=== PATIENT | male | born 1940 | race Caucasian/White ===

== ENCOUNTER → 2017-11-07 15:20 | Outpatient (CLI) | payer MEDICARE, SELFPAY | PROVIDERS: Visit Provider Emergency Medicine | DX: Z79.899 Other long term (current) drug therapy (principal) ==

== ENCOUNTER → 2017-11-10 13:28 | Outpatient (CLI) | payer MEDICARE, SELFPAY ==
[2017-11-10 15:27] LABS: Prostate Specific Ag, Diagnost < 0.05 ng/mL (0.0-4.0)
== END ==
PROVIDERS: Visit Provider Urology
DX: Z85.46 Personal history of malignant neoplasm of prostate (principal)
CPT/HCPCS: 36415; 84153

== ENCOUNTER → 2017-11-29 07:04 | Outpatient (CLI) | payer MEDICARE, SELFPAY ==
--- NOTE | 2017-11-29 07:07 | CA_ITS ---
PROCEDURE: 2-D M-mode and color Doppler study INDICATIONS FOR THE TEST: Chest pain+ COPD Heart Murmur Tobacco Smoking Palpitations Fatigue Syncope Edema Hypertension+Diabetes Mellitus+ Rheumatic Fever SOB+KRAMER Obesity+Hyperlipidemia+ Family History HD Additional History PROSTATE CA, STENT,CABG PATIENT INFORMATION HEIGHT: 67 WEIGHT:227 GENDER: Male B/P:125/56 2-D/M-MODE INTERPRETATION: 2-D MEASUREMENTS OBSERVED VALUES IN CMS Right Ventricular Dimension (RVDd) 2.7 Interventricular Septum (Thickness)(IVsd) 2.0 Left Ventricular Internal Dimensions(LVIDd) 5.1 Left Ventricular Posterior Wall (Thickness)(LVPWd) 1.0 Aortic Root 3.3 Aortic Cusp Separation 1.7 Left Atrial Dimensions (LAD) 5.2 2D 1. Technically difficult study because of the patient's factor and poor acoustic windows 2. The left atrium is moderately enlarged, left ventricle is normal size, there is mild concentric left ventricular hypertrophy, there is abnormal septal motion, visually estimated ejection fraction approximately 55% with no obvious regional wall motion abnormality. 3. The right atrium and right ventricle are mildly enlarged with normal contractility. 4. The aortic valve is minimally thickened and fibrosed. 5. The mitral and tricuspid valve leaflets are minimally thickened. 6. No significant pericardial effusion noted. DOPPLER INTERROGATION: Doppler interrogation of the aortic, mitral and tricuspid valvular presence of mild mitral and tricuspid regurgitation, tricuspid and jet velocity insufficient for calculation of the right ventricular systolic pressure, diastolic parameters are inconclusive. CONCLUSION: 1. Technically difficult study because of the patient's factor and poor acoustic windows. 2. Moderately enlarged left atrium, normal left ventricular size, mild concentric left ventricular hypertrophy, visually estimated ejection fraction approximately 55% with no obvious regional wall motion abnormality, there is abnormal septal motion. Diastolic parameters are inconclusive. 3. Mild mitral and tricuspid regurgitation 4. No significant pericardial effusion noted.
--- NOTE | 2017-11-29 07:07 | NM_ITS ---
History and Indications: Coronary artery disease, previous MO, angioplasty ascending, but possibility, hypertension, diabetes, hyperlipidemia, family history, chest pain and shortness of breath. Procedure: Patient received a 0.4, with Lexiscan, resting heart rate was 65 beats per resting blood pressure 142/58, with Lexiscan maximum heart rate achieved was 81 bpm which is less than 85% of the maximum predicted heart rate and a blood pressure was 139/66. With Lexiscan complaint no shortness of breath. Electrocardiogram: Resting electrocardiogram showed sinus rhythm left bundle-branch block with Lexiscan there is less than 1.[address] segment depression noted from the baseline EKG. The EKG portion of the Lexiscan Myoview is nondiagnostic. Cardiac stress and resting SPECT images: Cardiac stress and resting SPECT images were obtained using technetium 99 Myoview 30.0 mCi at stress and 9.7 millicuries at rest, gated SPECT further analysis of segmental wall motion and calculation of the ejection fraction also done. Cardiac stress and rest SPECT images show a mild fixed defect in the inferior wall with normal contractility in the gated SPECT is likely secondary to soft tissue attenuation, no reversible ischemia seen. Computer derived ejection fraction is 60% with no obvious regional wall motion abnormality, right ventricle is normal size and contractility. Conclusion: 1. The EKG portion of the Lexiscan Myoview is nondiagnostic. 2. No obvious scintigraphic evidence of reversible ischemia seen, computer derived ejection fraction is 60% with no obvious regional wall motion abnormality, right ventricle is normal size and contractility.
--- NOTE | 2017-11-29 09:23 | HMH.ITSHM ---
GABAPENTIN RANITIDINE SPIRONOLACTONE OMEPRAZOLE GEMFIBROZIL FUROSEMIDE ROSUVASTATIN FERROUS GLUC ASA METOPROLOL ISOSORBIDE TAMSULOSIN LISINOPRIL LANTUS NOVOLOG
== END ==
PROVIDERS: PCP Emergency Medicine; Visit Provider Internal Medicine
DX: I25.10 Atherosclerotic heart disease of native coronary artery without angina pectoris (principal); R07.9 Chest pain, unspecified; I27.20 Pulmonary hypertension, unspecified; I50.9 Heart failure, unspecified; E11.8 Type 2 diabetes mellitus with unspecified complications; R06.00 Dyspnea, unspecified; N18.2 Chronic kidney disease, stage 2 (mild)
CPT/HCPCS: 78452; 93017; 93306; A9502; J2785

== ENCOUNTER → 2018-01-13 11:31 | Outpatient (CLI) | payer MEDICARE, SELFPAY ==
[2018-01-13 11:52] LABS: Basophils % 0.4 % (0.1-2.0); Eosinophils # 0.3 K/mm3 (0.0-0.4); Eosinophils % 3.4 % (0.1-12.0); Lymphocytes # 1.3 K/mm3 (0.7-4.5); Mean Corpuscular HGB Conc 28.6 g/dL (31.8-35.4); Mean Corpuscular Hemoglobin 27.8 pg (27.0-31.2); Mean Corpuscular Volume 97.1 fl (80-94); Mean Platelet Volume 8.9 fl (7.4-10.4); Monocytes # 0.4 K/mm3 (0.1-1.0); Monocytes % 5.8 % (1.7-9.3); Neutrophils # 5.3 K/mm3 (1.8-7.8); Neutrophils % 72.4 % (37.0-80.0); Platelet Count 255 K/mm3 (142-424); Red Blood Count 2.83 M/mm3 (4.60-6.20); Red Cell Distribution Width 18.3 % (11.5-17.5); White Blood Count 7.3 K/mm3 (4.8-10.8)
[2018-01-13 12:12] LABS: Hematocrit 27.5 % (42.0-52.0)
[2018-01-13 12:16] LABS: Anion Gap 15.7 mEq/L (5-15); Blood Urea Nitrogen 44 mg/dL (7-18); Calcium 8.8 mg/dL (8.5-10.1); Carbon Dioxide 25 mmol/L (21.0-32.0); Chloride 102 mmol/L (98-107); Creatinine,Serum 1.86 mg/dL (0.70-1.30); Estimated Glomerular Filt Rate 36 ml/min (>60); GFR (African American) 43 ML/MIN (>60); Glucose 307 mg/dL (74-106); Hemoglobin 7.8 g/dL (14.1-18.0); Potassium 4.7 mmoL/L (3.5-5.1); Sodium 138 mmol/L (136-145)
== END ==
PROVIDERS: Visit Provider Internal Medicine Cardiovascular Disease
DX: E78.4 Other hyperlipidemia (principal)
CPT/HCPCS: 36415; 80048; 85025; 93225

== ENCOUNTER 2018-01-13 14:08 | Observation (INO) ==
[2018-01-13 14:28] LABS: Basophils % 0.5 % (0.1-2.0); Eosinophils # 0.3 K/mm3 (0.0-0.4); Hematocrit 24.7 % (42.0-52.0); Lymphocytes # 1.4 K/mm3 (0.7-4.5); Lymphocytes % 18.1 K/mm3 (10-50); Mean Corpuscular HGB Conc 30.1 g/dL (31.8-35.4); Mean Corpuscular Hemoglobin 29.1 pg (27.0-31.2); Mean Corpuscular Volume 96.5 fl (80-94); Mean Platelet Volume 7.7 fl (7.4-10.4); Monocytes # 0.4 K/mm3 (0.1-1.0); Monocytes % 5.8 % (1.7-9.3); Neutrophils # 5.5 K/mm3 (1.8-7.8); Neutrophils % 71.6 % (37.0-80.0); Platelet Count 258 K/mm3 (142-424); Red Blood Count 2.56 M/mm3 (4.60-6.20); Red Cell Distribution Width 18.4 % (11.5-17.5); White Blood Count 7.7 K/mm3 (4.8-10.8)
[2018-01-13 14:30] LABS: Hemoglobin 7.4 g/dL (14.1-18.0)
--- NOTE | 2018-01-13 14:31 | Emergency Department Note ---
ED Disposition Clinical Impression: Guaiac positive stools Anemia Qualifiers: Anemia type: unspecified type Qualified Code(s): D64.9 - Anemia, unspecified Disposition: Still a Patient Condition on Discharge: Fair Referrals: Duncan Heard MD [Primary Care Provider] - - Critical Care Critical Care Time: No Attestation: On 01/13/18, the high probability of a clinically significant, sudden or life threatening deterioration of the following system(s) required my full and direct attention, intervention and personal management. The time I documented below is in addition to time spent performing reported procedures but includes the following listed in this critical care notation. Medical Decision Making - Bill Inquiry Pt receiving controlled substance: No Vital Signs: 01/13/18 14:09 Temperature 97.8 F Temperature Source Oral Pulse Rate [Right Radial] 85 Respiratory Rate 22 Blood Pressure [Right Arm] 125/55 Blood Pressure Mean [Right Arm] 78 Blood Pressure Source [Right Arm] Automatic Cuff Blood Pressure Position [Right Arm] Sitting 02 Sat by Pulse Oximetry 95 Oxygen Delivery Method Room Air - Lab Data Lab Results 01/13/18 14:18: WBC 7.7, RBC 2.56 L, Hgb 7.4 L*, Hct 24.7 L, MCV 96.5 H, MCH 29.1, MCHC 30.1 L, RDW 18.4 H, Plt Count 258, MPV 7.7, Neut % (Auto) 71.6, Lymph % (Auto) 18.1, Sampson % (Auto) 5.8, Eos % (Auto) 4.0, Baso % (Auto) 0.5, Neut # (Auto) 5.5, Lymph # (Auto) 1.4, Sampson # (Auto) 0.4, Eos # (Auto) 0.3, Baso # (Auto) 0.0 01/13/18 14:18: Sodium 136, Potassium 4.6, Chloride 103, Carbon Dioxide 22, Anion Gap 15.6 H, BUN 45 H, Creatinine 1.94 H, Estimated Creat Clear 48, Estimated GFR 34 L, Est GFR ( Amer) 41 L, Glucose 304 H, Calcium 8.5 01/13/18 14:18: Troponin I < 0.02 01/13/18 14:40: Stool Occult Blood Positive A Result diagrams: 01/13/18 14:18 01/13/18 14:18 - ECG Data Tracing #1 EKG interpreted by Deondre Parker MD: Rhythm: sinus Rate: 81 Martha: normal Ectopy: Premature atrial contractions Conduction: Nonspecific intraventricular conduction delay ST Segment Changes: none T Wave Changes: none Q Waves: none Poor R-wave progression No evidence of acute ischemia or injury Prior electrocardiagrams reviewed. No change from prior tracings. - Physician Consults Physician Consulted: [place] Time: 15:22 Reason -: Admission Comment/Response: Agrees to admit the patient to the hospital. We discussed the patient's clinical information, including history, exam, laboratory and radiology results and ED course. Per hospital procedure, I will write temporary bridge inpatient orders on the patient. Specific orders requested by the admitting physician: Transfuse 2 units packed red blood cells, surgery consult, intravenous Protonix twice daily Additional Consult: Satya Time: 15:29 Reason -: Surgical Eval/Care General Adult HPI - General Chief complaint: Shortness of Breath/Dyspnea Stated complaint: SOA Time Seen by Provider: 01/13/18 14:30 Mode of Arrival: Wheelchair Limitations: No Limitations Description of Symptoms (Recalled from ER Triage Doc. by RN): Pt was seen by [facility] steam train driver today and his blood resulted with a hemoglobin of 7.8 and was asked to f/u in the ER. Pt states he is feeling short of breath. - History of Present Illness HPI narrative: States does not feel well for about 2-3 weeks. Dizzy, lightheaded. Feels weak. States that his home health nurse saw him yesterday and told him his blood pressure was low, he was not getting enough oxygen to his heart, he should go to [facility] to be checked out. He was seen in the steam train driver's office today. He had blood work that showed a hemoglobin of 7.4. He was sent to the emergency room for further evaluation. He is on 2 iron tablets a day. He says his stool has been black for couple of months. He has not vomited any blood. He has never received a transfusion. I reviewed his previous laboratory data and his hemoglobin was 9.2 on 02/24/17. He says he has never been told that he was anemic. - Related Data Home Medications Medication Instructions Recorded Confirmed aspirin 81 mg tablet,delayed 81 mg PO QDAY 08/05/17 01/13/18 release blood sugar diagnostic strips See Dose Instructions .ROUTE 08/05/17 01/13/18 .MEDSUPPLY #20 each insulin glargine (U-100) 100 65 unit SUB-Q BID ml 08/05/17 01/13/18 unit/mL subcutaneous solution insulin human U-100 NPH-regulr 10 unit SUB-Q BID 08/05/17 01/13/18 70-30 mix 100 unit/mL subcutaneous susp metoprolol tartrate 25 mg tablet 25 mg PO BID 08/05/17 01/13/18 gabapentin 300 mg capsule 300 mg PO Q8H 11/07/17 01/13/18 ranitidine 150 mg capsule 150 mg PO QHS 11/07/17 01/13/18 rosuvastatin 5 mg tablet 5 mg PO QHS tab 11/08/17 01/13/18 Clopidogrel Bisulfate [Plavix 75mg 75 mg PO DAILY 01/13/18 01/13/18 Tab] Furosemide [Furosemide 40MG tAB] 40 mg PO DAILY 01/13/18 01/13/18 Gabapentin [Neurontin 600mg 600 mg PO TID 01/13/18 01/13/18 tablet] Gemfibrozil 600 mg PO BID 01/13/18 01/13/18 Isosorbide Mononitrate [Imdur 60mg 60 mg PO QAM 01/13/18 01/13/18 ER tablet] Omeprazole [Omeprazole 20mg 20 mg PO DAILY 01/13/18 01/13/18 Capsule] Spironolactone [Aldactone 50mg Tab] 50 mg PO QAM 01/13/18 01/13/18 Tamsulosin HCl [Flomax] 0.4 mg PO DAILY 01/13/18 01/13/18 ferrous gluconate 324 mg (36 mg 324 mg PO BID 01/13/18 01/13/18 iron) tablet lisinopril 10 mg tablet 5 mg PO QDAY tab 01/13/18 01/13/18 Allergies Allergy/AdvReac Type Severity Reaction Status Date / Time oxycodone Allergy Intermediate I-RASH Verified 11/07/17 14:59 Sulfa (Sulfonamide Allergy Unknown Verified 11/07/17 14:59 Antibiotics) [facility] History I have reviewed the patient's past medical history: Yes Medical History: Reports:: Cancer, Congestive Heart Failure, Diabetes Mellitus Type 2, Gastroesophageal Reflux Disease(GERD), Hyperlipidemia, Hypertension, Kidney Stones, Myocardial Infarction Denies:: Diabetes Mellitus Type 1 Other Medical History: Reports: Arthritis Other Surgeries: Yes: Angioplasty, Cancer Surgery, Colonoscopy, Hernia Repair Amputation: No Fractures: No - Social History Smoking Status: Former smoker Alcohol Intake: never Alcohol Intake Frequency:: other Substance Use Type: denies use - Psychiatric History Expresses thoughts of harming self/others: None Suicide Plan Description: No Plan Family Hx:: Diabetes, Heart Attack, Cancer, Hyperlipidemia ROS Obtained: Yes All systems reviewed & no additional complaints - Constitutional Constitutional: Reports fatigue, Reports weakness - Cardiovascular Cardiovascular: Denies chest pain - Respiratory Respiratory: Yes dyspnea - Gastrointestinal Gastrointestingal: Reports: black, tarry stools. Denies: abdominal pain, vomiting blood Physical Exam - General General appearance: alert, in no apparent distress - Head Head exam: atraumatic, normocephalic, normal inspection - Eye Eye exam: Present: normal appearance, PERRL, EOMI - ENT ENT exam: Present: normal exam, normal oropharynx, mucous membranes moist, TM's normal bilaterally, normal external ear exam - Neck Neck exam: Present: normal inspection, full ROM, trachea midline. Absent: meningismus, lymphadenopathy - Chest Chest inspection: Present: normal inspection, symmetric chest wall rise. Absent : tenderness - Respiratory Respiratory exam: Present: normal lung sounds bilaterally. Absent: respiratory distress - Cardiovascular Cardiovascular exam: Present: regular rate, normal rhythm. Absent: JVD - Abdominal Exam Abdominal exam: Present: soft, normal bowel sounds. Absent: distention, tenderness, guarding - exam: Present: other (Dark stool) - Extremities Exam Extremities exam: Present: normal inspection, full ROM, normal capillary refill. Absent: calf tenderness - Neurological Exam Neurological exam: Present: alert, oriented X3 - Psychiatric Psychiatric exam: Present: normal affect, normal mood - Skin Skin exam: Present: warm, dry, intact, normal color
[2018-01-13 14:35] LABS: Anion Gap 15.6 mEq/L (5-15); Calcium 8.5 mg/dL (8.5-10.1); Potassium 4.6 mmoL/L (3.5-5.1)
--- NOTE | 2018-01-13 16:02 | Consult Report ---
*Admission Date: 01/13/18 *Chief complaint: Dizziness and weakness *History of present illness: This is a 77-year-old gentleman with a complex past medical history including coronary artery disease (s/p CABG), myocardial infarction, and claudication who presented to an outpatient cardiology appointment earlier today for further evaluation and management of recent "dizzy spells and weakness". He was found to be quite anemic with a hemoglobin of 7.4. He was transferred to the emergency department for further evaluation and management. He is on aspirin and Plavix. No definitive bright red blood per rectum. "Dark stool" for a couple months. No hematemesis. His symptoms are worsened over the past few weeks. Review of Systems - Constitutional Denies anorexia - ENT Denies bleeding gums - *Cardiovascular Denies chest pain - *Respiratory Denies cough - *Gastrointestinal Reports black, tarry stools, Denies vomiting blood - *Neurologic Reports weakness [facility] History Medical History: Reports:: Cancer, Congestive Heart Failure, Diabetes Mellitus Type 2, Gastroesophageal Reflux Disease(GERD), Hyperlipidemia, Hypertension, Kidney Stones, Myocardial Infarction Denies:: Diabetes Mellitus Type 1 Other Medical History: Reports: Arthritis Other Surgeries: Yes: Angioplasty, CABG, Cancer Surgery, Colonoscopy, Hernia Repair Amputation: No Fractures: No - *Social History Smoking Status: Former smoker Alcohol Intake: never Alcohol Intake Frequency:: other Substance Use Type: denies use - Psychiatric History Expresses thoughts of harming self/others: None Suicide Plan Description: No Plan *Family Hx:: Diabetes, Heart Attack, Cancer, Hyperlipidemia Meds Home Medications Medication Instructions Recorded Confirmed Type aspirin 81 mg tablet,delayed 81 mg PO QDAY 08/05/17 01/13/18 History release blood sugar diagnostic strips See Dose Instructions .ROUTE 08/05/17 01/13/18 History .MEDSUPPLY #20 each insulin glargine (U-100) 100 65 unit SUB-Q BID ml 08/05/17 01/13/18 History unit/mL subcutaneous solution insulin human U-100 NPH-regulr 10 unit SUB-Q BID 08/05/17 01/13/18 History 70-30 mix 100 unit/mL subcutaneous susp metoprolol tartrate 25 mg tablet 25 mg PO BID 08/05/17 01/13/18 History gabapentin 300 mg capsule 300 mg PO Q8H 11/07/17 01/13/18 History ranitidine 150 mg capsule 150 mg PO QHS 11/07/17 01/13/18 History rosuvastatin 5 mg tablet 5 mg PO QHS tab 11/08/17 01/13/18 History Clopidogrel Bisulfate [Plavix 75mg 75 mg PO DAILY 01/13/18 01/13/18 History Tab] Furosemide [Furosemide 40MG tAB] 40 mg PO DAILY 01/13/18 01/13/18 History Gabapentin [Neurontin 600mg 600 mg PO TID 01/13/18 01/13/18 History tablet] Gemfibrozil 600 mg PO BID 01/13/18 01/13/18 History Isosorbide Mononitrate [Imdur 60mg 60 mg PO QAM 01/13/18 01/13/18 History ER tablet] Omeprazole [Omeprazole 20mg 20 mg PO DAILY 01/13/18 01/13/18 History Capsule] Spironolactone [Aldactone 50mg Tab] 50 mg PO QAM 01/13/18 01/13/18 History Tamsulosin HCl [Flomax] 0.4 mg PO DAILY 01/13/18 01/13/18 History ferrous gluconate 324 mg (36 mg 324 mg PO BID 01/13/18 01/13/18 History iron) tablet lisinopril 10 mg tablet 5 mg PO QDAY tab 01/13/18 01/13/18 History Allergies Allergy/AdvReac Type Severity Reaction Status Date / Time oxycodone Allergy Intermediate I-RASH Verified 11/07/17 14:59 Sulfa (Sulfonamide Allergy Unknown Verified 11/07/17 14:59 Antibiotics) Exam Vital signs and Labs for Last 24 Hours: Temp Pulse Resp BP Pulse Ox 97.8 F 73 20 124/62 96 01/13/18 14:09 01/13/18 15:32 01/13/18 15:32 01/13/18 15:32 01/13/18 15:32 Laboratory Results - last 24 hr 01/13/18 14:18: WBC 7.7, RBC 2.56 L, Hgb 7.4 L*, Hct 24.7 L, MCV 96.5 H, MCH 29.1, MCHC 30.1 L, RDW 18.4 H, Plt Count 258, MPV 7.7, Neut % (Auto) 71.6, Lymph % (Auto) 18.1, Noble % (Auto) 5.8, Eos % (Auto) 4.0, Baso % (Auto) 0.5, Neut # (Auto) 5.5, Lymph # (Auto) 1.4, Noble # (Auto) 0.4, Eos # (Auto) 0.3, Baso # (Auto) 0.0 01/13/18 14:18: Sodium 136, Potassium 4.6, Chloride 103, Carbon Dioxide 22, Anion Gap 15.6 H, BUN 45 H, Creatinine 1.94 H, Estimated Creat Clear 48, Estimated GFR 34 L, Est GFR ( Amer) 41 L, Glucose 304 H, Calcium 8.5 01/13/18 14:18: Troponin I < 0.02 01/13/18 14:40: Stool Occult Blood Positive A I & O for Last 24 hours: Intake & Output 01/11/18 01/12/18 01/13/18 01/14/18 11:59 11:59 11:59 11:59 Weight 227 lb - Constitutional no acute distress - *Routine Respiratory Exam Absent: respiratory distress - *Routine Cardiovascular Exam Present: RRR - *Routine Abdominal Exam Present: soft Results - Labs 01/13/18 14:18 01/13/18 14:18 Laboratory Results - last 24 hr 01/13/18 14:18: WBC 7.7, RBC 2.56 L, Hgb 7.4 L*, Hct 24.7 L, MCV 96.5 H, MCH 29.1, MCHC 30.1 L, RDW 18.4 H, Plt Count 258, MPV 7.7, Neut % (Auto) 71.6, Lymph % (Auto) 18.1, Noble % (Auto) 5.8, Eos % (Auto) 4.0, Baso % (Auto) 0.5, Neut # (Auto) 5.5, Lymph # (Auto) 1.4, Noble # (Auto) 0.4, Eos # (Auto) 0.3, Baso # (Auto) 0.0 01/13/18 14:18: Sodium 136, Potassium 4.6, Chloride 103, Carbon Dioxide 22, Anion Gap 15.6 H, BUN 45 H, Creatinine 1.94 H, Estimated Creat Clear 48, Estimated GFR 34 L, Est GFR ( Amer) 41 L, Glucose 304 H, Calcium 8.5 01/13/18 14:18: Troponin I < 0.02 01/13/18 14:40: Stool Occult Blood Positive A Assessment and Plan (1) Melena Current visit: Yes Status: Acute Category: Medical Code(s): K92.1 - Melena Esophagogastroduodenoscopy-I have discussed the risks and benefits and he agrees to proceed (2) Anemia Current visit: Yes Status: Acute Qualifiers: Anemia type: unspecified type Qualified Code(s): D64.9 - Anemia, unspecified Category: Medical Code(s): D64.9 - Anemia, unspecified (3) Guaiac positive stools Current visit: Yes Status: Acute Category: Medical Code(s): R19.5 - Other fecal abnormalities Hold ASA and Plavix for now Transfuse as needed Serial H&H EGD today PPI Consider repeat c-scope in near future
--- NOTE | 2018-01-13 16:08 | Pharmacy Consult Notes ---
[facility] Pharmacy VTE Monitoring - Patient Demographics Admission date: 01/13/18 Report Date: 01/13/18 Time: 16:08 Allergies/Adverse Reactions: Patient Allergies oxycodone Allergy (Intermediate, Verified 11/07/17 14:59) I-RASH Sulfa (Sulfonamide Antibiotics) Allergy (Unknown, Verified 11/07/17 14:59) Height: 1.7 m Weight: 102.965 kg Patient Problems: Current Active Problems Anemia (Acute) Guaiac positive stools (Acute) Melena (Acute) - VTE Risk Labs: VTE Related Lab Results Hgb 7.4 g/dL (14.1-18.0) L* 01/13/18 14:18 Hct 24.7 % (42.0-52.0) L 01/13/18 14:18 Plt Count 258 K/mm3 (142-424) 01/13/18 14:18 BUN 45 mg/dL (7-18) H 01/13/18 14:18 Creatinine 1.94 mg/dL (0.70-1.30) H 01/13/18 14:18 Estimated Creat Clear 48 mL/min (0-300) 01/13/18 14:18 Clinical Trial Participant: No - Prophylaxis VTE Prophylaxis Ordered?: Yes Types of VTE Prophylaxis: TEDS Knee High
--- NOTE | 2018-01-13 22:14 | History & Physical Report ---
*Admission Date: 01/13/18 *Chief complaint: weakness *History of present illness: This is a 77-year-old gentleman with a complex past medical history including coronary artery disease (s/p CABG), myocardial infarction, and claudication who presented to an outpatient cardiology appointment earlier today for further evaluation and management of recent "dizzy spells and weakness". He was found to be quite anemic with a hemoglobin of 7.4. He was transferred to the emergency department for further evaluation and management. He is on aspirin and Plavix. No definitive bright red blood per rectum. "Dark stool" for a couple months. No hematemesis. His symptoms are worsened over the past few weeks. sue does not feel well for about 2-3 weeks. Dizzy, lightheaded. Feels weak. States that his home health nurse saw him yesterday and told him his blood pressure was low, he was not getting enough oxygen to his heart, he should go to [facility] to be checked out. He was seen in the insulating machine operator's office today. He had blood work that showed a hemoglobin of 7.4. He was sent to the emergency room for further evaluation. He is on 2 iron tablets a day. He says his stool has been black for couple of months. He has not vomited any blood. He has never received a transfusion. I reviewed his previous laboratory data and his hemoglobin was 9.2 on 02/24/17. [facility] History I have reviewed the patient's past medical history: Yes Medical History: Reports:: Cancer, Congestive Heart Failure, Diabetes Mellitus Type 2, Gastroesophageal Reflux Disease(GERD), Hyperlipidemia, Hypertension, Kidney Stones, Myocardial Infarction Denies:: Diabetes Mellitus Type 1, MRSA Other Medical History: Reports: Anemia, Arthritis Laterality Cases: Bilateral: Cataract Other Surgeries: Yes: Angioplasty, CABG, Cancer Surgery, Colonoscopy, Hernia Repair Amputation: No Fractures: No - *Social History Educational Level: Attended High School Smoking Status: Former smoker Tobacco Type: cigarettes Alcohol Intake: never Alcohol Intake Frequency:: other Substance Use Type: denies use Occupational Status: retired Housing: house Household Members: spouse, children - Psychiatric History Expresses thoughts of harming self/others: None Suicide Plan Description: No Plan *Family Hx:: Diabetes, Heart Attack, Cancer, Hyperlipidemia Review of Systems - Review of Systems Review of systems:: pertinent systems reviewed and negative unless documented below - Constitutional Denies fever(s), Denies headache(s) - Eyes Denies change in vision - ENT Denies sore throat - *Cardiovascular Denies chest pain at rest - *Respiratory Denies cough - *Gastrointestinal Reports black, tarry stools, Denies abdominal pain - *Genitourinary Denies blood in urine - *Musculoskeletal Denies joint pain, Denies joint swelling - Integumentary/Breasts Denies rash - *Neurologic Reports dizziness, Reports weakness, Denies confusion, Denies frequent falls, Denies loss of vision - Psychiatric Denies anxiety Meds Home Medications Medication Instructions Recorded Confirmed Type aspirin 81 mg tablet,delayed 81 mg PO QDAY 08/05/17 01/13/18 History release blood sugar diagnostic strips See Dose Instructions .ROUTE 08/05/17 01/13/18 History .MEDSUPPLY #20 each insulin glargine (U-100) 100 65 unit SUB-Q BID ml 08/05/17 01/13/18 History unit/mL subcutaneous solution insulin human U-100 NPH-regulr 10 unit SUB-Q BID 08/05/17 01/13/18 History 70-30 mix 100 unit/mL subcutaneous susp metoprolol tartrate 25 mg tablet 25 mg PO BID 08/05/17 01/13/18 History gabapentin 300 mg capsule 300 mg PO Q8H 11/07/17 01/13/18 History ranitidine 150 mg capsule 150 mg PO QHS 11/07/17 01/13/18 History rosuvastatin 5 mg tablet 5 mg PO QHS tab 11/08/17 01/13/18 History Clopidogrel Bisulfate [Plavix 75mg 75 mg PO DAILY 01/13/18 01/13/18 History Tab] Furosemide [Furosemide 40MG tAB] 40 mg PO DAILY 01/13/18 01/13/18 History Gabapentin [Neurontin 600mg 600 mg PO TID 01/13/18 01/13/18 History tablet] Gemfibrozil 600 mg PO BID 01/13/18 01/13/18 History Isosorbide Mononitrate [Imdur 60mg 60 mg PO QAM 01/13/18 01/13/18 History ER tablet] Omeprazole [Omeprazole 20mg 20 mg PO DAILY 06/15/18 06/15/18 History Capsule] Spironolactone [Aldactone 50mg Tab] 50 mg PO QAM 01/13/18 01/13/18 History Tamsulosin HCl [Flomax] 0.4 mg PO DAILY 01/13/18 01/13/18 History ferrous gluconate 324 mg (36 mg 324 mg PO BID 01/13/18 01/13/18 History iron) tablet lisinopril 10 mg tablet 5 mg PO QDAY tab 01/13/18 01/13/18 History Allergies Allergy/AdvReac Type Severity Reaction Status Date / Time oxycodone Allergy Intermediate I-RASH Verified 11/07/17 14:59 Sulfa (Sulfonamide Allergy Unknown Verified 11/07/17 14:59 Antibiotics) Exam Vital signs and Labs for Last 24 Hours: Temp Pulse Resp BP Pulse Ox 97.5 F L 65 18 131/72 98 01/13/18 20:30 01/13/18 20:30 01/13/18 20:30 01/13/18 20:30 01/13/18 20:30 Laboratory Results - last 24 hr 01/13/18 14:18: WBC 7.7, RBC 2.56 L, Hgb 7.4 L*, Hct 24.7 L, MCV 96.5 H, MCH 29.1, MCHC 30.1 L, RDW 18.4 H, Plt Count 258, MPV 7.7, Neut % (Auto) 71.6, Lymph % (Auto) 18.1, [place] % (Auto) 5.8, Eos % (Auto) 4.0, Baso % (Auto) 0.5, Neut # (Auto) 5.5, Lymph # (Auto) 1.4, [place] # (Auto) 0.4, Eos # (Auto) 0.3, Baso # (Auto) 0.0 01/13/18 14:18: Sodium 136, Potassium 4.6, Chloride 103, Carbon Dioxide 22, Anion Gap 15.6 H, BUN 45 H, Creatinine 1.94 H, Estimated Creat Clear 48, Estimated GFR 34 L, Est GFR ( Amer) 41 L, Glucose 304 H, Calcium 8.5 01/13/18 14:18: Troponin I < 0.02 01/13/18 14:40: Stool Occult Blood Positive A 01/13/18 16:00: Blood Type A Positive, Antibody Screen Negative, Crossmatch (AHG ) See Detail 01/13/18 16:45: Blood Type Confirm A Positive I & O for Last 24 hours: Intake & Output 01/11/18 01/12/18 01/13/18 01/14/18 11:59 11:59 11:59 11:59 Intake Total 120 / 120 Output Total 400 / 400 Balance -280 / -280 Weight 227 lb - Constitutional no acute distress, obese - *Routine HEENT Exam Head: Present: normocephalic Eye: Present: EOMI, PERRL. Absent: conjunctival icterus, scleral injection ENT: Present: mucous membranes dry - *Routine Neck Exam Absent: JVD - *Routine Respiratory Exam Present: CTA bilaterally - *Routine Cardiovascular Exam Present: RRR, murmur, S4 - *Routine Abdominal Exam Present: soft. Absent: tenderness - *Routine Extremities Exam Absent: calf tenderness - *Routine Skin Exam Present: intact - *Routine Neurological Exam Present: alert, oriented X3, CN II-XII intact - Routine Psychiatric Exam Present: normal affect H&P: Result - Labs Labs: Short CBC 01/13/18 Range/Units 14:18 WBC 7.7 (4.8-10.8) K/mm3 Hgb 7.4 L* (14.1-18.0) g/dL Hct 24.7 L (42.0-52.0) % Plt Count 258 (142-424) K/mm3 BMP 01/13/18 14:18 Sodium 136 Potassium 4.6 Chloride 103 Carbon Dioxide 22 BUN 45 H Creatinine 1.94 H Glucose 304 H Calcium 8.5 Cardiac Enzymes 01/13/18 Range/Units 14:18 Troponin I < 0.02 (0.00-0.06) ng/ml Assessment and Plan (1) Melena Current visit: Yes Status: Acute Category: Medical Code(s): K92.1 - Melena (2) Anemia Current visit: Yes Status: Acute Qualifiers: Anemia type: unspecified type Qualified Code(s): D64.9 - Anemia, unspecified Category: Medical Code(s): D64.9 - Anemia, unspecified (3) Guaiac positive stools Current visit: Yes Status: Acute Category: Medical Code(s): R19.5 - Other fecal abnormalities (4) Renal insufficiency Current visit: Yes Status: Acute Category: Medical Code(s): N28.9 - Disorder of kidney and ureter, unspecified (5) IDDM (insulin dependent diabetes mellitus) Current visit: Yes Status: Acute Category: Medical Code(s): E11.9 - Type 2 diabetes mellitus without complications; Z79.4 - intermodal dispatcher (current) 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
[2018-01-14 05:01] LABS: Calcium 8.4 mg/dL (8.5-10.1)
[2018-01-14 05:06] LABS: Basophils % 0.5 % (0.1-2.0); Eosinophils # 0.2 K/mm3 (0.0-0.4); Lymphocytes # 1.1 K/mm3 (0.7-4.5); Lymphocytes % 20.8 K/mm3 (10-50); Mean Corpuscular HGB Conc 33.2 g/dL (31.8-35.4); Mean Corpuscular Hemoglobin 31.5 pg (27.0-31.2); Mean Platelet Volume 7.5 fl (7.4-10.4); Monocytes # 0.3 K/mm3 (0.1-1.0); Monocytes % 5.6 % (1.7-9.3); Neutrophils # 3.5 K/mm3 (1.8-7.8); Neutrophils % 69.1 % (37.0-80.0); Platelet Count 203 K/mm3 (142-424); Red Blood Count 2.75 M/mm3 (4.60-6.20); Red Cell Distribution Width 17.4 % (11.5-17.5); White Blood Count 5.1 K/mm3 (4.8-10.8)
[2018-01-14 05:07] LABS: Hematocrit 26.1 % (42.0-52.0); Hemoglobin 8.7 g/dL (14.1-18.0)
--- NOTE | 2018-01-14 06:59 | Progress Note ---
Internal Medicine - PN: Subj *Date: 01/14/18 *Time: 06:56 Interval history: looking better - no c/o - glu elevated - possible egd pending Exam Vital signs and Labs for Last 24 Hours: Temp Pulse Resp BP Pulse Ox 98.6 F 69 20 144/57 94 L 01/14/18 04:15 01/14/18 04:15 01/14/18 04:15 01/14/18 04:15 01/14/18 04:15 Laboratory Results - last 24 hr 01/13/18 14:18: WBC 7.7, RBC 2.56 L, Hgb 7.4 L*, Hct 24.7 L, MCV 96.5 H, MCH 29.1, MCHC 30.1 L, RDW 18.4 H, Plt Count 258, MPV 7.7, Neut % (Auto) 71.6, Lymph % (Auto) 18.1, [place] % (Auto) 5.8, Eos % (Auto) 4.0, Baso % (Auto) 0.5, Neut # (Auto) 5.5, Lymph # (Auto) 1.4, [place] # (Auto) 0.4, Eos # (Auto) 0.3, Baso # (Auto) 0.0 01/13/18 14:18: Sodium 136, Potassium 4.6, Chloride 103, Carbon Dioxide 22, Anion Gap 15.6 H, BUN 45 H, Creatinine 1.94 H, Estimated Creat Clear 48, Estimated GFR 34 L, Est GFR ( Amer) 41 L, Glucose 304 H, Calcium 8.5 01/13/18 14:18: Troponin I < 0.02 01/13/18 14:40: Stool Occult Blood Positive A 01/13/18 16:00: Blood Type A Positive, Antibody Screen Negative, Crossmatch (AHG ) See Detail 01/13/18 16:45: Blood Type Confirm A Positive 01/13/18 21:04: POC Glucose 453 H* 01/14/18 04:35: WBC 5.1 D, RBC 2.75 L, Hgb 8.7 L D, Hct 26.1 L, MCV 95.0 H, MCH 31.5 H, MCHC 33.2, RDW 17.4, Plt Count 203, MPV 7.5, Neut % (Auto) 69.1, Lymph % (Auto) 20.8, [place] % (Auto) 5.6, Eos % (Auto) 4.0, Baso % (Auto) 0.5, Neut # (Auto) 3.5, Lymph # (Auto) 1.1, [place] # (Auto) 0.3, Eos # (Auto) 0.2, Baso # (Auto) 0.0 01/14/18 04:35: Sodium 136, Potassium 5.0, Chloride 104, Carbon Dioxide 23, Anion Gap 14.0, BUN 44 H, Creatinine 1.91 H, Estimated Creat Clear 31, Estimated GFR 35 L, Est GFR ( Amer) 42 L, Glucose 401 H* D, Calcium 8.4 L 01/14/18 06:10: POC Glucose 425 H* I & O for Last 24 hours: Intake & Output 01/11/18 01/12/18 01/13/18 01/14/18 11:59 11:59 11:59 11:59 Intake Total 720 / 720 Output Total 400 / 400 Balance 320 / 320 Weight 325 lb 4 oz - Constitutional no acute distress - *Routine HEENT Exam Head: Present: normocephalic Eye: Present: EOMI, PERRL ENT: Present: mucous membranes dry - *Routine Neck Exam Present: supple - *Routine Respiratory Exam Absent: respiratory distress - *Routine Cardiovascular Exam Present: RRR - *Routine Abdominal Exam Present: soft - *Routine Extremities Exam Absent: calf tenderness - *Routine Skin Exam Present: intact - *Routine Neurological Exam Present: alert, oriented X3, CN II-XII intact - Routine Psychiatric Exam Present: normal affect Assessment and Plan (1) Melena Current visit: Yes Status: Acute Category: Medical Code(s): K92.1 - Melena (2) Anemia Current visit: Yes Status: Acute Qualifiers: Anemia type: unspecified type Qualified Code(s): D64.9 - Anemia, unspecified Category: Medical Code(s): D64.9 - Anemia, unspecified (3) Guaiac positive stools Current visit: Yes Status: Acute Category: Medical Code(s): R19.5 - Other fecal abnormalities (4) Renal insufficiency Current visit: Yes Status: Acute Category: Medical Code(s): N28.9 - Disorder of kidney and ureter, unspecified (5) IDDM (insulin dependent diabetes mellitus) Current visit: Yes Status: Acute Category: Medical Code(s): E11.9 - Type 2 diabetes mellitus without complications; Z79.4 - 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
--- NOTE | 2018-01-14 13:01 | Progress Note ---
Subjective Patient reports: no new complaints (No complaints, no pain. Received 2u PRBC yesterday with increase of hgb from 7.4 to 8.7. Had dark, tarry BM this morning.) Exam Vital signs and Labs for Last 24 Hours: Temp Pulse Resp BP Pulse Ox 97.9 F 69 16 155/57 96 01/14/18 12:20 01/14/18 12:20 01/14/18 12:20 01/14/18 12:20 01/14/18 12:20 Laboratory Results - last 24 hr 01/13/18 14:18: WBC 7.7, RBC 2.56 L, Hgb 7.4 L*, Hct 24.7 L, MCV 96.5 H, MCH 29.1, MCHC 30.1 L, RDW 18.4 H, Plt Count 258, MPV 7.7, Neut % (Auto) 71.6, Lymph % (Auto) 18.1, [place] % (Auto) 5.8, Eos % (Auto) 4.0, Baso % (Auto) 0.5, Neut # (Auto) 5.5, Lymph # (Auto) 1.4, [place] # (Auto) 0.4, Eos # (Auto) 0.3, Baso # (Auto) 0.0 01/13/18 14:18: Sodium 136, Potassium 4.6, Chloride 103, Carbon Dioxide 22, Anion Gap 15.6 H, BUN 45 H, Creatinine 1.94 H, Estimated Creat Clear 48, Estimated GFR 34 L, Est GFR ( Amer) 41 L, Glucose 304 H, Calcium 8.5 01/13/18 14:18: Troponin I < 0.02 01/13/18 14:40: Stool Occult Blood Positive A 01/13/18 16:00: Blood Type A Positive, Antibody Screen Negative, Crossmatch (AHG ) See Detail 01/13/18 16:45: Blood Type Confirm A Positive 01/13/18 21:04: POC Glucose 453 H* 01/14/18 04:35: WBC 5.1 D, RBC 2.75 L, Hgb 8.7 L D, Hct 26.1 L, MCV 95.0 H, MCH 31.5 H, MCHC 33.2, RDW 17.4, Plt Count 203, MPV 7.5, Neut % (Auto) 69.1, Lymph % (Auto) 20.8, [place] % (Auto) 5.6, Eos % (Auto) 4.0, Baso % (Auto) 0.5, Neut # (Auto) 3.5, Lymph # (Auto) 1.1, [place] # (Auto) 0.3, Eos # (Auto) 0.2, Baso # (Auto) 0.0 01/14/18 04:35: Sodium 136, Potassium 5.0, Chloride 104, Carbon Dioxide 23, Anion Gap 14.0, BUN 44 H, Creatinine 1.91 H, Estimated Creat Clear 31, Estimated GFR 35 L, Est GFR ( Amer) 42 L, Glucose 401 H* D, Calcium 8.4 L 01/14/18 06:10: POC Glucose 425 H* 01/14/18 11:22: POC Glucose 287 H I & O for Last 24 hours: Intake & Output 01/11/18 01/12/18 01/13/18 01/14/18 23:59 23:59 23:59 23:59 Intake Total 120 / 120 600 / 600 Output Total 400 / 400 Balance -280 / -280 600 / 600 Weight 227 lb 325 lb 4 oz - Constitutional no acute distress - *Routine Respiratory Exam Present: CTA bilaterally. Absent: accessory muscle use - *Routine Cardiovascular Exam Present: RRR. Absent: bradycardia, tachycardia, irregular rhythm - *Routine Abdominal Exam Present: soft. Absent: tenderness, distended, rebound, guarding, rigid Progress Note: A&P (1) Melena Status: Acute Assessment and plan: Marginal response to 2u PRBCs overnight last night. Had dark, tarry BM this morning with minimal amount of red blood. Currently receiving 2 more units. Rechecking H/H following 2nd unit. If he doesn't respond appropriately to it, will proceed with EGD tomorrow. Current Visit: Yes (2) Anemia Status: Acute Current Visit: Yes (3) Guaiac positive stools Status: Acute Current Visit: Yes (4) Renal insufficiency Status: Acute Current Visit: Yes (5) IDDM (insulin dependent diabetes mellitus) Status: Acute Current Visit: Yes
[2018-01-14 17:16] LABS: Hemoglobin 11.1 g/dL (14.1-18.0)
[2018-01-15 06:51] LABS: Basophils % 0.5 % (0.1-2.0); Eosinophils # 0.2 K/mm3 (0.0-0.4); Eosinophils % 3.7 % (0.1-12.0); Hematocrit 36.9 % (42.0-52.0); Hemoglobin 11.2 g/dL (14.1-18.0); Lymphocytes # 1.1 K/mm3 (0.7-4.5); Lymphocytes % 19.2 K/mm3 (10-50); Mean Corpuscular HGB Conc 30.4 g/dL (31.8-35.4); Mean Corpuscular Hemoglobin 28.3 pg (27.0-31.2); Mean Platelet Volume 7.8 fl (7.4-10.4); Monocytes # 0.3 K/mm3 (0.1-1.0); Monocytes % 5.9 % (1.7-9.3); Neutrophils # 4.2 K/mm3 (1.8-7.8); Neutrophils % 70.8 % (37.0-80.0); Platelet Count 198 K/mm3 (142-424); Red Blood Count 3.97 M/mm3 (4.60-6.20); White Blood Count 5.9 K/mm3 (4.8-10.8)
[2018-01-15 06:52] LABS: Anion Gap 12.8 mEq/L (5-15); Calcium 8.6 mg/dL (8.5-10.1)
[2018-01-15 07:01] LABS: Potassium 5.8 mmoL/L (3.5-5.1)
--- NOTE | 2018-01-15 08:02 | Progress Note ---
Internal Medicine - PN: Subj *Date: 01/15/18 *Time: 08:00 Interval history: Patient slept well overnight and feels good, did have a black, tarry stool yesterday but no gross blood. No vomiting. Feels like he is hungry. Exam Vital signs and Labs for Last 24 Hours: Temp Pulse Resp BP Pulse Ox 99.2 F 65 20 149/90 95 01/15/18 04:00 01/15/18 04:00 01/15/18 04:00 01/15/18 04:00 01/15/18 04:00 Laboratory Results - last 24 hr 01/13/18 16:00: Blood Type A Positive, Antibody Screen Negative, Crossmatch (AHG ) See Detail 01/14/18 11:22: POC Glucose 287 H 01/14/18 16:35: POC Glucose 435 H* 01/14/18 16:56: Hgb 11.1 L D, Hct 37.0 L 01/14/18 19:57: POC Glucose 469 H* 01/15/18 05:57: POC Glucose 348 H* 01/15/18 06:11: WBC 5.9, RBC 3.97 L D, Hgb 11.2 L, Hct 36.9 L, MCV 93.0, MCH 28.3, MCHC 30.4 L, RDW 17.0, Plt Count 198, MPV 7.8, Neut % (Auto) 70.8, Lymph % (Auto) 19.2, [place] % (Auto) 5.9, Eos % (Auto) 3.7, Baso % (Auto) 0.5, Neut # ( Auto) 4.2, Lymph # (Auto) 1.1, [place] # (Auto) 0.3, Eos # (Auto) 0.2, Baso # (Auto ) 0.0 01/15/18 06:11: Sodium 136, Potassium 5.8 H, Chloride 103, Carbon Dioxide 26, Anion Gap 12.8, BUN 41 H, Creatinine 1.77 H, Estimated Creat Clear 34, Estimated GFR 38 L, Est GFR ( Amer) 46 L, Glucose 351 H, Calcium 8.6 I & O for Last 24 hours: Intake & Output 01/12/18 01/13/18 01/14/18 01/15/18 11:59 11:59 11:59 11:59 Intake Total 720 / 720 1400 / 1400 Output Total 400 / 400 Balance 320 / 320 1400 / 1400 Weight 325 lb 4 oz Narrative: Abdomen soft, nontender. Heart rate regular. Lungs are clear. Other than being grumpy about having blood work done early this morning patient is in good spirits. Assessment and Plan (1) Melena Current visit: Yes Status: Acute Category: Medical Code(s): K92.1 - Melena Melena continues although his blood count this morning is excellent excellent response to transfusion. Follow with surgical input today. I think it would be reasonable to give patient clear liquids today, plan for endoscopy tomorrow and then discharge if able. Repeat hemoglobin in the morning. No evidence of active bleeding at this point. (2) Anemia Current visit: Yes Status: Acute Qualifiers: Anemia type: unspecified type Qualified Code(s): D64.9 - Anemia, unspecified Category: Medical Code(s): D64.9 - Anemia, unspecified (3) Guaiac positive stools Current visit: Yes Status: Acute Category: Medical Code(s): R19.5 - Other fecal abnormalities (4) Renal insufficiency Current visit: Yes Status: Acute Category: Medical Code(s): N28.9 - Disorder of kidney and ureter, unspecified Creatinine has improved. Follow this tomorrow. (5) IDDM (insulin dependent diabetes mellitus) Current visit: Yes Status: Acute Category: Medical Code(s): E11.9 - Type 2 diabetes mellitus without complications; Z79.4 - group home (current) 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 Patient switched to high intensity sliding scale yesterday.
--- NOTE | 2018-01-15 13:16 | Progress Note ---
Subjective Patient reports: no new complaints (Transfused 2u PRBCs yesterday with appropriate response, and stable on daily check this morning. Denies any abdominal pain. Still unsteady on his feet, with lightheadedness. Still having dark stool, though less.) Exam Vital signs and Labs for Last 24 Hours: Temp Pulse Resp BP Pulse Ox 98.5 F 66 18 139/52 96 01/15/18 08:00 01/15/18 08:00 01/15/18 08:00 01/15/18 08:00 01/15/18 08:00 Laboratory Results - last 24 hr 01/13/18 16:00: Blood Type A Positive, Antibody Screen Negative, Crossmatch (AHG ) See Detail 01/14/18 16:35: POC Glucose 435 H* 01/14/18 16:56: Hgb 11.1 L D, Hct 37.0 L 01/14/18 19:57: POC Glucose 469 H* 01/15/18 05:57: POC Glucose 348 H* 01/15/18 06:11: WBC 5.9, RBC 3.97 L D, Hgb 11.2 L, Hct 36.9 L, MCV 93.0, MCH 28.3, MCHC 30.4 L, RDW 17.0, Plt Count 198, MPV 7.8, Neut % (Auto) 70.8, Lymph % (Auto) 19.2, [place] % (Auto) 5.9, Eos % (Auto) 3.7, Baso % (Auto) 0.5, Neut # ( Auto) 4.2, Lymph # (Auto) 1.1, [place] # (Auto) 0.3, Eos # (Auto) 0.2, Baso # (Auto ) 0.0 01/15/18 06:11: Sodium 136, Potassium 5.8 H, Chloride 103, Carbon Dioxide 26, Anion Gap 12.8, BUN 41 H, Creatinine 1.77 H, Estimated Creat Clear 34, Estimated GFR 38 L, Est GFR ( Amer) 46 L, Glucose 351 H, Calcium 8.6 01/15/18 12:13: POC Glucose 429 H* I & O for Last 24 hours: Intake & Output 01/12/18 01/13/18 01/14/18 01/15/18 23:59 23:59 23:59 23:59 Intake Total 120 / 120 1999 Output Total 400 / 400 Balance -280 / -280 1999 Weight 227 lb 325 lb 4 oz - Constitutional no acute distress, obese, cooperative - *Routine Respiratory Exam Present: CTA bilaterally. Absent: accessory muscle use - *Routine Cardiovascular Exam Present: RRR. Absent: tachycardia, irregular rhythm - *Routine Abdominal Exam Present: soft. Absent: tenderness, distended, rebound, guarding Progress Note: A&P (1) Melena Status: Acute Assessment and plan: Stable. H/H responded appropriately to transfusion yesterday and was stable on check this morning. Stools continue to be dark but becoming more normal in appearance. No evidence of ongoing active bleeding, will defer endoscopy today. Of note, patient denies any history of GERD symptoms. He is at risk of PUD given ASA/Plavix use, and active bleeding has apparently stopped with holding these medications and starting PPI. He also states he had several polyps removed on colonoscopy at some point in the past, but that his last colonoscopy with Dr. Chad Cooper about 3-5 years ago in [place] was otherwise normal. It would be reasonable to obtain these records from Dr. Cooper's office this week and consider repeating a colonoscopy to rule out colorectal cancer as source of lower GI bleed. I will defer timing of endoscopy to Dr. Hernadez, and will make patient NPO after midnight. Current Visit: Yes (2) Anemia Status: Acute Assessment and plan: H/H responded appropriately to transfusion yesterday. Recommend holding further transfusion and following with daily labs, and check sooner if patient becomes tachycardic or hypotensive. Current Visit: Yes (3) Guaiac positive stools Status: Acute Current Visit: Yes (4) Renal insufficiency Status: Acute Current Visit: Yes (5) IDDM (insulin dependent diabetes mellitus) Status: Acute Current Visit: Yes
[2018-01-16 05:33] LABS: Basophils % 0.5 % (0.1-2.0); Eosinophils # 0.3 K/mm3 (0.0-0.4); Eosinophils % 4.2 % (0.1-12.0); Hematocrit 38.4 % (42.0-52.0); Hemoglobin 11.6 g/dL (14.1-18.0); Lymphocytes # 1.1 K/mm3 (0.7-4.5); Lymphocytes % 16.6 K/mm3 (10-50); Mean Corpuscular HGB Conc 30.2 g/dL (31.8-35.4); Mean Corpuscular Hemoglobin 28.1 pg (27.0-31.2); Mean Platelet Volume 7.7 fl (7.4-10.4); Monocytes # 0.4 K/mm3 (0.1-1.0); Monocytes % 5.3 % (1.7-9.3); Neutrophils % 73.5 % (37.0-80.0); Platelet Count 191 K/mm3 (142-424); Red Blood Count 4.13 M/mm3 (4.60-6.20); Red Cell Distribution Width 16.5 % (11.5-17.5); White Blood Count 6.8 K/mm3 (4.8-10.8)
[2018-01-16 05:44] LABS: Anion Gap 13.1 mEq/L (5-15); Calcium 9.2 mg/dL (8.5-10.1)
[2018-01-16 05:50] LABS: Potassium 6.1 mmoL/L (3.5-5.1)
--- NOTE | 2018-01-16 08:02 | Progress Note ---
Internal Medicine - PN: Subj *Date: 01/16/18 *Time: 08:00 Interval history: Patient is sullen and irritated about still being in the hospital this morning. Otherwise has no physical complaints. Hemoglobin this morning is excellent. Potassium has been noted to be elevated. He is already had 1 dose of Kayexalate. Exam Vital signs and Labs for Last 24 Hours: Temp Pulse Resp BP Pulse Ox 98.0 F 62 16 189/45 97 01/16/18 07:32 01/16/18 07:32 01/16/18 07:32 01/16/18 07:32 01/16/18 07:32 Laboratory Results - last 24 hr 01/15/18 12:13: POC Glucose 429 H* 01/15/18 16:17: POC Glucose 481 H* 01/15/18 20:28: POC Glucose 424 H* 01/16/18 05:10: WBC 6.8, RBC 4.13 L, Hgb 11.6 L, Hct 38.4 L, MCV 93.0, MCH 28.1 , MCHC 30.2 L, RDW 16.5, Plt Count 191, MPV 7.7, Neut % (Auto) 73.5, Lymph % ( Auto) 16.6, [place] % (Auto) 5.3, Eos % (Auto) 4.2, Baso % (Auto) 0.5, Neut # (Auto ) 5.0, Lymph # (Auto) 1.1, [place] # (Auto) 0.4, Eos # (Auto) 0.3, Baso # (Auto) 0.0 01/16/18 05:10: Sodium 133 L, Potassium 6.1 H*, Chloride 100, Carbon Dioxide 26 , Anion Gap 13.1, BUN 41 H, Creatinine 1.84 H, Estimated Creat Clear 32, Estimated GFR 36 L, Est GFR ( Amer) 44 L, Glucose 414 H*, Calcium 9.2 01/16/18 05:57: POC Glucose 412 H* I & O for Last 24 hours: Intake & Output 01/13/18 01/14/18 01/15/18 01/16/18 11:59 11:59 11:59 11:59 Intake Total 720 / 720 1400 / 1400 1200 / 1200 Output Total 400 / 400 900 / 900 Balance 320 / 320 1400 / 1400 300 / 300 Weight 325 lb 4 oz Narrative: Heart rate regular. Lungs clear. Abdomen soft. No edema. Patient is alert and oriented 3. Assessment and Plan (1) Melena Current visit: Yes Status: Acute Category: Medical Code(s): K92.1 - Melena (2) Anemia Current visit: Yes Status: Acute Qualifiers: Anemia type: unspecified type Qualified Code(s): D64.9 - Anemia, unspecified Category: Medical Code(s): D64.9 - Anemia, unspecified (3) Guaiac positive stools Current visit: Yes Status: Acute Category: Medical Code(s): R19.5 - Other fecal abnormalities (4) Renal insufficiency Current visit: Yes Status: Acute Category: Medical Code(s): N28.9 - Disorder of kidney and ureter, unspecified (5) IDDM (insulin dependent diabetes mellitus) Current visit: Yes Status: Acute Category: Medical Code(s): E11.9 - Type 2 diabetes mellitus without complications; Z79.4 - alf (current) 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 - Assessment and plan all Dx Assessment and Plan for all problems:: 1. Anemia with evidence of upper GI bleed. Hemoglobin has responded nicely to transfusion. Patient will be subjected to endoscopy tomorrow morning and hopefully discharge after that procedure depending on results. 2. Hyperkalemia-Kayexalate has been given. Recheck potassium this afternoon. I have stopped spironolactone lisinopril. 3. Diabetes-patient is of the opinion that we are "spinning our wheels" with sliding scale insulin because at home "I take a lot more insulin." I discussed with him that given his dietary variability and intermittent n.p.o. status we will continue to use sliding scale to avoid significant hypoglycemia risk.
--- NOTE | 2018-01-16 08:07 | Progress Note ---
Subjective Patient reports: no new complaints Exam Vital signs and Labs for Last 24 Hours: Temp Pulse Resp BP Pulse Ox 98.0 F 62 16 189/45 97 01/16/18 07:32 01/16/18 07:32 01/16/18 07:32 01/16/18 07:32 01/16/18 07:32 Laboratory Results - last 24 hr 01/15/18 12:13: POC Glucose 429 H* 01/15/18 16:17: POC Glucose 481 H* 01/15/18 20:28: POC Glucose 424 H* 01/16/18 05:10: WBC 6.8, RBC 4.13 L, Hgb 11.6 L, Hct 38.4 L, MCV 93.0, MCH 28.1 , MCHC 30.2 L, RDW 16.5, Plt Count 191, MPV 7.7, Neut % (Auto) 73.5, Lymph % ( Auto) 16.6, Delta % (Auto) 5.3, Eos % (Auto) 4.2, Baso % (Auto) 0.5, Neut # (Auto ) 5.0, Lymph # (Auto) 1.1, Delta # (Auto) 0.4, Eos # (Auto) 0.3, Baso # (Auto) 0.0 01/16/18 05:10: Sodium 133 L, Potassium 6.1 H*, Chloride 100, Carbon Dioxide 26 , Anion Gap 13.1, BUN 41 H, Creatinine 1.84 H, Estimated Creat Clear 32, Estimated GFR 36 L, Est GFR ( Amer) 44 L, Glucose 414 H*, Calcium 9.2 01/16/18 05:57: POC Glucose 412 H* I & O for Last 24 hours: Intake & Output 01/13/18 01/14/18 01/15/18 01/16/18 11:59 11:59 11:59 11:59 Intake Total 720 / 720 1400 / 1400 1200 / 1200 Output Total 400 / 400 900 / 900 Balance 320 / 320 1400 / 1400 300 / 300 Weight 325 lb 4 oz - *Routine Abdominal Exam Present: soft Progress Note: A&P (1) Melena Status: Acute Assessment and plan: EGD tomorrow. Current Visit: Yes (2) Anemia Status: Acute Current Visit: Yes (3) Guaiac positive stools Status: Acute Current Visit: Yes (4) Renal insufficiency Status: Acute Current Visit: Yes (5) IDDM (insulin dependent diabetes mellitus) Status: Acute Current Visit: Yes
[2018-01-16 15:28] LABS: Anion Gap 11.2 mEq/L (5-15); Calcium 9.2 mg/dL (8.5-10.1); Potassium 5.2 mmoL/L (3.5-5.1)
--- NOTE | 2018-01-17 07:00 | Progress Note ---
Subjective Patient reports: no new complaints Exam Vital signs and Labs for Last 24 Hours: Temp Pulse Resp BP Pulse Ox 97.8 F 65 18 132/57 99 01/17/18 04:00 01/17/18 04:00 01/17/18 04:00 01/17/18 04:00 01/17/18 04:00 Laboratory Results - last 24 hr 01/16/18 11:32: POC Glucose 437 H* 01/16/18 15:00: Sodium 136, Potassium 5.2 H, Chloride 100, Carbon Dioxide 30, Anion Gap 11.2, BUN 39 H, Creatinine 1.75 H, Estimated Creat Clear 33, Estimated GFR 38 L, Est GFR ( Amer) 46 L, Glucose 407 H*, Calcium 9.2 01/16/18 16:54: POC Glucose 484 H* 01/16/18 20:22: POC Glucose 421 H* 01/17/18 06:36: POC Glucose 289 H I & O for Last 24 hours: Intake & Output 01/14/18 01/15/18 01/16/18 01/17/18 11:59 11:59 11:59 11:59 Intake Total 720 / 720 1400 / 1400 1200 / 1200 20 20 Output Total 400 / 400 900 / 900 Balance 320 / 320 1400 / 1400 300 / 300 20 / 20 Weight 325 lb 4 oz 325 lb 4.003 oz - *Routine Abdominal Exam Present: soft Progress Note: A&P (1) Melena Status: Acute Assessment and plan: EGD today. Current Visit: Yes (2) Anemia Status: Acute Current Visit: Yes (3) Guaiac positive stools Status: Acute Current Visit: Yes (4) Renal insufficiency Status: Acute Current Visit: Yes (5) IDDM (insulin dependent diabetes mellitus) Status: Acute Current Visit: Yes
--- NOTE | 2018-01-17 08:24 | Progress Note ---
Internal Medicine - PN: Subj *Date: 01/17/18 *Time: 08:23 Exam Vital signs and Labs for Last 24 Hours: Temp Pulse Resp BP Pulse Ox 98.9 F 61 18 177/66 92 L 01/17/18 07:35 01/17/18 07:35 01/17/18 07:35 01/17/18 07:35 01/17/18 07:35 Laboratory Results - last 24 hr 01/16/18 11:32: POC Glucose 437 H* 01/16/18 15:00: Sodium 136, Potassium 5.2 H, Chloride 100, Carbon Dioxide 30, Anion Gap 11.2, BUN 39 H, Creatinine 1.75 H, Estimated Creat Clear 33, Estimated GFR 38 L, Est GFR ( Amer) 46 L, Glucose 407 H*, Calcium 9.2 01/16/18 16:54: POC Glucose 484 H* 01/16/18 20:22: POC Glucose 421 H* 01/17/18 06:36: POC Glucose 289 H I & O for Last 24 hours: Intake & Output 01/14/18 01/15/18 01/16/18 01/17/18 11:59 11:59 11:59 11:59 Intake Total 720 / 720 1400 / 1400 1200 / 1200 20 / 20 Output Total 400 / 400 900 / 900 Balance 320 / 320 1400 / 1400 300 / 300 20 / 20 Weight 325 lb 4 oz 325 lb 4.003 oz - Constitutional no acute distress - *Routine HEENT Exam Head: Present: normocephalic Eye: Present: PERRL ENT: Present: mucous membranes moist - *Routine Neck Exam Present: full ROM - *Routine Respiratory Exam Present: CTA bilaterally - *Routine Cardiovascular Exam Present: RRR - *Routine Abdominal Exam Present: soft, normoactive bowel sounds - *Routine Extremities Exam Present: full ROM - *Routine Skin Exam Present: intact - *Routine Neurological Exam Present: alert, oriented X3, CN II-XII intact - Routine Psychiatric Exam Present: normal affect, normal thought process Assessment and Plan (1) Melena Current visit: Yes Status: Acute Category: Medical Code(s): K92.1 - Melena (2) Anemia Current visit: Yes Status: Acute Qualifiers: Anemia type: unspecified type Qualified Code(s): D64.9 - Anemia, unspecified Category: Medical Code(s): D64.9 - Anemia, unspecified (3) Guaiac positive stools Current visit: Yes Status: Acute Category: Medical Code(s): R19.5 - Other fecal abnormalities (4) Renal insufficiency Current visit: Yes Status: Acute Category: Medical Code(s): N28.9 - Disorder of kidney and ureter, unspecified (5) IDDM (insulin dependent diabetes mellitus) Current visit: Yes Status: Acute Category: Medical Code(s): E11.9 - Type 2 diabetes mellitus without complications; Z79.4 - shelter (current) 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 - Assessment and plan all Dx Assessment and Plan for all problems:: rounded with davidson, all orders per elizabet
--- NOTE | 2018-01-17 12:16 | Procedure Note ---
- Procedure: Date: 01/17/18 Procedure Performed:: Esophagogastroduodenoscopy with biopsies Indications:: Patient is a 7-year-old white male. He has numerous medical comorbidities. He is insulin dependent diabetic. Is a history of chronic renal insufficiency. He is on aspirin and Plavix. He was admitted on 01/13/18 with anemia and melena. Patient was infused with excellent response. Hemoglobin and hematocrit have been stable for several days. Plan was made to proceed with upper endoscopy. Performing Provider:: Marco Antonio Farias MD Referring Provider:: Rom Brady MD Sedation:: Propofol Procedure:: Consent was obtained patient was taken to endoscopy procedure room. Positioned in a lateral decubitus position. Adequate intravenous sedation was achieved with anesthesia titration of propofol. Olympus endoscope was inserted via the oropharynx and advanced to the esophagus. Majority of the esophagus appeared normal however the distal esophagus at the gastroesophageal junction there was significant erosive esophagitis and findings possibly consistent with Munson's esophagus. There was a deep linear erosion with some adherent heme material and exudate. This appeared to be source of potential recent bleeding. Stomach was cannulated and insufflated and retroflexion revealed a small hiatal hernia. There is diffuse moderate gastritis. Gastric mucosal biopsy was obtained for CLOtest for H. pylori. There were a couple of potential fundic gland polyps which were biopsied in the gastric body. Pylorus was traversed. Duodenal bulb and duodenal sweep were normal. Endoscope was withdrawn. 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 No active bleeding at this time. Recommend continuation of therapeutic dose proton pump inhibitors. If hemoglobin remains stable over the next 24 hours we will be discharged home for follow-up outpatient upper endoscopy in several weeks. Complications:: None Estimated blood obtained (mL): 1
--- NOTE | 2018-01-17 12:46 | Progress Note ---
[place] Anesthesia Checklist - Patient Identification Patient Identification: Arm Band - Structural Data Admitted From: Inpatient Planned Operative Procedure/s: egd Consent for Planned Operative Procedure(s) Verified: Yes Verified Documents: Surgical Consent, History and Physical - NPO Status Verified Time NPO: 00:00 - Additional verifications Anesthesia Reactions: No - Airway Assessment C-Spine Mobility Assessed: Yes (mp2) TMJ Mobility Assessed: Yes Dentition: Edentulous - Neurological Assessment Level of Consciousness: Awake, Alert - Anesthesia Plan Anesthesia Risk discussed: Yes Anesthesia Plan: Verified ASA Class: III Anesthesia Type: MAC [place] Anesthesia HX I have reviewed the patient's past medical history: Yes Medical History: Reports:: Cancer, Congestive Heart Failure, Coronary Artery Disease, Diabetes Mellitus Type 2, Gastroesophageal Reflux Disease(GERD), Hyperlipidemia, Hypertension, Kidney Stones, Myocardial Infarction Denies:: Diabetes Mellitus Type 1, MRSA Other Medical History: Reports: Anemia, Arthritis Laterality Cases: Bilateral: Cataract Other Surgeries: Yes: Angioplasty, CABG, Cancer Surgery, Colonoscopy, Hernia Repair Amputation: No Fractures: No *Family Hx:: Diabetes, Heart Attack, Cancer, Hyperlipidemia
[2018-01-18 07:20] LABS: Basophils % 0.4 % (0.1-2.0); Eosinophils # 0.3 K/mm3 (0.0-0.4); Eosinophils % 3.6 % (0.1-12.0); Hemoglobin 12.2 g/dL (14.1-18.0); Lymphocytes # 1.3 K/mm3 (0.7-4.5); Lymphocytes % 16.9 K/mm3 (10-50); Mean Corpuscular HGB Conc 30.6 g/dL (31.8-35.4); Mean Corpuscular Hemoglobin 28.3 pg (27.0-31.2); Mean Corpuscular Volume 92.3 fl (80-94); Mean Platelet Volume 7.4 fl (7.4-10.4); Monocytes # 0.4 K/mm3 (0.1-1.0); Monocytes % 5.1 % (1.7-9.3); Neutrophils # 5.5 K/mm3 (1.8-7.8); Neutrophils % 74.1 % (37.0-80.0); Platelet Count 198 K/mm3 (142-424); Red Blood Count 4.33 M/mm3 (4.60-6.20); Red Cell Distribution Width 15.8 % (11.5-17.5); White Blood Count 7.4 K/mm3 (4.8-10.8)
[2018-01-18 07:27] LABS: Albumin Level 3.4 gm/dL (3.4-5.0); Albumin/Globulin Ratio 0.9 (1.1-1.8); Anion Gap 14.3 mEq/L (5-15); Bilirubin,Total 0.6 mg/dL (0.2-1.0); Calcium 8.8 mg/dL (8.5-10.1); Globulin 3.7 gm/dl (1.3-3.2); Potassium 4.3 mmoL/L (3.5-5.1); Total Protein,Serum 7.1 gm/dL (6.4-8.2)
[2018-01-18 07:45] VITALS: BP 136/60
--- NOTE | 2018-01-18 07:50 | Progress Note ---
Subjective Patient reports: no new complaints Narrative: Tolerating diabetic diet. No clinical bleeding. FSBS apparently have been an issue. Exam Vital signs and Labs for Last 24 Hours: Temp Pulse Resp BP Pulse Ox 97.8 F 65 18 136/60 97 01/18/18 07:43 01/18/18 07:43 01/18/18 07:43 01/18/18 07:43 01/18/18 07:43 Laboratory Results - last 24 hr 01/17/18 16:30: POC Glucose 558 H* 01/17/18 16:43: Random Glucose 588 H* 01/17/18 20:36: Random Glucose 551 H* 01/18/18 06:20: WBC 7.4, RBC 4.33 L, Hgb 12.2 L, Hct 40.0 L, MCV 92.3, MCH 28.3 , MCHC 30.6 L, RDW 15.8, Plt Count 198, MPV 7.4, Neut % (Auto) 74.1, Lymph % ( Auto) 16.9, [place] % (Auto) 5.1, Eos % (Auto) 3.6, Baso % (Auto) 0.4, Neut # (Auto ) 5.5, Lymph # (Auto) 1.3, [place]iss # (Auto) 0.4, Eos # (Auto) 0.3, Baso # (Auto) 0.0 01/18/18 06:20: Sodium 136, Potassium 4.3, Chloride 99, Carbon Dioxide 27, Anion Gap 14.3, BUN 44 H, Creatinine 1.81 H, Estimated Creat Clear 49, Estimated GFR 37 L, Est GFR ( Amer) 44 L, Glucose 258 H, Calcium 8.8, Total Bilirubin 0.6, AST 11 L, ALT 19, Alkaline Phosphatase 95, Total Protein 7.1, Albumin 3.4, Globulin 3.7 H, Albumin/Globulin Ratio 0.9 L 01/18/18 06:34: POC Glucose 268 H I & O for Last 24 hours: Intake & Output 01/15/18 01/16/18 01/17/18 01/18/18 11:59 11:59 11:59 11:59 Intake Total 1400 / 1400 1200 / 1200 840 / 840 Output Total 900 / 900 950 / 950 Balance 1400 / 1400 300 / 300 -110 / -110 Weight 325 lb 4.003 oz 216 lb 3 oz - Constitutional no acute distress - *Routine Abdominal Exam Present: soft Progress Note: A&P (1) Melena Status: Acute Assessment and plan: Okay from surgical standpoint for discharge on PPIs. Would plan for outpatient EGD in 6-8 weeks to assess for healing and for biopsies. Current Visit: Yes (2) Anemia Status: Acute Current Visit: Yes (3) Guaiac positive stools Status: Acute Current Visit: Yes (4) Renal insufficiency Status: Acute Current Visit: Yes (5) IDDM (insulin dependent diabetes mellitus) Status: Acute Current Visit: Yes
--- NOTE | 2018-01-18 08:16 | Discharge Summary ---
General - General Admission date:: 01/13/18 Discharge date: 01/18/18 HPI HPI: This is a 77-year-old gentleman with a complex past medical history including coronary artery disease (s/p CABG), myocardial infarction, and claudication who presented to an outpatient cardiology appointment earlier today for further evaluation and management of recent "dizzy spells and weakness". He was found to be quite anemic with a hemoglobin of 7.4. He was transferred to the emergency department for further evaluation and management. He is on aspirin and Plavix. No definitive bright red blood per rectum. "Dark stool" for a couple months. No hematemesis. His symptoms are worsened over the past few weeks. sue does not feel well for about 2-3 weeks. Dizzy, lightheaded. Feels weak. States that his home health nurse saw him yesterday and told him his blood pressure was low, he was not getting enough oxygen to his heart, he should go to [facility] to be checked out. He was seen in the geochemist's office today. He had blood work that showed a hemoglobin of 7.4. He was sent to the emergency room for further evaluation. He is on 2 iron tablets a day. He says his stool has been black for couple of months. He has not vomited any blood. He has never received a transfusion. I reviewed his previous laboratory data and his hemoglobin was 9.2 on 02/24/17. Hospital Course Hospital Course: Patient was admitted, transfused with a total of 4 units of packed cells and did well with hemoglobin going up to 11 g He was then subjected to EGD yesterday which revealed a linear tear at the base of the esophagus but no evidence of active bleeding. The patient's hemoglobin has once again improved this morning. He feels well, and he will be discharged home with follow-up as scheduled below., Along with twice daily proton pump inhibitor. Objective Vital signs: Temp Pulse Resp BP Pulse Ox 97.8 F 65 18 136/60 97 01/18/18 07:43 01/18/18 07:43 01/18/18 07:43 01/18/18 07:43 01/18/18 07:43 Narrative: Patient talkative, alert. Lungs are clear, heart rate regular, abdomen soft and nontender. Results Labs on day of discharge: Labs from last 24 hours 01/18/18 01/18/18 01/18/18 06:34 06:20 06:20 WBC 7.4 RBC 4.33 L Hgb 12.2 L Hct 40.0 L MCV 92.3 MCH 28.3 MCHC 30.6 L RDW 15.8 Plt Count 198 MPV 7.4 Neut % (Auto) 74.1 Lymph % (Auto) 16.9 [place] % (Auto) 5.1 Eos % (Auto) 3.6 Baso % (Auto) 0.4 Neut # (Auto) 5.5 Lymph # (Auto) 1.3 [place] # (Auto) 0.4 Eos # (Auto) 0.3 Baso # (Auto) 0.0 Sodium 136 Potassium 4.3 Chloride 99 Carbon Dioxide 27 Anion Gap 14.3 BUN 44 H Creatinine 1.81 H Estimated Creat Clear 49 Estimated GFR 37 L Est GFR ( Amer) 44 L Glucose 258 H POC Glucose 268 H Random Glucose Calcium 8.8 Total Bilirubin 0.6 AST 11 L ALT 19 Alkaline Phosphatase 95 Total Protein 7.1 Albumin 3.4 Globulin 3.7 H Albumin/Globulin Ratio 0.9 L 01/17/18 01/17/18 01/17/18 20:36 16:43 16:30 WBC RBC Hgb Hct MCV MCH MCHC RDW Plt Count MPV Neut % (Auto) Lymph % (Auto) [place] % (Auto) Eos % (Auto) Baso % (Auto) Neut # (Auto) Lymph # (Auto) [place] # (Auto) Eos # (Auto) Baso # (Auto) Sodium Potassium Chloride Carbon Dioxide Anion Gap BUN Creatinine Estimated Creat Clear Estimated GFR Est GFR ( Amer) Glucose POC Glucose 558 H* Random Glucose 551 H* 588 H* Calcium Total Bilirubin AST ALT Alkaline Phosphatase Total Protein Albumin Globulin Albumin/Globulin Ratio DS: Diagnosis - Discharge Diagnosis (1) Melena Status: Acute (2) Anemia Status: Acute (3) Guaiac positive stools Status: Acute (4) Renal insufficiency Status: Acute (5) IDDM (insulin dependent diabetes mellitus) Status: Acute (6) Upper GI bleed Status: Acute Discharge Plan - Patient Discharge Instructions ACTIVITY: Continue current activity DIET: continue same diet Patient Instructions: Kidney Failure, Type 1 Diabetes, Anemia, Gastrointestinal Bleeding, Hyperkalemia - Follow up Plan Follow up with: Duncan Heard MD [Primary Care Provider] - Disposition: Home, Self-Fci Medications: Home Medications Medication Instructions Recorded Confirmed Type aspirin 81 mg tablet,delayed 81 mg PO DAILY 08/05/17 01/14/18 History release insulin glargine (U-100) 100 65 unit SUB-Q BID ml 08/05/17 01/13/18 History unit/mL subcutaneous solution insulin human U-100 NPH-regulr 10 unit SUB-Q BID 08/05/17 01/13/18 History 70-30 mix 100 unit/mL subcutaneous susp metoprolol tartrate 25 mg tablet 25 mg PO BID 08/05/17 01/13/18 History ranitidine 150 mg capsule 150 mg PO HS 11/07/17 01/14/18 History Clopidogrel Bisulfate [Plavix 75mg 75 mg PO DAILY 01/13/18 01/13/18 History Tab] Furosemide [Furosemide 40MG tAB] 40 mg PO DAILY 01/13/18 01/13/18 History Gabapentin [Neurontin 600mg 600 mg PO TID 01/13/18 01/13/18 History tablet] Gemfibrozil 600 mg PO BID 01/13/18 01/13/18 History Isosorbide Mononitrate [Imdur 60mg 60 mg PO DAILY 01/13/18 01/14/18 History ER tablet] Spironolactone [Aldactone 50mg Tab] 50 mg PO DAILY 01/13/18 01/14/18 History ferrous gluconate 324 mg (36 mg 324 mg PO BID 01/13/18 01/13/18 History iron) tablet lisinopril 10 mg tablet 5 mg PO DAILY tab 01/13/18 01/14/18 History Rosuvastatin Calcium [Crestor] 10 mg PO HS 01/14/18 01/14/18 History Tamsulosin HCl [Flomax 0.4mg 0.4 mg PO DAILY 01/14/18 01/14/18 History capsule] Prescriptions/Medication Reconciliation: Continue metoprolol tartrate 25 mg tablet 25 mg PO BID insulin glargine (U-100) 100 unit/mL subcutaneous solution 65 unit SUB-Q BID ml ranitidine 150 mg capsule 150 mg PO HS lisinopril 10 mg tablet 5 mg PO DAILY tab aspirin 81 mg tablet,delayed release 81 mg PO DAILY insulin human U-100 NPH-regulr 70-30 mix 100 unit/mL subcutaneous susp 10 unit SUB-Q BID Spironolactone [Aldactone 50mg Tab] 50 mg PO DAILY Isosorbide Mononitrate [Imdur 60mg ER tablet] 60 mg PO DAILY Gemfibrozil 600 mg PO BID Gabapentin [Neurontin 600mg tablet] 600 mg PO TID Furosemide [Furosemide 40MG tAB] 40 mg PO DAILY ferrous gluconate 324 mg (36 mg iron) tablet 324 mg PO BID Rosuvastatin Calcium [Crestor] 10 mg PO HS Tamsulosin HCl [Flomax 0.4mg capsule] 0.4 mg PO DAILY Changed Omeprazole [Omeprazole 20mg Capsule] 20 mg PO BID #60 capsule. Discontinued Clopidogrel Bisulfate [Plavix 75mg Tab] 75 mg PO DAILY Other Amb Orders: Basic Metabolic Panel Time Frame: 01/21/18, Location: None Selected Complete Blood Count Auto Diff Time Frame: 01/15/18, Location: None Selected
== END 2018-01-18 10:37 | disposition home or self-care (01) ==
LOC: ER 14:08 → 2ND 14:08 → INTOOBSV 16:20 → OBSVTOIN 16:20 → 2ND 16:25
PROVIDERS: ADMIT Emergency Medicine; ATTEND Emergency Medicine

== ENCOUNTER → 2018-01-21 16:15 | Outpatient (CLI) | payer MEDICARE, OTHER, SELFPAY ==
[2018-01-21 18:50] LABS: Basophils % 0.6 % (0.1-2.0); Eosinophils # 0.2 K/mm3 (0.0-0.4); Eosinophils % 3.4 % (0.1-12.0); Hematocrit 41.5 % (42.0-52.0); Hemoglobin 12.3 g/dL (14.1-18.0); Lymphocytes # 1.2 K/mm3 (0.7-4.5); Mean Corpuscular HGB Conc 29.5 g/dL (31.8-35.4); Mean Corpuscular Volume 94.7 fl (80-94); Monocytes # 0.3 K/mm3 (0.1-1.0); Monocytes % 4.8 % (1.7-9.3); Neutrophils # 4.5 K/mm3 (1.8-7.8); Neutrophils % 72.3 % (37.0-80.0); Platelet Count 209 K/mm3 (142-424); Red Blood Count 4.38 M/mm3 (4.60-6.20); Red Cell Distribution Width 15.3 % (11.5-17.5); White Blood Count 6.2 K/mm3 (4.8-10.8)
[2018-01-21 19:32] LABS: Anion Gap 13.8 mEq/L (5-15); Blood Urea Nitrogen 27 mg/dL (7-18); Calcium 8.5 mg/dL (8.5-10.1); Carbon Dioxide 22 mmol/L (21.0-32.0); Chloride 108 mmol/L (98-107); Creatinine,Serum 1.37 mg/dL (0.70-1.30); Estimated Glomerular Filt Rate 51 ml/min (>60); GFR (African American) 61 ML/MIN (>60); Glucose 173 mg/dL (74-106); Potassium 4.8 mmoL/L (3.5-5.1); Sodium 139 mmol/L (136-145)
== END ==
PROVIDERS: PCP Emergency Medicine; Visit Provider Internal Medicine Adolescent Medicine
DX: K92.2 Gastrointestinal hemorrhage, unspecified (principal)
CPT/HCPCS: 80048; 85025

== ENCOUNTER → 2018-02-08 12:50 | Outpatient (CLI) | payer MEDICARE, OTHER, SELFPAY ==
--- NOTE | 2018-02-08 12:55 | US_ITS ---
US Arterial Ankle Brachial Ind History: ITS.REASON: claudication ORDERING PHYSICIAN: Jaquan Aly MD PATIENT AGE: 77 years TECHNIQUE: Segmental pressures obtained of both right and left leg. These are compared to brachial blood pressure to yield index at each level sampled including summary RICH. The data sheets from the procedure are available in PACS FINDINGS Rest study only performed today No prior studies available for comparison. Blood pressures reported are in millimeters mercury. RIGHT LEG RICH = .6. RIGHT LEG TBI=.5 Brachial BP: 134 Thigh BP: 114 Calf BP: 93 Ankle PT: 83 Ankle DP : 90 Digit =61 LEFT LEG RICH = .9 LEFT LEG TBI= .8 Brachial BPD: 133 Thigh BP: 161 Calf BP: 104 Ankle PT:116 Ankle DP: 92 Digit = 100 Pulses and waveforms: Diminished pulses and waveforms bilaterally IMPRESSION: 1. The right RICH is low at 0.6 suggesting moderate peripheral vascular disease on the right. The TBI also low on the right suggesting small vessel disease 2. The left RICH and TBI are within normal limits
--- NOTE | 2018-02-08 12:55 | CI_ITS ---
Cerebrovascular Exam Indications: 780.4 Dizziness and giddiness. 433.10 Occlusion/stenosis of carotid artery without cerebral infarction. IMPRESSIONS 1. The bilateral vertebral arteries are patent with normal antegrade flow. 2. Study suggests less than 20% stenosis involving the right internal carotid artery. 3. Study suggests 20-49%(LOWER END OF SCALE)stenosis involving the left internal carotid artery. History: Coronary artery disease. Risk factors: Hypertension. Diabetes mellitus. Hyperlipidemia. Carotid duplex study. Complete study and Doppler flow study including spectral analysis, color and rivas scale imaging. Height: Height: 170.2cm. Height: 67in. Weight: Weight: 101.6kg. Weight: 223.5lb. Body mass index: BMI: 35.1kg/m^2. Body surface area: BSA: 2.23m^2. Location: Vascular laboratory. Patient status: Outpatient. Tables: Arterial flow: + +--------+--------+ Location V sys V ed + +--------+--------+ Right CCA - proximal 91.1cm/s 22cm/s + +--------+--------+ Right CCA - distal 99.8cm/s 18.9cm/s + +--------+--------+ Right ECA 132cm/s -------- + +--------+--------+ Right ICA - proximal 158cm/s 33.7cm/s + +--------+--------+ Right ICA - mid 89.8cm/s 20.2cm/s + +--------+--------+ Right ICA - distal 114cm/s 23.6cm/s + +--------+--------+ Right vertebral 74.1cm/s -------- + +--------+--------+ Left CCA - proximal 109cm/s 21.3cm/s + +--------+--------+ Left CCA - distal 123cm/s 18cm/s + +--------+--------+ Left ECA 139cm/s -------- + +--------+--------+ Left ICA - proximal 98.8cm/s 18cm/s + +--------+--------+ Left ICA - mid 120cm/s 26.9cm/s + +--------+--------+ Left ICA - distal 107cm/s 26.9cm/s + +--------+--------+ Left vertebral 44.9cm/s -------- + +--------+--------+ Velocity ratios: + + + + + + Right, V sys Right, V ed Left, V sys Left, V ed + + + + + + Max ICA/dist CCA 1.58 1.78 0.98 1.49 + + + + + + (Report amended ) Electronically signed by: Massimo Gaston [id number]
== END ==
PROVIDERS: PCP Emergency Medicine; Visit Provider Internal Medicine
DX: I73.9 Peripheral vascular disease, unspecified (principal); R42 Dizziness and giddiness
CPT/HCPCS: 93880; 93922

== ENCOUNTER → 2018-02-22 15:03 | Outpatient (CLI) | payer MEDICARE, OTHER, SELFPAY ==
[2018-02-22 16:01] LABS: Blood Urea Nitrogen 21 mg/dL (7-18); Calcium 9.1 mg/dL (8.5-10.1); Carbon Dioxide 25 mmol/L (21.0-32.0); Chloride 107 mmol/L (98-107); Creatinine,Serum 1.43 mg/dL (0.70-1.30); Estimated Glomerular Filt Rate 48 ml/min (>60); GFR (African American) 58 ML/MIN (>60); Glucose 153 mg/dL (74-106); Sodium 142 mmol/L (136-145)
== END ==
PROVIDERS: Visit Provider Internal Medicine
DX: R94.31 Abnormal electrocardiogram [ECG] [EKG] (principal); R42 Dizziness and giddiness
CPT/HCPCS: 36415; 80048

== ENCOUNTER → 2018-04-04 16:41 | Outpatient (REF) | payer MEDICARE, OTHER, SELFPAY ==
[2018-04-04 18:04] LABS: Basophils % 0.5 % (0.1-2.0); Eosinophils # 0.2 K/mm3 (0.0-0.4); Eosinophils % 2.3 % (0.1-12.0); Hematocrit 37.7 % (42.0-52.0); Hemoglobin 11.9 g/dL (14.1-18.0); Lymphocytes # 1.4 K/mm3 (0.7-4.5); Lymphocytes % 15.9 K/mm3 (10-50); Mean Corpuscular HGB Conc 31.5 g/dL (31.8-35.4); Mean Corpuscular Hemoglobin 27.8 pg (27.0-31.2); Mean Corpuscular Volume 88.1 fl (80-94); Mean Platelet Volume 7.7 fl (7.4-10.4); Monocytes # 0.4 K/mm3 (0.1-1.0); Neutrophils # 6.6 K/mm3 (1.8-7.8); Neutrophils % 76.3 % (37.0-80.0); Platelet Count 254 K/mm3 (142-424); Red Blood Count 4.28 M/mm3 (4.60-6.20); Red Cell Distribution Width 15.3 % (11.5-17.5); White Blood Count 8.6 K/mm3 (4.8-10.8)
[2018-04-04 18:24] LABS: Chol/HDL Ratio 4.9 (1-3.5); Cholesterol 138 mg/dL (140-200); HDL Cholesterol 28 mg/dL (27-67); LDL Cholesterol 55 mg/dL (0-130); Triglycerides 273 mg/dL (30-200); VLDL Cholesterol 55 mg/dL (0-40)
== END ==
LOC: LAB 16:41
PROVIDERS: Visit Provider Emergency Medicine
DX: E11.9 Type 2 diabetes mellitus without complications (principal); Z79.4 Long term (current) 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; R42 Dizziness and giddiness; E78.5 Hyperlipidemia, unspecified
CPT/HCPCS: 80061; 83036; 85025

== ENCOUNTER → 2018-05-01 15:40 | Outpatient (REF) | payer MEDICARE, OTHER, SELFPAY ==
[2018-05-01 18:29] LABS: Basophils % 0.6 % (0.1-2.0); Eosinophils # 0.2 K/mm3 (0.0-0.4); Eosinophils % 3.8 % (0.1-12.0); Hematocrit 32.8 % (42.0-52.0); Hemoglobin 10.2 g/dL (14.1-18.0); Lymphocytes # 1.1 K/mm3 (0.7-4.5); Lymphocytes % 18.3 K/mm3 (10-50); Mean Corpuscular HGB Conc 31.2 g/dL (31.8-35.4); Mean Corpuscular Hemoglobin 28.1 pg (27.0-31.2); Mean Corpuscular Volume 89.9 fl (80-94); Mean Platelet Volume 7.7 fl (7.4-10.4); Monocytes # 0.3 K/mm3 (0.1-1.0); Monocytes % 5.1 % (1.7-9.3); Neutrophils # 4.4 K/mm3 (1.8-7.8); Neutrophils % 72.2 % (37.0-80.0); Platelet Count 231 K/mm3 (142-424); Red Blood Count 3.65 M/mm3 (4.60-6.20); Red Cell Distribution Width 16.9 % (11.5-17.5); White Blood Count 6.1 K/mm3 (4.8-10.8)
[2018-05-01 18:52] LABS: Ferritin 26 ng/mL (8-388)
[2018-05-03 10:15] LABS: Iron 75 ug/dL (38-169); UIBC 294 ug/dL (111-343)
[2018-05-03 11:34] LABS: Iron Saturation 20 % (15-55)
== END ==
LOC: LAB 15:40
PROVIDERS: Visit Provider Emergency Medicine
DX: D64.9 Anemia, unspecified (principal)
CPT/HCPCS: 82728; 83540; 83550; 85025

== ENCOUNTER → 2018-05-08 14:08 | Outpatient (REF) | payer MEDICARE, OTHER, SELFPAY ==
[2018-05-08 18:46] LABS: Blood Urea Nitrogen 28 mg/dL (7-18); Calcium 9.1 mg/dL (8.5-10.1); Carbon Dioxide 25 mmol/L (21.0-32.0); Chloride 106 mmol/L (98-107); Estimated Glomerular Filt Rate 42 ml/min (>60); GFR (African American) 51 ML/MIN (>60); Glucose 141 mg/dL (74-106); Sodium 143 mmol/L (136-145)
== END ==
LOC: LAB 14:08
PROVIDERS: PCP Emergency Medicine; Visit Provider Emergency Medicine
DX: R42 Dizziness and giddiness (principal)
CPT/HCPCS: 80048

== ENCOUNTER 2018-08-23 12:02 | Inpatient (IN) ==
--- NOTE | 2018-08-23 12:11 | Emergency Department Note ---
ED Disposition Clinical Impression: Exertional angina Anemia Qualifiers: Anemia type: unspecified type Qualified Code(s): D64.9 - Anemia, unspecified Disposition: Admitted As Inpatient Condition on Discharge: Fair - Critical Care Critical Care Time: No Attestation: On , the high probability of a clinically significant, sudden or life threatening deterioration of the following system(s) required my full and direct attention, intervention and personal management. The time I documented below is in addition to time spent performing reported procedures but includes the following listed in this critical care notation. Medical Decision Making - Bill Inquiry Pt receiving controlled substance: No Vital Signs: 08/23/18 12:02 08/23/18 15:24 08/23/18 15:38 Pulse Rate [Left Radial] 77 109 H 91 H Respiratory Rate 22 Blood Pressure [Right Arm] 157/61 H 137/62 Blood Pressure Mean [Right Arm] 93 87 Blood Pressure Source [Right Arm] Automatic Cuff Automatic Cuff Blood Pressure Position [Right Arm] Sitting 02 Sat by Pulse Oximetry 99 99 100 Oxygen Delivery Method Room Air Nasal Cannula Nasal Cannula Oxygen Flow Rate (LPM) 2 2 - Lab Data Lab Results 08/23/18 11:55: WBC 5.4, RBC 3.13 L, Hgb 8.3 L, Hct 29.5 L, MCV 94.3 H, MCH 26.5 L, MCHC 28.1 L, RDW 15.9, Plt Count 282, MPV 7.4, Neut % (Auto) 66.8, Lymph % (Auto) 21.6, [place] % (Auto) 7.3, Eos % (Auto) 3.7, Baso % (Auto) 0.5, Neut # (Auto) 3.6, Lymph # (Auto) 1.2, [place] # (Auto) 0.4, Eos # (Auto) 0.2, Baso # (Auto) 0.0 08/23/18 11:55: Sodium 142, Potassium 4.5, Chloride 107, Carbon Dioxide 24, Anion Gap 15.5 H, BUN 26 H, Creatinine 1.77 H, Estimated Creat Clear 52, Estimated GFR 38 L, Est GFR ( Amer) 45 L, Glucose 220 H, Calcium 8.6, Troponin I 0.02 Result diagrams: 08/23/18 11:55 08/23/18 11:55 Orders (Tests/Meds): ED MEDICATIONS Generic Name Dose Route Start Last Admin Trade Name Elizabet PRN Reason Stop Dose Admin Aspirin 81 mg 08/24/18 09:00 Aspirin 81mg Enteric Coated Tablet PO 09/23/18 08:59 DAILY [facility] Clopidogrel Bisulfate 75 mg 08/24/18 09:00 Plavix 75mg Tablet PO 09/23/18 08:59 DAILY [facility] Ferrous Sulfate 325 mg 08/23/18 21:00 Ferrous Sulfate 325mg Tablet PO 09/22/18 20:59 BID [facility] Furosemide 40 mg 08/24/18 09:00 Lasix 40mg Tablet PO 09/23/18 08:59 DAILY [facility] Gabapentin 600 mg 08/23/18 21:00 Neurontin 600mg Tablet PO 09/22/18 20:59 TID [facility] Gemfibrozil 600 mg 08/23/18 21:00 Lopid 600mg Tablet PO 09/22/18 20:59 BID [facility] Sodium Chloride 250 mls @ 25 mls/hr 08/23/18 15:43 Sod Chlor 0.9% 250ml Bag IV 08/24/18 15:42 .Q10H [facility] Insulin Human Lispro 0 unit 08/23/18 16:30 Humalog 100 Units/Ml 3ml Vial (Ssi) SQ 09/22/18 16:29 ACHS [facility] Protocol Isosorbide Mononitrate 60 mg 08/24/18 09:00 Imdur 60mg Er Tablet PO 09/23/18 08:59 DAILY [facility] Lisinopril 5 mg 08/24/18 09:00 Zestril 5mg Tablet PO 09/23/18 08:59 DAILY [facility] Metoprolol Tartrate 25 mg 08/23/18 21:00 Lopressor 25mg Tablet PO 09/22/18 20:59 HS [facility] Pantoprazole Sodium 40 mg 08/23/18 21:00 Protonix 40mg Tablet PO 09/22/18 20:59 BID [facility] Pravastatin Sodium 40 mg 08/23/18 21:00 Pravachol 40mg Tablet PO 09/22/18 20:59 HS [facility] Spironolactone 50 mg 08/24/18 09:00 Aldactone 25mg Tablet PO 09/23/18 08:59 DAILY [facility] Tamsulosin HCl 0.4 mg 08/24/18 09:00 Flomax 0.4mg Capsule PO 09/23/18 08:59 DAILY [facility] - ECG Data Tracing #1 EKG interpreted by Deondre Parker MD: Rhythm: sinus arrhythmia Rate: 73 [place]: normal Ectopy: none Conduction: Left bundle branch block No evidence of acute ischemia or injury Prior electrocardiagrams reviewed. No change from prior tracings. - Physician Consults Physician Consulted: [place] Time: 13:43 Reason -: Admission Comment/Response: Agrees to admit the patient to the hospital. We discussed the patient's clinical information, including history, exam, laboratory and radiology results and ED course. Per hospital procedure, I will write temporary bridge inpatient orders on the patient. Specific orders requested by the admitting physician: Transfuse 1 unit packed red blood cells, consult Dr. Aly Additional Consult: [place]ermain - present Time: 13:48 Reason -: Cardiology Eval/Care General Adult HPI - General Chief complaint: Chest Pain Stated complaint: Chest pain Time Seen by Provider: 08/23/18 12:15 Mode of Arrival: Ambulatory Limitations: No Limitations Description of Symptoms (Recalled from ER Triage Doc. by RN): Started having chest pain across his upper chest and SOA a few weeks ago - History of Present Illness HPI narrative: For a couple of weeks he gets chest pain, dizziness, and shortness of breath with very little exertion. It goes away with rest. Currently pain-free. Got short of breath walking in here, that is going away as he lays here. Prior history of coronary artery disease, coronary bypass surgery, stent placement. 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 Last intervention was within the last year. The patient does not know whether he has a diagnosis of congestive heart failure. No leg swelling. Admitted in December 2017, anemia with transfusion. EGD showed a tear of the GE junction without active bleeding. - Related Data Home Medications Medication Instructions Recorded Confirmed aspirin 81 mg tablet,delayed 81 mg PO DAILY 08/05/17 08/23/18 release clopidogrel 75 mg tablet 75 mg PO DAILY tab 02/15/18 08/23/18 rosuvastatin 20 mg tablet 20 mg PO DAILY 03/20/18 08/23/18 Ferrous Gluconate [Ferrous 324 mg PO BID 08/23/18 08/23/18 Gluconate 324mg Tab] Linagliptin [Tradjenta 5mg tablet] 5 mg PO DAILY 08/23/18 08/23/18 Lisinopril [Prinivil 5mg Tablet] 5 mg PO DAILY 08/23/18 08/23/18 glipiZIDE [Glucotrol] 5 mg PO BID 08/23/18 08/23/18 insulin glargine (U- 100) 100 50 unit SUB-Q BID ml 08/23/18 08/23/18 unit/mL subcutaneous solution insulin lispro (U- 100) 100 100 unit SQ BID ml 08/23/18 08/23/18 unit/mL subcutaneous cartridge Previous Rx's Medication Instructions Recorded Omeprazole [Omeprazole 20mg 20 mg PO BID #60 capsule. 01/18/18 Capsule] gemfibrozil 600 mg tablet 600 mg PO BID #180 tab 03/06/18 tamsulosin 0.4 mg capsule 0.4 mg PO DAILY #90 cap 04/26/18 spironolactone 50 mg tablet 50 mg PO DAILY #90 tab 05/26/18 furosemide 40 mg tablet 40 mg PO DAILY #90 tab 06/14/18 metoprolol tartrate 25 mg tablet 25 mg PO QHS #90 tab 06/26/18 gabapentin 600 mg tablet 600 mg PO TID #270 tab 06/30/18 isosorbide mononitrate ER 60 mg 60 mg PO DAILY #90 tab 06/30/18 tablet,extended release 24 hr Allergies Allergy/AdvReac Type Severity Reaction Status Date / Time oxycodone Allergy Intermediate I-RASH Verified 08/23/18 11:25 Sulfa (Sulfonamide Allergy Unknown Verified 08/23/18 11:25 Antibiotics) [facility] History - Hepatitis A Screen Drug use history?: No High risk sexual behaviors?: No History of sexually transmitted infection?: No Currently employed?: No Childcare worker?: No Do you have indoor plumbing?: Yes Do you have electricity?: Yes Attestation statement:: This patient has been screened for Hepatitis A risk factors. I have reviewed the patient's past medical history: Yes Medical History: Reports:: Cancer, Congestive Heart Failure, Coronary Artery Disease, Diabetes Mellitus Type 2, Gastroesophageal Reflux Disease(GERD), Hyperlipidemia, Hypertension, Kidney Stones, Myocardial Infarction Denies:: Diabetes Mellitus Type 1, Internal Pacemaker, MRSA, Seizures Other Medical History: Reports: Anemia, Arthritis Other Surgeries: Yes: Angioplasty, CABG, Cancer Surgery, Cardiac Catheterizatio n, Cardiac Surgery, Colonoscopy, Hernia Repair. No: Pacemaker Amputation: No Fractures: No Comment: Bilateral Runoff - Social History Smoking Status: Former smoker Tobacco Type: cigarettes Alcohol Intake: never Alcohol Intake Frequency:: other Substance Use Type: denies use Occupational Status: retired Housing: house Household Members: spouse - Psychiatric History Expresses thoughts of harming self/others: None Suicide Plan Description: No Plan Family Hx:: Heart Attack, Diabetes ROS Obtained: Yes All systems reviewed & no additional complaints - Constitutional Constitutional: Denies fever(s) - Cardiovascular Cardiovascular: Reports chest pain, Denies diaphoresis, Denies leg edema - Respiratory Respiratory: Yes dyspnea - Gastrointestinal Gastrointestingal: Denies: nausea, vomiting Physical Exam - General General appearance: alert, in no apparent distress - Head Head exam: atraumatic, normocephalic - Eye Eye exam: Present: normal appearance, PERRL, EOMI - ENT ENT exam: Present: mucous membranes moist - Neck Neck exam: Present: normal inspection, trachea midline - Chest Chest inspection: Present: normal inspection, symmetric chest wall rise - Respiratory Respiratory exam: Present: normal lung sounds bilaterally. Absent: respiratory distress - Cardiovascular Cardiovascular exam: Present: regular rate, normal rhythm, normal heart sounds - Abdominal Exam Abdominal exam: Present: soft. Absent: distention, tenderness - Extremities Exam Extremities exam: Present: normal inspection. Absent: tenderness, pedal edema, calf tenderness - Neurological Exam Neurological exam: Present: alert, oriented X3 - Psychiatric Psychiatric exam: Present: normal affect, normal mood - Skin Skin exam: Present: warm, dry
[2018-08-23 12:49] LABS: Basophils % 0.5 % (0.1-2.0); Eosinophils # 0.2 K/mm3 (0.0-0.4); Eosinophils % 3.7 % (0.1-12.0); Hematocrit 29.5 % (42.0-52.0); Hemoglobin 8.3 g/dL (14.1-18.0); Lymphocytes # 1.2 K/mm3 (0.7-4.5); Lymphocytes % 21.6 % (10-50); Mean Corpuscular HGB Conc 28.1 g/dL (31.8-35.4); Mean Corpuscular Hemoglobin 26.5 pg (27.0-31.2); Mean Corpuscular Volume 94.3 fl (80-94); Mean Platelet Volume 7.4 fl (7.4-10.4); Monocytes # 0.4 K/mm3 (0.1-1.0); Monocytes % 7.3 % (1.7-9.3); Neutrophils # 3.6 K/mm3 (1.8-7.8); Neutrophils % 66.8 % (37.0-80.0); Platelet Count 282 K/mm3 (142-424); Red Blood Count 3.13 M/mm3 (4.60-6.20); Red Cell Distribution Width 15.9 % (11.5-17.5); White Blood Count 5.4 K/mm3 (4.8-10.8)
[2018-08-23 12:51] LABS: Anion Gap 15.5 mEq/L (5-15); Calcium 8.6 mg/dL (8.5-10.1); Potassium 4.5 mmoL/L (3.5-5.1)
[2018-08-24 00:35] LABS: Hematocrit 30.6 % (42.0-52.0); Hemoglobin 8.6 g/dL (14.1-18.0)
[2018-08-24 06:54] LABS: Basophils % 0.4 % (0.1-2.0); Eosinophils # 0.2 K/mm3 (0.0-0.4); Eosinophils % 3.3 % (0.1-12.0); Hemoglobin 8.3 g/dL (14.1-18.0); Lymphocytes # 1.1 K/mm3 (0.7-4.5); Lymphocytes % 20.4 % (10-50); Mean Corpuscular HGB Conc 28.5 g/dL (31.8-35.4); Mean Corpuscular Hemoglobin 26.4 pg (27.0-31.2); Mean Corpuscular Volume 92.6 fl (80-94); Monocytes # 0.3 K/mm3 (0.1-1.0); Monocytes % 6.1 % (1.7-9.3); Neutrophils # 3.7 K/mm3 (1.8-7.8); Neutrophils % 69.7 % (37.0-80.0); Platelet Count 247 K/mm3 (142-424); Red Blood Count 3.13 M/mm3 (4.60-6.20); Red Cell Distribution Width 16.1 % (11.5-17.5); White Blood Count 5.2 K/mm3 (4.8-10.8)
--- NOTE | 2018-08-24 07:20 | Pharmacy Consult Notes ---
[facility] Pharmacy VTE Monitoring - Patient Demographics Admission date: 08/24/18 Report Date: 08/24/18 Time: 07:19 Allergies/Adverse Reactions: Patient Allergies oxycodone Allergy (Intermediate, Verified 08/23/18 11:25) I-RASH Sulfa (Sulfonamide Antibiotics) Allergy (Unknown, Verified 08/23/18 11:25) Height: 1.7 m Weight: 99.025 kg Patient Problems: Current Active Problems Anemia (Acute) Exertional angina (Acute) - VTE Risk Labs: VTE Related Lab Results Hgb 8.3 g/dL (14.1-18.0) L 08/24/18 06:30 Hct 29.0 % (42.0-52.0) L 08/24/18 06:30 Plt Count 247 K/mm3 (142-424) 08/24/18 06:30 BUN 26 mg/dL (7-18) H 08/23/18 11:55 Creatinine 1.77 mg/dL (0.70-1.30) H 08/23/18 11:55 Estimated Creat Clear 52 mL/min (50-200) 08/23/18 11:55 VTE Score: 5 VTE Risk Level: Low Risk Clinical Trial Participant: No - Prophylaxis VTE Prophylaxis Ordered?: Yes Types of VTE Prophylaxis: TEDS Knee High Location of Applied Device: Refused
--- NOTE | 2018-08-24 09:29 | History & Physical Report ---
*Admission Date: 08/23/18 *Chief complaint: chest pain *History of present illness: this wm has over the last few days had ant chest pain assoc with sob with the least bit of exertion- he has known heart disease and diabetes- pt was seen in the pcp office and sent to the ed for eval-or a couple of weeks he gets chest pain, dizziness, and shortness of breath with very little exertion. It goes away with rest. Currently pain-free. Got short of breath walking in here, that is going away as he lays here. Prior history of coronary artery disease, coronary bypass surgery, stent placement. 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 Last intervention was within the last year. The patient does not know whether he has a diagnosis of congestive heart failure. No leg swelling. pt was admitted for eval and felt to be unstable angina [facility] History I have reviewed the patient's past medical history: Yes Medical History: Reports:: Cancer, Congestive Heart Failure, Coronary Artery Disease, Diabetes Mellitus Type 2, Gastroesophageal Reflux Disease(GERD), Hyperlipidemia, Hypertension, Kidney Stones, Myocardial Infarction Denies:: Diabetes Mellitus Type 1, Internal Pacemaker, MRSA, Seizures Have you ever received a pneumonia vaccine?: Yes Have you received a flu vaccine this season?: Yes Other Medical History: Reports: Anemia, Arthritis Other Surgeries: Yes: Angioplasty, CABG, Cancer Surgery, Cardiac Catheterization, Cardiac Surgery, Colonoscopy, Hernia Repair. No: Pacemaker Amputation: No Fractures: No - *Social History Educational Level: Completed High School Smoking Status: Former smoker Tobacco Type: cigarettes Alcohol Intake: never Alcohol Intake Frequency:: other Substance Use Type: denies use Occupational Status: retired Housing: house Household Members: spouse Travel in the last 8 weeks: None - Psychiatric History Expresses thoughts of harming self/others: None Suicide Plan Description: No Plan *Family Hx:: Heart Attack, Diabetes Review of Systems - Review of Systems Review of systems:: pertinent systems reviewed and negative unless documented below - Constitutional Reports lack of energy, Reports weakness, Denies fever(s) - Eyes Denies change in vision - ENT Denies sore throat - *Cardiovascular Reports chest pain, Reports chest pain at rest, Reports chest pain with activity, Reports shortness of breath with activity - *Respiratory Denies cough, Denies coughing up blood - *Gastrointestinal Denies abdominal pain - *Genitourinary Denies blood in urine - *Musculoskeletal Denies joint pain - Integumentary/Breasts Denies rash - *Neurologic Denies seizure-like activity - Psychiatric Denies anxiety Meds Home Medications Medication Instructions Recorded Confirmed Type aspirin 81 mg tablet,delayed 81 mg PO DAILY 08/05/17 08/23/18 History release Omeprazole [Omeprazole 20mg 20 mg PO BID #60 capsule. 01/18/18 08/23/18 Rx Capsule] clopidogrel 75 mg tablet 75 mg PO DAILY tab 02/15/18 08/23/18 History gemfibrozil 600 mg tablet 600 mg PO BID #180 tab 03/06/18 08/23/18 Rx rosuvastatin 20 mg tablet 20 mg PO DAILY 03/20/18 08/23/18 History tamsulosin 0.4 mg capsule 0.4 mg PO DAILY #90 cap 04/26/18 08/23/18 Rx spironolactone 50 mg tablet 50 mg PO DAILY #90 tab 05/26/18 08/23/18 Rx furosemide 40 mg tablet 40 mg PO DAILY #90 tab 06/14/18 08/23/18 Rx metoprolol tartrate 25 mg tablet 25 mg PO QHS #90 tab 06/26/18 08/23/18 Rx gabapentin 600 mg tablet 600 mg PO TID #270 tab 06/30/18 08/23/18 Rx isosorbide mononitrate ER 60 mg 60 mg PO DAILY #90 tab 06/30/18 08/23/18 Rx tablet,extended release 24 hr Ferrous Gluconate [Ferrous 324 mg PO BID 08/23/18 08/23/18 History Gluconate 324mg Tab] Linagliptin [Tradjenta 5mg tablet] 5 mg PO DAILY 08/23/18 08/23/18 History Lisinopril [Prinivil 5mg Tablet] 5 mg PO DAILY 08/23/18 08/23/18 History glipiZIDE [Glucotrol] 5 mg PO BID 08/23/18 08/23/18 History insulin glargine (U- 100) 100 50 unit SUB-Q BID ml 08/23/18 08/23/18 History unit/mL subcutaneous solution insulin lispro (U- 100) 100 100 unit SQ BID ml 08/23/18 08/23/18 History unit/mL subcutaneous cartridge Allergies Allergy/AdvReac Type Severity Reaction Status Date / Time oxycodone Allergy Intermediate I-RASH Verified 08/23/18 11:25 Sulfa (Sulfonamide Allergy Unknown Verified 08/23/18 11:25 Antibiotics) Exam Vital signs and Labs for Last 24 Hours: Temp Pulse Resp BP Pulse Ox 97.2 F L 70 18 133/67 91 L 08/24/18 08:00 08/24/18 08:00 08/24/18 08:00 08/24/18 08:00 08/24/18 08:00 Laboratory Results - last 24 hr 08/23/18 11:55: WBC 5.4, RBC 3.13 L, Hgb 8.3 L, Hct 29.5 L, MCV 94.3 H, MCH 26.5 L, MCHC 28.1 L, RDW 15.9, Plt Count 282, MPV 7.4, Neut % (Auto) 66.8, Lymph % (Auto) 21.6, [place] % (Auto) 7.3, Eos % (Auto) 3.7, Baso % (Auto) 0.5, Neut # (Auto) 3.6, Lymph # (Auto) 1.2, [place] # (Auto) 0.4, Eos # (Auto) 0.2, Baso # (Auto) 0.0 08/23/18 11:55: Sodium 142, Potassium 4.5, Chloride 107, Carbon Dioxide 24, Anion Gap 15.5 H, BUN 26 H, Creatinine 1.77 H, Estimated Creat Clear 52, Estimated GFR 38 L, Est GFR ( Amer) 45 L, Glucose 220 H, Calcium 8.6, Troponin I 0.02 08/23/18 16:40: Blood Type A Positive, Antibody Screen Negative, Crossmatch (AHG) See Detail 08/23/18 17:13: POC Glucose 209 H 08/23/18 18:43: Troponin I < 0.02 08/23/18 20:28: POC Glucose 313 H* 08/23/18 21:39: Troponin I < 0.02 08/23/18 23:59: Hgb 8.6 L, Hct 30.6 L 08/24/18 06:30: WBC 5.2, RBC 3.13 L, Hgb 8.3 L, Hct 29.0 L, MCV 92.6, MCH 26.4 L , MCHC 28.5 L, RDW 16.1, Plt Count 247, MPV 8.0, Neut % (Auto) 69.7, Lymph % (Auto) 20.4, [place] % (Auto) 6.1, Eos % (Auto) 3.3, Baso % (Auto) 0.4, Neut # (Auto) 3.7, Lymph # (Auto) 1.1, [place] # (Auto) 0.3, Eos # (Auto) 0.2, Baso # (Auto) 0.0 08/24/18 06:34: POC Glucose 244 H I & O for Last 24 hours: Intake & Output 08/21/18 08/22/18 08/23/18 08/24/18 11:59 11:59 11:59 11:59 Intake Total 970 / 970 Balance 970 / 970 Weight 218 lb 5 oz - Constitutional no acute distress, obese - *Routine HEENT Exam Head: Present: normocephalic Eye: Present: EOMI, PERRL ENT: Present: mucous membranes dry - *Routine Neck Exam Present: supple. Absent: JVD - *Routine Respiratory Exam Present: decreased breath sounds - *Routine Cardiovascular Exam Present: RRR, murmur, S4 - *Routine Abdominal Exam Present: soft - *Routine Extremities Exam Present: edema. Absent: calf tenderness - *Routine Skin Exam Present: intact - *Routine Neurological Exam Present: alert, oriented X3, CN II-XII intact - Routine Psychiatric Exam Present: normal affect Assessment and Plan (1) Unstable angina Current visit: Yes Status: Acute Category: Medical Code(s): I20.0 - Unstable angina (2) Obesity (BMI 30.0-34.9) Current visit: Yes Status: Acute Category: Medical Code(s): E66.9 - Obesity, unspecified (3) Anemia Current visit: Yes Status: Acute Qualifiers: Anemia type: unspecified type Qualified Code(s): D64.9 - Anemia, unspecified Category: Medical Code(s): D64.9 - Anemia, unspecified (4) IDDM (insulin dependent diabetes mellitus) Current visit: No Status: Chronic Category: Medical Code(s): E11.9 - Type 2 diabetes mellitus without complications; Z79.4 - medical social consultant (current) 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 (5) Hx of CABG Current visit: Yes Status: Acute Category: Surgical Code(s): Z95.1 - Presence of aortocoronary bypass graft
--- NOTE | 2018-08-24 10:04 | Consult Report ---
History of Present Illness Consult date: 08/24/18 Requesting physician: Duncan Heard Consult reason: chest pain Chief complaint: SOA, chest pain Additional Medical History:: 1. DM, treated for many years 2. CAD A. S/P CABG and stents B. History of CHF C. Cardiac cath, 09/2014, ANGIOGRAPHIC RESULTS: 1. The left main artery is normal 2. The left anterior descending artery has mild to moderate mid vessel atheromatous plaque. There is competitive flow from the left internal mammary artery 3. The circumflex artery is occluded at mid vessel 4. The right coronary artery is a dominant vessel and has a stent in the pr oximal segment which is widely patent. Throughout the mid portion the vessel has moderate nonflow limiting atheromatous plaque. There is competitive flow from a large vein graft tied into the posterior descending artery 5. The GRIFFIN ventriculogram reveals normal ejection fraction estimated at 65% 6. The left ventricular end-diastolic pressure is elevated at 20 mmHg 7. The saphenous vein graft to the circumflex artery is widely patent 8. The saphenous vein graft to the posterior descending artery is widely patent 9. The left internal mammary artery to the LAD is widely patent 10. The left renal artery is singular and normal 11. The right renal artery is singular and normal IMPRESSION: 1. Coronary artery disease as described above. 2. Adequate revascularization with widely patent saphenous vein graft to the PDA circumflex artery and a patent CRESPO graft to the LAD 3. Normal renal arteries PLAN: 1. Risk factor modification. 2. LDL less than 70 3. Better control of hypertension 3. Hypertension 4. Obesity 5. Recurrent anemia A. history of recurrent blood transfusions B. UGI bleed, 12/2017, with EGD showing linear tear at base of esophagus without active bleeding 6. PAD A. Right external iliac artery stent with BMS, 01/2018 B. Moderate disease of right SFA, Nito's canal and popliteal arteries. Medical therapy History of present illness: this wm has over the last few days had ant chest pain assoc with sob with the least bit of exertion- he has known heart disease and diabetes- pt was seen in the pcp office and sent to the ed for eval-or a couple of weeks he gets chest pain, dizziness, and shortness of breath with very little exertion. It goes away with rest. Currently pain-free. Got short of breath walking in here, that is going away as he lays here. Prior history of coronary artery disease, coronary bypass surgery, stent placement. 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 Last intervention was within the last year (peripheral stenting). The patient does not know whether he has a diagnosis of congestive heart failure. No leg swelling. pt was admitted for eval and felt to be unstable angina The above per Dr. Heard Last cardiac cath was in early 2014 with patent bypass grafts noted. Stress test 11/2017 showed no ischemia with normal LVEF. Pt with exertional SOA and chest pain that resolves with rest over the last month or two. EKG is sinus with LBBB. [facility] History Medical History: Reports:: Cancer, Congestive Heart Failure, Coronary Artery Disease, Diabetes Mellitus Type 2, Gastroesophageal Reflux Disease(GERD), Hyperlipidemia, Hypertension, Kidney Stones, Myocardial Infarction Denies:: Diabetes Mellitus Type 1, Internal Pacemaker, MRSA, Seizures Have you ever received a pneumonia vaccine?: Yes Have you received a flu vaccine this season?: Yes Other Medical History: Reports: Anemia, Arthritis Other Surgeries: Yes: Angioplasty, CABG, Cancer Surgery, Cardiac Catheterization, Cardiac Surgery, Colonoscopy, Hernia Repair. No: Pacemaker Amputation: No Fractures: No - *Social History Educational Level: Completed High School Smoking Status: Former smoker Tobacco Type: cigarettes Alcohol Intake: never Alcohol Intake Frequency:: other Substance Use Type: denies use Occupational Status: retired Housing: house Household Members: spouse Travel in the last 8 weeks: None - Psychiatric History Expresses thoughts of harming self/others: None Suicide Plan Description: No Plan *Family Hx:: Heart Attack, Diabetes Meds Home Medications Medication Instructions Recorded Confirmed Type aspirin 81 mg tablet,delayed 81 mg PO DAILY 08/05/17 08/23/18 History release Omeprazole [Omeprazole 20mg 20 mg PO BID #60 capsule. 01/18/18 08/23/18 Rx Capsule] clopidogrel 75 mg tablet 75 mg PO DAILY tab 02/15/18 08/23/18 History gemfibrozil 600 mg tablet 600 mg PO BID #180 tab 03/06/18 08/23/18 Rx rosuvastatin 20 mg tablet 20 mg PO DAILY 03/20/18 08/23/18 History tamsulosin 0.4 mg capsule 0.4 mg PO DAILY #90 cap 04/26/18 08/23/18 Rx spironolactone 50 mg tablet 50 mg PO DAILY #90 tab 05/26/18 08/23/18 Rx furosemide 40 mg tablet 40 mg PO DAILY #90 tab 06/14/18 08/23/18 Rx gabapentin 600 mg tablet 600 mg PO TID #270 tab 06/30/18 08/23/18 Rx isosorbide mononitrate ER 60 mg 60 mg PO DAILY #90 tab 06/30/18 08/23/18 Rx tablet,extended release 24 hr Ferrous Gluconate [Ferrous 324 mg PO BID 08/23/18 08/23/18 History Gluconate 324mg Tab] Linagliptin [Tradjenta 5mg tablet] 5 mg PO DAILY 08/23/18 08/23/18 History Lisinopril [Prinivil 5mg Tablet] 5 mg PO DAILY 08/23/18 08/23/18 History glipiZIDE [Glucotrol] 5 mg PO BID 08/23/18 08/23/18 History insulin glargine (U- 100) 100 50 unit SUB-Q BID ml 08/23/18 08/23/18 History unit/mL subcutaneous solution insulin lispro (U- 100) 100 100 unit SQ BID ml 08/23/18 08/23/18 History unit/mL subcutaneous cartridge Metoprolol Tartrate [Lopressor 25 mg PO BID 08/24/18 08/24/18 History 25mg tablet] Allergies Allergy/AdvReac Type Severity Reaction Status Date / Time oxycodone Allergy Intermediate I-RASH Verified 08/23/18 11:25 Sulfa (Sulfonamide Allergy Unknown Verified 08/23/18 11:25 Antibiotics) Review of Systems - *Cardiovascular Reports chest pain, Reports shortness of breath, Reports shortness of breath with activity - *Respiratory Reports shortness of breath, Reports shortness of breath with activity - *Gastrointestinal Denies abdominal pain, Denies loose stools - *Genitourinary Denies blood in urine - *Musculoskeletal Reports back pain - *Neurologic Reports weakness, Denies seizure-like activity Exam Vital signs and Labs for Last 24 Hours: Temp Pulse Resp BP Pulse Ox 97.2 F L 70 18 133/67 91 L 08/24/18 08:00 08/24/18 08:00 08/24/18 08:00 08/24/18 08:00 08/24/18 08:00 Laboratory Results - last 24 hr 08/23/18 11:55: WBC 5.4, RBC 3.13 L, Hgb 8.3 L, Hct 29.5 L, MCV 94.3 H, MCH 26.5 L, MCHC 28.1 L, RDW 15.9, Plt Count 282, MPV 7.4, Neut % (Auto) 66.8, Lymph % (Auto) 21.6, [place] % (Auto) 7.3, Eos % (Auto) 3.7, Baso % (Auto) 0.5, Neut # (Auto) 3.6, Lymph # (Auto) 1.2, [place] # (Auto) 0.4, Eos # (Auto) 0.2, Baso # (Auto) 0.0 08/23/18 11:55: Sodium 142, Potassium 4.5, Chloride 107, Carbon Dioxide 24, Anion Gap 15.5 H, BUN 26 H, Creatinine 1.77 H, Estimated Creat Clear 52, Estimated GFR 38 L, Est GFR ( Amer) 45 L, Glucose 220 H, Calcium 8.6, Troponin I 0.02 08/23/18 16:40: Blood Type A Positive, Antibody Screen Negative, Crossmatch (AHG) See Detail 08/23/18 17:13: POC Glucose 209 H 08/23/18 18:43: Troponin I < 0.02 08/23/18 20:28: POC Glucose 313 H* 08/23/18 21:39: Troponin I < 0.02 08/23/18 23:59: Hgb 8.6 L, Hct 30.6 L 08/24/18 06:30: WBC 5.2, RBC 3.13 L, Hgb 8.3 L, Hct 29.0 L, MCV 92.6, MCH 26.4 L , MCHC 28.5 L, RDW 16.1, Plt Count 247, MPV 8.0, Neut % (Auto) 69.7, Lymph % (Auto) 20.4, [place] % (Auto) 6.1, Eos % (Auto) 3.3, Baso % (Auto) 0.4, Neut # (Auto) 3.7, Lymph # (Auto) 1.1, [place] # (Auto) 0.3, Eos # (Auto) 0.2, Baso # (Auto) 0.0 08/24/18 06:34: POC Glucose 244 H I & O for Last 24 hours: Intake & Output 08/21/18 08/22/18 08/23/18 08/24/18 11:59 11:59 11:59 11:59 Intake Total 970 / 970 Balance 970 / 970 Weight 218 lb 5 oz - *Routine Neck Exam Present: supple. Absent: JVD, carotid bruit - *Routine Respiratory Exam Present: CTA bilaterally. Absent: accessory muscle use, rales, rhonchi, wheezes - *Routine Cardiovascular Exam Present: RRR. Absent: murmur, gallop, rubs - *Routine Abdominal Exam Present: soft. Absent: tenderness, distended, guarding - *Routine Extremities Exam Absent: edema, calf tenderness - *Routine Neurological Exam Present: alert, oriented X3, moving all extremities Assessment and Plan (1) Unstable angina Current visit: Yes Status: Acute Category: Medical Code(s): I20.0 - Unstable angina (2) Obesity (BMI 30.0-34.9) Current visit: Yes Status: Acute Category: Medical Code(s): E66.9 - Obesity, unspecified (3) Anemia Current visit: Yes Status: Acute Qualifiers: Anemia type: unspecified type Qualified Code(s): D64.9 - Anemia, unspecified Category: Medical Code(s): D64.9 - Anemia, unspecified (4) IDDM (insulin dependent diabetes mellitus) Current visit: No Status: Chronic Category: Medical Code(s): E11.9 - Type 2 diabetes mellitus without complications; 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 Recommend transfusing additional 2 units PRBC's to keep Hgb >10 with known CAD/CABG 2. Plan to proceed with coronary angiogram tomorrow. 3. Continue ASA, plavix, metoprolol and isosorbide
[2018-08-24 10:47] LABS: Bilirubin,Direct 0.1 mg/dL (0.0-0.2); Bilirubin,Indirect 0.3 mg/dL (0.0-0.9); Bilirubin,Total 0.4 mg/dL (0.2-1.0)
[2018-08-24 11:22] LABS: T4 (Thyroxine) 5.6 ug/dl (4.7-13.3); Thyroid Stimulating Hormone 1.97 uIU/ml (0.358-3.740)
--- NOTE | 2018-08-24 16:55 | Cardiology Report ---
PROCEDURE: 2-D M-mode and color Doppler study INDICATIONS FOR THE TEST: Chest pain COPD Heart Murmur Tobacco SmokingEX Palpitations Fatigue Syncope Edema HypertensionXDiabetes MellitusX Rheumatic Fever SOBXDOEXObesityXHyperlipidemiaX Family History HD Additional History CAD,CABG,ANEMIA GIVEN DEFINITY PATIENT INFORMATION HEIGHT: 67 WEIGHT:218 GENDER: Male B/P:133/67 2-D/M-MODE INTERPRETATION: 2-D MEASUREMENTS OBSERVED VALUES IN CMS Right Ventricular Dimension (RVDd) 3.1 Interventricular Septum (Thickness)(IVsd) 1.4 Left Ventricular Internal Dimensions(LVIDd) 5.4 Left Ventricular Posterior Wall (Thickness)(LVPWd) 1.4 Aortic Root 3.7 Aortic Cusp Separation 1.9 Left Atrial Dimensions (LAD) 3.4 2D 1. Left atrium is mildly enlarged, left ventricle is normal size, mild concentric left ventricular hypertrophy, visually estimated ejection fraction approximately 45%, Definity contrast was utilized to delineate endocardial surfaces, there is marked hypokinesis involving mid to distal septum, apex and anteroapical wall. 2. The right atrium and right ventricle are mildly enlarged with normal contractility. 3. The aortic valve is minimally thickened and fibrosed leaflet continue to display mobility. 4. The mitral and tricuspid valve leaflets are minimally thickened. 5. The pulmonic valve is poorly present. 6. No significant pericardial effusion noted. DOPPLER INTERROGATION: Doppler interrogation of the aortic, mitral and tricuspid valvular presence of mild mitral and tricuspid regurgitation, tricuspid regurgitation jet velocity is inadequate for calculation of the right ventricular systolic pressure, Doppler evidence of impaired relaxation seen. CONCLUSION: 1. Mildly enlarged left atrium, normal left ventricular size, mild concentric left ventricular hypertrophy, visually estimated ejection fraction approximately 45%, Definity contrast was utilized to delineate endocardial surfaces, there is marked hypokinesis involving the mid to distal septum, apex and anteroapical wall. 2. Mildly enlarged right ventricle with normal contractility. 3. Mild mitral and tricuspid regurgitation 4. No significant pericardial effusion noted.
[2018-08-24 19:05] LABS: Hematocrit 34.5 % (42.0-52.0)
--- NOTE | 2018-08-25 16:09 | Progress Note ---
Subjective Date: 08/25/18 Time: 16:07 Principal diagnosis: anemia, angina Interval history: Cardiac cath today showed adequate revascularization of coronary arteries. Symptoms of chest pain and SOA related to symptomatic anemia. Exam Vital signs and Labs for Last 24 Hours: Temp Pulse Resp BP Pulse Ox 98.7 F 54 L 20 133/54 L 99 08/25/18 14:20 08/25/18 14:50 08/25/18 14:50 08/25/18 14:50 08/25/18 14:50 Laboratory Results - last 24 hr 08/23/18 16:40: Crossmatch (AHG) See Detail 08/24/18 16:25: POC Glucose 425 H* 08/24/18 18:20: Hgb 10.0 L D, Hct 34.5 L 08/24/18 20:52: POC Glucose 484 H* 08/25/18 05:43: POC Glucose 353 H* 08/25/18 11:58: POC Glucose 264 H I & O for Last 24 hours: Intake & Output 08/23/18 08/24/18 08/25/18 08/26/18 11:59 11:59 11:59 11:59 Intake Total 970 / 970 960 / 960 0 / 0 Balance 970 / 970 960 / 960 0 / 0 Weight 218 lb 5 oz 214 lb 1 oz 214 lb 0.996 oz - *Routine HEENT Exam Head: Present: normocephalic Eye: Present: EOMI, PERRL ENT: Present: mucous membranes moist - *Routine Neck Exam Present: supple. Absent: JVD, carotid bruit - *Routine Respiratory Exam Present: CTA bilaterally. Absent: accessory muscle use, rales, rhonchi, wheezes - *Routine Cardiovascular Exam Present: RRR. Absent: murmur, gallop, rubs - *Routine Abdominal Exam Present: soft. Absent: tenderness, distended, guarding - *Routine Extremities Exam Absent: edema, calf tenderness Progress Note: A&P (1) Unstable angina Status: Acute Current Visit: Yes (2) Obesity (BMI 30.0-34.9) Status: Acute Current Visit: Yes (3) Anemia Status: Acute Current Visit: Yes (4) IDDM (insulin dependent diabetes mellitus) Status: Chronic Current Visit: No (5) Hx of CABG Status: Acute Current Visit: Yes Assessment and Plan for All Diagnoses:: Pt could be discharged home on home meds with follow up in 1-2 wks in our office. Home meds: ASA 81 mg daily plavix 75 mg daily gemfibrozil 600 mg BID crestor 20 mg daily spironolactone 50 mg daily furosemide 40 mg daily imdur 60 mg daily lisinopril 5 mg daily lopressor 25 mg BID
--- NOTE | 2018-08-25 19:31 | Progress Note ---
Internal Medicine - PN: Subj *Date: 08/25/18 *Time: 08:00 Interval history: no chest pain at this time- cath today Exam Vital signs and Labs for Last 24 Hours: Temp Pulse Resp BP Pulse Ox 98.7 F 54 L 18 140/50 L 100 08/25/18 14:20 08/25/18 16:50 08/25/18 16:50 08/25/18 16:50 08/25/18 16:50 Laboratory Results - last 24 hr 08/24/18 20:52: POC Glucose 484 H* 08/25/18 05:43: POC Glucose 353 H* 08/25/18 11:58: POC Glucose 264 H 08/25/18 16:46: POC Glucose 230 H I & O for Last 24 hours: Intake & Output 08/23/18 08/24/18 08/25/18 08/26/18 11:59 11:59 11:59 11:59 Intake Total 970 / 970 960 / 960 240 / 240 Balance 970 / 970 960 / 960 240 / 240 Weight 218 lb 5 oz 214 lb 1 oz 214 lb 0.996 oz - Constitutional no acute distress, obese - *Routine HEENT Exam Head: Present: normocephalic Eye: Present: EOMI, PERRL ENT: Present: mucous membranes dry - *Routine Neck Exam Present: supple. Absent: JVD - *Routine Respiratory Exam Present: CTA bilaterally - *Routine Cardiovascular Exam Present: RRR, murmur - *Routine Abdominal Exam Present: soft - *Routine Extremities Exam Present: edema. Absent: calf tenderness - *Routine Skin Exam Present: intact - *Routine Neurological Exam Present: alert, oriented X3, CN II-XII intact - Routine Psychiatric Exam Present: normal affect Assessment and Plan (1) Unstable angina Current visit: Yes Status: Acute Category: Medical Code(s): I20.0 - Unstable angina (2) Obesity (BMI 30.0-34.9) Current visit: Yes Status: Acute Category: Medical Code(s): E66.9 - Obesity, unspecified (3) Anemia Current visit: Yes Status: Acute Qualifiers: Anemia type: unspecified type Qualified Code(s): D64.9 - Anemia, unspecified Category: Medical Code(s): D64.9 - Anemia, unspecified (4) IDDM (insulin dependent diabetes mellitus) Current visit: No Status: Chronic Category: Medical Code(s): E11.9 - Type 2 diabetes mellitus without complications; 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
[2018-08-26 06:56] LABS: Basophils % 0.8 % (0.1-2.0); Eosinophils # 0.2 K/mm3 (0.0-0.4); Eosinophils % 3.7 % (0.1-12.0); Hematocrit 37.9 % (42.0-52.0); Hemoglobin 10.7 g/dL (14.1-18.0); Lymphocytes % 18.8 % (10-50); Mean Corpuscular HGB Conc 28.2 g/dL (31.8-35.4); Mean Corpuscular Hemoglobin 26.7 pg (27.0-31.2); Mean Corpuscular Volume 94.8 fl (80-94); Mean Platelet Volume 8.4 fl (7.4-10.4); Monocytes # 0.3 K/mm3 (0.1-1.0); Monocytes % 5.3 % (1.7-9.3); Neutrophils # 3.9 K/mm3 (1.8-7.8); Neutrophils % 71.4 % (37.0-80.0); Platelet Count 208 K/mm3 (142-424); Red Cell Distribution Width 15.8 % (11.5-17.5); White Blood Count 5.5 K/mm3 (4.8-10.8)
[2018-08-26 07:09] LABS: Anion Gap 14.5 mEq/L (5-15); Calcium 8.8 mg/dL (8.5-10.1); Potassium 5.5 mmoL/L (3.5-5.1)
--- NOTE | 2018-08-26 11:00 | Discharge Summary ---
General - General Admission date:: 08/23/18 Discharge date: 08/26/18 HPI HPI: this wm has over the last few days had ant chest pain assoc with sob with the least bit of exertion- he has known heart disease and diabetes- pt was seen in the pcp office and sent to the ed for eval-or a couple of weeks he gets chest pain, dizziness, and shortness of breath with very little exertion. It goes away with rest. Currently pain-free. Got short of breath walking in here, that is going away as he lays here. Prior history of coronary artery disease, coronary bypass surgery, stent placement. Digital Advisor is Dr. Aly. Last intervention was within the last year. The patient does not know whether he has a diagnosis of congestive heart failure. No leg swelling. pt was admitted for eval and felt to be unstable angina Hospital Course Hospital Course: pt was admitted and was seen by ash Morse, treated for many years 2. CAD A. S/P CABG and stents B. History of CHF C. Cardiac cath, 09/2014, ANGIOGRAPHIC RESULTS: 1. The left main artery is normal 2. The left anterior descending artery has mild to moderate mid vessel atheromatous plaque. There is competitive flow from the left internal mammary artery 3. The circumflex artery is occluded at mid vessel 4. The right coronary artery is a dominant vessel and has a stent in the proximal segment which is widely patent. Throughout the mid portion the vessel has moderate nonflow limiting atheromatous plaque. There is competitive flow from a large vein graft tied into the posterior descending artery 5. The GRIFFIN ventriculogram reveals normal ejection fraction estimated at 65% 6. The left ventricular end-diastolic pressure is elevated at 20 mmHg 7. The saphenous vein graft to the circumflex artery is widely patent 8. The saphenous vein graft to the posterior descending artery is widely patent 9. The left internal mammary artery to the LAD is widely patent 10. The left renal artery is singular and normal 11. The right renal artery is singular and normal IMPRESSION: 1. Coronary artery disease as described above. 2. Adequate revascularization with widely patent saphenous vein graft to the PDA circumflex artery and a patent CRESPO graft to the LAD 3. Normal renal arteries PLAN: Risk factor modification. 2. LDL less than 70 3. Better control of hypertension 3. Hypertension 4. Obesity 5. Recurrent anemia A. history of recurrent blood transfusions B. UGI bleed, 12/2017, with EGD showing linear tear at base of esophagus without active bleeding 6. PAD A. Right external iliac artery stent with BMS, 01/2018 B. Moderate disease of right SFA, Nito's canal and popliteal arteries. Medical therapy History of present illness: this wm has over the last few days had ant chest pain assoc with sob with the least bit of exertion- he has known heart disease and diabetes- pt was seen in the pcp office and sent to the ed for eval-or a couple of weeks he gets chest pain, dizziness, and shortness of breath with very little exertion. It goes away with rest. Currently pain-free. Got short of breath walking in here, that is going away as he lays here. Prior history of coronary artery disease, coronary bypass surgery, stent placement. Digital Advisor is Dr. Aly. Last intervention was within the last year (peripheral stenting). The patient does not know whether he has a diagnosis of congestive heart failure. No leg swelling. pt was admitted for eval and felt to be unstable angina The above per Dr. Heard Last cardiac cath was in early 2014 with patent bypass grafts noted. Stress test 11/2017 showed no ischemia with normal LVEF. Pt with exertional SOA and chest pain that resolves with rest over the last month or two. EKG is sinus with LBBB. pt did better after transfusion and had card cathhe left main artery normal 2. The left anterior descending artery has proximal 30% stenoses and then occluded at mid segment. There is evidence of competitive flow from the left internal mammary artery 3. The circumflex artery gives rise to a small first obtuse marginal artery and then occluded after a very small second obtuse marginal artery. 4. The right coronary artery is a dominant vessel and has proximal 30% stenoses. After the RV marginal there is a 90% stenosis and the right coronary arteries and subtotally occluded 5. The GRIFFIN ventriculogram reveals preserved 50% 6. The left ventricular end-diastolic pressure 15 mmHg The left internal mammary artery is a widely patent graft onto a moderate-sized LAD. Distal to the anastomosis the LAD has 40-50% stenoses The saphenous vein graft to the posterior descending artery off the right coronary artery is a widely patent graft free of significant stenosis. The large posterior descending artery then backfills a large posterior lateral branch The saphenous vein graft to the obtuse marginal artery is widely patent. The obtuse marginal artery is moderate to large vessel and has 40-50% diffuse stenoses IMPRESSION: Adequate coronary artery revascularization with 3 widely patent grafts as described above Preserved ejection fraction Normal to mildly elevated LVEDP PLAN: 1. Continue medical management 2. Patient's anemia most likely stems from symptomatic anemia pt doing better this am and will be d/c with close follow up Objective Vital signs: Temp Pulse Resp BP Pulse Ox 97.9 F 77 18 155/54 H 95 08/26/18 08:00 08/26/18 08:11 08/26/18 08:00 08/26/18 08:00 08/26/18 08:00 no acute distress, obese - *Routine HEENT Exam Head: Present: normocephalic Eye: Present: EOMI, PERRL ENT: Present: mucous membranes dry - *Routine Neck Exam Absent: JVD - *Routine Respiratory Exam Present: CTA bilaterally - *Routine Cardiovascular Exam Present: RRR, murmur, S4 - *Routine Abdominal Exam Present: soft. Absent: tenderness - *Routine Extremities Exam Present: edema. Absent: calf tenderness - *Routine Skin Exam Present: intact - *Routine Neurological Exam Present: alert, oriented X3, CN II-XII intact - Routine Psychiatric Exam Present: normal affect Results Labs on day of discharge: Labs from last 24 hours 08/26/18 08/26/18 08/26/18 06:42 06:42 06:23 WBC 5.5 RBC 4.00 L D Hgb 10.7 L Hct 37.9 L MCV 94.8 H MCH 26.7 L MCHC 28.2 L RDW 15.8 Plt Count 208 MPV 8.4 Neut % (Auto) 71.4 Lymph % (Auto) 18.8 [place] % (Auto) 5.3 Eos % (Auto) 3.7 Baso % (Auto) 0.8 Neut # (Auto) 3.9 Lymph # (Auto) 1.0 [place] # (Auto) 0.3 Eos # (Auto) 0.2 Baso # (Auto) 0.0 Sodium 138 Potassium 5.5 H D Chloride 103 Carbon Dioxide 26 Anion Gap 14.5 BUN 25 H Creatinine 1.57 H Estimated Creat Clear 55 Estimated GFR 43 L Est GFR ( Amer) 52 L Glucose 373 H POC Glucose 357 H* Calcium 8.8 08/25/18 08/25/18 08/25/18 20:46 16:46 11:58 WBC RBC Hgb Hct MCV MCH MCHC RDW Plt Count MPV Neut % (Auto) Lymph % (Auto) [place] % (Auto) Eos % (Auto) Baso % (Auto) Neut # (Auto) Lymph # (Auto) [place] # (Auto) Eos # (Auto) Baso # (Auto) Sodium Potassium Chloride Carbon Dioxide Anion Gap BUN Creatinine Estimated Creat Clear Estimated GFR Est GFR ( Amer) Glucose POC Glucose 434 H* 230 H 264 H Calcium DS: Diagnosis - Discharge Diagnosis (1) Unstable angina Status: Acute (2) Obesity (BMI 30.0-34.9) Status: Acute (3) Anemia Status: Acute (4) IDDM (insulin dependent diabetes mellitus) Status: Chronic (5) Hx of CABG Status: Acute (6) Left bundle branch block (LBBB) Status: Chronic (7) Hyperkalemia Status: Acute Discharge Plan - Patient Discharge Instructions ACTIVITY: Continue current activity DIET: continue same diet Patient Instructions: Anemia, DI for Angina, DI for Blood Transfusion, DI for Surgical Site Infection - Follow up Plan Disposition: Home, Self-Fdc Medications: Home Medications Medication Instructions Recorded Confirmed Type aspirin 81 mg tablet,delayed 81 mg PO DAILY 08/05/17 08/23/18 History release Omeprazole [Omeprazole 20mg 20 mg PO BID #60 capsule. 01/18/18 08/23/18 Rx Capsule] clopidogrel 75 mg tablet 75 mg PO DAILY tab 02/15/18 08/23/18 History rosuvastatin 20 mg tablet 20 mg PO DAILY 03/20/18 08/23/18 History tamsulosin 0.4 mg capsule 0.4 mg PO DAILY #90 cap 04/26/18 08/23/18 Rx spironolactone 50 mg tablet 50 mg PO DAILY #90 tab 05/26/18 08/23/18 Rx furosemide 40 mg tablet 40 mg PO DAILY #90 tab 06/14/18 08/23/18 Rx gabapentin 600 mg tablet 600 mg PO TID #270 tab 06/30/18 08/23/18 Rx isosorbide mononitrate ER 60 mg 60 mg PO DAILY #90 tab 06/30/18 08/23/18 Rx tablet,extended release 24 hr Ferrous Gluconate [Ferrous 324 mg PO BID 08/23/18 08/23/18 History Gluconate 324mg Tab] Linagliptin [Tradjenta 5mg tablet] 5 mg PO DAILY 08/23/18 08/23/18 History Lisinopril [Prinivil 5mg Tablet] 5 mg PO DAILY 08/23/18 08/23/18 History glipiZIDE [Glucotrol] 5 mg PO BID 08/23/18 08/23/18 History insulin glargine (U- 100) 100 50 unit SUB-Q BID ml 08/23/18 08/23/18 History unit/mL subcutaneous solution insulin lispro (U- 100) 100 100 unit SQ BID ml 08/23/18 08/23/18 History unit/mL subcutaneous cartridge Metoprolol Tartrate [Lopressor 25 mg PO BID 08/24/18 08/24/18 History 25mg tablet] Gemfibrozil 600 mg PO BID 08/25/18 08/25/18 History Prescriptions/Medication Reconciliation: New Gemfibrozil [Lopid 600mg Tablet] 600 mg PO BID tablet Metoprolol Tartrate [Lopressor 25mg tablet] 25 mg PO HS tablet Continue tamsulosin 0.4 mg capsule 0.4 mg PO DAILY #90 cap furosemide 40 mg tablet 40 mg PO DAILY #90 tab insulin lispro (U- 100) 100 unit/mL subcutaneous cartridge 100 unit SQ BID ml aspirin 81 mg tablet,delayed release 81 mg PO DAILY clopidogrel 75 mg tablet 75 mg PO DAILY tab rosuvastatin 20 mg tablet 20 mg PO DAILY spironolactone 50 mg tablet 50 mg PO DAILY #90 tab gabapentin 600 mg tablet 600 mg PO TID #270 tab isosorbide mononitrate ER 60 mg tablet,extended release 24 hr 60 mg PO DAILY #90 tab insulin glargine (U- 100) 100 unit/mL subcutaneous solution 50 unit SUB-Q BID ml Omeprazole [Omeprazole 20mg Capsule] 20 mg PO BID #60 capsule. Linagliptin [Tradjenta 5mg tablet] 5 mg PO DAILY glipiZIDE [Glucotrol] 5 mg PO BID Ferrous Gluconate [Ferrous Gluconate 324mg Tab] 324 mg PO BID Lisinopril [Prinivil 5mg Tablet] 5 mg PO DAILY Metoprolol Tartrate [Lopressor 25mg tablet] 25 mg PO BID Gemfibrozil 600 mg PO BID
== END 2018-08-26 12:20 | disposition home or self-care (01) | DRG 287 ==
LOC: ER 12:02 → 2ND 13:52
PROVIDERS: ADMIT Emergency Medicine; ATTEND Emergency Medicine
CPT/HCPCS: 36415; 71020; 71046; 80048; 80076; 82272; 82962; 83880; 84436; 84443; 84484; 85014; 85018; 85025; 86850; 93005; 93306; 93459; 94761; 99285; G0328; J1644; P9016; Q9967

== ENCOUNTER 2018-10-04 23:12 | Inpatient (IN) ==
[2018-10-04 23:44] LABS: Basophils % 0.5 % (0.1-2.0); Eosinophils # 0.2 K/mm3 (0.0-0.4); Eosinophils % 2.5 % (0.1-12.0); Hematocrit 29.8 % (42.0-52.0); Lymphocytes # 1.2 K/mm3 (0.7-4.5); Lymphocytes % 12.5 % (10-50); Mean Corpuscular HGB Conc 30.1 g/dL (31.8-35.4); Mean Corpuscular Hemoglobin 28.3 pg (27.0-31.2); Mean Corpuscular Volume 94.1 fl (80-94); Mean Platelet Volume 7.4 fl (7.4-10.4); Monocytes # 0.4 K/mm3 (0.1-1.0); Monocytes % 4.7 % (1.7-9.3); Neutrophils # 7.5 K/mm3 (1.8-7.8); Neutrophils % 79.8 % (37.0-80.0); Platelet Count 351 K/mm3 (142-424); Red Blood Count 3.17 M/mm3 (4.60-6.20); Red Cell Distribution Width 16.5 % (11.5-17.5); White Blood Count 9.4 K/mm3 (4.8-10.8)
[2018-10-04 23:57] LABS: Albumin/Globulin Ratio 0.9 (1.1-1.8); Anion Gap 15.6 mEq/L (5-15); Bilirubin,Total 0.3 mg/dL (0.2-1.0); Calcium 8.3 mg/dL (8.5-10.1); Globulin 3.4 gm/dl (1.3-3.2); Total Protein,Serum 6.4 gm/dL (6.4-8.2)
[2018-10-05 00:07] LABS: Potassium 6.6 mmoL/L (3.5-5.1)
--- NOTE | 2018-10-05 00:09 | Emergency Department Note ---
ED Disposition Clinical Impression: Lower gastrointestinal hemorrhage, Renal insufficiency, Obesity (BMI 30-39.9), IDDM (insulin dependent diabetes mellitus), Hx of CABG, Hyperkalemia, Gastritis and duodenitis, Guaiac positive stools Anemia Qualifiers: Anemia type: unspecified type Qualified Code(s): D64.9 - Anemia, unspecified CAD (coronary artery disease) Qualifiers: Coronary Disease-Associated Artery/Lesion type: unspecified vessel or lesion type [place] vs. transplanted heart: [place] heart Associated angina: without angina Qualified Code(s): I25.10 - Atherosclerotic heart disease of [place] coronary artery without angina pectoris Diverticulosis Qualifiers: Diverticulosis site: diverticulosis of large intestine Diverticulosis bleeding: diverticulosis with bleeding Qualified Code(s): K57.31 - Diverticulosis of large intestine without perforation or abscess with bleeding Disposition: Admitted as Observation Condition on Discharge: Good - Critical Care Critical Care Time: No Attestation: On 10/04/18, the high probability of a clinically significant, sudden or life threatening deterioration of the following system(s) required my full and direct attention, intervention and personal management. The time I documented below is in addition to time spent performing reported procedures but includes the following listed in this critical care notation. Medical Decision Making - Medical Records Medical records reviewed: Yes: I reviewed the patient's medical records. - Bill Inquiry Pt receiving controlled substance: No Vital Signs: 10/04/18 23:13 10/04/18 23:16 10/04/18 23:46 Temperature 98.1 F 98.1 F Temperature Source Oral Oral Pulse Rate Pulse Rate [Left Radial] Respiratory Rate 18 18 Blood Pressure [Right Arm] 119/58 L 119/58 L 118/51 L Blood Pressure Mean [Right Arm] 78 78 73 Blood Pressure Source [Right Arm] Automatic Cuff Automatic Cuff Automatic Cuff Blood Pressure Position [Right Arm] Sitting Sitting Supine 02 Sat by Pulse Oximetry 97 97 Oxygen Delivery Method Room Air Room Air 10/05/18 00:43 10/05/18 00:58 10/05/18 01:30 Temperature Temperature Source Pulse Rate 84 Pulse Rate [Left Radial] 80 Respiratory Rate 18 18 Blood Pressure [Right Arm] 131/52 L 144/54 H Blood Pressure Mean [Right Arm] 78 84 Blood Pressure Source [Right Arm] Automatic Cuff Automatic Cuff Blood Pressure Position [Right Arm] Supine Supine 02 Sat by Pulse Oximetry 97 97 Oxygen Delivery Method Room Air Room Air - Lab Data Lab results reviewed: Yes: I reviewed the patient's lab results. Lab Results 10/04/18 23:34: WBC 9.4, RBC 3.17 L, Hgb 9.0 L, Hct 29.8 L, MCV 94.1 H, MCH 28.3, MCHC 30.1 L, RDW 16.5, Plt Count 351, MPV 7.4, Neut % (Auto) 79.8, Lymph % (Auto) 12.5, [place] % (Auto) 4.7, Eos % (Auto) 2.5, Baso % (Auto) 0.5, Neut # (Auto) 7.5, Lymph # (Auto) 1.2, [place] # (Auto) 0.4, Eos # (Auto) 0.2, Baso # (Auto) 0.0 10/04/18 23:34: Sodium 132 L, Potassium 6.6 H*, Chloride 100, Carbon Dioxide 23, Anion Gap 15.6 H, BUN 35 H, Creatinine 2.02 H, Estimated Creat Clear 45, Estimated GFR 32 L, Est GFR ( Amer) 39 L, Glucose 538 H*, Calcium 8.3 L, Total Bilirubin 0.3, AST 6 L, ALT 21, Alkaline Phosphatase 95, Total Protein 6.4, Albumin 3.0 L, Globulin 3.4 H, Albumin/Globulin Ratio 0.9 L 10/05/18 00:15: Potassium 6.8 H* Result diagrams: 10/04/18 23:34 10/05/18 00:15 Orders (Tests/Meds): ED MEDICATIONS Generic Name Dose Route Start Last Admin Trade Name Freq PRN Reason Stop Dose Admin Sodium Chloride 1,000 mls @ 999 mls/hr 10/04/18 23:45 10/04/18 23:45 Sod Chlor 0.9% 1000ml Bag IV 10/05/18 00:45 999 mls/hr .Q1H1M MARYAN Administration Sodium Chloride 10 ml 10/04/18 23:33 Saline Flush 10ml Syringe IV 11/03/18 23:32 NEEDED PRN Maintain IV Site Discontinued Medications Generic Name Dose Route Start Last Admin Trade Name Freq PRN Reason Stop Dose Admin Albuterol Sulfate 2.5 mg 10/05/18 00:50 10/05/18 00:57 Albuterol 0.083% 2.5mg/3ml Neb IH 10/05/18 00:51 2.5 mg ONCE ONE Administration Dextrose 50 ml 10/05/18 00:50 10/05/18 01:26 Dextrose 50% 50ml Syringe IVP 10/05/18 00:51 50 ml ONCE ONE Administration Insulin Human Lispro 5 unit 10/05/18 00:50 10/05/18 01:26 Humalog 100 Units/Ml 3ml Vial (Ssi) IV 10/05/18 00:51 5 unit ONCE ONE Administration Sodium Polystyrene Sulfonate 15 gm 10/05/18 00:50 10/05/18 01:26 Kayexalate 15gm/60ml Bottle PO 10/05/18 00:51 15 gm ONCE ONE Administration ORDERS Category Date Time Status CT abdomen pelvis wo con Stat Cat Scan 10/04/18 23:34 Ordered - ECG Data Tracing #1 Normal Sinus Rhythm: Yes Ischemic changes: non-specific ST-T wave changes ECG compared to prior tracings: there are no significant changes GI Bleed HPI - General Chief complaint: GI Bleed Stated complaint: Procedure done last week, passing blood,weakness Time Seen by Provider: 10/04/18 23:20 Mode of Arrival: Ambulatory Source of Information: Patient, Relative, Medical Record Limitations: No Limitations Description of Symptoms (Recalled from ER Triage Doc. by RN): PT states he has bloody stools 3 times today.He states it was bright red and dark red bleeding. He states he is also weak and denies other symptoms a this time. He states he had an Upper GI and Lower GI scope a week ago. - History of Present Illness HPI Narrative: recent gi procedure with gi bleeding tonight with feeling weakness - has hx of anemia and diabetes MD complaint: gross hematemesis Onset (ago): hour(s) Consistency: intermittent Severity: moderate Associated symptoms: weakness Treatments Prior to Arrival: none - Related Data Home Medications Medication Instructions Recorded Confirmed aspirin 81 mg tablet,delayed 81 mg PO DAILY 08/05/17 10/04/18 release clopidogrel 75 mg tablet 75 mg PO DAILY tab 02/15/18 10/04/18 rosuvastatin 20 mg tablet 20 mg PO DAILY 03/20/18 10/04/18 Ferrous Gluconate [Ferrous 324 mg PO BID 08/23/18 10/04/18 Gluconate 324mg Tab] Linagliptin [Tradjenta 5mg tablet] 5 mg PO DAILY 08/23/18 10/04/18 Lisinopril [Prinivil 5mg Tablet] 5 mg PO DAILY 08/23/18 10/04/18 glipiZIDE [Glucotrol] 5 mg PO BID 08/23/18 10/04/18 insulin glargine (U- 100) 100 50 unit SUB-Q BID ml 08/23/18 10/04/18 unit/mL subcutaneous solution insulin lispro (U- 100) 100 100 unit SQ BID ml 08/23/18 10/04/18 unit/mL subcutaneous cartridge Gemfibrozil [Lopid 600mg Tablet] 600 mg PO BID 09/28/18 10/04/18 Metoprolol Tartrate [Lopressor 25 mg PO BID 09/28/18 10/04/18 25mg tablet] Previous Rx's Medication Instructions Recorded tamsulosin 0.4 mg capsule 0.4 mg PO DAILY #90 cap 04/26/18 furosemide 40 mg tablet 40 mg PO DAILY #90 tab 06/14/18 gabapentin 600 mg tablet 600 mg PO TID #270 tab 06/30/18 isosorbide mononitrate ER 60 mg 60 mg PO DAILY #90 tab 09/08/18 tablet,extended release 24 hr omeprazole 20 mg capsule,delayed 20 mg PO BID #180 cap 09/22/18 release spironolactone 50 mg tablet 50 mg PO DAILY #90 tab 09/22/18 Allergies Allergy/AdvReac Type Severity Reaction Status Date / Time oxycodone Allergy Intermediate I-RASH Verified 10/04/18 23:32 Sulfa (Sulfonamide Allergy Unknown Verified 10/04/18 23:32 Antibiotics) [facility] History - Hepatitis A Screen Drug use history?: No High risk sexual behaviors?: No History of sexually transmitted infection?: No Currently employed?: No Childcare worker?: No Do you have indoor plumbing?: Yes Do you have electricity?: Yes Attestation statement:: This patient has been screened for Hepatitis A risk factors. I have reviewed the patient's past medical history: Yes Medical History: Reports:: Cancer, Congestive Heart Failure, Chronic Obstructive Pulmonary Disease (COPD), Coronary Artery Disease, Diabetes Mellitus Type 2, Gastroesophageal Reflux Disease(GERD), Hyperlipidemia, Hypertension, Lung Disease, Kidney Stones, Myocardial Infarction Denies:: Diabetes Mellitus Type 1, Internal Pacemaker, MRSA, Seizures Other Medical History: Reports: Anemia, Arthritis Comment: Obesity, peripheral neuropathy Other Surgeries: Yes: Angioplasty, CABG, Cancer Surgery, Cardiac Cath eterization, Cardiac Surgery, Colonoscopy, EGD, Hernia Repair. No: Pacemaker Amputation: No Fractures: No Comment: Bilateral Runoff - Social History Smoking Status: Former smoker Tobacco Type: cigarettes Alcohol Intake: never Alcohol Intake Frequency:: other Substance Use Type: denies use Occupational Status: retired Housing: house Household Members: spouse - Psychiatric History Expresses thoughts of harming self/others: None Suicide Plan Description: No Plan Family Hx:: Heart Attack, Diabetes ROS Obtained: Yes All systems reviewed & no additional complaints - Constitutional Constitutional: Denies fever(s) - Eyes Eyes: Denies change in vision - ENT Ears, Nose, Mouth, and Throat: Denies sore throat - Cardiovascular Cardiovascular: Denies chest pain - Respiratory Respiratory: No cough - Gastrointestinal Gastrointestingal: Reports: as per HPI, bright red blood in stools - Genitourinary Male Genitourinary: Denies hematuria - Musculoskeletal Musculoskeletal: Denies joint pain, Denies neck pain - Integumentary/Breasts Skin/Breast: Denies rash - Neurologic Neurologic: Denies seizure-like activity Physical Exam - General General appearance: alert, obese - Head Head exam: normocephalic - Eye Eye exam: Present: PERRL, EOMI. Absent: scleral icterus - ENT ENT exam: Present: mucous membranes dry - Neck Neck exam: Present: trachea midline - Respiratory Respiratory exam: Absent: respiratory distress - Cardiovascular Cardiovascular exam: Present: regular rate, systolic murmur - Abdominal Exam Abdominal exam: Present: soft. Absent: tenderness - Extremities Exam Extremities exam: Absent: calf tenderness - Neurological Exam Neurological exam: Present: alert, oriented X3, CN II-XII intact - Psychiatric Psychiatric exam: Present: normal affect - Skin Skin exam: Absent: rash
[2018-10-05 05:56] LABS: Basophils % 0.5 % (0.1-2.0); Eosinophils # 0.2 K/mm3 (0.0-0.4); Eosinophils % 2.1 % (0.1-12.0); Lymphocytes # 1.4 K/mm3 (0.7-4.5); Mean Corpuscular HGB Conc 29.9 g/dL (31.8-35.4); Mean Corpuscular Hemoglobin 27.8 pg (27.0-31.2); Mean Corpuscular Volume 93.1 fl (80-94); Monocytes # 0.4 K/mm3 (0.1-1.0); Monocytes % 5.3 % (1.7-9.3); Neutrophils # 5.4 K/mm3 (1.8-7.8); Platelet Count 274 K/mm3 (142-424); Red Blood Count 2.69 M/mm3 (4.60-6.20); Red Cell Distribution Width 16.7 % (11.5-17.5); White Blood Count 7.4 K/mm3 (4.8-10.8)
[2018-10-05 06:06] LABS: Anion Gap 14.8 mEq/L (5-15); Calcium 8.2 mg/dL (8.5-10.1); Potassium 4.8 mmoL/L (3.5-5.1)
[2018-10-05 06:08] LABS: Hemoglobin 7.5 g/dL (14.1-18.0)
--- NOTE | 2018-10-05 06:35 | Consult Report ---
*Admission Date: 10/04/18 *Chief complaint: Gastrointestinal hemorrhage *History of present illness: This is a 78-year-old gentleman who was seen in follow-up in the office yesterday after undergoing EGD/colonoscopy for evaluation of gastrointestinal hemorrhage. At the time of evaluation in the office he had no signs of ongoing blood loss. Recommendations for additional evaluation to include UGI/SBFT, pos sible capsule endoscopy, and short-term repeat colonoscopy were discussed with the patient. He preferred to forego UGI/SBFT and capsule endoscopy. He was to be seen in close follow-up for repeat colonoscopy in 3-9 months. Later in the day he developed significant episodes of "a lot of old blood p ouring out from below" and was seen in the emergency department. The surgical service was consulted. He states that "everything has slowed down a lot now". Please see forwarded copy of note from yesterday's office visit below: Details: The patient returns status post EGD/colonoscopy. Indications, findings, specimens, and recommendations are forwarded below. Currently, he is without complaint. He states that his bowel movements have normalized and he has no sign of ongoing blood loss. No melena. No bright red blood per rectum. No hematemesis. 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 Patchy gastritis with focal areas of severe inflammation in antrum Patchy duodenitis Bowel preparation moderate to poor Significant spasticity Mild hemorrhoidal cushions Scattered diverticulosis Clip applied for hemostasis of complex cecal polyp Multiple complex polyps (see specimens) Specimens:: Duodenal bulb biopsy [PATH: benign] Biopsy focal inflammation of antrum [PATH: benign] Distal esophageal biopsy [PATH: benign] 9 mm complex cecal polyp (snared) [PATH: tubular adenoma] Lobulated sessile right colon polyp (snared) [PATH: tubular adenoma] 8 mm complex sessile distal right colon polyp and adjacent polyps (snared) [PATH: tubular adenoma] 9 mm ulcerated sessile polyp of the transverse colon and adjacent polyps (snared) [PATH: tubular adenoma] 1.5 cm lobulated polyp at 60 cm and adjacent polyp (snared) [PATH: tubular adenoma] 2 cm sessile polyp at 40 cm (snared) [PATH: benign] Lobulated ulcerated 1 cm polyp at 35 cm and adjacent polyps (snared) [PATH: tubular adenoma] Recommendations:: Ongoing evaluation with regard to anemia as no definitive sign of active/recent hemorrhage noted Timing of repeat colonoscopy pending pathology but will likely be between 3-9 months secondary to size/nature/number of polyps, limited bowel preparation, and spasticity Review of Systems - Constitutional Denies chills - Eyes Denies change in vision - *Cardiovascular Denies chest pain - *Respiratory Denies cough - *Gastrointestinal Denies abdominal pain, Denies vomiting blood, Denies nausea, Denies vomiting Comments: + large clot in stool yesterday - *Neurologic Denies seizure-like activity [facility] History Medical History: Reports:: Cancer (Prostate), Congestive Heart Failure, Chronic Obstructive Pulmonary Disease (COPD), Coronary Artery Disease, Diabetes Mellitus Type 2, Gastroesophageal Reflux Disease(GERD), Hyperlipidemia, Hypertension, Lung Disease, Kidney Stones, Myocardial Infarction Denies:: Diabetes Mellitus Type 1, Internal Pacemaker, MRSA, Seizures *Have you ever received a pneumonia vaccine?: Yes *Have you received a flu vaccine this season?: Yes Other Medical History: Reports: Anemia, Arthritis Other Surgeries: Yes: Angioplasty, CABG, Cancer Surgery, Cardiac Catheterization, Cardiac Surgery, Colonoscopy, EGD, Hernia Repair. No: Pacemaker Amputation: No Fractures: No - *Social History Educational Level: Completed High School Smoking Status: Former smoker Tobacco Type: cigarettes # Packs/Day (cigarettes): 1 Alcohol Intake: former Alcohol Intake Frequency:: other Substance Use Type: denies use *Occupational Status:: retired Housing: house Household Members: spouse *Travel in the last 8 weeks: None - Psychiatric History Expresses thoughts of harming self/others: None Suicide Plan Description: No Plan Family Hx:: Heart Attack, Diabetes Meds Home Medications Medication Instructions Recorded Confirmed Type aspirin 81 mg tablet,delayed 81 mg PO DAILY 08/05/17 10/05/18 History release clopidogrel 75 mg tablet 75 mg PO DAILY tab 02/15/18 10/05/18 History rosuvastatin 20 mg tablet 20 mg PO DAILY 03/20/18 10/05/18 History tamsulosin 0.4 mg capsule 0.4 mg PO DAILY #90 cap 04/26/18 10/05/18 Rx furosemide 40 mg tablet 40 mg PO DAILY #90 tab 06/14/18 10/05/18 Rx gabapentin 600 mg tablet 600 mg PO TID #270 tab 06/30/18 10/05/18 Rx Ferrous Gluconate [Ferrous 324 mg PO BID 08/23/18 10/05/18 History Gluconate 324mg Tab] Linagliptin [Tradjenta 5mg tablet] 5 mg PO DAILY 08/23/18 10/04/18 History Lisinopril [Prinivil 5mg Tablet] 5 mg PO DAILY 08/23/18 10/05/18 History glipiZIDE [Glucotrol] 5 mg PO BID 08/23/18 10/05/18 History insulin glargine (U- 100) 100 50 unit SUB-Q BID ml 08/23/18 10/05/18 History unit/mL subcutaneous solution insulin lispro (U- 100) 100 100 unit SQ BID ml 08/23/18 10/04/18 History unit/mL subcutaneous cartridge isosorbide mononitrate ER 60 mg 60 mg PO DAILY #90 tab 09/08/18 10/05/18 Rx tablet,extended release 24 hr omeprazole 20 mg capsule,delayed 20 mg PO BID #180 cap 09/22/18 10/05/18 Rx release spironolactone 50 mg tablet 50 mg PO DAILY #90 tab 09/22/18 10/05/18 Rx Gemfibrozil [Lopid 600mg Tablet] 600 mg PO BID 09/28/18 10/05/18 History Metoprolol Tartrate [Lopressor 25 mg PO BID 09/28/18 10/05/18 History 25mg tablet] Allergies Allergy/AdvReac Type Severity Reaction Status Date / Time oxycodone Allergy Intermediate I-RASH Verified 10/04/18 23:32 Sulfa (Sulfonamide Allergy Unknown Verified 10/04/18 23:32 Antibiotics) Exam Vital signs and Labs for Last 24 Hours: Temp Pulse Resp BP Pulse Ox 97.8 F 51 L 17 139/46 L 94 L 10/05/18 02:20 10/05/18 02:20 10/05/18 02:20 10/05/18 02:20 10/05/18 02:30 Laboratory Results - last 24 hr 10/04/18 23:34: WBC 9.4, RBC 3.17 L, Hgb 9.0 L, Hct 29.8 L, MCV 94.1 H, MCH 28.3, MCHC 30.1 L, RDW 16.5, Plt Count 351, MPV 7.4, Neut % (Auto) 79.8, Lymph % (Auto) 12.5, [place] % (Auto) 4.7, Eos % (Auto) 2.5, Baso % (Auto) 0.5, Neut # (Auto) 7.5, Lymph # (Auto) 1.2, [place] # (Auto) 0.4, Eos # (Auto) 0.2, Baso # (Auto) 0.0 10/04/18 23:34: Sodium 132 L, Potassium 6.6 H*, Chloride 100, Carbon Dioxide 23, Anion Gap 15.6 H, BUN 35 H, Creatinine 2.02 H, Estimated Creat Clear 45, Estimated GFR 32 L, Est GFR ( Amer) 39 L, Glucose 538 H*, Calcium 8.3 L, Total Bilirubin 0.3, AST 6 L, ALT 21, Alkaline Phosphatase 95, Total Protein 6.4, Albumin 3.0 L, Globulin 3.4 H, Albumin/Globulin Ratio 0.9 L 10/05/18 00:15: Potassium 6.8 H* 10/05/18 05:40: WBC 7.4, RBC 2.69 L, Hgb 7.5 L*, Hct 25.0 L, MCV 93.1, MCH 27.8, MCHC 29.9 L, RDW 16.7, Plt Count 274, MPV 9.0, Neut % (Auto) 73.0, Lymph % (Auto) 19.0, [place] % (Auto) 5.3, Eos % (Auto) 2.1, Baso % (Auto) 0.5, Neut # (Auto) 5.4, Lymph # (Auto) 1.4, [place] # (Auto) 0.4, Eos # (Auto) 0.2, Baso # (Auto) 0.0 10/05/18 05:40: Sodium 135 L, Potassium 4.8 D, Chloride 101, Carbon Dioxide 24, Anion Gap 14.8, BUN 36 H, Creatinine 1.77 H, Estimated Creat Clear 51, Estimated GFR 38 L, Est GFR ( Amer) 45 L, Glucose 497 H*, Calcium 8.2 L, Magnesium 1.6 I & O for Last 24 hours: Intake & Output 10/02/18 10/03/18 10/04/18 10/05/18 11:59 11:59 11:59 11:59 Weight 225 lb - Constitutional no acute distress - *Routine Cardiovascular Exam Comments: regular rhythm - *Routine Abdominal Exam Present: soft Results - Labs 10/05/18 05:40 10/05/18 05:40 Laboratory Results - last 24 hr 10/04/18 23:34: WBC 9.4, RBC 3.17 L, Hgb 9.0 L, Hct 29.8 L, MCV 94.1 H, MCH 28.3, MCHC 30.1 L, RDW 16.5, Plt Count 351, MPV 7.4, Neut % (Auto) 79.8, Lymph % (Auto) 12.5, [place] % (Auto) 4.7, Eos % (Auto) 2.5, Baso % (Auto) 0.5, Neut # (Auto) 7.5, Lymph # (Auto) 1.2, [place] # (Auto) 0.4, Eos # (Auto) 0.2, Baso # (A uto) 0.0 10/04/18 23:34: Sodium 132 L, Potassium 6.6 H*, Chloride 100, Carbon Dioxide 23, Anion Gap 15.6 H, BUN 35 H, Creatinine 2.02 H, Estimated Creat Clear 45, Estimated GFR 32 L, Est GFR ( Amer) 39 L, Glucose 538 H*, Calcium 8.3 L, Total Bilirubin 0.3, AST 6 L, ALT 21, Alkaline Phosphatase 95, Total Protein 6.4, Albumin 3.0 L, Globulin 3.4 H, Albumin/Globulin Ratio 0.9 L 10/05/18 00:15: Potassium 6.8 H* 10/05/18 05:40: WBC 7.4, RBC 2.69 L, Hgb 7.5 L*, Hct 25.0 L, MCV 93.1, MCH 27.8, MCHC 29.9 L, RDW 16.7, Plt Count 274, MPV 9.0, Neut % (Auto) 73.0, Lymph % ( Auto) 19.0, [place] % (Auto) 5.3, Eos % (Auto) 2.1, Baso % (Auto) 0.5, Neut # (Auto) 5.4, Lymph # (Auto) 1.4, [place] # (Auto) 0.4, Eos # (Auto) 0.2, Baso # (Auto) 0.0 10/05/18 05:40: Sodium 135 L, Potassium 4.8 D, Chloride 101, Carbon Dioxide 24, Anion Gap 14.8, BUN 36 H, Creatinine 1.77 H, Estimated Creat Clear 51, Estimated GFR 38 L, Est GFR ( Amer) 45 L, Glucose 497 H*, Calcium 8.2 L, Magnesium 1.6 Assessment and Plan (1) Gastrointestinal hemorrhage Current visit: Yes Status: Acute Category: Medical Code(s): K92.2 - Gastrointestinal hemorrhage, unspecified The patient has undergone multiple endoscopic procedures by multiple physicians over the past year with multiple gastric and colonic potential sources noted as he does have a history of linear gastric erosions, diverticulosis, and recent large colonic polypectomy sites (1 week ago) with clip placement for hemostasis. The likelihood of postprocedural bleeding is somewhat lower as he showed absolutely no signs of post-colonoscopy bleeding for 1 week. He did have multiple large polyps removed and one in the cecum requiring clip placement for hemostasis; however, so delayed bleeding is certainly a possibility. A more likely source remains either recurrent gastric erosions or potential source that has yet to be identified (such as in the small bowel). 2 unit blood transfusion (now) with close ongoing evaluation for signs of continued blood loss. PPI (changed to IV Protonix BID) Serial H/H. He may require urgent repeat endoscopy for control; however, I would otherwise "hold off" on any intervention for now. UGI/SBFT (as discussed in the outpatient clinic) will be completed when he is deemed to be medically stable. Possible capsule endoscopy (as an outpatient at an outside facility) may still be required. He still will require short-term repeat colonoscopy within the next 3-9 months. (2) Anemia Current visit: Yes Status: Acute Qualifiers: Anemia type: unspecified type Qualified Code(s): D64.9 - Anemia, unspecified Category: Medical Code(s): D64.9 - Anemia, unspecified
--- NOTE | 2018-10-05 07:29 | Pharmacy Consult Notes ---
[facility] Pharmacy VTE Monitoring - Patient Demographics Admission date: 10/05/18 Report Date: 10/05/18 Time: 07:29 Allergies/Adverse Reactions: Patient Allergies oxycodone Allergy (Intermediate, Verified 10/04/18 23:32) I-RASH Sulfa (Sulfonamide Antibiotics) Allergy (Unknown, Verified 10/04/18 23:32) Height: 1.7 m Weight: 102.058 kg Patient Problems: Current Active Problems Anemia (Acute) Guaiac positive stools (Acute) Renal insufficiency (Acute) Hx of CABG (Acute) Hyperkalemia (Acute) Lower gastrointestinal hemorrhage (Acute) Obesity (BMI 30-39.9) (Acute) Gastritis and duodenitis (Acute) Diverticulosis (Acute) Gastrointestinal hemorrhage (Acute) IDDM (insulin dependent diabetes mellitus) (Chronic) CAD (coronary artery disease) (Chronic) - VTE Risk Labs: VTE Related Lab Results Hgb 7.5 g/dL (14.1-18.0) L* 10/05/18 05:40 Hct 25.0 % (42.0-52.0) L 10/05/18 05:40 Plt Count 274 K/mm3 (142-424) 10/05/18 05:40 BUN 36 mg/dL (7-18) H 10/05/18 05:40 Creatinine 1.77 mg/dL (0.70-1.30) H 10/05/18 05:40 Estimated Creat Clear 51 mL/min (50-200) 10/05/18 05:40 VTE Risk Level: Low Risk - Prophylaxis VTE Prophylaxis Ordered?: Yes Types of VTE Prophylaxis: TEDS Knee High Location of Applied Device: Bilateral Lower Extremeties - VTE Diagnosis Confirmed Treatment or plan recommended: Continue Current Treatment
--- NOTE | 2018-10-05 09:15 | History & Physical Report ---
*Admission Date: 10/05/18 *Chief complaint: gi bleed *History of present illness: 78-year-old male who was seen in Satya's office yesterday after undergoing EGD/colonoscopy for evaluation of gastrointestinal hemorrhage. Pt states later in the day he developed significant episodes of "a lot of old blood pourin g out from below" and was seen in the emergency department. The surgical service was consulted. He states that "everything has slowed down a lot now", only blood on toilet paper when wiping. [facility] History I have reviewed the patient's past medical history: Yes Medical History: Reports:: Cancer (Prostate), Congestive Heart Failure, Chronic Obstructive Pulmonary Disease (COPD), Coronary Artery Disease, Diabetes Mellitus Type 2, Gastroesophageal Reflux Disease(GERD), Hyperlipidemia, Hypertension, Lung Disease, Kidney Stones, Myocardial Infarction Denies:: Diabetes Mellitus Type 1, Internal Pacemaker, MRSA, Seizures *Have you ever received a pneumonia vaccine?: Yes *Have you received a flu vaccine this season?: Yes Other Medical History: Reports: Anemia, Arthritis Other Surgeries: Yes: Angioplasty, CABG, Cancer Surgery, Cardiac Catheterization, Cardiac Surgery, Colonoscopy, EGD, Hernia Repair. No: Pacemaker Amputation: No Fractures: No - *Social History Educational Level: Completed High School Smoking Status: Former smoker Tobacco Type: cigarettes # Packs/Day (cigarettes): 1 Alcohol Intake: former Alcohol Intake Frequency:: other Substance Use Type: denies use *Occupational Status:: retired Housing: house Household Members: spouse *Travel in the last 8 weeks: None - Psychiatric History Expresses thoughts of harming self/others: None Suicide Plan Description: No Plan Family Hx:: Heart Attack, Diabetes Review of Systems - Review of Systems Review of systems:: pertinent systems reviewed and negative unless documented below - Constitutional Denies chills, Denies fever(s), Denies weakness - Eyes Denies blurry vision - ENT Denies bleeding gums, Denies sore throat, Denies dizziness - *Cardiovascular Denies chest pain with activity, Denies fast heart rate - *Respiratory Denies chest congestion, Denies excessive phlegm production - *Gastrointestinal Reports change in bowel habits, Reports bright, red blood in stools - *Genitourinary Denies urinary frequency - *Musculoskeletal Denies decreased muscle mass - Integumentary/Breasts Denies change in hair, Denies rash - *Neurologic Denies abnormal movements, Denies seizure-like activity - Psychiatric Denies lack of enjoyment, Denies anxiety - Endocrine Denies flushing - Hematologic/Lymphatic Denies enlarged lymph nodes - Allergic/Immunologic Denies lip swelling Meds Home Medications Medication Instructions Recorded Confirmed Type aspirin 81 mg tablet,delayed 81 mg PO DAILY 08/05/17 10/05/18 History release clopidogrel 75 mg tablet 75 mg PO DAILY tab 02/15/18 10/05/18 History rosuvastatin 20 mg tablet 20 mg PO DAILY 03/20/18 10/05/18 History tamsulosin 0.4 mg capsule 0.4 mg PO DAILY #90 cap 04/26/18 10/05/18 Rx furosemide 40 mg tablet 40 mg PO DAILY #90 tab 06/14/18 10/05/18 Rx gabapentin 600 mg tablet 600 mg PO TID #270 tab 06/30/18 10/05/18 Rx Ferrous Gluconate [Ferrous 324 mg PO BID 08/23/18 10/05/18 History Gluconate 324mg Tab] Linagliptin [Tradjenta 5mg tablet] 5 mg PO DAILY 08/23/18 10/04/18 History Lisinopril [Prinivil 5mg Tablet] 5 mg PO DAILY 08/23/18 10/05/18 History glipiZIDE [Glucotrol] 5 mg PO BID 08/23/18 10/05/18 History insulin glargine (U- 100) 100 50 unit SUB-Q BID ml 08/23/18 10/05/18 History unit/mL subcutaneous solution insulin lispro (U- 100) 100 100 unit SQ BID ml 08/23/18 10/04/18 History unit/mL subcutaneous cartridge isosorbide mononitrate ER 60 mg 60 mg PO DAILY #90 tab 09/08/18 10/05/18 Rx tablet,extended release 24 hr omeprazole 20 mg capsule,delayed 20 mg PO BID #180 cap 09/22/18 10/05/18 Rx release spironolactone 50 mg tablet 50 mg PO DAILY #90 tab 09/22/18 10/05/18 Rx Gemfibrozil [Lopid 600mg Tablet] 600 mg PO BID 09/28/18 10/05/18 History Metoprolol Tartrate [Lopressor 25 mg PO BID 09/28/18 10/05/18 History 25mg tablet] Allergies Allergy/AdvReac Type Severity Reaction Status Date / Time oxycodone Allergy Intermediate I-RASH Verified 10/04/18 23:32 Sulfa (Sulfonamide Allergy Unknown Verified 10/04/18 23:32 Antibiotics) Exam Vital signs and Labs for Last 24 Hours: Temp Pulse Resp BP Pulse Ox 98.0 F 61 16 154/64 H 96 10/05/18 08:00 10/05/18 08:00 10/05/18 08:00 10/05/18 08:00 10/05/18 08:00 Laboratory Results - last 24 hr 10/04/18 23:34: WBC 9.4, RBC 3.17 L, Hgb 9.0 L, Hct 29.8 L, MCV 94.1 H, MCH 28.3, MCHC 30.1 L, RDW 16.5, Plt Count 351, MPV 7.4, Neut % (Auto) 79.8, Lymph % (Auto) 12.5, [place] % (Auto) 4.7, Eos % (Auto) 2.5, Baso % (Auto) 0.5, Neut # (Auto) 7.5, Lymph # (Auto) 1.2, [place] # (Auto) 0.4, Eos # (Auto) 0.2, Baso # (Auto) 0.0 10/04/18 23:34: Sodium 132 L, Potassium 6.6 H*, Chloride 100, Carbon Dioxide 23, Anion Gap 15.6 H, BUN 35 H, Creatinine 2.02 H, Estimated Creat Clear 45, Estimated GFR 32 L, Est GFR ( Amer) 39 L, Glucose 538 H*, Calcium 8.3 L, Total Bilirubin 0.3, AST 6 L, ALT 21, Alkaline Phosphatase 95, Total Protein 6.4, Albumin 3.0 L, Globulin 3.4 H, Albumin/Globulin Ratio 0.9 L 10/05/18 00:15: Potassium 6.8 H* 10/05/18 05:40: Troponin I < 0.02 10/05/18 05:40: WBC 7.4, RBC 2.69 L, Hgb 7.5 L*, Hct 25.0 L, MCV 93.1, MCH 27.8, MCHC 29.9 L, RDW 16.7, Plt Count 274, MPV 9.0, Neut % (Auto) 73.0, Lymph % (Auto) 19.0, [place] % (Auto) 5.3, Eos % (Auto) 2.1, Baso % (Auto) 0.5, Neut # (Auto) 5.4, Lymph # (Auto) 1.4, [place] # (Auto) 0.4, Eos # (Auto) 0.2, Baso # (Auto) 0.0 10/05/18 05:40: Sodium 135 L, Potassium 4.8 D, Chloride 101, Carbon Dioxide 24, Anion Gap 14.8, BUN 36 H, Creatinine 1.77 H, Estimated Creat Clear 51, Estimated GFR 38 L, Est GFR ( Amer) 45 L, Glucose 497 H*, Calcium 8.2 L, Magnesium 1.6 10/05/18 07:55: Troponin I 0.02 10/05/18 07:55: Crossmatch (AHG) See Detail I & O for Last 24 hours: Intake & Output 10/02/18 10/03/18 10/04/18 10/05/18 11:59 11:59 11:59 11:59 Intake Total 720 / 720 Balance 720 / 720 Weight 225 lb - Constitutional no acute distress - *Routine HEENT Exam Head: Present: normocephalic Eye: Present: EOMI, PERRL ENT: Present: mucous membranes moist - *Routine Neck Exam Present: supple. Absent: lymphadenopathy - *Routine Respiratory Exam Present: CTA bilaterally - *Routine Cardiovascular Exam Present: RRR - *Routine Abdominal Exam Present: soft, normoactive bowel sounds. Absent: tenderness - *Routine Extremities Exam Absent: cyanosis, clubbing, edema - *Routine Skin Exam Present: warm. Absent: rash - *Routine Neurological Exam Present: alert, oriented X3 - Routine Psychiatric Exam Present: normal affect Assessment and Plan (1) Gastrointestinal hemorrhage Current visit: Yes Status: Acute Category: Medical Code(s): K92.2 - Gastrointestinal hemorrhage, unspecified (2) Anemia Current visit: Yes Status: Acute Qualifiers: Anemia type: unspecified type Qualified Code(s): D64.9 - Anemia, unspecified Category: Medical Code(s): D64.9 - Anemia, unspecified - Assessment and plan all Dx Assessment and Plan for all problems:: Rounded with Dr. Heard all orders per [place]
[2018-10-05 17:58] LABS: Hematocrit 30.7 % (42.0-52.0)
[2018-10-05 18:14] LABS: Hemoglobin 9.9 g/dL (14.1-18.0)
--- NOTE | 2018-10-06 06:33 | Progress Note ---
Subjective Patient reports: no new complaints Exam Vital signs and Labs for Last 24 Hours: Temp Pulse Resp BP Pulse Ox 98.5 F 67 18 123/41 L 94 L 10/06/18 04:00 10/06/18 04:00 10/06/18 04:00 10/06/18 04:00 10/06/18 04:00 Laboratory Results - last 24 hr 10/05/18 05:40: Troponin I < 0.02 10/05/18 06:15: POC Glucose 501 H* 10/05/18 06:17: POC Glucose 488 H* 10/05/18 07:55: Troponin I 0.02 10/05/18 07:55: Blood Type A Positive, Antibody Screen Negative, Crossmatch (AHG) See Detail 10/05/18 10:52: POC Glucose 415 H* 10/05/18 16:15: POC Glucose 363 H* 10/05/18 17:50: Hgb 9.9 L D, Hct 30.7 L 10/05/18 21:27: POC Glucose 287 H I & O for Last 24 hours: Intake & Output 10/03/18 10/04/18 10/05/18 10/06/18 11:59 11:59 11:59 11:59 Intake Total 720 / 720 836 / 836 Balance 720 / 720 836 / 836 Weight 225 lb - Constitutional no acute distress - *Routine Cardiovascular Exam Present: RRR - *Routine Abdominal Exam Present: soft Progress Note: A&P (1) Gastrointestinal hemorrhage Status: Acute Assessment and plan: No sign of ongoing hemorrhage. Good response blood transfusion yesterday. Follow-up a.m. labs UGI/SBFT ordered Likely capsule endoscopy Short-term repeat colonoscopy as planned May need repeat EGD The patient may potentially be discharged after UGI/SBFT if he remains stable. He will have ongoing close follow-up. Current Visit: Yes (2) Anemia Status: Acute Current Visit: Yes
[2018-10-06 07:35] LABS: Basophils % 0.4 % (0.1-2.0); Eosinophils # 0.2 K/mm3 (0.0-0.4); Eosinophils % 4.2 % (0.1-12.0); Hematocrit 30.3 % (42.0-52.0); Hemoglobin 9.9 g/dL (14.1-18.0); Lymphocytes # 1.1 K/mm3 (0.7-4.5); Lymphocytes % 18.6 % (10-50); Mean Corpuscular HGB Conc 32.5 g/dL (31.8-35.4); Mean Corpuscular Hemoglobin 29.2 pg (27.0-31.2); Mean Corpuscular Volume 89.8 fl (80-94); Mean Platelet Volume 7.5 fl (7.4-10.4); Monocytes # 0.3 K/mm3 (0.1-1.0); Monocytes % 5.2 % (1.7-9.3); Neutrophils # 4.2 K/mm3 (1.8-7.8); Neutrophils % 71.7 % (37.0-80.0); Platelet Count 236 K/mm3 (142-424); Red Blood Count 3.37 M/mm3 (4.60-6.20); Red Cell Distribution Width 16.6 % (11.5-17.5); White Blood Count 5.8 K/mm3 (4.8-10.8)
[2018-10-06 07:39] LABS: Anion Gap 11.7 mEq/L (5-15); Calcium 8.2 mg/dL (8.5-10.1); Potassium 4.7 mmoL/L (3.5-5.1)
--- NOTE | 2018-10-06 15:59 | Discharge Summary ---
General - General Admission date:: 10/05/18 Discharge date: 10/06/18 HPI HPI: 78-year-old male who was seen in Keshav's office yesterday after undergoing EGD/colonoscopy for evaluation of gastrointestinal hemorrhage. Pt states later in the day he developed significant episodes of "a lot of old blood pouring out from below" and was seen in the emergency department. The surgical service was consulted. He states that "everything has slowed down a lot now", only blood on toilet paper when wiping. Hospital Course Hospital Course: surgery consult- see note ugi/[id number]-IMPRESSION: Negative upper GI and small bowel follow-through will dc home, [facility]hav office to arrange capsule endoscopy, repeat colonoscopy on 3- 9 months follow up next week with james Objective Vital signs: Temp Pulse Resp BP Pulse Ox 98.3 F 67 16 153/48 H 91 L 10/06/18 08:00 10/06/18 08:00 10/06/18 08:00 10/06/18 08:00 10/06/18 08:00 no acute distress - *Routine HEENT Exam Head: Present: normocephalic Eye: Present: PERRL ENT: Present: mucous membranes moist - *Routine Respiratory Exam Present: CTA bilaterally - *Routine Cardiovascular Exam Present: RRR - *Routine Abdominal Exam Present: soft, normoactive bowel sounds. Absent: tenderness - *Routine Extremities Exam Present: full ROM - *Routine Skin Exam Present: intact - *Routine Neurological Exam Present: alert, oriented X3 - Routine Psychiatric Exam Present: normal affect Results Labs on day of discharge: Labs from last 24 hours 10/06/18 10/06/18 10/06/18 11:18 06:44 06:44 WBC 5.8 RBC 3.37 L D Hgb 9.9 L Hct 30.3 L MCV 89.8 MCH 29.2 MCHC 32.5 RDW 16.6 Plt Count 236 MPV 7.5 Neut % (Auto) 71.7 Lymph % (Auto) 18.6 Sumner % (Auto) 5.2 Eos % (Auto) 4.2 Baso % (Auto) 0.4 Neut # (Auto) 4.2 Lymph # (Auto) 1.1 [place] # (Auto) 0.3 Eos # (Auto) 0.2 Baso # (Auto) 0.0 Sodium 138 Potassium 4.7 Chloride 106 Carbon Dioxide 25 Anion Gap 11.7 BUN 19 H D Creatinine 1.16 D Estimated Creat Clear 78 Estimated GFR 61 Est GFR ( Amer) 74 D Glucose 283 H POC Glucose 351 H* Calcium 8.2 L Crossmatch ([facility]) 10/06/18 10/05/18 10/05/18 06:22 21:27 17:50 WBC RBC Hgb 9.9 L D Hct 30.7 L MCV MCH MCHC RDW Plt Count MPV Neut % (Auto) Lymph % (Auto) [place] % (Auto) Eos % (Auto) Baso % (Auto) Neut # (Auto) Lymph # (Auto) [place] # (Auto) Eos # (Auto) Baso # (Auto) Sodium Potassium Chloride Carbon Dioxide Anion Gap BUN Creatinine Estimated Creat Clear Estimated GFR Est GFR ( Amer) Glucose POC Glucose 279 H 287 H Calcium Crossmatch (G) 10/05/18 10/05/18 16:15 07:55 WBC RBC Hgb Hct MCV MCH MCHC RDW Plt Count MPV Neut % (Auto) Lymph % (Auto) [place] % (Auto) Eos % (Auto) Baso % (Auto) Neut # (Auto) Lymph # (Auto) [place] # (Auto) Eos # (Auto) Baso # (Auto) Sodium Potassium Chloride Carbon Dioxide Anion Gap BUN Creatinine Estimated Creat Clear Estimated GFR Est GFR ( Amer) Glucose POC Glucose 363 H* Calcium Crossmatch ([facility]) See Detail - Additional Comments rounded with artis all orders per artis DS: Diagnosis - Discharge Diagnosis (1) Gastrointestinal hemorrhage Status: Acute (2) Anemia Status: Acute Discharge Plan - Patient Discharge Instructions ACTIVITY: Continue current activity DIET: continue same diet Patient Instructions: Blood Transfusion, Anemia, DI for Hyperkalemia, DI for Gastrointestinal Bleeding - Follow up Plan Follow up with: Juan Hernadez MD [Staff Physician] - 1 week Duncan Heard MD [Primary Care Provider] - 1 week Disposition: Home, Self-Longterm Medications: Home Medications Medication Instructions Recorded Confirmed Type aspirin 81 mg tablet,delayed 81 mg PO DAILY 08/05/17 10/05/18 History release clopidogrel 75 mg tablet 75 mg PO DAILY tab 02/15/18 10/05/18 History rosuvastatin 20 mg tablet 20 mg PO DAILY 03/20/18 10/05/18 History tamsulosin 0.4 mg capsule 0.4 mg PO DAILY #90 cap 04/26/18 10/05/18 Rx furosemide 40 mg tablet 40 mg PO DAILY #90 tab 06/14/18 10/05/18 Rx gabapentin 600 mg tablet 600 mg PO TID #270 tab 06/30/18 10/05/18 Rx Ferrous Gluconate [Ferrous 324 mg PO BID 08/23/18 10/05/18 History Gluconate 324mg Tab] Lisinopril [Prinivil 5mg Tablet] 5 mg PO DAILY 08/23/18 10/05/18 History glipiZIDE [Glucotrol] 5 mg PO BID 08/23/18 10/05/18 History insulin glargine (U- 100) 100 50 unit SUB-Q BID ml 08/23/18 10/05/18 History unit/mL subcutaneous solution isosorbide mononitrate ER 60 mg 60 mg PO DAILY #90 tab 09/08/18 10/05/18 Rx tablet,extended release 24 hr omeprazole 20 mg capsule,delayed 20 mg PO BID #180 cap 09/22/18 10/05/18 Rx release spironolactone 50 mg tablet 50 mg PO DAILY #90 tab 09/22/18 10/05/18 Rx Gemfibrozil [Lopid 600mg Tablet] 600 mg PO BID 09/28/18 10/05/18 History Metoprolol Tartrate [Lopressor 25 mg PO BID 09/28/18 10/05/18 History 25mg tablet] Pantoprazole Sodium [Protonix 40mg 40 mg PO DAILY 30 Days #30 10/06/18 Rx tablet] tablet.dr Prescriptions/Medication Reconciliation: New Pantoprazole Sodium [Protonix 40mg tablet] 40 mg PO DAILY 30 Days #30 tablet.dr Continue tamsulosin 0.4 mg capsule 0.4 mg PO DAILY #90 cap furosemide 40 mg tablet 40 mg PO DAILY #90 tab isosorbide mononitrate ER 60 mg tablet,extended release 24 hr 60 mg PO DAILY #90 tab spironolactone 50 mg tablet 50 mg PO DAILY #90 tab aspirin 81 mg tablet,delayed release 81 mg PO DAILY clopidogrel 75 mg tablet 75 mg PO DAILY tab rosuvastatin 20 mg tablet 20 mg PO DAILY gabapentin 600 mg tablet 600 mg PO TID #270 tab insulin glargine (U- 100) 100 unit/mL subcutaneous solution 50 unit SUB-Q BID ml glipiZIDE [Glucotrol] 5 mg PO BID Ferrous Gluconate [Ferrous Gluconate 324mg Tab] 324 mg PO BID Gemfibrozil [Lopid 600mg Tablet] 600 mg PO BID Lisinopril [Prinivil 5mg Tablet] 5 mg PO DAILY Metoprolol Tartrate [Lopressor 25mg tablet] 25 mg PO BID Discontinued omeprazole 20 mg capsule,delayed release 20 mg PO BID #180 cap
== END 2018-10-06 17:41 | disposition home or self-care (01) | DRG 379 ==
LOC: ER 23:12 → 2ND 23:12 → OBSVTOIN 10-05 02:20 → 2ND 10-05 02:21
PROVIDERS: ADMIT Emergency Medicine; ATTEND Emergency Medicine
CPT/HCPCS: 36415; 74245; 80048; 80053; 82962; 83735; 84132; 84484; 85014; 85018; 85025; 86850; 93005; 94761; 96365; 96375; 99284; P9016

== ENCOUNTER → 2018-10-11 14:26 | Outpatient (CLI) | payer MEDICARE, OTHER, SELFPAY ==
[2018-10-11 15:14] LABS: Hematocrit 33.5 % (42.0-52.0); Hemoglobin 10.6 g/dL (14.1-18.0)
[2018-10-11 16:06] LABS: Anion Gap 16.5 mEq/L (5-15); Blood Urea Nitrogen 27 mg/dL (7-18); Calcium 8.6 mg/dL (8.5-10.1); Carbon Dioxide 23 mmol/L (21.0-32.0); Chloride 103 mmol/L (98-107); Creatinine,Serum 1.55 mg/dL (0.70-1.30); Estimated Glomerular Filt Rate 44 ml/min (>60); GFR (African American) 53 ML/MIN (>60); Glucose 227 mg/dL (74-106); Potassium 4.5 mmoL/L (3.5-5.1); Sodium 138 mmol/L (136-145)
== END ==
PROVIDERS: Surgery; Visit Provider Emergency Medicine
DX: Z09 Encounter for follow-up examination after completed treatment for conditions other than malignant neoplasm (principal); K92.2 Gastrointestinal hemorrhage, unspecified
CPT/HCPCS: 36415; 80048; 85014; 85018

== ENCOUNTER 2019-01-20 19:19 | Emergency (ER) | payer MEDICARE, OTHER, SELFPAY ==
[2019-01-20 19:42] VITALS: BP 139/79; PULSE 65; RESP 22; TEMP 36.8; O2SAT 98; BMI 35.2
--- NOTE | 2019-01-20 19:53 | HMH.EDUTC ---
[facility] [place] Impression: Sinusitis Qualifiers: Sinusitis location: maxillary Chronicity: acute Recurrence: non-recurrent Qualified Code(s): J01.00 - Acute maxillary sinusitis, unspecified Disposition: Home, Self-Care Condition on Discharge: Good Instructions: Sinusitis, DI for Sinusitis Additional Instructions: Start antibiotic patient to take as ordered for a full length of time even if you feel better. Sinus infections do not get better overnight. It may take 2-3 days to notice much improvement so be sure to use conservative measures as discussed for symptoms. Flonase 1 spray each nostril daily to help with nasal congestion, sinus and ear pressure/information Increase fluids Humidifier/vaporizer as needed Tylenol and ibuprofen as needed for fever or pain. If symptoms do not improve or get worse return or be seen in the ER Follow-up with primary care this week Prescriptions: Fluticasone Propionate [Flonase 50mcg nasal spray 16gm] 1 spr NS DAILY 7 Days #1 bottle cephALEXin [Keflex 500mg Cap] 500 mg PO BID 10 Days #20 cap Benzonatate [Tessalon Perle 100mg Cap] 100 mg PO BID PRN 7 Days #14 cap PRN Reason: Cough Referrals: Duncan Heard MD [Primary Care Provider] - Time of Disposition: 19:57 Medical Decision Making - Bill Inquiry Pt receiving controlled substance: No Vital Signs: 01/20/19 19:42 Temperature 98.3 F Temperature Source Oral Pulse Rate [Brachial] 65 Respiratory Rate 22 Blood Pressure [Right Arm] 139/79 Blood Pressure Mean [Right Arm] 99 Blood Pressure Source [Right Arm] Automatic Cuff Blood Pressure Position [Right Arm] Supine 02 Sat by Pulse Oximetry 98 Oxygen Delivery Method Room Air Orders (Tests/Meds): ED MEDICATIONS Discontinued Medications Generic Name Dose Route Start Last Admin Trade Name Freq PRN Reason Stop Dose Admin Ceftriaxone Sodium 1 gm 01/20/19 19:47 Rocephin 1gm Vial IM 01/20/19 19:48 ONCE ONE Protocol Lidocaine HCl 0 ml 01/20/19 19:47 Lidocaine 1% 10ml Mdv IM 01/20/19 19:48 ONCE [place] [facility] [place] - General Chief complaint: Urgent [facility] Stated complaint: bad cough Time Seen by Provider: 01/20/19 19:53 Mode of Arrival: Ambulatory Source of Information: Patient Limitations: No Limitations Description of Symptoms (Recalled from Triage Doc. by RN): PT C/O COUGH HEENT Symptoms (Recalled from RN notes): No Resp Symptoms (Recalled from RN notes): Yes (COUGH) Skin Symptoms (Recalled from RN notes): No MS Symptoms (Recalled from RN notes): No Functional Status (Recalled from RN notes): N/A - History of Present Illness Provider Complaint: 78 yr old male presents for coughing up thick yellow sputum, nasal congestion, and sinus pressure. - Related Data Home Medications Medication Instructions Recorded Confirmed rosuvastatin 20 mg tablet 20 mg PO DAILY 03/20/18 11/23/18 Ferrous Gluconate [Ferrous 324 mg PO BID 08/23/18 11/23/18 Gluconate 324mg Tab] Lisinopril [Prinivil 5mg Tablet] 5 mg PO DAILY 08/23/18 11/23/18 glipiZIDE [Glucotrol] 5 mg PO BID 08/23/18 11/23/18 insulin glargine (U-100) 100 50 unit SUB-Q BID ml 08/23/18 11/23/18 unit/mL subcutaneous solution Gemfibrozil [Lopid 600mg Tablet] 600 mg PO BID 09/28/18 11/23/18 Previous Rx's Medication Instructions Recorded isosorbide mononitrate ER 60 mg 60 mg PO DAILY #90 tab 09/08/18 tablet,extended release 24 hr pantoprazole 40 mg tablet,delayed 40 mg PO DAILY #30 tab 11/11/18 release gabapentin 600 mg tablet 600 mg PO TID #270 tab 11/22/18 furosemide 40 mg tablet See Rx Instructions .ROUTE 11/24/18 .COMPLEX #90 tablet tamsulosin 0.4 mg capsule 0.4 mg PO DAILY #90 cap 11/29/18 clopidogrel 75 mg tablet 75 mg PO DAILY #90 tab 11/30/18 metoprolol tartrate 25 mg tablet 25 mg PO BID #180 tab 12/08/18 spironolactone 50 mg tablet 50 mg PO DAILY #90 tab 01/03/19 Benzonatate [Tessalon Perle 100mg 100 mg PO BID PRN 7 Days #14 cap 01/20/19 Ca
--- NOTE | 2019-01-20 19:56 | ED_ITS ---
[facility] [place] Clinical Impression: Sinusitis Qualifiers: Sinusitis location: maxillary Chronicity: acute Recurrence: non-recurrent Qualified Code(s): J01.00 - Acute maxillary sinusitis, unspecified Disposition: Home, Self-Care Condition on Discharge: Good Instructions: Sinusitis, DI for Sinusitis Additional Instructions: Start antibiotic patient to take as ordered for a full length of time even if you feel better. Sinus infections do not get better overnight. It may take 2-3 days to notice much improvement so be sure to use conservative measures as discussed for symptoms. Flonase 1 spray each nostril daily to help with nasal congestion, sinus and ear pressure/information Increase fluids Humidifier/vaporizer as needed Tylenol and ibuprofen as needed for fever or pain. If symptoms do not improve or get worse return or be seen in the ER Follow-up with primary care this week Prescriptions: Fluticasone Propionate [Flonase 50mcg nasal spray 16gm] 1 spr NS DAILY 7 Days #1 bottle cephALEXin [Keflex 500mg Cap] 500 mg PO BID 10 Days #20 cap Benzonatate [Tessalon Perle 100mg Cap] 100 mg PO BID PRN 7 Days #14 cap PRN Reason: Cough Referrals: Duncan Heard MD [Primary Care Provider] - Time of Disposition: 19:57 Medical Decision Making - Bill Inquiry Pt receiving controlled substance: No Vital Signs: 01/20/19 19:42 Temperature 98.3 F Temperature Source Oral Pulse Rate [Brachial] 65 Respiratory Rate 22 Blood Pressure [Right Arm] 139/79 Blood Pressure Mean [Right Arm] 99 Blood Pressure Source [Right Arm] Automatic Cuff Blood Pressure Position [Right Arm] Supine 02 Sat by Pulse Oximetry 98 Oxygen Delivery Method Room Air Orders (Tests/Meds): ED MEDICATIONS Discontinued Medications Generic Name Dose Route Start Last Admin Trade Name Freq PRN Reason Stop Dose Admin Ceftriaxone Sodium 1 gm 01/20/19 19:47 Rocephin 1gm Vial IM 01/20/19 19:48 ONCE ONE Protocol Lidocaine HCl 0 ml 01/20/19 19:47 Lidocaine 1% 10ml Mdv IM 01/20/19 19:48 ONCE ONE [facility] [place] - General Chief complaint: Urgent Treatment Center Stated complaint: bad cough Time Seen by Provider: 01/20/19 19:53 Mode of Arrival: Ambulatory Source of Information: Patient Limitations: No Limitations Description of Symptoms (Recalled from Triage Doc. by RN): PT C/O COUGH HEENT Symptoms (Recalled from RN notes): No Resp Symptoms (Recalled from RN notes): Yes (COUGH) Skin Symptoms (Recalled from RN notes): No MS Symptoms (Recalled from RN notes): No Functional Status (Recalled from RN notes): N/A - History of Present Illness Provider Complaint: 78 yr old male presents for coughing up thick yellow sputum, nasal congestion, and sinus pressure. - Related Data Home Medications Medication Instructions Recorded Confirmed rosuvastatin 20 mg tablet 20 mg PO DAILY 03/20/18 11/23/18 Ferrous Gluconate [Ferrous 324 mg PO BID 08/23/18 11/23/18 Gluconate 324mg Tab] Lisinopril [Prinivil 5mg Tablet] 5 mg PO DAILY 08/23/18 11/23/18 glipiZIDE [Glucotrol] 5 mg PO BID 08/23/18 11/23/18 insulin glargine (U-100) 100 50 unit SUB-Q BID ml 08/23/18 11/23/18 unit/mL subcutaneous solution [place]
[2019-01-20 20:04] VITALS: BP 139/79; PULSE 65; RESP 22; TEMP 36.8; O2SAT 98
== END 2019-01-20 20:05 | disposition home or self-care (01) ==
PROVIDERS: Emergency Provider Nurse Practitioner Family; PCP Emergency Medicine
DX: J01.00 Acute maxillary sinusitis, unspecified (principal); I10 Essential (primary) hypertension; E78.5 Hyperlipidemia, unspecified; E11.9 Type 2 diabetes mellitus without complications; K21.9 Gastro-esophageal reflux disease without esophagitis; J44.9 Chronic obstructive pulmonary disease, unspecified; I48.91 Unspecified atrial fibrillation; Z88.2 Allergy status to sulfonamides; Z88.5 Allergy status to narcotic agent; Z79.899 Other long term (current) drug therapy
CPT/HCPCS: G0463; 96372; 99201

== ENCOUNTER → 2019-02-07 12:47 | Outpatient (POV) | payer MEDICARE, OTHER, SELFPAY | PROVIDERS: Visit Provider Internal Medicine Nephrology | DX: Z00.00 Encounter for general adult medical examination without abnormal findings (principal) ==

== ENCOUNTER → 2019-02-21 18:03 | Outpatient (CLI) | payer MEDICARE, OTHER, SELFPAY ==
[2019-02-21 19:56] LABS: Anion Gap 17.5 mEq/L (5-15); Blood Urea Nitrogen 32 mg/dL (7-18); Carbon Dioxide 23 mmol/L (21.0-32.0); Chloride 99 mmol/L (98-107); Estimated Glomerular Filt Rate 39 ml/min (>60); GFR (African American) 48 ML/MIN (>60); Glucose 197 mg/dL (74-106); Potassium 4.5 mmoL/L (3.5-5.1); Sodium 135 mmol/L (136-145)
== END ==
PROVIDERS: Visit Provider Emergency Medicine
DX: E11.9 Type 2 diabetes mellitus without complications (principal); Z79.4 Long term (current) 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
CPT/HCPCS: 80048

== ENCOUNTER → 2019-02-22 14:06 | Outpatient (CLI) | payer MEDICARE, OTHER, SELFPAY ==
[2019-02-22 15:02] LABS: Anion Gap 14.9 mEq/L (5-15); Blood Urea Nitrogen 32 mg/dL (7-18); Calcium 9.2 mg/dL (8.5-10.1); Carbon Dioxide 26 mmol/L (21.0-32.0); Chloride 104 mmol/L (98-107); Creatinine,Serum 1.66 mg/dL (0.70-1.30); Estimated Glomerular Filt Rate 40 ml/min (>60); GFR (African American) 49 ML/MIN (>60); Glucose 83 mg/dL (74-106); Potassium 3.9 mmoL/L (3.5-5.1); Sodium 141 mmol/L (136-145)
== END ==
PROVIDERS: Visit Provider Emergency Medicine
DX: E11.9 Type 2 diabetes mellitus without complications (principal); Z79.4 Long term (current) 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
CPT/HCPCS: 80048

== ENCOUNTER → 2019-03-01 13:40 | Outpatient (CLI) | payer MEDICARE, OTHER, SELFPAY ==
--- NOTE | 2019-03-01 13:43 | US_ITS ---
US Kidney CLINICAL INDICATION: Renal failure, decreased renal function ITS.REASON: CKD 3 ORDERING PHYSICIAN: Rogelio Albarado PATIENT AGE: 78 years Comparison: None FINDINGS: The right kidney is 11 x 4 x 4.6 cm. No hydronephrosis or renal mass. Renal cortex measures 1.2 cm. . The left kidney measures 11 x 5 x 4.4 cm. No hydronephrosis mass or perinephric fluid collection. There is unremarkable echogenicity with only minimal cortical thinning. IMPRESSION: Unremarkable bilateral renal ultrasound
== END ==
PROVIDERS: PCP Emergency Medicine; Visit Provider Internal Medicine Nephrology
DX: N18.3 Chronic kidney disease, stage 3 (moderate) (principal)
CPT/HCPCS: 76770

== ENCOUNTER → 2019-08-14 17:04 | Outpatient (CLI) | payer MEDICARE, SELFPAY ==
[2019-08-16 12:40] LABS: Creatinine, Urine 59.1 mg/dL (Not Estab.); Microalbumin, Urine 35.3 ug/mL (Not Estab.)
== END ==
PROVIDERS: Visit Provider Emergency Medicine
DX: E11.9 Type 2 diabetes mellitus without complications (principal); Z79.4 Long term (current) 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
CPT/HCPCS: 82043; 82570

== ENCOUNTER → 2019-08-16 12:45 | Outpatient (CLI) | payer MEDICARE, SELFPAY ==
--- NOTE | 2019-08-16 12:46 | CA_ITS ---
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 Study suggests 20-49% stenosis (lower end of scale) of the left internal cartoid artery unchanged from the 02/08/18 study. Antegrade flow seen bilateral vertebral arteries. Electronically signed by : Massimo Gaston MD 08/16/2019 18:48:10
== END ==
PROVIDERS: PCP Emergency Medicine; Visit Provider Physician Assistant
DX: R42 Dizziness and giddiness (principal)
CPT/HCPCS: 93880

== ENCOUNTER → 2019-10-02 13:52 | Outpatient (CLI) | payer MEDICARE, SELFPAY ==
[2019-10-02 14:17] LABS: Basophils % 0.7 % (0.1-2.0); Eosinophils # 0.2 K/mm3 (0.0-0.4); Eosinophils % 3.5 % (0.1-12.0); Hematocrit 40.1 % (42.0-52.0); Hemoglobin 12.7 g/dL (14.1-18.0); Lymphocytes % 16.5 % (10-50); Mean Corpuscular HGB Conc 31.6 g/dL (31.8-35.4); Mean Corpuscular Hemoglobin 27.1 pg (27.0-31.2); Mean Corpuscular Volume 85.8 fl (80-94); Mean Platelet Volume 7.8 fl (7.4-10.4); Monocytes # 0.3 K/mm3 (0.1-1.0); Neutrophils # 4.7 K/mm3 (1.8-7.8); Neutrophils % 74.4 % (37.0-80.0); Platelet Count 209 K/mm3 (142-424); Red Blood Count 4.67 M/mm3 (4.60-6.20); Red Cell Distribution Width 16.3 % (11.5-17.5); White Blood Count 6.3 K/mm3 (4.8-10.8)
[2019-10-02 14:28] LABS: Occult Blood,Stool Positive (Negative)
[2019-10-02 14:28] LABS: Occult Blood,Stool Negative (Negative)
[2019-10-02 14:28] LABS: Occult Blood,Stool Negative (Negative)
[2019-10-02 16:14] LABS: Ferritin 18.6 ng/ml (17.9-464)
[2019-10-04 12:18] LABS: Iron 75 ug/dL (38-169); UIBC 232 ug/dL (111-343)
[2019-10-05 08:57] LABS: Iron Saturation 24 % (15-55)
== END ==
PROVIDERS: Visit Provider Physician Assistant
DX: R19.5 Other fecal abnormalities (principal); Z86.2 Personal history of diseases of the blood and blood-forming organs and certain disorders involving the immune mechanism; Z86.39 Personal history of other endocrine, nutritional and metabolic disease
CPT/HCPCS: 36415; 82272; 82728; 83540; 83550; 85025; G0328

== ENCOUNTER → 2019-12-31 14:36 | Outpatient (CLI) | payer MEDICARE, OTHER, SELFPAY ==
--- NOTE | 2019-12-31 14:41 | XR_ITS ---
PROCEDURE: XR CHEST 2V CLINICAL HISTORY: dyspnea Heart disease, hypertension COMPARISON: CXR1 CHEST-PORTABLE from 01/13/2014 CXR2 CHEST-AP VIEW ONLY from 02/23/2017 CXR2V XR chest 2V from 08/23/2018 FINDINGS: Prior CABG. Normal heart size. There is mild prominence of the right probably vascular in nature. The lungs are free of acute infiltrate. There are degenerative changes in the thoracic spine. IMPRESSION: No acute findings. Dictated by: Massimo Gaston MD 12/31/2019 15:37 Electronically signed by Massimo Gaston MD in [place] 12/31/2019 15:37
== END ==
PROVIDERS: PCP Emergency Medicine; Visit Provider Urology
DX: R42 Dizziness and giddiness; R06.09 Other forms of dyspnea; I48.0 Paroxysmal atrial fibrillation; E66.9 Obesity, unspecified; R94.31 Abnormal electrocardiogram [ECG] [EKG]; R60.9 Edema, unspecified; E78.2 Mixed hyperlipidemia; I11.9 Hypertensive heart disease without heart failure; I25.10 Atherosclerotic heart disease of native coronary artery without angina pectoris
CPT/HCPCS: 71046

== ENCOUNTER 2020-01-11 08:56 | Day surgery (SDC) | payer MEDICARE, SELFPAY ==
[2020-01-11] VITALS (38 sets, daily range): BP systolic 125–166; BP diastolic 53–69; PULSE 50–76; RESP 16–22; TEMP 36.2–37.5; O2SAT 91–100; BMI 37.7
--- NOTE | 2020-01-11 | CA_ITS ---
APPROVED REPORT EXAM: Comprehensive 2D, Doppler, and color-flow Echocardiogram Baker Pie: Kimberly Watts RT(R) Ht: 5 ft 7 in Wt: 241lbs BSA: 2.19 BP: 145/82 mmHg Indications: post cath today 2D Dimensions LVOT 2.02 cm (M/F) 1.5-2.5 M-Mode Dimensions RVDd 3.04 cm (0.9-2.6) LVDd 4.60 cm (3.5-5.7) LVDs 3.30 cm (3.5-5.7) IVSd 0.98 cm (0.6-1.1) PWd 1.03 cm (0.6-1.1) EF (Teich) 54.70% FS 28.30% EDV (Teich) 97.30 mL ESV (Teich) 44.10 mL Left Ventricle Left atrium is mildly enlarged, left ventricle is normal size, mild concentric left ventricular hypertrophy, visually estimated ejection fraction 55% with no regional wall motion abnormality. Diastolic parameters are inconclusive. Right Ventricle Right atrium and right ventricle are mildly enlarged with normal contractility. Aortic Valve Aortic valve is minimally thickened and fibrosed. There is no aortic stenosis aortic insufficiency. Mitral Valve Mitral valve leaflets are minimally thickened, there is no mitral stenosis, there is mild mitral regurgitation. Tricuspid Valve Tricuspid valve leaflets are minimally thickened, there is mild tricuspid regurgitation. Tricuspid regurgitation jet velocity is inadequate for calculation of the right ventricular systolic pressure. Pulmonic Valve Pulmonic valve is poorly visualized. Great Vessels Aortic root is normal size. Pericardium There is anterior echo-free space seen, there is no significant pericardial effusion noted. Conclusion 1. Mild biatrial alignment, normal left ventricular size, mild concentric left ventricular hypertrophy, visually estimated ejection fraction 55% with no regional wall motion abnormality, diastolic parameters are inconclusive. 2. Mildly enlarged right ventricle with normal contractility. 3. Mild mitral and tricuspid regurgitation. 4. There is anterior echo-free space, there is no significant pericardial effusion noted. Electronically signed by : Shane Degroot, 01/13/2020 20:04:36
--- NOTE | 2020-01-11 09:01 | CA_ITS ---
APPROVED REPORT EXAM: Comprehensive 2D, Doppler, and color-flow Echocardiogram [address] Reporter: Rajni Hernandez RDCS Ht: 5 ft 7 in Wt: 218lbs BSA: 2.10 BP: 130/65 mmHg Indications: SOA CAD 2D Dimensions LVOT 1.68 cm (M/F) 1.5-2.5 M-Mode Dimensions RVDd 3.56 cm (0.9-2.6) LVDd 5.43 cm (3.5-5.7) LVDs 3.73 cm (3.5-5.7) IVSd 0.76 cm (0.6-1.1) PWd 0.89 cm (0.6-1.1) EF (Teich) 58.60% FS 31.30% EDV (Teich) 143.10 mL ESV (Teich) 59.30 mL LV Diastology E/A Ratio 0.81 Mitral Valve MV A Velocity 96.00 (40-130 cm/s) Left Ventricle Left atrium is mildly enlarged, left ventricle is normal size, mild concentric left ventricular hypertrophy, visually estimated ejection fraction 50% with no regional wall motion abnormality, grade 1 diastolic dysfunction seen without tissue Doppler evidence of raise left atrial pressure. Right Ventricle Right atrium and right ventricle mildly enlarged with normal contractility. Aortic Valve Aortic valve is minimally thickened and fibrosed, there is no aortic stenosis or aortic insufficiency. Mitral Valve Mitral valve is grossly normal, there is mild mitral regurgitation. Tricuspid Valve Tricuspid valve is grossly normal, there is mild tricuspid regurgitation, tricuspid regurgitation jet velocity is inadequate for calculation of the right ventricular systolic pressure. Pulmonic Valve Pulmonic valve is poorly visualized. Great Vessels Aortic root is normal size. Pericardium No significant pericardial effusion noted. Conclusion 1. Mild biatrial enlargement, normal left ventricular size, mild concentric left ventricular hypertrophy, visually estimated ejection fraction 50% with no regional wall motion abnormality, grade 1 diastolic dysfunction seen without tissue Doppler evidence of raise left atrial pressure. 2. Mildly enlarged right ventricle with normal contractility. 3. Mild mitral and tricuspid regurgitation. 4. No significant pericardial effusion noted. Electronically signed by : Shane Degroot, 01/11/2020 09:59:28
[2020-01-11 09:56] LABS: Basophils % 0.6 % (0.1-2.0); Chloride 110 mmol/L (98-107); Eosinophils # 0.3 K/mm3 (0.0-0.4); Eosinophils % 4.9 % (0.1-12.0); Hemoglobin 12.8 g/dL (14.1-18.0); Lymphocytes # 1.5 K/mm3 (0.7-4.5); Lymphocytes % 23.3 % (10-50); Mean Corpuscular HGB Conc 32.9 g/dL (31.8-35.4); Mean Corpuscular Hemoglobin 28.6 pg (27.0-31.2); Mean Platelet Volume 7.4 fl (7.4-10.4); Monocytes # 0.4 K/mm3 (0.1-1.0); Monocytes % 5.6 % (1.7-9.3); Neutrophils # 4.3 K/mm3 (1.8-7.8); Neutrophils % 65.6 % (37.0-80.0); Platelet Count 201 K/mm3 (142-424); Red Blood Count 4.49 M/mm3 (4.60-6.20); Red Cell Distribution Width 16.5 % (11.5-17.5); Sodium 141 mmol/L (136-145); White Blood Count 6.5 K/mm3 (4.8-10.8)
[2020-01-11 09:57] LABS: Potassium 3.6 mmoL/L (3.5-5.1)
[2020-01-11 09:59] LABS: Blood Urea Nitrogen 20 mg/dl (9-20); Creatinine Clearance Estimated 87 mL/min (50-200); Estimated Glomerular Filt Rate 65 ml/min (>60); GFR (African American) 79 ML/MIN (>60)
[2020-01-11 10:00] LABS: Anion Gap 9.6 mEq/L (5-15); Calcium 8.7 mg/dl (8.4-10.2); Carbon Dioxide 25 mmol/L (22.0-30.0); Glucose 54 mg/dl (74-100)
--- NOTE | 2020-01-11 11:00 | IR_ITS ---
APPROVED REPORT Patient Location: Outpatient PROCEDURES Left heart catheterization Left ventriculogram Selective coronary angiogram Left internal mammary angiography Selective engagement of the saphenous vein graft to the circumflex artery Selective engagement of the saphenous vein graft to the right coronary Stent deployment to the distal dominant right coronary INDICATION Coronary artery disease, History of coronary bypass surgery, Angina pectoris Informed consent was obtained prior to the procedure. COMPLICATIONS NONE Estimated Blood Loss: LESS THAN 10 ML TECHNIQUE One percent lidocaine used to anesthetize the right groin. The right femoral artery was accessed via the Seldinger technique and a 5 Somali sheath was placed in the right femoral artery. A JL 4, JR4 catheter were used to perform left heart catheterization, left ventriculogram selective coronary angiography as well as selective engagement of the 2 vein grafts and nonselective angiography of the left internal mammary artery. There was abnormal flow down the saphenous vein graft to the right coronary artery. Because of this abnormal, effectively CELE II flow, it was felt this was likely the etiology for patient's angina pectoris. Patient had a focal relatively severe stenosis in the [place] right coronary artery which was easily amenable to solitary stent placement and revascularization and based on the age of patient's vein graft, his age with antecedent comorbidities, slow flow down the vein graft, and symptoms, it was felt this particular patient would benefit from [place] coronary artery revascularization. Because of this therapeutic heparin was administered giving a therapeutic ACT and a JR4 guide catheter was used to intubate the right coronary artery. A BMW wire was placed distally however primary stenting cannot be performed therefore a 2.5 x 15 mm noncompliant balloon was deployed at 15 daren reducing the stenosis. This allowed placement of a 2.75 x 22 mm resolute marvin stent at 14 daren. This reduced the stenosis and significantly improved flow down the [place] circulation with excellent antegrade flow down both the posterior descending artery and large posterior lateral ventricular branch. After achieving excellent angiographic results with CELE-3 flow the apparatus was removed the groin was reprepped gloves were changed sheath was removed 2 different Perclose devices were used the first 1 did not appropriately capture the artery while the second Perclose device felt like an abnormal high resistant deployment therefore a 6 Somali sheath was placed back over the wire and into the [place] vessel and the Perclose suture was removed entirely from the artery. Repeat angiography demonstrated there was relatively slow flow down the superficial femoral artery which was not present during initial angiography which was unfortunately not saved and only performed under fluoroscopy. The slow flow down the SFA was believed secondary to 6 Somali sheath obturation. The patient was transferred to the postop holding area with specific attention being given to the right leg to make sure patient is adequately revascularized ANGIOGRAPHIC RESULTS The left main artery Is small caliber yet without atherosclerotic plaque The left anterior descending artery Is a small caliber vessel and has proximal 30 to 40% stenosis mid vessel 30% stenosis with competitive flow from the left internal mammary artery. Distally the vessel has diffuse 40% stenoses The circumflex artery Is nondominant and occluded after a small to medium first obtuse marginal artery and small second obtuse marginal artery The right coronary artery Is a dominant vessel and has proximal and mid
[2020-01-11 14:10] LABS: CATHL Activated Clotting Time 359 SEC (74-125)
--- NOTE | 2020-01-11 14:56 | CA_ITS ---
APPROVED REPORT Chimney Repairer: Rajni Hernandez RDCS Indications R/O PSEUDO RIGHT GROIN POST ANGIOGRAM HEMATOMA Findings NO EVIDENCE OF PSEUDOANEURYSM OF RIGHT GROIN Conclusion NO EVIDENCE OF PSEUDOANEURYSM OR AV FISTULA OF RIGHT GROIN Electronically signed by : Massimo Gaston MD 01/11/2020 17:34:33
[2020-01-11 17:03] LABS: POC Glucose,Bedside 75 (70-110)
--- NOTE | 2020-01-11 17:59 | PC.NURSE ---
PATIENT ARRIVED ON FLOOR AT 1530. SUPINE WITH SANDBAG OVER RIGHT FEMORAL. LEFT PEDAL PULSE WEAK. BACTERIOLOGIST PHARMACEUTICAL RN RAFAL AWARE. FSBS 50. THIS RN HAD PATIENT DRINK 2 ORANGE JUICES. NEXT FSBS WAS 75. PATIENT HAS REMAINED SUPINE AND COOPERATIVE. AT BEDSIDE. PATIENT IS ASLEEP, PATIENT WILL WAKE WHEN ADDRESSED BY NAME. LUNGS ARE DIMINISHED, BUE PULSES EQUAL, BILATERAL FEMORAL PULSES EQUAL, LEFT PEDAL PULSE WEAK, RIGHT PEDAL PULSE STRONG. NO OTHER CONCERNS AT THIS TIME.
--- NOTE | 2020-01-11 19:10 | PC.NURSE ---
report given to harry
[2020-01-11 20:39] LABS: POC Glucose,Bedside 50 (70-110)
--- NOTE | 2020-01-11 21:43 | PC.NURSE ---
Pt's room air sat at rest = 90%.
[2020-01-11 22:43] LABS: POC Glucose,Bedside 115 (70-110)
[2020-01-12] VITALS: BP 185/89; PULSE 60; PULSE 69; RESP 16; TEMP 37.3; O2SAT 95
[2020-01-12 04:00] VITALS: BP 184/78; PULSE 70; RESP 16; TEMP 37.2; O2SAT 96
--- NOTE | 2020-01-12 04:24 | PC.NURSE ---
0400 right femoral vascular access site dressing cdi. bruising noted medial and lateral to dressing. medial to site is edematous and tender to palpation. pulses palpable and strong.
[2020-01-12 05:00] VITALS: BMI 35.6
[2020-01-12 06:11] LABS: POC Glucose,Bedside 157 (70-110)
[2020-01-12 06:56] LABS: Basophils % 0.5 % (0.1-2.0); Eosinophils # 0.2 K/mm3 (0.0-0.4); Eosinophils % 2.5 % (0.1-12.0); Hematocrit 37.3 % (42.0-52.0); Hemoglobin 12.3 g/dL (14.1-18.0); Lymphocytes # 1.2 K/mm3 (0.7-4.5); Lymphocytes % 14.7 % (10-50); Mean Corpuscular HGB Conc 32.9 g/dL (31.8-35.4); Mean Corpuscular Hemoglobin 28.2 pg (27.0-31.2); Mean Corpuscular Volume 85.8 fl (80-94); Mean Platelet Volume 7.8 fl (7.4-10.4); Monocytes # 0.5 K/mm3 (0.1-1.0); Monocytes % 5.9 % (1.7-9.3); Neutrophils # 6.3 K/mm3 (1.8-7.8); Neutrophils % 76.3 % (37.0-80.0); Platelet Count 190 K/mm3 (142-424); Red Blood Count 4.35 M/mm3 (4.60-6.20); Red Cell Distribution Width 16.3 % (11.5-17.5); White Blood Count 8.3 K/mm3 (4.8-10.8)
[2020-01-12 07:05] LABS: Chloride 109 mmol/L (98-107); Potassium 5.1 mmoL/L (3.5-5.1); Sodium 140 mmol/L (136-145)
[2020-01-12 07:08] LABS: Anion Gap 9.1 mEq/L (5-15); Blood Urea Nitrogen 14 mg/dl (9-20); Calcium 8.6 mg/dl (8.4-10.2); Carbon Dioxide 27 mmol/L (22.0-30.0); Creatinine Clearance Estimated 85 mL/min (50-200); Estimated Glomerular Filt Rate 65 ml/min (>60); GFR (African American) 79 ML/MIN (>60); Glucose 162 mg/dl (74-100)
[2020-01-12 08:00] VITALS: BP 164/77; PULSE 75; RESP 18; TEMP 37.2; O2SAT 93
--- NOTE | 2020-01-12 10:59 | HMH.PHACLD ---
Jarrett Pemberton has received discharge medication counseling on the following medications: PATIENT CURRENTLY TAKING LISINOPRIL 5 MG DAILY, METOPROLOL TARTRATE 25 MG BID, CLOPIDOGREL 75 MG DAILY, AND ROSUVASTATIN 40 MG HS. MD STARTING ASPIRIN 81 MG DAILY. PATIENT INDICATED ONE OF HIS MD'S TOOK HIM OFF ASPIRIN RECENTLY DUE TO LIKELY GI BLEED. WILL FOLLOW UP WITH CARDIOLOGY OFFICE ON TUESDAY.
[2020-01-14 08:45] LABS: POC Glucose,Bedside 44 (70-110)
[2020-05-13 09:27] LABS: CATHL Activated Clotting Time 170 SEC (74-125)
== END 2020-01-12 09:15 | disposition home or self-care (01) ==
LOC: CATHLAB 08:57 → 2ND 14:25
PROVIDERS: PCP Emergency Medicine; Visit Provider Internal Medicine
DX: E66.9 Obesity, unspecified (principal); E78.2 Mixed hyperlipidemia; I11.9 Hypertensive heart disease without heart failure; I48.0 Paroxysmal atrial fibrillation; I67.2 Cerebral atherosclerosis; I25.118 Atherosclerotic heart disease of native coronary artery with other forms of angina pectoris; Z87.891 Personal history of nicotine dependence; Z95.1 Presence of aortocoronary bypass graft; E78.5 Hyperlipidemia, unspecified; Z79.899 Other long term (current) drug therapy; Z79.4 Long term (current) 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; Z88.2 Allergy status to sulfonamides; Z88.5 Allergy status to narcotic agent; E11.42 Type 2 diabetes mellitus with diabetic polyneuropathy; R06.09 Other forms of dyspnea; M79.662 Pain in left lower leg; M79.661 Pain in right lower leg; E11.59 Type 2 diabetes mellitus with other circulatory complications
CPT/HCPCS: 36415; 80048; 82962; 85025; 85347; 92928; 93306; 93459; 93926; 94761; 99152; C1725; C1760; C1769; C1876; C1894; C9600; J1644; J2720; Q9967

== ENCOUNTER 2020-01-29 14:59 | Outpatient (RCR) | payer MEDICARE, SELFPAY | END 2020-05-08 13:43 | disposition home or self-care (01) | LOC: PT 14:59 | PROVIDERS: Visit Provider Internal Medicine | DX: Z95.5 Presence of coronary angioplasty implant and graft (principal) | CPT/HCPCS: 93798 ==

== ENCOUNTER → 2020-02-08 11:23 | Outpatient (CLI) | payer MEDICARE, SELFPAY ==
--- NOTE | 2020-02-08 11:25 | CA_ITS ---
APPROVED REPORT Condominium Property Manager: Kimberly Watts RT(R) Indications Leg Pain Patient had a heart cath 01/11/20. He states he's had extensive right leg pain since the cath with it worsening in the last few days. He says the pain starts in the calf and radiates up to hip. Most hip pain and numbness is on the lateral aspect of thigh. No bruising or knot present today in groin. Findings Groin: Right Negative Findings No evidence of pseudoaneurysm, hematoma, or AV fistula of the right groin. Conclusion No evidence of pseudoaneurysm, hematoma, or AV fistula of the right groin. Electronically signed by : Massimo Gaston MD 02/08/2020 17:41:17
== END ==
PROVIDERS: PCP Emergency Medicine; Visit Provider Physician Assistant
DX: I73.9 Peripheral vascular disease, unspecified (principal); R10.31 Right lower quadrant pain
CPT/HCPCS: 93926

== ENCOUNTER 2020-02-27 08:18 | Day surgery (SDC) | payer MEDICARE, SELFPAY ==
[2020-02-27] VITALS (17 sets, daily range): BP systolic 100–159; BP diastolic 45–68; PULSE 55–73; RESP 15–18; TEMP 36.5; O2SAT 88–99; BMI 37.4
[2020-02-27 09:04] LABS: Basophils % 0.4 % (0.1-2.0); Eosinophils # 0.3 K/mm3 (0.0-0.4); Eosinophils % 3.7 % (0.1-12.0); Hematocrit 36.9 % (42.0-52.0); Lymphocytes # 1.9 K/mm3 (0.7-4.5); Lymphocytes % 24.4 % (10-50); Mean Corpuscular HGB Conc 32.6 g/dL (31.8-35.4); Mean Corpuscular Hemoglobin 28.5 pg (27.0-31.2); Mean Corpuscular Volume 87.4 fl (80-94); Mean Platelet Volume 7.6 fl (7.4-10.4); Monocytes # 0.4 K/mm3 (0.1-1.0); Monocytes % 4.8 % (1.7-9.3); Neutrophils # 5.2 K/mm3 (1.8-7.8); Neutrophils % 66.8 % (37.0-80.0); Platelet Count 207 K/mm3 (142-424); Red Blood Count 4.22 M/mm3 (4.60-6.20); White Blood Count 7.8 K/mm3 (4.8-10.8)
[2020-02-27 09:35] LABS: Chloride 104 mmol/L (98-107); Potassium 3.8 mmoL/L (3.5-5.1); Sodium 141 mmol/L (136-145)
[2020-02-27 09:38] LABS: Anion Gap 13.8 mEq/L (5-15); Blood Urea Nitrogen 23 mg/dl (9-20); Carbon Dioxide 27 mmol/L (22.0-30.0); Creatinine Clearance Estimated 63 mL/min (50-200); Estimated Glomerular Filt Rate 45 ml/min (>60); GFR (African American) 55 ML/MIN (>60)
[2020-02-27 09:40] LABS: Glucose 47 mg/dl (74-100)
[2020-02-27 09:52] LABS: POC Glucose,Bedside 55 (70-110)
--- NOTE | 2020-02-27 10:52 | SUR.PREOP ---
notified phycisian of critical lab values
--- NOTE | 2020-02-27 12:45 | IR_ITS ---
APPROVED REPORT Patient Location: Outpatient Deposit Clerk: SHERI Puentes RT (R) PROCEDURES Catheter placed in the abdominal aorta Bilateral iliofemoral runoff INDICATION Abnormal RICH, Claudication Informed consent was obtained prior to the procedure. COMPLICATIONS NONE Estimated Blood Loss: LESS THAN 10 ML TECHNIQUE 1% lidocaine used to anesthetize the left femoral groin. The left femoral artery was accessed via the Seldinger technique and a 5 Georgian sheath was placed in the left common femoral artery. Pigtail catheter was advanced and bilateral iliofemoral runoff was performed. At the end of the procedure the apparatus was removed the patient was transferred to the postop holding area stable condition for sheath removal ANGIOGRAPHIC RESULTS The infrarenal abdominal aorta is mildly atheromatous with no focal stenosis greater than 20%. The bilateral common internal and external iliac arteries are mildly atheromatous with tzc-nhzx-tjxzdlyk plaque. The bilateral common femoral arteries are normal. The bilateral profunda femoris arteries are normal. The bilateral superficial femoral arteries have mild atheromatous plaque with no stenosis greater than 30 to 40%. These extend down into the popliteal arteries which also have 40% stenoses. The right leg has atheromatous plaque in the proximal portion of the distal 3 vessels. There is two-vessel runoff below the knee bilaterally IMPRESSION Infrageniculate disease which is not the etiology for patient's symptomatology [id number] peripheral artery disease as described above PLAN 1. Medical management 2. Nonvascular evaluation of symptomatology Electronically signed by : Jaquan Aly, 02/27/2020 14:49:03
[2020-02-29 08:46] LABS: POC Glucose,Bedside 51 (70-110)
== END 2020-02-27 15:02 | disposition home or self-care (01) ==
LOC: CATHLAB 08:20
PROVIDERS: PCP Emergency Medicine; Visit Provider Internal Medicine
DX: I70.223 Atherosclerosis of native arteries of extremities with rest pain, bilateral legs (principal); E78.5 Hyperlipidemia, unspecified; I10 Essential (primary) hypertension; I11.9 Hypertensive heart disease without heart failure; I25.10 Atherosclerotic heart disease of native coronary artery without angina pectoris; I48.0 Paroxysmal atrial fibrillation; I67.2 Cerebral atherosclerosis; R06.00 Dyspnea, unspecified; R60.9 Edema, unspecified; Z95.1 Presence of aortocoronary bypass graft; Z79.01 Long term (current) use of anticoagulants; Z88.8 Allergy status to other drugs, medicaments and biological substances; Z88.2 Allergy status to sulfonamides; Z79.4 Long term (current) 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; I25.118 Atherosclerotic heart disease of native coronary artery with other forms of angina pectoris; Z79.899 Other long term (current) drug therapy; I77.1 Stricture of artery
CPT/HCPCS: 36247; 75716; 80048; 82962; 85025; 99152; C1725; C1769; C1894; J1644; J2405; Q9966

== ENCOUNTER 2020-10-11 19:54 | Emergency (ER) | payer MEDICARE, OTHER, SELFPAY ==
[2020-10-11] VITALS (7 sets, daily range): BP systolic 107–136; BP diastolic 43–75; PULSE 56–68; RESP 14–20; TEMP 36.5–36.6; O2SAT 94–98; BMI 37.2
--- NOTE | 2020-10-11 20:03 | ECG_ITS ---
APPROVED REPORT Exam: Resting ECG HR:61 bpm ECG Measurements Heart Rate 61 AXES IA 142 P QRSd 138 QRS 71 QT 442 T 212 QTc 444 Conclusion Normal sinus rhythm Left bundle branch block Abnormal ECG Electronically signed by : Rom Brady, 10/12/2020 07:42:01
--- NOTE | 2020-10-11 20:10 | XR_ITS ---
PROCEDURE: XR CHEST 2V CLINICAL HISTORY: weakness Pain COMPARISON: CR CXR2 CHEST-AP VIEW ONLY from 02/23/2017 CR CXR2V XR chest 2V from 08/23/2018 CR XR CHEST 2V from 12/31/2019 FINDINGS: Prior CABG. No evidence of CHF. Normal heart size. The lungs are clear without infiltrates, suspicious nodules, or pleural effusions. Degenerative changes thoracic spine. IMPRESSION: No acute findings. Dictated by: Massimo Gaston MD 10/12/2020 08:01 Massimo Gaston MD in [facility] 10/12/2020 08:01
--- NOTE | 2020-10-11 20:10 | CT_ITS ---
PROCEDURE: CT HEAD/BRAIN WO CON CLINICAL INDICATION: weakness Right leg numbness, history of prostate cancer COMPARISON: No exams were available for comparison TECHNIQUE: Axial images obtained. All CT scans at the facility use one or more dose reduction, viz: automated exposure control, ma/kV adjustment per patient size (including targeted exams where dose is matched to indication, i.e. head), or iterative reconstruction technique. FINDINGS: No midline shift, mass effect, intracranial hemorrhage, hydrocephalus, or extra-axial fluid collection is evident. There is generalized atrophy with hypoattenuation of the periventricular white matter consistent with microangiopathic changes.. There is an old lacunar infarction in the right putamen. Model decreased density is present in the vertex of the skull on the right and may be due to a hemangioma. No mastoid effusion. No sinus air-fluid level. IMPRESSION: No acute intracranial finding Dictated by: Massimo Gaston MD 10/12/2020 08:41 Massimo Gaston MD in [facility] 10/12/2020 08:41
--- NOTE | 2020-10-11 20:20 | PC.NURSE ---
Finger stick of 236.
--- NOTE | 2020-10-11 20:28 | CT_ITS ---
PROCEDURE: CT LUMBAR SPINE WO CON CLINICAL HISTORY: Back pain Right leg numbness COMPARISON: No exams were available for comparison TECHNIQUE: Axial images obtained with sagittal and coronal reformats. All CT scans at the facility use one or more dose reduction, viz: automated exposure control, ma/kV adjustment per patient size (including targeted exams where dose is matched to indication, i.e. head), or iterative reconstruction technique. FINDINGS: There is normal alignment. No acute fracture or dislocation. Bulging disc is present at L4-5 with some central disc protrusion along with facet ligamentum hypertrophy with canal stenosis and bilateral lateral recess and foraminal narrowing. There is mild bulging disc also at L5-S1. Bridging osteophytes are present anteriorly involving the left SI joint. Vascular stent is present within the right external iliac artery. Surgical clips are present in the right inguinal region. Colonic diverticulosis noted of the sigmoid colon. There is a Blackmon catheter present. IMPRESSION: No acute fracture. Lumbar spondylosis as detailed above with canal stenosis and bilateral lateral recess and foraminal narrowing at L4-5. Please see above for details. Dictated by: Massimo Gaston MD 10/12/2020 08:45 Massimo Gaston MD in [facility] 10/12/2020 08:45
[2020-10-11 20:33] LABS: Basophils % 0.6 % (0.1-2.0); Eosinophils # 0.3 K/mm3 (0.0-0.4); Eosinophils % 4.6 % (0.1-12.0); Hematocrit 34.4 % (42.0-52.0); Hemoglobin 11.1 g/dL (14.1-18.0); Lymphocytes # 1.3 K/mm3 (0.7-4.5); Lymphocytes % 17.5 % (10-50); Mean Corpuscular HGB Conc 32.3 g/dL (31.8-35.4); Mean Corpuscular Hemoglobin 29.6 pg (27.0-31.2); Mean Corpuscular Volume 91.7 fl (80-94); Monocytes # 0.4 K/mm3 (0.1-1.0); Monocytes % 5.2 % (1.7-9.3); Neutrophils # 5.4 K/mm3 (1.8-7.8); Neutrophils % 72.2 % (37.0-80.0); Platelet Count 206 K/mm3 (142-424); Red Blood Count 3.75 M/mm3 (4.60-6.20); Red Cell Distribution Width 16.9 % (11.5-17.5); White Blood Count 7.4 K/mm3 (4.8-10.8)
[2020-10-11 20:43] LABS: Alanine Aminotransferase 18 U/L (12-78); Albumin Level 4.5 g/dl (3.5-5.0); Alkaline Phosphatase 77 U/L (38-126); Anion Gap 18.3 mEq/L (5-15); Aspartate Amino Transferase 30 U/L (17-59); Bilirubin,Direct 0.1 mg/dl (0.0-0.4); Bilirubin,Indirect 0.3 mg/dL (0.0-0.9); Bilirubin,Total 0.4 mg/dl (0.2-1.3); Bilirubin,Unconjugated 0.3 mg/dL (0.0-1.1); Blood Urea Nitrogen 62 mg/dl (9-20); Carbon Dioxide 22 mmol/L (22.0-30.0); Chloride 102 mmol/L (98-107); Creatinine Clearance Estimated 33 mL/min (50-200); Estimated Glomerular Filt Rate 21 ml/min (>60); GFR (African American) 26 ML/MIN (>60); Glucose 233 mg/dl (74-100); Potassium 5.3 mmoL/L (3.5-5.1); Sodium 137 mmol/L (136-145); Total Protein,Serum 7.4 g/dl (6.3-8.2)
[2020-10-11 20:49] LABS: C-Reactive Protein 8.1 mg/L (0-4)
[2020-10-11 20:58] LABS: NT Pro Brain Natriuretic Pep. 693 pg/mL (0-450)
[2020-10-11 21:01] LABS: Troponin I < 0.01 ng/ml (0.00-0.034)
[2020-10-11 21:03] LABS: Procalcitonin 0.276 ng/mL (0.0-2.0)
[2020-10-11 21:05] LABS: Adenovirus,PCR Not Detected (NotDetected); Bordetella Pertussis Not Detected (NotDetected); Chlamydophila Pneumoniae, PCR Not Detected (NotDetected); Coronavirus 19, PCR Not Detected (NotDetected); Coronavirus 229E Not Detected (NotDetected); Coronavirus NL63 Not Detected (NotDetected); Coronavirus OC43 Not Detected (NotDetected); Coronovirus HKU1,PCR Not Detected (NotDetected); Human Metapneumovirus Not Detected (NotDetected); Influenza A, PCR Not Detected (NotDetected); Influenza AH1, 2009 Not Detected (NotDetected); Influenza AH1, PCR Not Detected (NotDetected); Influenza AH3,PCR Not Detected (NotDetected); Influenza B, PCR Not Detected (NotDetected); Mycoplasma Pneumoniae, PCR Not Detected (NotDetected); Parainfluenza 1, PCR Not Detected (NotDetected); Parainfluenza 2, PCR Not Detected (NotDetected); Parainfluenza 3, PCR Not Detected (NotDetected); Parainfluenza 4, PCR Not Detected (NotDetected); Respiratory Syncytial Virus Not Detected (NotDetected); Rhinovirus/Enterovirus Not Detected (NotDetected)
[2020-10-11 21:08] LABS: Hemoglobin A1C 8.5 % (4.0-6.0)
[2020-10-11 21:19] LABS: Erythrocyte Sedimentation Rate 73 mm/hr (0-20)
--- NOTE | 2020-10-11 21:20 | HMH.EDWEAK ---
ED Disposition Clinical Impression: Hx of CABG, Left bundle branch block (LBBB), Obesity (BMI 30-39.9), ERMA (acute kidney injury) Diastolic CHF Qualifiers: Heart failure chronicity: acute on chronic Qualified Code(s): I50.33 - Acute on chronic diastolic (congestive) heart failure CAD (coronary artery disease) Qualifiers: Coronary Disease-Associated Artery/Lesion type: ambler artery [place] vs. transplanted heart: ambler heart Associated angina: with unspecified angina Qualified Code(s): I25.119 - Atherosclerotic heart disease of ambler coronary artery with unspecified angina pectoris Diabetes mellitus Qualifiers: Diabetes mellitus type: type 1 Diabetes mellitus complication status: with other specified complication Qualified Code(s): E10.69 - Type 1 diabetes mellitus with other specified complication Disposition: Xfer Short-Term Hosp Condition on Discharge: Good Referrals: Duncan Heard MD [Primary Care Provider] - Forms: Transfer Record - ED - Critical Care Critical Care Time: No Attestation: On 10/11/20, the high probability of a clinically significant, sudden or life threatening deterioration of the following system(s) required my full and direct attention, intervention and personal management. The time I documented below is in addition to time spent performing reported procedures but includes the following listed in this critical care notation. Medical Decision Making - Medical Records Medical records reviewed: Yes: I reviewed the patient's medical records. - Bill Inquiry Pt receiving controlled substance: No Vital Signs: 10/11/20 20:03 10/11/20 20:26 10/11/20 21:54 Temperature 97.7 F Temperature Source Oral Pulse Rate [Right Brachial] 68 64 58 L Respiratory Rate 16 16 Blood Pressure [Right Arm] 128/73 128/47 L 107/56 L Blood Pressure Mean [Right Arm] 91 74 73 Blood Pressure Source [Right Arm] Automatic Cuff Automatic Cuff Automatic Cuff Blood Pressure Position [Right Arm] Sitting Supine 02 Sat by Pulse Oximetry 94 L 95 96 Oxygen Delivery Method Room Air Room Air Room Air - Lab Data Lab results reviewed: Yes: I reviewed the patient's lab results. Lab Results 10/11/20 20:22: WBC 7.4, RBC 3.75 L, Hgb 11.1 L, Hct 34.4 L, MCV 91.7, MCH 29.6, MCHC 32.3, RDW 16.9, Plt Count 206, MPV 8.0, Neut % (Auto) 72.2, Lymph % (Auto) 17.5, Todd % (Auto) 5.2, Eos % (Auto) 4.6, Baso % (Auto) 0.6, Neut # (Auto) 5.4, Lymph # (Auto) 1.3, Todd # (Auto) 0.4, Eos # (Auto) 0.3, Baso # (Auto) 0.0, ESR 73 H 10/11/20 20:22: Sodium 137, Potassium 5.3 H, Chloride 102, Carbon Dioxide 22, Anion Gap 18.3 H, BUN 62 H, Creatinine 2.90 H, Estimated Creat Clear 33, Estimated GFR 21 L, Est GFR ( Amer) 26 L, Glucose 233 H, Calcium 9.0, Total Bilirubin 0.4, Direct Bilirubin 0.1, Conjugated Bilirubin 0.0, Indirect Bilirubin 0.3, Unconjugated Bilirubin 0.3, AST 30, ALT 18, Alkaline Phosphatase 77, C-Reactive Protein 8.1 H, Total Protein 7.4, Albumin 4.5, Procalcitonin 0.276 10/11/20 20:22: Hemoglobin A1c 8.5 H 10/11/20 20:22: Troponin I < 0.01, NT-Pro-B Natriuret Pep 693 H 10/11/20 20:22: Acetone Level None detected 10/11/20 21:10: O2 % 2, ABG pH 7.47 H, ABG pCO2 28.2 L, ABG pO2 71.3 L, ABG HCO3 20.0 L, ABG Total CO2 20.8 L, ABG O2 Saturation 94, ABG Base Excess -3.7 L Result diagrams: 10/11/20 20:22 10/11/20 20:22 Orders (Tests/Meds): ED MEDICATIONS Generic Name Dose Route Start Last Admin Trade Name Freq PRN Reason Stop Dose Admin Sodium Chloride 1,000 mls @ 999 mls/hr 10/11/20 20:15 10/11/20 20:29 Sod Chlor 0.9% 1000ml Bag IV 10/11/20 21:15 999 mls/hr .Q1H1M MARYAN Administration ORDERS Category Date Time Status CT head/brain wo con Stat Cat Scan 10/11/20 20:[address] lumbar spine wo con Stat Cat Scan 10/11/20 20:28 Taken XR chest 2V Stat Exams 10/11/20 20:10 Taken Full Resp Panel w/COVID ([facility]) Routine Lab 10/11/20 20:30 Received Troponin I Q3H Lab 10/11/20 23:30 Ordered Troponin I Q
[2020-10-11 21:32] LABS: Acetone, Serum (Rapid) None Detected (None Detect)
--- NOTE | 2020-10-11 21:49 | PC.NURSE ---
Orquidea speaking with BARRY at this time.
--- NOTE | 2020-10-11 22:00 | PC.NURSE ---
[facility] will call back when MD available
--- NOTE | 2020-10-11 22:09 | PC.NURSE ---
received call back from mayer with [facility]: dr wisdom speaking with dr perry vee.
--- NOTE | 2020-10-11 22:19 | PC.NURSE ---
[facility] by
[2020-10-11 22:27] LABS: Microscopic, Urine URINE MICROSCOPIC (MICROSCOPIC)
[2020-10-11 22:35] LABS: Appearance,Urine CLEAR (Clear); Bilirubin,Urine Negative (Negative); Blood, Urine Negative (Negative); Color,Urine YELLOW (Yellow); Glucose,Urine (UA) Negative (Negative); Ketones,Urine Negative (Negative); Leukocyte Esterase,Urine Negative (Negative); Nitrate,Urine Negative (Negative); Protein,Urine Negative (Negative); Specific Gravity, Urine 1.015 (1.005-1.030); Urobilinogen,Urine 0.2 EU/dl (0.2)
[2020-10-11 22:38] LABS: Squamous Epithelial Cell,Urine Occasional #/hpf (0-5); WBC,Urine Occasional #/hpf (0-3)
--- NOTE | 2020-10-11 23:20 | PC.NURSE ---
attempted to call report at this time. unable to take report at this time.
[2020-10-13 08:35] LABS: POC Glucose,Bedside 236 (70-110)
== END 2020-10-12 00:02 | disposition short-term general hospital (02) ==
PROVIDERS: Emergency Provider Emergency Medicine; PCP Emergency Medicine
DX: I50.33 Acute on chronic diastolic (congestive) heart failure (principal); N17.9 Acute kidney failure, unspecified; I25.119 Atherosclerotic heart disease of native coronary artery with unspecified angina pectoris; E10.69 Type 1 diabetes mellitus with other specified complication; Z20.822 Contact with and (suspected) exposure to COVID-19; I48.91 Unspecified atrial fibrillation; Z88.2 Allergy status to sulfonamides; Z88.5 Allergy status to narcotic agent; Z79.899 Other long term (current) drug therapy
CPT/HCPCS: 70450; 71046; 72131; 80048; 80076; 81001; 82009; 82803; 82962; 83036; 83880; 84145; 84484; 85025; 85651; 86140; 87581; 87633; 87798; 93005; 96365; 96366; 99285

== ENCOUNTER → 2020-10-20 17:41 | Outpatient (CLI) | payer MEDICARE, OTHER, SELFPAY ==
[2020-10-20 18:54] LABS: Alanine Aminotransferase 18 U/L (12-78); Albumin Level 3.7 g/dl (3.5-5.0); Albumin/Globulin Ratio 1.6 (1.1-1.8); Alkaline Phosphatase 76 U/L (38-126); Anion Gap 13.3 mEq/L (5-15); Aspartate Amino Transferase 23 U/L (17-59); Bilirubin,Total 0.4 mg/dl (0.2-1.3); Blood Urea Nitrogen 30 mg/dl (9-20); Calcium 8.6 mg/dl (8.4-10.2); Carbon Dioxide 20 mmol/L (22.0-30.0); Chloride 108 mmol/L (98-107); Estimated Glomerular Filt Rate 42 ml/min (>60); GFR (African American) 51 ML/MIN (>60); Globulin 2.3 g/dL (1.3-3.2); Glucose 220 mg/dl (74-100); Potassium 4.3 mmoL/L (3.5-5.1); Sodium 137 mmol/L (136-145)
== END ==
PROVIDERS: Visit Provider Family Medicine
DX: N17.9 Acute kidney failure, unspecified (principal)
CPT/HCPCS: 80053

== ENCOUNTER 2020-10-28 09:12 | Observation (INO) | payer MEDICARE, OTHER, SELFPAY ==
[2020-10-28] VITALS (19 sets, daily range): BP systolic 119–179; BP diastolic 44–81; PULSE 59–90; RESP 20–24; TEMP 36.8–37.3; O2SAT 84–96; BMI 41.3; BMI 36.8
--- NOTE | 2020-10-28 09:19 | HMH.EDSOB ---
ED Disposition Clinical Impression: Congestive heart failure Qualifiers: Heart failure type: diastolic Heart failure chronicity: acute on chronic Qualified Code(s): I50.33 - Acute on chronic diastolic (congestive) heart failure Disposition: Admitted As Inpatient Condition on Discharge: [facility] - Critical Care Critical Care Time: No Attestation: On , the high probability of a clinically significant, sudden or life threatening deterioration of the following system(s) required my full and direct attention, intervention and personal management. The time I documented below is in addition to time spent performing reported procedures but includes the following listed in this critical care notation. Medical Decision Making - Bill Inquiry Pt receiving controlled substance: No Vital Signs: 10/28/20 09:12 10/28/20 09:33 10/28/20 10:09 Temperature 99.1 F Temperature Source Oral Pulse Rate 83 68 Pulse Rate [Left Radial] 75 Respiratory Rate 22 Blood Pressure 179/74 H 151/51 H Blood Pressure [Right Arm] 179/74 H Blood Pressure Mean 119 89 Blood Pressure Mean [Right Arm] 109 Blood Pressure Source [Right Arm] Automatic Cuff Blood Pressure Position [Right Arm] Sitting 02 Sat by Pulse Oximetry 84 L 93 L 95 Oxygen Delivery Method Room Air Nasal Cannula Oxygen Flow Rate (LPM) 4 10/28/20 10:31 10/28/20 11:01 10/28/20 11:28 Temperature Temperature Source Pulse Rate 73 62 64 Pulse Rate [Left Radial] Respiratory Rate Blood Pressure 141/57 H 156/44 H 148/58 H Blood Pressure [Right Arm] Blood Pressure Mean 85 81 88 Blood Pressure Mean [Right Arm] Blood Pressure Source [Right Arm] Blood Pressure Position [Right Arm] 02 Sat by Pulse Oximetry 95 93 L 94 L Oxygen Delivery Method Nasal Cannula Nasal Cannula Nasal Cannula Oxygen Flow Rate (LPM) 4 4 4 10/28/20 11:31 10/28/20 12:01 10/28/20 12:31 Temperature Temperature Source Pulse Rate 61 62 62 Pulse Rate [Left Radial] Respiratory Rate Blood Pressure 135/54 L 151/58 H 145/52 H Blood Pressure [Right Arm] Blood Pressure Mean 81 89 83 Blood Pressure Mean [Right Arm] Blood Pressure Source [Right Arm] Blood Pressure Position [Right Arm] 02 Sat by Pulse Oximetry 94 L 92 L 93 L Oxygen Delivery Method Nasal Cannula Nasal Cannula Nasal Cannula Oxygen Flow Rate (LPM) 4 4 4 10/28/20 13:01 10/28/20 13:31 10/28/20 14:03 Temperature Temperature Source Pulse Rate 66 63 60 Pulse Rate [Left Radial] Respiratory Rate Blood Pressure 157/67 H 119/55 L 145/75 H Blood Pressure [Right Arm] Blood Pressure Mean 75 76 85 Blood Pressure Mean [Right Arm] Blood Pressure Source [Right Arm] Blood Pressure Position [Right Arm] 02 Sat by Pulse Oximetry 92 L 93 L 96 Oxygen Delivery Method Nasal Cannula Nasal Cannula Nasal Cannula Oxygen Flow Rate (LPM) 4 4 4 10/28/20 14:23 Temperature 98.4 F Temperature Source Oral Pulse Rate Pulse Rate [Left Radial] 65 Respiratory Rate 21 Blood Pressure Blood Pressure [Right Arm] 139/81 Blood Pressure Mean Blood Pressure Mean [Right Arm] 100 Blood Pressure Source [Right Arm] Automatic Cuff Blood Pressure Position [Right Arm] Sitting 02 Sat by Pulse Oximetry 96 Oxygen Delivery Method Nasal Cannula Oxygen Flow Rate (LPM) 4 - Lab Data Lab Results 10/28/20 09:24: WBC 11.4 H, RBC 3.54 L, Hgb 10.4 L, Hct 33.0 L, MCV 93.0, MCH 29.2, MCHC 31.4 L, RDW 17.0, Plt Count 249, MPV 8.1, Neut % (Auto) 78.1, Lymph % (Auto) 11.5, Hickman % (Auto) 6.8, Eos % (Auto) 2.8, Baso % (Auto) 0.8, Neut # (Auto) 8.9 H, Lymph # (Auto) 1.3, Hickman # (Auto) 0.8, Eos # (Auto) 0.3, Baso # (Auto) 0.1 10/28/20 09:24: Sodium 139, Potassium 4.4, Chloride 105, Carbon Dioxide 24, Anion Gap 14.4, BUN 34 H, Creatinine 2.00 H, Estimated Creat Clear 30, Estimated GFR 32 L, Est GFR ( Amer) 39 L, Glucose 185 H, Calcium 9.0, Total Bilirubin 0.8, AST 31, ALT 20, Alkaline Phosphatase 95, Troponin I 0.02,
--- NOTE | 2020-10-28 09:26 | ECG_ITS ---
APPROVED REPORT Exam: Resting ECG HR:78 bpm ECG Measurements Heart Rate 78 AXES FL 166 P 66 QRSd 136 QRS 84 QT 412 T 266 QTc 469 Conclusion Normal sinus rhythm Nonspecific intraventricular block T wave abnormality, consider inferior ischemia Abnormal ECG Electronically signed by : Rom Brady, 10/29/2020 13:22:37
[2020-10-28 09:30] LABS: ABG Base Excess -1.9 mmol/L (-2.4-2.3); ABG HCO3 23.7 mmhg (22.0-26.0); ABG Oxygen Saturation 89 % (90-100); ABG PCO2 44.2 mmhg (35.0-45.0); ABG PH 7.35 mmol/L (7.35-7.45); ABG TCO2 25.1 mmhg (23-27)
[2020-10-28 09:31] LABS: Allen's Test ACCEPTABLE; Oxygen 4LPM %; Source R RADIAL
--- NOTE | 2020-10-28 09:38 | XR_ITS ---
PROCEDURE: XR CHEST 2V CLINICAL HISTORY: soa COMPARISON: CR CXR2V XR chest 2V from 08/23/2018 CR XR CHEST 2V from 12/31/2019 CR XR CHEST 2V from 10/11/2020 FINDINGS: Background of chronic interstitial changes are noted. Bibasilar atelectasis. There is minor pleural thickening noted in bilateral lower zones. Cardiac size and central pulmonary vasculature within normal limits. Degenerative changes of the visualized thoracic spine are noted. IMPRESSION: Background of chronic interstitial changes. Bibasal atelectasis. Dictated by: Antonia Glez 10/28/2020 10:15 Antonia Glez in [place] 10/28/2020 10:15
[2020-10-28 09:48] LABS: Basophils # 0.1 K/mm3 (0-0.2); Basophils % 0.8 % (0.1-2.0); Eosinophils # 0.3 K/mm3 (0.0-0.4); Eosinophils % 2.8 % (0.1-12.0); Hemoglobin 10.4 g/dL (14.1-18.0); Lymphocytes # 1.3 K/mm3 (0.7-4.5); Lymphocytes % 11.5 % (10-50); Mean Corpuscular HGB Conc 31.4 g/dL (31.8-35.4); Mean Corpuscular Hemoglobin 29.2 pg (27.0-31.2); Mean Platelet Volume 8.1 fl (7.4-10.4); Monocytes # 0.8 K/mm3 (0.1-1.0); Monocytes % 6.8 % (1.7-9.3); Neutrophils # 8.9 K/mm3 (1.8-7.8); Neutrophils % 78.1 % (37.0-80.0); Platelet Count 249 K/mm3 (142-424); Red Blood Count 3.54 M/mm3 (4.60-6.20); White Blood Count 11.4 K/mm3 (4.8-10.8)
[2020-10-28 09:48] LABS: Adenovirus,PCR Not Detected (NotDetected); Bordetella Pertussis Not Detected (NotDetected); Chlamydophila Pneumoniae, PCR Not Detected (NotDetected); Coronavirus 19, PCR Not Detected (NotDetected); Coronavirus 229E Not Detected (NotDetected); Coronavirus NL63 Not Detected (NotDetected); Coronavirus OC43 Not Detected (NotDetected); Coronovirus HKU1,PCR Not Detected (NotDetected); Human Metapneumovirus Not Detected (NotDetected); Influenza A, PCR Not Detected (NotDetected); Influenza AH1, 2009 Not Detected (NotDetected); Influenza AH1, PCR Not Detected (NotDetected); Influenza AH3,PCR Not Detected (NotDetected); Influenza B, PCR Not Detected (NotDetected); Mycoplasma Pneumoniae, PCR Not Detected (NotDetected); Parainfluenza 1, PCR Not Detected (NotDetected); Parainfluenza 2, PCR Not Detected (NotDetected); Parainfluenza 3, PCR Not Detected (NotDetected); Parainfluenza 4, PCR Not Detected (NotDetected); Respiratory Syncytial Virus Not Detected (NotDetected); Rhinovirus/Enterovirus Not Detected (NotDetected)
[2020-10-28 09:52] LABS: Alanine Aminotransferase 20 U/L (12-78); Albumin Level 4.2 g/dl (3.5-5.0); Albumin/Globulin Ratio 1.4 (1.1-1.8); Alkaline Phosphatase 95 U/L (38-126); Anion Gap 14.4 mEq/L (5-15); Aspartate Amino Transferase 31 U/L (17-59); Bilirubin,Total 0.8 mg/dl (0.2-1.3); Blood Urea Nitrogen 34 mg/dl (9-20); Carbon Dioxide 24 mmol/L (22.0-30.0); Chloride 105 mmol/L (98-107); Creatinine Clearance Estimated 30 mL/min (50-200); Estimated Glomerular Filt Rate 32 ml/min (>60); GFR (African American) 39 ML/MIN (>60); Globulin 2.9 g/dL (1.3-3.2); Glucose 185 mg/dl (74-100); Potassium 4.4 mmoL/L (3.5-5.1); Sodium 139 mmol/L (136-145); Total Protein,Serum 7.1 g/dl (6.3-8.2)
[2020-10-28 10:04] LABS: NT Pro Brain Natriuretic Pep. 2180 pg/mL (0-450); Troponin I 0.02 ng/ml (0.00-0.034)
--- NOTE | 2020-10-28 12:52 | PC.NURSE ---
speaking with Dr Valencia.
[2020-10-28 13:25] LABS: Troponin I 0.02 ng/ml (0.00-0.034)
--- NOTE | 2020-10-28 13:30 | PC.NURSE ---
[facility] kept getting a voicemail. [facility]
--- NOTE | 2020-10-28 13:40 | PC.NURSE ---
spoke with MELISSA at [facility], advised him that pt wishes to be admitted here [facility].
--- NOTE | 2020-10-28 15:42 | HMH.PHAINT ---
HOME MEDICATIONS RECONCILED FROM PHARMACY LIST (HOMETOWN AND MAIL ORDER), MD LIST, AND PATIENT INTERVIEW.
--- NOTE | 2020-10-28 15:43 | PC.NURSE ---
called and spoke with Edilma in [facility] office. minimal orders received from Er. No home meds ordered by Er MD.
[2020-10-28 17:03] LABS: Troponin I 0.01 ng/ml (0.00-0.034)
--- NOTE | 2020-10-28 17:22 | PC.NURSE ---
paged Dr Heard at [phone] who is personal finance instructor for Dr Valencia to notify of critical fsbs of [phone]. Pt has no medication orders. call returned at [phone] med intensity sliding scale insulin
--- NOTE | 2020-10-28 18:44 | PC.NURSE ---
notified dr Valencia face to face of pt elevated fsbs as well as pt c/o increased dyspnea since md assessment. pt has rested well in room since presenting to the unit. lungs remain diminished throughout, no pitting edema noted (non pitting only) bowel sounds are active in all quads.
--- NOTE | 2020-10-28 18:54 | HMH.HP ---
*Admission Date: 10/28/20 *Chief complaint: dyspnea *History of present illness: To the emergency department complaining of shortness of breath that began last night. The patient has a history of COPD as well as congestive heart failure. He complains of orthopnea and paroxysmal nocturnal dyspnea. He also complains of pedal edema. Initially the patient was quite dyspneic. He was also hypoxic. He was started on 4 L of nasal cannula oxygen in the emergency department. His oxygen saturations cesar to the lower 90s. Patient had pedal edema on exam. He also has some periorbital edema. Therefore, he was given Lasix intravenously. During his stay in the emergency department the patient has diuresed approximately 1 L. Patient's chest x-ray does not show any acute infiltrates. The patient was also given some inhaled bronchodilators as well as intravenous Solu-Medrol for a possible COPD exacerbation. The patient is in symptoms improved some. However, the patient continues to be slightly hypoxic at 91% oxygen saturations on 3-1/2 L of nasal cannula oxygen. The patient is ABG does not show any serious CO2 retention. I suspect that the patient's symptoms are mostly due to congestive heart failure exacerbation. He has an elevated BNP. His creatinine is also elevated but this is not a new finding. Given the patient's hypoxia I will recommend admission and have consulted the patient's primary care physician. Patient agrees with the plan. The patient is known to me from following in the office. He also follows Dr. Aly. He has a history of coronary bypass and multiple stent deployments. He has had no ischemic chest pain, his troponins were negative in the emergency room. His regimen includes lisinopril, Coreg, and Aldactone. He has had some issues with renal insufficiency, longstanding and previous hyper kalemia. Patient carries a diagnosis of COPD, has been using oxygen for about 3 years, mostly at night. He became short of breath early this morning while getting up to urinate. Presented to the emergency room, his work-up and initial treatment were as above. I reviewed his chest film, he does not appear to be overtly volume overloaded and there is no acute infiltration. His BN P is elevated. He received IV Lasix in the emergency room with a decent response. The patient's calves are soft and symmetric. He does not appear to be retaining CO2. There is no active wheezing, but there is a diminished air movement. Patient received IV Solu-Medrol in the emergency room. Subsequent blood sugars were elevated, he is placed on a sliding scale. We will have the patient set up for an echo, will be consulting pulmonary and cardiology to follow along with. [facility] History Medical History: Reports:: Atrial Fibrillation, Cancer, Congestive Heart Failure, Chronic Obstructive Pulmonary Disease (COPD), Congenital Heart Disease, Coronary Artery Disease, Diabetes Mellitus Type 2, Gastroesophageal Reflux Disease(GERD), Gastrointestinal Bleed, Home Oxygen, Hyperlipidemia, Hypertension, Lung Disease, Kidney Stones, Myocardial Infarction, Renal Insufficiency Denies:: Diabetes Mellitus Type 1, Internal Pacemaker, MRSA, Seizures *Have you ever received a pneumonia vaccine?: Yes *Have you received a flu vaccine this season?: Yes Other Medical History: Reports: Anemia, Arthritis Laterality Cases: Bilateral: Cataract Other Surgeries: Yes: No Previous Surgery, Angiogram, Angioplasty, CABG, Cancer Surgery, Cardiac Catheterization, Cardiac Surgery, Colonoscopy, Coronary Stent, EGD, Hernia Repair, Other. No: Pacemaker Amputation: No Fractures: No - *Social History Last grade of school completed: High school graduate Smoking Status: Former smoker Tobacco Type: cigarettes # Packs/Day (cigarettes): 1 Alcohol Intake: never Alcohol Intake Frequency:: other Substance Use Type: denies use *Occupational Status:: retired Housing: house Household Members: spouse *Travel in the last 8 we
[2020-10-28 21:44] LABS: Glucose,Random 558 mg/dL (74-100)
[2020-10-29] VITALS (9 sets, daily range): BP systolic 114–130; BP diastolic 52–55; PULSE 60–74; RESP 18–21; TEMP 36.4–36.9; O2SAT 87–94; BMI 36.1
[2020-10-29 00:40] LABS: POC Glucose,Bedside 544 (70-110)
[2020-10-29 00:40] LABS: POC Glucose,Bedside 463 (70-110)
--- NOTE | 2020-10-29 05:23 | PC.NURSE ---
shift summary pts lung sounds are diminished with coarse crackles sats maintained 90% or above on 4L via NC. pts blood sugar has been critically high both times it was checked, pt states he takes way more insulin at home and that he isnt receiving enough here at the hospital. pt is alert and oriented X4. pt is able to walk to the bathroom unassisted. pt denies any pain, nausea, vomiting, or diarrhea.
--- NOTE | 2020-10-29 06:00 | XR_ITS ---
PROCEDURE: XR CHEST PORTABLE CLINICAL HISTORY: dyspnea COMPARISON: CR XR CHEST 2V from 12/31/2019 CR XR CHEST 2V from 10/11/2020 CR XR CHEST 2V from 10/28/2020 FINDINGS: Median sternotomy and mediastinal clips are noted. Background of chronic interstitial changes. Blunting of the bilateral costophrenic angles are noted. Mild cardiomegaly is noted. Central pulmonary vasculature is within normal limits. Degenerative changes of the visualized thoracic spine are noted. IMPRESSION: Status post CABG. Background of chronic interstitial changes. No lobar consolidation. Mild cardiomegaly. Dictated by: Antonia Glez 10/29/2020 10:30 Antonia Glez in [place] 10/29/2020 10:30
[2020-10-29 06:03] LABS: Basophils % 0.1 % (0.1-2.0); Eosinophils % 0.5 % (0.1-12.0); Hematocrit 31.1 % (42.0-52.0); Hemoglobin 9.5 g/dL (14.1-18.0); Lymphocytes # 0.6 K/mm3 (0.7-4.5); Lymphocytes % 8.2 % (10-50); Mean Corpuscular HGB Conc 30.4 g/dL (31.8-35.4); Mean Corpuscular Hemoglobin 28.7 pg (27.0-31.2); Mean Corpuscular Volume 94.4 fl (80-94); Mean Platelet Volume 7.9 fl (7.4-10.4); Monocytes # 0.2 K/mm3 (0.1-1.0); Monocytes % 2.2 % (1.7-9.3); Neutrophils # 6.3 K/mm3 (1.8-7.8); Platelet Count 239 K/mm3 (142-424); Red Cell Distribution Width 16.8 % (11.5-17.5)
[2020-10-29 06:07] LABS: Alanine Aminotransferase 23 U/L (12-78); Albumin Level 3.7 g/dl (3.5-5.0); Albumin/Globulin Ratio 1.4 (1.1-1.8); Alkaline Phosphatase 91 U/L (38-126); Anion Gap 13.9 mEq/L (5-15); Aspartate Amino Transferase 25 U/L (17-59); Bilirubin,Total 0.7 mg/dl (0.2-1.3); Blood Urea Nitrogen 48 mg/dl (9-20); Calcium 8.5 mg/dl (8.4-10.2); Carbon Dioxide 24 mmol/L (22.0-30.0); Chloride 100 mmol/L (98-107); Creatinine Clearance Estimated 44 mL/min (50-200); Estimated Glomerular Filt Rate 31 ml/min (>60); GFR (African American) 37 ML/MIN (>60); Globulin 2.6 g/dL (1.3-3.2); Potassium 4.9 mmoL/L (3.5-5.1); Sodium 133 mmol/L (136-145); Total Protein,Serum 6.3 g/dl (6.3-8.2)
[2020-10-29 06:10] LABS: Glucose 569 mg/dl (74-100)
[2020-10-29 06:15] LABS: MANUAL DIFFERENTIAL MANUAL DIFFERENTIAL (MANUAL DIFF)
--- NOTE | 2020-10-29 08:00 | CA_ITS ---
APPROVED REPORT EXAM: Comprehensive 2D, Doppler, and color-flow Echocardiogram Marketing Director Assisted Living: Chelsea Guadarrama RVT Ht: 5 ft 8 in Wt: 242lbs BSA: 2.22 BP: 120/70 mmHg Indications: COPD,CHF,CABG,KRAMER,SOA,A-FIB,DM,HTN,HLD,OBESITY,GERD TDS 2D Dimensions LVOT 1.81 cm (M/F) 1.5-2.5 LA Volume 39.80 mL LA Volume Index 18.00 mL/m2 (M/F) 16-34 M-Mode Dimensions RVDd 3.43 cm (0.9-2.6) LA Diam 4.57 cm (1.9-4.0) LVDd 5.66 cm (3.5-5.7) Ao Diam 2.87 cm (2.0-3.7) LVDs 4.02 cm (3.5-5.7) IVSd 0.64 cm (0.6-1.1) PWd 1.23 cm (0.6-1.1) EF (Teich) 55.00% FS 29.00% EDV (Teich) 157.50 mL ESV (Teich) 70.80 mL LV Diastology E Decel Time 330.00 (160-240 msec) E/A Ratio 1.0 MED E' 9.50 (< 7 cm/sec) E'/MED E' Ratio 13.36 (>14) LAT E' 9.90 (<10 cm/sec) E/LAT E' Ratio 12.82 (>14) Mitral Valve MV E Max Kristofer. 127.00 (40-130 cm/s) MV A Velocity 125.00 (40-130 cm/s) E/A Ratio 1.02 MV Decel. Time 330.00 (160-240 ms) MV PHT 97.00 ms Pulmonary Valve PV Peak Velocity 135.00 (50-150 cm/s) Tricuspid Valve TR P. Velocity 323.00 cm/s RAP Estimate 10.00 mmHg RVSP 51.60 mmHg Left Ventricle Left atrium is mildly enlarged, left ventricle is normal size, mild concentric left ventricular hypertrophy, visually estimated ejection fraction 55% with no regional wall motion abnormality, grade 1 diastolic dysfunction seen without tissue Doppler evidence of raise left atrial pressure. Right Ventricle Right atrium and right ventricle are mildly enlarged with normal contractility. Aortic Valve Aortic valve is minimally thickened and fibrosed, there is no aortic stenosis or aortic insufficiency. Mitral Valve Mitral valve is minimally thickened, there is mild mitral regurgitation. Tricuspid Valve Tricuspid grossly normal, there is trace tricuspid regurgitation, tricuspid regurgitation jet velocity is inadequate for calculation of the right ventricular systolic pressure. Pulmonic Valve Pulmonic valve is poorly visualized. Great Vessels Aortic root is normal size. Pericardium No significant pericardial effusion noted. Conclusion 1. Biatrial enlargement, normal left ventricular size, mild concentric left ventricular hypertrophy, visually estimated ejection fraction 55% with no regional wall motion abnormality, grade 1 diastolic dysfunction seen without tissue Doppler evidence of raise left atrial pressure. 2. Mildly enlarged right ventricle with normal contractility. 3. Mild mitral and trace tricuspid regurgitation. 4. No significant pericardial effusion noted. Electronically signed by : Shane Degroot, 10/30/2020 15:09:13
[2020-10-29 08:24] LABS: Anisocytosis 1+; Lymphocytes % 11 % (10-50); Macrocytosis 1+; Monocytes % 4 % (2-9); Neutrophils % 85 % (42-76); Platelet Estimate Normal; Total Cells Counted 100
--- NOTE | 2020-10-29 08:25 | P.CONPHA_ITS ---
[facility] Pharmacy VTE Monitoring - Patient Demographics Admission date: 10/28/20 Report Date: 10/29/20 Time: 08:25 Allergies/Adverse Reactions: Patient Allergies oxycodone Allergy (Intermediate, Verified 10/20/20 13:09) I-RASH Sulfa (Sulfonamide Antibiotics) Allergy (Unknown, Verified 10/20/20 13:09) Height: 1.73 m Weight: 108.04 kg Patient Problems: Current Active Problems Congestive heart failure (Acute) Diastolic CHF (Chronic) Renal insufficiency (Chronic) Hx of CABG (Chronic) Diabetes mellitus (Chronic) Dyspnea (Acute) HLD (hyperlipidemia) (Chronic) HTN (hypertension) (Chronic) History of coronary artery bypass graft (Chronic) CAD (coronary artery disease) (Chronic) - VTE Risk Labs: VTE Related Lab Results Hgb 9.5 g/dL (14.1-18.0) L 10/29/20 05:49 Hct 31.1 % (42.0-52.0) L 10/29/20 05:49 Plt Count 239 K/mm3 (142-424) 10/29/20 05:49 BUN 48 mg/dl (9-20) H D 10/29/20 05:49 Creatinine 2.10 mg/dl (0.66-1.25) H 10/29/20 05:49 Estimated Creat Clear 44 mL/min (50-200) 10/29/20 05:49 VTE Score: 5 VTE Risk Level: Low Risk - Prophylaxis VTE Prophylaxis Ordered?: Yes Types of VTE Prophylaxis: TEDS Knee High Location of Applied Device: Bilateral Lower Extremeties Pharmacologic Type: Enoxaparin
--- NOTE | 2020-10-29 09:19 | HMH.DCSUM ---
General - General Admission date:: 10/28/20 Discharge date: 10/29/20 HPI HPI: To the emergency department complaining of shortness of breath that began last night. The patient has a history of COPD as well as congestive heart failure. He complains of orthopnea and paroxysmal nocturnal dyspnea. He also complains of pedal edema. Initially the patient was quite dyspneic. He was also hypoxic. He was started on 4 L of nasal cannula oxygen in the emergency department. His oxygen saturations cesar to the lower 90s. Patient had pedal edema on exam. He also has some periorbital edema. Therefore, he was given Lasix intravenously. During his stay in the emergency department the patient has diuresed approximately 1 L. Patient's chest x-ray does not show any acute infiltrates. The patient was also given some inhaled bronchodilators as well as intravenous Solu-Medrol for a possible COPD exacerbation. The patient is in symptoms improved some. However, the patient continues to be slightly hypoxic at 91% oxygen saturations on 3-1/2 L of nasal cannula oxygen. The patient is ABG does not show any serious CO2 retention. I suspect that the patient's symptoms are mostly due to congestive heart failure exacerbation. He has an elevated BNP. His creatinine is also elevated but this is not a new finding. Given the patient's hypoxia I will recommend admission and have consulted the patient's primary care physician. Patient agrees with the plan. The patient is known to me from following in the office. He also follows Dr. Aly. He has a history of coronary bypass and multiple stent deployments. He has had no ischemic chest pain, his troponins were negative in the emergency room. His regimen includes lisinopril, Coreg, and Aldactone. He has had some issues with renal insufficiency, longstanding and previous hyper kalemia. Patient carries a diagnosis of COPD, has been using oxygen for about 3 years, mostly at night. He became short of breath early this morning while getting up to urinate. Presented to the emergency room, his work-up and initial treatment were as above. I reviewed his chest film, he does not appear to be overtly volume overloaded and there is no acute infiltration. His BN P is elevated. He received IV Lasix in the emergency room with a decent response. The patient's calves are soft and symmetric. He does not appear to be retaining CO2. There is no active wheezing, but there is a diminished air movement. Patient received IV Solu-Medrol in the emergency room. Subsequent blood sugars were elevated, he is placed on a sliding scale. We will have the patient set up for an echo, will be consulting pulmonary and cardiology to follow along with. Hospital Course Hospital Course: To the emergency department complaining of shortness of breath that began last night. The patient has a history of COPD as well as congestive heart failure. He complains of orthopnea and paroxysmal nocturnal dyspnea. He also complains of pedal edema. Initially the patient was quite dyspneic. He was also hypoxic. He was started on 4 L of nasal cannula oxygen in the emergency department. His oxygen saturations cesar to the lower 90s. Patient had pedal edema on exam. He also has some periorbital edema. Therefore, he was given Lasix intravenously. During his stay in the emergency department the patient has diuresed approximately 1 L. Patient's chest x-ray does not show any acute infiltrates. The patient was also given some inhaled bronchodilators as well as intravenous Solu-Medrol for a possible COPD exacerbation. The patient is in symptoms improved some. However, the patient continues to be slightly hypoxic at 91% oxygen saturations on 3-1/2 L of nasal cannula oxygen. The patient is ABG does not show any serious CO2 retention. I suspect that the patient's symptoms are mostly due to congestive heart failure exacerbation. He has an elevated BNP. His creatinine
--- NOTE | 2020-10-29 09:52 | HMH.PULMCON ---
*Admission Date: 10/28/20 *Reason for consult:: Hypoxic respiratory failure *History of present illness: Mr. Pemberton is a 80-year-old male with significant smoking history smoked around 1 pack a day since he was 22 years old, last smoked around 2009 presented to hospital with worsening respiratory failure and found to be volume overloaded improved with diuresis and pulmonary was called as concern for COPD exacerbation on further management. [facility] History Medical History: Reports:: Atrial Fibrillation, Cancer, Congestive Heart Failure, Chronic Obstructive Pulmonary Disease (COPD), Congenital Heart Disease, Coronary Artery Disease, Diabetes Mellitus Type 2, Gastroesophageal Reflux Disease(GERD), Gastrointestinal Bleed, Home Oxygen, Hyperlipidemia, Hypertension, Lung Disease, Kidney Stones, Myocardial Infarction, Renal Insufficiency Denies:: Diabetes Mellitus Type 1, Internal Pacemaker, MRSA, Seizures *Have you ever received a pneumonia vaccine?: Yes *Have you received a flu vaccine this season?: Yes Other Medical History: Reports: Anemia, Arthritis Laterality Cases: Bilateral: Cataract Other Surgeries: Yes: No Previous Surgery, Angiogram, Angioplasty, CABG, Cancer Surgery, Cardiac Catheterization, Cardiac Surgery, Colonoscopy, Coronary Stent, EGD, Hernia Repair, Other. No: Pacemaker Amputation: No Fractures: No - *Social History Last grade of school completed: High school graduate Smoking Status: Former smoker Tobacco Type: cigarettes # Packs/Day (cigarettes): 1 Alcohol Intake: never Alcohol Intake Frequency:: other Substance Use Type: denies use *Occupational Status:: retired Housing: house Household Members: spouse *Travel in the last 8 weeks: None Family Hx:: Diabetes, Heart Attack, Hyperlipidemia, Hypertension ROS - Cons Denies chills, Denies night sweats - Card Reports shortness of breath with activity, Reports generalized swelling, Reports leg swelling - Resp Respiratory: Reports shortness of breath, Denies excessive phlegm production, Denies cough with sputum production - GI Gastrointestingal: Denies: abdominal pain, change in bowel habits - [place] Musculoskeletal: Reports joint pain - Psych Reports abnormal sleep pattern Meds Home Medications Medication Instructions Recorded Confirmed Type oxybutynin chloride 5 mg tablet 5 mg PO BID tab 08/13/19 10/28/20 History insulin regular hum U-500 conc 500 250 unit SQ DAILY ml 08/14/19 10/28/20 History unit/mL subcutaneous soln clopidogrel 75 mg tablet 75 mg PO DAILY tab 08/14/20 10/28/20 History isosorbide mononitrate 60 mg 60 mg PO DAILY tab 08/14/20 10/28/20 History tablet,extended release 24 hr Ferrous Gluconate [Ferrous 324 mg PO BID 10/11/20 10/28/20 History Gluconate 324mg Tab] Furosemide [Furosemide 40MG tAB*] 40 mg PO BID 10/11/20 10/28/20 History Gabapentin 300 mg PO BID 10/11/20 10/28/20 History Metoprolol Tartrate [Lopressor 25 mg PO BID 10/11/20 10/28/20 History 25mg tablet] Spironolactone 50 mg PO BID 10/11/20 10/28/20 History rosuvastatin 40 mg tablet 40 mg PO DAILY #90 tab 10/16/20 10/28/20 Rx carvedilol 12.5 mg tablet 12.5 mg PO BID 10/20/20 10/28/20 History nifedipine 30 mg tablet,extended 30 mg PO DAILY 10/20/20 10/28/20 History release Cefdinir [Omnicef 300mg Capsule] 300 mg PO BID 10/28/20 10/28/20 History Insulin Regular, Human [Humulin R 150 unit SQ PM 10/28/20 10/28/20 History U-500] Pantoprazole Sodium 40 mg PO DAILY 10/28/20 10/28/20 History Tamsulosin HCl 0.4 mg PO DAILY 10/28/20 10/28/20 History gemfibroziL [Gemfibrozil] 600 mg PO BID 10/28/20 10/28/20 History lisinopriL [Lisinopril] 10 mg PO DAILY 10/28/20 10/28/20 History Umeclidinium Brm/Vilanterol Tr 1 inh IH DAILY #60 device 10/29/20 Rx [Anoro Ellipta 62.5-25 Mcg INH] Allergies Allergy/AdvReac Type Severity Reaction Status Date / Time oxycodone Allergy Intermediate I-RASH Verified 10/20/20 13:09 Sulfa (Sulfonamide Allergy Unknown Verified 10/20/20 13:0
--- NOTE | 2020-10-29 10:29 | SW/DCPLANNER ---
Addendum entered by Haydee Agarwal 10/29/20 10:47: Per Helen with [facility] this patient already has continuous home O2. No further orders are needed at this time. I have informed patients nurse (Noel) that family will need to bring portable once they pick patient up. Original Note: Due to patients room air sat (87%) per nurse (Noel) I will fax patient information and order for home O2 to [facility]. [facility] will deliver a portable tank to [facility] prior to discharge. Patient will discharge home later today.
--- NOTE | 2020-10-29 10:51 | PC.NURSE ---
[facility] OFFICE TO CALL FOR APPT
[2020-10-30 23:45] LABS: POC Glucose,Bedside 597 (70-110)
== END 2020-10-29 12:00 | disposition home or self-care (01) ==
LOC: ER 12:59 → 2ND 14:25
PROVIDERS: Admitting Provider Family Medicine; Emergency Provider Emergency Medicine; PCP Family Medicine; Visit Provider Family Medicine
DX: R06.00 Dyspnea, unspecified (principal); I11.0 Hypertensive heart disease with heart failure; I50.33 Acute on chronic diastolic (congestive) heart failure; I48.91 Unspecified atrial fibrillation; I25.118 Atherosclerotic heart disease of native coronary artery with other forms of angina pectoris; E11.9 Type 2 diabetes mellitus without complications; Z79.4 Long term (current) 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; Z88.2 Allergy status to sulfonamides; Z95.1 Presence of aortocoronary bypass graft; Z95.5 Presence of coronary angioplasty implant and graft; Z87.891 Personal history of nicotine dependence; Z79.899 Other long term (current) drug therapy; Z99.81 Dependence on supplemental oxygen; J44.9 Chronic obstructive pulmonary disease, unspecified
CPT/HCPCS: 36415; 71045; 71046; 80053; 82803; 82947; 82962; 83605; 83880; 84484; 85007; 85025; 85378; 87040; 87581; 87633; 87798; 93005; 93306; 94640; 94760; 94761; 96374; 96375; 99283; G0378

== ENCOUNTER 2020-11-06 06:59 | Emergency (ER) | payer MEDICARE, OTHER, SELFPAY ==
[2020-11-06 06:54] VITALS: BP 130/44; PULSE 60; RESP 20; TEMP 36.4; O2SAT 94; BMI 37.9
[2020-11-06 07:01] VITALS: BP 122/40; PULSE 56; O2SAT 94
[2020-11-06 07:18] LABS: Basophils % 0.2 % (0.1-2.0); Eosinophils # 0.2 K/mm3 (0.0-0.4); Eosinophils % 2.7 % (0.1-12.0); Hematocrit 29.1 % (42.0-52.0); Hemoglobin 9.3 g/dL (14.1-18.0); Lymphocytes # 0.8 K/mm3 (0.7-4.5); Lymphocytes % 11.3 % (10-50); Mean Corpuscular HGB Conc 31.9 g/dL (31.8-35.4); Mean Corpuscular Hemoglobin 28.2 pg (27.0-31.2); Mean Corpuscular Volume 88.4 fl (80-94); Mean Platelet Volume 8.4 fl (7.4-10.4); Monocytes # 0.4 K/mm3 (0.1-1.0); Monocytes % 6.4 % (1.7-9.3); Neutrophils # 5.4 K/mm3 (1.8-7.8); Neutrophils % 79.4 % (37.0-80.0); Platelet Count 233 K/mm3 (142-424); Red Cell Distribution Width 16.3 % (11.5-17.5); White Blood Count 6.8 K/mm3 (4.8-10.8)
[2020-11-06 07:22] LABS: Alanine Aminotransferase 29 U/L (12-78); Albumin Level 3.4 g/dl (3.5-5.0); Albumin/Globulin Ratio 1.4 (1.1-1.8); Alkaline Phosphatase 70 U/L (38-126); Anion Gap 14.4 mEq/L (5-15); Aspartate Amino Transferase 27 U/L (17-59); Bilirubin,Total 0.4 mg/dl (0.2-1.3); Blood Urea Nitrogen 36 mg/dl (9-20); Calcium 8.3 mg/dl (8.4-10.2); Carbon Dioxide 21 mmol/L (22.0-30.0); Chloride 109 mmol/L (98-107); Creatinine Clearance Estimated 56 mL/min (50-200); Estimated Glomerular Filt Rate 39 ml/min (>60); GFR (African American) 47 ML/MIN (>60); Globulin 2.4 g/dL (1.3-3.2); Glucose 98 mg/dl (74-100); Potassium 4.4 mmoL/L (3.5-5.1); Sodium 140 mmol/L (136-145); Total Protein,Serum 5.8 g/dl (6.3-8.2)
[2020-11-06 07:24] LABS: Hemoglobin A1C 8.7 % (4.0-6.0)
[2020-11-06 07:31] VITALS: BP 118/45; PULSE 50; RESP 17; O2SAT 95
[2020-11-06 07:33] LABS: C-Reactive Protein 23.8 mg/L (0-4)
[2020-11-06 07:39] LABS: Procalcitonin 0.122 ng/mL (0.0-2.0)
[2020-11-06 07:48] LABS: Erythrocyte Sedimentation Rate 60 mm/hr (0-20)
[2020-11-06 08:01] VITALS: BP 125/46; PULSE 53; RESP 18; O2SAT 96
--- NOTE | 2020-11-06 08:28 | HMH.EDGENADL ---
ED Disposition Clinical Impression: Hypoglycemia, IDDM (insulin dependent diabetes mellitus), Renal insufficiency, Obesity (BMI 30-39.9) Anemia Qualifiers: Anemia type: unspecified type Qualified Code(s): D64.9 - Anemia, unspecified Disposition: Home, Self-Care Condition on Discharge: Good Instructions: DI for Hypoglycemia Additional Instructions: pt to call pcp and endo for follow up today Referrals: Andres Valencia MD [Primary Care Provider] - - Critical Care Critical Care Time: No Attestation: On 11/06/20, the high probability of a clinically significant, sudden or life threatening deterioration of the following system(s) required my full and direct attention, intervention and personal management. The time I documented below is in addition to time spent performing reported procedures but includes the following listed in this critical care notation. Medical Decision Making - Medical Records Medical records reviewed: Yes: I reviewed the patient's medical records. - Bill Inquiry Pt receiving controlled substance: No Vital Signs: 11/06/20 06:54 11/06/20 07:01 11/06/20 07:31 Temperature 97.5 F L Temperature Source Oral Pulse Rate 56 L 50 L Pulse Rate [Right] 60 Respiratory Rate 20 17 Blood Pressure 122/40 L 118/45 L Blood Pressure [Right Arm] 130/44 L Blood Pressure Mean Blood Pressure Mean [Right Arm] 72 Blood Pressure Source [Right Arm] Automatic Cuff Blood Pressure Position [Right Arm] Supine 02 Sat by Pulse Oximetry 94 L 94 L 95 Oxygen Delivery Method Room Air Nasal Cannula Nasal Cannula Oxygen Flow Rate (LPM) 2 2 11/06/20 08:01 Temperature Temperature Source Pulse Rate 53 L Pulse Rate [Right] Respiratory Rate 18 Blood Pressure 125/46 L Blood Pressure [Right Arm] Blood Pressure Mean 72 Blood Pressure Mean [Right Arm] Blood Pressure Source [Right Arm] Blood Pressure Position [Right Arm] 02 Sat by Pulse Oximetry 96 Oxygen Delivery Method Oxygen Flow Rate (LPM) - Lab Data Lab results reviewed: Yes: I reviewed the patient's lab results. Lab Results 11/06/20 06:56: WBC 6.8, RBC 3.30 L, Hgb 9.3 L, Hct 29.1 L, MCV 88.4, MCH 28.2, MCHC 31.9, RDW 16.3, Plt Count 233, MPV 8.4, Neut % (Auto) 79.4, Lymph % (Auto) 11.3, [place] % (Auto) 6.4, Eos % (Auto) 2.7, Baso % (Auto) 0.2, Neut # (Auto) 5.4, Lymph # (Auto) 0.8, [place] # (Auto) 0.4, Eos # (Auto) 0.2, Baso # (Auto) 0.0, ESR 60 H 11/06/20 06:56: Sodium 140, Potassium 4.4, Chloride 109 H, Carbon Dioxide 21 L, Anion Gap 14.4, BUN 36 H, Creatinine 1.70 H, Estimated Creat Clear 56, Estimated GFR 39 L, Est GFR ( Amer) 47 L, Glucose 98, Calcium 8.3 L, Total Bilirubin 0.4, AST 27, ALT 29, Alkaline Phosphatase 70, C-Reactive Protein 23.8 H, Total Protein 5.8 L, Albumin 3.4 L, Globulin 2.4, Albumin/Globulin Ratio 1.4, Procalcitonin 0.122 11/06/20 06:56: Hemoglobin A1c 8.7 H Result diagrams: 11/06/20 06:56 11/06/20 06:56 Orders (Tests/Meds): ED MEDICATIONS Discontinued Medications Generic Name Dose Route Start Last Admin Trade Name Freq PRN Reason Stop Dose Admin Sodium Chloride 1,000 mls @ 999 mls/hr 11/06/20 07:15 11/06/20 07:10 Sod Chlor 0.9% 1000ml Bag IV 11/06/20 08:15 999 mls/hr .Q1H1M MARYAN Administration ORDERS Category Date Time Status Urinalysis and Microscopic Stat Lab 11/06/20 07:23 Ordered - Reevaluation(s) Time: 08:36 Reevaluation #1: doing better Medical Decision Narrative: pt with hypoglycemia after evening dose - asked pt to call his endo and monitor glu today and call pcp for follow up General Adult HPI - General Chief complaint: Hyper/Hypoglycemia Stated complaint: Hypoglycemia Time Seen by Provider: 11/06/20 07:30 Mode of Arrival: EMS Source of Information: Patient, Spouse, EMS, Medical Record Limitations: No Limitations Description of Symptoms (Recalled from ER Triage Doc. by RN): Pt here via EMS for Hypoglycemia, pt was FSBS of 32, EMS gave 25
[2020-11-06 08:48] VITALS: BP 132/65; PULSE 52; RESP 20; TEMP 36.6; O2SAT 94
[2021-01-07 09:52] LABS: POC Glucose,Bedside 99 (70-110)
== END 2020-11-06 08:50 | disposition home or self-care (01) ==
PROVIDERS: Emergency Provider Emergency Medicine; PCP Family Medicine
DX: E10.649 Type 1 diabetes mellitus with hypoglycemia without coma (principal); Z79.4 Long term (current) 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; N28.9 Disorder of kidney and ureter, unspecified; I25.2 Old myocardial infarction; E78.5 Hyperlipidemia, unspecified; I10 Essential (primary) hypertension; I48.91 Unspecified atrial fibrillation; J44.9 Chronic obstructive pulmonary disease, unspecified; I50.9 Heart failure, unspecified; K21.9 Gastro-esophageal reflux disease without esophagitis; Z79.899 Other long term (current) drug therapy; Z88.2 Allergy status to sulfonamides; Z88.5 Allergy status to narcotic agent; D64.9 Anemia, unspecified
CPT/HCPCS: 80053; 82962; 83036; 84145; 85025; 85651; 86140; 96365; 99282

== ENCOUNTER 2020-11-10 14:06 | Observation (INO) | payer MEDICARE, OTHER, SELFPAY ==
[2020-11-10] VITALS (11 sets, daily range): BP systolic 139–201; BP diastolic 48–90; PULSE 64–79; RESP 18–24; TEMP 36.6–36.8; O2SAT 92–97; BMI 37.9; BMI 38.8
--- NOTE | 2020-11-10 14:19 | ECG_ITS ---
APPROVED REPORT Exam: Resting ECG HR:72 bpm ECG Measurements Heart Rate 72 AXES QRSd 134 QRS 1 QT 412 T 132 QTc 451 Conclusion Atrial fibrillation with a competing junctional pacemaker Nonspecific intraventricular block Cannot rule out Anterior infarct, age undetermined T wave abnormality, consider lateral ischemia or digitalis effect Abnormal ECG Electronically signed by : Rom Brady, 11/13/2020 14:00:21
--- NOTE | 2020-11-10 14:36 | HMH.EDGENADL ---
ED Disposition Clinical Impression: Shortness of breath Disposition: Admitted as Observation Condition on Discharge: Fair Referrals: Andres Valencia MD [Primary Care Provider] - Time of Disposition: 18:42 - Critical Care Critical Care Time: No Attestation: On 11/10/20, the high probability of a clinically significant, sudden or life threatening deterioration of the following system(s) required my full and direct attention, intervention and personal management. The time I documented below is in addition to time spent performing reported procedures but includes the following listed in this critical care notation. Medical Decision Making - Medical Records Medical records reviewed: Yes: I reviewed the patient's medical records. - Bill Inquiry Pt receiving controlled substance: No Vital Signs: 11/10/20 14:06 Temperature 98.3 F Temperature Source Oral Pulse Rate [Right] 77 Respiratory Rate 18 Blood Pressure [Right Arm] 142/58 H Blood Pressure Mean [Right Arm] 86 02 Sat by Pulse Oximetry 94 L Oxygen Delivery Method Nasal Cannula Oxygen Flow Rate (LPM) 3 - Lab Data Lab results reviewed: Yes: I reviewed the patient's lab results. Lab Results 11/10/20 14:50: D-Dimer 0.61 H 11/10/20 14:50: Sodium 139, Potassium 4.2, Chloride 106, Carbon Dioxide 24, Anion Gap 13.2, BUN 19, Creatinine 1.50 H, Estimated Creat Clear 63, Estimated GFR 45 L, Est GFR ( Amer) 55 L, Glucose 223 H, Calcium 9.0 11/10/20 14:50: NT-Pro-B Natriuret Pep 2600 H Result diagrams: 11/10/20 14:50 Orders (Tests/Meds): ED MEDICATIONS Generic Name Dose Route Start Last Admin Trade Name Freq PRN Reason Stop Dose Admin Sodium Chloride 10 ml 11/10/20 17:11 11/10/20 16:30 Sodium Chloride 0.9% 10ml Syr (Rad Only) IV 12/10/20 17:10 10 ml NEEDED PRN Administration Maintain IV Site Discontinued Medications Generic Name Dose Route Start Last Admin Trade Name Freq PRN Reason Stop Dose Admin Iopamidol 70 ml 11/10/20 17:11 11/10/20 16:30 Iopamidol-370 (76%);100ml Bottle IV 11/10/20 17:12 70 ml ONCE ONE Administration Sodium Chloride 40 ml 11/10/20 17:11 04/12/21 16:30 0.9 % Sodium Chloride 50 Ml Vial IV 11/10/20 17:12 40 ml ONCE ONE Administration ORDERS Category Date Time Status CT angio chest Stat Cat Scan 11/10/20 15:37 Taken Full Resp Panel w/COVID ([facility]) Routine Lab 11/10/20 18:36 Received - CT Data CT Scan: Chest Time Received: 17:[address] Reviewed: Yes: I have viewed the radiologist's interpretation Preliminary Findings: Abnormal Findings Narrative: No pulmonary embolism. Small bilateral pleural effusions Enlarged mediastinal and hilar lymph nodes Bilateral perifissural nodules measuring up to 7 mm - ECG Data Tracing #1 72 bpm, A. fib, paced rhythm ECG initial impression date: 11/10/20 ECG initial impression time: 14:25 Medical Decision Narrative: 80yo M sent from his PCP office for shortness of breath. Ultrasounds are negative for DVT. D-dimer is mildly elevated (though could be considered normal when adjusted for age) and CT angio of the chest is negative for pulmonary embolism. Case discussed with Dr. Valencia via phone, and he request the patient be admitted for pulmonology evaluation tomorrow. Dr. Chilel states he will see the patient either in the emergency department or up on the floor later this evening. Request the patient be empirically diuresed and received some albuterol nebulizers. General Adult HPI - General Stated complaint: SOB Time Seen by Provider: 11/10/20 14:36 - History of Present Illness HPI narrative: 80yo M with past medical history significant for CHF, COPD, diabetes is sent by Dr. Valencia to the emergency department secondary to shortness of breath and to rule out DVT. - Related Data Home Medications Medication Instructions Recorded Confirmed oxybutynin chloride 5 mg tablet 5 mg PO BID tab 08/13/19 11/10/20 insulin regular hum
[2020-11-10 15:16] LABS: D-Dimer 0.61 ug/mL (0.0-0.5)
--- NOTE | 2020-11-10 15:37 | CT_ITS ---
PROCEDURE: CT ANGIO CHEST CLINCIAL INDICATION: sob Severe shortness of breath COMPARISON: CR XR CHEST PORTABLE from 10/29/2020 TECHNIQUE: IV Contrast: 70ML Isovue 370 Axial images obtained with sagittal and coronal reformats. All CT scans at the facility use one or more dose reduction, viz: automated exposure control, ma/kV adjustment per patient size (including targeted exams where dose is matched to indication, i.e. head), or iterative reconstruction technique. FINDINGS: HEART AND MEDIASTINAL STRUCTURES: No evidence of pulmonary embolus. No evidence of aortic aneurysm. There has been a prior CABG. Scattered mildly prominent nodes are present in the mediastinum.. LUNGS AND PLEURAL SPACES: COPD changes. There are small bilateral pleural effusions with bibasilar atelectatic change. There are 2 nodules within the right minor fissure measuring 8 x 4 mm and 8 by 2 mm. These are consistent with small lymph nodes in the minor fissure. Fluid is present in the left major fissure superiorly. Small left perifissural nodule inferiorly at 4 mm. BONY STRUCTURES: Degenerative changes thoracic spine. Old right-sided rib fractures. UPPER ABDOMEN: Unremarkable. ADDITIONAL FINDINGS: No other significant abnormalities. IMPRESSION: 1. No evidence of pulmonary embolus. 2. Small bilateral pleural effusions with fissural fluid on the left with bibasilar atelectasis 3. At least 2 perifissural nodules on the right in the minor fissure and 1 along the left major fissure at 4 mm. Probably benign. Suggest 6 month follow-up to confirm stability Dictated by: Massimo Gaston MD 11/11/2020 08:10 Massimo Gaston MD in [place] 11/11/2020 08:10
--- NOTE | 2020-11-10 15:37 | CA_ITS ---
APPROVED REPORT Bilateral Lower Extremity Venous Study for DVT. Exposure Machine Operator: MARCELL Indications CAD r/o PE, cad Vein Imaging CFV (R): compressive, spontaneous, phasic, augmentation FEM (R): compressive, spontaneous, phasic, augmentation POP (R): compressive, spontaneous, phasic, augmentation DFV (R): compressive, spontaneous, phasic, augmentation PTV (R): compressive, spontaneous, phasic, augmentation GSV (R): compressive, spontaneous, phasic, augmentation SSV (R): compressive, spontaneous, phasic, augmentation Peroneals (R):compressive, spontaneous, phasic, augmentation GAS (R): compressive, spontaneous, phasic, augmentation CFV (L): compressive, spontaneous, phasic, augmentation FEM (L): compressive, spontaneous, phasic, augmentation POP (L): compressive, spontaneous, phasic, augmentation DFV (L): compressive, spontaneous, phasic, augmentation PTV (L): compressive, spontaneous, phasic, augmentation GSV (L): compressive, spontaneous, phasic, augmentation SSV (L): compressive, spontaneous, phasic, augmentation Peroneals (L):compressive, spontaneous, phasic, augmentation GAS (L): compressive, spontaneous, phasic, augmentation, Findings No evidence of DVT or superficial thrombophlebitis in the veins scanned of the right lower extremity. No evidence of DVT or superficial thrombophlebitis in the veins scanned of the left lower extremity. Conclusion No evidence of DVT or superficial thrombophlebitis in the veins scanned of the right lower extremity. No evidence of DVT or superficial thrombophlebitis in the veins scanned of the left lower extremity. Electronically signed by : Massimo Gaston MD 11/11/2020 17:04:14
[2020-11-10 15:50] LABS: Chloride 106 mmol/L (98-107)
[2020-11-10 15:51] LABS: Potassium 4.2 mmoL/L (3.5-5.1); Sodium 139 mmol/L (136-145)
[2020-11-10 15:54] LABS: Anion Gap 13.2 mEq/L (5-15); Blood Urea Nitrogen 19 mg/dl (9-20); Carbon Dioxide 24 mmol/L (22.0-30.0); Creatinine Clearance Estimated 63 mL/min (50-200); Estimated Glomerular Filt Rate 45 ml/min (>60); GFR (African American) 55 ML/MIN (>60); Glucose 223 mg/dl (74-100)
--- NOTE | 2020-11-10 16:11 | PC.NURSE ---
vascular lab at bedside
--- NOTE | 2020-11-10 16:15 | PC.NURSE ---
Addendum entered by Beti Mosley RN 11/10/20 16:15: 1600 Original Note: PT HAVING VENOUS DOPPLER AT BEDSIDE.
--- NOTE | 2020-11-10 16:15 | PC.NURSE ---
PATIENT BEING TRANSPORTED TO CT.
--- NOTE | 2020-11-10 16:27 | PC.NURSE ---
pt in ct
--- NOTE | 2020-11-10 18:24 | PC.NURSE ---
DR LIEN GUTIERREZ , [place]
[2020-11-10 18:25] LABS: NT Pro Brain Natriuretic Pep. 2600 pg/mL (0-450)
--- NOTE | 2020-11-10 18:27 | PC.NURSE ---
DR EMMANUEL WANTS HIM TO BE ADMITTTED
[2020-11-10 18:36] LABS: Bordetella Pertussis Not Detected (NotDetected); Chlamydophila Pneumoniae, PCR Not Detected (NotDetected); Coronavirus 19, PCR Not Detected (NotDetected); Coronavirus 229E Not Detected (NotDetected); Coronavirus NL63 Not Detected (NotDetected); Coronavirus OC43 Not Detected (NotDetected); Coronovirus HKU1,PCR Not Detected (NotDetected); Human Metapneumovirus Not Detected (NotDetected); Influenza A, PCR Not Detected (NotDetected); Influenza AH1, 2009 Not Detected (NotDetected); Influenza AH1, PCR Not Detected (NotDetected); Influenza AH3,PCR Not Detected (NotDetected); Influenza B, PCR Not Detected (NotDetected); Mycoplasma Pneumoniae, PCR Not Detected (NotDetected); Parainfluenza 1, PCR Not Detected (NotDetected); Parainfluenza 2, PCR Not Detected (NotDetected); Parainfluenza 3, PCR Not Detected (NotDetected); Parainfluenza 4, PCR Not Detected (NotDetected); Respiratory Syncytial Virus Not Detected (NotDetected); Rhinovirus/Enterovirus Not Detected (NotDetected)
[2020-11-10 18:37] LABS: Adenovirus,PCR Not Detected (NotDetected)
[2020-11-10 18:56] LABS: Basophils % 0.3 % (0.1-2.0); Eosinophils # 0.1 K/mm3 (0.0-0.4); Eosinophils % 1.3 % (0.1-12.0); Hematocrit 32.6 % (42.0-52.0); Hemoglobin 9.9 g/dL (14.1-18.0); Lymphocytes # 0.6 K/mm3 (0.7-4.5); Lymphocytes % 6.4 % (10-50); Mean Corpuscular HGB Conc 30.3 g/dL (31.8-35.4); Mean Corpuscular Hemoglobin 27.1 pg (27.0-31.2); Mean Corpuscular Volume 89.4 fl (80-94); Mean Platelet Volume 7.9 fl (7.4-10.4); Monocytes # 0.5 K/mm3 (0.1-1.0); Monocytes % 5.2 % (1.7-9.3); Neutrophils # 8.1 K/mm3 (1.8-7.8); Neutrophils % 86.8 % (37.0-80.0); Platelet Count 240 K/mm3 (142-424); Red Blood Count 3.64 M/mm3 (4.60-6.20); Red Cell Distribution Width 16.3 % (11.5-17.5); White Blood Count 9.4 K/mm3 (4.8-10.8)
--- NOTE | 2020-11-10 18:59 | PC.NURSE ---
OBTAINED MEDICATION LIST. PT STATED, I WAS HERE LAST WEEK AND NOTHING HAS CHANGED.
[2020-11-10 19:01] LABS: MANUAL DIFFERENTIAL MANUAL DIFFERENTIAL (MANUAL DIFF)
--- NOTE | 2020-11-10 19:43 | PC.NURSE ---
Dr Valencia at bedside
[2020-11-10 20:27] LABS: Eosinophils % 2 % (0-3); Lymphocytes % 4 % (10-50); Monocytes % 4 % (2-9); Neutrophils % 90 % (42-76); Platelet Estimate Normal; RBC Morphology Normal; Total Cells Counted 100
--- NOTE | 2020-11-10 20:35 | PC.NURSE ---
patient arrived to floor via wheelchair.
--- NOTE | 2020-11-10 23:44 | PC.NURSE ---
Per family request, BG taken and result was 171. Will take again at 0600 and administer insulin if required
[2020-11-10 23:50] LABS: POC Glucose,Bedside 171 (70-110)
[2020-11-11] VITALS (10 sets, daily range): BP systolic 107–153; BP diastolic 44–75; PULSE 63–88; RESP 16–18; TEMP 36.7–37.1; O2SAT 83–96; BMI 38.9
--- NOTE | 2020-11-11 03:46 | PC.NURSE ---
Pt admitted to floor 11/10/20 at 2034 for SOA, COPD Exacerbation. Patient on 3 L n/c and received 2 breathing Txs. Patient in resting comfortably with eyes close. Pt urine output gross as on Lasix, monitoring I/O with care as pt has Hx of CHF. Will continue to monitor for any acute changes.
[2020-11-11 07:01] LABS: Basophils % 0.5 % (0.1-2.0); Eosinophils # 0.1 K/mm3 (0.0-0.4); Eosinophils % 1.4 % (0.1-12.0); Hemoglobin 9.6 g/dL (14.1-18.0); Lymphocytes % 11.7 % (10-50); Mean Corpuscular HGB Conc 30.9 g/dL (31.8-35.4); Mean Corpuscular Hemoglobin 27.5 pg (27.0-31.2); Mean Corpuscular Volume 88.9 fl (80-94); Monocytes # 0.5 K/mm3 (0.1-1.0); Neutrophils % 80.5 % (37.0-80.0); Platelet Count 253 K/mm3 (142-424); Red Blood Count 3.48 M/mm3 (4.60-6.20); Red Cell Distribution Width 16.6 % (11.5-17.5); White Blood Count 8.6 K/mm3 (4.8-10.8)
[2020-11-11 07:13] LABS: Chloride 102 mmol/L (98-107); Potassium 3.8 mmoL/L (3.5-5.1); Sodium 136 mmol/L (136-145)
[2020-11-11 07:16] LABS: Anion Gap 11.8 mEq/L (5-15); Blood Urea Nitrogen 19 mg/dl (9-20); Calcium 8.8 mg/dl (8.4-10.2); Carbon Dioxide 26 mmol/L (22.0-30.0); Creatinine Clearance Estimated 54 mL/min (50-200); Estimated Glomerular Filt Rate 37 ml/min (>60); GFR (African American) 44 ML/MIN (>60); Glucose 249 mg/dl (74-100)
--- NOTE | 2020-11-11 07:24 | HMH.PHAVTE ---
[facility] Pharmacy VTE Monitoring - Patient Demographics Admission date: 11/10/20 Report Date: 11/11/20 Time: 07:25 Allergies/Adverse Reactions: Patient Allergies oxycodone Allergy (Intermediate, Verified 11/10/20 13:21) I-RASH Sulfa (Sulfonamide Antibiotics) Allergy (Unknown, Verified 11/10/20 13:21) Height: 1.7 m Weight: 112.548 kg Patient Problems: Current Active Problems Shortness of breath (Acute) - VTE Risk Labs: VTE Related Lab Results Hgb 9.6 g/dL (14.1-18.0) L 11/11/20 06:15 Hct 31.0 % (42.0-52.0) L 11/11/20 06:15 Plt Count 253 K/mm3 (142-424) 11/11/20 06:15 BUN 19 mg/dl (9-20) 11/11/20 06:15 Creatinine 1.80 mg/dl (0.66-1.25) H 11/11/20 06:15 Estimated Creat Clear 54 mL/min (50-200) 11/11/20 06:15 Was VTE Risk Assessment Performed: Yes VTE Score: 4 VTE Risk Level: Low Risk - Prophylaxis VTE Prophylaxis Ordered?: Yes Types of VTE Prophylaxis: TEDS Knee High, Pharmacological Location of Applied Device: Bilateral Lower Extremeties Pharmacologic Type: Enoxaparin
--- NOTE | 2020-11-11 08:21 | HMH.PHAINT ---
MEDICATION RECONCILIATION COMPLETED USING EXTERNAL FILL HISTORY AND PREVIOUS DISCHARGE SUMMARY
--- NOTE | 2020-11-11 09:06 | HMH.HP ---
*Admission Date: 11/10/20 *Chief complaint: Short of Breath *History of present illness: 80-year-old male patient presents to emergency department from PCP office for increased shortness of breath. Patient reports increasing shortness of breath over the last several days, was recently discharged from hospital with pneumonia and doxycycline. Patient also has significant history for CHF, COPD, and diabetes. Primary care physician was also concerned with possible DVT. Patient also reports using as needed oxygen at home 11/10/20 CX R: IMPRESSION: 1. No evidence of pulmonary embolus. 2. Small bilateral pleural effusions with fissural fluid on the left with bibasilar atelectasis 3. At least 2 perifissural nodules on the right in the minor fissure and 1 along the left major fissure at 4 mm. Probably benign. Suggest 6 month follow-up to confirm stability Dictated by: Alek, 80-year-old male patient sitting up in bed resting quietly respirations easy/even, he reports feeling better today than last night, denies chest pain. Patient is receiving IV Lasix with a good diuresis during the night. [facility] History I have reviewed the patient's past medical history: Yes Medical History: Reports:: Atrial Fibrillation, Congestive Heart Failure, Chronic Obstructive Pulmonary Disease (COPD), Congenital Heart Disease, Coronary Artery Disease, Diabetes Mellitus Type 2, Gastroesophageal Reflux Disease(GERD), Gastrointestinal Bleed, Home Oxygen, Hyperlipidemia, Hypertension, Lung Disease, Kidney Stones, Myocardial Infarction, Renal Insufficiency Denies:: Cancer, Diabetes Mellitus Type 1, Internal Pacemaker, MRSA, Seizures *Have you ever received a pneumonia vaccine?: No *Have you received a flu vaccine this season?: Yes Other Medical History: Reports: Anemia, Arthritis Other Surgeries: Yes: No Previous Surgery, Angiogram, Angioplasty, CABG, Cancer Surgery, Cardiac Catheterization, Cardiac Surgery, Colonoscopy, Coronary Stent, EGD, Hernia Repair, Other. No: Pacemaker Amputation: No Fractures: No - *Social History Last grade of school completed: High school graduate Smoking Status: Never smoker Tobacco Type: cigarettes # Packs/Day (cigarettes): 1 Alcohol Intake: never Alcohol Intake Frequency:: other Substance Use Type: denies use *Occupational Status:: retired Housing: house Household Members: spouse *Travel in the last 8 weeks: None Family Hx:: Diabetes, Heart Attack, Hyperlipidemia, Hypertension Review of Systems - Review of Systems Review of systems:: pertinent systems reviewed and negative unless documented below - Constitutional Reports fatigue, Denies anorexia, Denies fever(s) - Eyes Denies change in vision, Denies irritation - ENT Reports abnormal hearing, Denies dental pain, Denies headache(s) - *Cardiovascular Reports shortness of breath, Reports leg swelling, Denies chest pain - *Respiratory Reports cough, Reports shortness of breath, Denies change in phlegm color - *Gastrointestinal Denies abdominal pain, Denies coffee ground vomit - *Musculoskeletal Reports joint pain, Reports back pain, Denies limited joint movement, Denies numbness - *Neurologic Denies abnormal speech, Denies seizure-like activity - Endocrine Denies cold intolerance, Denies heat intolerance - Hematologic/Lymphatic Denies easy bruising, Denies enlarged lymph nodes - Allergic/Immunologic Denies GI upset with certain foods, Denies throat swelling Meds Home Medications Medication Instructions Recorded Confirmed Type oxybutynin chloride 5 mg tablet 5 mg PO BID tab 08/13/19 11/10/20 History clopidogrel 75 mg tablet 75 mg PO DAILY tab 08/14/20 11/10/20 History Furosemide [Furosemide 40MG tAB*] 40 mg PO BID 10/11/20 11/10/20 History Gabapentin 300 mg PO BID 10/11/20 11/10/20 History Spironolactone 50 mg PO BID 10/11/20 11/10/20 History rosuvastatin 40 mg tablet 40 mg PO DAILY #90 tab 10/16/20 11/10/20 Rx carvedilol 12.5 mg tablet 6.25 mg PO
--- NOTE | 2020-11-11 10:16 | HMH.CNCARD ---
History of Present Illness Consult date: 11/11/20 Requesting physician: Andres Valencia Consult reason: shortness of breath Chief complaint: Shortness of breath History of present illness: 80-year-old male admitted to [facility] with increased shortness of breath. Patient stated his shortness of breath has become worse in the past few weeks. States over the past 2 days he has been having shortness of breath with minimal exertion. Patient states he noticed that he was also having swelling of his hands and lower extremities. Patient stated he had been having some chest pain especially with taking deep breaths. [place] the chest pain was more lung pain. He denies chest pain, tightness or pressure. Swelling is noted of the lower extremities. Patient denies dizziness or palpitations. Patient does have history of congestive heart failure. Patient is currently on Lasix 40 mg twice daily. Patient states that this is helping with his swelling. Patient has history of PAF. Patient is noted to be in atrial fib with a controlled rate. Patient does have history of coronary artery disease. Last heart catheterization was December 2019 in which he had stents. History of CABG. Echocardiogram from December 2019 revealed EF 50% no wall motion abnormality. Patient does have history of PAD. Medical management in 2019. Patient does have history of COPD and is now requiring oxygen at 3 L at home. This will be managed by pulmonology. Patient is a known diabetic. Patient states his diabetes is controlled. History of hypertension and hyperlipidemia noted. History of renal insufficiency. Creatinine at this visit was 1.80. Overall patient states he is feeling much better since coming to the hospital. States pulmonology has given him inhalers and that seems to be working. D-dimer was noted as elevated on blood work. No PE was noted patient does have small bilateral pleural effusions with fissural fluid on the left. Chest CTA:IMPRESSION: 1. No evidence of pulmonary embolus. 2. Small bilateral pleural effusions with fissural fluid on the left with bibasilar atelectasis 3. At least 2 perifissural nodules on the right in the minor fissure and 1 along the left major fissure at 4 mm. Probably benign. Suggest 6 month follow-up to confirm stability Discussed with plan of care with Dr. Aly. At this time we will continue to monitor patient and his status. Obtain echocardiogram to assess LV function and valve status. No further cardiac testing indicated at this time unless patient's condition becomes worse. Continue Lasix 40 mg twice daily. Defer management of COPD and dyspnea to pulmonology. Please notify cardiology of any changes in patient status. Thank you for allowing cardiology to participate in the care of this patient. [facility] History I have reviewed the patient's past medical history: Yes Medical History: Reports:: Atrial Fibrillation, Congestive Heart Failure, Chronic Obstructive Pulmonary Disease (COPD), Congenital Heart Disease, Coronary Artery Disease, Diabetes Mellitus Type 2, Gastroesophageal Reflux Disease(GERD), Gastrointestinal Bleed, Home Oxygen, Hyperlipidemia, Hypertension, Lung Disease, Kidney Stones, Myocardial Infarction, Renal Insufficiency Denies:: Cancer, Diabetes Mellitus Type 1, Internal Pacemaker, MRSA, Seizures *Have you ever received a pneumonia vaccine?: No *Have you received a flu vaccine this season?: Yes Other Medical History: Reports: Anemia, Arthritis Other Surgeries: Yes: No Previous Surgery, Angiogram, Angioplasty, CABG, Cancer Surgery, Cardiac Catheterization, Cardiac Surgery, Colonoscopy, Coronary Stent, EGD, Hernia Repair, Other. No: Pacemaker Amputation: No Fractures: No - *Social History Last grade of school completed: High school graduate Smoking Status: Never smoker Tobacco Type: cigarettes # Packs/Day (cigarettes): 1 Alcohol Intake: never Alcohol Intake Frequency:: other Substance Use Type: denies use *Occupational Status:: retired Housing
--- NOTE | 2020-11-11 10:20 | HMH.PULMCON ---
*Admission Date: 11/10/20 *Reason for consult:: Hypoxic respiratory failure *History of present illness: Mr. Pemberton is 80-year-old with history of COPD and congestive heart failure recent admitted to the hospital and was discharged home presented to the hospital again with worsening respiratory failure. [facility] History Medical History: Reports:: Atrial Fibrillation, Congestive Heart Failure, Chronic Obstructive Pulmonary Disease (COPD), Congenital Heart Disease, Coronary Artery Disease, Diabetes Mellitus Type 2, Gastroesophageal Reflux Disease(GERD), Gastrointestinal Bleed, Home Oxygen, Hyperlipidemia, Hypertension, Lung Disease, Kidney Stones, Myocardial Infarction, Renal Insufficiency Denies:: Cancer, Diabetes Mellitus Type 1, Internal Pacemaker, MRSA, Seizures *Have you ever received a pneumonia vaccine?: No *Have you received a flu vaccine this season?: Yes Other Medical History: Reports: Anemia, Arthritis Other Surgeries: Yes: No Previous Surgery, Angiogram, Angioplasty, CABG, Cancer Surgery, Cardiac Catheterization, Cardiac Surgery, Colonoscopy, Coronary Stent, EGD, Hernia Repair, Other. No: Pacemaker Amputation: No Fractures: No - *Social History Last grade of school completed: High school graduate Smoking Status: Never smoker Tobacco Type: cigarettes # Packs/Day (cigarettes): 1 Alcohol Intake: never Alcohol Intake Frequency:: other Substance Use Type: denies use *Occupational Status:: retired Housing: house Household Members: spouse *Travel in the last 8 weeks: None Family Hx:: Diabetes, Heart Attack, Hyperlipidemia, Hypertension ROS - Cons Reports anorexia, Reports body ache(s) - Eyes Reports blind spots, Reports blurry vision - ENT Reports abnormal hearing, Reports bleeding gums - Card Reports chest pain, Reports shortness of breath, Reports shortness of breath with activity, Reports leg swelling - Resp Respiratory: Reports chest congestion, Reports non-productive cough, Denies excessive phlegm production - GI Gastrointestingal: Denies: abdominal pain - [place] Musculoskeletal: Reports joint pain Meds Home Medications Medication Instructions Recorded Confirmed Type oxybutynin chloride 5 mg tablet 5 mg PO BID tab 08/13/19 11/10/20 History clopidogrel 75 mg tablet 75 mg PO DAILY tab 08/14/20 11/10/20 History Furosemide [Furosemide 40MG tAB*] 40 mg PO BID 10/11/20 11/10/20 History Gabapentin 300 mg PO BID 10/11/20 11/10/20 History Spironolactone 50 mg PO BID 10/11/20 11/10/20 History rosuvastatin 40 mg tablet 40 mg PO DAILY #90 tab 10/16/20 11/10/20 Rx carvedilol 12.5 mg tablet 12.5 mg PO BID 10/20/20 11/11/20 History nifedipine 30 mg tablet,extended 30 mg PO DAILY 10/20/20 11/11/20 History release Insulin Regular, Human [Humulin R 150 unit SQ PM 10/28/20 11/11/20 History U-500] Pantoprazole Sodium 40 mg PO DAILY 10/28/20 11/10/20 History Tamsulosin HCl 0.4 mg PO DAILY 10/28/20 11/10/20 History gemfibroziL [Gemfibrozil] 600 mg PO BID 10/28/20 11/10/20 History lisinopriL [Lisinopril] 10 mg PO DAILY 10/28/20 11/10/20 History Isosorbide Mononitrate [Isosorbide 60 mg PO DAILY 11/10/20 11/11/20 History Mononitrate ER] Tiotropium Br/Olodaterol HCl 2 puff INHALATION DAILY 11/10/20 11/10/20 History [Stiolto Respimat] Insulin Regular, Human [Humulin R 250 unit SQ DAILY 11/11/20 11/11/20 History U-500 Kwikpen] Allergies Allergy/AdvReac Type Severity Reaction Status Date / Time oxycodone Allergy Intermediate I-RASH Verified 11/10/20 13:21 Sulfa (Sulfonamide Allergy Unknown Verified 11/10/20 13:21 Antibiotics) Exam - Constitutional Constitutional:: Present: no acute distress, comfortable - HENMT Exam HENMT: Present: atraumatic - Eye Exam Eyes:: Present: eyelids normal - Neck Exam Neck:: Present: normal visual inspection - Respiratory Exam Respiratory:: Present: able to speak in complete sentences, bibailar crackels heard, decreased breath sounds. Absent: wheezing - Car
--- NOTE | 2020-11-11 10:30 | CA_ITS ---
APPROVED REPORT EXAM: Limited 2D Echocardiogram Utility Tech: Chelsea Guadarrama RVT Ht: 5 ft 6 in Wt: 248lbs BSA: 2.19 BP: 148/54 mmHg Indications: EF CHECK,SOA,CHF,CAD,A-FIB,GERD,DM,OBESITY,HTN,HLD,EF 55% ON 10/28/20 M-Mode Dimensions RVDd 3.04 cm (0.9-2.6) LA Diam 4.74 cm (1.9-4.0) LVDd 5.55 cm (3.5-5.7) Ao Diam 2.61 cm (2.0-3.7) LVDs 3.83 cm (3.5-5.7) IVSd 0.88 cm (0.6-1.1) PWd 1.28 cm (0.6-1.1) EF (Teich) 58.10% FS 31.00% EDV (Teich) 150.50 mL ESV (Teich) 63.10 mL Conclusion 1. Biatrial enlargement, normal left ventricular size, mild concentric left ventricular hypertrophy, visually estimated ejection fraction 55% with no regional wall motion abnormality. 2. Mildly enlarged right ventricle with normal contractility. 3. No significant pericardial effusion noted. Electronically signed by : Shane Degroot, 11/11/2020 21:28:23
[2020-11-11 11:29] LABS: Procalcitonin 0.199 ng/mL (0.0-2.0)
--- NOTE | 2020-11-11 16:47 | PC.NURSE ---
Pt using 2 L O2 per nasal cannula. Fine crackles noted in bilat lower lobes, diminished throughout. HR regular. Abdomen soft, non-tender w/ active BS in all quads. Voiding per urinal w/o difficulty. Has had over 1 L of urine out this shift. Reports breathing to be better . remains @ bedside. FSBS remain high this shift, treated w/ sliding scale insulin. Call de [place]antos w/in reach. Currently sitting up in bed speaking w/ son and . No needs voiced.
[2020-11-11 17:18] LABS: Chloride 94 mmol/L (98-107); Potassium 3.9 mmoL/L (3.5-5.1); Sodium 132 mmol/L (136-145)
[2020-11-11 17:21] LABS: Anion Gap 12.9 mEq/L (5-15); Blood Urea Nitrogen 24 mg/dl (9-20); Calcium 9.1 mg/dl (8.4-10.2); Carbon Dioxide 29 mmol/L (22.0-30.0); Creatinine Clearance Estimated 51 mL/min (50-200); Estimated Glomerular Filt Rate 34 ml/min (>60); GFR (African American) 42 ML/MIN (>60); Glucose 360 mg/dl (74-100)
[2020-11-12] VITALS (10 sets, daily range): BP systolic 95–150; BP diastolic 42–57; PULSE 52–86; RESP 16–21; TEMP 36.4–36.7; O2SAT 91–97; BMI 38.7
[2020-11-12 00:59] LABS: POC Glucose,Bedside 353 (70-110)
[2020-11-12 00:59] LABS: POC Glucose,Bedside 443 (70-110)
[2020-11-12 00:59] LABS: POC Glucose,Bedside 242 (70-110)
[2020-11-12 00:59] LABS: POC Glucose,Bedside 381 (70-110)
--- NOTE | 2020-11-12 03:02 | PC.NURSE ---
VS stable, shows no acute distress noted at this time. Call light in reach, bed at lowest level for safety. Will continue to monitor.
[2020-11-12 07:50] LABS: Basophils # 0.1 K/mm3 (0-0.2); Basophils % 0.7 % (0.1-2.0); Chloride 96 mmol/L (98-107); Eosinophils # 0.1 K/mm3 (0.0-0.4); Eosinophils % 1.7 % (0.1-12.0); Hematocrit 29.9 % (42.0-52.0); Hemoglobin 9.5 g/dL (14.1-18.0); Lymphocytes % 13.5 % (10-50); Mean Corpuscular HGB Conc 31.8 g/dL (31.8-35.4); Mean Corpuscular Hemoglobin 27.8 pg (27.0-31.2); Mean Corpuscular Volume 87.4 fl (80-94); Mean Platelet Volume 7.6 fl (7.4-10.4); Monocytes # 0.5 K/mm3 (0.1-1.0); Monocytes % 6.4 % (1.7-9.3); Neutrophils # 5.7 K/mm3 (1.8-7.8); Neutrophils % 77.7 % (37.0-80.0); Platelet Count 233 K/mm3 (142-424); Red Blood Count 3.42 M/mm3 (4.60-6.20); Red Cell Distribution Width 16.6 % (11.5-17.5); Sodium 134 mmol/L (136-145); White Blood Count 7.3 K/mm3 (4.8-10.8)
[2020-11-12 07:53] LABS: Blood Urea Nitrogen 34 mg/dl (9-20); Creatinine Clearance Estimated 29 mL/min (50-200); Estimated Glomerular Filt Rate 18 ml/min (>60); GFR (African American) 22 ML/MIN (>60)
[2020-11-12 07:54] LABS: Calcium 8.6 mg/dl (8.4-10.2); Carbon Dioxide 28 mmol/L (22.0-30.0); Glucose 313 mg/dl (74-100)
--- NOTE | 2020-11-12 08:21 | XR_ITS ---
PROCEDURE: XR CHEST PORTABLE CLINICAL HISTORY: CHF COMPARISON: No exams were available for comparison FINDINGS: Prior CABG with mild cardiomegaly. No CHF. COPD changes. There are small bilateral pleural effusions with vascular crowding in the lung bases consistent with atelectasis and/or infiltrate. IMPRESSION: Cardiomegaly with small effusions and bibasilar atelectasis or infiltrate. The increased markings in the lung bases has developed since 10/30/2019 Dictated by: Massimo Gaston MD 11/12/2020 09:09 Massimo Gaston MD in [place] 11/12/2020 09:09
--- NOTE | 2020-11-12 08:51 | HMH.PNCARD ---
Subjective Date: 11/12/20 Time: 09:00 Principal diagnosis: Dyspnea Interval history: 80-year-old male admitted to [facility] with congestive heart failure and progressively worsening shortness of breath. Patient does have history of COPD. Patient denies chest pain, tightness or pressure this a.m. Patient does complain of shortness of breath especially with exertion. Patient states that shortness of breath is slightly improving. Patient does continue to be on 3 L of nasal cannula pulse oxing at 91%. Due to the congestive heart failure, aggressive diuresing began yesterday. Patient was started on Lasix 80 mg twice daily IV. Patient is down 1 pound. Patient noted with slight swelling of the lower extremities, this does seem to be improving. Creatinine level was elevated today at 3.30 with sodium 134. Will need to adjust Lasix due to creatinine level being elevated today. Patient is hypotensive. school lunch monitor reveals heart rate 56bpm. Patient states overall he is feeling much better. Pulmonology is involved in his plan of care. Pulmonology has started inhalers due to his worsening shortness of breath and COPD. Echocardiogram revealed EF 55% with no regional wall abnormality. Discussed plan of care with Dr. Aly and PCP. Will hold Lasix and Aldactone today due to elevated creatinine level and elevated potassium level. Will give normal saline 500 bolus due to renal function and hypotension. Will reevaluate creatinine and BUN in the a.m.. Determining the results of the renal function labs, will determine dosage of Lasix and Aldactone. Continue to monitor patient status. Please notify cardiology of any changes in patient status. Echo;Conclusion 1. Biatrial enlargement, normal left ventricular size, mild concentric left ventricular hypertrophy, visually estimated ejection fraction 55% with no regional wall motion abnormality. 2. Mildly enlarged right ventricle with normal contractility. 3. No significant pericardial effusion noted. Thank you for allowing cardiology to participate in the care of this patient Exam Vital signs and Labs for Last 24 Hours: Temp Pulse Resp BP Pulse Ox 98.0 F 65 20 95/53 L 91 L 11/12/20 08:00 11/12/20 08:00 11/12/20 08:00 11/12/20 08:00 11/12/20 08:00 Laboratory Results - last 24 hr 11/11/20 05:40: POC Glucose 242 H 11/11/20 06:15: Procalcitonin 0.199 11/11/20 10:53: POC Glucose 443 H* 11/11/20 15:50: POC Glucose 381 H* 11/11/20 17:00: Sodium 132 L, Potassium 3.9, Chloride 94 L, Carbon Dioxide 29, Anion Gap 12.9, BUN 24 H D, Creatinine 1.90 H, Estimated Creat Clear 51, Estimated GFR 34 L, Est GFR ( Amer) 42 L, Glucose 360 H D, Calcium 9.1 11/11/20 20:25: POC Glucose 353 H* 11/12/20 07:38: WBC 7.3, RBC 3.42 L, Hgb 9.5 L, Hct 29.9 L, MCV 87.4, MCH 27.8, MCHC 31.8, RDW 16.6, Plt Count 233, MPV 7.6, Neut % (Auto) 77.7, Lymph % (Auto) 13.5, Gove % (Auto) 6.4, Eos % (Auto) 1.7, Baso % (Auto) 0.7, Neut # (Auto) 5.7, Lymph # (Auto) 1.0, Gove # (Auto) 0.5, Eos # (Auto) 0.1, Baso # (Auto) 0.1 11/12/20 07:38: Sodium 134 L, Potassium 4.0, Chloride 96 L, Carbon Dioxide 28, Anion Gap 14.0, BUN 34 H D, Creatinine 3.30 H D, Estimated Creat Clear 29, Estimated GFR 18 L*, Est GFR ( Amer) 22 L D, Glucose 313 H, Calcium 8.6 I & O for Last 24 hours: Intake & Output 11/09/20 11/10/20 11/11/20 11/12/20 23:59 23:59 23:59 23:59 Intake Total 247 / 247 1080 / 1080 340 / 340 Output Total 500 / 500 5825 / 5825 Balance -253 / -276 -0870 / -6957 340 / 340 Weight 248 lb 2 oz 248 lb 2 oz 247 lb - Constitutional mild distress, morbidly obese, cooperative - *Routine HEENT Exam Head: Present: normocephalic ENT: Present: mucous membranes moist - *Routine Neck Exam Present: supple, full ROM, normal carotid upstroke. Absent: JVD, carotid bruit, lymphadenopathy - *Routine Respiratory Exam Present: accessory muscle use, wheezes - *Routine Cardiovascular Exam Pr
--- NOTE | 2020-11-12 10:14 | SW/DCPLANNER ---
Addendum entered by Haydee Agarwal 11/13/20 09:52: Nebulizer machine was delivered to patients room by Nancy. Patient information will also be faxed to [facility] to resume home health services. This patient will discharge home today. Original Note: I have faxed patient information/order to [facility] for a nebulizer machine. I will follow up with Nancy once patient information is reviewed. Patient will likely discharge home tomorrow pending no setbacks.
--- NOTE | 2020-11-12 10:33 | HMH.PULMPN ---
Internal Medicine - PN: Subj *Date: 11/12/20 *Time: 10:33 Interval history: No acute respiratory vents overnight. Patient respiratory status continued to improve. Exam - Constitutional Constitutional:: Present: no acute distress, comfortable - HENMT Exam HENMT: Present: normocephalic, atraumatic - Neck Exam Neck:: Present: normal visual inspection - Respiratory Exam Respiratory:: Present: able to speak in complete sentences, bibailar crackels heard. Absent: wheezing - Cardiovascular Exam Cardiac:: Present: S1, S2 - GI Exam GI:: Present: soft, obese - Skin Exam Skin: Present: warm, no rash - Neurological Exam Neurological: Present: alert, awake, normal cognition - Extremities Exam Extremities: Present: no cyanosis, no clubbing, clubbing Assessment and Plan (1) Obesity (BMI 30-39.9) Status: Chronic Category: Medical Code(s): E66.9 - Obesity, unspecified (2) Dyspnea Status: Acute Qualifiers: Dyspnea type: dyspnea on exertion Qualified Code(s): R06.00 - Dyspnea, unspecified Category: Medical Code(s): R06.00 - Dyspnea, unspecified (3) IDDM (insulin dependent diabetes mellitus) Status: Chronic Category: Medical Code(s): E11.9 - Type 2 diabetes mellitus without complications; Z79.4 - intermediate manager (current) 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 (4) Paroxysmal atrial fibrillation Status: Chronic Category: Medical Code(s): I48.0 - Paroxysmal atrial fibrillation (5) Class 2 obesity with body mass index (BMI) of 38.0 to 38.9 in adult Status: Acute Category: Medical Code(s): E66.9 - Obesity, unspecified; Z68.38 - Body mass index [BMI] 38.0-38.9, adult (6) Congestive heart failure Status: Acute Qualifiers: Heart failure type: diastolic Heart failure chronicity: acute on chronic Qualified Code(s): I50.33 - Acute on chronic diastolic (congestive) heart failure Category: Medical Code(s): I50.9 - Heart failure, unspecified (7) Shortness of breath Status: Acute Category: Medical Code(s): R06.02 - Shortness of breath (8) ERMA (acute kidney injury) Status: Acute Category: Medical Code(s): N17.9 - Acute kidney failure, unspecified (9) HHD (hypertensive heart disease) Status: Chronic Qualifiers: Heart failure presence: without heart failure Qualified Code(s): I11.9 - Hypertensive heart disease without heart failure Category: Medical Code(s): I11.9 - Hypertensive heart disease without heart failure (10) HTN (hypertension) Status: Chronic Qualifiers: Hypertension type: essential hypertension Qualified Code(s): I10 - Essential (primary) hypertension Category: Medical Code(s): I10 - Essential (primary) hypertension (11) History of coronary artery bypass graft Status: Chronic Category: Surgical Code(s): Z95.1 - Presence of aortocoronary bypass graft (12) CAD (coronary artery disease) Status: Chronic Qualifiers: Coronary Disease-Associated Artery/Lesion type: [place] artery [place] vs. transplanted heart: [place] heart Associated angina: with unspecified angina Qualified Code(s): I25.119 - Atherosclerotic heart disease of [place] coronary artery with unspecified angina pectoris Category: Medical Code(s): I25.10 - Atherosclerotic heart disease of [place] coronary artery without angina pectoris - Assessment and plan all Dx Assessment and Plan for all problems:: #Acute on chronic hypoxic respiratory failure: #COPD 80-year-old significant smoking history, sleep apnea on home nocturnal oxygen therapy, heart failure recently discharged in the hospital after being treated for COPD exacerbation with doxycycline cycling prednisone along with CHF Excedrin presented to the hospital with worsening respiratory failure. CTA did not show evidence of pulmonary symptoms no obvious airspace disease noted. Bilateral pleural effusions noted along with left fissural effusion. Patient afebrile with no evidence of leukocytosis. Examination r
--- NOTE | 2020-11-12 10:42 | PC.NURSE ---
Did clarify with Nicki Mchugh APRN and verify that she wanted to bolus on pt, she stated she did, but it could be ran slower than a bolus.
--- NOTE | 2020-11-12 16:42 | HMH.ACPN2 ---
Internal Medicine - PN: Subj *Date: 11/12/20 *Time: 08:55 Interval history: 80-year-old male patient resting in bed quietly with eyes closed, my sleeping in chair next to him. Awakens to verbal stimuli, respirations easy/even, he reports easy respirations today and no respiratory distress during the night. Lung sounds better today less bilateral lower extremity edema creatinine is up to 3.3 all diuretics will be stopped, he will receive a 500 cc bolus of normal saline. Also encouraged to be up to chair for all meals and ambulate in room as able Exam Vital signs and Labs for Last 24 Hours: Temp Pulse Resp BP Pulse Ox 98.0 F 72 20 95/53 L 91 L 11/12/20 08:00 11/12/20 12:57 11/12/20 08:00 11/12/20 08:00 11/12/20 08:00 Laboratory Results - last 24 hr 11/11/20 05:40: POC Glucose 242 H 11/11/20 10:53: POC Glucose 443 H* 11/11/20 15:50: POC Glucose 381 H* 11/11/20 17:00: Sodium 132 L, Potassium 3.9, Chloride 94 L, Carbon Dioxide 29, Anion Gap 12.9, BUN 24 H D, Creatinine 1.90 H, Estimated Creat Clear 51, Estimated GFR 34 L, Est GFR ( Amer) 42 L, Glucose 360 H D, Calcium 9.1 11/11/20 20:25: POC Glucose 353 H* 11/12/20 07:38: WBC 7.3, RBC 3.42 L, Hgb 9.5 L, Hct 29.9 L, MCV 87.4, MCH 27.8, MCHC 31.8, RDW 16.6, Plt Count 233, MPV 7.6, Neut % (Auto) 77.7, Lymph % (Auto) 13.5, [place] % (Auto) 6.4, Eos % (Auto) 1.7, Baso % (Auto) 0.7, Neut # (Auto) 5.7, Lymph # (Auto) 1.0, [place] # (Auto) 0.5, Eos # (Auto) 0.1, Baso # (Auto) 0.1 11/12/20 07:38: Sodium 134 L, Potassium 4.0, Chloride 96 L, Carbon Dioxide 28, Anion Gap 14.0, BUN 34 H D, Creatinine 3.30 H D, Estimated Creat Clear 29, Estimated GFR 18 L*, Est GFR ( Amer) 22 L D, Glucose 313 H, Calcium 8.6 I & O for Last 24 hours: Intake & Output 11/09/20 11/10/20 11/11/20 11/12/20 23:59 23:59 23:59 23:59 Intake Total 247 / 247 1080 / 1080 700 / 700 Output Total 500 / 500 5825 / 5825 300 / 300 Balance -253 / -253 -4745 / -4745 400 / 400 Weight 248 lb 2 oz 248 lb 2 oz 246 lb 14.684 oz - Constitutional no acute distress, morbidly obese - *Routine Respiratory Exam Present: decreased breath sounds, rales - *Routine Cardiovascular Exam Present: RRR - *Routine Abdominal Exam Present: soft, tenderness, guarding, obese - *Routine Extremities Exam Present: full ROM, pulses intact. Absent: cyanosis, clubbing, calf tenderness - *Routine Skin Exam Present: intact, dry, warm. Absent: cyanosis, erythema - *Routine Neurological Exam Present: alert, oriented X3. Absent: altered mental status - Routine Psychiatric Exam Present: normal affect, normal thought process. Absent: auditory hallucinations, visual hallucinations Assessment and Plan (1) Obesity (BMI 30-39.9) Status: Chronic Category: Medical Code(s): E66.9 - Obesity, unspecified (2) Dyspnea Status: Acute Qualifiers: Dyspnea type: dyspnea on exertion Qualified Code(s): R06.00 - Dyspnea, unspecified Category: Medical Code(s): R06.00 - Dyspnea, unspecified (3) IDDM (insulin dependent diabetes mellitus) Status: Chronic Category: Medical Code(s): E11.9 - Type 2 diabetes mellitus without complications; Z79.4 - care home (current) 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 (4) Paroxysmal atrial fibrillation Status: Chronic Category: Medical Code(s): I48.0 - Paroxysmal atrial fibrillation (5) Class 2 obesity with body mass index (BMI) of 38.0 to 38.9 in adult Status: Acute Category: Medical Code(s): E66.9 - Obesity, unspecified; Z68.38 - Body mass index [BMI] 38.0-38.9, adult (6) Congestive heart failure Status: Acute Qualifiers: Heart failure type: diastolic Heart failure chronicity: acute on chronic Qualified Code(s): I50.33 - Acute on chronic diastolic (congestive) heart failure Category: Medical Code(s): I50.9 - Heart failure, unspecified (7) Shortness of breath Status: Acute Category: Medical Code(s): R06.02 - Shortness of breath (8) ERMA (acute kidney
[2020-11-12 16:44] LABS: POC Glucose,Bedside 315 (70-110)
[2020-11-12 16:44] LABS: POC Glucose,Bedside 339 (70-110)
[2020-11-12 16:44] LABS: POC Glucose,Bedside 418 (70-110)
--- NOTE | 2020-11-12 18:03 | PC.NURSE ---
pt unable to cough anything up at this time. left cup at bedside
--- NOTE | 2020-11-12 19:27 | PC.NURSE ---
No acute changes this shift. RR even and unlabored, continues on 3 L NC. Did receive a 500 ml bolus earlier today and tolerate well. BP improved. Did hold lasix this am. Lungs cta. s1,s2. BS x 4 quads.
[2020-11-12 21:03] LABS: POC Glucose,Bedside 515 (70-110)
[2020-11-12 21:57] LABS: Glucose,Random 527 mg/dL (74-100)
[2020-11-13] VITALS: O2SAT 96
[2020-11-13 00:16] VITALS: PULSE 68; PULSE 69
[2020-11-13 04:00] VITALS: BP 112/53; PULSE 63; RESP 17; TEMP 36.7; O2SAT 94
[2020-11-13 05:00] VITALS: BMI 37.0
[2020-11-13 05:27] LABS: POC Glucose,Bedside 356 (70-110)
--- NOTE | 2020-11-13 05:45 | PC.NURSE ---
Patient up and walked to chair without O2 and remained in low 90's for approximately 3 minutes. O2 reapplied 02 sats increased to high 90's. Patient sat on side of bed most of evening until approximately 0100. Patient denies SOA. FSBS was 515 at 2100. Stat Glucose level drawn and reported as 527. Spoke with Dr. Heath (on-call physician) received new orders for Humalog Insulin 30 units x 1 dose & to change Humalog from Medium intensity to High intensity level and start Lantus 15 units at HS. FSBS this AM 0600 was 353 administered 15 units of Humalog. Patient has shown no s/s of acute distress at any time this shift. Call light within reach, bed at lowest level for safety; will continue to monitor.
[2020-11-13 05:55] VITALS: PULSE 58; O2SAT 95
--- NOTE | 2020-11-13 06:00 | XR_ITS ---
PROCEDURE: XR CHEST PORTABLE CLINICAL HISTORY: CHF COMPARISON: CR XR CHEST 2V from 10/28/2020 CR XR CHEST PORTABLE from 10/29/[address] ANGIO CHEST from 11/10/2020 CR XR CHEST PORTABLE from 11/12/2020 FINDINGS: Prior CABG. Normal heart size. Mild atelectatic changes in the left upper lobe and right lung base. No acute bony abnormalities. IMPRESSION: Mild atelectasis left upper lobe and right lung base Dictated by: Massimo Gaston MD 11/13/2020 06:05 Massimo Gaston MD in [facility] 11/13/2020 06:05
[2020-11-13 06:49] LABS: Basophils % 0.7 % (0.1-2.0); Eosinophils # 0.2 K/mm3 (0.0-0.4); Eosinophils % 3.8 % (0.1-12.0); Hematocrit 29.4 % (42.0-52.0); Hemoglobin 9.3 g/dL (14.1-18.0); Lymphocytes # 0.9 K/mm3 (0.7-4.5); Lymphocytes % 14.2 % (10-50); Mean Corpuscular HGB Conc 31.5 g/dL (31.8-35.4); Mean Corpuscular Hemoglobin 27.7 pg (27.0-31.2); Mean Corpuscular Volume 87.8 fl (80-94); Mean Platelet Volume 7.4 fl (7.4-10.4); Monocytes # 0.4 K/mm3 (0.1-1.0); Monocytes % 6.3 % (1.7-9.3); Neutrophils # 4.5 K/mm3 (1.8-7.8); Neutrophils % 74.9 % (37.0-80.0); Platelet Count 192 K/mm3 (142-424); Red Blood Count 3.35 M/mm3 (4.60-6.20); Red Cell Distribution Width 16.6 % (11.5-17.5)
[2020-11-13 07:01] LABS: Chloride 98 mmol/L (98-107); Potassium 4.3 mmoL/L (3.5-5.1); Sodium 134 mmol/L (136-145)
[2020-11-13 07:04] LABS: Anion Gap 14.3 mEq/L (5-15); Blood Urea Nitrogen 43 mg/dl (9-20); Calcium 8.2 mg/dl (8.4-10.2); Carbon Dioxide 26 mmol/L (22.0-30.0); Creatinine Clearance Estimated 35 mL/min (50-200); Estimated Glomerular Filt Rate 24 ml/min (>60); GFR (African American) 29 ML/MIN (>60); Glucose 316 mg/dl (74-100)
[2020-11-13 07:48] VITALS: BP 133/53; PULSE 75; RESP 18; TEMP 36.6; O2SAT 95
--- NOTE | 2020-11-13 09:42 | HMH.PTEV ---
Physical Therapy Evaluation Rehab PT IP Evaluation Start: 11/12/20 21:53 Freq: .once Status: Active Protocol: Document 11/13/20 09:40 JOSE (Rec: 11/13/20 09:42 JOSE [id number]) Subjective/History History History 80-year-old male patient presents to emergency department from PCP office for increased shortness of breath . Patient reports increasing shortness of breath over the last several days, was recently discharged from hospital with pneumonia and doxycycline. Patient also has significant history for CHF, COPD, and diabetes Subjective Subjective Pt has no complaints at this time Rehab PT IP Eval Objective Appearance Patient Behavior Appropriate,Cooperative Patient Orientation Person,Place,Time Difficulty following instructions none Speech Pattern Clear,Appropriate Ambulation Patient Able to Ambulate Yes Ambulation Observation IP General Gait Pattern Observation No Deviations/Normal Ambulation Distance (feet) 50 Ambulation Assistive Device None Ambulation Ability Independent Balance Ability to Arise Able, uses arms to help Sitting Balance Steady, safe Standing Balance Narrow stance w/o support Dynamic Sitting Balance Ability Normal Dynamic Standing Balance Ability Good Transfers Chair Transfer Ability Independent Sit to Stand Bed Transfer Ability Independent Sit to Stand Chair Transfer Ability Independent ROM All Extremities PT ROM Status WFL MMT All Extremities PT MMT WFL Rehab PT IP prob,goals,plan Problems Date of Evaluation: 11/13/20 Rehab Potential Rehab Potential Innapropriate for Skilled Therapy Discharge Plan PT Discharge Plan pt safe to return home once medically stable - no skilled therapy needs at this time G -code Required Yes Eval Complexity Eval Charge Codes 34833 - Low Complexity G Codes PT Current Status Mobility PT Current Status Modifier CI-At least 1% but less than 20% impaired, limited or restricted PT Goal Status Mobility PT Goal Status Modifer CI-At least 1% but less than 20% impaired, li
--- NOTE | 2020-11-13 09:53 | HMH.PNCARD ---
Subjective Date: 11/13/20 Time: 10:19 Principal diagnosis: Dyspnea Interval history: This is a 80-year-old white gentleman who was admitted to the hospital with congestive heart failure with progressively worsening shortness of breath. The patient was diuresed with IV Lasix. His creatinine elevated to 3.30 and a sodium of 134. His diuretics were stopped and his creatinine has improved today. This morning he states his shortness of breath is significantly improved. He states he is still mildly short of breath with exertion but it is much better than it was. He denies any edema. He denies any chest pain or pressure. He denies any fever, chills, nausea, vomiting, diarrhea, PND orthopnea. Exam Vital signs and Labs for Last 24 Hours: Temp Pulse Resp BP Pulse Ox 97.8 F 75 18 133/53 L 95 11/13/20 07:48 11/13/20 07:48 11/13/20 07:48 11/13/20 07:48 11/13/20 07:48 Laboratory Results - last 24 hr 11/12/20 06:00: POC Glucose 339 H* 11/12/20 11:19: POC Glucose 315 H* 11/12/20 16:17: POC Glucose 418 H* 11/12/20 20:41: POC Glucose 515 H* 11/12/20 21:20: Random Glucose 527 H* 11/13/20 05:15: POC Glucose 356 H* 11/13/20 05:30: WBC 6.0, RBC 3.35 L, Hgb 9.3 L, Hct 29.4 L, MCV 87.8, MCH 27.7, MCHC 31.5 L, RDW 16.6, Plt Count 192, MPV 7.4, Neut % (Auto) 74.9, Lymph % (Auto) 14.2, [place] % (Auto) 6.3, Eos % (Auto) 3.8, Baso % (Auto) 0.7, Neut # (Auto) 4.5, Lymph # (Auto) 0.9, [place] # (Auto) 0.4, Eos # (Auto) 0.2, Baso # (Auto) 0.0 11/13/20 05:30: Sodium 134 L, Potassium 4.3, Chloride 98, Carbon Dioxide 26, Anion Gap 14.3, BUN 43 H D, Creatinine 2.60 H D, Estimated Creat Clear 35, Estimated GFR 24 L, Est GFR ( Amer) 29 L D, Glucose 316 H, Calcium 8.2 L I & O for Last 24 hours: Intake & Output 11/10/20 11/11/20 11/12/20 11/13/20 23:59 23:59 23:59 23:59 Intake Total 247 / 247 1080 / 1080 1680 / 1680 360 / 360 Output Total 500 / 500 5825 / 5825 300 / 450 700 / 700 Balance -253 / -253 -4745 / -4745 1380 / 1230 -340 / -340 Weight 248 lb 2 oz 248 lb 2 oz 246 lb 14.684 oz 236 lb 2 oz - Constitutional no acute distress, obese - *Routine HEENT Exam Head: Present: normocephalic, atraumatic Eye: Present: EOMI, PERRL ENT: Present: mucous membranes moist - *Routine Neck Exam Present: supple, full ROM, normal carotid upstroke. Absent: JVD, carotid bruit, lymphadenopathy - *Routine Respiratory Exam Present: CTA bilaterally - *Routine Cardiovascular Exam Present: RRR, Normal S1, Normal S2. Absent: murmur, gallop - *Routine Abdominal Exam Present: soft, normoactive bowel sounds. Absent: tenderness, distended - *Routine Extremities Exam Present: full ROM, pulses intact, normal capillary refill. Absent: cyanosis, clubbing, edema - *Routine Skin Exam Present: intact, warm. Absent: erythema, rash - *Routine Neurological Exam Present: alert, oriented X3, CN II-XII intact. Absent: sensory deficit, motor deficit Progress Note: A&P (1) Shortness of breath Status: Acute (2) Obesity (BMI 30-39.9) Status: Chronic (3) IDDM (insulin dependent diabetes mellitus) Status: Chronic (4) Paroxysmal atrial fibrillation Status: Chronic (5) Class 2 obesity with body mass index (BMI) of 38.0 to 38.9 in adult Status: Acute (6) Congestive heart failure Status: Acute (7) ERMA (acute kidney injury) Status: Acute (8) HHD (hypertensive heart disease) Status: Chronic (9) HTN (hypertension) Status: Chronic (10) History of coronary artery bypass graft Status: Chronic (11) CAD (coronary artery disease) Status: Chronic Assessment and Plan for All Diagnoses:: Plan: 1. The patient was admitted to the hospital with increased shortness of breath and he was found to be in congestive heart failure. The patient was diuresed with IV Lasix and his creatinine elevated to 3.3. His Lasix was stopped as well as his Aldactone. His creatinine has improved today to 2.6. We will restart him on oral L
[2020-11-13 11:05] VITALS: PULSE 61; PULSE 65; O2SAT 96
--- NOTE | 2020-11-13 11:29 | PC.NURSE ---
Report given to Irene CloudRN
[2020-11-13 11:48] LABS: POC Glucose,Bedside 584 (70-110)
[2020-11-13 12:26] LABS: Glucose,Random 559 mg/dL (74-100)
--- NOTE | 2020-11-13 12:49 | HMH.DCSUM ---
General - General Admission date:: 11/10/20 Discharge date: 11/13/20 HPI HPI: 80-year-old male patient presents to emergency department from PCP office for increased shortness of breath. Patient reports increasing shortness of breath over the last several days, was recently discharged from hospital with pneumonia and doxycycline. Patient also has significant history for CHF, COPD, and diabetes. Primary care physician was also concerned with possible DVT. Patient also reports using as needed oxygen at home 11/10/20 CX R: IMPRESSION: 1. No evidence of pulmonary embolus. 2. Small bilateral pleural effusions with fissural fluid on the left with bibasilar atelectasis 3. At least 2 perifissural nodules on the right in the minor fissure and 1 along the left major fissure at 4 mm. Probably benign. Suggest 6 month follow-up to confirm stability Dictated by: Alek, 80-year-old male patient sitting up in bed resting quietly respirations easy/even, he reports feeling better today than last night, denies chest pain. Patient is receiving IV Lasix with a good diuresis during the night. Hospital Course Hospital Course: Laboratory Tests 11/10/20 11/10/20 11/10/20 14:50 14:50 14:50 WBC RBC Hgb Hct MCV MCH MCHC RDW Plt Count MPV Neut % (Auto) Lymph % (Auto) [place] % (Auto) Eos % (Auto) Baso % (Auto) Neut # (Auto) Lymph # (Auto) [place] # (Auto) Eos # (Auto) Baso # (Auto) Total Counted Neutrophils % (Manual) Lymphocytes % (Manual) Monocytes % (Manual) Eosinophils % (Manual) Platelet Estimate RBC Morphology D-Dimer 0.61 H Sodium 139 Potassium 4.2 Chloride 106 Carbon Dioxide 24 Anion Gap 13.2 BUN 19 Creatinine 1.50 H Estimated Creat Clear 63 Estimated GFR 45 L Est GFR ( Amer) 55 L Glucose 223 H POC Glucose Random Glucose Calcium 9.0 NT-Pro-B Natriuret Pep 2600 H Procalcitonin Chlamy pneumoniae PCR Adenovirus (PCR) B. pertussis DNA (PCR) Coronavirus OC43 (PCR) Coronavirus HKU1 (PCR) Coronavirus 229E (PCR) SARS-CoV-2 (PCR) Coronavirus NL63 (PCR) Human Metapneumovir PCR Influenza A (H1) PCR Influ A (H1N1/09) PCR Influenza A (H3) PCR Influenza Type A (PCR) Influenza Type B (PCR) M. pneumoniae (PCR) Parainfluenza 1 (PCR) Parainfluenza 2 (PCR) Parainfluenza 3 (PCR) Parainfluenza 4 (PCR) RSV (PCR) Entero/Rhino (PCR) 11/10/20 11/10/20 11/10/20 14:50 18:36 23:42 WBC 9.4 RBC 3.64 L Hgb 9.9 L Hct 32.6 L MCV 89.4 MCH 27.1 MCHC 30.3 L RDW 16.3 Plt Count 240 MPV 7.9 Neut % (Auto) 86.8 H Lymph % (Auto) 6.4 L [place] % (Auto) 5.2 Eos % (Auto) 1.3 Baso % (Auto) 0.3 Neut # (Auto) 8.1 H Lymph # (Auto) 0.6 L [place] # (Auto) 0.5 Eos # (Auto) 0.1 Baso # (Auto) 0.0 Total Counted 100 Neutrophils % (Manual) 90 H Lymphocytes % (Manual) 4 L Monocytes % (Manual) 4 Eosinophils % (Manual) 2 Platelet Estimate Normal RBC Morphology Normal D-Dimer Sodium Potassium Chloride Carbon Dioxide Anion Gap BUN Creatinine Estimated Creat Clear Estimated GFR Est GFR ( Amer) Glucose POC Glucose 171 H Random Glucose Calcium NT-Pro-B Natriuret Pep Procalcitonin [place]lamy pneumoniae PCR Not detected Adenovirus (PCR) Not detected B. pertussis DNA (PCR) Not detected Coronavirus OC43 (PCR) Not detected Coronavirus HKU1 (PCR) Not detected Coronavirus 229E (PCR) Not detected SARS-CoV-2 (PCR) Not detected Coronavirus NL63 (PCR) Not detected Human Metapneumovir PCR Not detected Influenza A (H1) PCR Not detected Influ A (H1N1/09) PCR Not detected Influenza A (H3) PCR Not detected Influenza Type A (PCR) Not detected Influenza Type B (PCR)
--- NOTE | 2020-11-13 12:50 | HMH.PULMPN ---
Internal Medicine - PN: Subj *Date: 11/13/20 *Time: 12:51 Interval history: No acute respiratory vents overnight. Patient continued to improve with diuresis Exam - Constitutional Constitutional:: Present: no acute distress, comfortable - HENMT Exam HENMT: Present: normocephalic, atraumatic - Eye Exam Eyes:: Present: normal appearance both eyes and related structures - Neck Exam Neck:: Present: normal visual inspection - Respiratory Exam Respiratory:: Present: able to speak in complete sentences, no respiratory distress, normal respiratory effort, crackles. Absent: wheezing - Cardiovascular Exam Cardiac:: Present: S1, S2 - GI Exam GI:: Present: soft, obese - Skin Exam Skin: Present: warm, no rash - Neurological Exam Neurological: Present: alert, awake, normal cognition - Extremities Exam Extremities: Present: no cyanosis, no clubbing, edema Assessment and Plan (1) Shortness of breath Status: Acute Category: Medical Code(s): R06.02 - Shortness of breath (2) Obesity (BMI 30-39.9) Status: Chronic Category: Medical Code(s): E66.9 - Obesity, unspecified (3) IDDM (insulin dependent diabetes mellitus) Status: Chronic Category: Medical Code(s): E11.9 - Type 2 diabetes mellitus without complications; Z79.4 - terminal press operator (current) 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 (4) Paroxysmal atrial fibrillation Status: Chronic Category: Medical Code(s): I48.0 - Paroxysmal atrial fibrillation (5) Class 2 obesity with body mass index (BMI) of 38.0 to 38.9 in adult Status: Acute Category: Medical Code(s): E66.9 - Obesity, unspecified; Z68.38 - Body mass index [BMI] 38.0-38.9, adult (6) Congestive heart failure Status: Acute Qualifiers: Heart failure type: diastolic Heart failure chronicity: acute on chronic Qualified Code(s): I50.33 - Acute on chronic diastolic (congestive) heart failure Category: Medical Code(s): I50.9 - Heart failure, unspecified (7) ERMA (acute kidney injury) Status: Acute Category: Medical Code(s): N17.9 - Acute kidney failure, unspecified (8) HHD (hypertensive heart disease) Status: Chronic Qualifiers: Heart failure presence: without heart failure Qualified Code(s): I11.9 - Hypertensive heart disease without heart failure Category: Medical Code(s): I11.9 - Hypertensive heart disease without heart failure (9) HTN (hypertension) Status: Chronic Qualifiers: Hypertension type: essential hypertension Qualified Code(s): I10 - Essential (primary) hypertension Category: Medical Code(s): I10 - Essential (primary) hypertension (10) History of coronary artery bypass graft Status: Chronic Category: Surgical Code(s): Z95.1 - Presence of aortocoronary bypass graft (11) CAD (coronary artery disease) Status: Chronic Qualifiers: Coronary Disease-Associated Artery/Lesion type: [place] artery [place] vs. transplanted heart: [place] heart Associated angina: with unspecified angina Category: Medical Code(s): I25.10 - Atherosclerotic heart disease of [place] coronary artery without angina pectoris - Assessment and plan all Dx Assessment and Plan for all problems:: #Acute on chronic hypoxic respiratory failure: #COPD 80-year-old significant smoking history, sleep apnea on home nocturnal oxygen therapy, heart failure recently discharged in the hospital after being treated for COPD exacerbation with doxycycline cycling prednisone along with CHF Excedrin presented to the hospital with worsening respiratory failure. CTA did not show evidence of pulmonary symptoms no obvious airspace disease noted. Bilateral pleural effusions noted along with left fissural effusion. Patient afebrile with no evidence of leukocytosis. Examination revealed bilateral lower extremity edema. BNP elevated even compared to recent hospital admission along with worsening creatinine. Patient acute respiratory likely combination of his underlying COPD along with CHF
--- NOTE | 2020-11-13 13:43 | PC.NURSE ---
per Néstor Mai [employer]PLIANCE INST[employer]ER stated to d/c sliding scale ordered for home and to resume regular home insulin regimen. order read back for verification.
--- NOTE | 2020-11-13 13:54 | PC.NURSE ---
1215 md aware of critical glucose level. new orders given and carried out.
== END 2020-11-13 14:36 | disposition home or self-care (01) ==
LOC: ER 14:12 → 2ND 18:42
PROVIDERS: Internal Medicine Pulmonary Disease; Nurse Practitioner Family; Admitting Provider Family Medicine; Emergency Provider Family Medicine; PCP Family Medicine; Visit Provider Family Medicine
DX: J96.21 Acute and chronic respiratory failure with hypoxia (principal); Z99.81 Dependence on supplemental oxygen; I50.33 Acute on chronic diastolic (congestive) heart failure; I48.0 Paroxysmal atrial fibrillation; I11.0 Hypertensive heart disease with heart failure; R06.00 Dyspnea, unspecified; I25.2 Old myocardial infarction; Z95.1 Presence of aortocoronary bypass graft; E11.9 Type 2 diabetes mellitus without complications; Z79.4 Long term (current) 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; Z88.2 Allergy status to sulfonamides; Z88.5 Allergy status to narcotic agent; N17.9 Acute kidney failure, unspecified; I25.118 Atherosclerotic heart disease of native coronary artery with other forms of angina pectoris; Z79.899 Other long term (current) drug therapy
CPT/HCPCS: 36415; 71045; 71275; 80048; 82947; 82962; 83880; 84145; 85007; 85025; 85378; 87070; 87205; 87581; 87633; 87798; 93005; 93308; 93970; 94640; 94760; 94761; 97161; 99284; G0378; Q9967

== ENCOUNTER → 2020-11-28 16:41 | Outpatient (CLI) | payer MEDICARE, OTHER, SELFPAY ==
[2020-11-28 17:11] LABS: Basophils % 0.7 % (0.1-2.0); Eosinophils # 0.3 K/mm3 (0.0-0.4); Eosinophils % 4.3 % (0.1-12.0); Hematocrit 33.1 % (42.0-52.0); Hemoglobin 10.4 g/dL (14.1-18.0); Lymphocytes # 1.2 K/mm3 (0.7-4.5); Lymphocytes % 18.6 % (10-50); Mean Corpuscular HGB Conc 31.3 g/dL (31.8-35.4); Mean Corpuscular Hemoglobin 26.9 pg (27.0-31.2); Mean Platelet Volume 7.9 fl (7.4-10.4); Monocytes # 0.5 K/mm3 (0.1-1.0); Monocytes % 7.9 % (1.7-9.3); Neutrophils # 4.4 K/mm3 (1.8-7.8); Neutrophils % 68.6 % (37.0-80.0); Platelet Count 229 K/mm3 (142-424); Red Blood Count 3.85 M/mm3 (4.60-6.20); Red Cell Distribution Width 16.8 % (11.5-17.5); White Blood Count 6.3 K/mm3 (4.8-10.8)
[2020-11-28 17:33] LABS: Chloride 98 mmol/L (98-107); Sodium 135 mmol/L (136-145)
[2020-11-28 17:35] LABS: Alanine Aminotransferase 16 U/L (12-78); Aspartate Amino Transferase 24 U/L (17-59); Blood Urea Nitrogen 30 mg/dl (9-20); Estimated Glomerular Filt Rate 42 ml/min (>60); GFR (African American) 51 ML/MIN (>60)
[2020-11-28 17:36] LABS: Albumin Level 4.1 g/dl (3.5-5.0); Albumin/Globulin Ratio 1.7 (1.1-1.8); Alkaline Phosphatase 103 U/L (38-126); Bilirubin,Total 0.6 mg/dl (0.2-1.3); Carbon Dioxide 27 mmol/L (22.0-30.0); Globulin 2.4 g/dL (1.3-3.2); Glucose 282 mg/dl (74-100); Total Protein,Serum 6.5 g/dl (6.3-8.2)
[2020-11-28 17:52] LABS: Hemoglobin A1C 9.4 % (4.0-6.0)
== END ==
PROVIDERS: Visit Provider Family Medicine
DX: E11.9 Type 2 diabetes mellitus without complications (principal); I50.9 Heart failure, unspecified; E16.2 Hypoglycemia, unspecified; Z79.4 Long term (current) 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
CPT/HCPCS: 80053; 83036; 85025

== ENCOUNTER → 2020-12-26 17:21 | Outpatient (CLI) | payer MEDICARE, SELFPAY ==
[2020-12-26 20:28] LABS: Creatinine,Urine Random 62 mg/dL (Not Estab.)
== END ==
PROVIDERS: Visit Provider Nurse Practitioner Family
DX: E11.9 Type 2 diabetes mellitus without complications (principal); Z79.4 Long term (current) 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
CPT/HCPCS: 82043; 82570

== ENCOUNTER → 2021-01-09 14:47 | Outpatient (CLI) | payer MEDICARE, SELFPAY | PROVIDERS: PCP Family Medicine; Visit Provider Internal Medicine Pulmonary Disease | DX: R06.02 Shortness of breath (principal) | CPT/HCPCS: 94060; 94727; 94729 ==

== ENCOUNTER 2021-04-21 23:44 | Emergency (ER) | payer MEDICARE, OTHER, SELFPAY ==
[2021-04-21 23:48] VITALS: BP 184/68; PULSE 76; RESP 16; TEMP 36.8; O2SAT 93; BMI 35.5
[2021-04-22 00:05] LABS: POC Glucose,Bedside 531 (70-110)
--- NOTE | 2021-04-22 00:25 | HMH.EDDIZZ ---
ED Disposition Clinical Impression: Dizziness, Obesity (BMI 30-39.9), IDDM (insulin dependent diabetes mellitus) Disposition: Home, Self-Care Condition on Discharge: Good Instructions: Dizziness, Nonvertigo Additional Instructions: fluids and see pcp for follow up and resume meds Referrals: Andres Valencia MD [Primary Care Provider] - - Critical Care Critical Care Time: No Attestation: On 04/21/21, the high probability of a clinically significant, sudden or life threatening deterioration of the following system(s) required my full and direct attention, intervention and personal management. The time I documented below is in addition to time spent performing reported procedures but includes the following listed in this critical care notation. Medical Decision Making - Medical Records Medical records reviewed: Yes: I reviewed the patient's medical records. - Bill Inquiry Pt receiving controlled substance: No Vital Signs: 04/21/21 23:48 Temperature 98.2 F Temperature Source Oral Pulse Rate [Right] 76 Respiratory Rate 16 Blood Pressure [Right Arm] 184/68 H Blood Pressure Mean [Right Arm] 106 Blood Pressure Source [Right Arm] Automatic Cuff 02 Sat by Pulse Oximetry 93 L Oxygen Delivery Method Room Air - Lab Data Lab results reviewed: Yes: I reviewed the patient's lab results. Lab Results 04/21/21 23:55: POC Glucose 531 H* 04/22/21 00:24: WBC 8.3, RBC 4.22 L, Hgb 9.6 L, Hct 33.2 L, MCV 78.6 L, MCH 22.8 L, MCHC 29.1 L, RDW 17.3, Plt Count 327, MPV 8.7, Neut % (Auto) 76.7, Lymph % (Auto) 14.6, Major % (Auto) 5.6, Eos % (Auto) 2.5, Baso % (Auto) 0.5, Neut # (Auto) 6.4, Lymph # (Auto) 1.2, [place] # (Auto) 0.5, Eos # (Auto) 0.2, Baso # (Auto) 0.0 04/22/21 00:24: Sodium 134 L, Potassium 4.8, Chloride 95 L, Carbon Dioxide 25, Anion Gap 18.8 H, BUN 33 H, Creatinine 1.80 H, Estimated Creat Clear 48, Estimated GFR 37 L, Est GFR ( Amer) 44 L, Glucose 557 H*, Calcium 8.6, Total Bilirubin 0.6, AST 28, ALT 21, Alkaline Phosphatase 99, Total Protein 7.0, Albumin 4.1, Globulin 2.9, Albumin/Globulin Ratio 1.4, Acetone Level None detected 04/22/21 00:37: Urine Color Yellow, Urine Appearance Clear, Urine pH 6.0, Ur Specific [place] 1.015, Urine Protein Negative, Urine Glucose (UA) 3+, Urine Ketones Negative, Urine Blood Negative, Urine Nitrate Negative, Urine Bilirubin Negative, Urine Urobilinogen 0.2, Ur Leukocyte Esterase Negative, Urine WBC Occasional, Urine Bacteria Trace 04/22/21 01:55: POC Glucose 418 H* Result diagrams: 04/22/21 00:24 04/22/21 00:24 Orders (Tests/Meds): ED MEDICATIONS Generic Name Dose Route Start Last Admin Trade Name Freq PRN Reason Stop Dose Admin Sodium Chloride 1,000 mls @ 999 mls/hr 04/22/21 00:30 04/22/21 00:29 Sod Chlor 0.9% 1000ml Bag IV 04/22/21 01:30 999 mls/hr .Q1H1M MARYAN Administration Discontinued Medications Generic Name Dose Route Start Last Admin Trade Name Freq PRN Reason Stop Dose Admin Insulin Human Regular 5 unit 04/22/21 00:28 04/22/21 00:32 Insulin Human Regular 100 Units/Ml 10ml Vial IVP 04/22/21 00:29 5 unit ONCE ONE Administration - Reevaluation(s) Time: 02:44 Reevaluation #1: improved Medical Decision Narrative: discussed need for compliance with meds and diet Dizzy HPI - General Chief Complaint: Dizziness Stated Complaint: High Blood Sugar Time Seen by Provider: 04/22/21 00:25 Mode of Arrival: Ambulatory Source of Information: Patient, Medical Record Limitations: No Limitations Description of Symptoms (Recalled from ER Triage Doc. by RN): pt states his sugar is 501, I'm dizzy headed trouble seeing and feel terrible - History of Present Illness HPI Narrative: has elevated glu and does not feel well - reports compliant with meds but not diet has chf and uses home o2 - no chest pain or fever - but has element of dizzyness MD complaint: dizziness Onset (ago): hour(s) Timing: gradual onset, waxing/waning Descrip
[2021-04-22 00:32] LABS: Basophils % 0.5 % (0.1-2.0); Eosinophils # 0.2 K/mm3 (0.0-0.4); Eosinophils % 2.5 % (0.1-12.0); Hematocrit 33.2 % (42.0-52.0); Hemoglobin 9.6 g/dL (14.1-18.0); Lymphocytes # 1.2 K/mm3 (0.7-4.5); Lymphocytes % 14.6 % (10-50); Mean Corpuscular HGB Conc 29.1 g/dL (31.8-35.4); Mean Corpuscular Hemoglobin 22.8 pg (27.0-31.2); Mean Corpuscular Volume 78.6 fl (80-94); Mean Platelet Volume 8.7 fl (7.4-10.4); Monocytes # 0.5 K/mm3 (0.1-1.0); Monocytes % 5.6 % (1.7-9.3); Neutrophils # 6.4 K/mm3 (1.8-7.8); Neutrophils % 76.7 % (37.0-80.0); Platelet Count 327 K/mm3 (142-424); Red Blood Count 4.22 M/mm3 (4.60-6.20); Red Cell Distribution Width 17.3 % (11.5-17.5); White Blood Count 8.3 K/mm3 (4.8-10.8)
[2021-04-22 00:36] LABS: Chloride 95 mmol/L (98-107); Potassium 4.8 mmoL/L (3.5-5.1); Sodium 134 mmol/L (136-145)
[2021-04-22 00:38] LABS: Alanine Aminotransferase 21 U/L (12-78); Aspartate Amino Transferase 28 U/L (17-59); Blood Urea Nitrogen 33 mg/dl (9-20); Creatinine Clearance Estimated 48 mL/min (50-200); Estimated Glomerular Filt Rate 37 ml/min (>60); GFR (African American) 44 ML/MIN (>60)
[2021-04-22 00:39] LABS: Albumin Level 4.1 g/dl (3.5-5.0); Albumin/Globulin Ratio 1.4 (1.1-1.8); Alkaline Phosphatase 99 U/L (38-126); Anion Gap 18.8 mEq/L (5-15); Bilirubin,Total 0.6 mg/dl (0.2-1.3); Calcium 8.6 mg/dl (8.4-10.2); Carbon Dioxide 25 mmol/L (22.0-30.0); Globulin 2.9 g/dL (1.3-3.2)
[2021-04-22 00:40] LABS: Microscopic, Urine URINE MICROSCOPIC (MICROSCOPIC)
[2021-04-22 00:41] VITALS: BP 174/73; PULSE 74; O2SAT 93
[2021-04-22 00:42] LABS: Appearance,Urine CLEAR (Clear); Bilirubin,Urine Negative (Negative); Blood, Urine Negative (Negative); Color,Urine YELLOW (Yellow); Glucose,Urine (UA) 3+ (Negative); Ketones,Urine Negative (Negative); Leukocyte Esterase,Urine Negative (Negative); Nitrate,Urine Negative (Negative); Protein,Urine Negative (Negative); Specific Gravity, Urine 1.015 (1.005-1.030); Urobilinogen,Urine 0.2 EU/dl (0.2)
[2021-04-22 00:46] LABS: Acetone, Serum (Rapid) None Detected (None Detect); Glucose 557 mg/dl (74-100)
--- NOTE | 2021-04-22 00:47 | PC.NURSE ---
glucose 557
[2021-04-22 01:00] VITALS: BP 192/75; PULSE 70; O2SAT 94
[2021-04-22 01:06] LABS: Bacteria,Urine Trace /lpf; WBC,Urine Occasional #/hpf (0-3)
[2021-04-22 01:30] VITALS: BP 165/65; PULSE 71; O2SAT 94
[2021-04-22 02:01] LABS: POC Glucose,Bedside 418 (70-110)
[2021-04-22 02:43] VITALS: BP 165/87; PULSE 75; RESP 20; TEMP 36.8; O2SAT 94
== END 2021-04-22 02:53 | disposition home or self-care (01) ==
PROVIDERS: Emergency Provider Emergency Medicine; PCP Family Medicine
DX: R42 Dizziness and giddiness (principal); E11.65 Type 2 diabetes mellitus with hyperglycemia; I48.0 Paroxysmal atrial fibrillation; I50.9 Heart failure, unspecified; J44.9 Chronic obstructive pulmonary disease, unspecified; I25.10 Atherosclerotic heart disease of native coronary artery without angina pectoris; K21.9 Gastro-esophageal reflux disease without esophagitis; I10 Essential (primary) hypertension; E78.5 Hyperlipidemia, unspecified; Z79.899 Other long term (current) drug therapy
CPT/HCPCS: 80053; 81001; 82009; 82962; 85025; 96365; 96375; 99282

== ENCOUNTER → 2021-04-29 10:40 | Outpatient (CLI) | payer MEDICARE, SELFPAY ==
--- NOTE | 2021-04-29 10:44 | CT_ITS ---
PROCEDURE: CT ABDOMEN PELVIS WO CON CLINICAL INDICATION: ascites History of prostate cancer COMPARISON: CT ABDPELW/O CT ABD PELVIS W/O CONTRAST from 02/23/2017 TECHNIQUE: Axial images obtained with sagittal and coronal reformats. All CT scans at the facility use one or more dose reduction, viz: automated exposure control, ma/kV adjustment per patient size (including targeted exams where dose is matched to indication, i.e. head), or iterative reconstruction technique. FINDINGS: LOWER THORAX: Mild atelectatic or fibrotic changes in the right middle lobe ABDOMEN & PELVIS: There is a vague area of decreased attenuation in the right hepatic lobe inferiorly, segment 6. This area measures 9 x 4 mm. The spleen is enlarged at 14 cm. The adrenal glands and pancreas have an unremarkable appearance. No renal or ureteral calculi. No hydronephrosis. Suspect a small left renal cyst along the upper pole anteriorly at approximately 1 cm. A calcification is present in the anterior aspect of the left kidney and could be vascular or could represent a small renal calculus. This measures approximately 3 mm. There are few small Bian[place] portal lymph nodes. Gallstones are present. Numerous surgical clips are present in the right inguinal region. No evidence of appendicitis. There is a mild amount of retained colonic feces. No evidence of diverticulitis. No intestinal obstruction or free air. Prostate seed implants are present. The prostate is not enlarged. No pelvic mass or adenopathy. There is some stranding of the subcutaneous fat in the mid abdominal region on both sides and may be due to areas of injection sites. There are old right-sided rib fractures. Diffuse atherosclerotic changes involves the aortoiliac vessels. A right external iliac stent is in place. No ascites apparent. IMPRESSION: 1. No acute finding. 2. Small left renal calculus versus vascular calcification. No hydronephrosis. No ureteral calculi. Possible small left renal cyst. 3. Cholelithiasis. 4. Vague 9 x 4 mm hypodense lesion of the right hepatic lobe. This is not readily apparent on the previous exam. Recommend [address] follow-up with hemangioma protocol without and with contrast. Dictated by: Massimo Gaston MD 04/30/2021 09:05 Massimo Gaston MD in [place] 04/30/2021 09:05
--- NOTE | 2021-04-29 10:44 | XR_ITS ---
PROCEDURE: XR CHEST 2V CLINICAL HISTORY: pa/lat Shortness of breath COMPARISON: CR XR CHEST PORTABLE from 10/29/[address] ANGIO CHEST from 11/10/2020 CR XR CHEST PORTABLE from 11/12/2020 CR XR CHEST PORTABLE from 11/13/2020 FINDINGS: Prior CABG. Normal heart size. No lobar consolidation or collapse. Faint increased density left upper lobe laterally and may be related to some mild pleural thickening in the major fissure. COPD changes. Degenerative changes thoracic spine IMPRESSION: No definite acute finding. Postsurgical changes with COPD. Faint increased density left upper lobe laterally probably related overlying attenuation from the major fissure Dictated by: Massimo Gaston MD 04/29/2021 12:40 Massimo Gaston MD in [facility] 04/29/2021 12:40
== END ==
PROVIDERS: PCP Family Medicine; Visit Provider Family Medicine
DX: R06.02 Shortness of breath (principal); R18.8 Other ascites
CPT/HCPCS: 71046; 74176

== ENCOUNTER → 2021-05-25 14:39 | Outpatient (CLI) | payer MEDICARE, SELFPAY | PROVIDERS: Visit Provider Surgery | DX: R06.02 Shortness of breath (principal) | CPT/HCPCS: C9803; U0003; U0005 ==

== ENCOUNTER 2021-05-25 15:56 | Emergency (ER) | payer MEDICARE, OTHER, SELFPAY ==
[2021-05-25] VITALS (7 sets, daily range): BP systolic 118–135; BP diastolic 44–78; PULSE 62–65; RESP 14–23; TEMP 36.7–36.9; O2SAT 88–99; BMI 34.9
--- NOTE | 2021-05-25 15:58 | XR_ITS ---
PROCEDURE INFORMATION: Exam: XR Chest Exam date and time: 05/25/2021 3:58 PM Age: 81 years old Clinical indication: Pain; Chest pressure; Prior surgery; Surgery date: 6+ months; Surgery type: Open heart surgery prior; Additional info: Cough, chest pain and pressure TECHNIQUE: Imaging protocol: XR of the chest. Views: 1 view. COMPARISON: CR XR CHEST 2V 04/29/2021 10:46 AM FINDINGS: Tubes, catheters and devices: There are sternal wires consistent with previous sternotomy incision. Lungs: Atelectasis and/or early infiltrative changes noted within both lung bases. Pleural spaces: There is no evidence of pneumothorax. There are no pleural effusions present. Heart/Mediastinum: The heart demonstrates mild diffuse enlargement. Bones/joints: The thoracic spine demonstrates mild degenerative changes at multiple levels. IMPRESSION: 1. The heart demonstrates mild diffuse enlargement. 2. Atelectasis and/or early infiltrative changes noted within both lung bases. 3. The thoracic spine demonstrates mild degenerative changes at multiple levels.
--- NOTE | 2021-05-25 16:10 | ECG_ITS ---
APPROVED REPORT Exam: Resting ECG HR:62 bpm ECG Measurements Heart Rate 62 AXES ID 172 P 70 QRSd 140 QRS 10 QT 456 T 145 QTc 462 Conclusion Normal sinus rhythm Left bundle branch block Abnormal ECG Electronically signed by : Rom Brady MD 05/25/2021 21:13:17
[2021-05-25 16:40] LABS: ABG Oxygen Saturation 91 % (90-100); ABG PCO2 33.5 mmhg (35.0-45.0); ABG PH 7.45 mmol/L (7.35-7.45)
[2021-05-25 16:45] LABS: Allen's Test Acceptable; Oxygen 21 %; Source Right Radial
--- NOTE | 2021-05-25 17:27 | HMH.EDSOB ---
ED Disposition Clinical Impression: Acute exacerbation of chronic obstructive airways disease Anemia Qualifiers: Anemia type: iron deficiency Iron deficiency anemia type: other iron deficiency Qualified Code(s): D50.8 - Other iron deficiency anemias Diastolic CHF Qualifiers: Heart failure chronicity: chronic Qualified Code(s): I50.32 - Chronic diastolic (congestive) heart failure Disposition: Home, Self-Care Condition on Discharge: Good Instructions: DI for Chronic Obstructive Pulmonary Disease Referrals: Andres Valencia MD [Primary Care Provider] - - Critical Care Critical Care Time: No Attestation: On 05/25/21, the high probability of a clinically significant, sudden or life threatening deterioration of the following system(s) required my full and direct attention, intervention and personal management. The time I documented below is in addition to time spent performing reported procedures but includes the following listed in this critical care notation. Medical Decision Making - Medical Records Medical records reviewed: Yes: I reviewed the patient's medical records. - Bill Inquiry Pt receiving controlled substance: No Vital Signs: 05/25/21 15:57 05/25/21 15:58 05/25/21 16:31 Temperature 98.4 F Temperature Source Oral Pulse Rate 63 Pulse Rate [Left Radial] 65 Respiratory Rate 22 19 Blood Pressure 128/46 L 135/44 L Blood Pressure [Right Arm] 128/46 L Blood Pressure Mean 88 99 Blood Pressure Mean [Right Arm] 73 Blood Pressure Source [Right Arm] Automatic Cuff Blood Pressure Position [Right Arm] Sitting 02 Sat by Pulse Oximetry 95 88 L Oxygen Delivery Method Nasal Cannula Oxygen Flow Rate (LPM) 2 05/25/21 17:01 05/25/21 17:31 05/25/21 18:00 Temperature Temperature Source Pulse Rate 65 62 64 Pulse Rate [Left Radial] Respiratory Rate 23 21 14 Blood Pressure 118/53 L 125/50 L Blood Pressure [Right Arm] Blood Pressure Mean 74 75 Blood Pressure Mean [Right Arm] Blood Pressure Source [Right Arm] Blood Pressure Position [Right Arm] 02 Sat by Pulse Oximetry 96 99 98 Oxygen Delivery Method Oxygen Flow Rate (LPM) - Lab Data Lab Results 05/25/21 14:43: SARS-CoV-2 (PCR) Not detected, Influenza A Untype (PCR) Not detected, Influenza Type B (PCR) Not detected 05/25/21 15:58: Specimen Source Right radial, O2 % 21, ABG pH 7.45, ABG pCO2 33.5 L, ABG pO2 65.0 L, ABG HCO3 23.0, ABG Total CO2 24.0, ABG O2 Saturation 91, ABG Base Excess -1.0, Massimo Test Acceptable 05/25/21 18:00: WBC 7.1, RBC 4.15 L, Hgb 9.1 L, Hct 30.4 L, MCV 73.4 L, MCH 21.9 L, MCHC 29.8 L, RDW 18.4 H, Plt Count 363, MPV 8.0, Neut % (Auto) 76.5, Lymph % (Auto) 15.3, [place] % (Auto) 5.9, Eos % (Auto) 1.8, Baso % (Auto) 0.4, Neut # (Auto) 5.5, Lymph # (Auto) 1.1, [place] # (Auto) 0.4, Eos # (Auto) 0.1, Baso # (Auto) 0.0 05/25/21 18:00: PT 10.5, INR 0.92, APTT 21.9 L 05/25/21 18:00: Sodium 135 L, Potassium 4.7, Chloride 98, Carbon Dioxide 26, Anion Gap 15.7 H, BUN 30 H, Creatinine 2.00 H, Estimated Creat Clear 44, Estimated GFR 32 L, Est GFR ( Amer) 39 L, Glucose 152 H, Calcium 8.5, Total Bilirubin 0.4, AST 26, ALT 15, Alkaline Phosphatase 85, Troponin I < 0.01, NT-Pro-B Natriuret Pep 993 H, Total Protein 6.6, Albumin 3.8, Globulin 2.8, Albumin/Globulin Ratio 1.4, TSH 1.69 Result diagrams: 05/25/21 18:00 05/25/21 18:00 Orders (Tests/Meds): ORDERS Category Date Time Status Troponin I Q3H Lab 05/25/21 19:00 Ordered Troponin I Q3H Lab 05/25/21 22:00 Ordered - Radiology Data #1 Image(s): Chest Image Reviewed: Yes I reviewed the patient's radiology results, Yes I reviewed the patient's radiology image, Yes I have reviewed radiologist's interpretation IMPRESSION: 1. The heart demonstrates mild diffuse enlargement. 2. Atelectasis and/or early infiltrative changes noted within both lung bases. 3. The thoracic spine demonstrates mild degenerative changes at multiple l
[2021-05-25 17:35] LABS: Coronavirus 19, PCR Not Detected (NotDetected); Influenza A, PCR Not Detected (NotDetected); Influenza B, PCR Not Detected (NotDetected)
[2021-05-25 18:07] LABS: Basophils % 0.4 % (0.1-2.0); Eosinophils # 0.1 K/mm3 (0.0-0.4); Eosinophils % 1.8 % (0.1-12.0); Hematocrit 30.4 % (42.0-52.0); Hemoglobin 9.1 g/dL (14.1-18.0); Lymphocytes # 1.1 K/mm3 (0.7-4.5); Lymphocytes % 15.3 % (10-50); Mean Corpuscular HGB Conc 29.8 g/dL (31.8-35.4); Mean Corpuscular Hemoglobin 21.9 pg (27.0-31.2); Mean Corpuscular Volume 73.4 fl (80-94); Monocytes # 0.4 K/mm3 (0.1-1.0); Monocytes % 5.9 % (1.7-9.3); Neutrophils # 5.5 K/mm3 (1.8-7.8); Neutrophils % 76.5 % (37.0-80.0); Platelet Count 363 K/mm3 (142-424); Red Blood Count 4.15 M/mm3 (4.60-6.20); Red Cell Distribution Width 18.4 % (11.5-17.5); White Blood Count 7.1 K/mm3 (4.8-10.8)
[2021-05-25 18:22] LABS: Alanine Aminotransferase 15 U/L (12-78); Albumin Level 3.8 g/dl (3.5-5.0); Albumin/Globulin Ratio 1.4 (1.1-1.8); Alkaline Phosphatase 85 U/L (38-126); Anion Gap 15.7 mEq/L (5-15); Aspartate Amino Transferase 26 U/L (17-59); Bilirubin,Total 0.4 mg/dl (0.2-1.3); Blood Urea Nitrogen 30 mg/dl (9-20); Calcium 8.5 mg/dl (8.4-10.2); Carbon Dioxide 26 mmol/L (22.0-30.0); Chloride 98 mmol/L (98-107); Creatinine Clearance Estimated 44 mL/min (50-200); Estimated Glomerular Filt Rate 32 ml/min (>60); GFR (African American) 39 ML/MIN (>60); Globulin 2.8 g/dL (1.3-3.2); Glucose 152 mg/dl (74-100); Potassium 4.7 mmoL/L (3.5-5.1); Sodium 135 mmol/L (136-145); Total Protein,Serum 6.6 g/dl (6.3-8.2)
[2021-05-25 18:34] LABS: NT Pro Brain Natriuretic Pep. 993 pg/mL (0-450)
[2021-05-25 18:42] LABS: Troponin I < 0.01 ng/ml (0.00-0.034)
[2021-05-25 18:43] LABS: Activated Partial Thrombo Time 21.9 seconds (22.8-30.6); INR 0.92 (0.9-1.1); Prothrombin Time 10.5 seconds (10.1-12.5)
[2021-05-25 18:52] LABS: Thyroid Stimulating Hormone 1.69 uIU/mL (0.465-4.68)
== END 2021-05-25 19:32 | disposition home or self-care (01) ==
PROVIDERS: Emergency Provider Emergency Medicine; PCP Family Medicine
DX: J44.1 Chronic obstructive pulmonary disease with (acute) exacerbation (principal); D50.8 Other iron deficiency anemias; I50.32 Chronic diastolic (congestive) heart failure; Z11.52 Encounter for screening for COVID-19; K21.9 Gastro-esophageal reflux disease without esophagitis; E78.5 Hyperlipidemia, unspecified; I25.2 Old myocardial infarction; I10 Essential (primary) hypertension; Z99.81 Dependence on supplemental oxygen; Z87.891 Personal history of nicotine dependence
CPT/HCPCS: 71045; 80053; 82803; 83880; 84443; 84484; 85025; 85610; 85730; 93005; 99283; C9803; U0003; U0005

== ENCOUNTER 2021-05-28 06:28 | Day surgery (SDC) | payer MEDICARE, SELFPAY ==
[2021-05-28 06:47] VITALS: BP 144/46; PULSE 69; RESP 18; TEMP 36.2; O2SAT 95; BMI 36.0
--- NOTE | 2021-05-28 06:53 | P.PCN_ITS ---
- Procedure: Date: 05/28/21 Patient Date of :: 1940 Procedure Performed:: Esophagogastroduodenoscopy with biopsy Note: Colonoscopy not performed secondary to patient not completing bowel preparation. Indications:: This is a 81-year-old gentleman with a fairly long history of anemia. He was last seen in September 2018 by the surgical service status post EGD/colonoscopy. He was diagnosed with multiple tubular adenomas; however, no definitive etiology fo r blood loss was noted. Capsule endoscopy was recommended; however, he declined. A 3-9-month repeat colonoscopy was also recommended; however, he did not return for this evaluation. Performing Provider:: Juan Hernadez MD Referring Provider:: . Sedation:: Monitored anesthesia care Procedure:: After informed consent was obtained the patient was taken to the endoscopy suite. Sedation ensued after the patient was transferred to the left lateral decubitus position. Pulse, blood pressure, and oxygen saturation were monitored throughout the procedure. The endoscope was advanced beyond the duodenal bulb. Retroflexion within the gastric lumen was accomplished. The gastroscope was ca refully removed and the patient was transferred to recovery in stable condition. Please see findings and specimens below for detail. Findings:: Gastroesophageal junction at 40 cm Esophageal polyp at 24 cm Moderate degree of retained food particles throughout Mild inflammation at gastroesophageal junction Small to moderate sliding hiatal hernia patchy lobulated inflammatory changes throughout gastric mucosa 3 separate lobulated/inflamed polypoid lesions in the distal gastric body/antrum Specimens:: Lobulated/inflamed polypoid lesions of the distal gastric body/antrum biopsies Mid gastric body biopsy Gastroesophageal junction biopsy Esophageal polyp at 24 cm biopsy Recommendations:: Follow-up pathology The patient is still in need of colonoscopy. This will be discussed upon return to clinic. Likely repeat EGD at time of colonoscopy Complications:: No immediate Estimated blood obtained (mL): 1
[2021-05-28 07:22] VITALS: O2SAT 97
[2021-05-28 07:44] VITALS: BP 107/50; PULSE 55; RESP 18; TEMP 36.3; O2SAT 90
[2021-05-28 07:54] VITALS: BP 113/45; PULSE 59; RESP 18; O2SAT 95
[2021-05-28 08:04] VITALS: BP 145/65; PULSE 60; RESP 18; O2SAT 95
[2021-05-28 08:40] VITALS: BP 137/84; PULSE 54; RESP 18; O2SAT 97
[2021-05-28 09:15] LABS: POC Glucose,Bedside 79 (70-110)
[2021-05-28 09:15] LABS: POC Glucose,Bedside 63 (70-110)
--- NOTE | 2021-05-28 13:11 | HMH.ANESCL ---
[facility] Anesthesia Checklist - Patient Identification Patient Identification: Arm Band, Verbal (Name & ) - Structural Data Admitted From: Home Planned Operative Procedure/s: EGD Consent for Planned Operative Procedure(s) Verified: Yes Verified Documents: Surgical Consent - NPO Status Verified Time NPO: 00:00 - Additional verifications Anesthesia Reactions: Yes (Delayed awakening) - Cardiovascular Assessment Heart Sounds: S1 & S2 - Airway Assessment C-Spine Mobility Assessed: Yes TMJ Mobility Assessed: Yes Dentition: Edentulous - Neurological Assessment Level of Consciousness: Awake, Alert, Appropriate - Anesthesia Plan Anesthesia Risk discussed: Yes ASA Class: III Anesthesia Type: General [facility] History I have reviewed the patient's past medical history: Yes Medical History: Reports:: Atrial Fibrillation, Cancer (prostate), Congestive Heart Failure, Chronic Obstructive Pulmonary Disease (COPD), Congenital Heart Disease, Coronary Artery Disease, Diabetes Mellitus Type 2, Gastroesophageal Reflux Disease(GERD), Gastrointestinal Bleed, Home Oxygen, Hyperlipidemia, Hypertension, Lung Disease, Kidney Stones, Myocardial Infarction, Renal Insufficiency Denies:: Diabetes Mellitus Type 1, Internal Pacemaker, MRSA, Seizures *Have you ever received a pneumonia vaccine?: Yes *Have you received a flu vaccine this season?: No Other Medical History: Reports: Anemia, Arthritis Anesthesia experience/problems:: no issues Other Surgeries: Yes: No Previous Surgery, Angiogram, Angioplasty, CABG, Cancer Surgery, Cardiac Catheterization, Cardiac Surgery, Colonoscopy, Coronary Stent, EGD, Hernia Repair, Other. No: Pacemaker Amputation: No Fractures: No - *Social History Last grade of school completed: GED Smoking Status: Former smoker Tobacco Type: cigarettes # Packs/Day (cigarettes): 1 Alcohol Intake: never Alcohol Intake Frequency:: other Substance Use Type: denies use *Occupational Status:: retired Housing: house Household Members: spouse *Travel in the last 8 weeks: None Family Hx:: No significant family history
== END 2021-05-28 08:44 | disposition home or self-care (01) ==
LOC: OUTP 06:30
PROVIDERS: PCP Family Medicine; Visit Provider Surgery
PROC: 0DJ08ZZ Inspection of Upper Intestinal Tract, Via Natural or Artificial Opening Endoscopic (ICD-10-PCS; CPT 43235; principal; 2021-05-28 07:30)
DX: D13.0 Benign neoplasm of esophagus (principal); D13.1 Benign neoplasm of stomach; K92.89 Other specified diseases of the digestive system; K44.9 Diaphragmatic hernia without obstruction or gangrene; D64.9 Anemia, unspecified; E11.9 Type 2 diabetes mellitus without complications; F44.9 Dissociative and conversion disorder, unspecified; I25.10 Atherosclerotic heart disease of native coronary artery without angina pectoris; I25.2 Old myocardial infarction; I11.0 Hypertensive heart disease with heart failure; I50.9 Heart failure, unspecified; Z88.2 Allergy status to sulfonamides; Z88.6 Allergy status to analgesic agent
CPT/HCPCS: 43239; 82962; 88305

== ENCOUNTER 2021-06-03 13:52 | Observation (INO) | payer MEDICARE, SELFPAY ==
[2021-06-03] VITALS (16 sets, daily range): BP systolic 105–134; BP diastolic 36–83; PULSE 50–63; RESP 16–18; TEMP 36.6–36.7; O2SAT 92–98; BMI 34.4; BMI 39.2
--- NOTE | 2021-06-03 14:21 | ECG_ITS ---
APPROVED REPORT Exam: Resting ECG HR:60 bpm ECG Measurements Heart Rate 60 AXES UT 206 P 92 QRSd 140 QRS 106 QT 460 T -34 QTc 460 Conclusion Normal sinus rhythm Rightward axis Nonspecific intraventricular block Cannot rule out Anterior infarct, age undetermined T wave abnormality, consider inferior ischemia Abnormal ECG Electronically signed by : Rom Brady MD 06/03/2021 21:32:51
[2021-06-03 14:41] LABS: Basophils # 0.1 K/mm3 (0-0.2); Basophils % 0.8 % (0.1-2.0); Eosinophils # 0.2 K/mm3 (0.0-0.4); Eosinophils % 2.8 % (0.1-12.0); Hematocrit 29.4 % (42.0-52.0); Hemoglobin 8.7 g/dL (14.1-18.0); Lymphocytes # 1.4 K/mm3 (0.7-4.5); Lymphocytes % 18.9 % (10-50); Mean Corpuscular HGB Conc 29.5 g/dL (31.8-35.4); Mean Corpuscular Hemoglobin 21.4 pg (27.0-31.2); Mean Corpuscular Volume 72.4 fl (80-94); Mean Platelet Volume 6.7 fl (7.4-10.4); Monocytes # 0.4 K/mm3 (0.1-1.0); Monocytes % 5.8 % (1.7-9.3); Neutrophils # 5.2 K/mm3 (1.8-7.8); Neutrophils % 71.7 % (37.0-80.0); Platelet Count 336 K/mm3 (142-424); Red Blood Count 4.06 M/mm3 (4.60-6.20); Red Cell Distribution Width 18.8 % (11.5-17.5); White Blood Count 7.3 K/mm3 (4.8-10.8)
[2021-06-03 14:45] LABS: Anion Gap 15.6 mEq/L (5-15); Blood Urea Nitrogen 43 mg/dl (9-20); Calcium 9.2 mg/dl (8.4-10.2); Carbon Dioxide 28 mmol/L (22.0-30.0); Chloride 99 mmol/L (98-107); Creatinine Clearance Estimated 38 mL/min (50-200); Estimated Glomerular Filt Rate 29 ml/min (>60); GFR (African American) 35 ML/MIN (>60); Glucose 118 mg/dl (74-100); Potassium 4.6 mmoL/L (3.5-5.1); Sodium 138 mmol/L (136-145)
[2021-06-03 15:00] LABS: Troponin I 0.01 ng/ml (0.00-0.034)
--- NOTE | 2021-06-03 15:13 | HMH.EDGENADL ---
ED Disposition Clinical Impression: Hypotension Qualifiers: Hypotension type: unspecified hypotension type Qualified Code(s): I95.9 - Hypotension, unspecified Disposition: Admitted as Observation Condition on Discharge: Fair - Critical Care Critical Care Time: No Attestation: On 06/03/21, the high probability of a clinically significant, sudden or life threatening deterioration of the following system(s) required my full and direct attention, intervention and personal management. The time I documented below is in addition to time spent performing reported procedures but includes the following listed in this critical care notation. Medical Decision Making - Medical Records Medical records reviewed: Yes: I reviewed the patient's medical records. MR Comment: Reviewed office note from Dr. Hernadez from today. Recent EGD for chronic anemia. Blood pressure was 79/21. Reviewed EGD report, see below. Colonoscopy not performed due to inadequate bowel prep. - Bill Inquiry Pt receiving controlled substance: No Vital Signs: 06/03/21 13:53 06/03/21 14:01 06/03/21 14:15 Temperature 98.0 F Temperature Source Oral Pulse Rate 61 61 Pulse Rate [Left Radial] 63 Respiratory Rate 18 Blood Pressure 108/39 L 105/44 L Blood Pressure [Left Arm] 105/44 L Blood Pressure Mean Blood Pressure Mean [Left Arm] 64 Blood Pressure Source [Left Arm] Automatic Cuff Blood Pressure Position [Left Arm] Sitting 02 Sat by Pulse Oximetry 93 L 92 L 93 L Oxygen Delivery Method Room Air 06/03/21 14:31 06/03/21 15:01 06/03/21 15:29 Temperature Temperature Source Pulse Rate 58 L 58 L 59 L Pulse Rate [Left Radial] Respiratory Rate Blood Pressure 128/36 L 134/52 L 123/54 L Blood Pressure [Left Arm] Blood Pressure Mean Blood Pressure Mean [Left Arm] Blood Pressure Source [Left Arm] Blood Pressure Position [Left Arm] 02 Sat by Pulse Oximetry 96 98 93 L Oxygen Delivery Method 06/03/21 15:45 06/03/21 16:00 06/03/21 16:15 Temperature Temperature Source Pulse Rate 59 L 50 L 56 L Pulse Rate [Left Radial] Respiratory Rate Blood Pressure 117/48 L 127/57 L 118/54 L Blood Pressure [Left Arm] Blood Pressure Mean Blood Pressure Mean [Left Arm] Blood Pressure Source [Left Arm] Blood Pressure Position [Left Arm] 02 Sat by Pulse Oximetry 97 93 L 94 L Oxygen Delivery Method 06/03/21 16:30 06/03/21 17:00 06/03/21 17:31 Temperature Temperature Source Pulse Rate 60 59 L 57 L Pulse Rate [Left Radial] Respiratory Rate Blood Pressure 122/54 L 125/83 121/53 L Blood Pressure [Left Arm] Blood Pressure Mean 76 94 89 Blood Pressure Mean [Left Arm] Blood Pressure Source [Left Arm] Blood Pressure Position [Left Arm] 02 Sat by Pulse Oximetry 95 97 94 L Oxygen Delivery Method Room Air Room Air Room Air - Lab Data Lab Results 06/03/21 14:15: WBC 7.3, RBC 4.06 L, Hgb 8.7 L, Hct 29.4 L, MCV 72.4 L, MCH 21.4 L, MCHC 29.5 L, RDW 18.8 H, Plt Count 336, MPV 6.7 L, Neut % (Auto) 71.7, Lymph % (Auto) 18.9, [place] % (Auto) 5.8, Eos % (Auto) 2.8, Baso % (Auto) 0.8, Neut # (Auto) 5.2, Lymph # (Auto) 1.4, [place] # (Auto) 0.4, Eos # (Auto) 0.2, Baso # (Auto) 0.1 06/03/21 14:15: Sodium 138, Potassium 4.6, Chloride 99, Carbon Dioxide 28, Anion Gap 15.6 H, BUN 43 H, Creatinine 2.20 H, Estimated Creat Clear 38, Estimated GFR 29 L, Est GFR ( Amer) 35 L, Glucose 118 H, Calcium 9.2, Troponin I 0.01 06/03/21 16:11: Urine Color Yellow, Urine Appearance Clear, Urine pH 6.5, Ur Specific [place] 1.020, Urine Protein Negative, Urine Glucose (UA) Negative, Urine Ketones Negative, Urine Blood Negative, Urine Nitrate Negative, Urine Bilirubin Negative, Urine Urobilinogen 0.2, Ur Leukocyte Esterase Negative, Urine RBC Occasional, Urine WBC 3-5, Ur Squamous Epith Cells Occasional, Urine Bacteria Trace 06/03/21 16:24: SARS-CoV-2 (PCR) Not detected, Influenza A Untype (PCR) Not detected, I
--- NOTE | 2021-06-03 16:10 | PC.NURSE ---
power tong operator paging position classifier dr america gutierrez
--- NOTE | 2021-06-03 16:14 | PC.NURSE ---
Dr Brady [employer] [facility] consultant for Dr Valencia, Dr Brady speaking with Dr Parker
--- NOTE | 2021-06-03 16:20 | PC.NURSE ---
notified house cleaner of admission
[2021-06-03 16:21] LABS: Microscopic, Urine URINE MICROSCOPIC (MICROSCOPIC)
[2021-06-03 16:24] LABS: Appearance,Urine CLEAR (Clear); Bilirubin,Urine Negative (Negative); Blood, Urine Negative (Negative); Color,Urine YELLOW (Yellow); Glucose,Urine (UA) Negative (Negative); Ketones,Urine Negative (Negative); Leukocyte Esterase,Urine Negative (Negative); Nitrate,Urine Negative (Negative); PH,Urine 6.5 (5.0-8.5); Protein,Urine Negative (Negative); Urobilinogen,Urine 0.2 EU/dl (0.2)
[2021-06-03 16:42] LABS: Bacteria,Urine Trace /lpf; RBC,Urine Occasional #/hpf (0-3); Squamous Epithelial Cell,Urine Occasional #/hpf (0-5)
[2021-06-03 16:45] LABS: Coronavirus 19, PCR Not Detected (NotDetected); Influenza A, PCR Not Detected (NotDetected); Influenza B, PCR Not Detected (NotDetected)
--- NOTE | 2021-06-03 17:18 | PC.NURSE ---
troponin collected and sent to the lab
--- NOTE | 2021-06-03 17:22 | PC.NURSE ---
report called to hussein stroud on second floor at this time, states she will send staff down to get pt.
--- NOTE | 2021-06-03 17:32 | PC.NURSE ---
dr denis speaking to dr holm
--- NOTE | 2021-06-03 17:36 | PC.NURSE ---
pt arrived to the floor at this time via wheelchair from ED
[2021-06-03 17:45] LABS: Troponin I 0.01 ng/ml (0.00-0.034)
[2021-06-03 21:59] LABS: Troponin I 0.01 ng/ml (0.00-0.034)
[2021-06-03 22:11] LABS: POC Glucose,Bedside 119 (70-110)
[2021-06-04] VITALS (32 sets, daily range): BP systolic 115–179; BP diastolic 41–84; PULSE 60–92; RESP 17–22; TEMP 36.6–37.1; O2SAT 94–100; BMI 39.2
--- NOTE | 2021-06-04 04:51 | PC.NURSE ---
uneventful night, pt rested well, troponins were negative, telemetry status pt in sinus rythm 60-70s. b/p stable throughout the evening with no complaints of dizzyness upon standing.
[2021-06-04 06:42] LABS: Basophils % 0.7 % (0.1-2.0); Eosinophils # 0.2 K/mm3 (0.0-0.4); Hematocrit 26.9 % (42.0-52.0); Lymphocytes # 1.3 K/mm3 (0.7-4.5); Mean Corpuscular HGB Conc 28.4 g/dL (31.8-35.4); Mean Corpuscular Hemoglobin 20.9 pg (27.0-31.2); Mean Corpuscular Volume 73.6 fl (80-94); Mean Platelet Volume 6.9 fl (7.4-10.4); Monocytes # 0.5 K/mm3 (0.1-1.0); Monocytes % 6.7 % (1.7-9.3); Neutrophils # 4.7 K/mm3 (1.8-7.8); Neutrophils % 70.6 % (37.0-80.0); Platelet Count 299 K/mm3 (142-424); Red Blood Count 3.65 M/mm3 (4.60-6.20); Red Cell Distribution Width 19.1 % (11.5-17.5); White Blood Count 6.7 K/mm3 (4.8-10.8)
[2021-06-04 06:56] LABS: Anion Gap 14.4 mEq/L (5-15); Blood Urea Nitrogen 41 mg/dl (9-20); Calcium 8.3 mg/dl (8.4-10.2); Carbon Dioxide 23 mmol/L (22.0-30.0); Chloride 106 mmol/L (98-107); Creatinine Clearance Estimated 48 mL/min (50-200); Estimated Glomerular Filt Rate 34 ml/min (>60); GFR (African American) 42 ML/MIN (>60); Glucose 85 mg/dl (74-100); Potassium 4.4 mmoL/L (3.5-5.1); Sodium 139 mmol/L (136-145)
[2021-06-04 06:57] LABS: Hemoglobin 7.6 g/dL (14.1-18.0)
--- NOTE | 2021-06-04 08:40 | HMH.PHAVTE ---
[facility] Pharmacy VTE Monitoring - Patient Demographics Admission date: 06/04/21 Report Date: 06/04/21 Time: 08:41 Allergies/Adverse Reactions: Patient Allergies oxycodone Allergy (Intermediate, Verified 06/03/21 14:12) I-RASH Sulfa (Sulfonamide Antibiotics) Allergy (Unknown, Verified 06/03/21 14:12) Height: 1.65 m Weight: 106.866 kg Patient Problems: Current Active Problems Hypotension (Acute) - VTE Risk Labs: VTE Related Lab Results Hgb 7.6 g/dL (14.1-18.0) L D 06/04/21 06:05 Hct 26.9 % (42.0-52.0) L 06/04/21 06:05 Plt Count 299 K/mm3 (142-424) 06/04/21 06:05 BUN 41 mg/dl (9-20) H 06/04/21 06:05 Creatinine 1.90 mg/dl (0.66-1.25) H 06/04/21 06:05 Estimated Creat Clear 48 mL/min (50-200) 06/04/21 06:05 Was VTE Risk Assessment Performed: Yes VTE Score: 11 VTE Risk Level: Moderate Risk Clinical Trial Participant: No - Prophylaxis VTE Prophylaxis Ordered?: Yes Types of VTE Prophylaxis: TEDS Knee High
--- NOTE | 2021-06-04 08:56 | HMH.CNCARD ---
History of Present Illness Consult date: 06/04/21 Requesting physician: Andres Valencia Consult reason: congestive heart failure Chief complaint: dizziness History of present illness: This is a 81-year-old white gentleman who was admitted to the hospital for hypotension. The patient was in Dr. Nobles's office yesterday feeling very dizzy and weak and fatigued. His blood pressure was low so he was sent to the emergency department for evaluation. The patient states that he is pretty much dizzy all of the time. He states even sitting he was dizzy and it was getting worse when he was ambulating. The patient states that he was unable to walk at times due to how dizzy he was. He did have a headache yesterday but this has resolved at this time. He states that he occasionally has some shortness of breath with exertion and this improves with rest. He states that overall this has been really well controlled on his diuretics. He denies any lower extremity edema. He denies any fever, chills, nausea, vomiting, diarrhea, PND or orthopnea. When I walk in the room the patient is lying flat without any symptoms. He denies any chest pain or pressure. [facility] History I have reviewed the patient's past medical history: Yes Medical History: Reports:: Arrhythmia, Atrial Fibrillation, Cancer (PROSTATE), Congestive Heart Failure, Chronic Obstructive Pulmonary Disease (COPD), Congenital Heart Disease, Coronary Artery Disease, Diabetes Mellitus Type 2, Gastroesophageal Reflux Disease(GERD), Gastrointestinal Bleed, Home Oxygen, Hyperlipidemia, Hypertension, Lung Disease, Kidney Stones, Myocardial Infarction, Renal Insufficiency Denies:: Diabetes Mellitus Type 1, Internal Pacemaker, MRSA, Seizures *Have you ever received a pneumonia vaccine?: Yes *Have you received a flu vaccine this season?: Yes Other Medical History: Reports: Anemia, Arthritis Other Surgeries: Yes: No Previous Surgery, Angiogram, Angioplasty, CABG, Cancer Surgery, Cardiac Catheterization, Cardiac Surgery, Colonoscopy, Coronary Stent, EGD, Hernia Repair, Other. No: Pacemaker Amputation: No Fractures: No - *Social History Last grade of school completed: High school graduate Smoking Status: Former smoker Tobacco Type: cigarettes # Packs/Day (cigarettes): 1 Alcohol Intake: former Alcohol Intake Frequency:: other Substance Use Type: denies use *Occupational Status:: retired Housing: house Household Members: spouse *Travel in the last 8 weeks: None Family Hx:: No significant family history Meds Home Medications Medication Instructions Recorded Confirmed Type Pantoprazole Sodium 40 mg PO DAILY 10/28/20 06/03/21 History Insulin Regular, Human [Humulin R 250 unit SQ DAILY 11/11/20 06/03/21 History U-500 Kwikpen] oxybutynin chloride 5 mg tablet 5 mg PO BID #180 tab 01/19/21 06/03/21 Rx rosuvastatin 40 mg tablet 40 mg PO DAILY #90 tab 04/20/21 06/03/21 Rx furosemide 40 mg tablet 40 mg PO DIRECTED tab 04/23/21 06/03/21 History gabapentin 300 mg capsule 300 mg PO BID #60 cap 05/12/21 06/03/21 Rx Clopidogrel Bisulfate [Plavix] 75 mg PO DAILY 05/28/21 06/03/21 History Isosorbide Mononitrate [Isosorbide 60 mg PO DAILY 05/28/21 06/03/21 History Mononitrate ER] NIFEdipine [Nifedipine ER] 1 tab PO DAILY 05/28/21 06/03/21 History Spironolactone 50 mg PO DAILY 05/28/21 06/03/21 History Tamsulosin HCl 1 tab PO DAILY 05/28/21 06/03/21 History Tiotropium Br/Olodaterol HCl 2 puff INHALATION DAILY 05/28/21 06/03/21 History [Stiolto Respimat] gemfibroziL [Gemfibrozil] 1 tab PO BID 05/28/21 06/03/21 History lisinopriL [Lisinopril] 10 mg PO DAILY 05/28/21 06/03/21 History Insulin Regular, Human [Humulin R 100 unit SQ HS 06/03/21 06/03/21 History U-500 Kwikpen] Allergies Allergy/AdvReac Type Severity Reaction Status Date / Time oxycodone Allergy Intermediate I-RASH Verified 06/03/21 14:12 Sulfa (Sulfonamide Allergy Unknown Verified 06/03/21 14:12 Antibiotics) Exam Vital signs and Labs for L
--- NOTE | 2021-06-04 09:20 | HMH.HP ---
*Admission Date: 06/04/21 *Chief complaint: Hypotension *History of present illness: 81-year-old patient presented to the [facility] emergency department from surgical clinic for reports of low blood pressure 70 systolic. In the emergency department blood pressure was low 100s systolic. Patient was up and sitting on the side of the bed stating he did not feel good at all also reported feeling lightheaded just sitting on the side of the bed and does not think he can get up and walk. He also reported a headache and he states he is so weak he can barely raise his arms. Patient was in the surgery clinic reviewing EGD results and failure to complete colonoscopy due to not following bowel prep. He denies any recent blood in his stool or emesis He is a patient of cardiology clinic for ongoing congestive heart failure and sees [facility] for endocrinology 81-year-old male patient resting in bed with eyes closed, awakens to verbal stimuli. Reports he feels better today than yesterday but is still weak, denies dizziness, chest pain, or shortness of breath. Blood pressure overnight has been 120s to 130s systolic with heart rate of 60s to 70s. Due to low hemoglobin this morning we will transfuse 2 units of packed red blood cells and consult general surgery [facility] History I have reviewed the patient's past medical history: Yes Medical History: Reports:: Arrhythmia, Atrial Fibrillation, Cancer (PROSTATE), Congestive Heart Failure, Chronic Obstructive Pulmonary Disease (COPD), Congenital Heart Disease, Coronary Artery Disease, Diabetes Mellitus Type 2, Gastroesophageal Reflux Disease(GERD), Gastrointestinal Bleed, Home Oxygen, Hyperlipidemia, Hypertension, Lung Disease, Kidney Stones, Myocardial Infarction, Renal Insufficiency Denies:: Diabetes Mellitus Type 1, Internal Pacemaker, MRSA, Seizures *Have you ever received a pneumonia vaccine?: Yes *Have you received a flu vaccine this season?: Yes Other Medical History: Reports: Anemia, Arthritis Other Surgeries: Yes: No Previous Surgery, Angiogram, Angioplasty, CABG, Cancer Surgery, Cardiac Catheterization, Cardiac Surgery, Colonoscopy, Coronary Stent, EGD, Hernia Repair, Other. No: Pacemaker Amputation: No Fractures: No - *Social History Last grade of school completed: High school graduate Smoking Status: Former smoker Tobacco Type: cigarettes # Packs/Day (cigarettes): 1 Alcohol Intake: former Alcohol Intake Frequency:: other Substance Use Type: denies use *Occupational Status:: retired Housing: house Household Members: spouse *Travel in the last 8 weeks: None Family Hx:: No significant family history Review of Systems - Review of Systems Review of systems:: pertinent systems reviewed and negative unless documented below - Constitutional Reports fatigue, Reports headache(s), Reports lack of energy, Denies chills - Eyes Denies blurry vision, Denies change in vision - ENT Denies abnormal hearing, Denies hearing loss - *Cardiovascular Denies chest pain, Denies shortness of breath - *Respiratory Denies chest congestion, Denies cough - *Gastrointestinal Denies abdominal pain, Denies change in bowel habits - *Musculoskeletal Denies abnormal walking, Denies decreased muscle mass - Integumentary/Breasts Denies change in hair, Denies change in skin color - *Neurologic Reports dizziness, Reports headache(s), Reports weakness, Denies numbness - Psychiatric Denies anxiety, Denies confusion - Endocrine Denies cold intolerance, Denies rapid, pounding, or irregular heartbeat - Hematologic/Lymphatic Denies easy bruising, Denies enlarged lymph nodes - Allergic/Immunologic Denies lip swelling, Denies wheezing Meds Home Medications Medication Instructions Recorded Confirmed Type Pantoprazole Sodium 40 mg PO DAILY 10/28/20 06/03/21 History Insulin Regular, Human [Humulin R 250 unit SQ DAILY 11/11/20 06/03/21 History U-500 Kwikpen] rosuvastatin 40 mg t
[2021-06-04 11:46] LABS: POC Glucose,Bedside 101 (70-110)
[2021-06-04 11:46] LABS: POC Glucose,Bedside 329 (70-110)
[2021-06-04 12:24] LABS: Hematocrit 26.7 % (42.0-52.0); Hemoglobin 7.6 g/dL (14.1-18.0)
--- NOTE | 2021-06-04 13:53 | HMH.GSCON ---
*Admission Date: 06/04/21 *Reason for consult:: Anemia *History of present illness: This is a 81-year-old gentleman seen in consultation from Dr. Valencia for evaluation morning anemia. He reports no bright red blood per rectum. No hematemesis or melena. He was seen in the office yesterday in follow-up status post EGD (colonoscopy not completed secondary to patient not having bowel prep); however, he was transferred immediately to the emergency department secondary to hypotension and dizziness. He was admitted to the primary service for further evaluation and management. Hemoglobin has ranged from 9.1-11.1 during this calendar year. His most recent hemoglobin prior to yesterday was 9.1 (on May 25). Hemoglobin yesterday was 8.7. Today's hemoglobin is 7.6 (likely partially dilutional). Forwarded from office note dated 06/03/2021: The patient returns for follow-up status post esophagogastroduodenoscopy. Indications, findings, specimens, and recommendations are forwarded below. He is currently somewhat dizzy and was found to be hypotensive. He is being urgently transferred to the emergency department. He will be reevaluated in the outpatient setting when clinically stable. - Procedure: Date: 05/28/21 Procedure Performed:: Esophagogastroduodenoscopy with biopsy Note: Colonoscopy not performed secondary to patient not completing bowel preparation. Indications:: This is a 81-year-old gentleman with a fairly long history of anemia. He was last seen in September 2018 by the surgical service status post EGD/colonoscopy. He was diagnosed with multiple tubular adenomas; however, no definitive etiology for blood loss was noted. Capsule endoscopy was recommended; however, he declined. A 3-9-month repeat colonoscopy was also recommended; however, he did not return for this evaluation. Findings:: Gastroesophageal junction at 40 cm Esophageal polyp at 24 cm Moderate degree of retained food particles throughout Mild inflammation at gastroesophageal junction Small to moderate sliding hiatal hernia patchy lobulated inflammatory changes throughout gastric mucosa 3 separate lobulated/inflamed polypoid lesions in the distal gastric body/antrum Specimens:: Lobulated/inflamed polypoid lesions of the distal gastric body/antrum biopsies Mid gastric body biopsy Gastroesophageal junction biopsy Esophageal polyp at 24 cm biopsy Recommendations:: Follow-up pathology The patient is still in need of colonoscopy. This will be discussed upon return to clinic. Likely repeat EGD at time of colonoscopy Review of Systems - Constitutional Denies chills - Eyes Denies change in vision - ENT Denies difficulty swallowing - *Cardiovascular Reports lightheadedness, Denies chest pain - *Respiratory Denies cough - *Gastrointestinal Denies abdominal pain - *Genitourinary Denies blood in urine - *Neurologic Reports dizziness, Reports headache(s), Reports weakness, Denies numbness [facility] History Medical History: Reports:: Arrhythmia, Atrial Fibrillation, Cancer (PROSTATE), Congestive Heart Failure, Chronic Obstructive Pulmonary Disease (COPD), Congenital Heart Disease, Coronary Artery Disease, Diabetes Mellitus Type 2, Gastroesophageal Reflux Disease(GERD), Gastrointestinal Bleed, Home Oxygen, Hyperlipidemia, Hypertension, Lung Disease, Kidney Stones, Myocardial Infarction, Renal Insufficiency Denies:: Diabetes Mellitus Type 1, Internal Pacemaker, MRSA, Seizures *Have you ever received a pneumonia vaccine?: Yes *Have you received a flu vaccine this season?: Yes Other Medical History: Reports: Anemia, Arthritis Other Surgeries: Yes: No Previous Surgery, Angiogram, Angioplasty, CABG, Cancer Surgery, Cardiac Catheterization, Cardiac Surgery, Colonosc
--- NOTE | 2021-06-04 17:46 | PC.NURSE ---
No acute changes this shift. Pt tolerated first unit of blood without any problems. CB in reach. VSS. Alert and oriented x 4. Pt now on 2 L NC and no dyspnea. Meds give per sep. SSI-achs. Mx continues.
[2021-06-04 18:22] LABS: POC Glucose,Bedside 432 (70-110)
[2021-06-04 22:18] LABS: POC Glucose,Bedside 332 (70-110)
[2021-06-04 22:56] LABS: Hematocrit 33.5 % (42.0-52.0)
[2021-06-04 23:13] LABS: Hemoglobin 9.9 g/dL (14.1-18.0)
[2021-06-05] VITALS: BP 156/76; PULSE 73; PULSE 80; RESP 20; TEMP 36.2; O2SAT 97
[2021-06-05 04:00] VITALS: BP 132/68; PULSE 64; PULSE 80; RESP 16; TEMP 36.6; O2SAT 95
[2021-06-05 05:00] VITALS: BMI 39.2
--- NOTE | 2021-06-05 06:39 | HMH.GSPN ---
Subjective Patient reports: no new complaints Progress Note: A&P (1) Dizziness Status: Acute (2) Hypotension Status: Acute (3) Anemia Status: Acute Assessment and plan: Acute on chronic anemia with prior evaluation limited by patient's care choices. Follow-up a.m. labs Continue evaluation for anemia (likely as outpatient with repeat EGD combined with colonoscopy in near future) Consider UGI/SBFT and capsule endoscopy pending results of colonoscopy and repeat EGD (patient refused after prior recommendation) Continue proton pump inhibition (4) Dyspnea Status: Acute (5) Melena Status: Acute (6) CAD (coronary artery disease) Status: Chronic (7) Diabetes mellitus Status: Chronic (8) HHD (hypertensive heart disease) Status: Chronic (9) HLD (hyperlipidemia) Status: Chronic (10) HTN (hypertension) Status: Chronic (11) Paroxysmal atrial fibrillation Status: Chronic (12) Chronic kidney disease Status: Acute (13) Congestive heart failure Status: Chronic Exam Vital signs and Labs for Last 24 Hours: Temp Pulse Resp BP Pulse Ox 98 F 64 16 132/68 95 06/05/21 04:00 06/05/21 04:00 06/05/21 04:00 06/05/21 04:00 06/05/21 04:00 Laboratory Results - last 24 hr 06/04/21 05:53: POC Glucose 101 06/04/21 06:05: WBC 6.7, RBC 3.65 L, Hgb 7.6 L D, Hct 26.9 L, MCV 73.6 L, MCH 20.9 L, MCHC 28.4 L, RDW 19.1 H, Plt Count 299, MPV 6.9 L, Neut % (Auto) 70.6, Lymph % (Auto) 19.0, [place] % (Auto) 6.7, Eos % (Auto) 3.0, Baso % (Auto) 0.7, Neut # (Auto) 4.7, Lymph # (Auto) 1.3, [place] # (Auto) 0.5, Eos # (Auto) 0.2, Baso # (Auto) 0.0 06/04/21 06:05: Sodium 139, Potassium 4.4, Chloride 106, Carbon Dioxide 23, Anion Gap 14.4, BUN 41 H, Creatinine 1.90 H, Estimated Creat Clear 48, Estimated GFR 34 L, Est GFR ( Amer) 42 L, Glucose 85 D, Calcium 8.3 L 06/04/21 11:16: POC Glucose 329 H* 06/04/21 11:55: Hgb 7.6 L, Hct 26.7 L 06/04/21 11:55: Blood Type A Positive, Antibody Screen Negative, Crossmatch (AHG) See Detail 06/04/21 15:42: POC Glucose 432 H* 06/04/21 20:20: POC Glucose 332 H* 06/04/21 22:51: Hgb 9.9 L D, Hct 33.5 L I & O for Last 24 hours: Intake & Output 06/02/21 06/03/21 06/04/21 06/05/21 11:59 11:59 11:59 11:59 Intake Total 1551 / 1551 860 / 860 Output Total 1425 / 1425 3075 / 3075 Balance 126 / 126 -2215 / -2215 Weight 235 lb 9.6 oz 235 lb 10.786 oz Narrative: 2 units packed red blood cells transfused yesterday. Posttransfusion hemoglobin increased appropriately. - Constitutional no acute distress - *Routine Respiratory Exam Absent: respiratory distress - *Routine Cardiovascular Exam Absent: tachycardia
[2021-06-05 07:03] LABS: Basophils % 0.5 % (0.1-2.0); Eosinophils # 0.3 K/mm3 (0.0-0.4); Eosinophils % 3.6 % (0.1-12.0); Hematocrit 31.6 % (42.0-52.0); Hemoglobin 9.4 g/dL (14.1-18.0); Lymphocytes # 1.2 K/mm3 (0.7-4.5); Lymphocytes % 17.4 % (10-50); Mean Corpuscular HGB Conc 29.6 g/dL (31.8-35.4); Mean Corpuscular Hemoglobin 22.9 pg (27.0-31.2); Mean Corpuscular Volume 77.4 fl (80-94); Mean Platelet Volume 7.8 fl (7.4-10.4); Monocytes # 0.4 K/mm3 (0.1-1.0); Monocytes % 6.1 % (1.7-9.3); Neutrophils % 72.3 % (37.0-80.0); Platelet Count 297 K/mm3 (142-424); Red Blood Count 4.09 M/mm3 (4.60-6.20); Red Cell Distribution Width 19.9 % (11.5-17.5)
[2021-06-05 07:15] LABS: Anion Gap 12.1 mEq/L (5-15); Blood Urea Nitrogen 34 mg/dl (9-20); Calcium 8.5 mg/dl (8.4-10.2); Carbon Dioxide 24 mmol/L (22.0-30.0); Chloride 104 mmol/L (98-107); Creatinine Clearance Estimated 53 mL/min (50-200); Estimated Glomerular Filt Rate 39 ml/min (>60); GFR (African American) 47 ML/MIN (>60); Glucose 360 mg/dl (74-100); Potassium 5.1 mmoL/L (3.5-5.1); Sodium 135 mmol/L (136-145)
[2021-06-05 07:39] VITALS: BP 154/65; PULSE 79; RESP 20; TEMP 36.7; O2SAT 93
--- NOTE | 2021-06-05 09:51 | HMH.DCSUM ---
General - General Admission date:: 06/03/21 Discharge date: 06/05/21 HPI HPI: 81-year-old patient presented to the [facility] emergency department from surgical clinic for reports of low blood pressure 70 systolic. In the emergency department blood pressure was low 100s systolic. Patient was up and sitting on the side of the bed stating he did not feel good at all also reported feeling lightheaded just sitting on the side of the bed and does not think he can get up and walk. He also reported a headache and he states he is so weak he can barely raise his arms. Patient was in the surgery clinic reviewing EGD results and failure to complete colonoscopy due to not following bowel prep. He denies any recent blood in his stool or emesis He is a patient of cardiology clinic for ongoing congestive heart failure and sees [facility] for endocrinology 81-year-old male patient resting in bed with eyes closed, awakens to verbal stimuli. Reports he feels better today than yesterday but is still weak, denies dizziness, chest pain, or shortness of breath. Blood pressure overnight has been 120s to 130s systolic with heart rate of 60s to 70s. Due to low hemoglobin this morning we will transfuse 2 units of packed red blood cells and consult general surgery Hospital Course Hospital Course: Laboratory Tests 06/03/21 06/03/21 06/03/21 14:15 14:15 16:11 WBC 7.3 RBC 4.06 L Hgb 8.7 L Hct 29.4 L MCV 72.4 L MCH 21.4 L MCHC 29.5 L RDW 18.8 H Plt Count 336 MPV 6.7 L Neut % (Auto) 71.7 Lymph % (Auto) 18.9 [place] % (Auto) 5.8 Eos % (Auto) 2.8 Baso % (Auto) 0.8 Neut # (Auto) 5.2 Lymph # (Auto) 1.4 [place] # (Auto) 0.4 Eos # (Auto) 0.2 Baso # (Auto) 0.1 Sodium 138 Potassium 4.6 Chloride 99 Carbon Dioxide 28 Anion Gap 15.6 H BUN 43 H Creatinine 2.20 H Estimated Creat Clear 38 Estimated GFR 29 L Est GFR ( Amer) 35 L Glucose 118 H POC Glucose Calcium 9.2 Troponin I 0.01 Urine Color Yellow Urine Appearance Clear Urine pH 6.5 Ur Specific [place] 1.020 Urine Protein Negative Urine Glucose (UA) Negative Urine Ketones Negative Urine Blood Negative Urine Nitrate Negative Urine Bilirubin Negative Urine Urobilinogen 0.2 Ur Leukocyte Esterase Negative Urine RBC Occasional Urine WBC 3-5 Ur Squamous Epith Cells Occasional Urine Bacteria Trace SARS-CoV-2 (PCR) Influenza A Untype (PCR) Influenza Type B (PCR) Blood Type Antibody Screen Crossmatch ([facility]) 06/03/21 06/03/21 06/03/21 16:24 17:17 21:00 WBC RBC Hgb Hct MCV MCH MCHC RDW Plt Count MPV Neut % (Auto) Lymph % (Auto) [place] % (Auto) Eos % (Auto) Baso % (Auto) Neut # (Auto) Lymph # (Auto) [place] # (Auto) Eos # (Auto) Baso # (Auto) Sodium Potassium Chloride Carbon Dioxide Anion Gap BUN Creatinine Estimated Creat Clear Estimated GFR Est GFR ( Amer) Glucose POC Glucose Calcium Troponin I 0.01 0.01 Urine Color Urine Appearance Urine pH Ur Specific [place] Urine Protein Urine Glucose (UA) Urine Ketones Urine Blood Urine Nitrate Urine Bilirubin Urine Urobilinogen Ur Leukocyte Esterase Urine RBC Urine WBC Ur Squamous Epith Cells Urine Bacteria SARS-CoV-2 (PCR) Not detected Influenza A Untype (PCR) Not detected Influenza Type B (PCR) Not detected Blood Type Antibody Screen Crossmatch ([facility]) 06/03/21 06/04/21 06/04/21 21:14 05:53 06:05 WBC 6.7 RBC 3.65 L Hgb 7.6 L D Hct 26.9 L MCV 73.6 L MCH 20.9 L MCHC 28.4 L RDW 19.1 H Plt Count 299 MPV 6.9 L Neut % (Auto) 70.6 Lymph % (Auto) 19.0 [place] % (Auto) 6.7 Eos % (Auto) 3.0 Baso % (Auto)
[2021-06-05 10:54] VITALS: BP 143/53; RESP 20; TEMP 37; O2SAT 98
[2021-06-05 12:53] LABS: POC Glucose,Bedside 381 (70-110)
== END 2021-06-05 12:55 | disposition home or self-care (01) ==
LOC: ER 16:22 → 2ND 17:56
PROVIDERS: Nurse Practitioner Family; Surgery; Admitting Provider Internal Medicine Adolescent Medicine; Emergency Provider Emergency Medicine; PCP Family Medicine; Visit Provider Family Medicine
DX: I95.9 Hypotension, unspecified (principal); N18.9 Chronic kidney disease, unspecified; E11.22 Type 2 diabetes mellitus with diabetic chronic kidney disease; D64.9 Anemia, unspecified; Z20.822 Contact with and (suspected) exposure to COVID-19; I13.0 Hypertensive heart and chronic kidney disease with heart failure and stage 1 through stage 4 chronic kidney disease, or unspecified chronic kidney disease; I48.91 Unspecified atrial fibrillation; J44.9 Chronic obstructive pulmonary disease, unspecified; I50.9 Heart failure, unspecified; Z99.81 Dependence on supplemental oxygen; I25.10 Atherosclerotic heart disease of native coronary artery without angina pectoris; K21.9 Gastro-esophageal reflux disease without esophagitis; Z79.4 Long term (current) 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; Z88.8 Allergy status to other drugs, medicaments and biological substances; Z79.899 Other long term (current) drug therapy; Z95.1 Presence of aortocoronary bypass graft; Z95.5 Presence of coronary angioplasty implant and graft
CPT/HCPCS: G0378; 36415; 80048; 81001; 82962; 84484; 85014; 85018; 85025; 86850; 93005; 94761; 96365; 99284; C9803; P9016; U0003; U0005

== ENCOUNTER → 2021-06-10 14:22 | Outpatient (CLI) | payer MEDICARE, SELFPAY ==
[2021-06-10 14:56] LABS: Basophils % 0.7 % (0.1-2.0); Eosinophils # 0.3 K/mm3 (0.0-0.4); Eosinophils % 5.1 % (0.1-12.0); Hematocrit 35.4 % (42.0-52.0); Hemoglobin 10.8 g/dL (14.1-18.0); Lymphocytes # 0.9 K/mm3 (0.7-4.5); Lymphocytes % 14.9 % (10-50); Mean Corpuscular HGB Conc 30.4 g/dL (31.8-35.4); Mean Corpuscular Hemoglobin 23.4 pg (27.0-31.2); Mean Corpuscular Volume 76.8 fl (80-94); Mean Platelet Volume 8.4 fl (7.4-10.4); Monocytes # 0.3 K/mm3 (0.1-1.0); Monocytes % 4.5 % (1.7-9.3); Neutrophils # 4.7 K/mm3 (1.8-7.8); Neutrophils % 74.9 % (37.0-80.0); Platelet Count 275 K/mm3 (142-424); Red Blood Count 4.61 M/mm3 (4.60-6.20); Red Cell Distribution Width 21.2 % (11.5-17.5); White Blood Count 6.3 K/mm3 (4.8-10.8)
[2021-06-10 16:44] LABS: Chloride 106 mmol/L (98-107); Sodium 141 mmol/L (136-145)
[2021-06-10 16:47] LABS: Alanine Aminotransferase 13 U/L (12-78); Albumin Level 4.1 g/dl (3.5-5.0); Albumin/Globulin Ratio 1.6 (1.1-1.8); Alkaline Phosphatase 99 U/L (38-126); Aspartate Amino Transferase 23 U/L (17-59); Bilirubin,Total 0.3 mg/dl (0.2-1.3); Blood Urea Nitrogen 50 mg/dl (9-20); Carbon Dioxide 23 mmol/L (22.0-30.0); Estimated Glomerular Filt Rate 26 ml/min (>60); GFR (African American) 32 ML/MIN (>60); Globulin 2.5 g/dL (1.3-3.2); Glucose 125 mg/dl (74-100); Total Protein,Serum 6.6 g/dl (6.3-8.2)
== END ==
PROVIDERS: Visit Provider Family Medicine
DX: J44.1 Chronic obstructive pulmonary disease with (acute) exacerbation (principal); I50.9 Heart failure, unspecified
CPT/HCPCS: 36415; 80053; 85025

== ENCOUNTER → 2021-06-11 07:04 | Outpatient (CLI) | payer MEDICARE, SELFPAY ==
[2021-06-11 16:45] LABS: Prostate Specific Ag, Diagnost < 0.064 ng/ml (0.0-4.0)
== END ==
LOC: LAB 14:39 → LAB.DROPOF 14:58
PROVIDERS: Urology; Visit Provider Family Medicine
DX: C61 Malignant neoplasm of prostate
CPT/HCPCS: 36415; 84153

== ENCOUNTER 2021-06-27 15:54 | Emergency (ER) | payer MEDICARE, OTHER, SELFPAY ==
[2021-06-27 15:54] VITALS: BP 171/68; PULSE 88; RESP 32; TEMP 37.6; O2SAT 80; BMI 34.9
[2021-06-27 15:55] VITALS: O2SAT 98
--- NOTE | 2021-06-27 15:58 | ECG_ITS ---
APPROVED REPORT Exam: Resting ECG HR:93 bpm ECG Measurements Heart Rate 93 AXES NE 154 P -9 QRSd 130 QRS 70 QT 374 T 184 QTc 465 Conclusion Sinus rhythm with premature atrial complexes with aberrant conduction Nonspecific intraventricular block Cannot rule out Anterior infarct, age undetermined T wave abnormality, consider inferolateral ischemia Abnormal ECG Electronically signed by : Rom Brady MD 06/29/2021 14:24:48
--- NOTE | 2021-06-27 15:59 | XR_ITS ---
PROCEDURE INFORMATION: Exam: XR Chest Exam date and time: 06/27/2021 3:59 PM Age: 81 years old Clinical indication: Shortness of breath; Additional info: SOB TECHNIQUE: Imaging protocol: XR of the chest. Views: 1 view. COMPARISON: CR XR CHEST PORTABLE 05/25/2021 4:26 PM FINDINGS: Tubes, catheters and devices: There are sternal wires consistent with previous sternotomy incision. Lungs: Atelectasis and/or early infiltrative changes noted within both lung bases. Bilateral hyperinflation is present. Pleural spaces: There is no evidence of pneumothorax. Heart/Mediastinum: Heart demonstrates mild diffuse enlargement. Bones/joints: Unremarkable. IMPRESSION: 1. Heart demonstrates mild diffuse enlargement. 2. Atelectasis and/or early infiltrative changes noted within both lung bases. 3. Bilateral hyperinflation is present.
[2021-06-27 16:22] LABS: Basophils % 0.4 % (0.1-2.0); Eosinophils # 0.3 K/mm3 (0.0-0.4); Eosinophils % 2.7 % (0.1-12.0); Hematocrit 30.3 % (42.0-52.0); Hemoglobin 9.4 g/dL (14.1-18.0); Lymphocytes % 9.7 % (10-50); Mean Corpuscular HGB Conc 30.9 g/dL (31.8-35.4); Mean Corpuscular Hemoglobin 24.1 pg (27.0-31.2); Mean Platelet Volume 7.7 fl (7.4-10.4); Monocytes # 0.5 K/mm3 (0.1-1.0); Monocytes % 4.6 % (1.7-9.3); Neutrophils # 8.8 K/mm3 (1.8-7.8); Neutrophils % 82.7 % (37.0-80.0); Platelet Count 316 K/mm3 (142-424); Red Blood Count 3.88 M/mm3 (4.60-6.20); Red Cell Distribution Width 22.2 % (11.5-17.5); White Blood Count 10.7 K/mm3 (4.8-10.8)
--- NOTE | 2021-06-27 16:22 | HMH.EDGENADL ---
ED Disposition Clinical Impression: Elevated brain natriuretic peptide (BNP) level, Congestive heart failure Disposition: Home, Self-Care Condition on Discharge: Good Instructions: Heart Failure Referrals: Andres Valencia MD [Primary Care Provider] - 06/29/21 (Call for an appointment) Time of Disposition: 18:17 - Critical Care Critical Care Time: No Attestation: On 06/27/21, the high probability of a clinically significant, sudden or life threatening deterioration of the following system(s) required my full and direct attention, intervention and personal management. The time I documented below is in addition to time spent performing reported procedures but includes the following listed in this critical care notation. Medical Decision Making - Medical Records Medical records reviewed: Yes: I reviewed the patient's medical records. - Bill Inquiry Pt receiving controlled substance: No Vital Signs: 06/27/21 15:54 06/27/21 15:55 06/27/21 16:30 Temperature 99.6 F Temperature Source Oral Pulse Rate 83 Pulse Rate [Left Radial] 88 Respiratory Rate 32 H 27 H Blood Pressure 156/58 H Blood Pressure [Right Arm] 171/68 H Blood Pressure Mean [Right Arm] 102 Blood Pressure Source [Right Arm] Automatic Cuff Blood Pressure Position [Right Arm] Sitting 02 Sat by Pulse Oximetry 80 L 98 93 L Oxygen Delivery Method Nasal Cannula Non-Rebreather Nasal Cannula Oxygen Flow Rate (LPM) 4 3 06/27/21 17:00 Temperature Temperature Source Pulse Rate 83 Pulse Rate [Left Radial] Respiratory Rate 24 Blood Pressure 160/58 H Blood Pressure [Right Arm] Blood Pressure Mean [Right Arm] Blood Pressure Source [Right Arm] Blood Pressure Position [Right Arm] 02 Sat by Pulse Oximetry 93 L Oxygen Delivery Method Nasal Cannula Oxygen Flow Rate (LPM) 3 - Lab Data Lab results reviewed: Yes: I reviewed the patient's lab results. Lab Results 06/27/21 16:13: WBC 10.7, RBC 3.88 L, Hgb 9.4 L, Hct 30.3 L, MCV 78.0 L, MCH 24.1 L, MCHC 30.9 L, RDW 22.2 H, Plt Count 316, MPV 7.7, Neut % (Auto) 82.7 H, Lymph % (Auto) 9.7 L, [place] % (Auto) 4.6, Eos % (Auto) 2.7, Baso % (Auto) 0.4, Neut # (Auto) 8.8 H, Lymph # (Auto) 1.0, [place] # (Auto) 0.5, Eos # (Auto) 0.3, Baso # (Auto) 0.0 06/27/21 16:13: Sodium 138, Potassium 4.9, Chloride 107, Carbon Dioxide 20 L, Anion Gap 15.9 H, BUN 15, Creatinine 1.30 H, Estimated Creat Clear 68, Estimated GFR 53 L, Est GFR ( Amer) 64, Glucose 305 H, Calcium 8.7, Total Bilirubin 0.7, AST 32, ALT 19, Alkaline Phosphatase 126, Troponin I < 0.01, NT-Pro-B Natriuret Pep 1910 H, Total Protein 6.6, Albumin 4.0, Globulin 2.6, Albumin/Globulin Ratio 1.5 Result diagrams: 06/27/21 16:13 06/27/21 16:13 Orders (Tests/Meds): ED MEDICATIONS Discontinued Medications Generic Name Dose Route Start Last Admin Trade Name Erasmoq PRN Reason Stop Dose Admin Furosemide 20 mg 06/27/21 18:09 Furosemide 20 Mg/2 Ml Vial IV 06/27/21 18:10 ONCE ONE - ECG Data Tracing #1 I reviewed this ECG and interpreted as documented below: Sinus rhythm with PAC. Incomplete bundle branch block. No ST elevation or depression. No change from study 06/03/2021. ECG initial impression date: 06/27/21 ECG initial impression time: 16:03 Medical Decision Narrative: 81yo M presents the emergency department secondary to shortness of breath. Patient's O2 sat is 80 on arrival and he is placed on nonrebreather. His O2 sats have improved to 98% in just a few minutes. Transition back to nasal cannula. Laboratory studies, EKG, chest x-ray are being obtained. He is in no acute distress currently denies any pain. Patient does have a rattling cough but lung sounds are unremarkable, though somewhat limited by body habitus. Patient's laboratory studies are largely unremarkable except for an elevated BNP. Treated with Lasix IV in the emergency department. Offered to treat the patient with steroid for his tight lung sounds
[2021-06-27 16:27] LABS: Chloride 107 mmol/L (98-107); Potassium 4.9 mmoL/L (3.5-5.1); Sodium 138 mmol/L (136-145)
[2021-06-27 16:30] VITALS: BP 156/58; PULSE 83; RESP 27; O2SAT 93
[2021-06-27 16:30] LABS: Alanine Aminotransferase 19 U/L (12-78); Albumin/Globulin Ratio 1.5 (1.1-1.8); Alkaline Phosphatase 126 U/L (38-126); Anion Gap 15.9 mEq/L (5-15); Aspartate Amino Transferase 32 U/L (17-59); Bilirubin,Total 0.7 mg/dl (0.2-1.3); Blood Urea Nitrogen 15 mg/dl (9-20); Carbon Dioxide 20 mmol/L (22.0-30.0); Creatinine Clearance Estimated 68 mL/min (50-200); Estimated Glomerular Filt Rate 53 ml/min (>60); GFR (African American) 64 ML/MIN (>60); Globulin 2.6 g/dL (1.3-3.2); Total Protein,Serum 6.6 g/dl (6.3-8.2)
[2021-06-27 16:31] LABS: Calcium 8.7 mg/dl (8.4-10.2); Glucose 305 mg/dl (74-100)
[2021-06-27 16:40] LABS: NT Pro Brain Natriuretic Pep. 1910 pg/mL (0-450)
[2021-06-27 16:44] LABS: Troponin I < 0.01 ng/ml (0.00-0.034)
[2021-06-27 17:00] VITALS: BP 160/58; PULSE 83; RESP 24; O2SAT 93
[2021-06-27 18:49] VITALS: BP 160/58; PULSE 83; RESP 24; TEMP 37.6; O2SAT 93
== END 2021-06-27 18:51 | disposition home or self-care (01) ==
PROVIDERS: Emergency Provider Family Medicine; PCP Family Medicine
DX: I50.9 Heart failure, unspecified (principal); J44.9 Chronic obstructive pulmonary disease, unspecified; I48.0 Paroxysmal atrial fibrillation; R79.89 Other specified abnormal findings of blood chemistry; E11.9 Type 2 diabetes mellitus without complications; K21.9 Gastro-esophageal reflux disease without esophagitis; E78.5 Hyperlipidemia, unspecified; I10 Essential (primary) hypertension; Z87.891 Personal history of nicotine dependence; Z79.899 Other long term (current) drug therapy
CPT/HCPCS: 71045; 80053; 83880; 84484; 85025; 93005; 96374; 99283

== ENCOUNTER → 2021-07-06 19:09 | Outpatient (CLI) | payer MEDICARE, OTHER, SELFPAY ==
[2021-07-06 20:36] LABS: Alanine Aminotransferase 18 U/L (12-78); Albumin Level 4.1 g/dl (3.5-5.0); Albumin/Globulin Ratio 1.5 (1.1-1.8); Alkaline Phosphatase 101 U/L (38-126); Anion Gap 13.1 mEq/L (5-15); Aspartate Amino Transferase 28 U/L (17-59); Bilirubin,Total 0.5 mg/dl (0.2-1.3); Blood Urea Nitrogen 20 mg/dl (9-20); Calcium 9.1 mg/dl (8.4-10.2); Carbon Dioxide 28 mmol/L (22.0-30.0); Chloride 104 mmol/L (98-107); Estimated Glomerular Filt Rate 53 ml/min (>60); GFR (African American) 64 ML/MIN (>60); Globulin 2.8 g/dL (1.3-3.2); Glucose 54 mg/dl (74-100); Potassium 4.1 mmoL/L (3.5-5.1); Sodium 141 mmol/L (136-145); Total Protein,Serum 6.9 g/dl (6.3-8.2)
== END ==
PROVIDERS: Visit Provider Family Medicine
DX: N18.9 Chronic kidney disease, unspecified (principal)
CPT/HCPCS: 80053

== ENCOUNTER → 2021-07-20 17:10 | Outpatient (CLI) | payer MEDICARE, OTHER, SELFPAY ==
[2021-07-20 21:26] LABS: Anion Gap 15.4 mEq/L (5-15); Blood Urea Nitrogen 21 mg/dl (9-20); Calcium 9.2 mg/dl (8.4-10.2); Carbon Dioxide 27 mmol/L (22.0-30.0); Chloride 101 mmol/L (98-107); Estimated Glomerular Filt Rate 42 ml/min (>60); GFR (African American) 51 ML/MIN (>60); Glucose 136 mg/dl (74-100); Potassium 4.4 mmoL/L (3.5-5.1); Sodium 139 mmol/L (136-145)
== END ==
PROVIDERS: Internal Medicine Cardiovascular Disease; Visit Provider Family Medicine
DX: E78.5 Hyperlipidemia, unspecified (principal); I11.9 Hypertensive heart disease without heart failure; I25.10 Atherosclerotic heart disease of native coronary artery without angina pectoris; I48.0 Paroxysmal atrial fibrillation; I50.30 Unspecified diastolic (congestive) heart failure; I67.2 Cerebral atherosclerosis; I73.9 Peripheral vascular disease, unspecified; R06.00 Dyspnea, unspecified; R60.9 Edema, unspecified; Z95.1 Presence of aortocoronary bypass graft
CPT/HCPCS: 80048

== ENCOUNTER → 2021-08-03 09:19 | Outpatient (POV) | payer MEDICARE, OTHER, SELFPAY | PROVIDERS: Visit Provider Internal Medicine Nephrology | DX: Z00.00 Encounter for general adult medical examination without abnormal findings (principal) ==

== ENCOUNTER 2021-09-16 13:09 | Inpatient (IN) | payer MEDICARE, SELFPAY ==
[2021-09-16] VITALS (20 sets, daily range): BP systolic 115–181; BP diastolic 38–66; PULSE 75–98; RESP 22–38; TEMP 36.8–37.5; O2SAT 89–98; BMI 36.8; BMI 37.6
--- NOTE | 2021-09-16 13:04 | ECG_ITS ---
APPROVED REPORT Exam: Resting ECG HR:96 bpm ECG Measurements Heart Rate 96 AXES QRSd 146 QRS 51 QT 373 T 180 QTc 427 Conclusion ATRIAL FIBRILLATION LEFT BUNDLE BRANCH BLOCK [120+ ms QRS DURATION, 80+ ms Q/S IN V1/V2, 85+ ms R IN I/aVL/V5/V6] ABNORMAL ECG UNCONFIRMED REPORT Electronically signed by : Rom Brady MD 09/23/2021 21:58:07
--- NOTE | 2021-09-16 13:11 | XR_ITS ---
FINAL REPORT CLINICAL HISTORY: sob COMPARISON: 06/27/2021 FINDINGS: SINGLE VIEW CHEST There is cardiomegaly and pulmonary vascular congestion. The patient is status post median sternotomy. There is mild bibasilar atelectasis or scar. There is no pneumothorax. IMPRESSION: Bibasilar atelectasis or scar. No significant change from prior. Reviewed, Interpreted and Dictated by Marco Antonio Griffiths III, MD Transcribed by Tish Resendez Authenticated by Marco Antonio Griffiths III, MD on 09/16/2021 02:06:08 PM [facility]
--- NOTE | 2021-09-16 13:19 | PC.NURSE ---
contacted lab to draw blood on pt, was unsuccessful with IV stick
--- NOTE | 2021-09-16 13:29 | HMH.EDGENADL ---
ED Disposition Clinical Impression: Anemia Qualifiers: Anemia type: unspecified type Qualified Code(s): D64.9 - Anemia, unspecified Heart failure Qualifiers: Heart failure type: unspecified Heart failure chronicity: acute on chronic Qualified Code(s): I50.9 - Heart failure, unspecified Disposition: Admitted As Inpatient Condition on Discharge: [facility] Critical Care Critical Care Time: No Attestation: On 09/16/21, the high probability of a clinically significant, sudden or life threatening deterioration of the following system(s) required my full and direct attention, intervention and personal management. The time I documented below is in addition to time spent performing reported procedures but includes the following listed in this critical care notation. Medical Decision Making - Bill Inquiry Pt receiving controlled substance: No Vital Signs: 09/16/21 13:09 09/16/21 13:11 09/16/21 13:20 Temperature 99.5 F Temperature Source Oral Pulse Rate 95 H Pulse Rate [Left Radial] 93 H Respiratory Rate 22 Blood Pressure Blood Pressure [Left Arm] 142/62 H Blood Pressure Mean Blood Pressure Mean [Left Arm] 88 Blood Pressure Source [Left Arm] Automatic Cuff Blood Pressure Position [Left Arm] Sitting 02 Sat by Pulse Oximetry 91 L 91 L Oxygen Delivery Method Nasal Cannula Nasal Cannula Oxygen Flow Rate (LPM) 4 4 09/16/21 14:00 09/16/21 14:01 09/16/21 14:23 Temperature Temperature Source Pulse Rate 94 H 90 92 H Pulse Rate [Left Radial] Respiratory Rate 28 H Blood Pressure 146/62 H 140/55 L Blood Pressure [Left Arm] Blood Pressure Mean Blood Pressure Mean [Left Arm] Blood Pressure Source [Left Arm] Blood Pressure Position [Left Arm] 02 Sat by Pulse Oximetry 91 L 89 L Oxygen Delivery Method Nasal Cannula Nasal Cannula Oxygen Flow Rate (LPM) 4 4 09/16/21 14:31 09/16/21 15:00 09/16/21 15:31 Temperature Temperature Source Pulse Rate 95 H 98 H 90 Pulse Rate [Left Radial] Respiratory Rate 24 31 H Blood Pressure 133/53 L 142/50 H 115/38 L Blood Pressure [Left Arm] Blood Pressure Mean 79 Blood Pressure Mean [Left Arm] Blood Pressure Source [Left Arm] Blood Pressure Position [Left Arm] 02 Sat by Pulse Oximetry 92 L 93 L 93 L Oxygen Delivery Method Nasal Cannula Nasal Cannula Nasal Cannula Oxygen Flow Rate (LPM) 5 4 4 09/16/21 16:00 09/16/21 16:45 09/16/21 17:00 Temperature Temperature Source Pulse Rate 86 93 H 89 Pulse Rate [Left Radial] Respiratory Rate 26 H 25 H Blood Pressure 117/39 L 123/53 L 140/59 L Blood Pressure [Left Arm] Blood Pressure Mean Blood Pressure Mean [Left Arm] Blood Pressure Source [Left Arm] Blood Pressure Position [Left Arm] 02 Sat by Pulse Oximetry 98 90 L 90 L Oxygen Delivery Method Nasal Cannula Nasal Cannula Nasal Cannula Oxygen Flow Rate (LPM) 4 4 4 - Lab Data Lab Results 09/16/21 13:50: WBC 13.9 H, RBC 3.37 L, Hgb 6.5 L*, Hct 23.8 L, MCV 70.6 L, MCH 19.6 L, MCHC 27.8 L, RDW 18.6 H, Plt Count 332, MPV 7.3 L, Neut % (Auto) 87.9 H, Lymph % (Auto) 5.0 L, Treasure % (Auto) 5.3, Eos % (Auto) 1.5, Baso % (Auto) 0.3, Neut # (Auto) 12.2 H, Lymph # (Auto) 0.7, Treasure # (Auto) 0.7, Eos # (Auto) 0.2, Baso # (Auto) 0.0, Total Counted 100, Neutrophils % (Manual) 87 H, Lymphocytes % (Manual) 7 L, Monocytes % (Manual) 4, Eosinophils % (Manual) 2, Platelet Estimate Normal, RBC Morphology Not Reportable, Hypochromasia 3+, Microcytosis 2+ 09/16/21 13:50: PT 11.8, INR 1.05, APTT 21.1 L 09/16/21 13:50: D-Dimer 0.95 H 09/16/21 13:50: Troponin I 0.03, NT-Pro-B Natriuret Pep 3860 H 09/16/21 13:50: Sodium 139, Potassium 4.1, Chloride 104, Carbon Dioxide 23, Anion Gap 16.1 H, BUN 31 H, Creatinine 1.60 H, Estimated Creat Clear 56, Estimated GFR 42 L, Est GFR ( Amer) 51 L, Glucose 201 H, Calcium 8.3 L 09/16/21 13:50: Total Bilirubin 0.9, Direct Bilirubin 0.5 H, Conjugated Bilirubin 0.0, Indirect Bi
[2021-09-16 14:08] LABS: Basophils % 0.3 % (0.1-2.0); Eosinophils # 0.2 K/mm3 (0.0-0.4); Eosinophils % 1.5 % (0.1-12.0); Hematocrit 23.8 % (42.0-52.0); Lymphocytes # 0.7 K/mm3 (0.7-4.5); Mean Corpuscular HGB Conc 27.8 g/dL (31.8-35.4); Mean Corpuscular Hemoglobin 19.6 pg (27.0-31.2); Mean Corpuscular Volume 70.6 fl (80-94); Mean Platelet Volume 7.3 fl (7.4-10.4); Monocytes # 0.7 K/mm3 (0.1-1.0); Monocytes % 5.3 % (1.7-9.3); Neutrophils # 12.2 K/mm3 (1.8-7.8); Neutrophils % 87.9 % (37.0-80.0); Platelet Count 332 K/mm3 (142-424); Red Blood Count 3.37 M/mm3 (4.60-6.20); Red Cell Distribution Width 18.6 % (11.5-17.5); White Blood Count 13.9 K/mm3 (4.8-10.8)
--- NOTE | 2021-09-16 14:10 | PC.NURSE ---
pt reports he feels like he is breathing better, pt denies presence of cp at this time
--- NOTE | 2021-09-16 14:21 | PC.NURSE ---
Rt at bedside
[2021-09-16 14:33] LABS: MANUAL DIFFERENTIAL MANUAL DIFFERENTIAL (MANUAL DIFF)
--- NOTE | 2021-09-16 14:33 | PC.NURSE ---
notified TREVON GARCIA of critical hgb
[2021-09-16 14:35] LABS: Activated Partial Thrombo Time 21.1 seconds (22.8-30.6); INR 1.05 (0.9-1.1); Prothrombin Time 11.8 seconds (10.1-12.5)
[2021-09-16 14:38] LABS: Hemoglobin 6.5 g/dL (14.1-18.0)
--- NOTE | 2021-09-16 14:39 | PC.NURSE ---
Lab at bedside
[2021-09-16 14:45] LABS: Anion Gap 16.1 mEq/L (5-15); Blood Urea Nitrogen 31 mg/dl (9-20); Calcium 8.3 mg/dl (8.4-10.2); Carbon Dioxide 23 mmol/L (22.0-30.0); Chloride 104 mmol/L (98-107); Creatinine Clearance Estimated 56 mL/min (50-200); Estimated Glomerular Filt Rate 42 ml/min (>60); GFR (African American) 51 ML/MIN (>60); Glucose 201 mg/dl (74-100); Potassium 4.1 mmoL/L (3.5-5.1); Sodium 139 mmol/L (136-145)
[2021-09-16 14:49] LABS: D-Dimer 0.95 ug/mL (0.0-0.5)
[2021-09-16 15:01] LABS: Coronavirus 19, PCR Not Detected (NotDetected); Influenza A, PCR Not Detected (NotDetected); Influenza B, PCR Not Detected (NotDetected)
[2021-09-16 15:06] LABS: Alanine Aminotransferase 25 U/L (12-78); Aspartate Amino Transferase 44 U/L (17-59); Bilirubin,Unconjugated 0.4 mg/dL (0.0-1.1)
[2021-09-16 15:07] LABS: Albumin Level 3.9 g/dl (3.5-5.0); Alkaline Phosphatase 117 U/L (38-126); Bilirubin,Direct 0.5 mg/dl (0.0-0.4); Bilirubin,Indirect 0.4 mg/dL (0.0-0.9); Bilirubin,Total 0.9 mg/dl (0.2-1.3); Total Protein,Serum 6.9 g/dl (6.3-8.2)
[2021-09-16 15:08] LABS: Eosinophils % 2 % (0-3); Hypochromasia 3+; Lymphocytes % 7 % (10-50); Microcytosis 2+; Monocytes % 4 % (2-9); Neutrophils % 87 % (42-76); Platelet Estimate Normal; Total Cells Counted 100
--- NOTE | 2021-09-16 15:40 | CT_ITS ---
PROCEDURE INFORMATION: Exam: CTA Chest With Contrast Exam date and time: 09/16/2021 3:40 PM Age: 81 years old Clinical indication: Shortness of breath; Prior surgery; Additional info: Chest pain, SOB, dimer=0.95 TECHNIQUE: Imaging protocol: Computed tomographic angiography of the chest with contrast. 3D rendering (Not supervised by radiologist): MIP and/or 3D reconstructed images were created by the technologist. Radiation optimization: All CT scans at this facility use at least one of these dose optimization techniques: automated exposure control; mA and/or kV adjustment per patient size (includes targeted exams where dose is matched to clinical indication); or iterative reconstruction. Contrast material: ISOVUE 370; Contrast volume: 70 ml; Contrast route: INTRAVENOUS (IV); COMPARISON: CT ANGIO CHEST 11/10/2020 4:26 PM FINDINGS: Tubes, catheters and devices: There are sternal wires consistent with previous sternotomy incision. Pulmonary arteries: No evidence of pulmonary embolism. Aorta: No evidence of aortic dissection. Lungs: Atelectatic and/or infiltrative changes noted within both lung bases. Pleural spaces: Bilateral pleural effusions. Heart: Mild cardiomegaly. No pericardial effusion. Lymph nodes: Calcified left hilar lymph nodes present. Gallbladder and bile ducts: Multiple calcified gallstones are present. Spleen: The spleen demonstrates punctate calcifications, consistent with remote granulomatous organism exposure. Bones/joints: The thoracic spine demonstrates mild degenerative changes at multiple levels. Soft tissues: Unremarkable. IMPRESSION: 1. No evidence of pulmonary embolism. 2. No evidence of aortic dissection. 3. Bilateral pleural effusions. 4. Atelectatic and/or infiltrative changes noted within both lung bases. 5. Multiple calcified gallstones are present.
[2021-09-16 16:22] LABS: NT Pro Brain Natriuretic Pep. 3860 pg/mL (0-450); Troponin I 0.03 ng/ml (0.00-0.034)
--- NOTE | 2021-09-16 17:09 | PC.NURSE ---
TREVON GARCIA speaking with Dr Brady who is marketing operations consultant for Dr. Hernandez
[2021-09-16 17:27] LABS: Troponin I 0.06 ng/ml (0.00-0.034)
--- NOTE | 2021-09-16 17:34 | PC.NURSE ---
notified powerhouse helper of admission
--- NOTE | 2021-09-16 17:57 | PC.NURSE ---
report called hussein garnett on second floor at this time
[2021-09-16 20:16] LABS: Troponin I 0.12 ng/ml (0.00-0.034)
--- NOTE | 2021-09-16 22:33 | ECG_ITS ---
APPROVED REPORT Exam: Resting ECG HR:89 bpm ECG Measurements Heart Rate 89 AXES QRSd 142 QRS 82 QT 381 T -56 QTc 427 Conclusion UNCERTAIN REGULAR RHYTHM LEFT BUNDLE BRANCH BLOCK [120+ ms QRS DURATION, 80+ ms Q/S IN V1/V2, 85+ ms R IN I/aVL/V5/V6] ABNORMAL ECG UNCONFIRMED REPORT Electronically signed by : Rom Brady MD 09/17/2021 20:22:51
[2021-09-17] VITALS (18 sets, daily range): BP systolic 113–191; BP diastolic 44–82; PULSE 85–110; RESP 22–38; TEMP 36.8–38.1; O2SAT 89–95; BMI 37.4; BMI 37.3
[2021-09-17 02:38] LABS: Microscopic, Urine URINE MICROSCOPIC (MICROSCOPIC)
[2021-09-17 02:58] LABS: Appearance,Urine CLEAR (Clear); Bilirubin,Urine Negative (Negative); Blood, Urine TRACE-I (Negative); Color,Urine YELLOW (Yellow); Glucose,Urine (UA) Negative (Negative); Ketones,Urine Negative (Negative); Leukocyte Esterase,Urine Negative (Negative); Nitrate,Urine Negative (Negative); Protein,Urine Negative (Negative); Urobilinogen,Urine 0.2 EU/dl (0.2)
[2021-09-17 03:01] LABS: Bacteria,Urine Trace /lpf; RBC,Urine Occasional #/hpf (0-3)
[2021-09-17 04:24] LABS: Basophils % 0.3 % (0.1-2.0); Eosinophils # 0.2 K/mm3 (0.0-0.4); Eosinophils % 1.5 % (0.1-12.0); Hematocrit 28.9 % (42.0-52.0); Lymphocytes # 1.1 K/mm3 (0.7-4.5); Lymphocytes % 8.2 % (10-50); Mean Corpuscular HGB Conc 29.1 g/dL (31.8-35.4); Mean Corpuscular Hemoglobin 20.6 pg (27.0-31.2); Mean Corpuscular Volume 70.8 fl (80-94); Mean Platelet Volume 7.3 fl (7.4-10.4); Monocytes # 1.1 K/mm3 (0.1-1.0); Monocytes % 8.2 % (1.7-9.3); Neutrophils % 81.8 % (37.0-80.0); Platelet Count 320 K/mm3 (142-424); Red Blood Count 4.08 M/mm3 (4.60-6.20); White Blood Count 13.4 K/mm3 (4.8-10.8)
[2021-09-17 04:31] LABS: Hemoglobin 8.3 g/dL (14.1-18.0)
[2021-09-17 04:33] LABS: Chloride 106 mmol/L (98-107)
[2021-09-17 04:34] LABS: Potassium 3.5 mmoL/L (3.5-5.1); Sodium 139 mmol/L (136-145)
[2021-09-17 04:36] LABS: Blood Urea Nitrogen 29 mg/dl (9-20); Creatinine Clearance Estimated 62 mL/min (50-200); Estimated Glomerular Filt Rate 45 ml/min (>60); GFR (African American) 55 ML/MIN (>60)
[2021-09-17 04:37] LABS: Anion Gap 10.5 mEq/L (5-15); Calcium 7.9 mg/dl (8.4-10.2); Carbon Dioxide 26 mmol/L (22.0-30.0)
[2021-09-17 04:48] LABS: Glucose 48 mg/dl (74-100)
[2021-09-17 05:05] LABS: NT Pro Brain Natriuretic Pep. 6050 pg/mL (0-450)
[2021-09-17 05:16] LABS: Troponin I 0.33 ng/ml (0.00-0.034)
[2021-09-17 05:33] LABS: POC Glucose,Bedside 89 (70-110)
[2021-09-17 05:33] LABS: POC Glucose,Bedside 65 (70-110)
--- NOTE | 2021-09-17 06:20 | ECG_ITS ---
APPROVED REPORT Exam: Resting ECG HR:95 bpm ECG Measurements Heart Rate 95 AXES QRSd 134 QRS 85 QT 377 T 249 QTc 429 Conclusion ATRIAL FIBRILLATION INTRAVENTRICULAR CONDUCTION DELAY [130+ ms QRS DURATION] ABNORMAL ECG UNCONFIRMED REPORT Electronically signed by : Rom Brady MD 09/17/2021 20:21:32
[2021-09-17 07:06] LABS: POC Glucose,Bedside 216 (70-110)
--- NOTE | 2021-09-17 07:39 | HMH.PHAVTE ---
[facility] Pharmacy VTE Monitoring - Patient Demographics Admission date: 09/17/21 Report Date: 09/17/21 Time: 07:39 Allergies/Adverse Reactions: Patient Allergies oxycodone Allergy (Intermediate, Verified 08/26/21 14:19) I-RASH Sulfa (Sulfonamide Antibiotics) Allergy (Unknown, Verified 08/26/21 14:19) Height: 1.7 m Weight: 108.272 kg Patient Problems: Current Active Problems Anemia (Acute) Heart failure (Acute) - VTE Risk Labs: VTE Related Lab Results Hgb 8.3 g/dL (14.1-18.0) L D 09/17/21 04:10 Hct 28.9 % (42.0-52.0) L 09/17/21 04:10 Plt Count 320 K/mm3 (142-424) 09/17/21 04:10 PT 11.8 seconds (10.1-12.5) 09/16/21 13:50 INR 1.05 (0.9-1.1) 09/16/21 13:50 APTT 21.1 seconds (22.8-30.6) L 09/16/21 13:50 BUN 29 mg/dl (9-20) H 09/17/21 04:10 Creatinine 1.50 mg/dl (0.66-1.25) H 09/17/21 04:10 Estimated Creat Clear 62 mL/min (50-200) 09/17/21 04:10 Was VTE Risk Assessment Performed: Yes VTE Score: 9 VTE Risk Level: Moderate Risk Clinical Trial Participant: No - Prophylaxis VTE Prophylaxis Ordered?: Yes Types of VTE Prophylaxis: TEDS Knee High
--- NOTE | 2021-09-17 07:46 | HMH.PHAINT ---
home medication list verified using list from outpatient pharmacy and [facility] cardiology office
--- NOTE | 2021-09-17 07:47 | PC.NURSE ---
2128 pm on 09/16 dr mcneal called regarding pt with soa worsening upon sitting on side of bed, troponin levels reported 0.12 up from 0.03 and lung sounds very diminished, not orders received for lasix 40mg iv given before 1 unit of blood, and then 40mg iv lasix after unit, of blood, duonebs every 4 hours as needed and labs in am, rythm strip also reported to dr mcneal with mild st depression, ekg now and in am ordered, orders were repeated and verified, ekg was obtained and taken to er physician for interpretation with no new orders noted. 2347 dr mcneal called for pt with insulin dependence and no fsbs were ordered and informed that pt with sats drop to 87% when sitting on side of bed to pee, and pt is having trouble urinating, note orders received to insert langley to bsd, and SSI medium intensity ordered repeated and verified.0335 pt noted with low grade temp, order for tylenol recieved, repeated and verified 0519 troponin levels called to dr mcneal 0.33 repeated and verified with no new orders received.
--- NOTE | 2021-09-17 08:00 | CA_ITS ---
APPROVED REPORT EXAM: Comprehensive 2D, Doppler, and color-flow Echocardiogram Pharmaceutical Analyst: Chelsea Guadarrama RVT Ht: 5 ft 7 in Wt: 240lbs BSA: 2.19 BP: 132/76 mmHg Indications: SOA,ELEVATED TROP,CHF,COPD,CABG,A-FIB,LBBB,PALPS,OBESITY,HTN,HLD TDS 2D Dimensions LVOT 2.25 cm (M/F) 1.5-2.5 LA Volume 68.80 mL LA Volume Index 31.55 mL/m2 (M/F) 16-34 M-Mode Dimensions RVDd 4.07 cm (0.9-2.6) LA Diam 4.91 cm (1.9-4.0) LVDd 4.60 cm (3.5-5.7) Ao Diam 2.83 cm (2.0-3.7) LVDs 3.17 cm (3.5-5.7) IVSd 0.89 cm (0.6-1.1) PWd 0.80 cm (0.6-1.1) EF (Teich) 58.90% FS 31.10% EDV (Teich) 97.30 mL TAPSE 1.91 (<1.7) ESV (Teich) 40.00 mL LV Diastology E Decel Time 203.00 (160-240 msec) E/A Ratio 1.3 MED E' 4.00 (< 7 cm/sec) E'/MED E' Ratio 38.20 (>14) LAT E' 8.10 (<10 cm/sec) E/LAT E' Ratio 18.86 (>14) Aortic Valve AO VTI 54.09 (18-25 cm) Mitral Valve MV E Max Kristofer. 153.00 (40-130 cm/s) MV A Velocity 117.00 (40-130 cm/s) E/A Ratio 1.31 MV Decel. Time 203.00 (160-240 ms) MV PHT 60.00 ms Pulmonary Valve PV Peak Velocity 139.00 (50-150 cm/s) Tricuspid Valve TR P. Velocity 364.00 cm/s RAP Estimate 10.00 mmHg RVSP 63.00 mmHg Left Ventricle Left atrium is mildly enlarged, left ventricle is normal size, mild concentric left ventricular hypertrophy, visually estimated ejection fraction 50% with no regional wall motion abnormality, endocardial surfaces are poorly visualized. Grade 2 diastolic dysfunction seen with tissue Doppler evidence of raise left atrial pressure. Right Ventricle Right atrium and right ventricle are mildly enlarged with normal contractility. Aortic Valve Aortic valve is minimally thickened and fibrosed, there is no aortic stenosis or aortic insufficiency. Mitral Valve Mitral valve has mitral calcification, leaflets are minimally thickened, there is no mitral stenosis, there is mild mitral regurgitation. Tricuspid Valve Tricuspid grossly normal, there is mild tricuspid regurgitation, calculated right ventricular systolic pressure 63 mmHg. Pulmonic Valve Pulmonic valve is poorly visualized. Great Vessels Aortic root is normal size. Inferior vena cava is normal size with normal inspiratory collapse. Pericardium No significant pericardial effusion noted. Conclusion 1. Biatrial enlargement, normal left ventricular size, mild concentric left ventricular hypertrophy, visually estimated ejection fraction 50% with no obvious regional wall motion abnormality, endocardial surfaces are poorly visualized, grade 2 diastolic dysfunction seen without tissue Doppler evidence of raise left atrial pressure. 2. Mildly enlarged right ventricle with normal contractility. 3. Mild mitral and tricuspid regurgitation, calculated right ventricular systolic pressure 63 mmHg. 4. No significant pericardial effusion noted. 5. Inferior vena cava is normal size with normal inspiratory collapse. Electronically signed by : Shane Degroot MD 09/18/2021 13:40:27
--- NOTE | 2021-09-17 08:54 | HMH.HP ---
*Admission Date: 09/17/21 *Chief complaint: Chest Pain *History of present illness: 81-year-old male patient presented to the [facility] emergency department with reports of chest pain and increasing shortness of breath over the last couple days. He does report weight gain over the last several days even while maintaining his medical regimen. He denies any fever/chills/body aches or nausea/vomiting/diarrhea. He does have a history of congestive heart failure, COPD, and home O2 at 3 to 4 L. In the emergency department he did was escalated to 6 L per nasal cannula and hemoglobin was found to be 6.5. He did receive 1 unit of packed red blood cells for that with increase of hemoglobin to 8.3 09/16/21 CXR: IMPRESSION: Bibasilar atelectasis or scar. No significant change from prior. Reviewed, Interpreted and Dictated by Marco Antonio Griffiths III, MD 09/16/21 Chest CTA: FINDINGS: Tubes, catheters and devices: There are sternal wires consistent with previous sternotomy incision. Pulmonary arteries: No evidence of pulmonary embolism. Aorta: No evidence of aortic dissection. Lungs: Atelectatic and/or infiltrative changes noted within both lung bases. Pleural spaces: Bilateral pleural effusions. Heart: Mild cardiomegaly. No pericardial effusion. Lymph nodes: Calcified left hilar lymph nodes present. Gallbladder and bile ducts: Multiple calcified gallstones are present. Spleen: The spleen demonstrates punctate calcifications, consistent with remote granulomatous organism exposure. Bones/joints: The thoracic spine demonstrates mild degenerative changes at multiple levels. Soft tissues: Unremarkable. IMPRESSION: 1. No evidence of pulmonary embolism. 2. No evidence of aortic dissection. 3. Bilateral pleural effusions. 4. Atelectatic and/or infiltrative changes noted within both lung bases. 5. Multiple calcified gallstones are present. Electronically signed by Morris Faith DO 81-year-old male patient resting quietly in bed she does report some shortness of breath during the night but denies chest pain. General surgery will be consulted for ongoing anemia and GI bleeds in the past. We will consult cardiology also for chest pain [facility] History I have reviewed the patient's past medical history: Yes Medical History: Reports:: Arrhythmia, Atrial Fibrillation, Cancer, Congestive Heart Failure, Chronic Obstructive Pulmonary Disease (COPD), Congenital Heart Disease, Coronary Artery Disease, Diabetes Mellitus Type 2, Gastroesophageal Reflux Disease(GERD), Gastrointestinal Bleed, Home Oxygen, Hyperlipidemia, Hypertension, Lung Disease, Kidney Stones, Myocardial Infarction, Renal Insufficiency Denies:: Diabetes Mellitus Type 1, Internal Pacemaker, MRSA, Seizures *Have you ever received a pneumonia vaccine?: Yes *Have you received a flu vaccine this season?: Yes Other Medical History: Reports: Anemia, Arthritis, Other Other Surgeries: Yes: No Previous Surgery, Angiogram, Angioplasty, CABG, Cancer Surgery, Cardiac Catheterization, Cardiac Surgery, Colonoscopy, Coronary Stent, EGD, Hernia Repair, Other. No: Pacemaker Amputation: No Fractures: No - *Social History Smoking Status: Former smoker Tobacco Type: cigarettes # Packs/Day (cigarettes): 1 Alcohol Intake: never Alcohol Intake Frequency:: other Substance Use Type: denies use *Occupational Status:: retired Housing: house Household Members: spouse *Travel in the last 8 weeks: None Family Hx:: Anemia, Coronary Artery Disease, Diabetes, Heart Attack, Hyperlipidemia, Hypertension, Stroke Review of Systems - Review of Systems Review of systems:: pertinent systems reviewed and negative unless documented below - Constitutional Reports fatigue, Reports lack of energy, Reports weakness - Eyes Denies change in vision, Denies double vision - ENT Reports poor balance, Denies abnormal hearing - *Cardiovascular Reports chest pain, Reports ben
--- NOTE | 2021-09-17 09:28 | PC.NURSE ---
Notified Dr. Hernadez of consult.
[2021-09-17 10:43] LABS: Occult Blood,Stool Positive (Negative)
--- NOTE | 2021-09-17 10:44 | PC.NURSE ---
At bedside w/ pt at this time. RR 40, applied non rebreather and called RT @ 1027. Called and spoke with Rolando Gibbs APRN and made him aware of pt's jyotsna and dyspnea. Called RT again to request high flow cannula. They stated it would be just a few mins. Dr. Gilman is also to be consulted, per Rolando Gibbs APRN.
--- NOTE | 2021-09-17 10:57 | PC.NURSE ---
Pt more comfortable at this time, sitting on side of bed. Dr. Valencia also ordered 1 mg iv ativan x 1 and a stat cbc.
--- NOTE | 2021-09-17 10:58 | HMH.GSCON ---
*Admission Date: 09/17/21 *Reason for consult:: Anemia; possible gastrointestinal hemorrhage *History of present illness: This is a 81-year-old gentleman seen in consultation from the service of Dr. Valencia for evaluation regarding anemia and possible gastrointestinal hemorrhage. He has a very long history of anemia and has undergone both outpatient and inpatient evaluation over the past few years. Please see timeline below. Note: Currently the patient states that he remains short of air and does not wish to undergo any invasive procedures. HPI forwarded from this admissions H&P: 81-year-old male patient presented to the [facility] emergency department with reports of chest pain and increasing shortness of breath over the last couple days. He does report weight gain over the last several days even while maintaining his medical regimen. He denies any fever/chills/body aches or nausea/vomiting/diarrhea. He does have a history of congestive heart failure, COPD, and home O2 at 3 to 4 L. In the emergency department he did was escalated to 6 L per nasal cannula and hemoglobin was found to be 6.5. He did receive 1 unit of packed red blood cells for that with increase of hemoglobin to 8.3 June 10, 2021: He was seen in the surgical office status post esophagogastroduodenoscopy. Note that colonoscopy had been planned; however, it was not performed secondary to patient not completing a bowel preparation. At this visit the patient reiterated his wishes to not undergo capsule endoscopy as had been recommended on numerous occasions. Also note that his esophagogastroduodenoscopy was somewhat limited secondary to retained food particles. No obvious sign of bleeding was noted. At this visit he was scheduled for repeat EGD/colonoscopy; however, he did not maintain the appointment. June 03, 2021: The patient was seen during short-stay hospitalization for anemia/weakness. UGI/SBFT and capsule endoscopy were once again discussed with the patient; however, he continued to decline. He was agreeable to plans for repeat EGD/colonoscopy in the near future . May 28, 2021: Patient underwent esophagogastroduodenoscopy. Colonoscopy was not performed secondary to the patient not completing a bowel preparation. No sign of obvious bleeding noted. Visualization was limited secondary to retained food particles. Some patchy inflammatory changes were noted. Some polypoid lesions were also noted. October 05, 2018: Inpatient consultation for possible lower gastrointestinal hemorrhage was completed. The patient stated that everything has slowed down a lot now . He was not interested in further inpatient evaluation and agreed to follow-up as an outpatient. September 28, 2018: The patient underwent esophagogastroduodenoscopy and colonoscopy. Multiple complex polyps were removed. No sign of active bleeding was noted. Bowel preparation was moderate to poor and short-term repeat evaluation was recommended. No sign of ulceration or other etiology for bleeding noted on EGD. January 13, 2018: The patient underwent esophagogastroduodenoscopy or changes consistent with possible erosive esophagitis versus Marie-Leal tear were noted. No active bleeding was seen. Some fundic gland polyps were also noted. Gastritis was confirmed. Review of Systems - Constitutional Denies chills - *Cardiovascular Reports shortness of breath - *Respiratory Denies cough - *Neurolog
[2021-09-17 11:11] LABS: MANUAL DIFFERENTIAL MANUAL DIFFERENTIAL (MANUAL DIFF)
--- NOTE | 2021-09-17 11:12 | HMH.PNCARD ---
Exam Vital signs and Labs for Last 24 Hours: Temp Pulse Resp BP Pulse Ox 99.1 F 91 H 24 143/82 H 95 09/17/21 08:00 09/17/21 08:00 09/17/21 08:00 09/17/21 08:00 09/17/21 08:00 Laboratory Results - last 24 hr 09/16/21 13:50: WBC 13.9 H, RBC 3.37 L, Hgb 6.5 L*, Hct 23.8 L, MCV 70.6 L, MCH 19.6 L, MCHC 27.8 L, RDW 18.6 H, Plt Count 332, MPV 7.3 L, Neut % (Auto) 87.9 H, Lymph % (Auto) 5.0 L, [place] % (Auto) 5.3, Eos % (Auto) 1.5, Baso % (Auto) 0.3, Neut # (Auto) 12.2 H, Lymph # (Auto) 0.7, [place] # (Auto) 0.7, Eos # (Auto) 0.2, Baso # (Auto) 0.0, Total Counted 100, Neutrophils % (Manual) 87 H, Lymphocytes % (Manual) 7 L, Monocytes % (Manual) 4, Eosinophils % (Manual) 2, Platelet Estimate Normal, RBC Morphology Not Reportable, Hypochromasia 3+, Microcytosis 2+ 09/16/21 13:50: PT 11.8, INR 1.05, APTT 21.1 L 09/16/21 13:50: D-Dimer 0.95 H 09/16/21 13:50: Troponin I 0.03, NT-Pro-B Natriuret Pep 3860 H 09/16/21 13:50: Sodium 139, Potassium 4.1, Chloride 104, Carbon Dioxide 23, Anion Gap 16.1 H, BUN 31 H, Creatinine 1.60 H, Estimated Creat Clear 56, Estimated GFR 42 L, Est GFR ( Amer) 51 L, Glucose 201 H, Calcium 8.3 L 09/16/21 13:50: Total Bilirubin 0.9, Direct Bilirubin 0.5 H, Conjugated Bilirubin 0.0, Indirect Bilirubin 0.4, Unconjugated Bilirubin 0.4, AST 44, ALT 25, Alkaline Phosphatase 117, Total Protein 6.9, Albumin 3.9 09/16/21 14:40: SARS-CoV-2 (PCR) Not detected, Influenza A Untype (PCR) Not detected, Influenza Type B (PCR) Not detected 09/16/21 15:15: Blood Type A Positive, Antibody Screen Negative, Crossmatch (AHG) See Detail 09/16/21 16:40: Troponin I 0.06 H 09/16/21 19:40: Troponin I 0.12 H 09/17/21 00:43: Urine Color Yellow, Urine Appearance Clear, Urine pH 6.0, Ur Specific [place] 1.010, Urine Protein Negative, Urine Glucose (UA) Negative, Urine Ketones Negative, Urine Blood Trace-i, Urine Nitrate Negative, Urine Bilirubin Negative, Urine Urobilinogen 0.2, Ur Leukocyte Esterase Negative, Urine RBC Occasional, Urine Bacteria Trace 09/17/21 04:10: Troponin I 0.33 H, NT-Pro-B Natriuret Pep 6050 H 09/17/21 04:10: WBC 13.4 H, RBC 4.08 L, Hgb 8.3 L D, Hct 28.9 L, MCV 70.8 L, MCH 20.6 L, MCHC 29.1 L, RDW 19.0 H, Plt Count 320, MPV 7.3 L, Neut % (Auto) 81.8 H, Lymph % (Auto) 8.2 L, [place] % (Auto) 8.2, Eos % (Auto) 1.5, Baso % (Auto) 0.3, Neut # (Auto) 11.0 H, Lymph # (Auto) 1.1, [place] # (Auto) 1.1 H, Eos # (Auto) 0.2, Baso # (Auto) 0.0 09/17/21 04:10: Sodium 139, Potassium 3.5, Chloride 106, Carbon Dioxide 26, Anion Gap 10.5, BUN 29 H, Creatinine 1.50 H, Estimated Creat Clear 62, Estimated GFR 45 L, Est GFR ( Amer) 55 L, Glucose 48 L D, Calcium 7.9 L 09/17/21 04:50: POC Glucose 65 L 09/17/21 05:26: POC Glucose 89 09/17/21 06:51: POC Glucose 216 H 09/17/21 09:25: Stool Occult Blood Positive A I & O for Last 24 hours: Intake & Output 09/14/21 09/15/21 09/16/21 09/17/21 23:59 23:59 23:59 23:59 Intake Total 0 / 0 0 / 0 Output Total 2250 / 2250 Balance 0 / -1200 -2250 / -2250 Weight 240 lb 8 oz 238 lb 1.588 oz Progress Note: A&P (1) Acute exacerbation of chronic obstructive airways disease Status: Acute (2) Elevated brain natriuretic peptide (BNP) level Status: Acute (3) Anemia Status: Acute 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
[2021-09-17 11:16] LABS: Basophils % 0.3 % (0.1-2.0); Eosinophils # 0.2 K/mm3 (0.0-0.4); Eosinophils % 1.3 % (0.1-12.0); Hematocrit 28.4 % (42.0-52.0); Hemoglobin 8.1 g/dL (14.1-18.0); Lymphocytes # 1.1 K/mm3 (0.7-4.5); Lymphocytes % 8.4 % (10-50); Mean Corpuscular HGB Conc 28.5 g/dL (31.8-35.4); Mean Corpuscular Hemoglobin 20.6 pg (27.0-31.2); Mean Platelet Volume 7.8 fl (7.4-10.4); Monocytes # 0.7 K/mm3 (0.1-1.0); Monocytes % 5.5 % (1.7-9.3); Neutrophils # 11.1 K/mm3 (1.8-7.8); Neutrophils % 84.5 % (37.0-80.0); Platelet Count 325 K/mm3 (142-424); Red Blood Count 3.94 M/mm3 (4.60-6.20); White Blood Count 13.2 K/mm3 (4.8-10.8)
[2021-09-17 11:50] LABS: POC Glucose,Bedside 352 (70-110)
[2021-09-17 11:55] LABS: Hypochromasia 3+; Lymphocytes % 7 % (10-50); Microcytosis 1+; Monocytes % 3 % (2-9); Neutrophils % 89 % (42-76); Platelet Estimate Normal; Total Cells Counted 100
--- NOTE | 2021-09-17 12:57 | HMH.PULMCON ---
*Admission Date: 09/17/21 *Reason for consult:: Acute on chronic hypoxic respiratory failure *History of present illness: Mr. Cloud is a 81-year-old male history of COPD, heart failure presented to the hospital with worsening respiratory distress and pulmonary was called for further management. He also admits cough with worsening productive phlegm and worsening lower extremity swelling. [facility] History Medical History: Reports:: Arrhythmia, Atrial Fibrillation, Cancer, Congestive Heart Failure, Chronic Obstructive Pulmonary Disease (COPD), Congenital Heart Disease, Coronary Artery Disease, Diabetes Mellitus Type 2, Gastroesophageal Reflux Disease(GERD), Gastrointestinal Bleed, Home Oxygen, Hyperlipidemia, Hypertension, Lung Disease, Kidney Stones, Myocardial Infarction, Renal Insufficiency Denies:: Diabetes Mellitus Type 1, Internal Pacemaker, MRSA, Seizures *Have you ever received a pneumonia vaccine?: Yes *Have you received a flu vaccine this season?: Yes Other Medical History: Reports: Anemia, Arthritis, Other Other Surgeries: Yes: No Previous Surgery, Angiogram, Angioplasty, CABG, Cancer Surgery, Cardiac Catheterization, Cardiac Surgery, Colonoscopy, Coronary Stent, EGD, Hernia Repair, Other. No: Pacemaker Amputation: No Fractures: No - *Social History Smoking Status: Former smoker Tobacco Type: cigarettes # Packs/Day (cigarettes): 1 Alcohol Intake: never Alcohol Intake Frequency:: other Substance Use Type: denies use *Occupational Status:: retired Housing: house Household Members: spouse *Travel in the last 8 weeks: None Family Hx:: Anemia, Coronary Artery Disease, Diabetes, Heart Attack, Hyperlipidemia, Hypertension, Stroke ROS - Cons Reports anorexia, Reports fatigue, Denies fever(s) - Eyes Denies change in vision - ENT Denies nasal discharge, Denies nasal obstruction - Card Reports shortness of breath, Reports shortness of breath with activity, Reports leg swelling - Resp Respiratory: Reports chest congestion, Reports cough, Reports dyspnea, Reports dyspnea on exertion, Reports excessive phlegm production, Denies coughing up blood, Denies pain on inspiration, Denies pain with cough, Reports cough with sputum production - GI Gastrointestingal: Denies: abdominal pain - Psych Denies thoughts of hurting/killing others, Denies thoughts of hurting/killing yourself Meds Home Medications Medication Instructions Recorded Confirmed Type Albuterol Sulfate [Albuterol 1 puff INHALATION NEEDED PRN 09/17/21 09/17/21 History Sulfate Hfa] Clopidogrel Bisulfate [Clopidogrel 75 mg PO DAILY 09/17/21 09/17/21 History 75mg Tab] Gabapentin 300 mg PO BID 09/17/21 09/17/21 History Ipratropium [place] [Atrovent 0.5 mg INHALATION NEEDED PRN 09/17/21 09/17/21 History 0.5mg/2.5mL neb] Isosorbide Mononitrate [Isosorbide 60 mg PO DAILY 09/17/21 09/17/21 History Mononitrate ER] Metoprolol Tartrate [Lopressor 25 mg PO BID 09/17/21 09/17/21 History 25mg tablet] NIFEdipine [Procardia Xl] 30 mg PO DAILY 09/17/21 09/17/21 History Rosuvastatin Calcium 40 mg PO HS 09/17/21 09/17/21 History Tiotropium Br/Olodaterol HCl 2 puffs IH DAILY 09/17/21 09/17/21 History [Stiolto Respimat Inhal [place]] Torsemide 20 mg PO BID 09/17/21 09/17/21 History gemfibroziL [Gemfibrozil] 600 mg PO BID 09/17/21 09/17/21 History Allergies Allergy/AdvReac Type Severity Reaction Status Date / Time oxycodone Allergy Intermediate I-RASH Verified 08/26/21 14:19 Sulfa (Sulfonamide Allergy Unknown Verified 08/26/21 14:19 Antibiotics) Exam - Constitutional Constitutional:: Present: no acute distress, comfortable - [facility] Exam HENWI: Present: normocephalic, atraumatic - Eye Exam Eyes:: Present: normal appearance both eyes and related structures - Neck Exam Neck:: Present: normal visual inspection - Respiratory Exam Respiratory:: Present: able to speak in complete sentences, normal respiratory effort, crackles,
--- NOTE | 2021-09-17 13:20 | HMH.CNCARD ---
History of Present Illness Consult date: 09/17/21 Requesting physician: Andres Valencia Consult reason: chest pain, congestive heart failure, shortness of breath Chief complaint: SOA History of present illness: This is a 81-year-old white gentleman who presented here to the emergency department complaints of chest pain and shortness of breath over the last couple days. The patient states that he has been having sharp pain across his entire chest. He states that this radiates to his back. It is associated with profound shortness of breath and diaphoresis. He denies any nausea or vomiting. The patient states that he is also been having a weight gain over the last several days. He states that he is being compliant with his medications however he has historically been noncompliant with his fluid restrictions. The patient states that his shortness of breath was significantly worsened with exertion. He states that he felt as if he were going to smother and because he was so short of breath. He states that this is worse with exertion and improves with rest. He states his chest pain has resolved at this time. Upon arrival to the emergency department he was found to have a hemoglobin of 6.5 and was transfused with 1 unit of packed red blood cells. His hemoglobin is now up to 8.3. He has chronic kidney disease with a creatinine of 1.5 which is stable for him. He did have an elevated troponin with a troponin max of 0.33. [facility] History I have reviewed the patient's past medical history: Yes Medical History: Reports:: Arrhythmia, Atrial Fibrillation, Cancer, Congestive Heart Failure, Chronic Obstructive Pulmonary Disease (COPD), Congenital Heart Disease, Coronary Artery Disease, Diabetes Mellitus Type 2, Gastroesophageal Reflux Disease(GERD), Gastrointestinal Bleed, Home Oxygen, Hyperlipidemia, Hypertension, Lung Disease, Kidney Stones, Myocardial Infarction, Renal Insufficiency Denies:: Diabetes Mellitus Type 1, Internal Pacemaker, MRSA, Seizures *Have you ever received a pneumonia vaccine?: Yes *Have you received a flu vaccine this season?: Yes Other Medical History: Reports: Anemia, Arthritis, Other Other Surgeries: Yes: No Previous Surgery, Angiogram, Angioplasty, CABG, Cancer Surgery, Cardiac Catheterization, Cardiac Surgery, Colonoscopy, Coronary Stent, EGD, Hernia Repair, Other. No: Pacemaker Amputation: No Fractures: No - *Social History Smoking Status: Former smoker Tobacco Type: cigarettes # Packs/Day (cigarettes): 1 Alcohol Intake: never Alcohol Intake Frequency:: other Substance Use Type: denies use *Occupational Status:: retired Housing: house Household Members: spouse *Travel in the last 8 weeks: None Family Hx:: Anemia, Coronary Artery Disease, Diabetes, Heart Attack, Hyperlipidemia, Hypertension, Stroke Meds Home Medications Medication Instructions Recorded Confirmed Type Albuterol Sulfate [Albuterol 1 puff INHALATION NEEDED PRN 09/17/21 09/17/21 History Sulfate Hfa] Clopidogrel Bisulfate [Clopidogrel 75 mg PO DAILY 09/17/21 09/17/21 History 75mg Tab] Gabapentin 300 mg PO BID 09/17/21 09/17/21 History Ipratropium [place] [Atrovent 0.5 mg INHALATION NEEDED PRN 09/17/21 09/17/21 History 0.5mg/2.5mL neb] Isosorbide Mononitrate [Isosorbide 60 mg PO DAILY 09/17/21 09/17/21 History Mononitrate ER] Metoprolol Tartrate [Lopressor 25 mg PO BID 09/17/21 09/17/21 History 25mg tablet] NIFEdipine [Procardia Xl] 30 mg PO DAILY 09/17/21 09/17/21 History Rosuvastatin Calcium 40 mg PO HS 09/17/21 09/17/21 History Tiotropium Br/Olodaterol HCl 2 puffs IH DAILY 09/17/21 09/17/21 History [Stiolto Respimat Inhal [place]] Torsemide 20 mg PO BID 09/17/21 09/17/21 History gemfibroziL [Gemfibrozil] 600 mg PO BID 09/17/21 09/17/21 History Allergies Allergy/AdvReac Type Severity Reaction Status Date / Time oxycodone Allergy Intermediate I-RASH Verified 08/26/21 14:19 Sulfa (Sulfonamide Allergy Unknown Verified
--- NOTE | 2021-09-17 17:40 | PC.NURSE ---
Addendum entered by Booker Aly RN 09/17/21 17:41: it was given at this time,1740. Original Note: Checked pt's sugar and it was 451, rechecked and it was 462. Dr. Valencia notified and ordered an additional 15 units of ssi.
--- NOTE | 2021-09-17 19:02 | PC.NURSE ---
Pt remains on 10 L NC at this time.
[2021-09-17 21:49] LABS: Glucose,Random 486 mg/dL (74-100)
[2021-09-17 22:11] LABS: POC Glucose,Bedside 572 (70-110)
[2021-09-18] VITALS (24 sets, daily range): BP systolic 116–200; BP diastolic 34–107; PULSE 64–101; RESP 18–24; TEMP 36.4–37.1; O2SAT 92–98; BMI 35.4
--- NOTE | 2021-09-18 00:08 | PC.NURSE ---
2100 fsbs 572, lab called to obtain blood draw per protocol, dr gutierrez called to inform of fsbs 572 pending blood draw, dr gutierrez stated to give pt 30 units now of humalog insulin, repeated and verified with dr gutierrez. will continue to monitor.
[2021-09-18 01:02] LABS: POC Glucose,Bedside 440 (70-110)
[2021-09-18 01:02] LABS: POC Glucose,Bedside 431 (70-110)
--- NOTE | 2021-09-18 05:24 | PC.NURSE ---
fsbs still at 440; dr gutierrez called with results and note new order for 15unit of humalong insulin to be given now, repeated and verified.
[2021-09-18 06:27] LABS: POC Glucose,Bedside 315 (70-110)
[2021-09-18 06:35] LABS: Chloride 100 mmol/L (98-107)
[2021-09-18 06:36] LABS: Potassium 3.9 mmoL/L (3.5-5.1); Sodium 133 mmol/L (136-145)
[2021-09-18 06:38] LABS: Blood Urea Nitrogen 38 mg/dl (9-20); Creatinine Clearance Estimated 48 mL/min (50-200); Estimated Glomerular Filt Rate 37 ml/min (>60); GFR (African American) 44 ML/MIN (>60)
[2021-09-18 06:39] LABS: Anion Gap 6.9 mEq/L (5-15); Calcium 7.8 mg/dl (8.4-10.2); Carbon Dioxide 30 mmol/L (22.0-30.0); Cholesterol 103 mg/dl (140-200); Glucose 241 mg/dl (74-100); HDL Cholesterol 26 mg/dl (40-60); Triglycerides 143 mg/dl (30-150); VLDL Cholesterol 29 mg/dL (0-40)
[2021-09-18 06:46] LABS: Basophils % 0.1 % (0.1-2.0); Eosinophils % 0.1 % (0.1-12.0); Lymphocytes % 9.5 % (10-50); Mean Corpuscular HGB Conc 28.8 g/dL (31.8-35.4); Mean Corpuscular Hemoglobin 20.6 pg (27.0-31.2); Mean Corpuscular Volume 71.5 fl (80-94); Monocytes # 0.6 K/mm3 (0.1-1.0); Monocytes % 6.2 % (1.7-9.3); Neutrophils # 8.7 K/mm3 (1.8-7.8); Neutrophils % 84.2 % (37.0-80.0); Platelet Count 294 K/mm3 (142-424); Red Cell Distribution Width 19.6 % (11.5-17.5); White Blood Count 10.4 K/mm3 (4.8-10.8)
[2021-09-18 06:53] LABS: Hemoglobin 7.2 g/dL (14.1-18.0)
[2021-09-18 06:55] LABS: Direct LDL Cholesterol 50.84 mg/dL (100-129)
--- NOTE | 2021-09-18 07:03 | NM_ITS ---
FINAL REPORT CLINICAL HISTORY: acute on chronic GI blood loss11:20am 23.8mci tc sodium pertechnetate mixed with ultra tag inj into lt ant FINDINGS: Sequential anterior projection images of the abdomen and pelvis were obtained after radio labeling red blood cells with 23.8 mCi technetium 99 M pertechnetate. On the images of the first 60 minutes, no definite abnormal tracer activity is seen to suggest acute bleed. On the 4 and 6 hour delayed images, there is tracer accumulation in the left lateral abdomen that likely localizes to the descending colon and is worrisome for an area of bleeding. IMPRESSION: Increased tracer activity in the left lateral abdomen on the 4 and 6 hour delayed images worrisome for an area of bleeding in the descending colon. Authenticated by Marco Antonio Griffiths III, MD on 09/18/2021 05:50:37 PM [facility]
--- NOTE | 2021-09-18 07:41 | HMH.GSPN ---
Subjective Narrative: He states he is breathing just a little bit better this morning . Progress Note: A&P (1) Acute exacerbation of chronic obstructive airways disease Status: Acute (2) Elevated brain natriuretic peptide (BNP) level Status: Acute (3) Anemia Status: Acute Assessment and plan: Evaluation over the past few years has been complicated significantly by patient's lack of compliance (and/or interest). He is willing to consider repeat endoscopy as an outpatient when he feels better and is breathing better . He remains uninterested in UGI/SBFT followed by capsule endoscopy. He is willing to undergo tagged red blood cell scan (ordered). Continue serial hemoglobin/hematocrit as per primary service Transfuse as needed Follow-up results of tagged red blood cell scan EGD and colonoscopy (with extended prep) as an outpatient when deemed appropriate from a medical standpoint and when patient willing 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 Exam Vital signs and Labs for Last 24 Hours: Temp Pulse Resp BP Pulse Ox 98.7 F 82 18 121/37 L 95 09/18/21 00:00 09/18/21 06:38 09/18/21 00:00 09/18/21 00:00 09/18/21 06:38 Laboratory Results - last 24 hr 09/17/21 09:25: Stool Occult Blood Positive A 09/17/21 11:05: WBC 13.2 H, RBC 3.94 L, Hgb 8.1 L, Hct 28.4 L, MCV 72.0 L, MCH 20.6 L, MCHC 28.5 L, RDW 19.0 H, Plt Count 325, MPV 7.8, Neut % (Auto) 84.5 H, Lymph % (Auto) 8.4 L, [place] % (Auto) 5.5, Eos % (Auto) 1.3, Baso % (Auto) 0.3, Neut # (Auto) 11.1 H, Lymph # (Auto) 1.1, [place] # (Auto) 0.7, Eos # (Auto) 0.2, Baso # (Auto) 0.0, Total Counted 100, Neutrophils % (Manual) 89 H, Band Neutrophils % 1.0, Lymphocytes % (Manual) 7 L, Monocytes % (Manual) 3, Platelet Estimate Normal, Hypochromasia 3+, Microcytosis 1+ 09/17/21 11:37: POC Glucose 352 H* 09/17/21 21:07: POC Glucose 572 H* 09/17/21 21:20: Random Glucose 486 H* 09/18/21 00:15: POC Glucose 431 H* 09/18/21 00:50: POC Glucose 440 H* 09/18/21 05:56: WBC 10.4, RBC 3.50 L, Hgb 7.2 L D, Hct 25.0 L, MCV 71.5 L, MCH 20.6 L, MCHC 28.8 L, RDW 19.6 H, Plt Count 294, MPV 7.0 L, Neut % (Auto) 84.2 H, Lymph % (Auto) 9.5 L, [place] % (Auto) 6.2, Eos % (Auto) 0.1, Baso % (Auto) 0.1, Neut # (Auto) 8.7 H, Lymph # (Auto) 1.0, [place] # (Auto) 0.6, Eos # (Auto) 0.0, Baso # (Auto) 0.0 09/18/21 05:56: Sodium 133 L, Potassium 3.9, Chloride 100, Carbon Dioxide 30, Anion Gap 6.9, BUN 38 H D, Creatinine 1.80 H, Estimated Creat Clear 48, Estimated GFR 37 L, Est GFR ( Amer) 44 L, Glucose 241 H, Calcium 7.8 L, Triglycerides 143, Cholesterol 103 L, LDL Cholesterol Direct 50.84 L, VLDL Cholesterol 29, HDL Cholesterol 26 L, Cholesterol/HDL Ratio 4.0 H 09/18/21 06:14: POC Glucose 315 H* I & O for Last 24 hours: Intake & Output 09/15/21 09/16/21 09/17/21 09/18/21 11:59 11:59 11:59 11:59 Intake Total 0 / 0 640 / 640 Output Total 2250 / 2250 1999 / 1999 Balance -2250 / -2250 -1360 / -1360 Weight 238 lb 1.588 oz 225 lb 14.4 oz - Constitutional no acute distress Comments: Appears somewhat more comfortable - *Routine Cardiovascular Exam Absent: tachycardia
--- NOTE | 2021-09-18 08:35 | XR_ITS ---
FINAL REPORT CLINICAL HISTORY: cough, low o2 COMPARISON: September 16, 2021 FINDINGS: The heart size is enlarged. There has been prior median sternotomy. There is mild pulmonary vascular congestion, stable. There is persistent right lung base atelectasis or pneumonia. There is no pleural effusion. There is no pneumothorax. IMPRESSION: Persistent right lung base atelectasis or pneumonia. Reviewed, Interpreted and Dictated by Marco Antonio Griffiths III, MD Transcribed by Yeimi Mayer Authenticated by Marco Antonio Griffiths III, MD on 09/18/2021 09:16:30 AM [facility]
--- NOTE | 2021-09-18 08:37 | HMH.ACPN2 ---
Internal Medicine - PN: Subj *Date: 09/18/21 *Time: 08:00 Interval history: pt coughing, soa, Exam Vital signs and Labs for Last 24 Hours: Temp Pulse Resp BP Pulse Ox 97.8 F 88 20 154/34 H 98 09/18/21 07:51 09/18/21 07:51 09/18/21 07:51 09/18/21 07:51 09/18/21 07:51 Laboratory Results - last 24 hr 09/16/21 15:15: Crossmatch (AHG) See Detail 09/17/21 09:25: Stool Occult Blood Positive A 09/17/21 11:05: WBC 13.2 H, RBC 3.94 L, Hgb 8.1 L, Hct 28.4 L, MCV 72.0 L, MCH 20.6 L, MCHC 28.5 L, RDW 19.0 H, Plt Count 325, MPV 7.8, Neut % (Auto) 84.5 H, Lymph % (Auto) 8.4 L, [place] % (Auto) 5.5, Eos % (Auto) 1.3, Baso % (Auto) 0.3, Neut # (Auto) 11.1 H, Lymph # (Auto) 1.1, [place] # (Auto) 0.7, Eos # (Auto) 0.2, Baso # (Auto) 0.0, Total Counted 100, Neutrophils % (Manual) 89 H, Band Neutrophils % 1.0, Lymphocytes % (Manual) 7 L, Monocytes % (Manual) 3, Platelet Estimate Normal, Hypochromasia 3+, Microcytosis 1+ 09/17/21 11:37: POC Glucose 352 H* 09/17/21 21:07: POC Glucose 572 H* 09/17/21 21:20: Random Glucose 486 H* 09/18/21 00:15: POC Glucose 431 H* 09/18/21 00:50: POC Glucose 440 H* 09/18/21 05:56: WBC 10.4, RBC 3.50 L, Hgb 7.2 L D, Hct 25.0 L, MCV 71.5 L, MCH 20.6 L, MCHC 28.8 L, RDW 19.6 H, Plt Count 294, MPV 7.0 L, Neut % (Auto) 84.2 H, Lymph % (Auto) 9.5 L, [place] % (Auto) 6.2, Eos % (Auto) 0.1, Baso % (Auto) 0.1, Neut # (Auto) 8.7 H, Lymph # (Auto) 1.0, [place] # (Auto) 0.6, Eos # (Auto) 0.0, Baso # (Auto) 0.0 09/18/21 05:56: Sodium 133 L, Potassium 3.9, Chloride 100, Carbon Dioxide 30, Anion Gap 6.9, BUN 38 H D, Creatinine 1.80 H, Estimated Creat Clear 48, Estimated GFR 37 L, Est GFR ( Amer) 44 L, Glucose 241 H, Calcium 7.8 L, Triglycerides 143, Cholesterol 103 L, LDL Cholesterol Direct 50.84 L, VLDL Cholesterol 29, HDL Cholesterol 26 L, Cholesterol/HDL Ratio 4.0 H 09/18/21 06:14: POC Glucose 315 H* I & O for Last 24 hours: Intake & Output 09/15/21 09/16/21 09/17/21 09/18/21 11:59 11:59 11:59 11:59 Intake Total 0 / 0 1000 / 1000 Output Total 2250 / 2250 2650 / 2650 Balance -2250 / -2250 -1650 / -1650 Weight 238 lb 1.588 oz 225 lb 14.4 oz - Constitutional no acute distress, obese, chronically ill appearing - *Routine HEENT Exam Head: Present: normocephalic Eye: Present: PERRL ENT: Present: mucous membranes moist - *Routine Neck Exam Present: supple. Absent: lymphadenopathy - *Routine Respiratory Exam Present: decreased breath sounds, crackles - *Routine Cardiovascular Exam Present: RRR - *Routine Abdominal Exam Present: soft, normoactive bowel sounds. Absent: tenderness - *Routine Extremities Exam Present: normal capillary refill. Absent: cyanosis, clubbing, edema - *Routine Skin Exam Present: warm. Absent: rash - *Routine Neurological Exam Present: alert, oriented X3 Assessment and Plan (1) Acute exacerbation of chronic obstructive airways disease Status: Acute Category: Medical Code(s): J44.1 - Chronic obstructive pulmonary disease with (acute) exacerbation (2) Elevated brain natriuretic peptide (BNP) level Status: Acute Category: Medical Code(s): R79.89 - Other specified abnormal findings of blood chemistry (3) Anemia Status: Acute Qualifiers: Anemia type: unspecified type Qualified Code(s): D64.9 - Anemia, unspecified Category: Medical Code(s): D64.9 - Anemia, unspecified (4) Heart failure Status: Acute Qualifiers: Heart failure type: unspecified Heart failure chronicity: acute on chronic Qualified Code(s): I50.9 - Heart failure, unspecified Category: Medical Code(s): I50.9 - Heart failure, unspecified (5) Congestive heart failure Status: Chronic Qualifiers: Heart failure type: diastolic Heart failure chronicity: chronic Qualified Code(s): I50.32 - Chronic diastolic (congestive) heart failure Category: Medical Code(s): I50.9 - Heart failure, unspecified (6) Shortness of breath Status: Acute Ca
[2021-09-18 08:57] LABS: Adenovirus,PCR Not Detected (NotDetected); Bordetella Pertussis Not Detected (NotDetected); Chlamydophila Pneumoniae, PCR Not Detected (NotDetected); Coronavirus 229E Not Detected (NotDetected); Coronavirus NL63 Not Detected (NotDetected); Coronavirus OC43 Not Detected (NotDetected); Coronovirus HKU1,PCR Not Detected (NotDetected); Human Metapneumovirus Not Detected (NotDetected); Influenza A, PCR Not Detected (NotDetected); Influenza AH1, 2009 Not Detected (NotDetected); Influenza AH1, PCR Not Detected (NotDetected); Influenza AH3,PCR Not Detected (NotDetected); Influenza B, PCR Not Detected (NotDetected); Mycoplasma Pneumoniae, PCR Not Detected (NotDetected); Parainfluenza 1, PCR Not Detected (NotDetected); Parainfluenza 2, PCR Not Detected (NotDetected); Parainfluenza 3, PCR Not Detected (NotDetected); Parainfluenza 4, PCR Not Detected (NotDetected); Respiratory Syncytial Virus Not Detected (NotDetected); Rhinovirus/Enterovirus Not Detected (NotDetected)
[2021-09-18 09:01] LABS: NT Pro Brain Natriuretic Pep. 5130 pg/mL (0-450)
--- NOTE | 2021-09-18 09:05 | HMH.PULMPN ---
Internal Medicine - PN: Subj *Date: 09/18/21 *Time: 10:24 Interval history: No acute respiratory events overnight. Exam - Constitutional Constitutional:: Present: no acute distress, comfortable - HENMT Exam HENMT: Present: normocephalic, atraumatic - Eye Exam Eyes:: Present: normal appearance both eyes and related structures - Neck Exam Neck:: Present: normal visual inspection - Respiratory Exam Respiratory:: Present: able to speak in complete sentences, respiratory distress, crackles, wheezing - Cardiovascular Exam Cardiac:: Present: S1, S2 - GI Exam GI:: Present: soft, obese - Skin Exam Skin: Present: warm, no rash - Neurological Exam Neurological: Present: alert, awake, normal cognition - Extremities Exam Extremities: Present: no cyanosis, no clubbing, no edema Assessment and Plan (1) Acute exacerbation of chronic obstructive airways disease Status: Acute Category: Medical Code(s): J44.1 - Chronic obstructive pulmonary disease with (acute) exacerbation (2) Elevated brain natriuretic peptide (BNP) level Status: Acute Category: Medical Code(s): R79.89 - Other specified abnormal findings of blood chemistry (3) Anemia Status: Acute Qualifiers: Anemia type: unspecified type Qualified Code(s): D64.9 - Anemia, unspecified Category: Medical Code(s): D64.9 - Anemia, unspecified (4) Heart failure Status: Acute Qualifiers: Heart failure type: unspecified Heart failure chronicity: acute on chronic Qualified Code(s): I50.9 - Heart failure, unspecified Category: Medical Code(s): I50.9 - Heart failure, unspecified (5) Congestive heart failure Status: Chronic Qualifiers: Heart failure type: diastolic Heart failure chronicity: chronic Qualified Code(s): I50.32 - Chronic diastolic (congestive) heart failure Category: Medical Code(s): I50.9 - Heart failure, unspecified (6) Shortness of breath Status: Acute Category: Medical Code(s): R06.02 - Shortness of breath (7) Class 2 obesity with body mass index (BMI) of 38.0 to 38.9 in adult Status: Acute Qualifiers: Obesity type: due to excess calories Serious obesity comorbidity presence: with serious comorbidity Qualified Code(s): E66.01 - Morbid (severe) obesity due to excess calories; Z68.38 - Body mass index [BMI] 38.0-38.9, adult Category: Medical Code(s): E66.9 - Obesity, unspecified; Z68.38 - Body mass index [BMI] 38.0-38.9, adult (8) Diastolic CHF Status: Chronic Qualifiers: Heart failure chronicity: chronic Qualified Code(s): I50.32 - Chronic diastolic (congestive) heart failure Category: Medical Code(s): I50.30 - Unspecified diastolic (congestive) heart failure (9) IDDM (insulin dependent diabetes mellitus) Status: Chronic Category: Medical Code(s): E11.9 - Type 2 diabetes mellitus without complications; Z79.4 - alf (current) 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 - Assessment and plan all Dx Assessment and Plan for all problems:: #Acute on chronic hypoxic respiratory failure: #COPD exacerbation: 81-year-old greater than [id number] smoking record with diagnosis of COPD. Noncompliant with inhalers at baseline. Presented hospital worsening respiratory distress. CTA on admission did not show any evidence of pulmonary embolism, did not show any dense airspace disease. Showed evidence of volume overload and faint groundglass opacities. Flu and COVID-19 PCR negative. Evidence of leukocytosis noted with WBC 13.9. Not a significant anemia on admission, improved. Also noted to have ERMA on CKD. Etiology of this patient current acute on chronic hypoxic respiratory failure appears to be a combination of COPD exacerbation and volume overload. Cardiology following patient receiving diuretics since admission. Interval update: Respiratory status remained stable. Continue to receive diuresis. Creatinine slightly worsened. Chest x-ray continues to show bilateral lower lobe
--- NOTE | 2021-09-18 10:16 | DIET.NUTRFU ---
SANG rounded with provider today, Patients has had elevated BS during admit as high as 400's often. Currently receiving ss. insulin during day and they plan to add lantus at night to help. SANG spoke to patient yesterday about diet recommendations for diabetes and cardiac condition and he is non-complaint and does not plan on making diet changes. He claims if it does not have salt or sugar it is no good.
--- NOTE | 2021-09-18 14:11 | PC.NURSE ---
Pt was in nuclear medicine when lab called stating the blood units were ready. When pt arrived back to the floor, this RN was notified that pt will be going back down to radiology @ 1520. Due to pt being here for CHF and having to run blood transfusion at a slower rate, this RN has not began blood transfusion since it will not be completed by the time pt needs to go back down.
[2021-09-18 14:15] LABS: ABG Base Excess 0.3 mmol/L (-2.4-2.3); ABG HCO3 23.8 mmhg (22.0-26.0); ABG Oxygen Saturation 95 % (90-100); ABG PCO2 32.4 mmhg (35.0-45.0); ABG PH 7.48 mmol/L (7.35-7.45); ABG PO2 72.9 mmhg (80-100); ABG TCO2 24.7 mmhg (23-27)
[2021-09-18 14:18] LABS: Allen's Test Acceptable; Oxygen 7L %; Source Left Radial
--- NOTE | 2021-09-18 15:59 | HMH.PNCARD ---
Subjective Date: 09/18/21 Time: 15:59 Principal diagnosis: CHF, Anemia Interval history: 81-year-old white male in bed in no acute distress. He does appear pale in appearance compared to his normal. His breathing has improved although he is still exhibiting some conversational dyspnea. The red cell tagged study is ongoing with results pending at this time. Echocardiogram shows ejection fraction of 50% with grade 2 diastolic dysfunction and elevated RVSP of 63 mmHg. Exam Vital signs and Labs for Last 24 Hours: Temp Pulse Resp BP Pulse Ox 97.8 F 100 H 20 154/34 H 98 09/18/21 07:51 09/18/21 08:00 09/18/21 07:51 09/18/21 07:51 09/18/21 07:51 Laboratory Results - last 24 hr 09/16/21 15:15: Blood Type A Positive, Antibody Screen Negative, Crossmatch (AHG) See Detail 09/17/21 21:07: POC Glucose 572 H* 09/17/21 21:20: Random Glucose 486 H* 09/18/21 00:15: POC Glucose 431 H* 09/18/21 00:50: POC Glucose 440 H* 09/18/21 05:56: WBC 10.4, RBC 3.50 L, Hgb 7.2 L D, Hct 25.0 L, MCV 71.5 L, MCH 20.6 L, MCHC 28.8 L, RDW 19.6 H, Plt Count 294, MPV 7.0 L, Neut % (Auto) 84.2 H, Lymph % (Auto) 9.5 L, [place] % (Auto) 6.2, Eos % (Auto) 0.1, Baso % (Auto) 0.1, Neut # (Auto) 8.7 H, Lymph # (Auto) 1.0, [place] # (Auto) 0.6, Eos # (Auto) 0.0, Baso # (Auto) 0.0 09/18/21 05:56: Sodium 133 L, Potassium 3.9, Chloride 100, Carbon Dioxide 30, Anion Gap 6.9, BUN 38 H D, Creatinine 1.80 H, Estimated Creat Clear 48, Estimated GFR 37 L, Est GFR ( Amer) 44 L, Glucose 241 H, Calcium 7.8 L, Triglycerides 143, Cholesterol 103 L, LDL Cholesterol Direct 50.84 L, VLDL Cholesterol 29, HDL Cholesterol 26 L, Cholesterol/HDL Ratio 4.0 H 09/18/21 05:56: NT-Pro-B Natriuret Pep 5130 H 09/18/21 06:14: POC Glucose 315 H* 09/18/21 08:51: Chlamy pneumoniae PCR Not detected, Adenovirus (PCR) Not detected, B. pertussis DNA (PCR) Not detected, Coronavirus OC43 (PCR) Not detected, Coronavirus HKU1 (PCR) Not detected, Coronavirus 229E (PCR) Not detected, Coronavirus NL63 (PCR) Not detected, Human Metapneumovir PCR Not detected, Influenza A (H1) PCR Not detected, Influ A (H1N1/09) PCR Not detected, Influenza A (H3) PCR Not detected, Influenza Type A (PCR) Not detected, Influenza Type B (PCR) Not detected, M. pneumoniae (PCR) Not detected, Parainfluenza 1 (PCR) Not detected, Parainfluenza 2 (PCR) Not detected, Parainfluenza 3 (PCR) Not detected, Parainfluenza 4 (PCR) Not detected, RSV (PCR) Not detected, Entero/Rhino (PCR) Not detected 09/18/21 10:29: Specimen Source Left radial, O2 % 7l, ABG pH 7.48 H, ABG pCO2 32.4 L, ABG pO2 72.9 L, ABG HCO3 23.8, ABG Total CO2 24.7, ABG O2 Saturation 95, ABG Base Excess 0.3, Massimo Test Acceptable I & O for Last 24 hours: Intake & Output 09/16/21 09/17/21 09/18/21 09/19/21 11:59 11:59 11:59 11:59 Intake Total 0 / 0 1000 / 1000 Output Total 2250 / 2250 2650 / 2650 Balance -2250 / -2250 -1650 / -1650 Weight 238 lb 1.588 oz 225 lb 14.4 oz - *Routine Respiratory Exam Present: decreased breath sounds, crackles - *Routine Cardiovascular Exam Present: RRR - *Routine Extremities Exam Present: edema. Absent: cyanosis, clubbing Progress Note: A&P (1) Acute exacerbation of chronic obstructive airways disease Status: Acute (2) Elevated brain natriuretic peptide (BNP) level Status: Acute (3) Anemia Status: Acute 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 Assessment and Plan for All Diagnoses:: 1. Acute on chronic exacerbation of diastolic congestive heart failure, continue IV Lasix. Will discontinue torsemide at this time. Continue until creatinine close to 3.0. 2. Hypertensive heart disease with grade 2 diastolic dysfunction. Contin
--- NOTE | 2021-09-18 16:26 | PC.NURSE ---
Pt FSBS for 1630 read HI per protocol, STAT random glucose ordered. Lab notified at this time.
[2021-09-18 17:21] LABS: Glucose,Random 634 mg/dL (74-100)
--- NOTE | 2021-09-18 18:07 | PC.NURSE ---
1720-critical glucose of 634 reported by Dale in lab. verified name nataliia and room number 1729- notified mD Brady, client relation specialist for MD Valencia. give 20 additional units + 20 units for SSI for a total of 40 units. orders received and carried out by this RN
--- NOTE | 2021-09-18 18:48 | PC.NURSE ---
Pt has done fine this shift. Pt currently on 8L NC w/ o2 sats >90%. 1st unit of PRBC's infusing at this time @ 125 mL/hr d/t pt hx of CHF. No blood transfusion reactions noted, VSS. Black[place] taken out this shift, clear light yellow urine noted in urinal. No other acute changes or complaints, will continue to monitor.
[2021-09-18 21:00] LABS: Glucose,Random 699 mg/dL (74-100)
[2021-09-19] VITALS (18 sets, daily range): BP systolic 131–164; BP diastolic 50–76; PULSE 60–100; RESP 19–24; TEMP 36.3–37.1; O2SAT 6–95; BMI 35.4
[2021-09-19 03:22] LABS: Hematocrit 30.4 % (42.0-52.0)
[2021-09-19 03:23] LABS: Hemoglobin 9.5 g/dL (14.1-18.0)
[2021-09-19 05:38] LABS: POC Glucose,Bedside 324 (70-110)
--- NOTE | 2021-09-19 05:39 | PC.NURSE ---
Patient received 2 units of blood this shift, tolerated well. Patient has had no c/o pain but reports he sometimes feels short of air. Patient has remained on 7L NC with o2 sats above 90%. Call de los santos in reach will continue to monitor.
--- NOTE | 2021-09-19 08:49 | HMH.ACPN2 ---
Internal Medicine - PN: Subj *Date: 09/20/21 *Time: 08:24 Interval history: doing better - has pending blood work - had bleeding scan yesterday - wears o2 at all times 3/4 liters Exam Vital signs and Labs for Last 24 Hours: Temp Pulse Resp BP Pulse Ox 97.4 F L 100 H 24 131/71 93 L 09/19/21 07:57 09/19/21 08:00 09/19/21 07:57 09/19/21 07:57 09/19/21 07:57 Laboratory Results - last 24 hr 09/16/21 15:15: Blood Type A Positive, Antibody Screen Negative, Crossmatch (AHG) See Detail 09/18/21 05:56: NT-Pro-B Natriuret Pep 5130 H 09/18/21 08:51: Chlamy pneumoniae PCR Not detected, Adenovirus (PCR) Not detected, B. pertussis DNA (PCR) Not detected, Coronavirus OC43 (PCR) Not detected, Coronavirus HKU1 (PCR) Not detected, Coronavirus 229E (PCR) Not detected, Coronavirus NL63 (PCR) Not detected, Human Metapneumovir PCR Not detected, Influenza A (H1) PCR Not detected, Influ A (H1N1/09) PCR Not detected, Influenza A (H3) PCR Not detected, Influenza Type A (PCR) Not detected, Influenza Type B (PCR) Not detected, M. pneumoniae (PCR) Not detected, Parainfluenza 1 (PCR) Not detected, Parainfluenza 2 (PCR) Not detected, Parainfluenza 3 (PCR) Not detected, Parainfluenza 4 (PCR) Not detected, RSV (PCR) Not detected, Entero/Rhino (PCR) Not detected 09/18/21 10:29: Specimen Source Left radial, O2 % 7l, ABG pH 7.48 H, ABG pCO2 32.4 L, ABG pO2 72.9 L, ABG HCO3 23.8, ABG Total CO2 24.7, ABG O2 Saturation 95, ABG Base Excess 0.3, Massimo Test Acceptable 09/18/21 16:40: Random Glucose 634 H* D 09/18/21 20:25: Random Glucose 699 H* 09/19/21 03:15: Hgb 9.5 L D, Hct 30.4 L 09/19/21 05:20: POC Glucose 324 H* I & O for Last 24 hours: Intake & Output 09/16/21 09/17/21 09/18/21 09/19/21 11:59 11:59 11:59 11:59 Intake Total 0 / 0 1000 / 1000 1100 / 1100 Output Total 2250 / 2250 2650 / 2650 2550 / 2550 Balance -2250 / -2250 -1650 / -1650 -1450 / -1450 Weight 238 lb 1.588 oz 225 lb 14.4 oz 226 lb 1.6 oz - Constitutional no acute distress, obese - *Routine HEENT Exam Head: Present: normocephalic Eye: Present: EOMI, PERRL, nystagmus ENT: Present: mucous membranes dry - *Routine Neck Exam Present: supple. Absent: JVD - *Routine Respiratory Exam Present: CTA bilaterally - *Routine Cardiovascular Exam Present: RRR, murmur - *Routine Abdominal Exam Present: soft - *Routine Extremities Exam Absent: calf tenderness - *Routine Skin Exam Present: intact - *Routine Neurological Exam Present: alert, CN II-XII intact - Routine Psychiatric Exam Present: normal affect Assessment and Plan (1) Acute exacerbation of chronic obstructive airways disease Status: Acute Category: Medical Code(s): J44.1 - Chronic obstructive pulmonary disease with (acute) exacerbation (2) Elevated brain natriuretic peptide (BNP) level Status: Acute Category: Medical Code(s): R79.89 - Other specified abnormal findings of blood chemistry (3) Anemia Status: Acute Qualifiers: Anemia type: unspecified type Qualified Code(s): D64.9 - Anemia, unspecified Category: Medical Code(s): D64.9 - Anemia, unspecified (4) Heart failure Status: Acute Qualifiers: Heart failure type: unspecified Heart failure chronicity: acute on chronic Qualified Code(s): I50.9 - Heart failure, unspecified Category: Medical Code(s): I50.9 - Heart failure, unspecified (5) Congestive heart failure Status: Chronic Qualifiers: Heart failure type: diastolic Heart failure chronicity: chronic Qualified Code(s): I50.32 - Chronic diastolic (congestive) heart failure Category: Medical Code(s): I50.9 - Heart failure, unspecified (6) Shortness of breath Status: Acute Category: Medical Code(s): R06.02 - Shortness of breath (7) Class 2 obesity with body mass index (BMI) of 38.0 to 38.9 in adult Status: Acute Qualifiers: Obesity type: due to excess calories Serious obesity comorbidity presence: with serious c
--- NOTE | 2021-09-19 09:27 | HMH.GSPN ---
Subjective Narrative: Patient states that he feels a bit better regarding his respiratory status. Denies any evidence of rectal bleeding or melena. Progress Note: A&P (1) Acute exacerbation of chronic obstructive airways disease Status: Acute (2) Elevated brain natriuretic peptide (BNP) level Status: Acute (3) Anemia Status: Acute 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 Assessment and Plan for All Diagnoses:: Tagged red blood cell bleeding scan revealed tracer in the left abdomen on delayed imaging possibly consistent with source in the descending colon. No clinical evidence of bleeding and patient has had an excellent response to transfusion 2 units most recently, total of 3 units during hospitalization. No need for urgent endoscopic procedures at this time. However, I would recommend likely pulido endoscopy once medically optimized if the patient is agreeable. Exam Vital signs and Labs for Last 24 Hours: Temp Pulse Resp BP Pulse Ox 97.4 F L 100 H 24 131/71 93 L 09/19/21 07:57 09/19/21 08:00 09/19/21 07:57 09/19/21 07:57 09/19/21 07:57 Laboratory Results - last 24 hr 09/16/21 15:15: Blood Type A Positive, Antibody Screen Negative, Crossmatch (AHG) See Detail 09/18/21 08:51: Chlamy pneumoniae PCR Not detected, Adenovirus (PCR) Not detected, B. pertussis DNA (PCR) Not detected, Coronavirus OC43 (PCR) Not detected, Coronavirus HKU1 (PCR) Not detected, Coronavirus 229E (PCR) Not detected, Coronavirus NL63 (PCR) Not detected, Human Metapneumovir PCR Not detected, Influenza A (H1) PCR Not detected, Influ A (H1N1/09) PCR Not detected, Influenza A (H3) PCR Not detected, Influenza Type A (PCR) Not detected, Influenza Type B (PCR) Not detected, M. pneumoniae (PCR) Not detected, Parainfluenza 1 (PCR) Not detected, Parainfluenza 2 (PCR) Not detected, Parainfluenza 3 (PCR) Not detected, Parainfluenza 4 (PCR) Not detected, RSV (PCR) Not detected, Entero/Rhino (PCR) Not detected 09/18/21 10:29: Specimen Source Left radial, O2 % 7l, ABG pH 7.48 H, ABG pCO2 32.4 L, ABG pO2 72.9 L, ABG HCO3 23.8, ABG Total CO2 24.7, ABG O2 Saturation 95, ABG Base Excess 0.3, Massimo Test Acceptable 09/18/21 16:40: Random Glucose 634 H* D 09/18/21 20:25: Random Glucose 699 H* 09/19/21 03:15: Hgb 9.5 L D, Hct 30.4 L 09/19/21 05:20: POC Glucose 324 H* I & O for Last 24 hours: Intake & Output 09/16/21 09/17/21 09/18/21 09/19/21 11:59 11:59 11:59 11:59 Intake Total 0 / 0 1000 / 1000 1100 / 1100 Output Total 2250 / 2250 2650 / 2650 2550 / 2550 Balance -2250 / -2250 -1650 / -1650 -1450 / -1450 Weight 238 lb 1.588 oz 225 lb 14.4 oz 226 lb 1.6 oz - Constitutional no acute distress
[2021-09-19 09:45] LABS: Basophils % 0.2 % (0.1-2.0); Eosinophils % 0.3 % (0.1-12.0); Hematocrit 34.3 % (42.0-52.0); Hemoglobin 10.2 g/dL (14.1-18.0); Lymphocytes # 1.4 K/mm3 (0.7-4.5); Lymphocytes % 10.7 % (10-50); Mean Corpuscular HGB Conc 29.6 g/dL (31.8-35.4); Mean Corpuscular Hemoglobin 22.9 pg (27.0-31.2); Mean Corpuscular Volume 77.2 fl (80-94); Mean Platelet Volume 7.3 fl (7.4-10.4); Monocytes # 0.6 K/mm3 (0.1-1.0); Monocytes % 4.2 % (1.7-9.3); Neutrophils # 11.3 K/mm3 (1.8-7.8); Neutrophils % 84.6 % (37.0-80.0); Platelet Count 336 K/mm3 (142-424); Red Blood Count 4.45 M/mm3 (4.60-6.20); Red Cell Distribution Width 19.4 % (11.5-17.5); White Blood Count 13.4 K/mm3 (4.8-10.8)
[2021-09-19 09:54] LABS: Blood Urea Nitrogen 50 mg/dl (9-20); Calcium 8.4 mg/dl (8.4-10.2); Carbon Dioxide 27 mmol/L (22.0-30.0); Chloride 96 mmol/L (98-107); Creatinine Clearance Estimated 48 mL/min (50-200); Estimated Glomerular Filt Rate 37 ml/min (>60); GFR (African American) 44 ML/MIN (>60); Sodium 137 mmol/L (136-145)
[2021-09-19 10:00] LABS: Glucose 427 mg/dl (74-100)
--- NOTE | 2021-09-19 11:17 | PC.NURSE ---
notified MD pringle fabs 465. New orders received
[2021-09-19 11:40] LABS: POC Glucose,Bedside 465 (70-110)
[2021-09-19 19:31] LABS: POC Glucose,Bedside 329 (70-110)
[2021-09-19 22:28] LABS: Glucose,Random 602 mg/dL (74-100)
--- NOTE | 2021-09-19 22:58 | PC.NURSE ---
Notified of stat glucose of 602. New orders received. Read back and verified with provider, verified with [facility] pharmacist.
[2021-09-20] VITALS (10 sets, daily range): BP systolic 134–162; BP diastolic 50–72; PULSE 64–90; RESP 17–21; TEMP 36.4–36.8; O2SAT 92–98; BMI 35.2
--- NOTE | 2021-09-20 07:03 | PC.NURSE ---
Pt A&O x 4. Pt had a high FSBS at beginning of shift, stat glucose ordered. Glucose 602. Dr. Brady called, new orders received and carried out by this RN. Pt is still on 6 L NC, O2 sat >90%. Pt is being monitored via continuos pulse ox and tele. BBB on tele. Pt is urinating clear, yellow urine via urinal with good urine output. Pt has slept majority of my shift. FSBS this AM was 185. No needs at voiced at this time. Call light in reach.
--- NOTE | 2021-09-20 08:44 | HMH.GSPN ---
Subjective Patient reports: no new complaints Narrative: No evidence of melena or hematochezia Progress Note: A&P (1) Acute exacerbation of chronic obstructive airways disease Status: Acute (2) Elevated brain natriuretic peptide (BNP) level Status: Acute (3) Anemia Status: Acute Assessment and plan: Hemoglobin actually increased yesterday evening to 10.2. No evidence of clinical bleeding at this time. May need panendoscopy in the near future. 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 Exam Vital signs and Labs for Last 24 Hours: Temp Pulse Resp BP Pulse Ox 97.5 F L 64 21 134/72 92 L 09/20/21 08:00 09/20/21 08:00 09/20/21 08:00 09/20/21 08:00 09/20/21 08:00 Laboratory Results - last 24 hr 09/19/21 08:31: WBC 13.4 H D, RBC 4.45 L D, Hgb 10.2 L, Hct 34.3 L, MCV 77.2 L, MCH 22.9 L, MCHC 29.6 L, RDW 19.4 H, Plt Count 336, MPV 7.3 L, Neut % (Auto) 84.6 H, Lymph % (Auto) 10.7, [place] % (Auto) 4.2, Eos % (Auto) 0.3, Baso % (Auto) 0.2, Neut # (Auto) 11.3 H, Lymph # (Auto) 1.4, [place] # (Auto) 0.6, Eos # (Auto) 0.0, Baso # (Auto) 0.0 09/19/21 08:31: Sodium 137, Potassium 4.0, Chloride 96 L, Carbon Dioxide 27, Anion Gap 18.0 H, BUN 50 H D, Creatinine 1.80 H, Estimated Creat Clear 48, Estimated GFR 37 L, Est GFR ( Amer) 44 L, Glucose 427 H*, Calcium 8.4 09/19/21 11:08: POC Glucose 465 H* 09/19/21 16:01: POC Glucose 329 H* 09/19/21 21:57: Random Glucose 602 H* I & O for Last 24 hours: Intake & Output 09/17/21 09/18/21 09/19/21 09/20/21 11:59 11:59 11:59 11:59 Intake Total 0 / 0 1000 / 1000 1100 / 1100 840 / 840 Output Total 2250 / 2250 2650 / 2650 3370 / 3370 2250 / 2250 Balance -2250 / -2250 -1650 / -1650 -2270 / -2270 -1410 / -1410 Weight 238 lb 1.588 oz 225 lb 14.4 oz 226 lb 1.6 oz 224 lb - Constitutional no acute distress
--- NOTE | 2021-09-20 08:47 | HMH.ACPN ---
Internal Medicine - PN: Subj *Date: 09/20/21 *Time: 08:47 Exam Vital signs and Labs for Last 24 Hours: Temp Pulse Resp BP Pulse Ox 97.5 F L 64 21 134/72 92 L 09/20/21 08:00 09/20/21 08:00 09/20/21 08:00 09/20/21 08:00 09/20/21 08:00 Laboratory Results - last 24 hr 09/19/21 08:31: WBC 13.4 H D, RBC 4.45 L D, Hgb 10.2 L, Hct 34.3 L, MCV 77.2 L, MCH 22.9 L, MCHC 29.6 L, RDW 19.4 H, Plt Count 336, MPV 7.3 L, Neut % (Auto) 84.6 H, Lymph % (Auto) 10.7, [place] % (Auto) 4.2, Eos % (Auto) 0.3, Baso % (Auto) 0.2, Neut # (Auto) 11.3 H, Lymph # (Auto) 1.4, [place] # (Auto) 0.6, Eos # (Auto) 0.0, Baso # (Auto) 0.0 09/19/21 08:31: Sodium 137, Potassium 4.0, Chloride 96 L, Carbon Dioxide 27, Anion Gap 18.0 H, BUN 50 H D, Creatinine 1.80 H, Estimated Creat Clear 48, Estimated GFR 37 L, Est GFR ( Amer) 44 L, Glucose 427 H*, Calcium 8.4 09/19/21 11:08: POC Glucose 465 H* 09/19/21 16:01: POC Glucose 329 H* 09/19/21 21:57: Random Glucose 602 H* I & O for Last 24 hours: Intake & Output 09/17/21 09/18/21 09/19/21 09/20/21 23:59 23:59 23:59 23:59 Intake Total 640 / 640 970 / 970 730 / 730 600 / 600 Output Total 4250 / 4250 2550 / 2750 2120 / 2720 1600 / 1600 Balance -3610 / -3610 -1580 / -1780 -1390 / -1990 -1000 / -1000 Weight 108 kg 102.467 kg 102.557 kg 101.605 kg Assessment and Plan (1) Acute exacerbation of chronic obstructive airways disease Status: Acute Category: Medical Code(s): J44.1 - Chronic obstructive pulmonary disease with (acute) exacerbation (2) Elevated brain natriuretic peptide (BNP) level Status: Acute Category: Medical Code(s): R79.89 - Other specified abnormal findings of blood chemistry (3) Anemia Status: Acute Qualifiers: Anemia type: unspecified type Qualified Code(s): D64.9 - Anemia, unspecified Category: Medical Code(s): D64.9 - Anemia, unspecified (4) Heart failure Status: Acute Qualifiers: Heart failure type: unspecified Heart failure chronicity: acute on chronic Qualified Code(s): I50.9 - Heart failure, unspecified Category: Medical Code(s): I50.9 - Heart failure, unspecified (5) Congestive heart failure Status: Chronic Qualifiers: Heart failure type: diastolic Heart failure chronicity: chronic Qualified Code(s): I50.32 - Chronic diastolic (congestive) heart failure Category: Medical Code(s): I50.9 - Heart failure, unspecified (6) Shortness of breath Status: Acute Category: Medical Code(s): R06.02 - Shortness of breath (7) Class 2 obesity with body mass index (BMI) of 38.0 to 38.9 in adult Status: Acute Qualifiers: Obesity type: due to excess calories Serious obesity comorbidity presence: with serious comorbidity Qualified Code(s): E66.01 - Morbid (severe) obesity due to excess calories; Z68.38 - Body mass index [BMI] 38.0-38.9, adult Category: Medical Code(s): E66.9 - Obesity, unspecified; Z68.38 - Body mass index [BMI] 38.0-38.9, adult (8) Diastolic CHF Status: Chronic Qualifiers: Heart failure chronicity: chronic Qualified Code(s): I50.32 - Chronic diastolic (congestive) heart failure Category: Medical Code(s): I50.30 - Unspecified diastolic (congestive) heart failure (9) 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
--- NOTE | 2021-09-20 09:49 | HMH.ACPN2 ---
Internal Medicine - PN: Subj *Date: 09/21/21 *Time: 06:49 Interval history: doing better but still on o2 at 5/l and has elevated glu Exam Vital signs and Labs for Last 24 Hours: Temp Pulse Resp BP Pulse Ox 97.5 F L 64 21 134/72 92 L 09/20/21 08:00 09/20/21 08:00 09/20/21 08:00 09/20/21 08:00 09/20/21 08:00 Laboratory Results - last 24 hr 09/19/21 08:31: Sodium 137, Potassium 4.0, Chloride 96 L, Carbon Dioxide 27, Anion Gap 18.0 H, BUN 50 H D, Creatinine 1.80 H, Estimated Creat Clear 48, Estimated GFR 37 L, Est GFR ( Amer) 44 L, Glucose 427 H*, Calcium 8.4 09/19/21 11:08: POC Glucose 465 H* 09/19/21 16:01: POC Glucose 329 H* 09/19/21 21:57: Random Glucose 602 H* I & O for Last 24 hours: Intake & Output 09/17/21 09/18/21 09/19/21 09/20/21 11:59 11:59 11:59 11:59 Intake Total 0 / 0 1000 / 1000 1100 / 1100 840 / 840 Output Total 2250 / 2250 2650 / 2650 3370 / 3370 2250 / 2250 Balance -2250 / -2250 -1650 / -1650 -2270 / -2270 -1410 / -1410 Weight 238 lb 1.588 oz 225 lb 14.4 oz 226 lb 1.6 oz 224 lb - Constitutional no acute distress, obese - *Routine HEENT Exam Head: Present: normocephalic Eye: Present: EOMI, PERRL ENT: Present: mucous membranes dry - *Routine Neck Exam Absent: JVD - *Routine Respiratory Exam Present: decreased breath sounds, rhonchi - *Routine Cardiovascular Exam Present: RRR - *Routine Abdominal Exam Present: soft - *Routine Extremities Exam Absent: calf tenderness - *Routine Skin Exam Present: intact - *Routine Neurological Exam Present: alert, CN II-XII intact - Routine Psychiatric Exam Present: cooperative Assessment and Plan (1) Acute exacerbation of chronic obstructive airways disease Status: Acute Category: Medical Code(s): J44.1 - Chronic obstructive pulmonary disease with (acute) exacerbation (2) Elevated brain natriuretic peptide (BNP) level Status: Acute Category: Medical Code(s): R79.89 - Other specified abnormal findings of blood chemistry (3) Anemia Status: Acute Qualifiers: Anemia type: unspecified type Qualified Code(s): D64.9 - Anemia, unspecified Category: Medical Code(s): D64.9 - Anemia, unspecified (4) Heart failure Status: Acute Qualifiers: Heart failure type: unspecified Heart failure chronicity: acute on chronic Qualified Code(s): I50.9 - Heart failure, unspecified Category: Medical Code(s): I50.9 - Heart failure, unspecified (5) Congestive heart failure Status: Chronic Qualifiers: Heart failure type: diastolic Heart failure chronicity: chronic Qualified Code(s): I50.32 - Chronic diastolic (congestive) heart failure Category: Medical Code(s): I50.9 - Heart failure, unspecified (6) Shortness of breath Status: Acute Category: Medical Code(s): R06.02 - Shortness of breath (7) Class 2 obesity with body mass index (BMI) of 38.0 to 38.9 in adult Status: Acute Qualifiers: Obesity type: due to excess calories Serious obesity comorbidity presence: with serious comorbidity Qualified Code(s): E66.01 - Morbid (severe) obesity due to excess calories; Z68.38 - Body mass index [BMI] 38.0-38.9, adult Category: Medical Code(s): E66.9 - Obesity, unspecified; Z68.38 - Body mass index [BMI] 38.0-38.9, adult (8) Diastolic CHF Status: Chronic Qualifiers: Heart failure chronicity: chronic Qualified Code(s): I50.32 - Chronic diastolic (congestive) heart failure Category: Medical Code(s): I50.30 - Unspecified diastolic (congestive) heart failure (9) 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
[2021-09-20 10:35] LABS: Chloride 94 mmol/L (98-107); Potassium 3.8 mmoL/L (3.5-5.1); Sodium 133 mmol/L (136-145)
[2021-09-20 10:38] LABS: Anion Gap 10.8 mEq/L (5-15); Blood Urea Nitrogen 52 mg/dl (9-20); Carbon Dioxide 32 mmol/L (22.0-30.0); Creatinine Clearance Estimated 48 mL/min (50-200); Estimated Glomerular Filt Rate 37 ml/min (>60); GFR (African American) 44 ML/MIN (>60); Glucose 385 mg/dl (74-100)
--- NOTE | 2021-09-20 12:30 | PC.NURSE ---
Sputum sent to lab
--- NOTE | 2021-09-20 17:00 | PC.NURSE ---
notified ND of HI fsbs. new orders received
[2021-09-20 17:01] LABS: Glucose,Random 506 mg/dL (74-100)
[2021-09-20 21:49] LABS: POC Glucose,Bedside 440 (70-110)
[2021-09-21] VITALS (12 sets, daily range): BP systolic 137–163; BP diastolic 60–76; PULSE 68–86; RESP 16–19; TEMP 36.6–37; O2SAT 91–97; BMI 34.8
[2021-09-21 00:49] LABS: POC Glucose,Bedside 574 (70-110)
[2021-09-21 00:49] LABS: POC Glucose,Bedside 184 (70-110)
--- NOTE | 2021-09-21 05:43 | PC.NURSE ---
pt has remained on 4L this shift, O2 sats 93-94%, no complaints of SOA or pain this shift, HR 72-81, BBB on telemetry, FSBS 440 at 2100
[2021-09-21 07:27] LABS: Basophils % 0.2 % (0.1-2.0); Eosinophils # 0.1 K/mm3 (0.0-0.4); Eosinophils % 0.6 % (0.1-12.0); Hematocrit 34.5 % (42.0-52.0); Hemoglobin 10.3 g/dL (14.1-18.0); Lymphocytes % 13.6 % (10-50); Mean Corpuscular HGB Conc 29.7 g/dL (31.8-35.4); Mean Corpuscular Hemoglobin 22.6 pg (27.0-31.2); Mean Corpuscular Volume 76.1 fl (80-94); Mean Platelet Volume 7.5 fl (7.4-10.4); Monocytes # 0.5 K/mm3 (0.1-1.0); Monocytes % 6.1 % (1.7-9.3); Neutrophils # 5.9 K/mm3 (1.8-7.8); Neutrophils % 79.5 % (37.0-80.0); Platelet Count 347 K/mm3 (142-424); Red Blood Count 4.54 M/mm3 (4.60-6.20); Red Cell Distribution Width 20.7 % (11.5-17.5); White Blood Count 7.4 K/mm3 (4.8-10.8)
[2021-09-21 07:41] LABS: Chloride 95 mmol/L (98-107); Sodium 132 mmol/L (136-145)
[2021-09-21 07:42] LABS: Potassium 3.4 mmoL/L (3.5-5.1)
[2021-09-21 07:44] LABS: Anion Gap 10.4 mEq/L (5-15); Blood Urea Nitrogen 56 mg/dl (9-20); Calcium 7.8 mg/dl (8.4-10.2); Carbon Dioxide 30 mmol/L (22.0-30.0); Creatinine Clearance Estimated 57 mL/min (50-200); Estimated Glomerular Filt Rate 45 ml/min (>60); GFR (African American) 55 ML/MIN (>60); Glucose 283 mg/dl (74-100)
--- NOTE | 2021-09-21 08:47 | HMH.PULMPN ---
Internal Medicine - PN: Subj *Date: 09/21/21 *Time: 11:39 Interval history: No acute respiratory vents over the weekend. Improving oxygen requirements. Exam - Constitutional Constitutional:: Present: no acute distress, comfortable - HENMT Exam HENMT: Present: normocephalic - Eye Exam Eyes:: Present: normal appearance both eyes and related structures - Respiratory Exam Respiratory:: Present: able to speak in complete sentences, no respiratory distress. Absent: wheezing - Cardiovascular Exam Cardiac:: Present: S1, S2 - GI Exam GI:: Present: soft - Skin Exam Skin: Present: warm, no rash - Neurological Exam Neurological: Present: alert, awake, normal cognition - Extremities Exam Extremities: Present: no cyanosis, no clubbing, no edema Assessment and Plan (1) Acute exacerbation of chronic obstructive airways disease Status: Acute Category: Medical Code(s): J44.1 - Chronic obstructive pulmonary disease with (acute) exacerbation (2) Elevated brain natriuretic peptide (BNP) level Status: Acute Category: Medical Code(s): R79.89 - Other specified abnormal findings of blood chemistry (3) Anemia Status: Acute Qualifiers: Anemia type: unspecified type Qualified Code(s): D64.9 - Anemia, unspecified Category: Medical Code(s): D64.9 - Anemia, unspecified (4) Heart failure Status: Acute Qualifiers: Heart failure type: unspecified Heart failure chronicity: acute on chronic Qualified Code(s): I50.9 - Heart failure, unspecified Category: Medical Code(s): I50.9 - Heart failure, unspecified (5) Congestive heart failure Status: Chronic Qualifiers: Heart failure type: diastolic Heart failure chronicity: chronic Qualified Code(s): I50.32 - Chronic diastolic (congestive) heart failure Category: Medical Code(s): I50.9 - Heart failure, unspecified (6) Shortness of breath Status: Acute Category: Medical Code(s): R06.02 - Shortness of breath (7) Class 2 obesity with body mass index (BMI) of 38.0 to 38.9 in adult Status: Acute Qualifiers: Obesity type: due to excess calories Serious obesity comorbidity presence: with serious comorbidity Qualified Code(s): E66.01 - Morbid (severe) obesity due to excess calories; Z68.38 - Body mass index [BMI] 38.0-38.9, adult Category: Medical Code(s): E66.9 - Obesity, unspecified; Z68.38 - Body mass index [BMI] 38.0-38.9, adult (8) Diastolic CHF Status: Chronic Qualifiers: Heart failure chronicity: chronic Qualified Code(s): I50.32 - Chronic diastolic (congestive) heart failure Category: Medical Code(s): I50.30 - Unspecified diastolic (congestive) heart failure (9) 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 Noncompliant with inhalers at baseline. Presented hospital worsening respiratory distress. CTA on admission did not show any evidence of pulmonary embolism, did not show any dense airspace disease. Showed evidence of volume overload and faint groundglass opacities. Flu and COVID-19 PCR negative. Evidence of leukocytosis noted with WBC 13.9. Not a significant anemia on admission, improved. Also noted to have ERMA on CKD. Etiology of this patient's current respiratory failure is predominantly volume overload along with possible COPD exacerbation. Interval update: Oral patient respiratory status continued to improve with antibiotics and diuretics, he is also recommends were weaned to 3 L This morning saturating 93%. Patient on 4 L long-term oxygen therapy. Plan: -Incentive spirometry. -Continue nasal cannula oxygen supplementation t
--- NOTE | 2021-09-21 09:23 | HMH.PNCARD ---
Subjective Date: 09/21/21 Time: 08:00 Principal diagnosis: Anemia, GI bleed, CHF Interval history: 81-year-old white male in bed sleeping at the time of my visit in no acute distress. Patient was awakened and denies any chest pain, pressure or tightness. His breathing he feels is better. Hemoglobin has improved to 10.2 He has diuresed over 8 L this admission Creatinine is stable at 1.5 this morning Exam Vital signs and Labs for Last 24 Hours: Temp Pulse Resp BP Pulse Ox 98.6 F 68 16 149/68 H 95 09/21/21 08:00 09/21/21 08:00 09/21/21 08:00 09/21/21 08:00 09/21/21 08:00 Laboratory Results - last 24 hr 09/20/21 01:07: POC Glucose 574 H* 09/20/21 06:07: POC Glucose 184 H 09/20/21 10:20: Sodium 133 L, Potassium 3.8, Chloride 94 L, Carbon Dioxide 32 H, Anion Gap 10.8, BUN 52 H, Creatinine 1.80 H, Estimated Creat Clear 48, Estimated GFR 37 L, Est GFR ( Amer) 44 L, Glucose 385 H, Calcium 8.0 L 09/20/21 16:35: Random Glucose 506 H* 09/20/21 20:41: POC Glucose 440 H* 09/21/21 07:05: WBC 7.4 D, RBC 4.54 L, Hgb 10.3 L, Hct 34.5 L, MCV 76.1 L, MCH 22.6 L, MCHC 29.7 L, RDW 20.7 H, Plt Count 347, MPV 7.5, Neut % (Auto) 79.5, Lymph % (Auto) 13.6, [place] % (Auto) 6.1, Eos % (Auto) 0.6, Baso % (Auto) 0.2, Neut # (Auto) 5.9, Lymph # (Auto) 1.0, [place] # (Auto) 0.5, Eos # (Auto) 0.1, Baso # (Auto) 0.0 09/21/21 07:05: Sodium 132 L, Potassium 3.4 L, Chloride 95 L, Carbon Dioxide 30, Anion Gap 10.4, BUN 56 H, Creatinine 1.50 H, Estimated Creat Clear 57, Estimated GFR 45 L, Est GFR ( Amer) 55 L D, Glucose 283 H D, Calcium 7.8 L I & O for Last 24 hours: Intake & Output 09/18/21 09/19/21 09/20/21 09/21/21 11:59 11:59 11:59 11:59 Intake Total 1000 / 1000 1100 / 1100 840 / 840 1320 / 1320 Output Total 2650 / 2650 3370 / 3370 2650 / 2650 1625 / 1625 Balance -1650 / -1650 -2270 / -2270 -1810 / -1810 -305 / -305 Weight 225 lb 14.4 oz 226 lb 1.6 oz 224 lb 221 lb 14.4 oz Microbiology Reports for the Last 24 Hours: Microbiology 09/20/21 12:30 Sputum - Expectorated Sputum Gram Stain - Final 09/20/21 12:30 Sputum - Expectorated Sputum Sputum Culture - Preliminary - *Routine Respiratory Exam Present: CTA bilaterally - *Routine Cardiovascular Exam Present: RRR - *Routine Neurological Exam Present: alert, oriented X3 Progress Note: A&P (1) Acute exacerbation of chronic obstructive airways disease Status: Acute (2) Elevated brain natriuretic peptide (BNP) level Status: Acute (3) Anemia Status: Acute (4) Heart failure Status: Acute (5) Congestive heart failure Status: Chronic (6) Shortness of breath Status: Acute (7) Class 2 obesity with body mass index (BMI) of 38.0 to 38.9 in adult Status: Acute (8) Diastolic CHF Status: Chronic Assessment and plan: Acute on chronic diastolic congestive heart failure (9) IDDM (insulin dependent diabetes mellitus) Status: Chronic Assessment and Plan for All Diagnoses:: 1. Combined, chronic systolic and diastolic CHF acutely exacerbated by anemia. Patient has diuresed over 8 L this admission and will continue IV diuretic therapy at this time. Continue to monitor renal status. 2. Anemia with GI bleed, surgery is following and treating. Patient is okay from a cardiac standpoint to proceed with endoscopy if that is felt needed during this admission. 3. COPD, per Pulmonology 4. IDDM, per PCP
--- NOTE | 2021-09-21 09:50 | SW/DCPLANNER ---
Addendum entered by [facility] 09/22/21 13:02: Jazmine with [facility] has stated they can accept this patient and services will begin this week. Addendum entered by [facility] 09/22/21 11:37: [facility] has stated they can not services this patient due to staffing issues. Patient information/order has been faxed to Jazmine lewis/ [facility]. Addendum entered by [facility] 09/22/21 09:36: Patient information/order has been faxed to [facility]. This patient will discharge home today. Original Note: The plan for this patient is to discharge home once medically stable. Patient was previously established with [facility]: info/order will be faxed at time of discharge. Patient could potentially discharge later today. Patient is also established with [facility] for home O2.
--- NOTE | 2021-09-21 10:18 | HMH.DCSUM ---
General - General Admission date:: 09/16/21 Discharge date: 09/21/21 HPI HPI: 81-year-old male patient presented to the [facility] emergency department with reports of chest pain and increasing shortness of breath over the last couple days. He does report weight gain over the last several days even while maintaining his medical regimen. He denies any fever/chills/body aches or nausea/vomiting/diarrhea. He does have a history of congestive heart failure, COPD, and home O2 at 3 to 4 L. In the emergency department he did was escalated to 6 L per nasal cannula and hemoglobin was found to be 6.5. He did receive 1 unit of packed red blood cells for that with increase of hemoglobin to 8.3 09/16/21 CXR: IMPRESSION: Bibasilar atelectasis or scar. No significant change from prior. Reviewed, Interpreted and Dictated by Marco Antonio Griffiths III, MD 09/16/21 Chest CTA: FINDINGS: Tubes, catheters and devices: There are sternal wires consistent with previous sternotomy incision. Pulmonary arteries: No evidence of pulmonary embolism. Aorta: No evidence of aortic dissection. Lungs: Atelectatic and/or infiltrative changes noted within both lung bases. Pleural spaces: Bilateral pleural effusions. Heart: Mild cardiomegaly. No pericardial effusion. Lymph nodes: Calcified left hilar lymph nodes present. Gallbladder and bile ducts: Multiple calcified gallstones are present. Spleen: The spleen demonstrates punctate calcifications, consistent with remote granulomatous organism exposure. Bones/joints: The thoracic spine demonstrates mild degenerative changes at multiple levels. Soft tissues: Unremarkable. IMPRESSION: 1. No evidence of pulmonary embolism. 2. No evidence of aortic dissection. 3. Bilateral pleural effusions. 4. Atelectatic and/or infiltrative changes noted within both lung bases. 5. Multiple calcified gallstones are present. Electronically signed by Morris Faith DO 81-year-old male patient resting quietly in bed she does report some shortness of breath during the night but denies chest pain. General surgery will be consulted for ongoing anemia and GI bleeds in the past. We will consult cardiology also for chest pain Hospital Course Hospital Course: Abnormal Lab Results 09/20/21 01:07: POC Glucose 574 H* 09/20/21 06:07: POC Glucose 184 H 09/20/21 10:20: Sodium 133 L, Chloride 94 L, Carbon Dioxide 32 H, BUN 52 H, Creatinine 1.80 H, Estimated GFR 37 L, Est GFR ( Amer) 44 L, Glucose 385 H, Calcium 8.0 L 09/20/21 16:35: Random Glucose 506 H* 09/20/21 20:41: POC Glucose 440 H* 09/21/21 07:05: RBC 4.54 L, Hgb 10.3 L, Hct 34.5 L, MCV 76.1 L, MCH 22.6 L, MCHC 29.7 L, RDW 20.7 H 09/21/21 07:05: Sodium 132 L, Potassium 3.4 L, Chloride 95 L, BUN 56 H, Creatinine 1.50 H, Estimated GFR 45 L, Est GFR ( Amer) 55 L D, Glucose 283 H D, Calcium 7.8 L Microbiology 09/20/21 12:30 Sputum - Expectorated Sputum Gram Stain - Final 09/20/21 12:30 Sputum - Expectorated Sputum Sputum Culture - Preliminary cardiology consult: Assessment and Plan for All Diagnoses:: 1. Combined, chronic systolic and diastolic CHF acutely exacerbated by anemia. Patient has diuresed over 8 L this admission and will continue IV diuretic therapy at this time. Continue to monitor renal status. 2. Anemia with GI bleed, surgery is following and treating. Patient is okay from a cardiac standpoint to proceed with endoscopy if that is felt needed during this admission. 3. COPD, per Pulmonology 4. IDDM, per PCP pulm consult:Assessment and Plan for all problems:: #Acute on chronic hypoxic respiratory failure: #COPD exacerbation: 81-year-old greater than [id number] smoking record with diagnosis of COPD. Noncompliant with inhalers at baseline. Presented hospital worsening respiratory distress. CTA on admission did not show any evidence of pulmonary embolism, did not show any
--- NOTE | 2021-09-21 10:46 | HMH.GSPN ---
Subjective Narrative: Preparations are being made for discharge. Patient states that he is still somewhat sleepy. His hemoglobin has remained stable. However, patient states that he passed a lot of dark blood yesterday. Progress Note: A&P (1) Acute exacerbation of chronic obstructive airways disease Status: Acute (2) Elevated brain natriuretic peptide (BNP) level Status: Acute (3) Anemia Status: Acute 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 Assessment and Plan for All Diagnoses:: Due to patient's passage of blood along with possible positive bleeding scan I will plan with upper endoscopy and colonoscopy while an inpatient. Plan will be for bowel preparation today with EGD and colonoscopy tomorrow morning. Exam Vital signs and Labs for Last 24 Hours: Temp Pulse Resp BP Pulse Ox 98.6 F 68 16 149/68 H 95 09/21/21 08:00 09/21/21 08:00 09/21/21 08:00 09/21/21 08:00 09/21/21 08:00 Laboratory Results - last 24 hr 09/20/21 01:07: POC Glucose 574 H* 09/20/21 06:07: POC Glucose 184 H 09/20/21 16:35: Random Glucose 506 H* 09/20/21 20:41: POC Glucose 440 H* 09/21/21 07:05: WBC 7.4 D, RBC 4.54 L, Hgb 10.3 L, Hct 34.5 L, MCV 76.1 L, MCH 22.6 L, MCHC 29.7 L, RDW 20.7 H, Plt Count 347, MPV 7.5, Neut % (Auto) 79.5, Lymph % (Auto) 13.6, [place] % (Auto) 6.1, Eos % (Auto) 0.6, Baso % (Auto) 0.2, Neut # (Auto) 5.9, Lymph # (Auto) 1.0, [place] # (Auto) 0.5, Eos # (Auto) 0.1, Baso # (Auto) 0.0 09/21/21 07:05: Sodium 132 L, Potassium 3.4 L, Chloride 95 L, Carbon Dioxide 30, Anion Gap 10.4, BUN 56 H, Creatinine 1.50 H, Estimated Creat Clear 57, Estimated GFR 45 L, Est GFR ( Amer) 55 L D, Glucose 283 H D, Calcium 7.8 L I & O for Last 24 hours: Intake & Output 09/18/21 09/19/21 09/20/21 09/21/21 11:59 11:59 11:59 11:59 Intake Total 1000 / 1000 1100 / 1100 840 / 840 1320 / 1320 Output Total 2650 / 2650 3370 / 3370 2650 / 2650 1625 / 1625 Balance -1650 / -1650 -2270 / -2270 -1810 / -1810 -305 / -305 Weight 225 lb 14.4 oz 226 lb 1.6 oz 224 lb 221 lb 14.4 oz Microbiology Reports for the Last 24 Hours: Microbiology 09/20/21 12:30 Sputum - Expectorated Sputum Gram Stain - Final 09/20/21 12:30 Sputum - Expectorated Sputum Sputum Culture - Preliminary - Constitutional no acute distress
--- NOTE | 2021-09-21 10:49 | HMH.ACPN2 ---
Internal Medicine - PN: Subj *Date: 09/21/21 *Time: 08:15 Interval history: plan for egd/colonoscopy Exam Vital signs and Labs for Last 24 Hours: Temp Pulse Resp BP Pulse Ox 98.6 F 68 16 149/68 H 95 09/21/21 08:00 09/21/21 08:00 09/21/21 08:00 09/21/21 08:00 09/21/21 08:00 Laboratory Results - last 24 hr 09/20/21 01:07: POC Glucose 574 H* 09/20/21 06:07: POC Glucose 184 H 09/20/21 16:35: Random Glucose 506 H* 09/20/21 20:41: POC Glucose 440 H* 09/21/21 07:05: WBC 7.4 D, RBC 4.54 L, Hgb 10.3 L, Hct 34.5 L, MCV 76.1 L, MCH 22.6 L, MCHC 29.7 L, RDW 20.7 H, Plt Count 347, MPV 7.5, Neut % (Auto) 79.5, Lymph % (Auto) 13.6, [place] % (Auto) 6.1, Eos % (Auto) 0.6, Baso % (Auto) 0.2, Neut # (Auto) 5.9, Lymph # (Auto) 1.0, [place] # (Auto) 0.5, Eos # (Auto) 0.1, Baso # (Auto) 0.0 09/21/21 07:05: Sodium 132 L, Potassium 3.4 L, Chloride 95 L, Carbon Dioxide 30, Anion Gap 10.4, BUN 56 H, Creatinine 1.50 H, Estimated Creat Clear 57, Estimated GFR 45 L, Est GFR ( Amer) 55 L D, Glucose 283 H D, Calcium 7.8 L I & O for Last 24 hours: Intake & Output 09/18/21 09/19/21 09/20/21 09/21/21 11:59 11:59 11:59 11:59 Intake Total 1000 / 1000 1100 / 1100 840 / 840 1320 / 1320 Output Total 2650 / 2650 3370 / 3370 2650 / 2650 1625 / 1625 Balance -1650 / -1650 -2270 / -2270 -1810 / -1810 -305 / -305 Weight 225 lb 14.4 oz 226 lb 1.6 oz 224 lb 221 lb 14.4 oz Microbiology Reports for the Last 24 Hours: Microbiology 09/20/21 12:30 Sputum - Expectorated Sputum Gram Stain - Final 09/20/21 12:30 Sputum - Expectorated Sputum Sputum Culture - Preliminary - Constitutional no acute distress - *Routine HEENT Exam Head: Present: normocephalic Eye: Present: PERRL ENT: Present: mucous membranes moist - *Routine Neck Exam Present: supple. Absent: lymphadenopathy - *Routine Respiratory Exam Present: wheezes - *Routine Cardiovascular Exam Present: RRR - *Routine Abdominal Exam Present: soft, normoactive bowel sounds. Absent: tenderness - *Routine Extremities Exam Absent: cyanosis, clubbing, edema - *Routine Skin Exam Present: warm. Absent: rash - *Routine Neurological Exam Present: alert, oriented X3 Assessment and Plan (1) Acute exacerbation of chronic obstructive airways disease Status: Acute Category: Medical Code(s): J44.1 - Chronic obstructive pulmonary disease with (acute) exacerbation (2) Elevated brain natriuretic peptide (BNP) level Status: Acute Category: Medical Code(s): R79.89 - Other specified abnormal findings of blood chemistry (3) Anemia Status: Acute Qualifiers: Anemia type: unspecified type Qualified Code(s): D64.9 - Anemia, unspecified Category: Medical Code(s): D64.9 - Anemia, unspecified (4) Heart failure Status: Acute Qualifiers: Heart failure type: unspecified Heart failure chronicity: acute on chronic Qualified Code(s): I50.9 - Heart failure, unspecified Category: Medical Code(s): I50.9 - Heart failure, unspecified (5) Congestive heart failure Status: Chronic Qualifiers: Heart failure type: diastolic Heart failure chronicity: chronic Qualified Code(s): I50.32 - Chronic diastolic (congestive) heart failure Category: Medical Code(s): I50.9 - Heart failure, unspecified (6) Shortness of breath Status: Acute Category: Medical Code(s): R06.02 - Shortness of breath (7) Class 2 obesity with body mass index (BMI) of 38.0 to 38.9 in adult Status: Acute Qualifiers: Obesity type: due to excess calories Serious obesity comorbidity presence: with serious comorbidity Qualified Code(s): E66.01 - Morbid (severe) obesity due to excess calories; Z68.38 - Body mass index [BMI] 38.0-38.9, adult Category: Medical Code(s): E66.9 - Obesity, unspecified; Z68.38 - Body mass index [BMI] 38.0-38.9, adult (8) Diastolic CHF Status: Chronic Qualifiers: Heart failure chronicity: chronic Qualified
[2021-09-21 20:55] LABS: Glucose,Random 645 mg/dL (74-100)
[2021-09-22] VITALS (9 sets, daily range): BP systolic 118–171; BP diastolic 42–64; PULSE 60–73; RESP 18–22; TEMP 36.6–36.8; O2SAT 92–98; BMI 35.2
--- NOTE | 2021-09-22 07:16 | PC.NURSE ---
Pt off the floor at this time to surgery.
--- NOTE | 2021-09-22 08:14 | HMH.SCOPE ---
- Procedure: Date: 09/22/21 Patient Date of :: 1940 Procedure Performed:: Esophagogastroduodenoscopy with biopsies Total colonoscopy to terminal ileum with polypectomy and biopsy Indications:: Patient is a 81-year-old male with a longstanding history for several years of anemia with possible GI blood loss largely evaluated by Dr. Hernadez as inpatient and outpatient. In December 2017 the patient had undergone inpatient EGD and was found to have possible Marie-Leal tear versus distal esophagitis. In September 2018 he underwent EGD and colonoscopy at which time he had multiple complex polyps removed by colonoscopy. On 05/28/2021 patient was scheduled for EGD and colonoscopy as an outpatient. He had presented without taking bowel prep and therefore EGD alone was performed. Patient has repeatedly reiterated that he has not wish to undergo a capsule endoscopy even though this has been recommended numerous times by Dr. Hernadez. He had recently presented to the emergency department at [facility] with symptoms of chest pain and increasing shortness of breath over several days. He was found to have a hemoglobin of 6.5. He was admitted for inpatient management. He was transfused a unit of packed red blood cells with resultant hemoglobin of 8.3. Surgical consultation was obtained the patient was seen by Dr. Hernadez. Initially the patient had declined any endoscopic procedures. He did undergo tagged red blood cell bleeding scan on 09/18/2021 which revealed increased tracer activity in the left lateral abdomen on delayed imaging possibly consistent with area of bleeding in the descending colon according to radiology report. During his hospitalization he did undergo a couple of additional units of packed red blood cell transfusion with appropriate response and had remained stable with hemoglobin around 10. Arrangements were being made for discharge on 09/21/2021 and the patient states that he had some bleeding the day before. Given this and his findings on bleeding scan plan was made to proceed with panendoscopy. Performing Provider:: Marco Antonio Farias MD Referring Provider:: Rom Valencia MD Sedation:: MAC sedation Procedure:: Patient was taken to endoscopy procedure room. He was positioned in lateral decubitus position. Adequate intravenous sedation was achieved with anesthesia titration of propofol. Olympus endoscope was inserted via the oropharynx. Esophagus was cannulated. Esophagus appeared normal. Gastroesophageal junction was encountered at approximately 38 cm from the incisors. Stomach was cannulated and insufflated. Retroflexion revealed a small sliding hiatal hernia. There were some minor nonbleeding erosions at the gastric cardia. There were findings consistent with mild diffuse nonerosive gastropathy. There were a few likely gastric antral fundic gland polyps. Pylorus was traversed. There were findings of very mild nonerosive duodenitis. Biopsy was obtained. Endoscope was withdrawn into the stomach. Gastric biopsy was obtained for histopathologic analysis. Biopsy was obtained of presumed fundic gland polyp. Endoscope was withdrawn into the distal esophagus. Biopsy was obtained at the gastroesophageal junction to rule out Munson's esophagus. Stomach was desufflated and endoscope was withdrawn. Next attention was turned to colonoscopy. Variable stiffness Olympus colonoscope was inserted via the anus. It was advanced to the cecum without significant difficulty. Colonic preparation initially was fair as there was some particulate liquid stool throughout the colon. However, with thorough irrigation and suctioning adequate visualization was achieved. Ileocecal valve and appendiceal orifice were clearly identified. Colonoscope was briefly advanced short distance into the terminal ileum which appeared grossly normal. There was a tiny focal area of inflamed mucosa in the cecum which was removed with biopsy forceps. There was approximately
--- NOTE | 2021-09-22 08:24 | P.PN_ITS ---
[facility] Anesthesia Checklist - Patient Identification Patient Identification: Arm Band, Verbal (Name & ) - Structural Data Admitted From: Inpatient Planned Operative Procedure/s: EGD/Colonoscopy Consent for Planned Operative Procedure(s) Verified: Yes Verified Documents: Surgical Consent - NPO Status Verified Time NPO: 00:00 - Additional verifications Anesthesia Reactions: Yes (Delayed awakening) - Airway Assessment C-Spine Mobility Assessed: Yes TMJ Mobility Assessed: Yes Dentition: Edentulous - Neurological Assessment Level of Consciousness: Awake, Alert, Appropriate - Anesthesia Plan Anesthesia Risk discussed: Yes ASA Class: III Anesthesia Type: [facility] History I have reviewed the patient's past medical history: Yes Medical History: Reports:: Arrhythmia, Atrial Fibrillation, Cancer, Congestive Heart Failure, Chronic Obstructive Pulmonary Disease (COPD), Congenital Heart Disease, Coronary Artery Disease, Diabetes Mellitus Type 2, Gastroesophageal Reflux Disease(GERD), Gastrointestinal Bleed, Home Oxygen, Hyperlipidemia, Hypertension, Lung Disease, Kidney Stones, Myocardial Infarction, Renal Insufficiency Denies:: Diabetes Mellitus Type 1, Internal Pacemaker, MRSA, Seizures *Have you ever received a pneumonia vaccine?: Yes *Have you received a flu vaccine this season?: Yes Other Medical History: Reports: Anemia, Arthritis, Other Anesthesia experience/problems:: none Other Surgeries: Yes: No Previous Surgery, Angiogram, Angioplasty, CABG, Cancer Surgery, Cardiac Catheterization, Cardiac Surgery, Colonoscopy, Coronary Stent, EGD, Hernia Repair, Other. No: Pacemaker Amputation: No Fractures: No - *Social History Smoking Status: Former smoker Tobacco Type: cigarettes # Packs/Day (cigarettes): 1 Alcohol Intake: never Alcohol Intake Frequency:: other Substance Use Type: denies use *Occupational Status:: retired Housing: house Household Members: spouse *Travel in the last 8 weeks: None Family Hx:: Anemia, Coronary Artery Disease, Diabetes, Heart Attack, Hyperlipidemia, Hypertension, Stroke
--- NOTE | 2021-09-22 09:19 | HMH.DCSUM ---
General - General Admission date:: 09/16/21 Discharge date: 09/22/21 HPI HPI: 81-year-old male patient presented to the [facility] emergency department with reports of chest pain and increasing shortness of breath over the last couple days. He does report weight gain over the last several days even while maintaining his medical regimen. He denies any fever/chills/body aches or nausea/vomiting/diarrhea. He does have a history of congestive heart failure, COPD, and home O2 at 3 to 4 L. In the emergency department he did was escalated to 6 L per nasal cannula and hemoglobin was found to be 6.5. He did receive 1 unit of packed red blood cells for that with increase of hemoglobin to 8.3 09/16/21 CXR: IMPRESSION: Bibasilar atelectasis or scar. No significant change from prior. Reviewed, Interpreted and Dictated by Marco Antonio Griffiths III, MD 09/16/21 Chest CTA: FINDINGS: Tubes, catheters and devices: There are sternal wires consistent with previous sternotomy incision. Pulmonary arteries: No evidence of pulmonary embolism. Aorta: No evidence of aortic dissection. Lungs: Atelectatic and/or infiltrative changes noted within both lung bases. Pleural spaces: Bilateral pleural effusions. Heart: Mild cardiomegaly. No pericardial effusion. Lymph nodes: Calcified left hilar lymph nodes present. Gallbladder and bile ducts: Multiple calcified gallstones are present. Spleen: The spleen demonstrates punctate calcifications, consistent with remote granulomatous organism exposure. Bones/joints: The thoracic spine demonstrates mild degenerative changes at multiple levels. Soft tissues: Unremarkable. IMPRESSION: 1. No evidence of pulmonary embolism. 2. No evidence of aortic dissection. 3. Bilateral pleural effusions. 4. Atelectatic and/or infiltrative changes noted within both lung bases. 5. Multiple calcified gallstones are present. Electronically signed by Morris Faith DO 81-year-old male patient resting quietly in bed she does report some shortness of breath during the night but denies chest pain. General surgery will be consulted for ongoing anemia and GI bleeds in the past. We will consult cardiology also for chest pain Hospital Course Hospital Course: 81-year-old male patient presented to the [facility] emergency department with reports of chest pain and increasing shortness of breath over the last couple days. He does report weight gain over the last several days even while maintaining his medical regimen. 09/16/21 CXR: IMPRESSION: Bibasilar atelectasis or scar. No significant change from prior. Reviewed, Interpreted and Dictated by Marco Antonio Griffiths III, MD 09/16/21 Chest CTA: FINDINGS: Tubes, catheters and devices: There are sternal wires consistent with previous sternotomy incision. Pulmonary arteries: No evidence of pulmonary embolism. Aorta: No evidence of aortic dissection. Lungs: Atelectatic and/or infiltrative changes noted within both lung bases. Pleural spaces: Bilateral pleural effusions. Heart: Mild cardiomegaly. No pericardial effusion. Lymph nodes: Calcified left hilar lymph nodes present. Gallbladder and bile ducts: Multiple calcified gallstones are present. Spleen: The spleen demonstrates punctate calcifications, consistent with remote granulomatous organism exposure. Bones/joints: The thoracic spine demonstrates mild degenerative changes at multiple levels. Soft tissues: Unremarkable. IMPRESSION: 1. No evidence of pulmonary embolism. 2. No evidence of aortic dissection. 3. Bilateral pleural effusions. 4. Atelectatic and/or infiltrative changes noted within both lung bases. 5. Multiple calcified gallstones are present. Electronically signed by Morris Faith DO 09/18/2021 echo: Conclusion 1. Biatrial enlargement, normal left ventricular size, mild concentric left ventr
--- NOTE | 2021-09-22 09:22 | HMH.PULMPN ---
Internal Medicine - PN: Subj *Date: 09/22/21 *Time: 10:19 Interval history: No acute respiratory vents overnight. Patient continues to remain on 3 to 4 L nasal cannula saturations maintained at 90% and above. Admits improvement in his symptoms. Exam - Constitutional Constitutional:: Present: no acute distress, comfortable - HENMT Exam HENMT: Present: normocephalic, atraumatic - Eye Exam Eyes:: Present: normal appearance both eyes and related structures - Neck Exam Neck:: Present: normal visual inspection - Respiratory Exam Respiratory:: Present: able to speak in complete sentences, no respiratory distress, crackles. Absent: wheezing - Cardiovascular Exam Cardiac:: Present: S1, S2 - GI Exam GI:: Present: soft - Skin Exam Skin: Present: warm, no rash - Neurological Exam Neurological: Present: alert, awake, normal cognition - Extremities Exam Extremities: Present: no cyanosis, no clubbing, no edema Assessment and Plan (1) Acute exacerbation of chronic obstructive airways disease Status: Acute Category: Medical Code(s): J44.1 - Chronic obstructive pulmonary disease with (acute) exacerbation (2) Elevated brain natriuretic peptide (BNP) level Status: Acute Category: Medical Code(s): R79.89 - Other specified abnormal findings of blood chemistry (3) Anemia Status: Acute Qualifiers: Anemia type: unspecified type Qualified Code(s): D64.9 - Anemia, unspecified Category: Medical Code(s): D64.9 - Anemia, unspecified (4) Heart failure Status: Acute Qualifiers: Heart failure type: unspecified Heart failure chronicity: acute on chronic Qualified Code(s): I50.9 - Heart failure, unspecified Category: Medical Code(s): I50.9 - Heart failure, unspecified (5) Congestive heart failure Status: Chronic Qualifiers: Heart failure type: diastolic Heart failure chronicity: chronic Qualified Code(s): I50.32 - Chronic diastolic (congestive) heart failure Category: Medical Code(s): I50.9 - Heart failure, unspecified (6) Shortness of breath Status: Acute Category: Medical Code(s): R06.02 - Shortness of breath (7) Class 2 obesity with body mass index (BMI) of 38.0 to 38.9 in adult Status: Acute Qualifiers: Obesity type: due to excess calories Serious obesity comorbidity presence: with serious comorbidity Qualified Code(s): E66.01 - Morbid (severe) obesity due to excess calories; Z68.38 - Body mass index [BMI] 38.0-38.9, adult Category: Medical Code(s): E66.9 - Obesity, unspecified; Z68.38 - Body mass index [BMI] 38.0-38.9, adult (8) Diastolic CHF Status: Chronic Qualifiers: Heart failure chronicity: chronic Qualified Code(s): I50.32 - Chronic diastolic (congestive) heart failure Category: Medical Code(s): I50.30 - Unspecified diastolic (congestive) heart failure (9) IDDM (insulin dependent diabetes mellitus) Status: Chronic Category: Medical Code(s): E11.9 - Type 2 diabetes mellitus without complications; Z79.4 - jail (current) 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 - Assessment and plan all Dx Assessment and Plan for all problems:: #Acute on chronic hypoxic respiratory failure: #COPD exacerbation: 81-year-old greater than [id number] smoking record with diagnosis of COPD. Noncompliant with inhalers at baseline. Presented hospital worsening respiratory distress. CTA on admission did not show any evidence of pulmonary embolism, did not show any dense airspace disease. Showed evidence of volume overload and faint groundglass opacities. Flu and COVID-19 PCR negative. Evidence of leukocytosis noted with WBC 13.9. Not a significant anemia on admission, improved. Also noted to have ERMA on CKD. Etiology of this patient's current respiratory failure is likely 2/2 combination of volume overload and COPD exacerbation. Interval update: Respiratory status continued to improve, this morning on examination at 3 L saturating 92%. Patient on chron
[2021-09-22 09:33] LABS: Basophils % 0.3 % (0.1-2.0); Chloride 93 mmol/L (98-107); Eosinophils # 0.1 K/mm3 (0.0-0.4); Eosinophils % 0.8 % (0.1-12.0); Hematocrit 34.7 % (42.0-52.0); Hemoglobin 10.8 g/dL (14.1-18.0); Lymphocytes % 14.7 % (10-50); Mean Corpuscular HGB Conc 31.1 g/dL (31.8-35.4); Mean Platelet Volume 8.2 fl (7.4-10.4); Monocytes # 0.5 K/mm3 (0.1-1.0); Monocytes % 6.9 % (1.7-9.3); Neutrophils # 5.5 K/mm3 (1.8-7.8); Neutrophils % 77.3 % (37.0-80.0); Platelet Count 331 K/mm3 (142-424); Potassium 3.6 mmoL/L (3.5-5.1); Red Blood Count 4.69 M/mm3 (4.60-6.20); Red Cell Distribution Width 23.1 % (11.5-17.5); Sodium 135 mmol/L (136-145); White Blood Count 7.1 K/mm3 (4.8-10.8)
[2021-09-22 09:36] LABS: Anion Gap 11.6 mEq/L (5-15); Blood Urea Nitrogen 47 mg/dl (9-20); Calcium 7.9 mg/dl (8.4-10.2); Carbon Dioxide 34 mmol/L (22.0-30.0); Creatinine Clearance Estimated 72 mL/min (50-200); Estimated Glomerular Filt Rate 58 ml/min (>60); GFR (African American) 71 ML/MIN (>60); Glucose 168 mg/dl (74-100)
[2021-09-22 11:39] LABS: POC Glucose,Bedside 442 (70-110)
--- NOTE | 2021-09-22 12:34 | P.PN_ITS ---
Subjective Date: 09/22/21 Time: 12:34 Principal diagnosis: Anemia, GI bleed, CHF Interval history: Pt was in endoscopy this AM and was not seen. Exam Vital signs and Labs for Last 24 Hours: Temp Pulse Resp BP Pulse Ox 97.8 F 60 18 118/52 L 95 09/22/21 08:15 09/22/21 08:36 09/22/21 08:36 09/22/21 08:36 09/22/21 08:36 Laboratory Results - last 24 hr 09/21/21 20:25: Random Glucose 645 H* D 09/22/21 09:02: WBC 7.1, RBC 4.69, Hgb 10.8 L, Hct 34.7 L, MCV 74.0 L, MCH 23.0 L, MCHC 31.1 L, RDW 23.1 H, Plt Count 331, MPV 8.2, Neut % (Auto) 77.3, Lymph % (Auto) 14.7, [place] % (Auto) 6.9, Eos % (Auto) 0.8, Baso % (Auto) 0.3, Neut # (Auto) 5.5, Lymph # (Auto) 1.0, [place] # (Auto) 0.5, Eos # (Auto) 0.1, Baso # (Auto) 0.0 09/22/21 09:02: Sodium 135 L, Potassium 3.6, Chloride 93 L, Carbon Dioxide 34 H, Anion Gap 11.6, BUN 47 H, Creatinine 1.20, Estimated Creat Clear 72, Estimated GFR 58 L, Est GFR ( Amer) 71 D, Glucose 168 H, Calcium 7.9 L 09/22/21 11:20: POC Glucose 442 H* I & O for Last 24 hours: Intake & Output 09/20/21 09/21/21 09/22/21 09/23/21 11:59 11:59 11:59 11:59 Intake Total 840 / 840 1320 / 1320 720 / 720 Output Total 2650 / 2650 1625 / 1625 250 / 250 Balance -1810 / -1810 -305 / -305 470 / 470 Weight 224 lb 221 lb 14.4 oz 224 lb 4.8 oz Microbiology Reports for the Last 24 Hours: Microbiology 09/20/21 12:30 Sputum - Expectorated Sputum Gram Stain - Final 09/20/21 12:30 Sputum - Expectorated Sputum Sputum Culture - Preliminary Gram Positive Cocci Progress Note: A&P (1) Acute exacerbation of chronic obstructive airways disease Status: Acute (2) Elevated brain natriuretic peptide (BNP) level Status: Acute (3) Anemia Status: Acute 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 Assessment and Plan for All Diagnoses:: PCP has asked for home med recommendations: Continue home meds of: Plavix 75 mg daily Isosorbide mononitrate 60 mg daily Metoprolol tartrate 25 mg twice daily Torsemide 20 mg twice daily Crestor 40 mg daily Gemfibrozil 600 mg twice daily Stop nifedipine New med recommendations: verapamil SR 120 mg daily Potassium 20 mEq twice daily Follow-up in our office in 1 to 2 weeks.
--- NOTE | 2021-09-22 13:00 | PC.NURSE ---
RESPIRATORY CARE NOTE: PT TAKEN INCENTIVE SPIROMETER AND FLUTTER VALVE TO TAKE HOME. INSTRUCTED ON HOW TO DO BOTH AND ENCOURAGED PT TO DO BOTH EVERY DAY.
--- NOTE | 2021-09-22 13:03 | HMH.PHAINT ---
Discharge counseling complete. Informed pt there were no changes to [employer] medication regimen. Pt understood and had no questions or concerns
[2021-09-22 16:24] LABS: POC Glucose,Bedside 493 (70-110)
[2021-09-22 16:24] LABS: POC Glucose,Bedside 478 (70-110)
[2021-09-22 16:24] LABS: POC Glucose,Bedside 260 (70-110)
[2021-09-22 16:24] LABS: POC Glucose,Bedside 306 (70-110)
[2021-09-24 12:11] LABS: POC Glucose,Bedside 93 (70-110)
== END 2021-09-22 13:12 | disposition home or self-care (01) | DRG 377 ==
LOC: ER 13:20 → 2ND 18:25
PROVIDERS: Emergency Medicine; Internal Medicine Pulmonary Disease; Nurse Practitioner Family; Surgery; Admitting Provider Internal Medicine Adolescent Medicine; Emergency Provider Student in an Organized Health Care Education/Training Program; PCP Family Medicine; Visit Provider Family Medicine
PROC: 0DJ08ZZ Inspection of Upper Intestinal Tract, Via Natural or Artificial Opening Endoscopic (ICD-10-PCS; CPT 43235; principal; 2021-09-22 07:30)
DX: K29.81 Duodenitis with bleeding (principal); J96.21 Acute and chronic respiratory failure with hypoxia; I50.43 Acute on chronic combined systolic (congestive) and diastolic (congestive) heart failure; I13.0 Hypertensive heart and chronic kidney disease with heart failure and stage 1 through stage 4 chronic kidney disease, or unspecified chronic kidney disease; J44.1 Chronic obstructive pulmonary disease with (acute) exacerbation; N17.9 Acute kidney failure, unspecified; D62 Acute posthemorrhagic anemia; Z85.9 Personal history of malignant neoplasm, unspecified; I25.10 Atherosclerotic heart disease of native coronary artery without angina pectoris; K21.9 Gastro-esophageal reflux disease without esophagitis; Z99.81 Dependence on supplemental oxygen; E78.5 Hyperlipidemia, unspecified; Z87.442 Personal history of urinary calculi; I25.2 Old myocardial infarction; M19.90 Unspecified osteoarthritis, unspecified site; E66.9 Obesity, unspecified; Z68.35 Body mass index [BMI] 35.0-35.9, adult; E11.40 Type 2 diabetes mellitus with diabetic neuropathy, unspecified; Z95.5 Presence of coronary angioplasty implant and graft; Z87.891 Personal history of nicotine dependence; E11.22 Type 2 diabetes mellitus with diabetic chronic kidney disease; N18.9 Chronic kidney disease, unspecified; D63.1 Anemia in chronic kidney disease; I67.2 Cerebral atherosclerosis; I48.0 Paroxysmal atrial fibrillation; K31.9 Disease of stomach and duodenum, unspecified; Z91.14 Patient's other noncompliance with medication regimen; Z79.4 Long term (current) 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
CPT/HCPCS: 43239; 45385; 36415; 71045; 71275; 78278; 80048; 80061; 80076; 81001; 82272; 82803; 82947; 82962; 83880; 84484; 85007; 85014; 85018; 85025; 85048; 85049; 85378; 85610; 85730; 86850; 87070; 87077; 87186; 87205; 87486; 87581; 87632; 87798; 93005; 93306; 94640; 94760; 94761; 96365; 99284; A9512; A9560; C9803; G0328; J0456; J0696; P9016; Q9967; U0003; U0005

== ENCOUNTER → 2021-10-06 13:27 | Outpatient (CLI) | payer MEDICARE, SELFPAY ==
[2021-10-06 14:22] LABS: Anion Gap 15.2 mEq/L (5-15); Blood Urea Nitrogen 22 mg/dl (9-20); Calcium 8.8 mg/dl (8.4-10.2); Carbon Dioxide 26 mmol/L (22.0-30.0); Chloride 103 mmol/L (98-107); Estimated Glomerular Filt Rate 53 ml/min (>60); GFR (African American) 64 ML/MIN (>60); Glucose 211 mg/dl (74-100); Potassium 5.2 mmoL/L (3.5-5.1); Sodium 139 mmol/L (136-145)
== END ==
PROVIDERS: Visit Provider Physician Assistant
DX: D50.8 Other iron deficiency anemias (principal); E66.9 Obesity, unspecified; E78.2 Mixed hyperlipidemia; I11.0 Hypertensive heart disease with heart failure; I25.10 Atherosclerotic heart disease of native coronary artery without angina pectoris; I48.0 Paroxysmal atrial fibrillation; I50.32 Chronic diastolic (congestive) heart failure; I67.2 Cerebral atherosclerosis; N18.9 Chronic kidney disease, unspecified; R06.00 Dyspnea, unspecified; R94.31 Abnormal electrocardiogram [ECG] [EKG]; Z68.36 Body mass index [BMI] 36.0-36.9, adult
CPT/HCPCS: 36415; 80048

== ENCOUNTER → 2021-11-26 13:54 | Outpatient (CLI) | payer MEDICARE, SELFPAY ==
[2021-11-26 15:48] LABS: Anion Gap 18.1 mEq/L (5-15); Blood Urea Nitrogen 29 mg/dl (9-20); Calcium 9.2 mg/dl (8.4-10.2); Carbon Dioxide 25 mmol/L (22.0-30.0); Chloride 98 mmol/L (98-107); Estimated Glomerular Filt Rate 53 ml/min (>60); GFR (African American) 64 ML/MIN (>60); Glucose 351 mg/dl (74-100); Potassium 4.1 mmoL/L (3.5-5.1); Sodium 137 mmol/L (136-145)
[2021-11-26 15:57] LABS: NT Pro Brain Natriuretic Pep. 1020 pg/mL (0-450)
== END ==
PROVIDERS: Visit Provider Physician Assistant
DX: E66.9 Obesity, unspecified (principal); I25.10 Atherosclerotic heart disease of native coronary artery without angina pectoris; I48.0 Paroxysmal atrial fibrillation; I50.32 Chronic diastolic (congestive) heart failure; I67.2 Cerebral atherosclerosis; N18.9 Chronic kidney disease, unspecified; R06.00 Dyspnea, unspecified; R94.31 Abnormal electrocardiogram [ECG] [EKG]
CPT/HCPCS: 36415; 80048; 83880

== ENCOUNTER → 2021-11-26 21:03 | Outpatient (CLI) | payer MEDICARE, SELFPAY | PROVIDERS: PCP Family Medicine; Visit Provider Specialist | DX: G47.33 Obstructive sleep apnea (adult) (pediatric) (principal); G47.36 Sleep related hypoventilation in conditions classified elsewhere; G47.10 Hypersomnia, unspecified; I10 Essential (primary) hypertension; R06.09 Other forms of dyspnea | CPT/HCPCS: 36415; 80048; 83880; 95811 ==

== ENCOUNTER 2021-11-27 05:45 | Emergency (ER) | payer MEDICARE, SELFPAY ==
[2021-11-27 05:47] VITALS: BP 140/63; PULSE 75; RESP 16; TEMP 36.4; O2SAT 96; BMI 51.3
--- NOTE | 2021-11-27 06:02 | ECG_ITS ---
APPROVED REPORT Exam: Resting ECG HR:70 bpm ECG Measurements Heart Rate 70 AXES QRSd 142 QRS 95 QT 439 T 267 QTc 459 Conclusion ATRIAL FIBRILLATION BORDERLINE RIGHT AXIS DEVIATION [QRS AXIS > 90] INTRAVENTRICULAR CONDUCTION DELAY [130+ ms QRS DURATION] ABNORMAL ECG UNCONFIRMED REPORT Electronically signed by : Rom Brady MD 11/29/2021 20:16:47
[2021-11-27 06:08] LABS: ABG Base Excess -2.1 mmol/L (-2.4-2.3); ABG HCO3 22.7 mmhg (22.0-26.0); ABG Oxygen Saturation 95 % (90-100); ABG PCO2 37.9 mmhg (35.0-45.0); ABG PO2 82.1 mmhg (80-100); ABG TCO2 23.9 mmhg (23-27); Allen's Test Acceptable; Oxygen 3L NC %; Source Right Radial
[2021-11-27 06:10] VITALS: BMI 51.3
--- NOTE | 2021-11-27 06:10 | XR_ITS ---
FINAL REPORT CLINICAL HISTORY: fall FINDINGS: Mild cardiomegaly is noted. There has been prior median sternotomy. There are mild chronic changes in both lungs. There is no pleural effusion. There is no pneumothorax. The bony thorax is intact. IMPRESSION: No acute cardiopulmonary process. Reviewed, Interpreted and Dictated by Rogelio Wayne MD Transcribed by Michael Queen Authenticated by Rogelio Wayne MD on 11/27/2021 09:18:37 AM [facility]
--- NOTE | 2021-11-27 06:10 | CT_ITS ---
FINAL REPORT TECHNIQUE: Axial images were obtained of the cervical spine by computed tomography. Coronal and sagittal reconstruction process performed. This study was performed with techniques to keep radiation doses as low as reasonably achievable (ALARA). Individualized dose reduction techniques using automated exposure control or adjustment of mA and/or kV according to the patient''s size were employed. CLINICAL HISTORY: fall FINDINGS: Cervical vertebrae show normal height. There is moderate disc space narrowing at C3-C4, C5-C6, and C6-C7. There are posterior osteophytes eccentric to both the right and left at C3-C4, C5-C6, and C6-C7. There is no malalignment. The facets are properly aligned. IMPRESSION: No fracture. Reviewed, Interpreted and Dictated by Rogelio Wayne MD Transcribed by Michael Queen Authenticated by Rogelio Wayne MD on 11/27/2021 09:18:38 AM [facility]
--- NOTE | 2021-11-27 06:10 | CT_ITS ---
FINAL REPORT TECHNIQUE: Thin section axial CT images of the facial bones and sinuses were obtained without contrast. Coronal reformatted images were also obtained. This study was performed with techniques to keep radiation doses as low as reasonably achievable, (ALARA). Individualized dose reduction techniques using automated exposure control or adjustment of mA and/or kV according to the patient's size were employed. CLINICAL HISTORY: fall FINDINGS: CT FACIAL BONES/SINUSES W/O CONTRAST The paranasal sinuses are well aerated. The ostiomeatal units appear adequately patent. There is no fracture. There are no air-fluid levels. IMPRESSION: Unremarkable. Reviewed, Interpreted and Dictated by Rogelio Wayne MD Transcribed by Yeimi Mayer Authenticated by Rogelio Wayne MD on 11/27/2021 09:18:39 AM [facility]
--- NOTE | 2021-11-27 06:10 | XR_ITS ---
FINAL REPORT CLINICAL HISTORY: fall FINDINGS: 2 views of the left hip and an AP pelvis were obtained. There is no acute fracture or dislocation. There are mild hypertrophic changes at the lateral left acetabular margin. There has been prior right inguinal hernia repair. IMPRESSION: No acute process. Reviewed, Interpreted and Dictated by Rogelio Wayne MD Transcribed by Michael Queen Authenticated by Rogelio Wayne MD on 11/27/2021 09:18:36 AM [facility]
--- NOTE | 2021-11-27 06:22 | CT_ITS ---
FINAL REPORT TECHNIQUE: Axial CT images were performed through the head. Coronal reformatted images were submitted. This study was performed with techniques to keep radiation doses as low as reasonably achievable (ALARA). Individualized dose reduction techniques using automated exposure control or adjustment of mA and/or kV according to the patient's size were employed. CLINICAL HISTORY: fall FINDINGS: There is moderate diffuse cortical atrophy. 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 There is decreased attenuation throughout the deep white matter bilaterally. The ventricles are normal in size. There is no evidence of hemorrhage. There is no mass or edema identified. There is no abnormal extra-axial fluid seen. The sinuses are well aerated. IMPRESSION: No acute intracranial findings. Moderate atrophy. Changes of microvascular ischemia Reviewed, Interpreted and Dictated by Rogelio Wayne MD Transcribed by Yeimi Mayer Authenticated by Rogelio Wayne MD on 11/27/2021 09:18:[address] [facility]
[2021-11-27 06:24] LABS: Chloride 102 mmol/L (98-107); Potassium 4.2 mmoL/L (3.5-5.1); Sodium 135 mmol/L (136-145)
[2021-11-27 06:27] LABS: Alanine Aminotransferase 20 U/L (12-78); Albumin Level 3.7 g/dl (3.5-5.0); Albumin/Globulin Ratio 1.5 (1.1-1.8); Alkaline Phosphatase 119 U/L (38-126); Anion Gap 12.2 mEq/L (5-15); Aspartate Amino Transferase 27 U/L (17-59); Basophils # 0.1 K/mm3 (0-0.2); Basophils % 0.8 % (0.1-2.0); Bilirubin,Total 0.6 mg/dl (0.2-1.3); Blood Urea Nitrogen 25 mg/dl (9-20); Calcium 8.8 mg/dl (8.4-10.2); Carbon Dioxide 25 mmol/L (22.0-30.0); Creatinine Clearance Estimated 37 mL/min (50-200); Eosinophils # 0.2 K/mm3 (0.0-0.4); Eosinophils % 3.1 % (0.1-12.0); Estimated Glomerular Filt Rate 45 ml/min (>60); GFR (African American) 55 ML/MIN (>60); Globulin 2.4 g/dL (1.3-3.2); Hematocrit 30.1 % (42.0-52.0); Hemoglobin 9.1 g/dL (14.1-18.0); Lymphocytes # 1.6 K/mm3 (0.7-4.5); Lymphocytes % 23.3 % (10-50); Mean Corpuscular HGB Conc 30.1 g/dL (31.8-35.4); Mean Corpuscular Hemoglobin 22.2 pg (27.0-31.2); Mean Corpuscular Volume 73.8 fl (80-94); Mean Platelet Volume 7.9 fl (7.4-10.4); Monocytes # 0.4 K/mm3 (0.1-1.0); Neutrophils # 4.7 K/mm3 (1.8-7.8); Neutrophils % 66.9 % (37.0-80.0); Platelet Count 331 K/mm3 (142-424); Red Blood Count 4.08 M/mm3 (4.60-6.20); Red Cell Distribution Width 20.1 % (11.5-17.5); Total Protein,Serum 6.1 g/dl (6.3-8.2)
[2021-11-27 06:28] LABS: Glucose 478 mg/dl (74-100)
--- NOTE | 2021-11-27 07:17 | PC.NURSE ---
Went into patient's room and readjusted him in bed after he stated he was uncomfortable and his left hip was hurting. Turned patient onto right side and laid the head of the bead back. I asked the patient and his if they needed anything and they stated they did not.
[2021-11-27 07:31] VITALS: BP 148/87; PULSE 72; RESP 16; O2SAT 97
--- NOTE | 2021-11-27 07:41 | HMH.EDFALL ---
ED Disposition Clinical Impression: Renal insufficiency, Paroxysmal atrial fibrillation Fall Qualifiers: Encounter type: initial encounter Qualified Code(s): W19.XXXA - Unspecified fall, initial encounter Concussion without loss of consciousness Qualifiers: Encounter type: initial encounter Qualified Code(s): S06.0X0A - Concussion without loss of consciousness, initial encounter Contusion of hip, left Qualifiers: Encounter type: initial encounter Qualified Code(s): S70.02XA - Contusion of left hip, initial encounter Diabetes mellitus Qualifiers: Diabetes mellitus type: type 1 Diabetes mellitus complication status: with other specified complication Qualified Code(s): E10.69 - Type 1 diabetes mellitus with other specified complication Disposition: Home, Self-Care Condition on Discharge: Good Instructions: How to Prevent Falls Additional Instructions: see pcp for follow up Referrals: Andres Valencia MD [Primary Care Provider] - - Critical Care Critical Care Time: No Attestation: On 11/27/21, the high probability of a clinically significant, sudden or life threatening deterioration of the following system(s) required my full and direct attention, intervention and personal management. The time I documented below is in addition to time spent performing reported procedures but includes the following listed in this critical care notation. Medical Decision Making - Medical Records Medical records reviewed: Yes: I reviewed the patient's medical records. - Bill Inquiry Pt receiving controlled substance: No Vital Signs: 11/27/21 05:47 11/27/21 07:31 11/27/21 08:00 Temperature 97.6 F Temperature Source Oral Pulse Rate 72 74 Pulse Rate [Left] 75 Respiratory Rate 16 16 21 Blood Pressure 148/87 H 134/65 Blood Pressure [Right Arm] 140/63 Blood Pressure Mean 94 Blood Pressure Mean [Right Arm] 88 02 Sat by Pulse Oximetry 96 97 97 Oxygen Delivery Method Nasal Cannula Nasal Cannula Nasal Cannula Oxygen Flow Rate (LPM) 2 2 2 11/27/21 09:14 11/27/21 09:31 Temperature Temperature Source Pulse Rate 81 71 Pulse Rate [Left] Respiratory Rate 16 16 Blood Pressure 134/65 157/63 H Blood Pressure [Right Arm] Blood Pressure Mean 88 94 Blood Pressure Mean [Right Arm] 02 Sat by Pulse Oximetry 98 98 Oxygen Delivery Method Nasal Cannula Nasal Cannula Oxygen Flow Rate (LPM) 2 2 - Lab Data Lab results reviewed: Yes: I reviewed the patient's lab results. Lab Results 11/27/21 06:05: Specimen Source Right radial, O2 % 3l nc, ABG pH 7.40, ABG pCO2 37.9, ABG pO2 82.1, ABG HCO3 22.7, ABG Total CO2 23.9, ABG O2 Saturation 95, ABG Base Excess -2.1, Massimo Test Acceptable 11/27/21 06:13: WBC 7.0, RBC 4.08 L, Hgb 9.1 L, Hct 30.1 L, MCV 73.8 L, MCH 22.2 L, MCHC 30.1 L, RDW 20.1 H, Plt Count 331, MPV 7.9, Neut % (Auto) 66.9, Lymph % (Auto) 23.3, [place] % (Auto) 6.0, Eos % (Auto) 3.1, Baso % (Auto) 0.8, Neut # (Auto) 4.7, Lymph # (Auto) 1.6, [place] # (Auto) 0.4, Eos # (Auto) 0.2, Baso # (Auto) 0.1 11/27/21 06:13: Sodium 135 L, Potassium 4.2, Chloride 102, Carbon Dioxide 25, Anion Gap 12.2, BUN 25 H, Creatinine 1.50 H, Estimated Creat Clear 37, Estimated GFR 45 L, Est GFR ( Amer) 55 L, Glucose 478 H* D, Calcium 8.8, Total Bilirubin 0.6, AST 27, ALT 20, Alkaline Phosphatase 119, Total Protein 6.1 L, Albumin 3.7, Globulin 2.4, Albumin/Globulin Ratio 1.5 11/27/21 07:52: Urine Color Yellow, Urine Appearance Clear, Urine pH 6.0, Ur Specific [place] 1.010, Urine Protein 1+, Urine Glucose (UA) 3+, Urine Ketones Negative, Urine Blood Trace-i, Urine Nitrate Negative, Urine Bilirubin Negative, Urine Urobilinogen 0.2, Ur Leukocyte Esterase Negative, Urine RBC 3-5, Urine WBC 3-5, Ur Squamous Epith Cells Occasional, Urine Bacteria None Result diagrams: 11/27/21 06:13 11/27/21 06:13 Orders (Tests/Meds): ORDERS Category Date Time Status Arterial Blood Gas Stat RT 11/27/21 06:16 Ordered - Radiology Data #
--- NOTE | 2021-11-27 07:43 | PC.NURSE ---
Went into room with Emmie IBARRA to help situate patient. Patient had urinated on himself so we got him new covers and got him cleaned up. Patient's clothes are in a patient belonging's bag. Patient was cleaned up and provided a new gown. Patient's stated she was cold so we grabbed her a warm blanket.
[2021-11-27 08:00] VITALS: BP 134/65; PULSE 74; RESP 21; O2SAT 97
[2021-11-27 08:05] LABS: Microscopic, Urine URINE MICROSCOPIC (MICROSCOPIC)
[2021-11-27 08:06] LABS: Appearance,Urine CLEAR (Clear); Bilirubin,Urine Negative (Negative); Blood, Urine TRACE-I (Negative); Color,Urine YELLOW (Yellow); Glucose,Urine (UA) 3+ (Negative); Ketones,Urine Negative (Negative); Leukocyte Esterase,Urine Negative (Negative); Nitrate,Urine Negative (Negative); Protein,Urine 1+ (Negative); Urobilinogen,Urine 0.2 EU/dl (0.2)
[2021-11-27 08:20] LABS: Squamous Epithelial Cell,Urine Occasional #/hpf (0-5)
--- NOTE | 2021-11-27 08:38 | PC.NURSE ---
contacted radiology to check on status of pt results of CTs and xrays. Spoke with Sotero, states she will check on them .
--- NOTE | 2021-11-27 09:10 | PC.NURSE ---
Called radiology for an update of scans. i&c tech stated they were in prelim. and that they would call to have them push the results through.
[2021-11-27 09:14] VITALS: BP 134/65; PULSE 81; RESP 16; O2SAT 98
--- NOTE | 2021-11-27 09:14 | PC.NURSE ---
Went into patient's room to readjust patient.
[2021-11-27 09:31] VITALS: BP 157/63; PULSE 71; RESP 16; O2SAT 98
--- NOTE | 2021-11-27 09:51 | PC.NURSE ---
waiting distribution associate back from dr. wisdom, office staff state he is in a room
[2021-11-27 10:40] VITALS: BP 157/63; PULSE 71; RESP 16; TEMP 36.4; O2SAT 98
== END 2021-11-27 10:40 | disposition home or self-care (01) ==
PROVIDERS: Emergency Provider Emergency Medicine; PCP Family Medicine
DX: S06.0X0A Concussion without loss of consciousness, initial encounter (principal); S70.02XA Contusion of left hip, initial encounter; E10.69 Type 1 diabetes mellitus with other specified complication; I48.91 Unspecified atrial fibrillation; W01.0XXA Fall on same level from slipping, tripping and stumbling without subsequent striking against object, initial encounter; I10 Essential (primary) hypertension; I25.2 Old myocardial infarction; Z79.899 Other long term (current) drug therapy; Y92.538 Other ambulatory health services establishments as the place of occurrence of the external cause; I50.9 Heart failure, unspecified; N28.9 Disorder of kidney and ureter, unspecified; J44.9 Chronic obstructive pulmonary disease, unspecified; I25.10 Atherosclerotic heart disease of native coronary artery without angina pectoris; E78.5 Hyperlipidemia, unspecified; Z88.6 Allergy status to analgesic agent; Z88.2 Allergy status to sulfonamides
CPT/HCPCS: 70450; 70486; 71045; 72125; 73502; 80053; 81001; 82803; 85025; 93005; 99285

== ENCOUNTER 2021-11-29 22:11 | Emergency (ER) | payer MEDICARE, SELFPAY ==
[2021-11-29 22:13] VITALS: BP 164/65; PULSE 76; RESP 18; TEMP 36.8; O2SAT 92; BMI 34.4
--- NOTE | 2021-11-29 22:34 | CT_ITS ---
PROCEDURE INFORMATION: Exam: CT Thoracic Spine Without Contrast Exam date and time: 11/29/2021 11:56 PM Age: 81 years old Clinical indication: Pain in thoracic spine; Without myelpathy or radiculopathy; Additional info: Prior fall spasm and pain in thoracic spine area TECHNIQUE: Imaging protocol: Computed tomography images of the thoracic spine without contrast. Radiation optimization: All CT scans at this facility use at least one of these dose optimization techniques: automated exposure control; mA and/or kV adjustment per patient size (includes targeted exams where dose is matched to clinical indication); or iterative reconstruction. COMPARISON: CT CERVICAL SPINE WO CON 11/27/2021 6:25 AM FINDINGS: Vertebrae: No acute fracture. Normal alignment. T1-T2: No significant disc protrusion. No severe spinal canal stenosis. No significant neural foraminal narrowing. T2-T3: No significant disc protrusion. No severe spinal canal stenosis. No significant neural foraminal narrowing. T3-T4: No significant disc protrusion. No severe spinal canal stenosis. No significant neural foraminal narrowing. T4-T5: No significant disc protrusion. No severe spinal canal stenosis. No significant neural foraminal narrowing. T5-T6: No significant disc protrusion. No severe spinal canal stenosis. No significant neural foraminal narrowing. T6-T7: No significant disc protrusion. No severe spinal canal stenosis. No significant neural foraminal narrowing. T7-T8: No significant disc protrusion. No severe spinal canal stenosis. No significant neural foraminal narrowing. T8-T9: No significant disc protrusion. No severe spinal canal stenosis. No significant neural foraminal narrowing. T9-T10: No significant disc protrusion. No severe spinal canal stenosis. No significant neural foraminal narrowing. T10-T11: No significant disc protrusion. No severe spinal canal stenosis. No significant neural foraminal narrowing. T11-T12: No significant disc protrusion. No severe spinal canal stenosis. No significant neural foraminal narrowing. T12-L1: No significant disc protrusion. No severe spinal canal stenosis. No significant neural foraminal narrowing. IMPRESSION: Unremarkable thoracic spine.
--- NOTE | 2021-11-29 22:34 | CT_ITS ---
PROCEDURE INFORMATION: Exam: CT Lumbar Spine Without Contrast Exam date and time: 11/29/2021 11:59 PM Age: 81 years old Clinical indication: Low back pain; Additional info: Prior fall spasm and pain in lumbar spine area TECHNIQUE: Imaging protocol: Computed tomography images of the lumbar spine without contrast. Radiation optimization: All CT scans at this facility use at least one of these dose optimization techniques: automated exposure control; mA and/or kV adjustment per patient size (includes targeted exams where dose is matched to clinical indication); or iterative reconstruction. COMPARISON: CT LUMBAR SPINE WO CON 10/11/2020 8:53 PM FINDINGS: Vertebrae: No acute fracture. Normal alignment. L1-L2: No significant disc protrusion. No severe spinal canal stenosis. No significant neural foraminal narrowing. L2-L3: No significant disc protrusion. No severe spinal canal stenosis. No significant neural foraminal narrowing. L3-L4: No significant disc protrusion. No severe spinal canal stenosis. No significant neural foraminal narrowing. L4-L5: No significant disc protrusion. No severe spinal canal stenosis. No significant neural foraminal narrowing. L5-S1: No significant disc protrusion. No severe spinal canal stenosis. No significant neural foraminal narrowing. Vasculature: There is severe aortoiliac atherosclerosis and a stent in the right external iliac artery. Soft tissues: Unremarkable. IMPRESSION: No acute lumbar spine injury.
[2021-11-29 22:40] LABS: Chloride 102 mmol/L (98-107); Potassium 4.2 mmoL/L (3.5-5.1); Sodium 135 mmol/L (136-145)
[2021-11-29 22:43] LABS: Alanine Aminotransferase 19 U/L (12-78); Albumin Level 3.7 g/dl (3.5-5.0); Albumin/Globulin Ratio 1.4 (1.1-1.8); Alkaline Phosphatase 111 U/L (38-126); Anion Gap 12.2 mEq/L (5-15); Aspartate Amino Transferase 31 U/L (17-59); Bilirubin,Total 0.6 mg/dl (0.2-1.3); Blood Urea Nitrogen 33 mg/dl (9-20); Carbon Dioxide 25 mmol/L (22.0-30.0); Creatinine Clearance Estimated 50 mL/min (50-200); Estimated Glomerular Filt Rate 39 ml/min (>60); GFR (African American) 47 ML/MIN (>60); Globulin 2.6 g/dL (1.3-3.2); Total Protein,Serum 6.3 g/dl (6.3-8.2)
[2021-11-29 22:44] LABS: Calcium 8.7 mg/dl (8.4-10.2)
[2021-11-29 22:47] LABS: Basophils % 0.5 % (0.1-2.0); Eosinophils # 0.3 K/mm3 (0.0-0.4); Eosinophils % 3.2 % (0.1-12.0); Hematocrit 30.5 % (42.0-52.0); Hemoglobin 9.4 g/dL (14.1-18.0); Lymphocytes % 10.9 % (10-50); Mean Corpuscular HGB Conc 30.8 g/dL (31.8-35.4); Mean Corpuscular Hemoglobin 22.7 pg (27.0-31.2); Mean Corpuscular Volume 73.7 fl (80-94); Mean Platelet Volume 8.1 fl (7.4-10.4); Monocytes # 0.5 K/mm3 (0.1-1.0); Monocytes % 4.8 % (1.7-9.3); Neutrophils # 7.5 K/mm3 (1.8-7.8); Neutrophils % 80.6 % (37.0-80.0); Platelet Count 310 K/mm3 (142-424); Red Blood Count 4.14 M/mm3 (4.60-6.20); Red Cell Distribution Width 20.2 % (11.5-17.5); White Blood Count 9.3 K/mm3 (4.8-10.8)
[2021-11-29 22:48] LABS: Glucose 420 mg/dl (74-100)
[2021-11-29 22:49] LABS: C-Reactive Protein 47.3 mg/L (0-4)
[2021-11-29 22:50] LABS: Microscopic, Urine URINE MICROSCOPIC (MICROSCOPIC)
[2021-11-29 22:55] LABS: Appearance,Urine CLEAR (Clear); Bilirubin,Urine Negative (Negative); Blood, Urine Negative (Negative); Color,Urine YELLOW (Yellow); Glucose,Urine (UA) 3+ (Negative); Ketones,Urine Negative (Negative); Leukocyte Esterase,Urine Negative (Negative); Nitrate,Urine Negative (Negative); Protein,Urine Negative (Negative); Urobilinogen,Urine 0.2 EU/dl (0.2)
[2021-11-29 23:01] LABS: Amorphous Sediment,Urine Trace /lpf
[2021-11-29 23:02] LABS: Squamous Epithelial Cell,Urine Occasional #/hpf (0-5)
[2021-11-29 23:12] LABS: Erythrocyte Sedimentation Rate 88 mm/hr (0-20)
[2021-11-29 23:22] LABS: Procalcitonin 0.297 ng/mL (0.0-2.0)
--- NOTE | 2021-11-29 23:43 | PC.NURSE ---
Critical bg of 420 called by Noel in lab. notified.
[2021-11-30] VITALS (8 sets, daily range): BP systolic 127–146; BP diastolic 45–59; PULSE 72–84; RESP 17; TEMP 36.7; O2SAT 89–97
--- NOTE | 2021-11-30 02:02 | HMH.EDBACK ---
ED Disposition Clinical Impression: Hip pain, left Strain of lumbar region Qualifiers: Encounter type: initial encounter Qualified Code(s): S39.012A - Strain of muscle, fascia and tendon of lower back, initial encounter Thoracic compression fracture Qualifiers: Encounter type: initial encounter Thoracic vertebra fracture level: T12 Qualified Code(s): S22.080A - Wedge compression fracture of T11-T12 vertebra, initial encounter for closed fracture Disposition: Home, Self-Care Condition on Discharge: Good Instructions: DI for Low Back Pain Additional Instructions: see pcp this week for follow up Referrals: Andres Valencia MD [Primary Care Provider] - - Critical Care Critical Care Time: No Attestation: On 11/29/21, the high probability of a clinically significant, sudden or life threatening deterioration of the following system(s) required my full and direct attention, intervention and personal management. The time I documented below is in addition to time spent performing reported procedures but includes the following listed in this critical care notation. Medical Decision Making - Medical Records Medical records reviewed: Yes: I reviewed the patient's medical records. - Bill Inquiry Pt receiving controlled substance: No Vital Signs: 11/29/21 22:13 11/30/21 00:07 11/30/21 00:31 Temperature 98.2 F Temperature Source Oral Pulse Rate 79 78 Pulse Rate [Apical] 76 Respiratory Rate 18 Blood Pressure 145/46 H 146/47 H Blood Pressure [Right Arm] 164/65 H Blood Pressure Mean Blood Pressure Mean [Right Arm] 98 Blood Pressure Source [Right Arm] Automatic Cuff Blood Pressure Position [Right Arm] Sitting 02 Sat by Pulse Oximetry 92 L 90 L 97 Oxygen Delivery Method Room Air Room Air Nasal Cannula Oxygen Flow Rate (LPM) 3 11/30/21 01:15 11/30/21 01:31 11/30/21 02:52 Temperature Temperature Source Pulse Rate 72 78 83 Pulse Rate [Apical] Respiratory Rate Blood Pressure 137/46 L 138/45 L 142/49 H Blood Pressure [Right Arm] Blood Pressure Mean Blood Pressure Mean [Right Arm] Blood Pressure Source [Right Arm] Blood Pressure Position [Right Arm] 02 Sat by Pulse Oximetry 97 97 89 L Oxygen Delivery Method Nasal Cannula Nasal Cannula Nasal Cannula Oxygen Flow Rate (LPM) 3 3 3 11/30/21 03:01 11/30/21 03:31 Temperature Temperature Source Pulse Rate 80 Pulse Rate [Apical] Respiratory Rate Blood Pressure 141/59 H 144/52 H Blood Pressure [Right Arm] Blood Pressure Mean 82 Blood Pressure Mean [Right Arm] Blood Pressure Source [Right Arm] Blood Pressure Position [Right Arm] 02 Sat by Pulse Oximetry 95 94 L Oxygen Delivery Method Nasal Cannula Nasal Cannula Oxygen Flow Rate (LPM) 3 3 - Lab Data Lab results reviewed: Yes: I reviewed the patient's lab results. Lab Results 11/29/21 22:10: WBC 9.3 D, RBC 4.14 L, Hgb 9.4 L, Hct 30.5 L, MCV 73.7 L, MCH 22.7 L, MCHC 30.8 L, RDW 20.2 H, Plt Count 310, MPV 8.1, Neut % (Auto) 80.6 H, Lymph % (Auto) 10.9, [place] % (Auto) 4.8, Eos % (Auto) 3.2, Baso % (Auto) 0.5, Neut # (Auto) 7.5, Lymph # (Auto) 1.0, [place] # (Auto) 0.5, Eos # (Auto) 0.3, Baso # (Auto) 0.0, ESR 88 H 11/29/21 22:10: Sodium 135 L, Potassium 4.2, Chloride 102, Carbon Dioxide 25, Anion Gap 12.2, BUN 33 H D, Creatinine 1.70 H, Estimated Creat Clear 50, Estimated GFR 39 L, Est GFR ( Amer) 47 L, Glucose 420 H*, Calcium 8.7, Total Bilirubin 0.6, AST 31, ALT 19, Alkaline Phosphatase 111, C-Reactive Protein 47.3 H, Total Protein 6.3, Albumin 3.7, Globulin 2.6, Albumin/Globulin Ratio 1.4, Procalcitonin 0.297 11/29/21 22:45: Urine Color Yellow, Urine Appearance Clear, Urine pH 6.0, Ur Specific [place] 1.010, Urine Protein Negative, Urine Glucose (UA) 3+, Urine Ketones Negative, Urine Blood Negative, Urine Nitrate Negative, Urine Bilirubin Negative, Urine Urobilinogen 0.2, Ur Leukocyte Esterase Negative, Ur Squamous Epith Cells Occasional, Amorphous Sedi
--- NOTE | 2021-11-30 02:24 | CT_ITS ---
PROCEDURE INFORMATION: Exam: CT Left Lower Extremity Without Contrast, Hip Exam date and time: 11/30/2021 2:42 AM Age: 81 years old Clinical indication: Injury or trauma; Fall; Blunt trauma; Hip; Left; Additional info: Left hip pain recent fall TECHNIQUE: Imaging protocol: CT of the Left lower extremity without contrast was performed. Exam focused on the hip. Radiation optimization: All CT scans at this facility use at least one of these dose optimization techniques: automated exposure control; mA and/or kV adjustment per patient size (includes targeted exams where dose is matched to clinical indication); or iterative reconstruction. COMPARISON: CR XR HIP LT 2-3V W/PELVIS 11/27/2021 6:34 AM FINDINGS: Bones/joints: Normal alignment. No acute fractures. Soft tissues: There is mild soft tissue swelling overlying the greater trochanter but no focal hematoma. IMPRESSION: No acute bony injury.
== END 2021-11-30 04:11 | disposition home or self-care (01) ==
PROVIDERS: Emergency Provider Emergency Medicine; PCP Family Medicine
DX: S39.012A Strain of muscle, fascia and tendon of lower back, initial encounter (principal); S22.080A Wedge compression fracture of T11-T12 vertebra, initial encounter for closed fracture; E11.65 Type 2 diabetes mellitus with hyperglycemia; W01.0XXA Fall on same level from slipping, tripping and stumbling without subsequent striking against object, initial encounter; Y92.019 Unspecified place in single-family (private) house as the place of occurrence of the external cause; I48.0 Paroxysmal atrial fibrillation; J44.9 Chronic obstructive pulmonary disease, unspecified; I50.9 Heart failure, unspecified; K21.9 Gastro-esophageal reflux disease without esophagitis; E78.5 Hyperlipidemia, unspecified; I10 Essential (primary) hypertension; Z87.891 Personal history of nicotine dependence; Z79.899 Other long term (current) drug therapy
CPT/HCPCS: 72128; 72131; 73700; 80053; 81001; 84145; 85025; 85651; 86140; 96374; 96375; 99284

== ENCOUNTER → 2021-12-10 13:49 | Outpatient (CLI) | payer MEDICARE, SELFPAY ==
[2021-12-10 15:27] LABS: Prostate Specific Ag, Diagnost < 0.064 ng/ml (0.0-4.0)
== END ==
PROVIDERS: PCP Family Medicine; Visit Provider Urology
DX: C61 Malignant neoplasm of prostate (principal)
CPT/HCPCS: 36415; 84153

== ENCOUNTER → 2021-12-21 16:57 | Outpatient (CLI) | payer MEDICARE, SELFPAY ==
[2021-12-21 18:43] LABS: Hemoglobin A1C 8.8 % (4.0-6.0)
== END ==
PROVIDERS: Visit Provider Family Medicine
DX: E11.9 Type 2 diabetes mellitus without complications (principal); Z79.4 Long term (current) 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
CPT/HCPCS: 83036

== ENCOUNTER 2022-01-04 15:41 | Observation (INO) | payer MEDICARE, SELFPAY ==
[2022-01-04] VITALS (10 sets, daily range): BP systolic 138–172; BP diastolic 48–98; PULSE 65–89; RESP 20–26; TEMP 36.6–36.9; O2SAT 93–99; BMI 31.3; BMI 37.4; BMI 37.7
--- NOTE | 2022-01-04 15:38 | ECG_ITS ---
APPROVED REPORT Exam: Resting ECG HR:76 bpm ECG Measurements Heart Rate 76 AXES QRSd 138 QRS 31 QT 377 T 127 QTc 408 Conclusion UNCERTAIN REGULAR RHYTHM LEFT BUNDLE BRANCH BLOCK [120+ ms QRS DURATION, 80+ ms Q/S IN V1/V2, 85+ ms R IN I/aVL/V5/V6] ABNORMAL ECG UNCONFIRMED REPORT Electronically signed by : Rom Brady MD 01/05/2022 18:41:50
--- NOTE | 2022-01-04 15:43 | XR_ITS ---
FINAL REPORT CLINICAL HISTORY: short of breath COMPARISON: November 27, 2021 FINDINGS: Cardiomegaly is noted. Postoperative changes are seen from median sternotomy. There is worsening bibasilar opacities which may represent atelectasis or pneumonia. There is no pneumothorax. The bony thorax is intact. IMPRESSION: Worsening bibasilar opacities, atelectasis or pneumonia. Reviewed, Interpreted and Dictated by Marco Antonio Griffiths III, MD Transcribed by Yeimi Mayer Authenticated and [facility]
--- NOTE | 2022-01-04 16:34 | PC.NURSE ---
Attempted IV stick unable success. US IV attempted by other staff nurse, unsuccessful at this time.
--- NOTE | 2022-01-04 16:35 | PC.NURSE ---
at attempting IV US and blood draw
[2022-01-04 16:49] LABS: Coronavirus 19, PCR Not Detected (NotDetected); Influenza A, PCR Not Detected (NotDetected); Influenza B, PCR Not Detected (NotDetected)
--- NOTE | 2022-01-04 17:00 | PC.NURSE ---
hussein forbes going to room to attempt IV access. ER MD was unsuccessful
--- NOTE | 2022-01-04 17:06 | HMH.EDGENADL ---
ED Disposition Clinical Impression: COPD exacerbation Respiratory failure with hypoxia Qualifiers: Chronicity: acute on chronic Qualified Code(s): J96.21 - Acute and chronic respiratory failure with hypoxia Anemia Qualifiers: Anemia type: unspecified type Qualified Code(s): D64.9 - Anemia, unspecified Disposition: Admitted As Inpatient Condition on Discharge: Fair Referrals: Andres Valencia MD [Primary Care Provider] - Time of Disposition: 18:15 - Critical Care Critical Care Time: No Attestation: On 01/04/22, the high probability of a clinically significant, sudden or life threatening deterioration of the following system(s) required my full and direct attention, intervention and personal management. The time I documented below is in addition to time spent performing reported procedures but includes the following listed in this critical care notation. Medical Decision Making - Medical Records Medical records reviewed: Yes: I reviewed the patient's medical records. - Bill Inquiry Pt receiving controlled substance: No Vital Signs: 01/04/22 15:42 01/04/22 16:30 01/04/22 17:23 Temperature 97.9 F Temperature Source Oral Pulse Rate 73 73 Pulse Rate [Radial] 74 Respiratory Rate 26 H 26 H 21 Blood Pressure 146/48 H Blood Pressure [Right Arm] 138/58 L Blood Pressure Mean [Right Arm] 84 Blood Pressure Position [Right Arm] Sitting 02 Sat by Pulse Oximetry 94 L 97 97 Oxygen Delivery Method Nasal Cannula Oxygen Flow Rate (LPM) 4 01/04/22 17:31 Temperature Temperature Source Pulse Rate 68 Pulse Rate [Radial] Respiratory Rate 25 H Blood Pressure 147/58 H Blood Pressure [Right Arm] Blood Pressure Mean [Right Arm] Blood Pressure Position [Right Arm] 02 Sat by Pulse Oximetry 99 Oxygen Delivery Method Oxygen Flow Rate (LPM) - Lab Data Lab Results 01/04/22 15:43: VBG pH 7.32, VBG pCO2 46.6, VBG pO2 55.6 H, VBG HCO3 23.5, VBG Total CO2 24.9, VBG O2 Saturation 83.9 H, VBG Base Excess -2.6 L 01/04/22 15:43: SARS-CoV-2 (PCR) Not detected, Influenza A Untype (PCR) Not detected, Influenza Type B (PCR) Not detected 01/04/22 17:17: WBC 10.1, RBC 3.37 L, Hgb 7.0 L, Hct 22.9 L, MCV 67.8 L, MCH 20.7 L, MCHC 30.5 L, RDW 18.6 H, Plt Count 339, MPV 8.4, Neut % (Auto) 82.2 H, Lymph % (Auto) 9.4 L, [place] % (Auto) 6.0, Eos % (Auto) 2.0, Baso % (Auto) 0.5, Neut # (Auto) 8.3 H, Lymph # (Auto) 1.0, [place] # (Auto) 0.6, Eos # (Auto) 0.2, Baso # (Auto) 0.1 01/04/22 17:17: Sodium 142, Potassium 4.6, Chloride 110 H, Carbon Dioxide 24, Anion Gap 12.6, BUN 22 H, Creatinine 1.40 H, Estimated Creat Clear 55, Estimated GFR 49 L, Est GFR ( Amer) 59, Glucose 178 H, Calcium 8.5, Total Bilirubin 0.3, AST 28, ALT 15, Alkaline Phosphatase 150 H, Troponin I 0.01, NT-Pro-B Natriuret Pep 2780 H, Total Protein 6.2 L, Albumin 3.6, Globulin 2.6, Albumin/Globulin Ratio 1.4 01/04/22 17:45: Lactate 1.4 Result diagrams: 01/04/22 17:17 01/04/22 17:17 Orders (Tests/Meds): ED MEDICATIONS Generic Name Dose Route Start Last Admin Trade Name Freq PRN Reason Stop Dose Admin Azithromycin 500 mg/ Sodium 250 mls @ 250 mls/hr 01/04/22 18:00 Chloride IV 01/18/22 17:59 Q24H MARYAN Ceftriaxone Sodium 1 gm/ 50 mls @ 100 mls/hr 01/04/22 18:00 01/04/22 18:02 Sodium Chloride IV 01/18/22 17:59 100 mls/hr Q24H MARYAN Administration Discontinued Medications Generic Name Dose Route Start Last Admin Trade Name Freq PRN Reason Stop Dose Admin Albuterol/Ipratropium 3 ml 01/04/22 17:49 Ipratropium/Albuterol 3 Ml Neb IH 01/04/22 17:50 ONCE ONE Methylprednisolone Sodium Succinate 125 mg 01/04/22 17:48 01/04/22 18:02 Methylprednisolone Sod Succ 125mg Vial IV 01/04/22 17:49 125 mg ONCE ONE Administration ORDERS Category Date Time Status Troponin I Q3H Lab 01/04/22 18:45 Ordered Troponin I Q3H Lab 01/04/22 21:45 Ordered Blood Culture Stat Micro 01/04/22 17:45 Received - ECG
--- NOTE | 2022-01-04 17:22 | PC.NURSE ---
notified RT of vbg order
--- NOTE | 2022-01-04 17:22 | PC.NURSE ---
notified ER of xray results in computer
[2022-01-04 17:30] LABS: Basophils # 0.1 K/mm3 (0-0.2); Basophils % 0.5 % (0.1-2.0); Eosinophils # 0.2 K/mm3 (0.0-0.4); Hematocrit 22.9 % (42.0-52.0); Lymphocytes % 9.4 % (10-50); Mean Corpuscular HGB Conc 30.5 g/dL (31.8-35.4); Mean Corpuscular Hemoglobin 20.7 pg (27.0-31.2); Mean Corpuscular Volume 67.8 fl (80-94); Mean Platelet Volume 8.4 fl (7.4-10.4); Monocytes # 0.6 K/mm3 (0.1-1.0); Neutrophils # 8.3 K/mm3 (1.8-7.8); Neutrophils % 82.2 % (37.0-80.0); Platelet Count 339 K/mm3 (142-424); Red Blood Count 3.37 M/mm3 (4.60-6.20); Red Cell Distribution Width 18.6 % (11.5-17.5); White Blood Count 10.1 K/mm3 (4.8-10.8)
--- NOTE | 2022-01-04 17:36 | PC.NURSE ---
lab at to collect blood cultures and lactic acid
[2022-01-04 17:44] LABS: Alanine Aminotransferase 15 U/L (12-78); Albumin Level 3.6 g/dl (3.5-5.0); Albumin/Globulin Ratio 1.4 (1.1-1.8); Alkaline Phosphatase 150 U/L (38-126); Anion Gap 12.6 mEq/L (5-15); Aspartate Amino Transferase 28 U/L (17-59); Bilirubin,Total 0.3 mg/dl (0.2-1.3); Blood Urea Nitrogen 22 mg/dl (9-20); Calcium 8.5 mg/dl (8.4-10.2); Carbon Dioxide 24 mmol/L (22.0-30.0); Chloride 110 mmol/L (98-107); Creatinine Clearance Estimated 55 mL/min (50-200); Estimated Glomerular Filt Rate 49 ml/min (>60); GFR (African American) 59 ML/MIN (>60); Globulin 2.6 g/dL (1.3-3.2); Glucose 178 mg/dl (74-100); Potassium 4.6 mmoL/L (3.5-5.1); Sodium 142 mmol/L (136-145); Total Protein,Serum 6.2 g/dl (6.3-8.2)
[2022-01-04 17:56] LABS: NT Pro Brain Natriuretic Pep. 2780 pg/mL (0-450)
[2022-01-04 17:57] LABS: VBG Base Excess -2.6 mmol/L (-2.4-2.3); VBG HCO3 23.5 mmol/L (23-30); VBG Oxygen Saturation 83.9 % (50-70); VBG PCO2 46.6 mmol/L (35-51); VBG PH 7.32 mmol/L (7.31-7.41); VBG PO2 55.6 mmol/L (28-40); VBG Total CO2 24.9 mmol/L (23-27)
[2022-01-04 17:59] LABS: Troponin I 0.01 ng/ml (0.00-0.034)
[2022-01-04 18:07] LABS: Lactic Acid 1.4 mmol/L (0.7-2.1)
--- NOTE | 2022-01-04 18:39 | PC.NURSE ---
called dietary to get a low sodium tray for pt
--- NOTE | 2022-01-04 18:44 | PC.NURSE ---
respiratory notified of duoneb needed for pt
--- NOTE | 2022-01-04 18:52 | PC.NURSE ---
[facility]
--- NOTE | 2022-01-04 18:53 | PC.NURSE ---
ATTEMPTED TO CALL REPORT TO FLOOR
[2022-01-04 20:14] LABS: Troponin I 0.02 ng/ml (0.00-0.034)
--- NOTE | 2022-01-04 20:31 | PC.NURSE ---
pt arrived to floor via stretcher at this time
--- NOTE | 2022-01-04 21:08 | P.CONPHA_ITS ---
[facility] Pharmacy VTE Monitoring - Patient Demographics Admission date: 01/04/22 Report Date: 01/04/22 Time: 21:08 Allergies/Adverse Reactions: Patient Allergies oxycodone Allergy (Intermediate, Verified 12/10/21 13:28) I-RASH Sulfa (Sulfonamide Antibiotics) Allergy (Unknown, Verified 12/10/21 13:28) Height: 1.7 m Weight: 90.718 kg Patient Problems: Current Active Problems Anemia (Acute) COPD exacerbation (Acute) Respiratory failure with hypoxia (Acute) - VTE Risk Labs: VTE Related Lab Results Hgb 7.0 g/dL (14.1-18.0) L 01/04/22 17:17 Hct 22.9 % (42.0-52.0) L 01/04/22 17:17 Plt Count 339 K/mm3 (142-424) 01/04/22 17:17 BUN 22 mg/dl (9-20) H 01/04/22 17:17 Creatinine 1.40 mg/dl (0.66-1.25) H 01/04/22 17:17 Estimated Creat Clear 55 mL/min (50-200) 01/04/22 17:17 - Prophylaxis VTE Prophylaxis Ordered?: Yes Types of VTE Prophylaxis: TEDS Knee High Location of Applied Device: Bilateral Lower Extremeties
[2022-01-05] VITALS (8 sets, daily range): BP systolic 142–196; BP diastolic 64–76; PULSE 70–100; RESP 18–22; TEMP 36.6–36.8; O2SAT 93–98; BMI 37.3
--- NOTE | 2022-01-05 04:09 | ECG_ITS ---
APPROVED REPORT Exam: Resting ECG HR:64 bpm ECG Measurements Heart Rate 64 AXES ME 104 P 58 QRSd 138 QRS 38 QT 445 T 174 QTc 455 Conclusion SINUS RHYTHM WITH SHORT ME INTERVAL INTRAVENTRICULAR CONDUCTION DELAY [130+ ms QRS DURATION] ABNORMAL ECG UNCONFIRMED REPORT Electronically signed by : Rom Brady MD 01/05/2022 18:40:42
--- NOTE | 2022-01-05 05:28 | PC.NURSE ---
Addendum entered by Thuy Duval RN 01/05/22 05:42: While pt was c/o SOA, pt continuously tried to breathe through his mouth despite encouragment to take deep breaths through his nose. RT notified and placed a venturi mask on pt at 30% 6L. Pt tolerating well with sats > 93%. Original Note: Pt a + o x4. Pt c/o SOA after arriving to floor. O2 sat read 93% on 4 L nc. Pt was repositioned and encouraged to take deep breaths through his nose. Pt continued to complain saying I dont care what your machine says, I cant breathe. Fine crackles heard in bilateral bases. 2+ edema BLE. MD contractor general building notified. Orders to give 80mg Lasix IV read back, verified, and carried out. Pt states favorable results and has had 2020 ml of urine output thus far. Later on pt c/o constant medial chest pain that was radiating to both shoulders and to his back that he rated 8/10. EKG performed, read by ER MD as no acute changes. MD contractor general building notified. Orders to retrieve STAT troponin, order a cardiology consult, and give 0.4mg Nitroglycerin SL tabs q5 mins PRN verified, read back, and carried out. Pt refusing to take nitroglycerin tabs at this time but does state chest pain is now gone. No other complaints voiced to staff. Call light within reach.
[2022-01-05 05:42] LABS: Basophils % 0.1 % (0.1-2.0); Eosinophils % 0.1 % (0.1-12.0); Hematocrit 23.3 % (42.0-52.0); Hemoglobin 7.1 g/dL (14.1-18.0); Lymphocytes # 0.5 K/mm3 (0.7-4.5); Lymphocytes % 5.8 % (10-50); Mean Corpuscular HGB Conc 30.2 g/dL (31.8-35.4); Mean Corpuscular Hemoglobin 20.7 pg (27.0-31.2); Mean Corpuscular Volume 68.5 fl (80-94); Mean Platelet Volume 7.7 fl (7.4-10.4); Monocytes # 0.1 K/mm3 (0.1-1.0); Monocytes % 1.1 % (1.7-9.3); Neutrophils # 7.3 K/mm3 (1.8-7.8); Neutrophils % 92.9 % (37.0-80.0); Platelet Count 293 K/mm3 (142-424); Red Cell Distribution Width 18.8 % (11.5-17.5); White Blood Count 7.8 K/mm3 (4.8-10.8)
[2022-01-05 05:49] LABS: MANUAL DIFFERENTIAL MANUAL DIFFERENTIAL (MANUAL DIFF)
[2022-01-05 05:51] LABS: Sodium 141 mmol/L (136-145)
[2022-01-05 05:52] LABS: Chloride 108 mmol/L (98-107); Potassium 4.9 mmoL/L (3.5-5.1)
[2022-01-05 05:56] LABS: Blood Urea Nitrogen 23 mg/dl (9-20); Creatinine Clearance Estimated 61 mL/min (50-200); Estimated Glomerular Filt Rate 45 ml/min (>60); GFR (African American) 55 ML/MIN (>60); Glucose 256 mg/dl (74-100)
[2022-01-05 05:57] LABS: Anion Gap 13.9 mEq/L (5-15); Calcium 9.2 mg/dl (8.4-10.2); Carbon Dioxide 24 mmol/L (22.0-30.0)
[2022-01-05 06:08] LABS: Troponin I 0.02 ng/ml (0.00-0.034)
[2022-01-05 06:15] LABS: Lymphocytes % 6 % (10-50); Neutrophils % 93 % (42-76); Total Cells Counted 100
[2022-01-05 06:17] LABS: Platelet Estimate Normal
[2022-01-05 06:18] LABS: Anisocytosis 2+; Hypochromasia 2+; Microcytosis 2+; Ovalocytes 2+; Stomatocytes 1+; Target Cells 1+
--- NOTE | 2022-01-05 07:39 | HMH.PHAINT ---
MEDICATION RECONCILIATION COMPLETED ON PATIENT USING EXTERNAL FILL HISTORY FROM PHARMACY AND LIST FROM PCP OFFICE. -TRAN MICHELLED
--- NOTE | 2022-01-05 09:31 | HMH.HP ---
*Admission Date: 01/04/22 *Chief complaint: CP *History of present illness: 81-year-old male patient presented to the [facility] emergency department per private vehicle with reports of shortness of breath, chest pain, bilateral feet/ankle edema. He states chest pain started while doing his home health PT exercises. He reports he has had increasing shortness of breath for 2 days he states he feels winded and is unable to get enough air. He also reports feels like his abdomen is swollen and increased shortness of breath while lying flat. He does use home O2 at 4 L per nasal cannula at all times. His chest pain is more of a tightness he states it hurts to cough, denies radiation to jaw, arm, back. He does have a history of COPD and CHF he denies nausea/vomiting/diarrhea or fever/chills/body aches [facility] History I have reviewed the patient's past medical history: Yes Medical History: Reports:: Arrhythmia, Atrial Fibrillation, Cancer, Congestive Heart Failure, Chronic Obstructive Pulmonary Disease (COPD), Congenital Heart Disease, Coronary Artery Disease, Diabetes Mellitus Type 2, Gastroesophageal Reflux Disease(GERD), Gastrointestinal Bleed, Home Oxygen, Hyperlipidemia, Hypertension, Lung Disease, Kidney Stones, Myocardial Infarction, Renal Insufficiency Denies:: Diabetes Mellitus Type 1, Internal Pacemaker, MRSA, Seizures *Have you ever received a pneumonia vaccine?: Yes *Have you received a flu vaccine this season?: Yes Other Medical History: Reports: Anemia, Arthritis, Other Other Surgeries: Yes: No Previous Surgery, Angiogram, Angioplasty, CABG, Cancer Surgery, Cardiac Catheterization, Cardiac Surgery, Colonoscopy, Coronary Stent, EGD, Hernia Repair, Other. No: Pacemaker Amputation: No Fractures: No - *Social History Smoking Status: Former smoker Tobacco Type: cigarettes # Packs/Day (cigarettes): 2 Alcohol Intake: never Alcohol Intake Frequency:: other Substance Use Type: denies use *Occupational Status:: unemployed Housing: house Household Members: spouse *Travel in the last 8 weeks: None Family Hx:: Anemia, Coronary Artery Disease, Diabetes, Heart Attack, Hyperlipidemia, Hypertension, Stroke Review of Systems - Review of Systems Review of systems:: pertinent systems reviewed and negative unless documented below - Constitutional Reports fatigue, Reports lack of energy, Denies fever(s) - Eyes Denies blurry vision, Denies double vision - ENT Denies difficulty swallowing, Denies sinus pressure - *Cardiovascular Reports chest pain, Reports chest pain at rest, Reports chest pain with activity, Reports shortness of breath, Reports shortness of breath with activity, Reports generalized swelling, Denies shortness of breath causing sudden awakening - *Respiratory Reports shortness of breath, Reports shortness of breath with activity, Denies chest congestion, Denies coughing up blood - *Gastrointestinal Reports abdominal pain, Denies change in bowel habits, Denies difficulty swallowing - *Musculoskeletal Reports back pain, Denies muscle cramps, Denies radiating pain into limb - Integumentary/Breasts Denies change in skin color, Denies new lesions - *Neurologic Denies abnormal movements, Denies headache(s), Denies tingling, Denies weakness - Psychiatric Denies lack of enjoyment, Denies change in appetite, Denies confusion - Endocrine Denies cold intolerance, Denies flushing - Hematologic/Lymphatic Denies easy bruising, Denies enlarged lymph nodes - Allergic/Immunologic Denies GI upset with certain foods, Denies hives Meds Home Medications Medication Instructions Recorded Confirmed Type Albuterol Sulfate [Albuterol 1 puff IH Q4HP PRN 09/17/21 01/05/22 History Sulfate Hfa] Gabapentin 300 mg PO BID 09/17/21 01/04/22 History Isosorbide Mononitrate [Isosorbide 60 mg PO DAILY 09/17/21 01/04/22 History Mononitrate ER] Rosuvastatin Calcium 40 mg PO HS 09/17/21 01/04/22 History Tiotropium
--- NOTE | 2022-01-05 10:36 | HMH.CNCARD ---
History of Present Illness Consult date: 01/05/22 Requesting physician: Andres Valencia Consult reason: chest pain, shortness of breath Chief complaint: chest pain and soa Additional Medical History:: COPD CHF CAD s/p cabg and stenting History of present illness: *History of present illness ED NOTE: TO ED PER PVT CAR WITH C/O SOB, CHEST PAIN, SWELLING FEET ANKLES, STATES CHEST PAIN STARTED TODAY WHILE DOING EXERCISES FOR HOME HEALTH. PT C/O BACK PAIN HX OF BROKEN BACK 81-year-old male presenting to the emergency department with chest pain, shortness of breath. Started about 2 days ago. He feels winded, feels like he is breathing fast but unable to get enough air. Feels like his abdomen is swollen. He has shortness of breath with minimal exertion. Also short of breath when lying flat. Is using home 4 L by nasal cannula all the time. Pain is described as a tightness in his chest. Hurts to cough. No exertional chest pain. No radiation to the jaw, arm, back. He has COPD and CHF. Former tobacco use. Denies fevers, chills, nausea, vomiting. Cardiology note: 81 year old male with past medical hx of DD grade 2, CAD s/p stenting and CABG presented to ER with the above complaint. Patient trops negative. EKG negative for ischemic changes. [facility] History Medical History: Reports:: Arrhythmia, Atrial Fibrillation, Cancer, Congestive Heart Failure, Chronic Obstructive Pulmonary Disease (COPD), Congenital Heart Disease, Coronary Artery Disease, Diabetes Mellitus Type 2, Gastroesophageal Reflux Disease(GERD), Gastrointestinal Bleed, Home Oxygen, Hyperlipidemia, Hypertension, Lung Disease, Kidney Stones, Myocardial Infarction, Renal Insufficiency Denies:: Diabetes Mellitus Type 1, Internal Pacemaker, MRSA, Seizures *Have you ever received a pneumonia vaccine?: Yes *Have you received a flu vaccine this season?: Yes Other Medical History: Reports: Anemia, Arthritis, Other Other Surgeries: Yes: No Previous Surgery, Angiogram, Angioplasty, CABG, Cancer Surgery, Cardiac Catheterization, Cardiac Surgery, Colonoscopy, Coronary Stent, EGD, Hernia Repair, Other. No: Pacemaker Amputation: No Fractures: No - *Social History Smoking Status: Former smoker Tobacco Type: cigarettes # Packs/Day (cigarettes): 2 Alcohol Intake: never Alcohol Intake Frequency:: other Substance Use Type: denies use *Occupational Status:: unemployed Housing: house Household Members: spouse *Travel in the last 8 weeks: None Family Hx:: Anemia, Coronary Artery Disease, Diabetes, Heart Attack, Hyperlipidemia, Hypertension, Stroke Meds Home Medications Medication Instructions Recorded Confirmed Type Albuterol Sulfate [Albuterol 1 puff IH Q4HP PRN 09/17/21 01/05/22 History Sulfate Hfa] Gabapentin 300 mg PO BID 09/17/21 01/04/22 History Isosorbide Mononitrate [Isosorbide 60 mg PO DAILY 09/17/21 01/04/22 History Mononitrate ER] Rosuvastatin Calcium 40 mg PO HS 09/17/21 01/04/22 History Tiotropium Br/Olodaterol HCl 2 puffs IH DAILY 09/17/21 01/04/22 History [Stiolto Respimat Inhal [place]] gemfibroziL [Gemfibrozil] 600 mg PO BID 09/17/21 01/04/22 History Insulin Regular, Human [Humulin R 100 unit SQ QPMWITHMEAL 09/20/21 01/04/22 History U-500 Kwikpen] Insulin Regular, Human [Humulin R 250 unit SQ AM 09/20/21 01/05/22 History U-500 Kwikpen] pantoprazole 40 mg tablet,delayed 40 mg PO DAILY 11/18/21 01/04/22 History release Clopidogrel Bisulfate [Plavix] 75 mg PO DAILY 11/27/21 01/05/22 History Metoprolol Tartrate [Lopressor 25 mg PO BID 11/27/21 01/05/22 History 25mg tablet] Verapamil HCl [[place] SR 120mg 120 mg PO DAILY 11/27/21 01/04/22 History tablet] hydrocodone 5 mg-acetaminophen 325 1 tab PO Q8H PRN #15 tab 12/15/21 01/04/22 Rx mg tablet Spironolactone 50 mg PO BID 01/04/22 01/04/22 History Torsemide 30 mg PO BID 01/04/22 01/04/22 History polyethylene glycoL 3350 17 g PO BID 01/04/22 01/04/22 History [Polyethylene Glycol 3350] lis
[2022-01-05 12:25] LABS: POC Glucose,Bedside 504 (70-110)
--- NOTE | 2022-01-05 15:26 | PC.NURSE ---
1210 called and spoke to javier r/t pt fsbs being 504. order states to call md. Mast states to give pt 20 units of lispro at this time.
[2022-01-05 17:16] LABS: POC Glucose,Bedside 509 (70-110)
--- NOTE | 2022-01-05 17:35 | PC.NURSE ---
Addendum entered by Ashley Guthrie RN 01/05/22 18:36: [address] Urena, informed him of insulin regimen pt has at home. stat glucose is [address] Urena give 40units lispro sub q Original Note: 0188: contacted information writer MD in regards to pt fsbs of 509. awaiting call back.
--- NOTE | 2022-01-05 17:38 | PC.NURSE ---
pt has been in room with at bedside for most of the shift. pt iv dislodged after arrived in room. pt willing to let staff start new iv. after iv restarted pt expressed displeasure with location. pt states he is ok with iv at this time. lung sounds are diminished and bowel sounds are hypo active in all quads.
[2022-01-05 18:38] LABS: Glucose,Random 565 mg/dL (74-100)
[2022-01-05 21:43] LABS: POC Glucose,Bedside 584 (70-110)
[2022-01-05 21:54] LABS: Glucose,Random 548 mg/dL (74-100)
[2022-01-06] VITALS (28 sets, daily range): BP systolic 104–169; BP diastolic 43–68; PULSE 60–90; RESP 15–24; TEMP 36.4–37.1; O2SAT 94–99; BMI 35.7
[2022-01-06 06:31] LABS: Chloride 102 mmol/L (98-107); Potassium 3.9 mmoL/L (3.5-5.1); Sodium 142 mmol/L (136-145)
[2022-01-06 06:34] LABS: Anion Gap 11.9 mEq/L (5-15); Blood Urea Nitrogen 41 mg/dl (9-20); Calcium 9.4 mg/dl (8.4-10.2); Carbon Dioxide 32 mmol/L (22.0-30.0); Creatinine Clearance Estimated 51 mL/min (50-200); Estimated Glomerular Filt Rate 39 ml/min (>60); GFR (African American) 47 ML/MIN (>60); Glucose 111 mg/dl (74-100)
[2022-01-06 07:05] LABS: POC Glucose,Bedside 146 (70-110)
[2022-01-06 07:54] LABS: Basophils % 0.2 % (0.1-2.0); Eosinophils # 0.1 K/mm3 (0.0-0.4); Eosinophils % 0.6 % (0.1-12.0); Hematocrit 23.4 % (42.0-52.0); Lymphocytes # 1.2 K/mm3 (0.7-4.5); Mean Corpuscular HGB Conc 29.4 g/dL (31.8-35.4); Mean Corpuscular Hemoglobin 19.7 pg (27.0-31.2); Mean Platelet Volume 6.9 fl (7.4-10.4); Monocytes # 0.9 K/mm3 (0.1-1.0); Monocytes % 7.7 % (1.7-9.3); Neutrophils # 9.1 K/mm3 (1.8-7.8); Neutrophils % 80.5 % (37.0-80.0); Platelet Count 335 K/mm3 (142-424); Red Cell Distribution Width 16.8 % (11.5-17.5); White Blood Count 11.3 K/mm3 (4.8-10.8)
[2022-01-06 08:04] LABS: Hemoglobin 6.9 g/dL (14.1-18.0)
--- NOTE | 2022-01-06 09:48 | HMH.ACPN2 ---
Internal Medicine - PN: Subj *Date: 01/06/22 *Time: 09:20 Exam Vital signs and Labs for Last 24 Hours: Temp Pulse Resp BP Pulse Ox 97.9 F 79 18 139/58 L 98 01/06/22 07:37 01/06/22 07:37 01/06/22 07:37 01/06/22 07:37 01/06/22 08:00 Laboratory Results - last 24 hr 01/04/22 19:25: Crossmatch (AHG) See Detail 01/05/22 12:14: POC Glucose 504 H* 01/05/22 17:04: POC Glucose 509 H* 01/05/22 18:17: Random Glucose 565 H* 01/05/22 21:18: POC Glucose 584 H* 01/05/22 21:28: Random Glucose 548 H* 01/06/22 05:51: WBC 11.3 H D, RBC 3.50 L, Hgb 6.9 L, Hct 23.4 L, MCV 67.0 L, MCH 19.7 L, MCHC 29.4 L, RDW 16.8, Plt Count 335, MPV 6.9 L, Neut % (Auto) 80.5 H, Lymph % (Auto) 11.0, [place] % (Auto) 7.7, Eos % (Auto) 0.6, Baso % (Auto) 0.2, Neut # (Auto) 9.1 H, Lymph # (Auto) 1.2, [place] # (Auto) 0.9, Eos # (Auto) 0.1, Baso # (Auto) 0.0 01/06/22 05:51: Sodium 142, Potassium 3.9 D, Chloride 102, Carbon Dioxide 32 H, Anion Gap 11.9, BUN 41 H D, Creatinine 1.70 H, Estimated Creat Clear 51, Estimated GFR 39 L, Est GFR ( Amer) 47 L, Glucose 111 H, Calcium 9.4 01/06/22 06:58: POC Glucose 146 H I & O for Last 24 hours: Intake & Output 01/03/22 01/04/22 01/05/22 01/06/22 11:59 11:59 11:59 11:59 Intake Total 360 / 360 840 / 840 Output Total 3070 / 3070 2100 / 2100 Balance -2710 / -2710 -1260 / -1260 Weight 238 lb 4 oz 227 lb 9.6 oz - Constitutional no acute distress, obese - *Routine HEENT Exam Head: Present: normocephalic Eye: Present: PERRL ENT: Present: mucous membranes moist - *Routine Neck Exam Present: supple. Absent: lymphadenopathy - *Routine Respiratory Exam Present: CTA bilaterally - *Routine Cardiovascular Exam Present: RRR - *Routine Abdominal Exam Present: soft, normoactive bowel sounds. Absent: tenderness - *Routine Extremities Exam Absent: cyanosis, clubbing, edema - *Routine Skin Exam Present: intact, warm. Absent: rash - *Routine Neurological Exam Present: alert, oriented X3 Assessment and Plan (1) Acute exacerbation of chronic obstructive airways disease Status: Acute Category: Medical Code(s): J44.1 - Chronic obstructive pulmonary disease with (acute) exacerbation (2) Diastolic CHF Status: Chronic Qualifiers: Heart failure chronicity: chronic Qualified Code(s): I50.32 - Chronic diastolic (congestive) heart failure Category: Medical Code(s): I50.30 - Unspecified diastolic (congestive) heart failure (3) Diabetes mellitus Status: Chronic Qualifiers: Diabetes mellitus type: type 1 Diabetes mellitus complication status: with other specified complication Qualified Code(s): E10.69 - Type 1 diabetes mellitus with other specified complication Category: Medical Code(s): E11.9 - Type 2 diabetes mellitus without complications (4) Obesity (BMI 30-39.9) Status: Chronic Category: Medical Code(s): E66.9 - Obesity, unspecified (5) CAD (coronary artery disease) Status: Chronic Qualifiers: Coronary Disease-Associated Artery/Lesion type: [place] artery [place] vs. transplanted heart: [place] heart Associated angina: without angina Qualified Code(s): I25.10 - Atherosclerotic heart disease of [place] coronary artery without angina pectoris Category: Medical Code(s): I25.10 - Atherosclerotic heart disease of [place] coronary artery without angina pectoris (6) Anemia Status: Acute Qualifiers: Anemia type: unspecified type Qualified Code(s): D64.9 - Anemia, unspecified Category: Medical Code(s): D64.9 - Anemia, unspecified - Assessment and plan all Dx Assessment and Plan for all problems:: rounded with dr wisdom all orders per dr wisdom transfuse 2 units prbc
--- NOTE | 2022-01-06 10:34 | HMH.PNCARD ---
Subjective Date: 01/06/22 Time: 08:30 Principal diagnosis: copd exacerbation/chf exacerbation/questionable pneumonia, anemia Interval history: Patient reports is feeling better today, reports soa has improved and LE edema in ankles has resolved. Denies chest pain. Exam Vital signs and Labs for Last 24 Hours: Temp Pulse Resp BP Pulse Ox 97.9 F 79 18 139/58 L 98 01/06/22 07:37 01/06/22 07:37 01/06/22 07:37 01/06/22 07:37 01/06/22 08:00 Laboratory Results - last 24 hr 01/04/22 19:25: Blood Type A Positive, Antibody Screen Negative, Crossmatch (AHG) See Detail 01/05/22 12:14: POC Glucose 504 H* 01/05/22 17:04: POC Glucose 509 H* 01/05/22 18:17: Random Glucose 565 H* 01/05/22 21:18: POC Glucose 584 H* 01/05/22 21:28: Random Glucose 548 H* 01/06/22 05:51: WBC 11.3 H D, RBC 3.50 L, Hgb 6.9 L, Hct 23.4 L, MCV 67.0 L, MCH 19.7 L, MCHC 29.4 L, RDW 16.8, Plt Count 335, MPV 6.9 L, Neut % (Auto) 80.5 H, Lymph % (Auto) 11.0, [place] % (Auto) 7.7, Eos % (Auto) 0.6, Baso % (Auto) 0.2, Neut # (Auto) 9.1 H, Lymph # (Auto) 1.2, [place] # (Auto) 0.9, Eos # (Auto) 0.1, Baso # (Auto) 0.0 01/06/22 05:51: Sodium 142, Potassium 3.9 D, Chloride 102, Carbon Dioxide 32 H, Anion Gap 11.9, BUN 41 H D, Creatinine 1.70 H, Estimated Creat Clear 51, Estimated GFR 39 L, Est GFR ( Amer) 47 L, Glucose 111 H, Calcium 9.4 01/06/22 06:58: POC Glucose 146 H I & O for Last 24 hours: Intake & Output 01/03/22 01/04/22 01/05/22 01/06/22 23:59 23:59 23:59 23:59 Intake Total 840 / 840 360 / 360 Output Total 3870 / 4170 1300 / 1300 Balance -3030 / -3330 -940 / -940 Weight 240 lb 7 oz 238 lb 1.588 oz 227 lb 9.6 oz - Constitutional no acute distress - *Routine Respiratory Exam Present: CTA bilaterally - *Routine Cardiovascular Exam Present: RRR - *Routine Extremities Exam Absent: edema Progress Note: A&P (1) Acute exacerbation of chronic obstructive airways disease Status: Acute (2) Diastolic CHF Status: Chronic (3) Diabetes mellitus Status: Chronic (4) Obesity (BMI 30-39.9) Status: Chronic (5) CAD (coronary artery disease) Status: Chronic (6) Anemia Status: Acute Assessment and Plan for All Diagnoses:: CAD with stable angina - Trops negative. - EKG negative for ischemic changes. LBBB present and old - Cath 01/18-Patent CRESPO to LAD. Patent saphenous vein graft to the circ. successful stenting of the [place] RCA. - Continue aspirin, plavix, BB, statin, and verapamil. Dyspnea -multifactoral- COPD exacerbation, pneumonia, probably volume overload -treatment of pneumonia, COPD. diures as below Acute on chronic DD NYHA III -Echo 09/22 EF 50, DD grade 2, MILD MR/tr -Continue BB, Aldactone, torsemide. ADD jardiance and low dose entresto. One time dose of bumex. Patient more than likely needs diuresed. -Monitor I&O DM -management per primary service. Add jardiance for CHF as well. Obesity -counseled patient on the importance of weight loss. Anemia -HGB today 6.9. no active bleeding noted -Plan to transfuse per primary service. Please administer Bumex 1mg between units. Worsening renal insufficiency - Creatinine today elevated to 1.7 from 1.5 - Monitor closely with additional diureses 01/06/2022 summary: SOA improving, LE edema resolved. Primary service transfusing 2 units PRBC, please administer Bumex 1mg between units.
[2022-01-06 16:58] LABS: POC Glucose,Bedside 399 (70-110)
[2022-01-06 16:58] LABS: POC Glucose,Bedside 315 (70-110)
--- NOTE | 2022-01-06 20:16 | PC.NURSE ---
1 unit of blood given, pt tolerated well as well as diuresing. IV antibiotics given in between blood units as pt would not let us obtain another iv. VS stable and pt remained on home oxygen 4LNC. No other complaints noted.
[2022-01-06 20:38] LABS: POC Glucose,Bedside 385 (70-110)
[2022-01-07] VITALS: BP 135/55; PULSE 68; PULSE 70; RESP 20; TEMP 36.8; O2SAT 97
[2022-01-07 00:10] VITALS: BP 118/64; PULSE 77; RESP 20; TEMP 37.2; O2SAT 98
[2022-01-07 00:35] VITALS: BP 135/56; PULSE 68; RESP 20; TEMP 37.2; O2SAT 98
[2022-01-07 01:35] VITALS: BP 148/56; PULSE 68; RESP 21; TEMP 36.8; O2SAT 95
[2022-01-07 03:14] LABS: Hematocrit 29.9 % (42.0-52.0)
[2022-01-07 03:18] LABS: Hemoglobin 9.6 g/dL (14.1-18.0)
[2022-01-07 04:00] VITALS: BP 140/50; PULSE 60; PULSE 62; RESP 21; TEMP 37.1; O2SAT 95
[2022-01-07 05:00] VITALS: BMI 34.8
[2022-01-07 06:22] LABS: Basophils # 0.1 K/mm3 (0-0.2); Basophils % 0.7 % (0.1-2.0); Eosinophils # 0.3 K/mm3 (0.0-0.4); Eosinophils % 3.7 % (0.1-12.0); Hematocrit 31.1 % (42.0-52.0); Hemoglobin 9.7 g/dL (14.1-18.0); Lymphocytes # 1.4 K/mm3 (0.7-4.5); Mean Corpuscular Hemoglobin 21.9 pg (27.0-31.2); Mean Corpuscular Volume 70.5 fl (80-94); Mean Platelet Volume 7.9 fl (7.4-10.4); Monocytes # 0.6 K/mm3 (0.1-1.0); Monocytes % 7.6 % (1.7-9.3); Neutrophils # 5.7 K/mm3 (1.8-7.8); Neutrophils % 71.1 % (37.0-80.0); Platelet Count 339 K/mm3 (142-424); Red Blood Count 4.42 M/mm3 (4.60-6.20); Red Cell Distribution Width 19.9 % (11.5-17.5); White Blood Count 8.1 K/mm3 (4.8-10.8)
[2022-01-07 06:32] LABS: Chloride 96 mmol/L (98-107); Potassium 4.4 mmoL/L (3.5-5.1); Sodium 137 mmol/L (136-145)
[2022-01-07 06:35] LABS: Blood Urea Nitrogen 55 mg/dl (9-20); Creatinine Clearance Estimated 43 mL/min (50-200); Estimated Glomerular Filt Rate 32 ml/min (>60); GFR (African American) 39 ML/MIN (>60)
[2022-01-07 06:36] LABS: Anion Gap 16.4 mEq/L (5-15); Calcium 9.2 mg/dl (8.4-10.2); Carbon Dioxide 29 mmol/L (22.0-30.0)
--- NOTE | 2022-01-07 06:44 | PC.NURSE ---
Pt a&ox4, pt has rested throughout the night, O2 sat 95-98% on 4L NC. Pt received one unit of PRBC on this shift, pt tolerated well with no signs/symptoms of reaction. No new complaints. Fingerstick 0600 was 505, notified md online marketing director, dr. do stated give 30 units insulin and PCP to follow up with care in morning rounds.
[2022-01-07 06:59] LABS: Glucose 518 mg/dl (74-100)
[2022-01-07 08:00] VITALS: BP 124/57; PULSE 73; RESP 16; TEMP 36.6; O2SAT 93
--- NOTE | 2022-01-07 08:46 | HMH.PNCARD ---
Subjective Date: 01/07/22 Time: 08:46 Principal diagnosis: copd exacerbation/chf exacerbation/questionable pneumonia, anemia Interval history: Patient sitting up on side of bed, states feels great and would like to go home. Denies cp or soa. No LE edema present. s/p to units PRBC transfusion yesterday. Exam Vital signs and Labs for Last 24 Hours: Temp Pulse Resp BP Pulse Ox 98.7 F 62 21 140/50 L 95 01/07/22 04:00 01/07/22 04:00 01/07/22 04:00 01/07/22 04:00 01/07/22 04:00 Laboratory Results - last 24 hr 01/04/22 19:25: Blood Type A Positive, Antibody Screen Negative, Crossmatch (AHG) See Detail 01/06/22 12:18: POC Glucose 399 H* 01/06/22 16:50: POC Glucose 315 H* 01/06/22 20:26: POC Glucose 385 H* 01/07/22 02:43: Hgb 9.6 L D, Hct 29.9 L 01/07/22 05:43: WBC 8.1 D, RBC 4.42 L D, Hgb 9.7 L, Hct 31.1 L, MCV 70.5 L, MCH 21.9 L, MCHC 31.0 L, RDW 19.9 H, Plt Count 339, MPV 7.9, Neut % (Auto) 71.1, Lymph % (Auto) 17.0, [place] % (Auto) 7.6, Eos % (Auto) 3.7, Baso % (Auto) 0.7, Neut # (Auto) 5.7, Lymph # (Auto) 1.4, [place] # (Auto) 0.6, Eos # (Auto) 0.3, Baso # (Auto) 0.1 01/07/22 05:43: Sodium 137, Potassium 4.4, Chloride 96 L, Carbon Dioxide 29, Anion Gap 16.4 H, BUN 55 H D, Creatinine 2.00 H, Estimated Creat Clear 43, Estimated GFR 32 L, Est GFR ( Amer) 39 L, Glucose 518 H* D, Calcium 9.2 I & O for Last 24 hours: Intake & Output 01/04/22 01/05/22 01/06/22 01/07/22 23:59 23:59 23:59 23:59 Intake Total 840 / 840 720 / 720 250 / 250 Output Total 3870 / 4170 2475 / 2475 900 / 900 Balance -3030 / -3330 -1755 / -1755 -650 / -650 Weight 240 lb 7 oz 238 lb 1.588 oz 227 lb 9.6 oz 221 lb 12.8 oz Microbiology Reports for the Last 24 Hours: Microbiology 01/04/22 17:45 Blood Blood Culture - Preliminary NO GROWTH AFTER 48 HOURS 01/04/22 17:45 Blood Blood Culture - Preliminary NO GROWTH AFTER 48 HOURS - *Routine Respiratory Exam Present: CTA bilaterally - *Routine Cardiovascular Exam Present: RRR - *Routine Extremities Exam Absent: cyanosis, clubbing, edema - *Routine Skin Exam Present: warm. Absent: rash - *Routine Neurological Exam Present: alert, oriented X3 Progress Note: A&P (1) Acute exacerbation of chronic obstructive airways disease Status: Acute (2) Diastolic CHF Status: Chronic (3) Diabetes mellitus Status: Chronic (4) Obesity (BMI 30-39.9) Status: Chronic (5) CAD (coronary artery disease) Status: Chronic (6) Anemia Status: Acute Assessment and Plan for All Diagnoses:: CAD with stable angina - Trops negative. - EKG negative for ischemic changes. LBBB present and old - Cath 01/18-Patent CRESPO to LAD. Patent saphenous vein graft to the circ. successful stenting of the [place] RCA. - Continue aspirin, plavix, BB, statin, and verapamil. 01/07- Denies pain Dyspnea -multifactoral- COPD exacerbation, pneumonia, probably volume overload -treatment of pneumonia, COPD. diures as below 01/07- Denies Acute on chronic DD NYHA III -Echo 09/22 EF 50, DD grade 2, MILD MR/tr -Continue BB, Aldactone, torsemide. ADD jardiance and low dose entresto. One time dose of bumex. Patient more than likely needs diuresed. -Monitor I&O 01/07- SOA and bilateral LE edema resolved. DM -management per primary service. Add jardiance for CHF as well. Obesity -counseled patient on the importance of weight loss. Anemia -HGB today 6.9. no active bleeding noted -Plan to transfuse per primary service. Please administer Bumex 1mg between units. 01/07- Hgb 9.7 Worsening renal insufficiency - Creatinine today elevated to 1.7 from 1.5 - Monitor closely with additional diureses 01/07-creatinine up to 2.0. expected with the addition diuretics the last few days. monitor. 01/07 cv summary: Patient doing well, feels better, requesting to go home. CV stable for dc. would like to see patient in office in 1
--- NOTE | 2022-01-07 09:52 | HMH.DCSUM ---
General - General Admission date:: 01/04/22 Discharge date: 01/07/22 HPI HPI: 81-year-old male patient presented to the [facility] emergency department per private vehicle with reports of shortness of breath, chest pain, bilateral feet/ankle edema. He states chest pain started while doing his home health PT exercises. He reports he has had increasing shortness of breath for 2 days he states he feels winded and is unable to get enough air. He also reports feels like his abdomen is swollen and increased shortness of breath while lying flat. He does use home O2 at 4 L per nasal cannula at all times. His chest pain is more of a tightness he states it hurts to cough, denies radiation to jaw, arm, back. He does have a history of COPD and CHF he denies nausea/vomiting/diarrhea or fever/chills/body aches Hospital Course Hospital Course: 81-year-old male patient presented to the [facility] emergency department per private vehicle with reports of shortness of breath, chest pain, bilateral feet/ankle edema. He states chest pain started while doing his home health PT exercises. He reports he has had increasing shortness of breath for 2 days he states he feels winded and is unable to get enough air. He also reports feels like his abdomen is swollen and increased shortness of breath while lying flat. He does use home O2 at 4 L per nasal cannula at all times. His chest pain is more of a tightness he states it hurts to cough, denies radiation to jaw, arm, back. He does have a history of COPD and CHF he denies nausea/vomiting/diarrhea or fever/chills/body aches Cardiology has seen and recommends: Assessment and Plan for All Diagnoses:: CAD with stable angina - Trops negative. - EKG negative for ischemic changes. LBBB present and old - Cath 01/18-Patent CRESPO to LAD. Patent saphenous vein graft to the circ. successful stenting of the [place] RCA. - Continue aspirin, plavix, BB, statin, and verapamil. 01/07- Denies pain Dyspnea -multifactoral- COPD exacerbation, pneumonia, probably volume overload -treatment of pneumonia, COPD. diures as below 01/07- Denies Acute on chronic DD NYHA III -Echo 09/22 EF 50, DD grade 2, MILD MR/tr -Continue BB, Aldactone, torsemide. ADD jardiance and low dose entresto. One time dose of bumex. Patient more than likely needs diuresed. -Monitor I&O 01/07- SOA and bilateral LE edema resolved. DM -management per primary service. Add jardiance for CHF as well. Obesity -counseled patient on the importance of weight loss. Anemia -HGB today 6.9. no active bleeding noted -Plan to transfuse per primary service. Please administer Bumex 1mg between units. 01/07- Hgb 9.7 Worsening renal insufficiency - Creatinine today elevated to 1.7 from 1.5 - Monitor closely with additional diureses 01/07-creatinine up to 2.0. expected with the addition diuretics the last few days. monitor. 01/07 cv summary: Patient doing well, feels better, requesting to go home. CV stable for dc. would like to see patient in office in 1 week. patient needs bmp drawn on Tuesday, order placed. will adjust meds as needed based on results DC meds: Aspirin 81mg QD Plavix 75mg QD Crestor 40mg QD verapamil 120mg qd aldactone 25mg QD jardiance 10mg QD entresto / BID. torasemide 40mg QD Acute exacerbation of chronic obstructive airways disease Patient was diuresed during admission, no pedal edema noted currently. Cardiology seen and medications were optimized and new medications added. He was on oxygen during his stay up to 6 L per nasal cannula and gradually weaned down to 4 L per nasal cannula which is his home setting. Diabetes mellitus Diabetes managed per [place] [facility] and he has upcoming appointments with them. Jardiance was also added this admission Better food options/portions discussed, patient reports he knows what he should be eating and is trying Obesity
[2022-01-07 11:41] LABS: POC Glucose,Bedside 505 (70-110)
--- NOTE | 2022-01-07 12:05 | PC.NURSE ---
Pt waiting on ride home
--- NOTE | 2022-01-07 13:27 | DIET.NUTRFU ---
RD provided handout on 2gmNa and diabetic diet, again he was not receptive to it. He said his is responsible for meals, but when I interviewed the first time he stated he still adds salt or sugar to his food that she makes. This RD does not anticipate any lifestyle changes.
--- NOTE | 2022-01-08 10:47 | SW/DCPLANNER ---
This patient currently receives services from [facility]. Per Zee w/ Jigneshmd services will be resumed.
--- NOTE | 2022-01-08 16:56 | CARE MANAGER ---
Called and spoke with patient regarding post discharge status. Patient states that he is doing ok, and was able to pickler helper new medication at pharmacy. Patient continues to have back pain and asked if he was allowed to take naproxen, (his apparently says he was told not to take it anymore while here in this facility). I advised that he should clear it with his PCP prior to taking it, just to be on the safe side as I could not find anything about it in DC summary. He was unsure of scheduled appts, so I went over them with him and had him write them down.
== END 2022-01-07 13:25 | disposition home health service (06) ==
LOC: ER 18:16 → 2ND 19:15
PROVIDERS: Emergency Medicine; Nurse Practitioner Family; Admitting Provider Family Medicine; Emergency Provider Emergency Medicine; PCP Family Medicine; Visit Provider Family Medicine
DX: J44.1 Chronic obstructive pulmonary disease with (acute) exacerbation (principal); J96.21 Acute and chronic respiratory failure with hypoxia; D64.9 Anemia, unspecified; Z20.822 Contact with and (suspected) exposure to COVID-19; Z99.81 Dependence on supplemental oxygen; Z87.891 Personal history of nicotine dependence; Z79.4 Long term (current) 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; I48.91 Unspecified atrial fibrillation; I11.0 Hypertensive heart disease with heart failure; E11.21 Type 2 diabetes mellitus with diabetic nephropathy; Z95.5 Presence of coronary angioplasty implant and graft; I25.2 Old myocardial infarction; I50.32 Chronic diastolic (congestive) heart failure; E66.9 Obesity, unspecified; Z68.34 Body mass index [BMI] 34.0-34.9, adult; I25.10 Atherosclerotic heart disease of native coronary artery without angina pectoris; J44.0 Chronic obstructive pulmonary disease with (acute) lower respiratory infection; J18.9 Pneumonia, unspecified organism
CPT/HCPCS: G0378; 36415; 71045; 80048; 80053; 82803; 82947; 82962; 83605; 83880; 84484; 85007; 85014; 85018; 85025; 86850; 87040; 93005; 94640; 94760; 94761; 99285; C9803; J0456; J0696; P9016; U0003; U0005

== ENCOUNTER → 2022-01-13 14:30 | Outpatient (CLI) | payer MEDICARE, SELFPAY ==
[2022-01-13 15:37] LABS: Chloride 106 mmol/L (98-107); Sodium 135 mmol/L (136-145)
[2022-01-13 15:38] LABS: Potassium 5.3 mmoL/L (3.5-5.1)
[2022-01-13 15:41] LABS: Anion Gap 15.3 mEq/L (5-15); Blood Urea Nitrogen 41 mg/dl (9-20); Calcium 9.1 mg/dl (8.4-10.2); Carbon Dioxide 19 mmol/L (22.0-30.0); Estimated Glomerular Filt Rate 37 ml/min (>60); GFR (African American) 44 ML/MIN (>60); Glucose 352 mg/dl (74-100)
== END ==
PROVIDERS: PCP Family Medicine; Visit Provider Nurse Practitioner
DX: I11.9 Hypertensive heart disease without heart failure; I48.0 Paroxysmal atrial fibrillation; R94.31 Abnormal electrocardiogram [ECG] [EKG]
CPT/HCPCS: 36415; 80048

== ENCOUNTER → 2022-03-22 14:32 | Outpatient (CLI) | payer MEDICARE, SELFPAY ==
[2022-03-22 14:59] LABS: Basophils # 0.1 K/mm3 (0-0.2); Basophils % 0.9 % (0.1-2.0); Eosinophils # 0.3 K/mm3 (0.0-0.4); Eosinophils % 3.1 % (0.1-12.0); Hematocrit 32.6 % (42.0-52.0); Hemoglobin 9.1 g/dL (14.1-18.0); Lymphocytes # 1.9 K/mm3 (0.7-4.5); Lymphocytes % 18.4 % (10-50); Mean Corpuscular Hemoglobin 21.2 pg (27.0-31.2); Mean Corpuscular Volume 75.6 fl (80-94); Mean Platelet Volume 7.9 fl (7.4-10.4); Monocytes # 0.5 K/mm3 (0.1-1.0); Monocytes % 4.8 % (1.7-9.3); Neutrophils # 7.4 K/mm3 (1.8-7.8); Neutrophils % 72.8 % (37.0-80.0); Platelet Count 342 K/mm3 (142-424); Red Blood Count 4.32 M/mm3 (4.60-6.20); Red Cell Distribution Width 20.5 % (11.5-17.5); White Blood Count 10.2 K/mm3 (4.8-10.8)
== END ==
PROVIDERS: PCP Family Medicine; Visit Provider Family Medicine
DX: J44.1 Chronic obstructive pulmonary disease with (acute) exacerbation (principal)
CPT/HCPCS: 36415; 85025

== ENCOUNTER 2022-05-28 14:39 | Emergency (ER) | payer MEDICARE, SELFPAY ==
[2022-05-28] VITALS (13 sets, daily range): BP systolic 104–179; BP diastolic 44–70; PULSE 75–95; RESP 16–20; TEMP 36.7–37.1; O2SAT 99–100; BMI 35.0
--- NOTE | 2022-05-28 14:44 | PC.NURSE ---
7812 ED MD AT BEDSIDE FOR EVALUATION
--- NOTE | 2022-05-28 14:53 | HMH.EDGENADL ---
Discharge Plan Disposition Patient Disposition: Home, Self-Care Condition: Good Prescriptions Prescriptions: No Action Stiolto Respimat 2.5-2.5 mcg/actuation mist 2 puff inhalation DAILY 90 Days Qty: 4 3RF albuterol sulfate 90 mcg/actuation HFA aerosol inhaler 2 inh inhalation Q6H PRN (Reason: shortness of breath or wheezing) 90 Days Qty: 8.5 3RF hydrocodone-acetaminophen 5-325 mg tablet 1 tab PO DAILY PRN (Reason: pain) Qty: 30 0RF gabapentin 300 mg capsule 300 mg PO BID Qty: 60 5RF rosuvastatin 40 mg tablet 40 mg PO HS Qty: 90 3RF cyclobenzaprine 10 mg tablet 10 mg PO TID PRN (Reason: muscle spasm) Qty: 30 3RF verapamil 120 MG capsule,ext rel. pellets 24 hr 120 mg PO DAILY clopidogrel 75 mg tablet See Rx Instructions .ROUTE .COMPLEX Rx Instructions: TAKE 1 TABLET EVERY DAY spironolactone 25 mg tablet 25 mg PO DAILY gemfibrozil 600 mg tablet See Rx Instructions .ROUTE .COMPLEX Rx Instructions: TAKE 1 TABLET TWICE DAILY FOR CHOLESTEROL pantoprazole 40 mg tablet,delayed release (DR/EC) See Rx Instructions .ROUTE .COMPLEX Rx Instructions: TAKE 1 TABLET EVERY DAY insulin aspart U-100 [Novolog Flexpen U-100 Insulin] 100 unit/mL (3 mL) insulin pen See Rx Instructions .ROUTE .COMPLEX Rx Instructions: 15 units if blood sugar exceeds 400; empagliflozin 10 mg tablet 10 mg PO DAILY sacubitril-valsartan 24-26 mg tablet 1 each PO BID torsemide 40 mg tablet 40 mg PO DAILY albuterol sulfate 8.5 GM HFA aerosol inhaler 1 puff IH Q4HP PRN (Reason: Shortness Of Breath) tiotropium-olodaterol 4 GM mist 2 puffs IH DAILY insulin regular hum U-500 conc 500 UNIT/ML insulin pen 100 unit SQ QPMWITHMEAL insulin regular hum U-500 conc 500 UNIT/ML insulin pen 250 unit SQ AM polyethylene glycol 3350 238 GM powder 17 g PO BID Referrals Follow up/Referrals: Andres Valencia MD [Primary Care Provider] - See instructions Juan Hernadez MD [Staff Physician] - See instructions Activity Restrictions/Add. Instructions Additional Instructions/Restrictions: At this time was felt you are safe to be discharged home. If new or worsening symptoms please do not hesitate to return for continued evaluation. Please call and schedule an appointment with Dr. Nobles for possible colonoscopy. Please follow-up with your family doctor for continued evaluation of your anemia (blood loss). Clinical Impressions Clinical Impression: Anemia Discharge ED Provider: Branden Ventura General Adult HPI General Chief complaint: Recheck/Abnormal Lab/Rx Stated complaint: low blood pressure Time Seen by Provider: 05/28/22 14:50 History of Present Illness HPI narrative: Patient has an 82-year-old gentleman with past medical history of hypertension, hyperlipidemia, coronary artery disease, COPD on 3 L nasal cannula, prior ACS status post stenting and open heart surgery on anticoagulation (patient does not know which one), paroxysmal atrial fibrillation, chronic anemia who presents to the emergency department for evaluation of suspected anemia. History is obtained by patient at bedside, patient presented to routine follow-up at the [facility] yesterday and was called today and told to go to the emergency room because his blood was low . Patient has no acute complaints and is asymptomatic. Patient denies vomiting, blood in his stool. Related Data Home Medications Medication Instructions Recorded Confirmed albuterol sulfate 90 mcg/actuation 1 puff inhalation Q4HP PRN 09/17/21 05/28/22 aerosol inhaler Shortness Of Breath tiotropium 2.5 mcg-olodaterol 2.5 2 puffs inhalation DAILY COPD 09/17/21 05/11/22 mcg/actuation mist for inhalation insulin regular hum U-500 conc 500 100 unit SQ QPMWITHMEAL Diabetes 09/20/21 05/28/22 unit/mL(3 mL) subcut pen insulin regular hum U-500 conc 500 250 unit SQ AM Diabetes 09/20/21 05/28/22 u
[2022-05-28 15:24] LABS: Basophils % 0.5 % (0.1-2.0); Eosinophils # 0.2 K/mm3 (0.0-0.4); Eosinophils % 2.9 % (0.1-12.0); Hematocrit 24.2 % (42.0-52.0); Lymphocytes # 0.9 K/mm3 (0.7-4.5); Lymphocytes % 11.3 % (10-50); Mean Corpuscular HGB Conc 28.7 g/dL (31.8-35.4); Mean Corpuscular Hemoglobin 18.5 pg (27.0-31.2); Mean Corpuscular Volume 64.4 fl (80-94); Mean Platelet Volume 8.1 fl (7.4-10.4); Monocytes # 0.4 K/mm3 (0.1-1.0); Monocytes % 4.5 % (1.7-9.3); Neutrophils # 6.7 K/mm3 (1.8-7.8); Neutrophils % 80.9 % (37.0-80.0); Platelet Count 377 K/mm3 (142-424); Red Blood Count 3.76 M/mm3 (4.60-6.20); Reticulocyte % (Auto) 2.6 % (0.9-3.2); White Blood Count 8.3 K/mm3 (4.8-10.8)
[2022-05-28 15:25] LABS: Hemoglobin 6.9 g/dL (14.1-18.0)
--- NOTE | 2022-05-28 15:25 | PC.NURSE ---
DIONICIO FROM LAB CALLED A CRITICAL HGB OF 6.9 MD PRESENT FOR PHONE CALL AND AWARE.
[2022-05-28 15:26] LABS: Chloride 104 mmol/L (98-107); Potassium 4.6 mmoL/L (3.5-5.1); Sodium 139 mmol/L (136-145)
[2022-05-28 15:29] LABS: Alanine Aminotransferase 17 U/L (12-78); Albumin Level 3.8 g/dl (3.5-5.0); Albumin/Globulin Ratio 1.5 (1.1-1.8); Alkaline Phosphatase 132 U/L (38-126); Anion Gap 15.6 mEq/L (5-15); Aspartate Amino Transferase 30 U/L (17-59); Bilirubin,Total 0.5 mg/dl (0.2-1.3); Blood Urea Nitrogen 21 mg/dl (9-20); Carbon Dioxide 24 mmol/L (22.0-30.0); Creatinine Clearance Estimated 65 mL/min (50-200); Estimated Glomerular Filt Rate 53 ml/min (>60); GFR (African American) 64 ML/MIN (>60); Globulin 2.5 g/dL (1.3-3.2); Total Protein,Serum 6.3 g/dl (6.3-8.2)
[2022-05-28 15:30] LABS: Calcium 8.3 mg/dl (8.4-10.2); Glucose 309 mg/dl (74-100)
[2022-05-28 15:38] LABS: Coronavirus 19, PCR Not Detected (NotDetected); Influenza A, PCR Not Detected (NotDetected); Influenza B, PCR Not Detected (NotDetected)
--- NOTE | 2022-05-28 16:15 | PC.NURSE ---
MD AT BEDSIDE TO UPDATE PT AND ON POC
--- NOTE | 2022-05-28 16:25 | PC.NURSE ---
CONSENT SIGNED FOR BLOOD AT THIS TIME
[2022-05-28 16:26] LABS: Lactate Dehydrogenase 182 U/L (313-618)
--- NOTE | 2022-05-28 17:52 | PC.NURSE ---
SUPPER TRAY SET-UP FOR PT
--- NOTE | 2022-05-28 18:13 | PC.NURSE ---
1750: BLOOD TRANSFUSION HANDED OFF TO Iveth MEJIA RN, PATIENT'S PRIMARY RN. PATIENT SITTING UP IN BED WITH NO C/O. NLizzie SOLIZ RN AND I REPOSITIONED PATIENT IN BED AND SAT HIM UP TO EAT HIS SUPPER TRAY. PATIENT'S AT BEDSIDE. I OFFERED PATIENT A BLANKET BUT HE DECLINED AT THIS TIME.
--- NOTE | 2022-05-28 18:28 | PC.NURSE ---
ROUNDED ON PT AT THIS TIME, TOLERATING BLOOD TRANSFUSION. NO NEEDS AT THIS TIME
[2022-05-28 20:58] LABS: Hematocrit 27.3 % (42.0-52.0)
[2022-05-28 21:09] LABS: Hemoglobin 8.1 g/dL (14.1-18.0)
== END 2022-05-28 21:34 | disposition home or self-care (01) ==
PROVIDERS: Emergency Provider Emergency Medicine; PCP Family Medicine
DX: D64.9 Anemia, unspecified (principal); Z79.01 Long term (current) use of anticoagulants; Z95.1 Presence of aortocoronary bypass graft; I10 Essential (primary) hypertension; E78.5 Hyperlipidemia, unspecified; I25.10 Atherosclerotic heart disease of native coronary artery without angina pectoris; J44.9 Chronic obstructive pulmonary disease, unspecified; N18.9 Chronic kidney disease, unspecified; E11.9 Type 2 diabetes mellitus without complications; I73.9 Peripheral vascular disease, unspecified; I48.91 Unspecified atrial fibrillation; K21.9 Gastro-esophageal reflux disease without esophagitis; Z88.2 Allergy status to sulfonamides; Z88.6 Allergy status to analgesic agent
CPT/HCPCS: 36430; 80053; 83615; 85014; 85018; 85025; 85044; 86850; 99285; C9803; P9016; U0003; U0005

== ENCOUNTER → 2022-06-01 16:50 | Outpatient (CLI) | payer MEDICARE, SELFPAY ==
[2022-06-01 19:43] LABS: Basophils # 0.1 K/mm3 (0-0.2); Basophils % 0.6 % (0.1-2.0); Eosinophils # 0.2 K/mm3 (0.0-0.4); Eosinophils % 2.2 % (0.1-12.0); Hemoglobin 8.4 g/dL (14.1-18.0); Lymphocytes # 1.3 K/mm3 (0.7-4.5); Lymphocytes % 12.9 % (10-50); Mean Corpuscular Hemoglobin 19.2 pg (27.0-31.2); Mean Corpuscular Volume 66.3 fl (80-94); Mean Platelet Volume 7.8 fl (7.4-10.4); Monocytes # 0.5 K/mm3 (0.1-1.0); Monocytes % 5.3 % (1.7-9.3); Neutrophils # 7.7 K/mm3 (1.8-7.8); Platelet Count 405 K/mm3 (142-424); Red Blood Count 4.37 M/mm3 (4.60-6.20); Red Cell Distribution Width 20.8 % (11.5-17.5); White Blood Count 9.7 K/mm3 (4.8-10.8)
== END ==
PROVIDERS: PCP Family Medicine; Visit Provider Family Medicine
DX: D64.9 Anemia, unspecified (principal); R07.89 Other chest pain
CPT/HCPCS: 85025

== ENCOUNTER 2022-06-23 15:00 | Outpatient (RCR) | payer MEDICARE, SELFPAY | END 2022-06-23 15:05 | disposition home or self-care (01) | LOC: PT 15:00 | PROVIDERS: PCP Family Medicine; Visit Provider Family Medicine | DX: R53.1 Weakness (principal); R26.81 Unsteadiness on feet; Z74.09 Other reduced mobility | CPT/HCPCS: 97110; 97163; 97164 ==

== ENCOUNTER 2022-06-30 09:36 | Inpatient (IN) | payer MEDICARE, SELFPAY ==
[2022-06-30] VITALS (30 sets, daily range): BP systolic 122–178; BP diastolic 40–82; PULSE 64–88; RESP 14–20; TEMP 36.7–37.2; O2SAT 95–99; BMI 35.0; BMI 35.4
--- NOTE | 2022-06-30 10:10 | HMH.EDGENADL ---
Discharge Plan Disposition Patient Disposition: Admitted as Observation Condition: Fair Chief Complaint: Back Pain/Injury Prescriptions Prescriptions: No Action Stiolto Respimat 2.5-2.5 mcg/actuation mist 2 puff inhalation DAILY 90 Days Qty: 4 3RF albuterol sulfate 90 mcg/actuation HFA aerosol inhaler 2 inh inhalation Q6H PRN (Reason: shortness of breath or wheezing) 90 Days Qty: 8.5 3RF gabapentin 300 mg capsule 300 mg PO BID Qty: 60 5RF rosuvastatin 40 mg tablet 40 mg PO HS Qty: 90 3RF cyclobenzaprine 10 mg tablet 10 mg PO TID PRN (Reason: muscle spasm) Qty: 30 3RF Eligard (6 month) 45 mg syringe 45 mg SQ [id number] Qty: 1 2RF verapamil 120 MG capsule,ext rel. pellets 24 hr 120 mg PO DAILY clopidogrel 75 mg tablet See Rx Instructions .ROUTE .COMPLEX Rx Instructions: TAKE 1 TABLET EVERY DAY spironolactone 25 mg tablet 25 mg PO DAILY gemfibrozil 600 mg tablet See Rx Instructions .ROUTE .COMPLEX Rx Instructions: TAKE 1 TABLET TWICE DAILY FOR CHOLESTEROL pantoprazole 40 mg tablet,delayed release (DR/EC) See Rx Instructions .ROUTE .COMPLEX Rx Instructions: TAKE 1 TABLET EVERY DAY insulin aspart U-100 [Novolog Flexpen U-100 Insulin] 100 unit/mL (3 mL) insulin pen See Rx Instructions .ROUTE .COMPLEX Rx Instructions: 15 units if blood sugar exceeds 400; empagliflozin 10 mg tablet 10 mg PO DAILY sacubitril-valsartan 24-26 mg tablet 1 each PO BID torsemide 40 mg tablet 40 mg PO DAILY tiotropium-olodaterol 4 GM mist 2 puffs IH DAILY insulin regular hum U-500 conc 500 UNIT/ML insulin pen 100 unit SQ QPMWITHMEAL insulin regular hum U-500 conc 500 UNIT/ML insulin pen 250 unit SQ AM polyethylene glycol 3350 238 GM powder 17 g PO BID Referrals Follow up/Referrals: Andres Valencia MD [Primary Care Provider] - See instructions Clinical Impressions Clinical Impression: Closed compression fracture of thoracic vertebra, Anemia, Acute hyperglycemia Instructions Patient Instructions: DI for Low Back Pain Discharge ED Provider: Deondre Parker Adult [facility] General Chief complaint: Back Pain/Injury Stated complaint: back pain Time Seen by Provider: 11/30/22 09:57 Mode of Arrival: Ambulatory Source of Information: Patient Limitations: No Limitations Description of Symptoms (Recalled from ER Triage Doc. by RN): pt to ed c/o lower back spasms that started last night. pt states a prior hx of a back injury. History of Present Illness HPI narrative: Patient is brought in by ambulance. He complains of pain in his left side going around to his back since last night. Describes it as a spasm . He says whenever he tries to turn onto his side he gets severe paroxysms of pain. No current injury, but states that he broke his back in October when he fell out of the bed and this hospital. He has had some back problems ever since then, but states that this is different. He does not think that this is due to his broken back because if it was I would not be able to move my legs like this . He was on hydrocodone for his back but says that his took them from him and he had them because she was afraid he was going to become addicted to them. She says that she gave him 1 last night but it has not helped. Related Data Home Medications Medication Instructions Recorded Confirmed tiotropium 2.5 mcg-olodaterol 2.5 2 puffs inhalation DAILY COPD 09/17/21 06/08/22 mcg/actuation mist for inhalation insulin regular hum U-500 conc 500 100 unit SQ QPMWITHMEAL Diabetes 09/20/21 06/08/22 unit/mL(3 mL) subcut pen insulin regular hum U-500 conc 500 250 unit SQ AM Diabetes 09/20/21 06/08/22 unit/mL(3 mL) subcut pen verapamil 120 mg 24 hr 120 mg PO DAILY HEART RATE 11/27/21 06/08/22 capsule,extended release polyethylene glycol 3350 17 17 g PO BID CONSTIPATION 01/04/22 06/08/22 gram/dose oral
[2022-06-30 10:34] LABS: Basophils % 0.4 % (0.1-2.0); Eosinophils # 0.2 K/mm3 (0.0-0.4); Eosinophils % 1.8 % (0.1-12.0); Hematocrit 23.6 % (42.0-52.0); Lymphocytes # 0.6 K/mm3 (0.7-4.5); Lymphocytes % 7.1 % (10-50); Mean Corpuscular HGB Conc 28.4 g/dL (31.8-35.4); Mean Corpuscular Hemoglobin 18.6 pg (27.0-31.2); Mean Corpuscular Volume 65.6 fl (80-94); Mean Platelet Volume 7.8 fl (7.4-10.4); Monocytes # 0.3 K/mm3 (0.1-1.0); Monocytes % 3.7 % (1.7-9.3); Neutrophils # 7.8 K/mm3 (1.8-7.8); Neutrophils % 86.9 % (37.0-80.0); Platelet Count 318 K/mm3 (142-424); Red Blood Count 3.61 M/mm3 (4.60-6.20); Red Cell Distribution Width 21.5 % (11.5-17.5)
[2022-06-30 10:35] LABS: Hemoglobin 6.7 g/dL (14.1-18.0)
[2022-06-30 10:36] LABS: MANUAL DIFFERENTIAL MANUAL DIFFERENTIAL (MANUAL DIFF)
--- NOTE | 2022-06-30 10:36 | PC.NURSE ---
aware of hemoglobin of 6.7
--- NOTE | 2022-06-30 10:43 | PC.NURSE ---
pt aware urine sample needed. urinal at the bedside
[2022-06-30 10:44] LABS: Alanine Aminotransferase 14 U/L (12-78); Albumin Level 3.8 g/dl (3.5-5.0); Albumin/Globulin Ratio 1.4 (1.1-1.8); Alkaline Phosphatase 173 U/L (38-126); Anion Gap 14.4 mEq/L (5-15); Aspartate Amino Transferase 23 U/L (17-59); Bilirubin,Total 0.6 mg/dl (0.2-1.3); Blood Urea Nitrogen 27 mg/dl (9-20); Calcium 8.7 mg/dl (8.4-10.2); Carbon Dioxide 24 mmol/L (22.0-30.0); Chloride 101 mmol/L (98-107); Creatinine Clearance Estimated 53 mL/min (50-200); Estimated Glomerular Filt Rate 42 ml/min (>60); GFR (African American) 51 ML/MIN (>60); Globulin 2.7 g/dL (1.3-3.2); Lipase 65 U/L (23-300); Potassium 4.4 mmoL/L (3.5-5.1); Sodium 135 mmol/L (136-145); Total Protein,Serum 6.5 g/dl (6.3-8.2)
[2022-06-30 10:46] LABS: Glucose 437 mg/dl (74-100)
--- NOTE | 2022-06-30 10:49 | PC.NURSE ---
lab called with critical glucose of 437 md aware
--- NOTE | 2022-06-30 10:50 | CT_ITS ---
FINAL REPORT TECHNIQUE: Axial CT images of the thoracic spine were obtained without contrast. Sagittal and coronal reformatted images were also obtained. This study was performed with techniques to keep radiation doses as low as reasonably achievable (ALARA). Individualized dose reduction techniques using automated exposure control or adjustment of mA and/or kV according to the patient's size were employed. CLINICAL HISTORY: Mid-LBP FINDINGS: There is 70% compression of T12 with mild retropulsion of the superior endplate. There remaining vertebrae are normal height. The vertebral alignment is normal. There is moderate compromise on the spinal canal with [id number] bilateral neural foraminal narrowing at T11-T12. No paraspinous soft tissue abnormality is identified. Note is made of small bilateral pleural effusions with overlying atelectasis. IMPRESSION: 70% compression of T12 with moderate spinal canal and aefe-em-hjmsccun bilateral neural foraminal narrowing. Reviewed, Interpreted and Dictated by Rogelio Wayne MD Transcribed by Michael Queen Authenticated and [facility]
--- NOTE | 2022-06-30 10:50 | CT_ITS ---
FINAL REPORT TECHNIQUE: Axial images were performed through the lumbar spine by computed tomography. Sagittal reconstruction images were also performed. This study was performed with techniques to keep radiation doses as low as reasonably achievable, (ALARA). Individualized dose reduction techniques using automated exposure control or adjustment of mA and/or kV according to the patient''s size were employed. CLINICAL HISTORY: LBP FINDINGS: Sagittal reconstruction images demonstrate the lumbar vertebrae to be normal height. There is 70% compression of T12. See report from thoracic CT. The disk heights are preserved. Axial imaging demonstrates a fcwb-og-gksswmfr diffuse disc bulge at L4-L5 with dzzk-ra-puituits spinal canal and mild bilateral neural foraminal narrowing. At L5-S1 there is a mild diffuse disc bulge with mild bilateral neural foraminal narrowing. Note is made of a stent in the right external iliac artery. IMPRESSION: No acute lumbar fracture. See report from thoracic CT. Reviewed, Interpreted and Dictated by Rogelio Wayne MD Transcribed by Michael Queen Authenticated and [facility]
--- NOTE | 2022-06-30 10:50 | CT_ITS ---
FINAL REPORT CLINICAL HISTORY: pain L ribs/chest FINDINGS: Axial images were obtained from the lung apex to the mid abdomen by computed tomography after the administration of IV contrast. Coronal reformatted images were obtained. This study was performed with techniques to keep radiation doses as low as reasonably achievable, (ALARA). Individualized dose reduction techniques using automated exposure control or adjustment of mA and/or kV according to the patient's size were employed. There is an 8 mm nodule in the right lobe of the thyroid. No follow-up is recommended. There are multiple sternotomy wires. There has been CABG. There is no axillary adenopathy. There are few small scattered mediastinal lymph nodes favored to be reactive. There are small right hilar and subcarinal lymph nodes also favored to be reactive. Heart size is normal. There are small bilateral pleural effusions. There is bibasilar atelectasis. Limited images of the upper abdomen demonstrate gallstones or sludge in the gallbladder. IMPRESSION: Mild adenopathy favored to be reactive. Follow-up CT in 3 months could ensure stability or involution. Reviewed, Interpreted and Dictated by Rogelio Wayne MD Transcribed by Michael Queen Authenticated and [facility]
--- NOTE | 2022-06-30 10:50 | CT_ITS ---
FINAL REPORT TECHNIQUE: Postcontrast axial images through the abdomen and pelvis were performed. This study was performed with techniques to keep radiation doses as low as reasonably achievable, (ALARA). Individualized dose reduction techniques using automated exposure control or adjustment of mA and/or kV according to the patient's size were employed. CLINICAL HISTORY: C/o lwr rib pain/ upper abd pain. FINDINGS: Abdomen: There are small bilateral pleural effusions and bibasilar atelectasis. The liver is mildly enlarged measuring 18.5 cm. There are multiple gallstones or sludge in the gallbladder. The spleen is unremarkable. The adrenals are normal. The pancreas is unremarkable. The kidneys enhance appropriately. The aorta is normal in caliber. No free fluid or adenopathy is identified. No findings for mechanical bowel obstruction are identified. There are postoperative changes in the right inguinal region. A stent is seen in the right external iliac artery. There is a 70% compression deformity of T12 with retropulsion of the superior endplate, age indeterminate. The ribs are intact. Pelvis: The appendix is not identified. The urinary bladder is unremarkable. No free fluid, free air, abscess or adenopathy is identified. IMPRESSION: Ribs are intact. Age indeterminate compression deformity of T12. Sludge or stones in the gallbladder. Mild hepatomegaly. Reviewed, Interpreted and Dictated by Rogelio Wayne MD Transcribed by Tish Resendez Authenticated and [facility]
[2022-06-30 11:10] LABS: Lymphocytes % 11 % (10-50); Monocytes % 7 % (2-9); Neutrophils % 82 % (42-76); Total Cells Counted 100
[2022-06-30 11:11] LABS: Anisocytosis 1+; Hypochromasia 1+; Microcytosis 1+; Ovalocytes 1+; Platelet Estimate Normal
--- NOTE | 2022-06-30 11:44 | PC.NURSE ---
PT GOING OVER FOR CT'S
--- NOTE | 2022-06-30 12:37 | PC.NURSE ---
langley inserted at this time. pt unable to urinate and is c/o retention. 1000ml emptied from bladder
[2022-06-30 12:42] LABS: Microscopic, Urine URINE MICROSCOPIC (MICROSCOPIC)
[2022-06-30 12:56] LABS: Appearance,Urine CLEAR (Clear); Bilirubin,Urine Negative (Negative); Blood, Urine TRACE-I (Negative); Color,Urine YELLOW (Yellow); Glucose,Urine (UA) 3+ (Negative); Ketones,Urine Negative (Negative); Leukocyte Esterase,Urine Negative (Negative); Nitrate,Urine Negative (Negative); Protein,Urine 1+ (Negative); Urobilinogen,Urine 0.2 EU/dl (0.2)
[2022-06-30 13:09] LABS: Amorphous Sediment,Urine 1+ /lpf; Bacteria,Urine Trace /lpf; RBC,Urine Occasional #/hpf (0-3)
--- NOTE | 2022-06-30 13:11 | PC.NURSE ---
at the bedside
--- NOTE | 2022-06-30 13:37 | PC.NURSE ---
ER doctor asked to call Dr. Abraham at the medical [facility] to consult about the pt
--- NOTE | 2022-06-30 13:39 | PC.NURSE ---
ER doctor spoke with Gabriela the behavioral medical director due to Dr Abraham being in surgery
--- NOTE | 2022-06-30 14:30 | PC.NURSE ---
lab notified me that blood was ready, HS contacted and will get blood and start it
--- NOTE | 2022-06-30 15:20 | PC.NURSE ---
DR MITCHELL SPOKE DR DE LEON HAS AGREED TO ADMIT PT CARE MANAGEMENT CALLED
--- NOTE | 2022-06-30 16:06 | PC.NURSE ---
PT HAS 1000CC OUT
--- NOTE | 2022-06-30 16:45 | PC.NURSE ---
patient arrived to floor by stretcher from ED
--- NOTE | 2022-06-30 18:37 | EXP.HP ---
History of Present Illness *Admission Date: 06/30/22 *Reason for visit:: back pain *History of present illness: Mr. Powell is a 82-year-old male in obvious pain. Brought into the ER by EMS due to complaint of left-sided pain going around to his back that is worsened since last night. Has been having back pain since November when he fell. Imaging at that time did not show significant compression fracture, did have some mild degenerative changes. Pain has gotten worse over the past several days more acutely. Denies any new falls or trauma. Pain is spasming in nature, cramping. Almost taking his breath away when it occurs. Worse when he turns to the side. Denies any distal neurologic deficits. Is able to move his legs. Has sensation in his lower extremities. He had been taking hydrocodone for his back but reportedly it was stopped by his doctors. However ER was informed that his had weaned his dose down. He did take 1 dose last night that did not help very much. He denies any chest pain, shortness of breath beyond baseline, nausea or vomiting or diarrhea. Does report some confusion because of the pain and it makes it difficult for him to think. Reports he has significant history of diabetes, chronic oxygen requirement because of COPD, hypertension, history of stents over 8 years ago for which she is on daily Plavix still. Labs remarkable for anemia and hyperglycemia. He is not sure why he continues to be anemic which seems to be longstanding. [facility], does not want to be transferred however. Did not mention [facility]. Patient not able to give clear history of his medications, aided in history but was also a poor historian. [facility] Disclaimer: The information contained in this section may have been updated after the patient was seen, as this information can be updated by other users. Medical History Abnormal EKG Atypical angina JUAN FRANCISCO (cerebral atherosclerosis) Chronic hypoxemic respiratory failure Claudication COPD (chronic obstructive pulmonary disease) Diabetes mellitus Dyspnea on exertion Edema HHD (hypertensive heart disease) Lung nodule Multiple pulmonary nodules Paroxysmal atrial fibrillation Pre-op evaluation Pulmonary emphysema Sleep apnea Stopped smoking with greater than 30 pack year history Surgical History History of heart artery stent History of prostate surgery Family History Diabetes Coronary artery disease Anemia Hyperlipidemia Heart attack Hypertension Stroke Social History Smoking Status: Never smoker second hand exposure: No alcohol intake: never substance use type: denies use current occupational status: unemployed Travel in the last 8 weeks: None household members: spouse housing: house current occupational exposures/hazards: No caffeine: Yes Review of Systems Review of Systems Review of systems (narrative): 14 point review of systems performed, pertinent positives and negatives as per HPI Constitutional Constitutional: Denies headache(s) and Denies weakness ENT Ears, Nose, Mouth, and Throat: Denies headache(s) *Musculoskeletal Musculoskeletal: Denies numbness *Neurologic Neurologic: Denies headache(s), Denies numbness and Denies weakness Meds Home Medications and Allergies Home Medications Medication Instructions Recorded Confirmed Type tiotropium 2.5 mcg-olodaterol 2.5 2 puffs inhalation DAILY COPD 09/17/21 06/08/22 History mcg/actuation mist for inhalation insulin regular hum U-500 conc 500 100 unit SQ QPMWITHMEAL Diabetes 09/20/21 06/08/22 History unit/mL(3 mL) subcut pen insulin regular hum U-500 conc 500 250 unit SQ AM Diabetes 09/20/21 06/08/22 History unit/mL(3 mL) subcut pen verapamil 120 mg 24 hr 120 mg PO DAILY
[2022-06-30 20:19] LABS: Hemoglobin A1C 8.3 % (4.0-6.0)
[2022-06-30 22:55] LABS: Hemoglobin 8.3 g/dL (14.1-18.0)
[2022-07-01] VITALS (7 sets, daily range): BP systolic 101–147; BP diastolic 43–63; PULSE 51–78; RESP 18–24; TEMP 36.2–37.2; O2SAT 91–98; BMI 36.0
--- NOTE | 2022-07-01 05:31 | PC.NURSE ---
pt is alert and oriented x4, V/S remain stable, pt remains at bedside through the night, f/c to bsd with cyu noted, pt refuses to turn and states it hurts to bad to turn or sit up, no acute distress noted, elevated blood sugars covered with ssi, skin pwd, no acute distress, no other issues or concerns noted at this time.
[2022-07-01 06:30] LABS: POC Glucose,Bedside 420 (70-110)
[2022-07-01 06:30] LABS: POC Glucose,Bedside 408 (70-110)
[2022-07-01 06:31] LABS: Basophils % 0.4 % (0.1-2.0); Eosinophils # 0.2 K/mm3 (0.0-0.4); Eosinophils % 2.3 % (0.1-12.0); Hematocrit 27.9 % (42.0-52.0); Hemoglobin 8.2 g/dL (14.1-18.0); Lymphocytes # 0.9 K/mm3 (0.7-4.5); Mean Corpuscular HGB Conc 29.4 g/dL (31.8-35.4); Mean Corpuscular Hemoglobin 20.8 pg (27.0-31.2); Mean Corpuscular Volume 70.6 fl (80-94); Mean Platelet Volume 7.8 fl (7.4-10.4); Monocytes # 0.5 K/mm3 (0.1-1.0); Neutrophils % 83.3 % (37.0-80.0); Platelet Count 278 K/mm3 (142-424); Red Blood Count 3.95 M/mm3 (4.60-6.20); Red Cell Distribution Width 23.9 % (11.5-17.5); White Blood Count 9.6 K/mm3 (4.8-10.8)
[2022-07-01 06:34] LABS: Chloride 104 mmol/L (98-107); Sodium 133 mmol/L (136-145)
[2022-07-01 06:35] LABS: Potassium 4.4 mmoL/L (3.5-5.1)
[2022-07-01 06:37] LABS: Alanine Aminotransferase 9 U/L (12-78); Albumin Level 3.3 g/dl (3.5-5.0); Albumin/Globulin Ratio 1.3 (1.1-1.8); Alkaline Phosphatase 131 U/L (38-126); Anion Gap 9.4 mEq/L (5-15); Aspartate Amino Transferase 16 U/L (17-59); Bilirubin,Total 0.6 mg/dl (0.2-1.3); Blood Urea Nitrogen 29 mg/dl (9-20); Calcium 8.4 mg/dl (8.4-10.2); Carbon Dioxide 24 mmol/L (22.0-30.0); Creatinine Clearance Estimated 41 mL/min (50-200); Estimated Glomerular Filt Rate 31 ml/min (>60); GFR (African American) 37 ML/MIN (>60); Globulin 2.5 g/dL (1.3-3.2); Glucose 378 mg/dl (74-100); Magnesium 2.1 mg/dl (1.6-2.3); Total Protein,Serum 5.8 g/dl (6.3-8.2)
--- NOTE | 2022-07-01 07:35 | MR_ITS ---
FINAL REPORT CLINICAL HISTORY: t12 compression fracture, assess nerve compression. patient had a hard time staying still. sent over best images. FINDINGS: Multiplanar MR imaging of the thoracic spine was performed without contrast. On the sagittal T2-weighted images, there is abnormal decreased signal in the mid thoracic discs. There is 50-60% compression of T12 with marrow edema consistent with acute or subacute fracture. There is mild edema in the inferior endplate of T11. There is mild retropulsion of the superior endplate of T12. There is mild spinal canal stenosis and moderate to high-grade bilateral neural foraminal narrowing at T11-T12. IMPRESSION: 50-60% compression of T12 with associated edema and retropulsion of the superior endplate resulting in mild spinal canal stenosis and moderate to high-grade bilateral neural foraminal narrowing. Reviewed, Interpreted and Dictated by Rogelio Wayne MD Transcribed by Michael Queen Authenticated and [facility]
[2022-07-01 07:52] LABS: Iron 28 ug/dL (49-181)
[2022-07-01 08:01] LABS: Total Iron Binding Capacity 340 ug/dL (261-462)
[2022-07-01 08:25] LABS: Vitamin B12 878 pg/mL (239-931)
--- NOTE | 2022-07-01 08:34 | HMH.PHAINT1 ---
Pharmacy Intervention Comments: Medication reconciliation completed via chart review, external fill history, and reported medication regimen from spouse. Patient and spouse are not great historians and report patient is taking medications despite fills per pharmacy. -Dionne Alaniz, PharmD Candidate 2022
[2022-07-01 10:18] LABS: Coronavirus 19, PCR Not Detected (NotDetected); Influenza A, PCR Not Detected (NotDetected); Influenza B, PCR Not Detected (NotDetected)
--- NOTE | 2022-07-01 10:44 | HMH.OTEV ---
OT Inpatient Evaluation Rehab OT IP Evaluation Start: 07/01/22 09:35 Freq: ONCE Status: Complete Protocol: Document 07/01/22 10:[address] [facility] (Rec: 07/01/22 10:[address] [facility] [id number]) Rehab OT IP Assessment Subjective History Pt oriented x 4 on arrival. Pt agreeable to engage in therapy evaluation; pt's present and supportive of evaluation. Pt was admitted via ED on 06/30/22 due to back pain. Pt's main complaint was left-sided pain going around to his back that worsened over night. Pt has been having back pain since November when he fell. Pt's MRI showed a compression fx of T12 . Prior to being in the hosptial, pt lived at home with his . Pt claims he was independent with all ADLs such as feeding, dressing, and bathing. Pt was dependent upon his for completion of all IADLs. Pt did use walker during ambulation. Pt has a past medical history of: Abnormal EKG Atypical angina JUAN FRANCISCO (cerebral atherosclerosis) Chronic hypoxemic respiratory failure Claudication COPD (chronic obstructive pulmonary disease) Diabetes mellitus Dyspnea on exertion Edema HHD (hypertensive heart disease) Lung nodule Multiple pulmonary nodules Paroxysmal atrial fibrillation Pre-op evaluation Pulmonary emphysema Sleep apnea Stopped smoking with greater than 30 pack year history Subjective I am in too much pain. Objective Patient Orientation Person,Place,Birthday,Year Upper Extremity Gross ROM WFL Bed Mobility bed mobility-scoo
--- NOTE | 2022-07-01 10:58 | HMH.PTEV ---
Physical Therapy Evaluation Rehab PT IP Evaluation Start: 07/01/22 09:35 Freq: ONCE Status: Active Protocol: Document 07/01/22 10:51 RAQUELAME (Rec: 07/01/22 10:58 JOSE [id number]) Subjective/History History History Mr. Powell is a 82-year-old male in obvious pain. Brought into the ER by EMS due to complaint of left-sided pain going around to his back that is worsened since last night. Has been having back pain since November when he fell. Imaging at that time did not show significant compression fracture, did have some mild degenerative changes. Pain has gotten worse over the past several days more acutely. Denies any new falls or trauma . Pain is spasming in nature, cramping. Almost taking his breath away when it occurs. Subjective Subjective Pt c/o severe pain w/ rolling, supine/sit and stand transfer - pt reports I w/ all prior LOF Rehab PT IP Eval Objective Appearance Patient Behavior Guarded,Fearful Patient Orientation Place,Name,Birthday,Year, Situation Difficulty following instructions none Speech Pattern Appropriate Ambulation Patient Able to Ambulate Yes Balance Ability to Arise Unable Sitting Balance Leans or slides in chair Standing Balance Unsteady Dynamic Sitting Balance Ability Fair Dynamic Standing Balance Ability Poor Transfers Bed Transfer Ability Moderate x 2 (50% assist) Sit to Stand Bed Transfer Ability Moderate x 2 (50% assist) Rehab PT IP prob,goals,plan Problems Date of Evaluation: 07/01/22 PT IP Problems Bed Mobility,Transfers,Gait, Balance,Self care,Safety Rehab Potential Rehab Potential Fair Equipment Needs Assistive Devices Rolling / Wheeled Walker, Wheelchair Plan PT Intervention Plan Bed Mobility,Transfers,Gait, Balance,Self care,Safety, Therapeutic Exercise PT Plan Frequency BID Duration LOS Discharge Goals Bed Transfer Ability Moderate x 2 (50% assist) Sit to St
[2022-07-01 11:51] LABS: POC Glucose,Bedside 322 (70-110)
--- NOTE | 2022-07-01 12:57 | EXP.PAIN.OV ---
HPI Data of Consult Patient: new to practice Consult date: 07/01/22 Requesting Physician: Crow Urena MD Primary Care Provider: Andres Valencia MD Consult Narrative Reason for consult: Mid back pain, compression fracture T12 History of present illness: Mr. Pemberton is a 82 year old male who presents today as a new patient consult. He is a referral from Dr. Rom Valencia's office. Patient is experiencing significant pain in his mid back due to a fall that happened around the end of October to 29 November this year. Patient states that he was having a sleep study done and had finished up and was told he can get up from the bed. Patient states that no one was present in the room when he tried to get up and he ended up falling onto the concrete floor. Patient did hit his face side and hip and was immediately seen with imaging and by Dr. Heard. At that time Dr. Heard told the patient and his that there were no fractures however the following day they did go and see Dr. Valencia who stated he did have a T12 compression fracture. Patient's pain was being managed with hydrocodone however over the last several days it has gotten worse and he was now admitted to [facility] for pain control. Patient describes this pain as constant. Patient did appear to fall asleep at different times during our meeting. Patients was available to also give history regarding the fall, medications and events that took place. Patient had previously stated the pain was a constant spasm with cramping and took his breath away due to the pain. Patient previously stated that it was worse when he turns from side to side. Patient does have a history of COPD, hypertension, history of cardiac stents, diabetes, chronic oxygen requirement. Patient is on Plavix daily. Patient is prescribed gabapentin 300 mg twice a day from his primary care doctor. His Bill is [id number]. It has been reviewed and appropriate. CC: Crow Urena MD [facility] Disclaimer: The information contained in this section may have been updated after the patient was seen, as this information can be updated by other users. Medical History Abnormal EKG Atypical angina JUAN FRANCISCO (cerebral atherosclerosis) Chronic hypoxemic respiratory failure Claudication COPD (chronic obstructive pulmonary disease) Diabetes mellitus Dyspnea on exertion Edema HHD (hypertensive heart disease) Lung nodule Multiple pulmonary nodules Paroxysmal atrial fibrillation Pre-op evaluation Pulmonary emphysema Sleep apnea Stopped smoking with greater than 30 pack year history Surgical History History of heart artery stent History of prostate surgery Family History Diabetes Coronary artery disease Anemia Hyperlipidemia Heart attack Hypertension Stroke Social History Smoking Status: Never smoker second hand exposure: No alcohol intake: never substance use type: denies use current occupational status: unemployed Travel in the last 8 weeks: None household members: spouse housing: house current occupational exposures/hazards: No caffeine: Yes Review of Systems Review of Systems Review of systems:: pertinent systems reviewed and negative unless documented below Review of systems (narrative): Review of Systems: General: No recent weight changes, no fever, no sleep disturbances Respiratory: No cough, no shortness of air, no recurring pulmonary infections Cardiovascular/peripheral vascular: No chest pain, no palpitations, no edema, no shortness of breath Gastrointestinal: No new onset incontinence, normal bowel movements reported Genitourinary: No new onset incontinence Musculoskeletal: Low back pain Psychiatric: [Normal mood/affect] Neurological: [Denies weakness in extremities], [denies balance issues] Constitutional Constitutional:
[2022-07-01 17:42] LABS: POC Glucose,Bedside 301 (70-110)
--- NOTE | 2022-07-01 19:56 | XR_ITS ---
PROCEDURE INFORMATION: Exam: XR Chest Exam date and time: 07/01/2022 8:00 PM Age: 82 years old Clinical indication: Shortness of breath; Patient HX: Patient was very difficult to wake up by nursing staff. Decreased vital signs. ; Additional info: Non responsive TECHNIQUE: Imaging protocol: Radiologic exam of the chest. Views: 1 view. COMPARISON: CT CHEST W CON 06/30/2022 11:51 AM FINDINGS: Lungs: Possible bibasilar airspace disease. Pleural spaces: Unremarkable. No pleural effusion. No pneumothorax. Heart/Mediastinum: Cardiomegaly. Vasculature: Status post median sternotomy and coronary artery bypass. Bones/joints: Unremarkable. IMPRESSION: Possible bibasilar airspace disease. Pneumonia could have this appearance in the appropriate clinical setting. Recommend 6 week follow-up standing PA and lateral chest radiographs to confirm complete resolution.
--- NOTE | 2022-07-01 19:56 | EXP.ACUTE.PN ---
Subjective *Date: 07/01/22 *Time: 13:56 Interval history: Pain doing better as long as he does not move. Not had pain meds for 12 hours by morning rounds. Discussed working with physical therapy today, patient resistant to moving however agreed to get up with therapy when they went to his room. Tolerating p.o. intake. No nausea or vomiting. No diarrhea or chest pain. Spasms improved with muscle relaxer. Medical Exam Vital signs and Labs for Last 24 Hours: Vital Signs Temp Pulse Pulse Resp BP BP Pulse Ox 07/01/22 16:00 99 F 65 24 125/53 L 95 07/01/22 08:00 98.4 F 72 23 141/55 H 95 07/01/22 04:00 97.2 F L 68 18 121/48 L 96 06/30/22 21:15 98.8 F 78 20 156/66 H 97 07/01/22 00:00 98.8 F 78 18 117/43 L 96 07/01/22 00:00 96 06/30/22 20:00 78 96 06/30/22 21:28 97 06/30/22 20:15 98.4 F 69 20 161/64 H 97 Intake and Output 07/01/22 07/01/22 07/01/22 07:59 15:59 23:59 Intake Total 100 / 760 240 / 760 420 / 760 Output Total 350 / 350 Balance -250 / 410 240 / 410 420 / 410 Intake: Intake, Oral Amount 100 / 760 240 / 760 420 / 760 Output: Output, Urine Amount 0 / 0 Output, Urine Amount (Catheter) 350 / 350 [place] 350 / 350 Other: Number of Unmeasured Voids 0 0 0 Weight 104.145 kg 104.145 kg Patient Weight 07/01/22 23:59 Weight 104.145 kg Laboratory Results - last 24 hr 06/30/22 10:26: Hemoglobin A1c 8.3 H 06/30/22 13:00: Crossmatch (AHG) See Detail 06/30/22 16:40: SARS-CoV-2 (PCR) Not detected, Influenza A Untype (PCR) Not detected, Influenza Type B (PCR) Not detected 06/30/22 19:45: POC Glucose 420 H* 06/30/22 22:34: Hgb 8.3 L D, Hct 29.0 L 07/01/22 06:11: POC Glucose 408 H* 07/01/22 06:12: WBC 9.6, RBC 3.95 L, Hgb 8.2 L, Hct 27.9 L, MCV 70.6 L, MCH 20.8 L, MCHC 29.4 L, RDW 23.9 H, Plt Count 278, MPV 7.8, Neut % (Auto) 83.3 H, Lymph % (Auto) 9.0 L, [place] % (Auto) 5.0, Eos % (Auto) 2.3, Baso % (Auto) 0.4, Neut # (Auto) 8.0 H, Lymph # (Auto) 0.9, [place] # (Auto) 0.5, Eos # (Auto) 0.2, Baso # (Auto) 0.0 07/01/22 06:12: Sodium 133 L, Potassium 4.4, Chloride 104, Carbon Dioxide 24, Anion Gap 9.4, BUN 29 H, Creatinine 2.10 H D, Estimated Creat Clear 41, Estimated GFR 31 L, Est GFR ( Amer) 37 L D, Glucose 378 H, Calcium 8.4, Magnesium 2.1, Total Bilirubin 0.6, AST 16 L D, ALT 9 L D, Alkaline Phosphatase 131 H, Total Protein 5.8 L, Albumin 3.3 L D, Globulin 2.5, Albumin/Globulin Ratio 1.3 07/01/22 06:12: Iron 28 L, TIBC 340, Iron Saturation 8.62571 L, Vitamin B12 878 07/01/22 11:40: POC Glucose 322 H* 07/01/22 17:33: POC Glucose 301 H* I & O for Labs for Last 24 Hours: Intake & Output 06/28/22 06/29/22 06/30/22 07/01/22 23:59 23:59 23:59 23:59 Intake Total 500 / 500 760 / 760 Output Total 0 / 0 350 / 350 Balance 500 / 500 410 / 410 Weight 102.569 kg 104.145 kg Constitutional: Present mild distress, obese and chronically ill appearing Head: Present atraumatic and normocephalic ENT: Present normal exam Neck: Present normal inspection Respiratory: Present normal respiratory effort; Absent accessory muscle use Cardiac: Present Reg Rate and Rhythm GI: Present normal bowel sounds; Absent tenderness Extremities: Present normal inspection and full ROM Skin: Present intact; Absent erythema Neuro: Present Grossly Intact, alert, awake, oriented x 3 and moves all extremities Comment:: Poor insight to condition and treatment plan; neurovascularly intact in his legs grossly Assessment and Plan *Assessment and plan (1) Closed compression fracture of thoracic vertebra: Status: Acute Category: Medical Code(s): S22.000A - Wedge compression fracture of unspecified thoracic vertebra, initial encounter for closed fracture (2) Anemia: Status: Acute Category: Medical Code(s): D64.9 - Anemia, unspecified (3) Chronic hypoxemic respiratory failure: Status: Chronic Category: Med
--- NOTE | 2022-07-01 19:57 | PC.NURSE ---
Pt is A/Ox4. He got up to take a shower today, and sat on the side of the bed to eat dinner. He has tolerated his meals today. He is on 3L NC which is his baseline. He has no coomplaints or needs at this time.
--- NOTE | 2022-07-01 19:59 | ECG_ITS ---
APPROVED REPORT Exam: Resting ECG HR:66 bpm ECG Measurements Heart Rate 66 AXES NH 249 P 0 QRSd 140 QRS 51 QT 433 T 143 QTc 447 Conclusion SINUS RHYTHM WITH FIRST DEGREE AV BLOCK LEFT BUNDLE BRANCH BLOCK [120+ ms QRS DURATION, 80+ ms Q/S IN V1/V2, 85+ ms R IN I/aVL/V5/V6] ABNORMAL ECG UNCONFIRMED REPORT Electronically signed by : Rom Brady MD 07/03/2022 12:15:44
[2022-07-01 20:09] LABS: ABG Base Excess -3.4 mmol/L (-2.4-2.3); ABG Oxygen Saturation 96 % (90-100); ABG PCO2 39.5 mmhg (35.0-45.0); ABG PH 7.36 mmol/L (7.35-7.45); ABG PO2 83.4 mmhg (80-100); ABG TCO2 23.2 mmhg (23-27)
[2022-07-01 20:10] LABS: Allen's Test Patient Unable; Oxygen 3LPM %; Source Right Radial
[2022-07-01 20:27] LABS: Basophils % 0.4 % (0.1-2.0); Eosinophils # 0.2 K/mm3 (0.0-0.4); Eosinophils % 1.6 % (0.1-12.0); Hematocrit 27.2 % (42.0-52.0); Hemoglobin 8.1 g/dL (14.1-18.0); Lymphocytes # 1.1 K/mm3 (0.7-4.5); Lymphocytes % 10.5 % (10-50); Mean Corpuscular HGB Conc 29.9 g/dL (31.8-35.4); Mean Corpuscular Hemoglobin 20.9 pg (27.0-31.2); Mean Corpuscular Volume 69.8 fl (80-94); Mean Platelet Volume 8.2 fl (7.4-10.4); Monocytes # 0.6 K/mm3 (0.1-1.0); Monocytes % 5.8 % (1.7-9.3); Neutrophils # 8.5 K/mm3 (1.8-7.8); Neutrophils % 81.8 % (37.0-80.0); Platelet Count 321 K/mm3 (142-424); Red Cell Distribution Width 23.7 % (11.5-17.5); White Blood Count 10.4 K/mm3 (4.8-10.8)
--- NOTE | 2022-07-01 20:37 | PC.NURSE ---
1944 tech came and reported blood pressure 73/39, upon entering pt room, pt was non responsive to name calling, pt did respond to sternal rub, kylie sepulveda aprn was notified and was at bedside at 1949 to assess patient, manual b/p was 82/34, order for narcan was given and administered 0.5mg at 1953, lr was increased to 999/hr to bolus, labs ordered, chest xray ordered, ekg performed, results reviewed by Kylie Parmar APRN. pt became arousable after narcan given, b/p stable 127/65 at 2009, pt assessed for s/s of stroke by felix, pt is alert and oriented x4 at this time, and son remain at bedside.
[2022-07-01 20:49] LABS: Alanine Aminotransferase 13 U/L (12-78); Albumin Level 3.1 g/dl (3.5-5.0); Albumin/Globulin Ratio 1.2 (1.1-1.8); Alkaline Phosphatase 126 U/L (38-126); Anion Gap 11.1 mEq/L (5-15); Aspartate Amino Transferase 23 U/L (17-59); Bilirubin,Total 0.5 mg/dl (0.2-1.3); Blood Urea Nitrogen 38 mg/dl (9-20); Calcium 8.3 mg/dl (8.4-10.2); Carbon Dioxide 23 mmol/L (22.0-30.0); Chloride 105 mmol/L (98-107); Creatinine Clearance Estimated 30 mL/min (50-200); Estimated Glomerular Filt Rate 21 ml/min (>60); GFR (African American) 25 ML/MIN (>60); Globulin 2.6 g/dL (1.3-3.2); Glucose 297 mg/dl (74-100); Potassium 4.1 mmoL/L (3.5-5.1); Sodium 135 mmol/L (136-145); Total Protein,Serum 5.7 g/dl (6.3-8.2)
[2022-07-01 21:15] LABS: Lactic Acid 1.8 mmol/L (0.7-2.1)
[2022-07-01 21:15] LABS: POC Glucose,Bedside 296 (70-110)
--- NOTE | 2022-07-01 21:24 | EXP.RR ---
Acute Rapid Response Note Subjective Date Responded: 07/01/22 Time Responded: 19:45 Provider Note: Called into patient room at 1945, informed patient non-responsive, low blood pressure. Patient difficult to around, blood pressure obtained was 73/44. Manual on right arm 82/34. Patient with pulse. Finger stick obtained via glucometer was 349 mg/dl. Increased LR fluids to 999/hr. Recheck blood pressure 99/42. Medications reviewed. Narcan 0.4 given via iv. Patient aroused, responsive. 12 lead obtained showed a first degree AVB. ABG obtained showed no acute findings. Labs drawn and reviewed. 2010: Decreased iv fluids to 250 ml/hr. Patient extremely dry on exam. Repeat vitals blood pressure 127/45, HR 62, oxygen 97/5L. Patient awake, conversing with family Objective Findings: Vital Signs - Last 4 Hours Temperature 99.0 F 07/01/22 20:00 Temperature Source Axillary 07/01/22 20:00 Pulse Rate 57 L 07/01/22 20:00 Respiratory Rate 20 07/01/22 20:00 TAR Vitals Timing 1 Hour Post Infusion 06/30/22 21:15 Blood Pressure 101/43 L 07/01/22 20:00 Blood Pressure Mean 62 07/01/22 20:00 Blood Pressure Source Automatic Cuff 07/01/22 20:00 Blood Pressure Position Supine 07/01/22 16:00 02 Sat by Pulse Oximetry 94 L 07/01/22 20:00 Oxygen Delivery Method 07/01/22 20:00 Oxygen Flow Rate (LPM) 5 07/01/22 20:00 Lab Results for Past 12 Hours 07/01/22 21:08: POC Glucose 296 H 07/01/22 20:20: Lactate 1.8 07/01/22 20:10: Sodium 135 L, Potassium 4.1, Chloride 105, Carbon Dioxide 23, Anion Gap 11.1, BUN 38 H D, Creatinine 2.90 H D, Estimated Creat Clear 30, Estimated GFR 21 L, Est GFR ( Amer) 25 L D, Glucose 297 H D, Calcium 8.3 L, Total Bilirubin 0.5, AST 23 D, ALT 13 D, Alkaline Phosphatase 126, Total Protein 5.7 L, Albumin 3.1 L, Globulin 2.6, Albumin/Globulin Ratio 1.2 07/01/22 20:10: WBC 10.4, RBC 3.90 L, Hgb 8.1 L, Hct 27.2 L, MCV 69.8 L, MCH 20.9 L, MCHC 29.9 L, RDW 23.7 H, Plt Count 321, MPV 8.2, Neut % (Auto) 81.8 H, Lymph % (Auto) 10.5, [place] % (Auto) 5.8, Eos % (Auto) 1.6, Baso % (Auto) 0.4, Neut # (Auto) 8.5 H, Lymph # (Auto) 1.1, [place] # (Auto) 0.6, Eos # (Auto) 0.2, Baso # (Auto) 0.0 07/01/22 19:56: Specimen Source Right radial, O2 % 3lpm, ABG pH 7.36, ABG pCO2 39.5, ABG pO2 83.4, ABG HCO3 22.0, ABG Total CO2 23.2, ABG O2 Saturation 96, ABG Base Excess -3.4 L, Massimo Test Patient unable 07/01/22 17:33: POC Glucose 301 H* 07/01/22 11:40: POC Glucose 322 H* 06/30/22 16:40: SARS-CoV-2 (PCR) Not detected, Influenza A Untype (PCR) Not detected, Influenza Type B (PCR) Not detected My Orders Category Date Time Status XR chest portable Stat Exams 07/01/22 19:56 Completed BNP [Brain Natriuretic Peptide] Stat Lab 07/01/22 20:10 Received CBC w/Auto Diff [Complete Blood Count Auto Diff] Stat Lab 07/01/22 20:10 Completed CMP [Comprehensive Metabolic Panel] Stat Lab 07/01/22 20:10 Completed Lactic Acid Stat Lab 07/01/22 20:20 Completed Trop I [Troponin I] Stat Lab 07/01/22 20:10 Received Naloxone HCl [Narcan 0.4mg/mL vial] Med 07/01/22 20:02 Once 0.5 mg IV ONCE ONE ABG [Arterial Blood Gas] Stat RT 07/01/22 19:56 Completed EKG Request [ECG Request by /Leisa] Stat Y 07/01/22 19:55 Ordered Rapid Response Exam General General appearance: in no apparent distress and lethargic Head Head exam: atraumatic Eye Eye exam: Present normal appearance ENT ENT exam: Present mucous membranes dry Neck Neck exam: Present normal inspection Chest Chest inspection: Present symmetric chest wall rise Cardiovascular Cardiovascular exam: Present regular rate and normal rhythm Abdominal Exam Abdominal exam: Present soft and distention Neurological Exam Neurological exam: Present other Skin Skin exam: Present warm RR Procedures/Assess/Plan (1) Closed compression fracture of thoracic vertebra: Status: Acute (2) Anemia: Status: Acute (3) Chronic hypoxemic respiratory failure: Status: Chronic
[2022-07-01 21:25] LABS: NT Pro Brain Natriuretic Pep. 5290 pg/mL (0-450)
--- NOTE | 2022-07-01 21:34 | PC.NURSE ---
CONSULTED WITH HOSPITALIST SKYE TIERNEY PATIENT'S NIGHT MEDS. INSTRUCTED TO GIVE ALL MEDS ORDERED BUT TO HOLD NARCOTICS AT THIS TIME.
[2022-07-01 21:56] LABS: POC Glucose,Bedside 349 (70-110)
[2022-07-01 22:19] LABS: Troponin I 0.05 ng/ml (0.00-0.034)
[2022-07-02 04:00] VITALS: BP 160/67; PULSE 56; RESP 20; TEMP 36.7; O2SAT 96
[2022-07-02 04:43] VITALS: BMI 36.1
--- NOTE | 2022-07-02 04:57 | PC.NURSE ---
NO FURTHER EPISODES OF HYPOTENTION. 02 AT 3LNC. NO C/O PAIN. SPOUSE AT BEDSIDE. VITAL SIGNS STABLE/AFEBRILE. F/C PATENT AND INTACT TO BSD, URINE CLEAR YELLOW.
[2022-07-02 06:47] LABS: POC Glucose,Bedside 340 (70-110)
[2022-07-02 06:47] LABS: POC Glucose,Bedside 269 (70-110)
[2022-07-02 08:00] VITALS: BP 170/63; PULSE 64; RESP 20; TEMP 36.5; O2SAT 95
[2022-07-02 08:47] LABS: Transferrin 251 mg/dL (177-329)
[2022-07-02 11:59] LABS: POC Glucose,Bedside 316 (70-110)
[2022-07-02 12:00] VITALS: BP 131/65; PULSE 66; RESP 18; TEMP 36.7; O2SAT 93
--- NOTE | 2022-07-02 14:51 | CARE MANAGER ---
Met with patient to discuss discharge planning. Patient Choice signed for [facility]. Order/clinical faxed and patient will likely discharge home tomorrow.
[2022-07-02 16:00] VITALS: BP 142/77; PULSE 63; RESP 18; TEMP 36.6; O2SAT 99
[2022-07-02 17:14] LABS: POC Glucose,Bedside 337 (70-110)
[2022-07-02 18:00] LABS: Chloride 103 mmol/L (98-107); Potassium 4.7 mmoL/L (3.5-5.1); Sodium 136 mmol/L (136-145)
[2022-07-02 18:03] LABS: Anion Gap 12.7 mEq/L (5-15); Blood Urea Nitrogen 44 mg/dl (9-20); Calcium 8.6 mg/dl (8.4-10.2); Carbon Dioxide 25 mmol/L (22.0-30.0); Creatinine Clearance Estimated 31 mL/min (50-200); Estimated Glomerular Filt Rate 22 ml/min (>60); GFR (African American) 27 ML/MIN (>60); Glucose 293 mg/dl (74-100)
--- NOTE | 2022-07-02 18:18 | EXP.ACUTE.PN ---
Subjective *Date: 07/02/22 *Time: 18:19 Interval history: Has done better working with therapy and getting. Got a shower last night. Sitting at bedside to eat. Still concerned about going home as he is not better. Had extensive discussion about discharge goals. Expressed concern to patient about realistic goals and pain control regimen. Had an episode last night of hypotension, has had no further episodes since. Received additional pain medication this morning without incident. Denies nausea, chest pain, shortness of breath beyond baseline. No vomiting. Good appetite. Poor insight to current condition and treatment plan Medical Exam Vital signs and Labs for Last 24 Hours: Vital Signs Temp Pulse Pulse Resp BP BP Pulse Ox 07/02/22 16:00 97.9 F 63 18 142/77 H 99 07/02/22 12:00 98.0 F 66 18 131/65 93 L 07/02/22 08:00 97.7 F 64 20 170/63 H 95 07/02/22 04:00 98.0 F 56 L 20 160/67 H 96 07/01/22 23:30 92 L 07/01/22 23:42 98.5 F 51 L 20 147/63 H 91 L 07/01/22 20:00 57 L 98 07/01/22 20:00 99.0 F 57 L 20 101/43 L 94 L Intake and Output 07/02/22 07/02/22 07/02/22 07:59 15:59 23:59 Intake Total 1678 / 2578 900 / 2578 Output Total 40 / 1190 450 / 1190 700 / 1190 Balance 1638 / 1388 450 / 1388 -700 / 1388 Intake: Intake, Oral Amount 900 / 900 Intake, Total IV Amount 1678 / 1678 Ringers Solution,Lactated 1,000 1678 / 1678 ml @ 100 mls/hr IV .Q10H [facility] Rx#:[id number] Output: Output, Urine Amount 40 / 1190 450 / 1190 700 / 1190 Other: Weight 104.644 kg Patient Weight 07/02/22 23:59 Weight 104.644 kg Laboratory Results - last 24 hr 07/01/22 06:12: Transferrin 251 07/01/22 09:19: POC Glucose 340 H* 07/01/22 19:51: POC Glucose 349 H* 07/01/22 19:56: Specimen Source Right radial, O2 % 3lpm, ABG pH 7.36, ABG pCO2 39.5, ABG pO2 83.4, ABG HCO3 22.0, ABG Total CO2 23.2, ABG O2 Saturation 96, ABG Base Excess -3.4 L, Massimo Test Patient unable 07/01/22 20:10: Troponin I 0.05 H 07/01/22 20:10: WBC 10.4, RBC 3.90 L, Hgb 8.1 L, Hct 27.2 L, MCV 69.8 L, MCH 20.9 L, MCHC 29.9 L, RDW 23.7 H, Plt Count 321, MPV 8.2, Neut % (Auto) 81.8 H, Lymph % (Auto) 10.5, [place] % (Auto) 5.8, Eos % (Auto) 1.6, Baso % (Auto) 0.4, Neut # (Auto) 8.5 H, Lymph # (Auto) 1.1, [place] # (Auto) 0.6, Eos # (Auto) 0.2, Baso # (Auto) 0.0 07/01/22 20:10: Sodium 135 L, Potassium 4.1, Chloride 105, Carbon Dioxide 23, Anion Gap 11.1, BUN 38 H D, Creatinine 2.90 H D, Estimated Creat Clear 30, Estimated GFR 21 L, Est GFR ( Amer) 25 L D, Glucose 297 H D, Calcium 8.3 L, Total Bilirubin 0.5, AST 23 D, ALT 13 D, Alkaline Phosphatase 126, Total Protein 5.7 L, Albumin 3.1 L, Globulin 2.6, Albumin/Globulin Ratio 1.2 07/01/22 20:10: NT-Pro-B Natriuret Pep 5290 H 07/01/22 20:20: Lactate 1.8 07/01/22 21:08: POC Glucose 296 H 07/02/22 06:00: POC Glucose 269 H 07/02/22 11:50: POC Glucose 316 H* 07/02/22 17:06: POC Glucose 337 H* 07/02/22 17:25: Sodium 136, Potassium 4.7, Chloride 103, Carbon Dioxide 25, Anion Gap 12.7, BUN 44 H, Creatinine 2.80 H, Estimated Creat Clear 31, Estimated GFR 22 L, Est GFR ( Amer) 27 L, Glucose 293 H, Calcium 8.6 I & O for Labs for Last 24 Hours: Intake & Output 06/29/22 06/30/22 07/01/22 07/02/22 23:59 23:59 23:59 23:59 Intake Total 500 / 500 760 / 760 2578 / 2578 Output Total 0 / 0 510 / 510 1190 / 1190 Balance 500 / 500 250 / 250 1388 / 1388 Weight 102.569 kg 104.145 kg 104.644 kg Constitutional: Present no acute distress, obese and chronically ill appearing Head: Present atraumatic and normocephalic ENT: Present normal exam Neck: Present normal inspection Respiratory: Present normal respiratory effort; Absent accessory muscle use Cardiac: Present Reg Rate and Rhythm GI: Present normal bowel sounds; Absent tenderness Extremities: Present normal inspection and full ROM Skin: Present intact; Absent erythema Neuro: Present Grossly Intact
[2022-07-02 19:50] VITALS: BP 142/57; PULSE 65; RESP 18; O2SAT 96
[2022-07-02 20:00] VITALS: O2SAT 96
[2022-07-02 20:49] LABS: POC Glucose,Bedside 361 (70-110)
--- NOTE | 2022-07-03 02:44 | PC.NURSE ---
F/C REMOVED AT 2009, PATIENT VOIDING. HAS URGENCY. UNABLE TO CONTROL BLADDER. IS INCONTINENT. HAS NOT REQUIRED PAIN MEDS . 02 AT 3 LNC. AT BEDSIDE.
[2022-07-03 04:00] VITALS: BP 146/44; PULSE 65; RESP 22; TEMP 36.7; O2SAT 98
[2022-07-03 07:28] LABS: Basophils % 0.3 % (0.1-2.0); Eosinophils # 0.3 K/mm3 (0.0-0.4); Eosinophils % 3.8 % (0.1-12.0); Hematocrit 28.9 % (42.0-52.0); Hemoglobin 8.7 g/dL (14.1-18.0); Lymphocytes % 11.8 % (10-50); Mean Corpuscular Hemoglobin 20.4 pg (27.0-31.2); Mean Platelet Volume 8.3 fl (7.4-10.4); Monocytes # 0.9 K/mm3 (0.1-1.0); Monocytes % 10.9 % (1.7-9.3); Neutrophils % 73.3 % (37.0-80.0); Platelet Count 272 K/mm3 (142-424); Red Blood Count 4.24 M/mm3 (4.60-6.20); Red Cell Distribution Width 23.8 % (11.5-17.5); White Blood Count 8.2 K/mm3 (4.8-10.8)
[2022-07-03 07:50] LABS: Chloride 111 mmol/L (98-107); Potassium 4.7 mmoL/L (3.5-5.1); Sodium 139 mmol/L (136-145)
[2022-07-03 07:53] LABS: Anion Gap 13.7 mEq/L (5-15); Blood Urea Nitrogen 39 mg/dl (9-20); Calcium 8.7 mg/dl (8.4-10.2); Carbon Dioxide 19 mmol/L (22.0-30.0); Creatinine Clearance Estimated 38 mL/min (50-200); Estimated Glomerular Filt Rate 27 ml/min (>60); GFR (African American) 33 ML/MIN (>60); Glucose 228 mg/dl (74-100)
[2022-07-03 08:00] VITALS: BP 160/76; PULSE 78; RESP 18; TEMP 36.6; O2SAT 95
--- NOTE | 2022-07-03 08:34 | EXP.DC.SUM ---
General Admission date:: 06/30/22 Discharge date: 07/03/22 HPI HPI HPI: Mr. Pemberton is a 82-year-old male in obvious pain. Brought into the ER by EMS due to complaint of left-sided pain going around to his back that is worsened since last night. Has been having back pain since November when he fell. Imaging at that time did not show significant compression fracture, did have some mild degenerative changes. Pain has gotten worse over the past several days more acutely. Denies any new falls or trauma. Pain is spasming in nature, cramping. Almost taking his breath away when it occurs. Worse when he turns to the side. Denies any distal neurologic deficits. Is able to move his legs. Has sensation in his lower extremities. He had been taking hydrocodone for his back but reportedly it was stopped by his doctors. However ER was informed that his had weaned his dose down. He did take 1 dose last night that did not help very much. He denies any chest pain, shortness of breath beyond baseline, nausea or vomiting or diarrhea. Does report some confusion because of the pain and it makes it difficult for him to think. Reports he has significant history of diabetes, chronic oxygen requirement because of COPD, hypertension, history of stents over 8 years ago for which she is on daily Plavix still. Labs remarkable for anemia and hyperglycemia. He is not sure why he continues to be anemic which seems to be longstanding. [facility], does not want to be transferred however. Did not mention [facility]. Patient not able to give clear history of his medications, aided in history but was also a poor historian. Hospital Course Hospital Course Hospital Course: 82-year-old male with finding of compression fracture in T12.? Admitted for pain, hyperglycemia, symptomatic anemia.? According to family, anemia is recurrent and chronic.? Responded well to transfusion.? Hemoglobin stable.? Pain management consulted, planning on outpatient kyphoplasty. PT evaluated patient, recommend placement but patient wants to go home with . They feel they can care for him at home. Back brace has been ordered, reportedly being delivered to patient's home. Case management assisted in establishing patient with home health. Stable for discharge home. Problems addressed as follows: Back pain T12 compression fracture -Admitted for back pain. Interval progression/development of compression fracture on T12 since imaging performed in November. MRI obtained during admission showing foraminal narrowing and mild canal stenosis. No focal neurologic deficits distal to injury. Admitted for pain control and evaluation for subsequent therapy. Tolerating pain medication. Will discharge home on hydrocodone and muscle relaxers (tizanidine). Pain management consulted, appreciate their assistance. Planning to see patient back for kyphoplasty in the coming weeks. Patient's Plavix held during admission, will continue to hold pending further evaluation to resume after kyphoplasty. Established with home health, they are scheduled to see him starting on Tuesday after discharge. Patient has been able to get up to bedside and eat during admission. Ambulating cautiously to bathroom. Needs assistance with ADLs however states they have a son that lives with him that can help with this. Adamant about going home not to a nursing facility. ERMA on CKD -Chronic kidney disease present on admission. Developed mild ERMA. Improved with IV fluid administration. Creatinine peaked at 2.9, improved to 2.3 on day of discharge. Plan for repeat labs in 4 to 5 days to monitor improvement. Held Entresto and spironolactone during admission however given GFR, okay to resume home dose of spironolactone and Entresto at home dose in light of his heart failure. Anemia, chronic -Iron deficiency based on labs. Concern for slow blood loss secondary to
[2022-07-03 13:09] LABS: POC Glucose,Bedside 265 (70-110)
[2022-07-03 13:09] LABS: POC Glucose,Bedside 215 (70-110)
--- NOTE | 2022-07-05 14:46 | CARE MANAGER ---
Spoke with patient for post-discharge phone interview, patient states that he was doing well but having some pain. He is aware of his follow-up appointments.
== END 2022-07-03 16:19 | disposition home health service (06) | DRG 552 ==
LOC: ER 15:23 → 2ND 15:42
PROVIDERS: Nurse Practitioner Family; Admitting Provider Internal Medicine Adolescent Medicine; Emergency Provider Emergency Medicine; PCP Family Medicine; Visit Provider Internal Medicine Adolescent Medicine
DX: S22.080A Wedge compression fracture of T11-T12 vertebra, initial encounter for closed fracture (principal); J96.11 Chronic respiratory failure with hypoxia; N18.9 Chronic kidney disease, unspecified; Z95.1 Presence of aortocoronary bypass graft; J44.9 Chronic obstructive pulmonary disease, unspecified; Z79.4 Long term (current) 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; E11.22 Type 2 diabetes mellitus with diabetic chronic kidney disease; D50.9 Iron deficiency anemia, unspecified; Z99.81 Dependence on supplemental oxygen
CPT/HCPCS: 36415; 51702; 71045; 71260; 72128; 72131; 72146; 74177; 80048; 80053; 81001; 82607; 82803; 82962; 83036; 83540; 83550; 83605; 83690; 83735; 83880; 84466; 84484; 85007; 85014; 85018; 85025; 86850; 93005; 94640; 94761; 97162; 97166; 97530; 99285; C9803; J2405; P9016; Q9967; U0003; U0005

== ENCOUNTER → 2022-07-12 15:20 | Outpatient (CLI) | payer MEDICARE, SELFPAY ==
[2022-07-12 16:31] LABS: Basophils # 0.1 K/mm3 (0-0.2); Basophils % 0.8 % (0.1-2.0); Eosinophils # 0.2 K/mm3 (0.0-0.4); Hematocrit 30.8 % (42.0-52.0); Hemoglobin 9.3 g/dL (14.1-18.0); Lymphocytes # 0.8 K/mm3 (0.7-4.5); Mean Corpuscular HGB Conc 30.2 g/dL (31.8-35.4); Mean Corpuscular Hemoglobin 21.3 pg (27.0-31.2); Mean Corpuscular Volume 70.5 fl (80-94); Mean Platelet Volume 8.2 fl (7.4-10.4); Monocytes # 0.3 K/mm3 (0.1-1.0); Monocytes % 5.4 % (1.7-9.3); Neutrophils # 4.5 K/mm3 (1.8-7.8); Neutrophils % 76.7 % (37.0-80.0); Platelet Count 314 K/mm3 (142-424); Red Blood Count 4.38 M/mm3 (4.60-6.20); Red Cell Distribution Width 23.4 % (11.5-17.5); White Blood Count 5.9 K/mm3 (4.8-10.8)
[2022-07-12 16:51] LABS: Chloride 99 mmol/L (98-107); Potassium 5.1 mmoL/L (3.5-5.1); Sodium 136 mmol/L (136-145)
[2022-07-12 16:54] LABS: Anion Gap 16.1 mEq/L (5-15); Blood Urea Nitrogen 20 mg/dl (9-20); Carbon Dioxide 26 mmol/L (22.0-30.0); Estimated Glomerular Filt Rate 45 ml/min (>60); GFR (African American) 54 ML/MIN (>60)
[2022-07-12 17:13] LABS: Glucose 420 mg/dl (74-100)
== END ==
PROVIDERS: PCP Internal Medicine Adolescent Medicine; Visit Provider Family Medicine
DX: N17.9 Acute kidney failure, unspecified (principal)
CPT/HCPCS: 36415; 80048; 85025

== ENCOUNTER → 2022-07-13 10:50 | Outpatient (POV) | payer MEDICARE, SELFPAY ==
[2022-07-13 11:29] VITALS: BP 124/46; PULSE 60; RESP 20; BMI 35.5
--- NOTE | 2022-07-13 12:35 | EXP.PAIN.SOA ---
[facility] Pain Management SOAP Note Subjective:: Patient is a pleasant 82-year-old male who presents today for follow-up. We are currently treating the patient for compression fracture of T12, mid back pain. Today he rates his pain a 5 out of 10. Patient denies any new trauma or injury. Patient denies any change location or type of pain he experiences. Patient had a fall that happened around November this year.? Patient had a sleep study done and had finished up and when finishing and getting up from the bed he fell. Patient hit his face and hip and was immediately seen with imaging.? Patient did have a compression fracture at T12 and was being managed with hydrocodone however in June his pain worsened and he was seen at [facility] where he was admitted for pain control. His new imaging did show worsening of his compression fracture with a 70% loss of height. Patient does have a significant health history of COPD, hypertension, cardiac stents, diabetes, and chronic oxygen requirement.? Patient is on Plavix daily.? Patient is prescribed gabapentin 300 mg twice a day from his primary care doctor.? Patient denies any side effects from these medications. He states these medications do help take the edge off of his symptoms. His Bill is [id number]. It has been reviewed and appropriate. Review of Systems: General: No recent weight changes, no fever, no sleep disturbances Respiratory: No cough, no shortness of air, no recurring pulmonary infections Cardiovascular/peripheral vascular: No chest pain, no palpitations, no edema, no shortness of breath Gastrointestinal: No new onset incontinence, normal bowel movements reported Genitourinary: No new onset incontinence Musculoskeletal: Mid back pain Psychiatric: [Normal mood/affect] Neurological: [Denies weakness in extremities], [denies balance issues] Objective:: Physical Exam: General: Alert and oriented x3, no acute distress, pleasant and cooperative Lungs: Respirations even and unlabored, symmetrical chest expansion Eyes: PERRL Musculoskeletal: Flexion and extension of thoracic [spine] somewhat guarded secondary to pain, [antalgic gait noted] Neurological: Speech clear, no gross sensory deficit Assessment:: Compression fracture of T12, mid back pain Plan:: Patient continues to experience significant pain in his mid back related to a compression fracture with 70% height loss. I have discussed with the patient that I do think he would benefit from a kyphoplasty. Risk and benefits were addressed with the patient and his family. Patient would like to proceed forward. I have discussed with the patient that the next available date would be next Tuesday in [place]. Patient is agreeable with this plan of care. 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 Patient will stop taking his Plavix from today on. We will submit to insurance for a kyphoplasty of his T12. Patient has been instructed to contact the clinic with any concerns before the next appointment. Dr. Warren has reviewed this note and agrees with this plan of care. This note was dictated using voice recognition software and make contain errors or omissions. [facility] Disclaimer: The information contained in this section may have been updated after the patient was seen, as this information can be updated by other users. Medical History Abnormal EKG Atypical angina JUAN FRANCISCO (cerebral atherosclerosis) Chronic hypoxemic respiratory failure Claudication COPD (chronic obstructive pulmonary disease) Diabetes mellitus Dyspnea on exertion Edema HHD (hypertensive heart disease) Lung nodule Multiple pulmonary nodules Paroxysmal atrial fibrillation Pre-op evaluation Pulmonary emphysema Sleep apnea Stopped smoking with greater than 30 pack year history Surgical History History of heart artery stent History of prostate surgery Family History ([place]
== END ==
PROVIDERS: PCP Family Medicine; Visit Provider Nurse Practitioner Family
DX: S22.089A Unspecified fracture of T11-T12 vertebra, initial encounter for closed fracture (principal); M54.9 Dorsalgia, unspecified
CPT/HCPCS: 99212; G0463

== ENCOUNTER → 2022-08-03 18:14 | Outpatient (CLI) | payer MEDICARE, SELFPAY ==
[2022-08-03 19:10] LABS: Basophils % 0.7 % (0.1-2.0); Eosinophils # 0.3 K/mm3 (0.0-0.4); Hematocrit 31.3 % (42.0-52.0); Hemoglobin 9.5 g/dL (14.1-18.0); Lymphocytes # 1.1 K/mm3 (0.7-4.5); Lymphocytes % 17.6 % (10-50); Mean Corpuscular HGB Conc 30.4 g/dL (31.8-35.4); Mean Corpuscular Hemoglobin 22.1 pg (27.0-31.2); Mean Corpuscular Volume 72.8 fl (80-94); Mean Platelet Volume 7.9 fl (7.4-10.4); Monocytes # 0.3 K/mm3 (0.1-1.0); Monocytes % 5.4 % (1.7-9.3); Neutrophils # 4.5 K/mm3 (1.8-7.8); Neutrophils % 72.4 % (37.0-80.0); Platelet Count 273 K/mm3 (142-424); Red Blood Count 4.29 M/mm3 (4.60-6.20); Red Cell Distribution Width 24.2 % (11.5-17.5); White Blood Count 6.3 K/mm3 (4.8-10.8)
== END ==
PROVIDERS: PCP Family Medicine; Visit Provider Family Medicine
DX: D64.9 Anemia, unspecified (principal); K57.31 Diverticulosis of large intestine without perforation or abscess with bleeding
CPT/HCPCS: 36415; 85025

== ENCOUNTER → 2022-08-12 11:01 | Outpatient (POV) | payer MEDICARE, SELFPAY ==
[2022-08-12 11:21] VITALS: BP 118/43; PULSE 79; RESP 18; O2SAT 98; BMI 35.0
--- NOTE | 2022-08-12 12:52 | EXP.PAIN.SOA ---
[facility] Pain Management SOAP Note Subjective:: Patient is a pleasant 82-year-old male who presents today for follow-up of status post kyphoplasty of T12 compression fracture. We are currently treating the patient for acute compression fracture of T12, mid back pain. Today the patient states he has had 100% improvement following this procedure and rates his pain a 0 out of 10. Patient states he has been able to move around with decreased pain and increase his activity. Patient does continue to use a walker for ambulation. Patient denies any issues following his surgical procedure. Patient does continue to use his back brace for additional support. Previously the patient did have a fall around November that resulted in a compression fracture and then had worsening pain starting in June. Patient's compression fracture did have a 70% height loss and was determined to be a chronic injury with acute findings. Patient does have a significant health history of COPD, hypertension, cardiac stents, diabetes and chronic oxygen requirement. Patient is on Plavix daily. He is managed with gabapentin 300 mg twice a day from his primary care doctor. He denies any side effects from this medication. He states this does do well for him. His Bill is [id number]. Its been reviewed and appropriate. Review of Systems: General: No recent weight changes, no fever, no sleep disturbances Respiratory: No cough, no shortness of air, no recurring pulmonary infections Cardiovascular/peripheral vascular: No chest pain, no palpitations, no edema, no shortness of breath Gastrointestinal: No new onset incontinence, normal bowel movements reported Genitourinary: No new onset incontinence Musculoskeletal: Mid back pain Psychiatric: [Normal mood/affect] Neurological: [Denies weakness in extremities], [denies balance issues] Objective:: Physical Exam: General: Alert and oriented x3, no acute distress, pleasant and cooperative Lungs: Respirations even and unlabored, symmetrical chest expansion Eyes: PERRL Musculoskeletal: Flexion and extension of thoracic [spine] somewhat guarded secondary to pain, [antalgic gait noted] Neurological: Speech clear, no gross sensory deficit Skin: Incision site completely healed with no erythema noted ORT score updated with minimal risk of 0 Assessment:: Compression fracture of T12, mid back pain, status post kyphoplasty of T12 Plan:: Patient has had significant improvement of his pain symptoms following his kyphoplasty and does not require any additional interventions at this time. Patient's incision site is fully healed. Patient will return to clinic in 1 month for reevaluation of symptoms and follow-up. Patient has been instructed to contact the clinic with any concerns before the next appointment. Dr. Warren has reviewed this note and agrees with this plan of care. This note was dictated using voice recognition software and make contain errors or omissions. [facility] Disclaimer: The information contained in this section may have been updated after the patient was seen, as this information can be updated by other users. Medical History Abnormal EKG Atypical angina JUAN FRANCISCO (cerebral atherosclerosis) Chronic hypoxemic respiratory failure Claudication COPD (chronic obstructive pulmonary disease) Diabetes mellitus Dyspnea on exertion Edema HHD (hypertensive heart disease) Lung nodule Multiple pulmonary nodules Paroxysmal atrial fibrillation Pre-op evaluation Pulmonary emphysema Sleep apnea Stopped smoking with greater than 30 pack year history Surgical History History of heart artery stent History of prostate surgery Family History Other Anemia Coronary artery disease Diabetes Heart attack Hyperlipidemia Hypertension Stroke Social History Smoking Status: Never smoker
== END ==
PROVIDERS: PCP Family Medicine; Visit Provider Nurse Practitioner Family
DX: S22.089A Unspecified fracture of T11-T12 vertebra, initial encounter for closed fracture
CPT/HCPCS: 99212; G0463

== ENCOUNTER → 2022-09-13 13:55 | Outpatient (POV) | payer MEDICARE, SELFPAY ==
--- NOTE | 2022-09-13 14:16 | EXP.PAIN.SOA ---
[facility] Pain Management SOAP Note Subjective:: Patient is a pleasant 82-year-old male who presents today for follow-up. We are currently treating the patient for acute compression fracture of T12, mid back pain, status post kyphoplasty. Today the patient rates his pain a 0 out of 10. Patient denies any new trauma or injury. Patient denies any change to location or type of pain he experiences. Patient states that he has been able to increase his activity and is still seeing physical therapy currently. Patient states that he does use oxygen during the visits to improve his exercise tolerance. Patient states he rarely needs oxygen during the day and just uses it primarily when he sleeps. Patient states he has had significant improvement following his kyphoplasty. Patient does have a significant history of COPD, hypertension, cardiac stents, diabetes and chronic oxygen requirement. Patient is on Plavix daily. Patient is managed with gabapentin 300 mg twice a day from his primary care doctor. Patient denies any side effects from this medication. His Bill is [id number]. Its been reviewed and appropriate. Review of Systems: General: No recent weight changes, no fever, no sleep disturbances Respiratory: No cough, no shortness of air, no recurring pulmonary infections Cardiovascular/peripheral vascular: No chest pain, no palpitations, no edema, no shortness of breath Gastrointestinal: No new onset incontinence, normal bowel movements reported Genitourinary: No new onset incontinence Musculoskeletal: Mid back pain Psychiatric: [Normal mood/affect] Neurological: [Denies weakness in extremities], [denies balance issues] Objective:: Physical Exam: General: Alert and oriented x3, no acute distress, pleasant and cooperative Lungs: Respirations even and unlabored, symmetrical chest expansion Eyes: PERRL Musculoskeletal: Flexion and extension of thoracic [spine] somewhat guarded secondary to pain, [antalgic gait noted] Neurological: Speech clear, no gross sensory deficit Assessment:: Acute compression fracture of T12, mid back pain, status post kyphoplasty of T12 Plan:: Patient has had significant improvement following his kyphoplasty procedure and does not require any additional therapies from our office. Patient will contact our clinic for any additional follow-ups he may need. Patient has been instructed to contact the clinic with any concerns before the next appointment. Dr. Warren has reviewed this note and agrees with this plan of care. This note was dictated using voice recognition software and make contain errors or omissions. [facility] Disclaimer: The information contained in this section may have been updated after the patient was seen, as this information can be updated by other users. Medical History Abnormal EKG Atypical angina JUAN FRANCISCO (cerebral atherosclerosis) Chronic hypoxemic respiratory failure Claudication COPD (chronic obstructive pulmonary disease) Diabetes mellitus Dyspnea on exertion Edema HHD (hypertensive heart disease) Lung nodule Multiple pulmonary nodules Paroxysmal atrial fibrillation Pre-op evaluation Pulmonary emphysema Sleep apnea Stopped smoking with greater than 30 pack year history Surgical History History of heart artery stent History of prostate surgery Family History Other Anemia Coronary artery disease Diabetes Heart attack Hyperlipidemia Hypertension Stroke Social History Smoking Status: Never smoker second hand exposure: No alcohol intake: never substance use type: denies use current occupational status: retired Travel in the last 8 weeks: None household members: spouse housing: house current occupational exposures/hazards: No caffeine: Yes
[2022-09-13 14:35] VITALS: BP 142/52; PULSE 73; RESP 18; O2SAT 98; BMI 34.2
== END ==
PROVIDERS: PCP Family Medicine; Visit Provider Nurse Practitioner Family
DX: S22.089D Unspecified fracture of T11-T12 vertebra, subsequent encounter for fracture with routine healing (principal); M54.9 Dorsalgia, unspecified
CPT/HCPCS: 99212; G0463

== ENCOUNTER → 2022-10-19 15:40 | Outpatient (CLI) | payer MEDICARE, SELFPAY ==
[2022-10-19 17:42] LABS: Hemoglobin A1C 11.8 % (4.0-6.0)
[2022-10-19 18:28] LABS: Alanine Aminotransferase 17 U/L (12-78); Albumin Level 3.9 g/dl (3.5-5.0); Albumin/Globulin Ratio 1.6 (1.1-1.8); Alkaline Phosphatase 98 U/L (38-126); Anion Gap 15.3 mEq/L (5-15); Aspartate Amino Transferase 24 U/L (17-59); Bilirubin,Total 0.6 mg/dl (0.2-1.3); Blood Urea Nitrogen 22 mg/dl (9-20); Calcium 8.1 mg/dl (8.4-10.2); Carbon Dioxide 27 mmol/L (22.0-30.0); Chloride 99 mmol/L (98-107); Estimated Glomerular Filt Rate 49 ml/min (>60); GFR (African American) 59 ML/MIN (>60); Globulin 2.4 g/dL (1.3-3.2); Glucose 168 mg/dl (74-100); Potassium 4.3 mmoL/L (3.5-5.1); Sodium 137 mmol/L (136-145); Total Protein,Serum 6.3 g/dl (6.3-8.2)
[2022-10-19 18:58] LABS: Thyroid Stimulating Hormone 2.51 uIU/mL (0.465-4.68)
[2022-10-19 19:06] LABS: Basophils % 0.4 % (0.1-2.0); Eosinophils # 0.1 K/mm3 (0.0-0.4); Eosinophils % 1.6 % (0.1-12.0); Hematocrit 24.9 % (42.0-52.0); Hemoglobin 7.6 g/dL (14.1-18.0); Lymphocytes # 1.2 K/mm3 (0.7-4.5); Lymphocytes % 14.9 % (10-50); Mean Corpuscular HGB Conc 30.5 g/dL (31.8-35.4); Mean Corpuscular Hemoglobin 19.3 pg (27.0-31.2); Mean Corpuscular Volume 63.4 fl (80-94); Mean Platelet Volume 7.8 fl (7.4-10.4); Monocytes # 0.5 K/mm3 (0.1-1.0); Monocytes % 5.8 % (1.7-9.3); Neutrophils # 6.2 K/mm3 (1.8-7.8); Neutrophils % 77.3 % (37.0-80.0); Platelet Count 316 K/mm3 (142-424); Red Blood Count 3.92 M/mm3 (4.60-6.20); Red Cell Distribution Width 18.2 % (11.5-17.5)
== END ==
PROVIDERS: PCP Family Medicine; Visit Provider Family Medicine
DX: E10.69 Type 1 diabetes mellitus with other specified complication (principal); N18.9 Chronic kidney disease, unspecified; K57.31 Diverticulosis of large intestine without perforation or abscess with bleeding; R60.9 Edema, unspecified; Z79.4 Long term (current) 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
CPT/HCPCS: 36415; 80053; 83036; 84443; 85025

== ENCOUNTER → 2022-10-21 15:28 | Outpatient (CLI) | payer MEDICARE, SELFPAY ==
[2022-10-21 16:36] LABS: Anion Gap 14.6 mEq/L (5-15); Blood Urea Nitrogen 24 mg/dl (9-20); Calcium 8.7 mg/dl (8.4-10.2); Carbon Dioxide 27 mmol/L (22.0-30.0); Chloride 99 mmol/L (98-107); Estimated Glomerular Filt Rate 42 ml/min (>60); GFR (African American) 51 ML/MIN (>60); Glucose 156 mg/dl (74-100); Potassium 4.6 mmoL/L (3.5-5.1); Sodium 136 mmol/L (136-145)
== END ==
PROVIDERS: PCP Family Medicine; Visit Provider Family Medicine
DX: N18.9 Chronic kidney disease, unspecified (principal); E10.69 Type 1 diabetes mellitus with other specified complication
CPT/HCPCS: 80048; 86850

== ENCOUNTER 2022-10-22 09:00 | Outpatient (CLI) | payer MEDICARE, SELFPAY ==
[2022-10-22] VITALS (22 sets, daily range): BP systolic 121–165; BP diastolic 54–89; PULSE 65–73; RESP 18; TEMP 36.6–36.8; O2SAT 94–96; BMI 34.2
[2022-10-22 15:31] LABS: Hematocrit 28.9 % (42.0-52.0)
== END 2022-10-22 15:30 | disposition home or self-care (01) ==
PROVIDERS: PCP Family Medicine; Visit Provider Family Medicine
DX: D64.9 Anemia, unspecified (principal)
CPT/HCPCS: 36430; 85014; 85018; P9016

== ENCOUNTER 2022-10-22 15:00 | Outpatient (RCR) | payer MEDICARE, SELFPAY ==
--- NOTE | 2022-09-22 17:42 | HMH.RHREAS ---
Rehab Reassessment Rehab OP Re-assessment Start: 09/22/22 17:38 Freq: Status: Active Protocol: Document 09/22/22 17:38 NATE (Rec: 09/22/22 17:42 PHORBEN [id number]) E-signed By Michael Steen, PT Rehab Re-assessment Subjective Subjective Pt reports he has less back pain overall since beginning therapy. I can get up out of the bed a whole lot better. Objective Objective Notes Lumbar spine AROM (in deg): FLEX= 0-56, EXT= 0-12, L SB= 0 -15, R SB= 0-12. MMT: B LE GROSSLY 5/5 EXCEPT HIP FLEXORS 4+/5. PAIN: 3/10 IN LOW BACK. Assessment Progress Assessment Progressing as Expected Assessment Notes Pt has shown significant improvement in lumbar spine AROM vs initial eval. He also reports reduction in pain overall. He continues to need further strength in B LE and is limited bySOA due to CHF with csome activity. Patient goals met ST,2 Goals Not Met LT,2,3,4,5,6,7 Revised Goals none Plan Plan Continue per initial POC. Frequency of Therapy 2 x/wk Duration of therapy 4 wks Time and Billing Re-Eval Time 19 Re-Eval Billing Units 1 PHYSICIAN CERTIFICATION: I certify the specified therapy services for [facility] are required, authorized, and reviewed every 30 days.
== END 2022-10-22 15:05 | disposition home or self-care (01) ==
LOC: PT 15:00
PROVIDERS: PCP Family Medicine; Visit Provider Family Medicine
DX: M54.50 Low back pain, unspecified (principal); M54.16 Radiculopathy, lumbar region
CPT/HCPCS: 97110; 97163; 97164; 97530

== ENCOUNTER → 2022-11-05 10:48 | Outpatient (CLI) | payer MEDICARE, SELFPAY ==
[2022-11-05 18:46] LABS: Basophils % 0.5 % (0.1-2.0); Eosinophils # 0.1 K/mm3 (0.0-0.4); Eosinophils % 1.8 % (0.1-12.0); Hematocrit 31.7 % (42.0-52.0); Hemoglobin 9.7 g/dL (14.1-18.0); Lymphocytes # 0.9 K/mm3 (0.7-4.5); Lymphocytes % 12.4 % (10-50); Mean Corpuscular HGB Conc 30.4 g/dL (31.8-35.4); Mean Corpuscular Hemoglobin 21.1 pg (27.0-31.2); Mean Corpuscular Volume 69.3 fl (80-94); Mean Platelet Volume 7.9 fl (7.4-10.4); Monocytes # 0.4 K/mm3 (0.1-1.0); Neutrophils % 80.2 % (37.0-80.0); Platelet Count 349 K/mm3 (142-424); Red Blood Count 4.58 M/mm3 (4.60-6.20); White Blood Count 7.5 K/mm3 (4.8-10.8)
== END ==
PROVIDERS: PCP Family Medicine; Visit Provider Family Medicine
DX: K57.31 Diverticulosis of large intestine without perforation or abscess with bleeding (principal)
CPT/HCPCS: 85025

== ENCOUNTER → 2022-12-02 15:45 | Outpatient (CLI) | payer MEDICARE, SELFPAY ==
[2022-12-02 16:23] LABS: Basophils % 0.3 % (0.1-2.0); Eosinophils # 0.2 K/mm3 (0.0-0.4); Eosinophils % 2.9 % (0.1-12.0); Hematocrit 29.9 % (42.0-52.0); Hemoglobin 8.6 g/dL (14.1-18.0); Lymphocytes # 1.3 K/mm3 (0.7-4.5); Lymphocytes % 18.1 % (10-50); Mean Corpuscular HGB Conc 28.7 g/dL (31.8-35.4); Mean Corpuscular Hemoglobin 20.5 pg (27.0-31.2); Mean Corpuscular Volume 71.4 fl (80-94); Monocytes # 0.4 K/mm3 (0.1-1.0); Monocytes % 5.2 % (1.7-9.3); Neutrophils # 5.4 K/mm3 (1.8-7.8); Neutrophils % 73.5 % (37.0-80.0); Platelet Count 257 K/mm3 (142-424); Red Blood Count 4.18 M/mm3 (4.60-6.20); White Blood Count 7.4 K/mm3 (4.8-10.8)
== END ==
PROVIDERS: PCP Family Medicine; Visit Provider Family Medicine
DX: D64.9 Anemia, unspecified (principal)
CPT/HCPCS: 36415; 85025

== ENCOUNTER → 2022-12-03 15:40 | Outpatient (CLI) | payer MEDICARE, SELFPAY | PROVIDERS: PCP Family Medicine; Visit Provider Family Medicine | DX: D64.9 Anemia, unspecified (principal) | CPT/HCPCS: 36415; 86850 ==

== ENCOUNTER → 2022-12-04 08:43 | Outpatient (CLI) | payer MEDICARE, SELFPAY ==
[2022-12-04] VITALS (23 sets, daily range): BP systolic 112–161; BP diastolic 57–87; PULSE 63–79; RESP 18–20; TEMP 36.4–36.7; O2SAT 94–98; BMI 33.5
[2022-12-04 19:42] LABS: Hematocrit 37.7 % (42.0-52.0); Hemoglobin 11.7 g/dL (14.1-18.0)
== END ==
PROVIDERS: PCP Family Medicine; Visit Provider Family Medicine
DX: D64.9 Anemia, unspecified (principal)
CPT/HCPCS: 36430; 85014; 85018; P9016

== ENCOUNTER → 2022-12-28 13:30 | Outpatient (CLI) | payer MEDICARE, SELFPAY ==
[2022-12-28 19:02] LABS: Basophils % 0.4 % (0.1-2.0); Eosinophils # 0.2 K/mm3 (0.0-0.4); Eosinophils % 4.1 % (0.1-12.0); Hematocrit 33.9 % (42.0-52.0); Hemoglobin 10.2 g/dL (14.1-18.0); Lymphocytes % 18.6 % (10-50); Mean Corpuscular HGB Conc 30.2 g/dL (31.8-35.4); Mean Corpuscular Hemoglobin 22.6 pg (27.0-31.2); Mean Corpuscular Volume 74.8 fl (80-94); Mean Platelet Volume 7.7 fl (7.4-10.4); Monocytes # 0.4 K/mm3 (0.1-1.0); Monocytes % 6.5 % (1.7-9.3); Neutrophils % 70.3 % (37.0-80.0); Platelet Count 292 K/mm3 (142-424); Red Blood Count 4.53 M/mm3 (4.60-6.20); Red Cell Distribution Width 23.3 % (11.5-17.5); White Blood Count 5.6 K/mm3 (4.8-10.8)
== END ==
PROVIDERS: PCP Family Medicine; Visit Provider Family Medicine
DX: K57.31 Diverticulosis of large intestine without perforation or abscess with bleeding (principal)
CPT/HCPCS: 85025

== ENCOUNTER → 2023-01-25 16:15 | Outpatient (CLI) | payer MEDICARE, SELFPAY ==
[2023-01-25 18:39] LABS: Basophils % 0.3 % (0.1-2.0); Eosinophils # 0.2 K/mm3 (0.0-0.4); Eosinophils % 2.6 % (0.1-12.0); Hematocrit 35.5 % (42.0-52.0); Hemoglobin 10.5 g/dL (14.1-18.0); Lymphocytes # 1.3 K/mm3 (0.7-4.5); Lymphocytes % 15.2 % (10-50); Mean Corpuscular HGB Conc 29.5 g/dL (31.8-35.4); Mean Corpuscular Hemoglobin 23.6 pg (27.0-31.2); Mean Platelet Volume 8.2 fl (7.4-10.4); Monocytes # 0.5 K/mm3 (0.1-1.0); Monocytes % 5.4 % (1.7-9.3); Neutrophils # 6.5 K/mm3 (1.8-7.8); Neutrophils % 76.6 % (37.0-80.0); Platelet Count 277 K/mm3 (142-424); Red Blood Count 4.44 M/mm3 (4.60-6.20); Red Cell Distribution Width 21.6 % (11.5-17.5); White Blood Count 8.5 K/mm3 (4.8-10.8)
[2023-01-25 20:19] LABS: Hemoglobin A1C 8.7 % (4.0-6.0)
[2023-01-25 20:47] LABS: Prostate Specific Ag Screen < 0.1 ng/ml (0.0-4.0)
== END ==
PROVIDERS: PCP Family Medicine; Visit Provider Family Medicine
DX: Z12.5 Encounter for screening for malignant neoplasm of prostate (principal); K57.31 Diverticulosis of large intestine without perforation or abscess with bleeding; E10.69 Type 1 diabetes mellitus with other specified complication; Z79.4 Long term (current) 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
CPT/HCPCS: 83036; 85025; G0103

== ENCOUNTER 2023-02-03 01:29 | Emergency (ER) | payer MEDICARE, SELFPAY ==
[2023-02-03 01:31] VITALS: BP 167/65; PULSE 86; RESP 18; TEMP 36.8; O2SAT 92; BMI 35.5
[2023-02-03 01:41] VITALS: BMI 35.5
--- NOTE | 2023-02-03 01:51 | HMH.EDSKAF ---
Discharge Plan Disposition Patient Disposition: Home, Self-Care Chief Complaint: Skin/Abscess/Foreign Body Prescriptions Prescriptions: No Action oxybutynin chloride 10 mg tablet extended release 24hr 10 mg PO DAILY insulin regular hum U-500 conc 500 unit/mL (3 mL) insulin pen 120 unit SQ BIDWMEAL 30 Days Qty: 14.4 10RF insulin aspart U-100 [Novolog FlexPen U-100 Insulin] 100 unit/mL (3 mL) insulin pen 20 unit SQ TID Qty: 15 10RF Rx Instructions: take 20 units if bloodsugar is over 400 10 units if bloodsugar is over 300 albuterol sulfate 90 mcg/actuation HFA aerosol inhaler 2 inh inhalation Q6H PRN (Reason: shortness of breath or wheezing) 90 Days Qty: 8.5 3RF clopidogrel [Plavix] 75 mg tablet 75 mg PO DAILY Qty: 90 3RF gabapentin 300 mg capsule 300 mg PO BID Qty: 60 5RF spironolactone 25 mg tablet See Rx Instructions .ROUTE .COMPLEX Qty: 90 0RF Dose Instruction: TAKE 1 TABLET EVERY DAY Rx Instructions: TAKE 1 TABLET EVERY DAY torsemide 10 mg tablet See Rx Instructions .ROUTE .COMPLEX Qty: 180 1RF Dose Instruction: TAKE 3 TABLETS BY MOUTH 2 TIMES A DAY FOR DIURETIC Rx Instructions: TAKE 3 TABLETS BY MOUTH 2 TIMES A DAY FOR DIURETIC ferrous gluconate 324 mg (37.5 mg iron) tablet 324 mg PO DAILY Qty: 90 0RF pantoprazole 40 mg tablet,delayed release (DR/EC) 40 mg PO DAILY Qty: 90 0RF Rx Instructions: TAKE 1 TABLET EVERY DAY rosuvastatin 40 mg tablet 40 mg PO HS Qty: 90 3RF Stiolto Respimat 2.5-2.5 mcg/actuation mist 2 puff inhalation DAILY Qty: 4 0RF gemfibrozil 600 mg tablet See Rx Instructions .ROUTE .COMPLEX Qty: 180 0RF Dose Instruction: TAKE 1 TABLET TWICE DAILY FOR CHOLESTEROL Rx Instructions: TAKE 1 TABLET TWICE DAILY FOR CHOLESTEROL polyethylene glycol 3350 238 GM powder 17 g PO BIDP PRN (Reason: Constipation) Referrals Follow up/Referrals: Andres Valencia MD [Primary Care Provider] - See instructions Clinical Impressions Clinical Impression: Abrasion forearm Instructions Patient Instructions: DI for Abrasion Discharge ED Provider: [facility] (ED)[facility]can Skin/Abscess/FB HPI General Chief complaint: Skin/Abscess/Foreign Body Stated complaint: AO 02/02/23 23:30 Laceration left arm Time Seen by Provider: 02/03/23 01:51 Mode of Arrival: Wheelchair Source of Information: Patient, Spouse and Medical Record Limitations: No Limitations Description of Symptoms (Recalled from ER Triage Doc. by RN): Patient was sitting in chair this evening when he stoop up, lost his balance falling into rusted metal table causing L posterior arm skin tear. Patient did not hit head, denies LOC. No pain reported at this time. Unknown last Tdap. History of Present Illness HPI narrative: acute abrasion lt forearm complaint: laceration Onset (ago): hour(s) Tetanus up to date: no Location: LUE Severity: mild Associated symptoms: denies other symptoms Treatments prior to arrival: none Related Data Home Medications Medication Instructions Recorded Confirmed polyethylene glycol 3350 17 17 g PO BIDP PRN Constipation 01/04/22 01/25/23 gram/dose oral powder oxybutynin chloride 10 mg 10 mg PO DAILY 11/05/22 01/25/23 tablet,extended release 24 hr Previous Rx's Medication Instructions Recorded albuterol sulfate 90 mcg/actuation 2 inh inhalation Q6H PRN shortness 03/31/22 aerosol inhaler of breath or wheezing 90 days #8.5 grams clopidogrel 75 mg tablet (Plavix) 75 mg PO DAILY #90 tabs 10/28/22 gabapentin 300 mg capsule 300 mg PO BID Pain #60 caps 10/28/22 insulin aspart U-100 100 unit/mL 20 unit (0.2 mL) SQ TID #15 mL 11/05/22 (3 mL) subcutaneous pen (Novolog FlexPen U-100 Insulin aspart) insulin regular hum U-500 conc 500 120 unit (0.24 mL) SQ BIDWMEAL 11/05/22 unit/mL(3 mL) subcut pen Diabetes 30 days #14.4 mL spironolactone 25 mg tablet See Rx Instructions .Route 11/15/22 .
[2023-02-03 01:56] VITALS: BP 142/65; PULSE 73; RESP 20; TEMP 36.8; O2SAT 90
== END 2023-02-03 02:03 | disposition home or self-care (01) ==
PROVIDERS: Emergency Provider Emergency Medicine; PCP Family Medicine
DX: S51.812A Laceration without foreign body of left forearm, initial encounter (principal); I67.2 Cerebral atherosclerosis; I20.9 Angina pectoris, unspecified; J44.9 Chronic obstructive pulmonary disease, unspecified; E11.9 Type 2 diabetes mellitus without complications; I11.9 Hypertensive heart disease without heart failure; I48.0 Paroxysmal atrial fibrillation; Z87.891 Personal history of nicotine dependence; W01.190A Fall on same level from slipping, tripping and stumbling with subsequent striking against furniture, initial encounter; Z23 Encounter for immunization
CPT/HCPCS: 90714; 96372; 99283; 99284

== ENCOUNTER → 2023-03-02 15:56 | Outpatient (CLI) | payer MEDICARE, SELFPAY ==
[2023-03-02 16:19] LABS: Basophils % 0.2 % (0.1-2.0); Eosinophils # 0.1 K/mm3 (0.0-0.4); Eosinophils % 2.3 % (0.1-12.0); Hematocrit 34.7 % (42.0-52.0); Hemoglobin 10.7 g/dL (14.1-18.0); Lymphocytes % 16.2 % (10-50); Mean Corpuscular HGB Conc 30.8 g/dL (31.8-35.4); Mean Corpuscular Hemoglobin 23.7 pg (27.0-31.2); Mean Corpuscular Volume 77.1 fl (80-94); Mean Platelet Volume 7.9 fl (7.4-10.4); Monocytes # 0.3 K/mm3 (0.1-1.0); Monocytes % 5.1 % (1.7-9.3); Neutrophils # 4.7 K/mm3 (1.8-7.8); Neutrophils % 76.2 % (37.0-80.0); Platelet Count 288 K/mm3 (142-424); Red Blood Count 4.49 M/mm3 (4.60-6.20); Red Cell Distribution Width 19.1 % (11.5-17.5); White Blood Count 6.2 K/mm3 (4.8-10.8)
== END ==
PROVIDERS: PCP Family Medicine; Visit Provider Family Medicine
DX: K57.31 Diverticulosis of large intestine without perforation or abscess with bleeding (principal)
CPT/HCPCS: 36415; 85025

== ENCOUNTER → 2023-04-21 23:37 | Outpatient (CLI) | payer MEDICARE, SELFPAY ==
[2023-04-21 20:08] LABS: Basophils % 0.3 % (0.1-2.0); Eosinophils # 0.2 K/mm3 (0.0-0.4); Eosinophils % 2.3 % (0.1-12.0); Hematocrit 39.1 % (42.0-52.0); Hemoglobin 11.5 g/dL (14.1-18.0); Lymphocytes # 1.5 K/mm3 (0.7-4.5); Lymphocytes % 18.6 % (10-50); Mean Corpuscular HGB Conc 29.5 g/dL (31.8-35.4); Mean Corpuscular Hemoglobin 23.6 pg (27.0-31.2); Mean Corpuscular Volume 80.1 fl (80-94); Mean Platelet Volume 8.4 fl (7.4-10.4); Monocytes # 0.5 K/mm3 (0.1-1.0); Monocytes % 5.6 % (1.7-9.3); Neutrophils # 5.9 K/mm3 (1.8-7.8); Neutrophils % 73.1 % (37.0-80.0); Platelet Count 294 K/mm3 (142-424); Red Blood Count 4.88 M/mm3 (4.60-6.20); Red Cell Distribution Width 16.7 % (11.5-17.5); White Blood Count 8.1 K/mm3 (4.8-10.8)
== END ==
PROVIDERS: PCP Family Medicine; Visit Provider Family Medicine
DX: E10.69 Type 1 diabetes mellitus with other specified complication (principal); J44.9 Chronic obstructive pulmonary disease, unspecified; Z87.891 Personal history of nicotine dependence; Z79.4 Long term (current) 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
CPT/HCPCS: 85025

== ENCOUNTER → 2023-06-20 08:19 | Outpatient (CLI) | payer MEDICARE, SELFPAY ==
[2023-06-20 19:46] LABS: Basophils % 0.4 % (0.1-2.0); Eosinophils # 0.1 K/mm3 (0.0-0.4); Eosinophils % 1.8 % (0.1-12.0); Hematocrit 38.6 % (42.0-52.0); Hemoglobin 12.5 g/dL (14.1-18.0); Lymphocytes # 1.2 K/mm3 (0.7-4.5); Mean Corpuscular HGB Conc 32.4 g/dL (31.8-35.4); Mean Corpuscular Hemoglobin 25.7 pg (27.0-31.2); Mean Corpuscular Volume 79.3 fl (80-94); Mean Platelet Volume 8.6 fl (7.4-10.4); Monocytes # 0.4 K/mm3 (0.1-1.0); Monocytes % 5.5 % (1.7-9.3); Neutrophils # 5.9 K/mm3 (1.8-7.8); Neutrophils % 76.4 % (37.0-80.0); Platelet Count 231 K/mm3 (142-424); Red Blood Count 4.87 M/mm3 (4.60-6.20); Red Cell Distribution Width 18.3 % (11.5-17.5); White Blood Count 7.7 K/mm3 (4.8-10.8)
[2023-06-20 20:54] LABS: Hemoglobin A1C 9.5 % (4.0-6.0)
== END ==
PROVIDERS: PCP Family Medicine; Visit Provider Family Medicine
DX: E10.69 Type 1 diabetes mellitus with other specified complication; K57.31 Diverticulosis of large intestine without perforation or abscess with bleeding; Z79.4 Long term (current) 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
CPT/HCPCS: 83036; 85025

== ENCOUNTER 2023-08-02 20:30 | Emergency (ER) | payer MEDICARE, SELFPAY ==
[2023-08-02] VITALS (9 sets, daily range): BP systolic 140–163; BP diastolic 47–101; PULSE 63–76; RESP 15–16; TEMP 36.9; O2SAT 96–100; BMI 35.2
--- NOTE | 2023-08-02 20:50 | XR_ITS ---
PROCEDURE INFORMATION: Exam: XR Chest Exam date and time: 08/02/2023 8:54 PM Age: 83 years old Clinical indication: Cough TECHNIQUE: Imaging protocol: Radiologic exam of the chest. Views: 1 view. COMPARISON: CR XR CHEST PORTABLE 07/01/2022 8:00 PM FINDINGS: Lungs: Unremarkable. No consolidation. Pleural spaces: Unremarkable. No pleural effusion. No pneumothorax. Heart/Mediastinum: Unremarkable. No cardiomegaly. Bones/joints: Moderate degenerative changes of the spine. No acute fracture. Old post sternotomy changes noted. IMPRESSION: No acute disease
[2023-08-02 21:00] LABS: Coronavirus 19, PCR Not Detected (NotDetected); Influenza A, PCR Not Detected (NotDetected); Influenza B, PCR Not Detected (NotDetected)
[2023-08-02 21:30] LABS: Basophils % 0.6 % (0.1-2.0); Eosinophils # 0.2 K/mm3 (0.0-0.4); Eosinophils % 3.6 % (0.1-12.0); Hematocrit 36.6 % (42.0-52.0); Hemoglobin 11.6 g/dL (14.1-18.0); Lymphocytes % 22.4 % (10-50); Mean Corpuscular HGB Conc 31.7 g/dL (31.8-35.4); Mean Corpuscular Hemoglobin 25.8 pg (27.0-31.2); Mean Corpuscular Volume 81.5 fl (80-94); Mean Platelet Volume 8.2 fl (7.4-10.4); Monocytes # 0.3 K/mm3 (0.1-1.0); Monocytes % 7.7 % (1.7-9.3); Neutrophils # 2.9 K/mm3 (1.8-7.8); Neutrophils % 65.7 % (37.0-80.0); Platelet Count 217 K/mm3 (142-424); Red Blood Count 4.49 M/mm3 (4.60-6.20); Red Cell Distribution Width 18.1 % (11.5-17.5); White Blood Count 4.4 K/mm3 (4.8-10.8)
[2023-08-02 21:31] LABS: Chloride 105 mmol/L (98-107); Potassium 3.7 mmoL/L (3.5-5.1); Sodium 141 mmol/L (136-145)
[2023-08-02 21:34] LABS: Alanine Aminotransferase 28 U/L (12-78); Albumin Level 3.7 g/dl (3.5-5.0); Albumin/Globulin Ratio 1.4 (1.1-1.8); Alkaline Phosphatase 106 U/L (38-126); Anion Gap 11.7 mEq/L (5-15); Aspartate Amino Transferase 41 U/L (17-59); Bilirubin,Total 0.4 mg/dl (0.2-1.3); Blood Urea Nitrogen 24 mg/dl (9-20); Carbon Dioxide 28 mmol/L (22.0-30.0); Creatinine Clearance Estimated 49 mL/min (50-200); Estimated Glomerular Filt Rate 39 ml/min (>60); GFR (African American) 47 ML/MIN (>60); Globulin 2.7 g/dL (1.3-3.2); Total Protein,Serum 6.4 g/dl (6.3-8.2)
[2023-08-02 21:35] LABS: Calcium 7.9 mg/dl (8.4-10.2); Glucose 112 mg/dl (74-100)
--- NOTE | 2023-08-02 21:42 | ED_ITS ---
Discharge Plan Disposition Patient Disposition: Home, Self-Care Prescriptions Prescriptions: New azithromycin 250 mg tablet 250 mg PO DAILY 4 Days Qty: 4 0RF Rx Instructions: start on day 2 of therapy (day after ED visit) albuterol sulfate 90 mcg/actuation HFA aerosol inhaler 4 inh inhalation Q4H PRN (Reason: shortness of breath or wheezing) Qty: 8.5 0RF Rx Instructions: 4 puffs every 4 hours for 48 hours then as needed for shortness of breath or wheezing following cefdinir 300 mg capsule 300 mg PO BID 7 Days Qty: 14 0RF No Action oxybutynin chloride 10 mg tablet extended release 24hr 10 mg PO DAILY insulin regular hum U-500 conc 500 unit/mL (3 mL) insulin pen 120 unit SQ BIDWMEAL 30 Days Qty: 14.4 10RF insulin aspart U-100 [Novolog FlexPen U-100 Insulin] 100 unit/mL (3 mL) insulin pen 20 unit SQ TID Qty: 15 10RF Rx Instructions: take 20 units if bloodsugar is over 400 10 units if bloodsugar is over 300 levofloxacin 250 mg tablet 250 mg PO DAILY 10 Days Qty: 10 0RF albuterol sulfate 90 mcg/actuation HFA aerosol inhaler 2 inh inhalation Q6H PRN (Reason: shortness of breath or wheezing) 90 Days Qty: 8.5 3RF clopidogrel [Plavix] 75 mg tablet 75 mg PO DAILY Qty: 90 3RF pantoprazole 40 mg tablet,delayed release (DR/EC) 40 mg PO DAILY Qty: 90 0RF Rx Instructions: TAKE 1 TABLET EVERY DAY Stiolto Respimat 2.5-2.5 mcg/actuation mist 2 puff inhalation DAILY Qty: 4 0RF gemfibrozil 600 mg tablet See Rx Instructions .ROUTE .COMPLEX Qty: 180 0RF Dose Instruction: TAKE 1 TABLET TWICE DAILY FOR CHOLESTEROL Rx Instructions: TAKE 1 TABLET TWICE DAILY FOR CHOLESTEROL spironolactone 25 mg tablet See Rx Instructions .ROUTE .COMPLEX Qty: 90 0RF Dose Instruction: TAKE 1 TABLET EVERY DAY Rx Instructions: TAKE 1 TABLET EVERY DAY torsemide 10 mg tablet See Rx Instructions .ROUTE .COMPLEX Qty: 180 1RF Dose Instruction: TAKE 3 TABLETS BY MOUTH 2 TIMES A DAY FOR DIURETIC Rx Instructions: TAKE 3 TABLETS BY MOUTH 2 TIMES A DAY FOR DIURETIC gabapentin 300 mg capsule 300 mg PO BID Qty: 60 5RF (DME) pen needle, diabetic [BD Jayne 2nd Gen Pen Needle] 32 gauge x 5/32 needle See Rx Instructions .ROUTE .COMPLEX Qty: 100 12RF Dose Instruction: USE WITH INSULIN INJECTIONS Rx Instructions: USE WITH INSULIN INJECTIONS ferrous gluconate 324 mg (38 mg iron) tablet See Rx Instructions .ROUTE .COMPLEX Qty: 90 0RF Dose Instruction: TAKE ONE TABLET BY MOUTH ONCE A DAY FOR SUPPLEMENT Rx Instructions: TAKE ONE TABLET BY MOUTH ONCE A DAY FOR SUPPLEMENT rosuvastatin 40 mg tablet See Rx Instructions .ROUTE .COMPLEX Qty: 30 0RF Dose Instruction: TAKE ONE TABLET BY MOUTH ONCE A DAY Rx Instructions: TAKE ONE TABLET BY MOUTH ONCE A DAY polyethylene glycol 3350 238 GM powder 17 g PO BIDP PRN (Reason: Constipation) Referrals Follow up/Referrals: Noel Cabrera DO [Staff Physician] - See instructions Andres Valencia MD [Primary Care Provider] - See instructions Activity Restrictions/Add. Instructions Additional Instructions/Restrictions: Referral has been made to Dr. Alford for you to establish new primary care per your request. Your chest x-ray per my personal interpretation showed concern for right lower lobe pneumonia but was read as normal by the radiologist. It is possible that this is a viral cause of your symptoms which may take some time to get better. Nonetheless please take your antibiotics and your albuterol inhaler as instructed return to the emergency department any worsening symptoms otherwise you may follow-up with Dr. Alford at your earliest convenience. Clinical Impressions Clinical Impression: CAP (community acquired pneumonia), Acute exacerbation of chronic obstructive pulmonary disease Discharge ED Provider: Arlin Cloud General Adult HPI General Chief complaint: Upper Respiratory Infection Stated complaint: SOA Time Seen by Provider: 08/02/23 21:36 Mode of Arrival: Family Vehicle Source of Information: Patient Limitations: No Limitations Description of Symptoms (Recalled from ER Triage Doc. by RN): 83 yo male presents with CC of dyspnea. States he normally wears 4lpm O2 via nc at home intermittently but noticed an increase in demand/need for the supplementation over the last 2 days. REcent exposure to family member with RSV. States his cough 'sounds' productive but he cannot get anything 'up'. Denies n/v, but states he has had a couple episodes of loose stool. Denies angina, denies any new issues with UOP or swelling. Patient however admits to being non-compliant at this time with 'fluid pills' History of Present Illness HPI narrative: Patient is an 83-year-old male with a history of COPD presents today with several days of cough increased wheezing and shortness of breath. States that he has a history of coronary disease but no diagnosed history of heart failure that he is aware of.. He is on 4 L home oxygen which is his current state the moment. Denies any fevers or chills. Related Data Home Medications Medication Instructions Recorded Confirmed polyethylene glycol 3350 17 17 g PO BIDP PRN Constipation 01/04/22 06/20/23 gram/dose oral powder oxybutynin chloride 10 mg 10 mg PO DAILY 11/05/22 06/20/23 tablet,extended release 24 hr Previous Rx's Medication Instructions Recorded albuterol sulfate 90 mcg/actuation 2 inh inhalation Q6H PRN shortness 03/31/22 aerosol inhaler of breath or wheezing 90 days #8.5 grams clopidogrel 75 mg tablet (Plavix) 75 mg PO DAILY #90 tabs 10/28/22 insulin aspart U-100 100 unit/mL 20 unit (0.2 mL) SQ TID #15 mL 11/05/22 (3 mL) subcutaneous pen (Novolog FlexPen U-100 Insulin aspart) insulin regular hum U-500 conc 500 120 unit (0.24 mL) SQ BIDWMEAL 11/05/22 unit/mL(3 mL) subcut pen Diabetes 30 days #14.4 mL pantoprazole 40 mg tablet,delayed 40 mg PO DAILY GERD #90 tabs 12/14/22 release tiotropium 2.5 mcg-olodaterol 2.5 2 puff inhalation DAILY Breathing 12/14/22 mcg/actuation mist for inhalation problems #4 grams (Stiolto Respimat) levofloxacin 250 mg tablet 250 mg PO DAILY 10 days #10 tabs 02/24/23 gemfibrozil 600 mg tablet See Rx Instructions .Route 04/06/23 .COMPLEX #180 tabs spironolactone 25 mg tablet See Rx Instructions .Route 04/18/23 .COMPLEX #90 tabs torsemide 10 mg tablet See Rx Instructions .Route 04/22/23 .COMPLEX #180 tabs gabapentin 300 mg capsule 300 mg PO BID Pain #60 caps 05/18/23 pen needle, diabetic 32 gauge x #100 ea 06/01/23 (BD Jayne 2nd Gen Pen Needle) ferrous gluconate 324 mg (38 mg See Rx Instructions .Route 06/16/23 iron) tablet .COMPLEX #90 tabs rosuvastatin 40 mg tablet See Rx Instructions .Route 07/20/23 .COMPLEX #30 tabs albuterol sulfate 90 mcg/actuation 4 inh inhalation Q4H PRN shortness 08/02/23 aerosol inhaler of breath or wheezing #8.5 grams azithromycin 250 mg tablet 250 mg PO DAILY 4 days #4 tabs 08/02/23 cefdinir 300 mg capsule 300 mg PO BID 7 days #14 caps 08/02/23 Allergies Allergy/AdvReac Type Severity Reaction Status Date / Time oxycodone Allergy Intermediate I-RASH Verified 06/20/23 15:01 Sulfa (Sulfonamide Allergy Unknown Unknown Verified 06/20/23 15:01 Antibiotics) allergy reaction aspirin AdvReac Intermediate Other Verified 06/20/23 15:01 [facility] Disclaimer: The information contained in this section may have been updated after the patient was seen, as this information can be updated by other users. Medical History Abnormal EKG Atypical angina JUAN FRANCISCO (cerebral atherosclerosis) Chronic hypoxemic respiratory failure Claudication COPD (chronic obstructive pulmonary disease) Diabetes mellitus Dyspnea on exertion Edema HHD (hypertensive heart disease) Lung nodule Multiple pulmonary nodules Paroxysmal atrial fibrillation Pre-op evaluation Pulmonary emphysema Sleep apnea Stopped smoking with greater than 30 pack year history Surgical History History of heart artery stent History of prostate surgery Family History Other Anemia Coronary artery disease Diabetes Heart attack Hyperlipidemia Hypertension Stroke Social History Smoking Status: Unknown if ever smoked second hand exposure: No alcohol intake: never substance use type: denies use current occupational status: retired Travel in the last 8 weeks: None household members: spouse housing: house current occupational exposures/hazards: No caffeine: Yes ROS Obtained: Yes All systems reviewed & no additional complaints except as documented Physical Exam General General appearance: alert Respiratory Respiratory exam: Present other (Right lower lobe crackles has no respiratory distress) Cardiovascular Cardiovascular exam: Present regular rate Neurological Exam Neurological exam: Present alert and oriented X3 Medical Decision Making Bill Inquiry Pt receiving controlled substance: No Vital Signs: 08/02/23 20:41 08/02/23 20:45 08/02/23 21:00 Temperature 98.4 F Temperature Source Oral Pulse Rate 68 69 Pulse Rate [Right Brachial] 63 Respiratory Rate 15 Blood Pressure Blood Pressure [Right Arm] 144/101 H Blood Pressure Mean [Right Arm] 115 Blood Pressure Source [Right Arm] Automatic Cuff Blood Pressure Position [Right Arm] Sitting 02 Sat by Pulse Oximetry 97 97 97 Oxygen Delivery Method Room Air Nasal Cannula Nasal Cannula Oxygen Flow Rate (LPM) 4 4 08/02/23 21:30 08/02/23 22:00 08/02/23 22:11 Temperature Temperature Source Pulse Rate 76 69 71 Pulse Rate [Right Brachial] Respiratory Rate Blood Pressure 155/47 H Blood Pressure [Right Arm] Blood Pressure Mean [Right Arm] Blood Pressure Source [Right Arm] Blood Pressure Position [Right Arm] 02 Sat by Pulse Oximetry 97 96 Oxygen Delivery Method Nasal Cannula Nasal Cannula Oxygen Flow Rate (LPM) 4 4 Lab Data Lab results reviewed: Yes I reviewed the patient's lab results. Lab Results 08/02/23 20:35: SARS-CoV-2 (PCR) Not detected, Influenza A Untype (PCR) Not detected, Influenza Type B (PCR) Not detected 08/02/23 21:00: WBC 4.4 L, RBC 4.49 L, Hgb 11.6 L, Hct 36.6 L, MCV 81.5, MCH 25.8 L, MCHC 31.7 L, RDW 18.1 H, Plt Count 217, MPV 8.2, Neut % (Auto) 65.7, Lymph % (Auto) 22.4, [place] % (Auto) 7.7, Eos % (Auto) 3.6, Baso % (Auto) 0.6, Neut # (Auto) 2.9, Lymph # (Auto) 1.0, [place] # (Auto) 0.3, Eos # (Auto) 0.2, Baso # (Auto) 0.0, Sodium 141, Potassium 3.7, Chloride 105, Carbon Dioxide 28, Anion Gap 11.7, BUN 24 H, Creatinine 1.70 H, Estimated Creat Clear 49, Estimated GFR 39 L, Est GFR ( Amer) 47 L, Glucose 112 H, Calcium 7.9 L, Total Bilirubin 0.4, AST 41, ALT 28, Alkaline Phosphatase 106, Troponin I 0.03, NT-Pro-B Natriuret Pep 2460 H, Total Protein 6.4, Albumin 3.7, Globulin 2.7, Albumin/Globulin Ratio 1.4 08/02/23 21:00 08/02/23 21:00 Orders (Tests/Meds): ED MEDICATIONS Discontinued Medications Generic Name Dose Route Start Last Admin Trade Name Freq PRN Reason Stop Dose Admin Albuterol/Ipratropium 3 ml 08/02/23 21:42 08/02/23 22:10 Ipratropium/Albuterol 3 Ml Neb IH 08/02/23 21:43 3 ml ONCE ONE Administration Azithromycin 500 mg 08/02/23 21:42 08/02/23 22:05 Azithromycin 250mg Tablet PO 08/02/23 21:43 500 mg ONCE ONE Administration Cefdinir 300 mg 08/02/23 21:43 08/02/23 22:05 Cefdinir 300mg Capsule PO 08/02/23 21:44 300 mg ONCE ONE Administration Dexamethasone Sodium Phosphate 10 mg 08/02/23 21:42 08/02/23 22:05 Dexamethasone 4mg/Ml 1ml Vial IV 08/02/23 21:43 10 mg ONCE ONE Administration Magnesium Sulfate 2 gm in 50 mls @ 50 mls/hr 08/02/23 21:42 08/02/23 22:04 Magnesium Sulfate 2gm/50ml Premix IV 08/02/23 22:41 50 mls/hr ONCE ONE Administration ORDERS Category Date Time Status Chest XR -- portable [XR chest portable] Stat Exams 08/02/23 20:50 Completed BNP [Brain Natriuretic Peptide] Stat Lab 08/02/23 21:00 Completed Complete Blood Count Auto Diff Stat Lab 08/02/23 21:00 Completed Comprehensive Metabolic Panel Stat Lab 08/02/23 21:00 Completed Rapid PCR Covid and Flu A/B Stat Lab 08/02/23 20:35 Completed Trop I [Troponin I] Stat Lab 08/02/23 21:00 Completed Troponin I Q3H Lab 08/03/23 00:45 Ordered Troponin I Q3H Lab 08/03/23 03:45 Ordered Medical Decision Narrative: Patient is an 83-year-old male presenting today with cough wheezing increase shortness of breath over the last several days with right lower lobe crackles a chest x-ray performed which I personally interpreted shows right lower lobe opacity concerning for pneumonia. Will treat as a COPD exacerbation underlying bacterial infection. Omnicef and azithromycin have been administered in the emergency department addition to nebs steroids magnesium will reassess. Reassessment 10:58 PM patient remains similar to his initial presentation does not feel significantly better. He is not any respiratory distress no increased oxygen requirement as stated above but he is at his home oxygen requirement. Chest x-ray performed which I personally interpreted shows right lower lobe opacity however radiology read this is normal. I will treat him given my clinical concern especially with his right lower lobe focal adventitious lung sounds on my exam. I explained to him that this however may be viral but we will err on the side of treating him with antibiotic therapy. BNP mildly elevated but is chronically elevated no significant pulmonary edema or pleural effusions on chest x-ray creatinine is elevated but chronically elevated. Patient advised to follow-up with primary care doctor he requested a new primary care doctor and specifically requested to be seen by Dr. Alford whom I gave him a referral to new was discharged in stable condition Critical Care Critical Care Time Critical Care Time: No
[2023-08-02] MEDS: MAGNESIUM SULFATE IN WATER 2 GM/50 ML PIGGYBACK IV (22:04)
[2023-08-02] MEDS: DEXAMETHASONE 4MG/ML 1ML VIAL 10 MG IV (22:05)
[2023-08-02] MEDS: CEFDINIR 300MG CAPSULE 300 MG PO (22:05)
[2023-08-02] MEDS: AZITHROMYCIN 250MG TABLET 500 MG PO (22:05)
[2023-08-02] MEDS: IPRATROPIUM/ALBUTEROL 3 ML NEB IH (22:10)
[2023-08-02 22:11] LABS: NT Pro Brain Natriuretic Pep. 2460 pg/mL (0-450)
[2023-08-02 22:13] LABS: Troponin I 0.03 ng/ml (0.00-0.034)
== END 2023-08-02 23:10 | disposition home or self-care (01) ==
PROVIDERS: Emergency Provider Student in an Organized Health Care Education/Training Program; PCP Family Medicine
DX: J44.1 Chronic obstructive pulmonary disease with (acute) exacerbation (principal); J18.9 Pneumonia, unspecified organism; R05.9 Cough, unspecified; R06.2 Wheezing; I67.2 Cerebral atherosclerosis; I20.9 Angina pectoris, unspecified; E11.9 Type 2 diabetes mellitus without complications; I11.9 Hypertensive heart disease without heart failure; I48.0 Paroxysmal atrial fibrillation; G47.30 Sleep apnea, unspecified; Z87.891 Personal history of nicotine dependence
CPT/HCPCS: 71045; 80053; 83880; 84484; 85025; 87636; 96361; 96374; 99285; J3475

== ENCOUNTER 2023-08-08 05:42 | Emergency (ER) | payer MEDICARE, SELFPAY ==
--- NOTE | 2023-08-08 05:37 | HMH.EDGENADL ---
Discharge Plan Disposition Patient Disposition: Home, Self-Care Prescriptions Prescriptions: New cefdinir 300 mg capsule 300 mg PO BID 5 Days Qty: 10 0RF No Action oxybutynin chloride 10 mg tablet extended release 24hr 10 mg PO DAILY insulin regular hum U-500 conc 500 unit/mL (3 mL) insulin pen 120 unit SQ BIDWMEAL 30 Days Qty: 14.4 10RF insulin aspart U-100 [Novolog FlexPen U-100 Insulin] 100 unit/mL (3 mL) insulin pen 20 unit SQ TID Qty: 15 10RF Rx Instructions: take 20 units if bloodsugar is over 400 10 units if bloodsugar is over 300 levofloxacin 250 mg tablet 250 mg PO DAILY 10 Days Qty: 10 0RF albuterol sulfate 90 mcg/actuation HFA aerosol inhaler 2 inh inhalation Q6H PRN (Reason: shortness of breath or wheezing) 90 Days Qty: 8.5 3RF clopidogrel [Plavix] 75 mg tablet 75 mg PO DAILY Qty: 90 3RF pantoprazole 40 mg tablet,delayed release (DR/EC) 40 mg PO DAILY Qty: 90 0RF Rx Instructions: TAKE 1 TABLET EVERY DAY Stiolto Respimat 2.5-2.5 mcg/actuation mist 2 puff inhalation DAILY Qty: 4 0RF gemfibrozil 600 mg tablet See Rx Instructions .ROUTE .COMPLEX Qty: 180 0RF Dose Instruction: TAKE 1 TABLET TWICE DAILY FOR CHOLESTEROL Rx Instructions: TAKE 1 TABLET TWICE DAILY FOR CHOLESTEROL spironolactone 25 mg tablet See Rx Instructions .ROUTE .COMPLEX Qty: 90 0RF Dose Instruction: TAKE 1 TABLET EVERY DAY Rx Instructions: TAKE 1 TABLET EVERY DAY torsemide 10 mg tablet See Rx Instructions .ROUTE .COMPLEX Qty: 180 1RF Dose Instruction: TAKE 3 TABLETS BY MOUTH 2 TIMES A DAY FOR DIURETIC Rx Instructions: TAKE 3 TABLETS BY MOUTH 2 TIMES A DAY FOR DIURETIC gabapentin 300 mg capsule 300 mg PO BID Qty: 60 5RF (DME) pen needle, diabetic [BD Jayne 2nd Gen Pen Needle] 32 gauge x /32 needle See Rx Instructions .ROUTE .COMPLEX Qty: 100 12RF Dose Instruction: USE WITH INSULIN INJECTIONS Rx Instructions: USE WITH INSULIN INJECTIONS ferrous gluconate 324 mg (38 mg iron) tablet See Rx Instructions .ROUTE .COMPLEX Qty: 90 0RF Dose Instruction: TAKE ONE TABLET BY MOUTH ONCE A DAY FOR SUPPLEMENT Rx Instructions: TAKE ONE TABLET BY MOUTH ONCE A DAY FOR SUPPLEMENT rosuvastatin 40 mg tablet See Rx Instructions .ROUTE .COMPLEX Qty: 30 0RF Dose Instruction: TAKE ONE TABLET BY MOUTH ONCE A DAY Rx Instructions: TAKE ONE TABLET BY MOUTH ONCE A DAY polyethylene glycol 3350 238 GM powder 17 g PO BIDP PRN (Reason: Constipation) azithromycin 250 mg tablet 250 mg PO DAILY 4 Days Qty: 4 0RF Rx Instructions: start on day 2 of therapy (day after ED visit) albuterol sulfate 90 mcg/actuation HFA aerosol inhaler 4 inh inhalation Q4H PRN (Reason: shortness of breath or wheezing) Qty: 8.5 0RF Rx Instructions: 4 puffs every 4 hours for 48 hours then as needed for shortness of breath or wheezing following cefdinir 300 mg capsule 300 mg PO BID 7 Days Qty: 14 0RF Referrals Follow up/Referrals: Noel Cabrera DO [Staff Physician] - See instructions Provider,Referral, [Primary Care Provider] - See instructions Activity Restrictions/Add. Instructions Additional Instructions/Restrictions: Decrease insulin from 140 units at night to 75. Recheck your blood glucose in the morning. If greater than 300, use corrective insulin, but continue taking 140 units of insulin in the morning. Continue to titrate up until your glucose is controlled, but you are not having hypoglycemic episodes in the mornings. Be sure to do this under the discretion of family doctor. Dr. Alford's information has been placed here, call his office and tell them you want to set up care. You were evaluated in the emergency department today. Please make sure that you take your blood sugar at least 3 times a day. Take your insulin as instructed by your primary care provider. Monitor for symptoms of hypoglycemia, such as shakiness, altered mental status, diaphoresis, and weakness. Eat well-balanced meals. Follow-up with your primary care provider over the next 3 days. Return to the emergency department for new or worsening symptoms. Omnicef sent to the pharmacy, take this for another 5 days. Clinical Impressions Clinical Impression: Hypoglycemia, Pneumonia Instructions Patient Instructions: Insulin, DI for Hypoglycemia Discharge ED Provider: Cinthia Nicolas General Adult HPI <Cinthia Nicolas DO - Last Filed: 08/08/23 06:54> General Chief complaint: Hyper/Hypoglycemia Stated complaint: low blood sugar Time Seen by Provider: 08/08/23 05:46 History of Present Illness HPI narrative: This patient is an 83-year-old male with a history of insulin diabetes, CKD, obesity, CAD status post CABG, COPD on 2 L nasal cannula chronically, chronic anemia, and JODY presenting to the emergency department for evaluation with concern for hypoglycemia. Patient arrives by EMS who provides most of the history. They note that they frequently get called out to the patient's home because the wakes to find him somnolent and hypoglycemic. That was the case this morning, and blood sugar at home was noted to be in the 40s. The could not wake the patient up, so she called EMS. Typically, EMS notes that they will give him an amp of D50, and then the patient will become coherent and refused transport to the hospital. This time, they were unable to establish IV access. They gave him IM glucagon, however fingerstick was noted to be 37 so they brought him in for further evaluation and management. They note that he was initially somnolent and unresponsive, however upon arrival, he is starting to wake up. Fingerstick here is 91 initially. Patient is alert and conversational with no memory of the events that transpired this morning or how he got here. He denies any concerns or complaints at this time. No note of any recent infectious symptoms. Related Data Home Medications Medication Instructions Recorded Confirmed polyethylene glycol 3350 17 17 g PO BIDP PRN Constipation 01/04/22 06/20/23 gram/dose oral powder oxybutynin chloride 10 mg 10 mg PO DAILY 11/05/22 06/20/23 tablet,extended release 24 hr Previous Rx's Medication Instructions Recorded albuterol sulfate 90 mcg/actuation 2 inh inhalation Q6H PRN shortness 03/31/22 aerosol inhaler of breath or wheezing 90 days #8.5 grams clopidogrel 75 mg tablet (Plavix) 75 mg PO DAILY #90 tabs 10/28/22 insulin aspart U-100 100 unit/mL 20 unit (0.2 mL) SQ TID #15 mL 11/05/22 (3 mL) subcutaneous pen (Novolog FlexPen U-100 Insulin aspart) insulin regular hum U-500 conc 500 120 unit (0.24 mL) SQ BIDWMEAL 11/05/22 unit/mL(3 mL) subcut pen Diabetes 30 days #14.4 mL pantoprazole 40 mg tablet,delayed 40 mg PO DAILY GERD #90 tabs 12/14/22 release tiotropium 2.5 mcg-olodaterol 2.5 2 puff inhalation DAILY Breathing 12/14/22 mcg/actuation mist for inhalation problems #4 grams (Stiolto Respimat) levofloxacin 250 mg tablet 250 mg PO DAILY 10 days #10 tabs 02/24/23 gemfibrozil 600 mg tablet See Rx Instructions .Route 04/06/23 .COMPLEX #180 tabs spironolactone 25 mg tablet See Rx Instructions .Route 04/18/23 .COMPLEX #90 tabs torsemide 10 mg tablet See Rx Instructions .Route 04/22/23 .COMPLEX #180 tabs gabapentin 300 mg capsule 300 mg PO BID Pain #60 caps 05/18/23 pen needle, diabetic 32 gauge x #100 ea 06/01/23 (BD Jayne 2nd Gen Pen Needle) ferrous gluconate 324 mg (38 mg See Rx Instructions .Route 06/16/23 iron) tablet .COMPLEX #90 tabs rosuvastatin 40 mg tablet See Rx Instructions .Route 07/20/23 .COMPLEX #30 tabs albuterol sulfate 90 mcg/actuation 4 inh inhalation Q4H PRN shortness 08/02/23 aerosol inhaler of breath or wheezing #8.5 grams azithromycin 250 mg tablet 250 mg PO DAILY 4 days #4 tabs 08/02/23 cefdinir 300 mg capsule 300 mg PO BID 7 days #14 caps 08/02/23 cefdinir 300 mg capsule 300 mg PO BID 5 days #10 caps 08/08/23 Allergies Allergy/AdvReac Type Severity Reaction Status Date / Time oxycodone Allergy Intermediate I-RASH Verified 06/20/23 15:01 Sulfa (Sulfonamide Allergy Unknown Unknown Verified 06/20/23 15:01 Antibiotics) allergy reaction aspirin AdvReac Intermediate Other Verified 06/20/23 15:01 [facility] <Cinthia Nicolas, DO - Last Filed: 08/08/23 06:54> [facility] Disclaimer: The information contained in this section may have been updated after the patient was seen, as this information can be updated by other users. Medical History Abnormal EKG Atypical angina JUAN FRANCISCO (cerebral atherosclerosis) Chronic hypoxemic respiratory failure Claudication COPD (chronic obstructive pulmonary disease) Diabetes mellitus Dyspnea on exertion Edema HHD (hypertensive heart disease) Lung nodule Multiple pulmonary nodules Paroxysmal atrial fibrillation Pre-op evaluation Pulmonary emphysema Sleep apnea Stopped smoking with greater than 30 pack year history Surgical History History of heart artery stent History of prostate surgery Family History Other Anemia Coronary artery disease Diabetes Heart attack Hyperlipidemia Hypertension Stroke Social History Smoking Status: Former smoker tobacco type: cigarettes packs per day: 2 second hand exposure: No alcohol intake: never substance use type: denies use current occupational status: retired Travel in the last 8 weeks: None household members: spouse housing: house current occupational exposures/hazards: No caffeine: Yes <Cinthia Nicolas DO - Last Filed: 08/08/23 06:54> ROS Obtained: Yes All systems reviewed & no additional complaints except as documented Physical Exam <Cinthia Nicolas DO - Last Filed: 08/08/23 06:54> General General appearance: alert, in no apparent distress and obese Head Head exam: atraumatic and normocephalic Eye Eye exam: Present normal appearance, PERRL and EOMI ENT ENT exam: Present normal exam, normal oropharynx, mucous membranes moist and normal external ear exam Neck Neck exam: Present normal inspection, full ROM and trachea midline; Absent tenderness Chest Chest inspection: Present normal inspection and symmetric chest wall rise; Absent tenderness Respiratory Respiratory exam: Present normal lung sounds bilaterally; Absent respiratory distress, wheezes, stridor or accessory muscle use Cardiovascular Cardiovascular exam: Present regular rate and normal rhythm Abdominal Exam Abdominal exam: Present soft; Absent distention, tenderness or guarding Extremities Exam Extremities exam: Present normal inspection, full ROM and normal capillary refill; Absent tenderness or edema Back Exam Back exam: Present normal inspection and full ROM; Absent tenderness Neurological Exam Neurological exam: Present alert, oriented X3, CN II-XII intact and normal gait; Absent motor sensory deficit Psychiatric Psychiatric exam: Present normal affect and normal mood Skin Skin exam: Present warm and dry Medical Decision Making <Cinthia Nicolas DO - Last Filed: 08/08/23 06:54> Medical Records Medical records reviewed: Yes I reviewed the patient's medical records. Bill Inquiry Pt receiving controlled substance: No Vital Signs: 08/08/23 05:42 08/08/23 06:31 08/08/23 07:01 Temperature 97.8 F Temperature Source Oral Pulse Rate 65 72 Pulse Rate [Right] 74 Respiratory Rate 22 14 16 Blood Pressure 135/46 L 172/65 H Blood Pressure [Right Arm] 136/61 Blood Pressure Mean [Right Arm] 86 02 Sat by Pulse Oximetry 94 L 93 L 92 L Oxygen Delivery Method Nasal Cannula Room Air 08/08/23 07:31 Temperature Temperature Source Pulse Rate 71 Pulse Rate [Right] Respiratory Rate 20 Blood Pressure 147/61 H Blood Pressure [Right Arm] Blood Pressure Mean [Right Arm] 02 Sat by Pulse Oximetry 93 L Oxygen Delivery Method Room Air Lab Data Lab results reviewed: Yes I reviewed the patient's lab results. Lab Results 08/08/23 05:40: WBC 6.9, RBC 4.30 L, Hgb 11.2 L, Hct 34.9 L, MCV 81.1, MCH 26.1 L, MCHC 32.2, RDW 17.9 H, Plt Count 200, MPV 7.9, Neut % (Auto) 86.1 H, Lymph % (Auto) 8.3 L, Gilchrist % (Auto) 4.1, Eos % (Auto) 1.3, Baso % (Auto) 0.2, Neut # (Auto) 5.9, Lymph # (Auto) 0.6 L, Gilchrist # (Auto) 0.3, Eos # (Auto) 0.1, Baso # (Auto) 0.0, Total Counted 100, Neutrophils % (Manual) 87 H, Band Neutrophils % 1.0, Lymphocytes % (Manual) 3 L, Monocytes % (Manual) 6, Eosinophils % (Manual) 3, Platelet Estimate Normal, RBC Morphology Normal, Sodium 142, Potassium 3.3 L, Chloride 110 H, Carbon Dioxide 27, Anion Gap 8.3, BUN 29 H, Creatinine 1.90 H, Estimated Creat Clear 47, Estimated GFR 34 L, Est GFR ( Amer) 41 L, Glucose 104 H, Calcium 8.0 L, Total Bilirubin 0.3, AST 31, ALT 24, Alkaline Phosphatase 84, Total Protein 6.0 L, Albumin 3.4 L, Globulin 2.6, Albumin/Globulin Ratio 1.3 08/08/23 07:50: Urine Color Yellow, Urine Appearance Clear, Urine pH 5.5, Ur Specific [place] 1.025, Urine Protein 1+, Urine Glucose (UA) Trace, Urine Ketones Negative, Urine Blood 3+, Urine Nitrate Negative, Urine Bilirubin Negative, Urine Urobilinogen 0.2, Ur Leukocyte Esterase Negative, Urine RBC 10-20, Urine WBC Occasional, Ur Squamous Epith Cells Occasional, Urine Bacteria Trace 08/08/23 05:40 08/08/23 05:40 Orders (Tests/Meds): ED MEDICATIONS Discontinued Medications Generic Name Dose Route Start Last Admin Trade Name Freq PRN Reason Stop Dose Admin Dextrose 50 ml 08/08/23 05:32 Dextrose 50% 50ml Syringe (Crash Cart) IVP 08/08/23 05:33 ONCE ONE Ceftriaxone Sodium 1 gm/ 50 mls @ 100 mls/hr 08/08/23 08:51 08/08/23 09:17 Sodium Chloride IV 08/08/23 09:20 100 mls/hr ONCE ONE Administration Potassium Chloride 60 meq 08/08/23 08:21 08/08/23 09:17 Potassium Chloride 20meq Tab PO 08/08/23 08:22 60 meq ONCE ONE Administration ORDERS Category Date Time Status XR chest portable Stat Exams 08/08/23 06:51 Completed Complete Blood Count Auto Diff Stat Lab 08/08/23 05:40 Completed Comprehensive Metabolic Panel Stat Lab 08/08/23 05:40 Completed Urinalysis and Microscopic Stat Lab 08/08/23 07:50 Completed ECG initial Besson Routine Y 08/08/23 05:48 Completed ECG Data Tracing #1: I reviewed this ECG and interpreted as documented below: Atrial fibrillation with a ventricular rate of 67 bpm. Left bundle branch block noted. No acute ST changes concerning for ischemia. No significant changes noted from prior EKG. ECG initial impression date: 08/08/23 ECG initial impression time: 05:49 Medical Decision Narrative: In summary, this patient is a 83-year-old male presenting to the Emergency Department for evaluation of hypoglycemia. Differential diagnoses considered include but are not limited to medication mismanagement, hypoglycemia, sepsis, pneumonia, urinary tract infection. Ruling out the most morbid conditions drove assessment. It should be noted patient's history includes paroxysmal atrial fibrillation, insulin-dependent diabetes, CAD status post CABG, hypertension, hyperlipidemia, and COPD on 2 L nasal cannula which may or may not be at goal therapy. This complicates all aspects of care by increasing patient's risk for morbidity. On exam, the patient has a fingerstick of 91. This is after receiving IM glucagon prior to arrival. He is alert and conversational. He denies any concerns or complaints and is stable on his home oxygen. Vitals are reassuring on cardiac telemetry, and exam is reassuring. Workup included CBC, CMP, EKG, and urinalysis. EKG is reassuring with no significant changes from prior EKG. Initially D50 was ordered, however this was not given as the patient's blood glucose is 91 and he is now able to tolerate oral intake given significantly improved mental status. We are continuing to monitor his blood glucose at this time. Labs were obtained that did not demonstrate any acutely concerning abnormalities. On reassessment the patient is resting comfortably with no concerns or complaints. He has been eating and drinking without issue, but even so, his repeat fingerstick is 89. Vitals remain reassuring on cardiac telemetry. Patient is still eating at this time. He now notes he is concerned he has pneumonia after denying concerns earlier. He was seen here 08/08/23 and diagnosed with COPD exacerbation and possible developing pneumonia. He is afebrile without leukocytosis, cardiopulmonary exam is reassuring, and he is resting comfortably on his home O2. CXR was ordered to further assess. Will continue to monitor his blood glucose. Patient was placed into ED observation status at 06 45 for continued monitoring of his blood glucose. Patient care signed out to the oncoming provider, Dr. Benitez. <Dixon Benitez MD - Last Filed: 08/08/23 09:45> Vital Signs: 08/08/23 05:42 08/08/23 06:31 08/08/23 07:01 Temperature 97.8 F Temperature Source Oral Pulse Rate 65 72 Pulse Rate [Right] 74 Respiratory Rate 22 14 16 Blood Pressure 135/46 L 172/65 H Blood Pressure [Right Arm] 136/61 Blood Pressure Mean [Right Arm] 86 02 Sat by Pulse Oximetry 94 L 93 L 92 L Oxygen Delivery Method Nasal Cannula Room Air 08/08/23 07:31 Temperature Temperature Source Pulse Rate 71 Pulse Rate [Right] Respiratory Rate 20 Blood Pressure 147/61 H Blood Pressure [Right Arm] Blood Pressure Mean [Right Arm] 02 Sat by Pulse Oximetry 93 L Oxygen Delivery Method Room Air Lab Data Lab Results 08/08/23 05:40: WBC 6.9, RBC 4.30 L, Hgb 11.2 L, Hct 34.9 L, MCV 81.1, MCH 26.1 L, MCHC 32.2, RDW 17.9 H, Plt Count 200, MPV 7.9, Neut % (Auto) 86.1 H, Lymph % (Auto) 8.3 L, Gilchrist % (Auto) 4.1, Eos % (Auto) 1.3, Baso % (Auto) 0.2, Neut # (Auto) 5.9, Lymph # (Auto) 0.6 L, Gilchrist # (Auto) 0.3, Eos # (Auto) 0.1, Baso # (Auto) 0.0, Total Counted 100, Neutrophils % (Manual) 87 H, Band Neutrophils % 1.0, Lymphocytes % (Manual) 3 L, Monocytes % (Manual) 6, Eosinophils % (Manual) 3, Platelet Estimate Normal, RBC Morphology Normal, Sodium 142, Potassium 3.3 L, Chloride 110 H, Carbon Dioxide 27, Anion Gap 8.3, BUN 29 H, Creatinine 1.90 H, Estimated Creat Clear 47, Estimated GFR 34 L, Est GFR ( Amer) 41 L, Glucose 104 H, Calcium 8.0 L, Total Bilirubin 0.3, AST 31, ALT 24, Alkaline Phosphatase 84, Total Protein 6.0 L, Albumin 3.4 L, Globulin 2.6, Albumin/Globulin Ratio 1.3 08/08/23 07:50: Urine Color Yellow, Urine Appearance Clear, Urine pH 5.5, Ur Specific [place] 1.025, Urine Protein 1+, Urine Glucose (UA) Trace, Urine Ketones Negative, Urine Blood 3+, Urine Nitrate Negative, Urine Bilirubin Negative, Urine Urobilinogen 0.2, Ur Leukocyte Esterase Negative, Urine RBC 10-20, Urine WBC Occasional, Ur Squamous Epith Cells Occasional, Urine Bacteria Trace Orders (Tests/Meds): ED MEDICATIONS Discontinued Medications Generic Name Dose Route Start Last Admin Trade Name Freq PRN Reason Stop Dose Admin Dextrose 50 ml 08/08/23 05:32 Dextrose 50% 50ml Syringe (Crash Cart) IVP 08/08/23 05:33 ONCE ONE Ceftriaxone Sodium 1 gm/ 50 mls @ 100 mls/hr 08/08/23 08:51 08/08/23 09:17 Sodium Chloride IV 08/08/23 09:20 100 mls/hr ONCE ONE Administration Potassium Chloride 60 meq 08/08/23 08:21 08/08/23 09:17 Potassium Chloride 20meq Tab PO 08/08/23 08:22 60 meq ONCE ONE Administration ORDERS Category Date Time Status XR chest portable Stat Exams 08/08/23 06:51 Completed Complete Blood Count Auto Diff Stat Lab 08/08/23 05:40 Completed Comprehensive Metabolic Panel Stat Lab 08/08/23 05:40 Completed Urinalysis and Microscopic Stat Lab 08/08/23 07:50 Completed ECG initial Besson Routine Y 08/08/23 05:48 Completed Medical Decision Narrative: In summary, this patient is a 83-year-old male presenting to the Emergency Department for evaluation of hypoglycemia. Differential diagnoses considered include but are not limited to medication mismanagement, hypoglycemia, sepsis, pneumonia, urinary tract infection. Ruling out the most morbid conditions drove assessment. It should be noted patient's history includes paroxysmal atrial fibrillation, insulin-dependent diabetes, CAD status post CABG, hypertension, hyperlipidemia, and COPD on 2 L nasal cannula which may or may not be at goal therapy. This complicates all aspects of care by increasing patient's risk for morbidity. On exam, the patient has a fingerstick of 91. This is after receiving IM glucagon prior to arrival. He is alert and conversational. He denies any concerns or complaints and is stable on his home oxygen. Vitals are reassuring on cardiac telemetry, and exam is reassuring. Workup included CBC, CMP, EKG, and urinalysis. EKG is reassuring with no significant changes from prior EKG. Initially D50 was ordered, however this was not given as the patient's blood glucose is 91 and he is now able to tolerate oral intake given significantly improved mental status. We are continuing to monitor his blood glucose at this time. Labs were obtained that did not demonstrate any acutely concerning abnormalities. On reassessment the patient is resting comfortably with no concerns or complaints. He has been eating and drinking without issue, but even so, his repeat fingerstick is 89. Vitals remain reassuring on cardiac telemetry. Patient is still eating at this time. He now notes he is concerned he has pneumonia after denying concerns earlier. He was seen here 08/08/23 and diagnosed with COPD exacerbation and possible developing pneumonia. He is afebrile without leukocytosis, cardiopulmonary exam is reassuring, and he is resting comfortably on his home O2. CXR was ordered to further assess. Will continue to monitor his blood glucose. Patient was placed into ED observation status at 06 45 for continued monitoring of his blood glucose. Patient care signed out to the oncoming provider, Dr. Benitez. Eli: I assume primary responsibility for this patient after signout from previous physician. Repeat evaluation, patient tolerating p.o. intake without issue. Repeat glucose 90, then repeat 105. Independent interpretation of workup demonstrates nonactionable CBC. Chemistry is stable kidney function with creatinine 1.9 and BUN 29, GFR 34. UA without concern for UTI, likely chronic kidney disease with blood, protein, squamous cells, and trace bacteria. No markers of inflammation otherwise. Chest x-ray with streaking and obscuring of heart border and left lung base concerning for possible airspace disease. Patient was given 1 g ceftriaxone IV. Period of observation ended at 8 AM. Conversation was had with patient regarding insulin, states he takes 140 insulin units at night, it was recommended that he decrease this given multiple episodes of hypoglycemia in the recent past. He voices understanding and need to follow-up with PCP. Because patient at baseline without signs or symptoms of clinical decompensation, deemed appropriate for discharge. Results were relayed to patient who voiced understanding and were agreeable to outpatient management and follow up. At the time of discharge the patient was hemodynamically stable, tolerating PO, and mobilizing appropriately. Critical Care <Cinthia Nicolas, DO - Last Filed: 08/08/23 06:54> Critical Care Time Critical Care Time: No
[2023-08-08 05:42] VITALS: BP 136/61; PULSE 74; RESP 22; TEMP 36.6; O2SAT 94; BMI 37.7
--- NOTE | 2023-08-08 05:48 | ECG_ITS ---
APPROVED REPORT Exam: Resting ECG HR:67 bpm ECG Measurements Heart Rate 67 AXES QRSd 146 QRS 75 QT 462 T 213 QTc 478 Conclusion ATRIAL FIBRILLATION LEFT BUNDLE BRANCH BLOCK [120+ ms QRS DURATION, 80+ ms Q/S IN V1/V2, 85+ ms R IN I/aVL/V5/V6] ABNORMAL ECG UNCONFIRMED REPORT Electronically signed by : Rom Brady MD 08/08/2023 17:47:19
[2023-08-08 06:01] LABS: Basophils % 0.2 % (0.1-2.0); Eosinophils # 0.1 K/mm3 (0.0-0.4); Eosinophils % 1.3 % (0.1-12.0); Hematocrit 34.9 % (42.0-52.0); Hemoglobin 11.2 g/dL (14.1-18.0); Lymphocytes # 0.6 K/mm3 (0.7-4.5); Lymphocytes % 8.3 % (10-50); Mean Corpuscular HGB Conc 32.2 g/dL (31.8-35.4); Mean Corpuscular Hemoglobin 26.1 pg (27.0-31.2); Mean Corpuscular Volume 81.1 fl (80-94); Mean Platelet Volume 7.9 fl (7.4-10.4); Monocytes # 0.3 K/mm3 (0.1-1.0); Monocytes % 4.1 % (1.7-9.3); Neutrophils # 5.9 K/mm3 (1.8-7.8); Neutrophils % 86.1 % (37.0-80.0); Platelet Count 200 K/mm3 (142-424); Red Cell Distribution Width 17.9 % (11.5-17.5); White Blood Count 6.9 K/mm3 (4.8-10.8)
[2023-08-08 06:04] LABS: MANUAL DIFFERENTIAL MANUAL DIFFERENTIAL (MANUAL DIFF)
[2023-08-08 06:09] LABS: Alanine Aminotransferase 24 U/L (12-78); Albumin Level 3.4 g/dl (3.5-5.0); Albumin/Globulin Ratio 1.3 (1.1-1.8); Alkaline Phosphatase 84 U/L (38-126); Anion Gap 8.3 mEq/L (5-15); Aspartate Amino Transferase 31 U/L (17-59); Bilirubin,Total 0.3 mg/dl (0.2-1.3); Blood Urea Nitrogen 29 mg/dl (9-20); Carbon Dioxide 27 mmol/L (22.0-30.0); Chloride 110 mmol/L (98-107); Creatinine Clearance Estimated 47 mL/min (50-200); Estimated Glomerular Filt Rate 34 ml/min (>60); GFR (African American) 41 ML/MIN (>60); Globulin 2.6 g/dL (1.3-3.2); Glucose 104 mg/dl (74-100); Potassium 3.3 mmoL/L (3.5-5.1); Sodium 142 mmol/L (136-145)
[2023-08-08 06:31] VITALS: BP 135/46; PULSE 65; RESP 14; O2SAT 93
--- NOTE | 2023-08-08 06:51 | XR_ITS ---
FINAL REPORT TECHNIQUE: Single view chest CLINICAL HISTORY: cough, SOA, pneumonia COMPARISON: 08/03/2023 FINDINGS: A single view of the chest was obtained. Patient is status post median sternotomy. The heart and mediastinum are within normal limits. There are right base opacities which may represent atelectasis or pneumonia. There is no pneumothorax. Osseous structures are unremarkable. IMPRESSION: Right base opacities which may represent atelectasis or pneumonia. Reviewed, Interpreted and Dictated by Marco Antonio Griffiths III, MD Transcribed by Jessica Dubon Authenticated and [facility]
[2023-08-08 07:01] VITALS: BP 172/65; PULSE 72; RESP 16; O2SAT 92
--- NOTE | 2023-08-08 07:18 | PC.NURSE ---
Rounded on pt. FSBS: 89. Pt provided with urinal and educated that we need to collect a urine sample. Call light within reach. No other needs voiced.
[2023-08-08 07:31] VITALS: BP 147/61; PULSE 71; RESP 20; O2SAT 93
[2023-08-08 07:53] LABS: Eosinophils % 3 % (0-3); Lymphocytes % 3 % (10-50); Monocytes % 6 % (2-9); Neutrophils % 87 % (42-76); Total Cells Counted 100
[2023-08-08 07:55] LABS: Platelet Estimate Normal; RBC Morphology Normal
[2023-08-08 07:56] LABS: Microscopic, Urine URINE MICROSCOPIC (MICROSCOPIC)
[2023-08-08 07:57] LABS: Appearance,Urine CLEAR (Clear); Bilirubin,Urine Negative (Negative); Blood, Urine 3+ (Negative); Color,Urine YELLOW (Yellow); Glucose,Urine (UA) TRACE (Negative); Ketones,Urine Negative (Negative); Leukocyte Esterase,Urine Negative (Negative); Nitrate,Urine Negative (Negative); PH,Urine 5.5 (5.0-8.5); Protein,Urine 1+ (Negative); Specific Gravity, Urine 1.025 (1.005-1.030); Urobilinogen,Urine 0.2 EU/dl (0.2)
[2023-08-08 08:13] LABS: WBC,Urine Occasional #/hpf (0-3)
[2023-08-08 08:14] LABS: Bacteria,Urine Trace /lpf; Squamous Epithelial Cell,Urine Occasional #/hpf (0-5)
--- NOTE | 2023-08-08 08:37 | PC.NURSE ---
Dr. Benitez at [facility] for pt eval
[2023-08-08] MEDS: CEFTRIAXONE SODIUM 1 GM in 0.9 % SODIUM CHLORIDE 50 ML IV (09:17)
[2023-08-08] MEDS: POTASSIUM CHLORIDE 20MEQ TAB 60 MEQ PO (09:17)
--- NOTE | 2023-08-08 09:41 | PC.NURSE ---
FSBS: 111
[2023-08-08 09:42] VITALS: BP 157/67; PULSE 76; RESP 20; O2SAT 98
[2023-08-08 10:44] VITALS: BP 157/67; PULSE 76; RESP 20; TEMP 36.7; O2SAT 98
== END 2023-08-08 10:44 | disposition home or self-care (01) ==
PROVIDERS: Emergency Provider Emergency Medicine
DX: E11.649 Type 2 diabetes mellitus with hypoglycemia without coma (principal)
CPT/HCPCS: 71045; 80053; 81001; 85007; 85025; 93005; J0696

== ENCOUNTER 2023-08-08 17:33 | Emergency (ER) | payer MEDICARE, SELFPAY ==
[2023-08-08 17:33] VITALS: BP 147/53; PULSE 65; RESP 19; TEMP 36.9; O2SAT 95; BMI 34.4
[2023-08-08 18:24] VITALS: BP 164/66; PULSE 63; O2SAT 97
[2023-08-08 18:29] LABS: Basophils % 0.2 % (0.1-2.0); Eosinophils # 0.1 K/mm3 (0.0-0.4); Eosinophils % 1.6 % (0.1-12.0); Hematocrit 37.2 % (42.0-52.0); Hemoglobin 11.9 g/dL (14.1-18.0); Lymphocytes # 0.6 K/mm3 (0.7-4.5); Lymphocytes % 9.1 % (10-50); Mean Corpuscular HGB Conc 31.9 g/dL (31.8-35.4); Mean Corpuscular Hemoglobin 26.2 pg (27.0-31.2); Mean Corpuscular Volume 82.1 fl (80-94); Mean Platelet Volume 7.8 fl (7.4-10.4); Monocytes # 0.3 K/mm3 (0.1-1.0); Monocytes % 4.2 % (1.7-9.3); Neutrophils # 5.7 K/mm3 (1.8-7.8); Neutrophils % 84.8 % (37.0-80.0); Platelet Count 210 K/mm3 (142-424); Red Blood Count 4.54 M/mm3 (4.60-6.20); Red Cell Distribution Width 17.8 % (11.5-17.5); White Blood Count 6.7 K/mm3 (4.8-10.8)
[2023-08-08 18:36] LABS: Alanine Aminotransferase 26 U/L (12-78); Albumin Level 3.5 g/dl (3.5-5.0); Albumin/Globulin Ratio 1.3 (1.1-1.8); Alkaline Phosphatase 91 U/L (38-126); Anion Gap 7.7 mEq/L (5-15); Aspartate Amino Transferase 38 U/L (17-59); Bilirubin,Total 0.3 mg/dl (0.2-1.3); Blood Urea Nitrogen 29 mg/dl (9-20); Calcium 8.3 mg/dl (8.4-10.2); Carbon Dioxide 29 mmol/L (22.0-30.0); Chloride 107 mmol/L (98-107); Creatinine Clearance Estimated 48 mL/min (50-200); Estimated Glomerular Filt Rate 39 ml/min (>60); GFR (African American) 47 ML/MIN (>60); Globulin 2.8 g/dL (1.3-3.2); Glucose 112 mg/dl (74-100); Potassium 3.7 mmoL/L (3.5-5.1); Sodium 140 mmol/L (136-145); Total Protein,Serum 6.3 g/dl (6.3-8.2)
--- NOTE | 2023-08-08 18:38 | ED_ITS ---
Discharge Plan Disposition Patient Disposition: Home, Self-Care Prescriptions Prescriptions: No Action oxybutynin chloride 10 mg tablet extended release 24hr 10 mg PO DAILY insulin regular hum U-500 conc 500 unit/mL (3 mL) insulin pen 120 unit SQ BIDWMEAL 30 Days Qty: 14.4 10RF insulin aspart U-100 [Novolog FlexPen U-100 Insulin] 100 unit/mL (3 mL) insulin pen 20 unit SQ TID Qty: 15 10RF Rx Instructions: take 20 units if bloodsugar is over 400 10 units if bloodsugar is over 300 levofloxacin 250 mg tablet 250 mg PO DAILY 10 Days Qty: 10 0RF albuterol sulfate 90 mcg/actuation HFA aerosol inhaler 2 inh inhalation Q6H PRN (Reason: shortness of breath or wheezing) 90 Days Qty: 8.5 3RF clopidogrel [Plavix] 75 mg tablet 75 mg PO DAILY Qty: 90 3RF pantoprazole 40 mg tablet,delayed release (DR/EC) 40 mg PO DAILY Qty: 90 0RF Rx Instructions: TAKE 1 TABLET EVERY DAY Stiolto Respimat 2.5-2.5 mcg/actuation mist 2 puff inhalation DAILY Qty: 4 0RF gemfibrozil 600 mg tablet See Rx Instructions .ROUTE .COMPLEX Qty: 180 0RF Dose Instruction: TAKE 1 TABLET TWICE DAILY FOR CHOLESTEROL Rx Instructions: TAKE 1 TABLET TWICE DAILY FOR CHOLESTEROL spironolactone 25 mg tablet See Rx Instructions .ROUTE .COMPLEX Qty: 90 0RF Dose Instruction: TAKE 1 TABLET EVERY DAY Rx Instructions: TAKE 1 TABLET EVERY DAY torsemide 10 mg tablet See Rx Instructions .ROUTE .COMPLEX Qty: 180 1RF Dose Instruction: TAKE 3 TABLETS BY MOUTH 2 TIMES A DAY FOR DIURETIC Rx Instructions: TAKE 3 TABLETS BY MOUTH 2 TIMES A DAY FOR DIURETIC gabapentin 300 mg capsule 300 mg PO BID Qty: 60 5RF (DME) pen needle, diabetic [BD Jayne 2nd Gen Pen Needle] 32 gauge x 5/32 needle See Rx Instructions .ROUTE .COMPLEX Qty: 100 12RF Dose Instruction: USE WITH INSULIN INJECTIONS Rx Instructions: USE WITH INSULIN INJECTIONS ferrous gluconate 324 mg (38 mg iron) tablet See Rx Instructions .ROUTE .COMPLEX Qty: 90 0RF Dose Instruction: TAKE ONE TABLET BY MOUTH ONCE A DAY FOR SUPPLEMENT Rx Instructions: TAKE ONE TABLET BY MOUTH ONCE A DAY FOR SUPPLEMENT rosuvastatin 40 mg tablet See Rx Instructions .ROUTE .COMPLEX Qty: 30 0RF Dose Instruction: TAKE ONE TABLET BY MOUTH ONCE A DAY Rx Instructions: TAKE ONE TABLET BY MOUTH ONCE A DAY ipratropium-albuterol 0.5 mg-3 mg(2.5 mg base)/3 mL solution for nebulization 3 ml INHALATION QID PRN (Reason: shortness of breath or wheezing) 90 Days Qty: 270 3RF polyethylene glycol 3350 238 GM powder 17 g PO BIDP PRN (Reason: Constipation) azithromycin 250 mg tablet 250 mg PO DAILY 4 Days Qty: 4 0RF Rx Instructions: start on day 2 of therapy (day after ED visit) albuterol sulfate 90 mcg/actuation HFA aerosol inhaler 4 inh inhalation Q4H PRN (Reason: shortness of breath or wheezing) Qty: 8.5 0RF Rx Instructions: 4 puffs every 4 hours for 48 hours then as needed for shortness of breath or wheezing following cefdinir 300 mg capsule 300 mg PO BID 7 Days Qty: 14 0RF cefdinir 300 mg capsule 300 mg PO BID 5 Days Qty: 10 0RF Referrals Follow up/Referrals: Provider,Referral, MD [Referring] - See instructions Activity Restrictions/Add. Instructions Additional Instructions/Restrictions: Please follow-up with your primary care provider. Please return to the emergency department if you develop any new or worsening symptoms or become concerned for your health. Clinical Impressions Clinical Impression: Hypoglycemia Instructions Patient Instructions: DI for Hyperglycemia -- Adult Discharge ED Provider: Esau Vance Adult HPI General Chief complaint: Hyper/Hypoglycemia Stated complaint: Hypoglycemic Time Seen by Provider: 08/08/23 18:29 Mode of Arrival: EMS Source of Information: Patient and EMS Limitations: No Limitations Description of Symptoms (Recalled from ER Triage Doc. by RN): pt brought to ED via ems for low glucose readings. pt was discharged from ED earlier this am. pt states that when he went home, he took his medicine and laid down to take a nap, and awoke to EMS. per EMS report pt took 170 units of insulin instead of his dose of 70 units. History of Present Illness HPI narrative: 83-year-old male, history of COPD, coronary artery disease, insulin-dependent diabetes, obesity, chronic kidney disease presents with hypoglycemia. Patient was seen earlier today for hypoglycemia, was observed for period of time and was discharged. Patient went home and accidentally took significantly more of his insulin that he was supposed to. He took 170 units instead of 70 units. He uses U500 and normally takes 140 TID, but was planning to take half the dose and monitor his sugar at home. Patient became hypoglycemic to 30 shortly after taking the insulin. he returns with ems. On arrival patient is normoglycemic and generally well appearing, has no acute complaints. He reports he is being treated for COPD exacerbation but reports his respiratory symptoms are improved. Related Data Home Medications Medication Instructions Recorded Confirmed polyethylene glycol 3350 17 17 g PO BIDP PRN Constipation 01/04/22 06/20/23 gram/dose oral powder oxybutynin chloride 10 mg 10 mg PO DAILY 11/05/22 06/20/23 tablet,extended release 24 hr Previous Rx's Medication Instructions Recorded albuterol sulfate 90 mcg/actuation 2 inh inhalation Q6H PRN shortness 03/31/22 aerosol inhaler of breath or wheezing 90 days #8.5 grams clopidogrel 75 mg tablet (Plavix) 75 mg PO DAILY #90 tabs 10/28/22 insulin aspart U-100 100 unit/mL 20 unit (0.2 mL) SQ TID #15 mL 11/05/22 (3 mL) subcutaneous pen (Novolog FlexPen U-100 Insulin aspart) insulin regular hum U-500 conc 500 120 unit (0.24 mL) SQ BIDWMEAL 11/05/22 unit/mL(3 mL) subcut pen Diabetes 30 days #14.4 mL pantoprazole 40 mg tablet,delayed 40 mg PO DAILY GERD #90 tabs 12/14/22 release tiotropium 2.5 mcg-olodaterol 2.5 2 puff inhalation DAILY Breathing 12/14/22 mcg/actuation mist for inhalation problems #4 grams (Stiolto Respimat) levofloxacin 250 mg tablet 250 mg PO DAILY 10 days #10 tabs 02/24/23 gemfibrozil 600 mg tablet See Rx Instructions .Route 04/06/23 .COMPLEX #180 tabs spironolactone 25 mg tablet See Rx Instructions .Route 04/18/23 .COMPLEX #90 tabs torsemide 10 mg tablet See Rx Instructions .Route 04/22/23 .COMPLEX #180 tabs gabapentin 300 mg capsule 300 mg PO BID Pain #60 caps 05/18/23 pen needle, diabetic 32 gauge x #100 ea 06/01/23 (BD Jayne 2nd Gen Pen Needle) ferrous gluconate 324 mg (38 mg See Rx Instructions .Route 06/16/23 iron) tablet .COMPLEX #90 tabs rosuvastatin 40 mg tablet See Rx Instructions .Route 07/20/23 .COMPLEX #30 tabs albuterol sulfate 90 mcg/actuation 4 inh inhalation Q4H PRN shortness 08/02/23 aerosol inhaler of breath or wheezing #8.5 grams azithromycin 250 mg tablet 250 mg PO DAILY 4 days #4 tabs 08/02/23 cefdinir 300 mg capsule 300 mg PO BID 7 days #14 caps 08/02/23 cefdinir 300 mg capsule 300 mg PO BID 5 days #10 caps 08/08/23 ipratropium 0.5 mg-albuterol 3 mg 3 ml inhalation QID PRN shortness 08/08/23 (2.5 mg base)/3 mL nebulization of breath or wheezing 90 days #270 soln mL Allergies Allergy/AdvReac Type Severity Reaction Status Date / Time oxycodone Allergy Intermediate I-RASH Verified 06/20/23 15:01 Sulfa (Sulfonamide Allergy Unknown Unknown Verified 06/20/23 15:01 Antibiotics) allergy reaction aspirin AdvReac Intermediate Other Verified 06/20/23 15:01 [facility] Disclaimer: The information contained in this section may have been updated after the patient was seen, as this information can be updated by other users. Medical History Abnormal EKG Atypical angina JUAN FRANCISCO (cerebral atherosclerosis) Chronic hypoxemic respiratory failure Claudication COPD (chronic obstructive pulmonary disease) Diabetes mellitus Dyspnea on exertion Edema HHD (hypertensive heart disease) Lung nodule Multiple pulmonary nodules Paroxysmal atrial fibrillation Pre-op evaluation Pulmonary emphysema Sleep apnea Stopped smoking with greater than 30 pack year history Surgical History History of heart artery stent History of prostate surgery Family History Other Anemia Coronary artery disease Diabetes Heart attack Hyperlipidemia Hypertension Stroke Social History Smoking Status: Former smoker tobacco type: cigarettes packs per day: 2 second hand exposure: No alcohol intake: never substance use type: denies use current occupational status: retired Travel in the last 8 weeks: None household members: spouse housing: house current occupational exposures/hazards: No caffeine: Yes ROS Obtained: Yes All systems reviewed & no additional complaints except as documented Physical Exam General General appearance: alert, in no apparent distress and obese Head Head exam: atraumatic and normocephalic Eye Eye exam: Present normal appearance, PERRL and EOMI ENT ENT exam: Present normal oropharynx and normal external ear exam Neck Neck exam: Present normal inspection and full ROM Chest Chest inspection: Present normal inspection and symmetric chest wall rise; Absent tenderness Respiratory Respiratory exam: Present wheezes; Absent respiratory distress Cardiovascular Cardiovascular exam: Present regular rate and normal rhythm Abdominal Exam Abdominal exam: Present soft; Absent distention, tenderness or guarding Extremities Exam Extremities exam: Present normal inspection and edema (Minimal); Absent joint swelling Back Exam Back exam: Present normal inspection; Absent tenderness Neurological Exam Neurological exam: Present alert and oriented X3; Absent motor sensory deficit Psychiatric Psychiatric exam: Present normal affect and normal mood Skin Skin exam: Present warm, dry and normal color Lymphatic Lymphatic Findings: no adenopathy Medical Decision Making Medical Records Medical records reviewed: Yes I reviewed the patient's medical records. Bill Inquiry Pt receiving controlled substance: No Bill was queried for this patient: No Vital Signs: 08/08/23 17:33 08/08/23 18:24 08/08/23 22:27 Temperature 98.4 F 98.5 F Temperature Source Oral Oral Pulse Rate 63 76 Pulse Rate [Left Radial] 65 Respiratory Rate 19 20 Blood Pressure 164/66 H 176/82 H Blood Pressure [Right Arm] 147/53 H Blood Pressure Mean [Right Arm] 84 Blood Pressure Source Automatic Cuff Blood Pressure Position Sitting 02 Sat by Pulse Oximetry 95 97 Oxygen Delivery Method Room Air Nasal Cannula Room Air Oxygen Flow Rate (LPM) 2 Lab Data Lab results reviewed: Yes I reviewed the patient's lab results. Lab Results 08/08/23 18:15: WBC 6.7, RBC 4.54 L, Hgb 11.9 L, Hct 37.2 L, MCV 82.1, MCH 26.2 L, MCHC 31.9, RDW 17.8 H, Plt Count 210, MPV 7.8, Neut % (Auto) 84.8 H, Lymph % (Auto) 9.1 L, Wilkes % (Auto) 4.2, Eos % (Auto) 1.6, Baso % (Auto) 0.2, Neut # (Auto) 5.7, Lymph # (Auto) 0.6 L, Wilkes # (Auto) 0.3, Eos # (Auto) 0.1, Baso # (Auto) 0.0, Sodium 140, Potassium 3.7, Chloride 107, Carbon Dioxide 29, Anion Gap 7.7, BUN 29 H, Creatinine 1.70 H, Estimated Creat Clear 48, Estimated GFR 39 L, Est GFR ( Amer) 47 L, Glucose 112 H, Calcium 8.3 L, Total Bilirubin 0.3, AST 38, ALT 26, Alkaline Phosphatase 91, Total Protein 6.3, Albumin 3.5, Globulin 2.8, Albumin/Globulin Ratio 1.3 08/08/23 18:20: VBG pH 7.35, VBG pCO2 41.6, VBG pO2 142.1 H, VBG HCO3 22.6 L, VBG Total CO2 23.8, VBG O2 Saturation 98.8 H, VBG Base Excess -3.0 L 08/08/23 18:15 08/08/23 18:15 Orders (Tests/Meds): ORDERS Category Date Time Status Complete Blood Count Auto Diff Stat Lab 08/08/23 18:15 Completed Comprehensive Metabolic Panel Stat Lab 08/08/23 18:15 Completed VBG [Venous Blood Gas] Stat RT 08/08/23 18:20 Completed Medical Decision Narrative: 83-year-old male, presentation complicated by history of COPD, CKD, insulin- dependent diabetes presents with hypoglycemia (fingerstick 30) after acc identally taking too much insulin at home. Patient was seen earlier today for similar symptoms.. History was obtained via conversation with patient,. On arrival, patient is [afebrile, hemodynamically stable, satting appropriately, alert, oriented x4, GCS 15], moving all extremities spontaneously. Full physical exam performed and significant for no significant abnormalities from baseline. Patient's ED stay from earlier today was reviewed. Aside from recent COPD exacerbation, no other obvious recent changes. Given known insulin use and subsequent hypoglycemia, this is the most likely underlying etiology of patient's hypoglycemia. We will observe in ED to assess for recurrent hypoglycemia and to avoid potentially unnecessary admission. Repeat labs ordered. Patient was placed in observation status at 1820. Multiple fingersticks were given during patient's ED stay. All were greater t prasad 100. Repeat labs are interpreted by me and unchanged from prior. Patient was reassessed and observation status was discontinued at 2200. Total time in observation of 3 hours and 40 minutes. Extensive discussion had with patient regarding his presentation. He was given instructions to follow-up with his PCP as soon as possible. He will have family stay with him tonight and will check his sugar overnight. Patient reports that he would prefer to be discharged rather than continue to be observed in the hospital at this time. Given he has been normoglycemic for 4 hours and has help at home, I think this is a reasonable plan. Patient discharged in stable condition. Procedures Risk/Benefits of Procedure(s) Were Explained: Yes Critical Care Critical Care Time Critical Care Time: No
[2023-08-08 18:52] LABS: VBG HCO3 22.6 mmol/L (23-30); VBG Oxygen Saturation 98.8 % (50-70); VBG PCO2 41.6 mmol/L (35-51); VBG PH 7.35 mmol/L (7.31-7.41); VBG PO2 142.1 mmol/L (28-40); VBG Total CO2 23.8 mmol/L (23-27)
--- NOTE | 2023-08-08 20:57 | PC.NURSE ---
family @ bedside, call light within reach
[2023-08-08 22:27] VITALS: BP 176/82; PULSE 76; RESP 20; TEMP 36.9; O2SAT 96
== END 2023-08-08 22:28 | disposition home or self-care (01) ==
PROVIDERS: Emergency Provider Emergency Medicine; PCP Family Medicine
DX: E11.649 Type 2 diabetes mellitus with hypoglycemia without coma (principal); J44.9 Chronic obstructive pulmonary disease, unspecified; I25.10 Atherosclerotic heart disease of native coronary artery without angina pectoris; I67.2 Cerebral atherosclerosis; I11.9 Hypertensive heart disease without heart failure; I48.0 Paroxysmal atrial fibrillation; Z87.891 Personal history of nicotine dependence
CPT/HCPCS: 71045; 80053; 81001; 82803; 85007; 85025; 93005; 96365; 99285; J0696

== ENCOUNTER 2023-09-05 22:11 | Outpatient (CLI) | payer MEDICARE, SELFPAY ==
[2023-09-05 20:25] LABS: Basophils # 0.1 K/mm3 (0-0.2); Basophils % 0.6 % (0.1-2.0); Eosinophils # 0.2 K/mm3 (0.0-0.4); Eosinophils % 2.6 % (0.1-12.0); Hematocrit 36.1 % (42.0-52.0); Hemoglobin 11.8 g/dL (14.1-18.0); Lymphocytes % 13.3 % (10-50); Mean Corpuscular HGB Conc 32.7 g/dL (31.8-35.4); Mean Corpuscular Hemoglobin 26.9 pg (27.0-31.2); Mean Corpuscular Volume 82.2 fl (80-94); Mean Platelet Volume 8.4 fl (7.4-10.4); Monocytes # 0.3 K/mm3 (0.1-1.0); Monocytes % 4.5 % (1.7-9.3); Platelet Count 237 K/mm3 (142-424); Red Cell Distribution Width 17.6 % (11.5-17.5); White Blood Count 7.6 K/mm3 (4.8-10.8)
[2023-09-05 20:34] LABS: Alanine Aminotransferase 25 U/L (12-78); Albumin Level 4.1 g/dl (3.5-5.0); Albumin/Globulin Ratio 1.6 (1.1-1.8); Alkaline Phosphatase 105 U/L (38-126); Anion Gap 13.9 mEq/L (5-15); Aspartate Amino Transferase 31 U/L (17-59); Bilirubin,Total 0.4 mg/dl (0.2-1.3); Blood Urea Nitrogen 25 mg/dl (9-20); Calcium 9.7 mg/dl (8.4-10.2); Carbon Dioxide 28 mmol/L (22.0-30.0); Chloride 102 mmol/L (98-107); Chol/HDL Ratio 5.5 (1-3.5); Cholesterol 180 mg/dl (140-200); Estimated Glomerular Filt Rate 49 ml/min (>60); GFR (African American) 59 ML/MIN (>60); Globulin 2.5 g/dL (1.3-3.2); Glucose 122 mg/dl (74-100); HDL Cholesterol 33 mg/dl (40-60); Potassium 3.9 mmoL/L (3.5-5.1); Sodium 140 mmol/L (136-145); Total Protein,Serum 6.6 g/dl (6.3-8.2); Triglycerides 294 mg/dl (30-150); VLDL Cholesterol 59 mg/dL (0-40)
[2023-09-05 20:47] LABS: Direct LDL Cholesterol 95.73 mg/dL (100-129)
[2023-09-05 21:05] LABS: Thyroid Stimulating Hormone 1.77 uIU/mL (0.465-4.68)
== END 2023-09-05 23:59 ==
LOC: LAB.DROPOF 22:11
PROVIDERS: PCP Family Medicine; Visit Provider Family Medicine
DX: E16.2 Hypoglycemia, unspecified (principal); E07.9 Disorder of thyroid, unspecified; E78.5 Hyperlipidemia, unspecified
CPT/HCPCS: 80053; 80061; 84443; 85025

== ENCOUNTER 2023-11-21 18:00 | Outpatient (CLI) | payer MEDICARE, SELFPAY ==
[2023-11-21 18:53] LABS: Basophils % 0.4 % (0.1-2.0); Eosinophils # 0.3 K/mm3 (0.0-0.4); Eosinophils % 2.9 % (0.1-12.0); Hematocrit 39.8 % (42.0-52.0); Hemoglobin 12.5 g/dL (14.1-18.0); Lymphocytes # 1.3 K/mm3 (0.7-4.5); Lymphocytes % 15.2 % (10-50); Mean Corpuscular HGB Conc 31.4 g/dL (31.8-35.4); Mean Corpuscular Volume 85.8 fl (80-94); Mean Platelet Volume 8.4 fl (7.4-10.4); Monocytes # 0.4 K/mm3 (0.1-1.0); Monocytes % 4.4 % (1.7-9.3); Neutrophils # 6.7 K/mm3 (1.8-7.8); Platelet Count 217 K/mm3 (142-424); Red Blood Count 4.64 M/mm3 (4.60-6.20); Red Cell Distribution Width 17.4 % (11.5-17.5); White Blood Count 8.7 K/mm3 (4.8-10.8)
[2023-11-21 19:42] LABS: Hemoglobin A1C 9.8 % (4.0-6.0)
[2023-11-21 19:55] LABS: Chloride 103 mmol/L (98-107); Potassium 4.5 mmoL/L (3.5-5.1); Sodium 138 mmol/L (136-145)
[2023-11-21 19:58] LABS: Alanine Aminotransferase 25 U/L (12-78); Albumin Level 3.9 g/dl (3.5-5.0); Albumin/Globulin Ratio 1.6 (1.1-1.8); Alkaline Phosphatase 115 U/L (38-126); Anion Gap 10.5 mEq/L (5-15); Aspartate Amino Transferase 41 U/L (17-59); Bilirubin,Total 0.8 mg/dl (0.2-1.3); Blood Urea Nitrogen 24 mg/dl (9-20); Calcium 9.2 mg/dl (8.4-10.2); Carbon Dioxide 29 mmol/L (22.0-30.0); Estimated Glomerular Filt Rate 49 ml/min (>60); GFR (African American) 59 ML/MIN (>60); Globulin 2.5 g/dL (1.3-3.2); Glucose 260 mg/dl (74-100); Total Protein,Serum 6.4 g/dl (6.3-8.2)
== END 2023-11-21 23:59 | disposition home or self-care (01) ==
LOC: LAB.DROPOF 11-22 10:26
PROVIDERS: PCP Family Medicine; Visit Provider Family Medicine
DX: E11.9 Type 2 diabetes mellitus without complications (principal); N17.9 Acute kidney failure, unspecified; N18.9 Chronic kidney disease, unspecified; Z79.899 Other long term (current) drug therapy
CPT/HCPCS: 80053; 83036; 85025

== ENCOUNTER 2024-01-11 14:49 | Outpatient (POV) | payer MEDICARE, SELFPAY ==
--- NOTE | 2024-01-11 15:50 | EXP.PAIN.SOA ---
[facility] Pain Management SOAP Note Subjective:: Patient is a pleasant 83-year-old male who presents today for follow-up. Today he rates his pain an 8 out of 10. Patient denies any new trauma or injury however he feels like his overall pain has worsened and changed. Patient does state that he has having worse pain throughout his low back that does radiate down his right leg. He states he has a lot of soreness and stiffness that he feels worse before he even gets up out of bed. Patient does state the pain is interfering with his ability to perform activities of daily living such as cooking and cleaning. Patient has previously had a kyphoplasty due to compression fracture of T12. Patient does state that he questions if something has changed. Patient does have significant history of COPD, hypertension, cardiac stents, diabetes and chronic oxygen requirement. He is on Plavix daily. He is managed with gabapentin from his PCP. His Bill has been reviewed and is appropriate. Review of Systems: General: No recent weight changes, no fever, no sleep disturbances Respiratory: No cough, no shortness of air, no recurring pulmonary infections Cardiovascular/peripheral vascular: No chest pain, no palpitations, no edema, no shortness of breath Gastrointestinal: No new onset incontinence, normal bowel movements reported Genitourinary: No new onset incontinence Musculoskeletal: Low back pain, right leg pain Psychiatric: [Normal mood/affect] Neurological: [Denies weakness in extremities], [denies balance issues] Objective:: Physical Exam: General: Alert and oriented x3, no acute distress, pleasant and cooperative Lungs: Respirations even and unlabored, symmetrical chest expansion Eyes: PERRL Musculoskeletal: Flexion and extension of lumbar [spine] somewhat guarded secondary to pain, [antalgic gait noted] Neurological: Speech clear, no gross sensory deficit Assessment:: 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 I have discussed with patient due to his history of compression fracture that we do want to rule out this as a possibility. Patient is agreeable to this plan of care. Patient will return to clinic in 1 month for reevaluation of symptoms and plan of care. Patient has been instructed to contact the clinic with any concerns before the next appointment. Dr. Warren has reviewed this note and agrees with this plan of care. This note was dictated using voice recognition software and make contain errors or omissions. [facility] Disclaimer: The information contained in this section may have been updated after the patient was seen, as this information can be updated by other users. Medical History Multiple pulmonary nodules Chronic hypoxemic respiratory failure COPD (chronic obstructive pulmonary disease) Pulmonary emphysema Stopped smoking with greater than 30 pack year history Lung nodule Dyspnea on exertion Sleep apnea Diabetes mellitus Abnormal EKG Atypical angina JUAN FRANCISCO (cerebral atherosclerosis) Edema Pre-op evaluation Claudication Paroxysmal atrial fibrillation HHD (hypertensive heart disease) Surgical History History of prostate surgery History of heart artery stent Family History Other Anemia Coronary artery disease Diabetes Heart attack Hyperlipidemia Hypertension Stroke Social History Smoking Status: Former smoker tobacco type: cigarettes packs per day: 2 second hand exposure: No alcohol intake: never substance use type: denies use current occupational status: retired Travel in the last 8 weeks: None household members: spouse housing: house current occupational exposures/hazards: No caffeine: Yes
[2024-01-11 16:00] VITALS: BP 177/47; PULSE 68; RESP 18; O2SAT 92; BMI 35.2
--- NOTE | 2024-01-11 16:09 | XR_ITS ---
FINAL REPORT CLINICAL HISTORY: RT LEG PAIN COMPARISON: None FINDINGS: 5 views of the lumbar spine were obtained. There is a moderate compression fracture at the T12 level with evidence of a prior kyphoplasty at that level. There is no evidence of acute fracture or dislocation. The vertebral alignment is normal. Mild and moderate degenerative changes present. Facet arthropathy is present. There are vascular calcifications noted as well as a right iliac stent. No paraspinous soft tissue abnormalities identified. IMPRESSION: No acute bony abnormality. Moderate compression fracture at the T12 level with evidence of a prior kyphoplasty. Mild and moderate degenerative change with facet arthropathy. Reviewed, Interpreted and Dictated by Marco Antonio Griffiths III, MD Transcribed by Shey Weathers Authenticated and [facility]
== END 2024-01-11 23:59 | disposition home or self-care (01) ==
PROVIDERS: PCP Family Medicine; Visit Provider Nurse Practitioner Family
DX: M51.14 Intervertebral disc disorders with radiculopathy, thoracic region (principal); M51.16 Intervertebral disc disorders with radiculopathy, lumbar region
CPT/HCPCS: 72110; 99212; G0463

== ENCOUNTER 2024-01-16 16:03 | Outpatient (CLI) | payer MEDICARE, SELFPAY ==
--- NOTE | 2024-01-16 16:08 | MR_ITS ---
FINAL REPORT TECHNIQUE: Multiplanar MR without contrast was obtained of the lumbar spine CLINICAL HISTORY: LBP AND RIGHT LEG PAIN. history prostate cancer COMPARISON: None FINDINGS: There is moderate chronic compression fracture of T12 with associated kyphoplasty changes. There is retropulsion of bone up to 7 mm associated with the fracture. T11-12: Mild annular disc bulge. Retropulsion of bone resulting in mild canal stenosis. T12-L1: Unremarkable. L1-2: Unremarkable L2-3: Minimal annular disc bulge. L3-4: Mild annular disc bulge and facet arthropathy. Mild central canal stenosis. Mild bilateral neuroforaminal narrowing. L4-5: Moderate annular disc bulge and facet arthropathy. Moderate central canal stenosis, lateral recess stenosis, and neuroforaminal narrowing. L5-S1: Mild annular disc bulge and facet arthropathy. Mild bilateral neuroforaminal narrowing. IMPRESSION: Canal stenosis with neuroforaminal narrowing most prominent at L4-5. Chronic compression fracture with post kyphoplasty changes at T12 with chronic retropulsion of bone. Reviewed, Interpreted and Dictated by Paola Jin MD Transcribed by Merry Taylor Authenticated and [facility]
== END 2024-01-16 23:59 | disposition home or self-care (01) ==
LOC: RAD 16:04
PROVIDERS: PCP Family Medicine; Visit Provider Nurse Practitioner Family
DX: M54.50 Low back pain, unspecified (principal); M79.604 Pain in right leg
CPT/HCPCS: 72148

== ENCOUNTER 2024-02-09 13:14 | Outpatient (POV) | payer MEDICARE, SELFPAY ==
--- NOTE | 2024-02-09 13:41 | A.OFFVIS_ITS ---
[facility] Disclaimer: The information contained in this section may have been updated after the patient was seen, as this information can be updated by other users. Medical History Multiple pulmonary nodules Chronic hypoxemic respiratory failure COPD (chronic obstructive pulmonary disease) Pulmonary emphysema Stopped smoking with greater than 30 pack year history Lung nodule Dyspnea on exertion Sleep apnea Diabetes mellitus Abnormal EKG Atypical angina JUAN FRANCISCO (cerebral atherosclerosis) Edema Pre-op evaluation Claudication Paroxysmal atrial fibrillation HHD (hypertensive heart disease) Surgical History History of prostate surgery History of heart artery stent Family History Other Anemia Coronary artery disease Diabetes Heart attack Hyperlipidemia Hypertension Stroke Social History Smoking Status: Former smoker tobacco type: cigarettes packs per day: 2 second hand exposure: No alcohol intake: never substance use type: denies use current occupational status: retired Travel in the last 8 weeks: None household members: spouse housing: house current occupational exposures/hazards: No caffeine: Yes PM Subjective & Objective Subjective Subjective:: Patient is a pleasant 89-year-old male who presents today for follow-up of lumbar MRI. Today he rates his pain a 9 out of 10. Patient denies any new trauma or injury. He does state he continues to have low back pain that does radiate down into his lower extremities. He does describe this as an aching, throbbing sensation with numbness and tingling. He does state the pain interferes with his ability to perform activities of daily living such as cooking and cleaning. He does still state he has a lot of soreness and stiffness. Patient is interested in any help we may be able to provide. He is currently on Plavix. Patient does also have chronic health history involving COPD, hypertension, cardiac stents, diabetes and chronic oxygen requirement. Patient is prescribed gabapentin from his PCP. His Bill has been reviewed and is appropriate. Review of Systems: General: No recent weight changes, no fever, no sleep disturbances Respiratory: No cough, no shortness of air, no recurring pulmonary infections Cardiovascular/peripheral vascular: No chest pain, no palpitations, no edema, no shortness of breath Gastrointestinal: No new onset incontinence, normal bowel movements reported Genitourinary: No new onset incontinence Musculoskeletal: Low back pain, leg pain Psychiatric: [Normal mood/affect] Neurological: [Denies weakness in extremities], [denies balance issues] Pain at rest (0-10 scale): 9 Objective Objective:: Physical Exam: General: Alert and oriented x3, no acute distress, pleasant and cooperative Lungs: Respirations even and unlabored, symmetrical chest expansion Eyes: PERRL Musculoskeletal: Flexion and extension of lumbar [spine] somewhat guarded secondary to pain, [antalgic gait noted] point tenderness along lower lumbar spine Neurological: Speech clear, no gross sensory deficit FINDINGS: There is moderate chronic compression fracture of T12 with associated kyphoplasty changes. There is retropulsion of bone up to 7 mm associated with the fracture. T11-12: Mild annular disc bulge. Retropulsion of bone resulting in mild canal stenosis. T12-L1: Unremarkable. L1-2: Unremarkable L2-3: Minimal annular disc bulge. L3-4: Mild annular disc bulge and facet arthropathy. Mild central canal stenosis. Mild bilateral neuroforaminal narrowing. L4-5: Moderate annular disc bulge and facet arthropathy. Moderate central canal stenosis, lateral recess stenosis, and neuroforaminal narrowing. L5-S1: Mild annular disc bulge and facet arthropathy. Mild bilateral neuroforaminal narrowing. IMPRESSION: Canal stenosis with neuroforaminal narrowing most prominent at L4-5. Chronic compression fracture with post kyphoplasty changes at T12 with chronic retropulsion of bone. Reviewed, Interpreted and Dictated by Paola Jin MD Transcribed by Merry Taylor Authenticated and [facility] Has patient had previous pain injection?: No Conservative treatment options previously tried: Home exercise plan Length of treatment: Longer than 6 weeks and Prescription medications Length of treatment: Longer than 6 weeks Meds Home Medications and Allergies Home Medications Medication Instructions Recorded Confirmed Type albuterol sulfate 90 mcg/actuation 2 inh inhalation Q6H PRN shortness 03/31/22 01/11/24 Rx aerosol inhaler of breath or wheezing 90 days #8.5 grams clopidogrel 75 mg tablet (Plavix) 75 mg PO DAILY #90 tabs 10/28/22 01/11/24 Rx insulin regular hum U-500 conc 500 120 unit (0.24 mL) SQ BIDWMEAL 11/05/22 01/11/24 Rx unit/mL(3 mL) subcut pen Diabetes 30 days #14.4 mL oxybutynin chloride 10 mg 10 mg PO DAILY 11/05/22 01/11/24 History tablet,extended release 24 hr pen needle, diabetic 32 gauge x #100 ea 06/01/23 01/11/24 Rx 5/32 (BD Jayne 2nd Gen Pen Needle) torsemide 10 mg tablet See Rx Instructions .Route 09/01/23 01/11/24 Rx .COMPLEX #180 tabs gabapentin 300 mg capsule 300 mg PO BID Pain #60 caps 11/21/23 01/11/24 Rx ipratropium 0.5 mg-albuterol 3 mg 3 ml inhalation QID PRN shortness 11/21/23 01/11/24 Rx (2.5 mg base)/3 mL nebulization of breath or wheezing 90 days #270 soln mL tiotropium 2.5 mcg-olodaterol 2.5 2 puff inhalation DAILY Breathing 11/21/23 01/11/24 Rx mcg/actuation mist for inhalation problems #4 grams (Stiolto Respimat) tamsulosin 0.4 mg capsule 0.4 mg PO DAILY 11/22/23 01/11/24 History rosuvastatin 40 mg tablet See Rx Instructions .Route 12/19/23 01/11/24 Rx .COMPLEX #30 tabs gemfibrozil 600 mg tablet See Rx Instructions .Route 01/02/24 01/11/24 Rx .COMPLEX #180 tabs ferrous gluconate 324 mg (38 mg See Rx Instructions .Route 01/23/24 Rx iron) tablet .COMPLEX #30 tabs pantoprazole 40 mg tablet,delayed See Rx Instructions .Route 02/07/24 Rx release .COMPLEX #90 tabs New Prescriptions to Start Prescriptions: Allergies Allergy/AdvReac Type Severity Reaction Status Date / Time oxycodone Allergy Intermediate I-RASH Verified 11/21/23 14:28 Sulfa (Sulfonamide Allergy Unknown Unknown Verified 11/21/23 14:28 Antibiotics) allergy reaction aspirin AdvReac Intermediate Other Verified 11/21/23 14:28 Assessment and Plan *Assessment and plan (1) Degenerative disc disease, lumbar: Status: Acute Category: Medical Code(s): M51.36 - Other intervertebral disc degeneration, lumbar region (2) Compression fracture: Status: Acute Category: Medical (3) Lumbar radiculopathy: Status: Acute Category: Medical Code(s): M54.16 - Radiculopathy, lumbar region (4) Spinal stenosis, lumbar region with neurogenic claudication: Status: Acute Category: Medical Code(s): M48.062 - Spinal stenosis, lumbar region with neurogenic claudication Plan Patient is experiencing significant pain in his low back and legs with limited range of motion. I did review over the last lumbar MRI findings and did discuss with the patient that I do believe he would benefit from a lumbar epidural steroid injection. Risk and benefits were discussed with the patient and he wo uld like to proceed forward with this plan of care. Patient is currently on Plavix and will have to discontinue this medication prior to this injection. We will reach out to Dr. Aly's office or his primary care as he could not remember which provider writes for this to confirm he can stop this medication prior to this injection. Patient has tried and failed conservative treatment including oral medication, heat and ice, topicals, continued at home stretching exercise for longer than 6 weeks. Patient is not able to do current physical therapy due to his chronic comorbidities including cardiac history and COPD requiring oxygen supplementation. Patient will be scheduled for an LESI L4-L5 under fluoroscopy. Patient has been instructed to contact the clinic with any concerns before the next appointment. Dr. Warren has reviewed this note and agrees with this plan of care. This note was dictated using voice recognition software and make contain errors or omissions.
[2024-02-09 13:55] VITALS: BP 128/59; PULSE 83; RESP 18; O2SAT 92; BMI 35.2
== END 2024-02-09 23:59 | disposition home or self-care (01) ==
PROVIDERS: PCP Family Medicine; Visit Provider Nurse Practitioner Family
DX: M51.36 Other intervertebral disc degeneration, lumbar region (principal); M54.16 Radiculopathy, lumbar region; M48.062 Spinal stenosis, lumbar region with neurogenic claudication; G89.29 Other chronic pain
CPT/HCPCS: 99212; G0463

== ENCOUNTER 2024-02-28 10:09 | Day surgery (SDC) | payer MEDICARE, SELFPAY ==
[2024-02-28 10:43] VITALS: BP 166/82; PULSE 78; RESP 16; TEMP 36.4; O2SAT 94; BMI 35.2
--- NOTE | 2024-02-28 11:00 | EXP.PAIN.PRO ---
Procedure Date: 02/28/24 Time: 11:00 Anesthesiologist:: Jose Grover CRNA Complications:: None Pre-procedure Diagnosis:: Degenerative disc lumbar spine multilevels. Lumbar radiculopathy. Post-procedure Diagnosis:: Same. Indications for Procedure:: Patient is a pleasant 83-year-old male comes our clinic today for lumbar epidural steroid injection. Patient describes low back pain as constant, dull, aching. Patient also reports bilateral hip and leg radicular symptoms. He rates his pain 8/10. Procedure Details:: Procedure: Lumbar epidural steroid injection under fluoroscopy Informed consent was obtained and the risks and benefits of the procedure were explained to the patient. The patient was taken to the procedure room and noninvasive monitors placed, including noninvasive blood pressure cuff and pulse oximeter. The back was viewed using C-arm Fluoroscopy and prepped using Chloraprep as a cleansing solution and the L4-L5 interspace was palpated. Skin and subcutaneous tissues were anesthetized using lidocaine 1.5% and a 25-gauge needle. After this, an 18-gauge Touhy epidural needle was placed into the L4-L5 interspace and advanced using fluoroscopic guidance and loss of resistance to air until the epidural space was encountered. After confirmation of needle placement in the epidural space, with dye, a solution containing normal saline, 3 mL and Depo-Medrol 80 mg were incrementally injected into the lumbar epidural space. The patient tolerated the procedure well with no complications. The patient was observed in the Pain Clinic and then discharged home neurologically intact. Plan and Disposition:: Patient was discharged without incident.
[2024-02-28 11:08] VITALS: BP 121/79; PULSE 81; RESP 18; O2SAT 96
[2024-02-28] MEDS: methylPREDNISolone ACETATE 80MG/ML VIAL 80 MG (11:08)
[2024-02-28 11:10] VITALS: BP 121/79; PULSE 81; RESP 18; O2SAT 96
[2024-02-28 11:14] VITALS: BP 172/68; PULSE 80; RESP 18; O2SAT 95
== END 2024-02-28 11:16 | disposition home or self-care (01) ==
PROVIDERS: PCP Family Medicine; Visit Provider Nurse Anesthetist, Certified Registered
DX: M54.16 Radiculopathy, lumbar region (principal); M51.36 Other intervertebral disc degeneration, lumbar region
CPT/HCPCS: 62323; J1010

== ENCOUNTER 2024-03-21 11:25 | Outpatient (POV) | payer MEDICARE, SELFPAY ==
[2024-03-21 12:03] VITALS: BP 130/61; PULSE 81; RESP 18; O2SAT 93; BMI 35.2
--- NOTE | 2024-03-21 12:05 | A.OFFVIS_ITS ---
[facility] Disclaimer: The information contained in this section may have been updated after the patient was seen, as this information can be updated by other users. Medical History Multiple pulmonary nodules Chronic hypoxemic respiratory failure COPD (chronic obstructive pulmonary disease) Pulmonary emphysema Stopped smoking with greater than 30 pack year history Lung nodule Dyspnea on exertion Sleep apnea Diabetes mellitus Abnormal EKG Atypical angina JUAN FRANCISCO (cerebral atherosclerosis) Edema Pre-op evaluation Claudication Paroxysmal atrial fibrillation HHD (hypertensive heart disease) Surgical History History of prostate surgery History of heart artery stent Family History Other Anemia Coronary artery disease Diabetes Heart attack Hyperlipidemia Hypertension Stroke Social History Smoking Status: Former smoker tobacco type: cigarettes packs per day: 2 second hand exposure: No alcohol intake: never substance use type: denies use current occupational status: retired Travel in the last 8 weeks: None household members: spouse housing: house current occupational exposures/hazards: No caffeine: Yes PM Subjective & Objective Subjective Subjective:: Patient is a pleasant 84-year-old male who presents today for follow-up of lumbar epidural steroid injection of L4-L5. Today he rates his pain a 5 out of 10. Patient denies any new trauma or injury. He does state that he had 100% relief following this injection however he really felt like it only gave 2 full days of relief. He does state that he felt like most days since then have not been as severe except today is worse. He does state that most of his pain is more prominent in the morning when he gets up and starts going. He denies any new falls or injuries. He does state the pain interferes with his ability to perform activities of daily living such as cooking and cleaning. He is currently on Plavix. Patient does also have chronic health history involving COPD, hypertension, cardiac stents, diabetes and chronic oxygen requirement. Patient is prescribed gabapentin from his PCP. His Bill has been reviewed and is appropriate. Review of Systems: General: No recent weight changes, no fever, no sleep disturbances Respiratory: No cough, no shortness of air, no recurring pulmonary infections Cardiovascular/peripheral vascular: No chest pain, no palpitations, no edema, no shortness of breath Gastrointestinal: No new onset incontinence, normal bowel movements reported Genitourinary: No new onset incontinence Musculoskeletal: Low back pain, leg pain Psychiatric: [Normal mood/affect] Neurological: [Denies weakness in extremities], [denies balance issues] Pain at rest (0-10 scale): 5 Objective Objective:: Physical Exam: General: Alert and oriented x3, no acute distress, pleasant and cooperative Lungs: Respirations even and unlabored, symmetrical chest expansion Eyes: PERRL Musculoskeletal: Flexion and extension of lumbar [spine] somewhat guarded secondary to pain, [antalgic gait noted] Neurological: Speech clear, no gross sensory deficit Has patient had previous pain injection?: Yes Percent improvement in pain since last injection: 100% Conservative treatment options previously tried: Home exercise plan Length of treatment: Longer than 6 weeks Meds Home Medications and Allergies Home Medications ?Medication ?Instructions ?Recorded ?Confirmed ?Type albuterol sulfate 90 mcg/actuation 2 inh inhalation Q6H PRN shortness 03/31/22 02/28/24 Rx aerosol inhaler of breath or wheezing 90 days #8.5 grams clopidogrel 75 mg tablet (Plavix) 75 mg PO DAILY #90 tabs 10/28/22 02/28/24 Rx insulin regular hum U-500 conc 500 120 unit (0.24 mL) SQ BIDWMEAL 11/05/22 02/28/24 Rx unit/mL(3 mL) subcut pen Diabetes 30 days #14.4 mL oxybutynin chloride 10 mg 10 mg PO DAILY 11/05/22 02/28/24 History tablet,extended release 24 hr pen needle, diabetic 32 gauge x #100 ea 06/01/23 02/28/24 Rx / (BD Jayne 2nd Gen Pen Needle) torsemide 10 mg tablet See Rx Instructions .Route 09/01/23 02/28/24 Rx .COMPLEX #180 tabs gabapentin 300 mg capsule 300 mg PO BID Pain #60 caps 11/21/23 02/28/24 Rx ipratropium 0.5 mg-albuterol 3 mg 3 ml inhalation QID PRN shortness 11/21/23 02/28/24 Rx (2.5 mg base)/3 mL nebulization of breath or wheezing 90 days #270 soln mL tiotropium 2.5 mcg-olodaterol 2.5 2 puff inhalation DAILY Breathing 11/21/23 02/28/24 Rx mcg/actuation mist for inhalation problems #4 grams (Stiolto Respimat) tamsulosin 0.4 mg capsule 0.4 mg PO DAILY 11/22/23 02/28/24 History gemfibrozil 600 mg tablet See Rx Instructions .Route 01/02/24 02/28/24 Rx .COMPLEX #180 tabs pantoprazole 40 mg tablet,delayed See Rx Instructions .Route 02/07/24 02/28/24 Rx release .COMPLEX #90 tabs benzonatate 200 mg capsule 200 mg PO TID PRN cough #90 caps 02/17/24 02/28/24 Rx cefdinir 300 mg capsule 300 mg PO BID 10 days #20 caps 02/17/24 02/28/24 Rx miconazole nitrate 2 % topical 1 applic topical BID #85 grams 02/17/24 02/28/24 Rx powder (Lotrimin AF) rosuvastatin 40 mg tablet See Rx Instructions .Route 02/22/24 02/28/24 Rx .COMPLEX #30 tabs ferrous gluconate 324 mg (38 mg See Rx Instructions .Route 02/27/24 02/28/24 Rx iron) tablet .COMPLEX #30 tabs New Prescriptions to Start Prescriptions: Allergies Allergy/AdvReac Type Severity Reaction Status Date / Time oxycodone Allergy Intermediate I-RASH Verified 02/28/24 10:44 Sulfa (Sulfonamide Allergy Unknown Unknown Verified 02/28/24 10:44 Antibiotics) allergy reaction aspirin AdvReac Intermediate Other Verified 02/28/24 10:44 Assessment and Plan *Assessment and plan (1) Lumbar radiculopathy: Status: Acute Category: Medical Code(s): M54.16 - Radiculopathy, lumbar region Plan I did discuss with the patient that I will send in a 1 month supply of [place] 5 mg daily. Patient will return to clinic in 1 month for reevaluation of symptoms and plan of care. Risks and benefits of the medication have been explained in detail to the patient. The patient does understand the risk of dependence on the medication when given over a prolonged period. Patient has been advised of risks of oversedation with the prescribed medication. Narcan has been offered to the paitent in the event of oversedation. Patient has been advised that a family member should also be educated regarding administration of Narcan. The patient has been advised to consult with his/her primary care provider and pharmacist regarding drug-drug interaction of medications currently prescribed. Patient has been prescribed a controlled substance after being counseled on the medication, medication safety, and possible side effects. Opioid contract was reviewed and signed by the patient, and that they have agreed to all of the terms set forth by our compliance program. Patient has been instructed to contact the clinic with any concerns before the next appointment. Dr. Warren has reviewed this note and agrees with this plan of care. This note was dictated using voice recognition software and make contain errors or omissions.
== END 2024-03-21 23:59 | disposition home or self-care (01) ==
PROVIDERS: PCP Family Medicine; Visit Provider Nurse Practitioner Family
DX: M54.16 Radiculopathy, lumbar region (principal); Z73.89 Other problems related to life management difficulty; Z79.02 Long term (current) use of antithrombotics/antiplatelets; E11.9 Type 2 diabetes mellitus without complications; Z79.4 Long term (current) 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; Z87.891 Personal history of nicotine dependence; Z95.5 Presence of coronary angioplasty implant and graft
CPT/HCPCS: 99212; G0463

== ENCOUNTER 2024-03-31 01:58 | Inpatient (IN) | payer MEDICARE, SELFPAY ==
[2024-03-31] VITALS (12 sets, daily range): BP systolic 107–153; BP diastolic 57–110; PULSE 73–120; RESP 16–26; TEMP 36.5–37.8; O2SAT 92–96; BMI 42.5; BMI 32.2
--- NOTE | 2024-03-31 01:52 | ECG_ITS ---
APPROVED REPORT Exam: Resting ECG HR:119 bpm ECG Measurements Heart Rate 119 AXES QRSd 134 QRS 78 QT 316 T -90 QTc 387 Conclusion ATRIAL FIBRILLATION WITH RAPID VENTRICULAR RESPONSE INTRAVENTRICULAR CONDUCTION DELAY [130+ ms QRS DURATION] ABNORMAL ECG Electronically signed by : ANNMARIE ARAGON, 04/03/2024 18:21:52
--- NOTE | 2024-03-31 01:56 | ED_ITS ---
Discharge Plan Disposition Patient Disposition: Admitted Prescriptions Prescriptions: No Action oxybutynin chloride 10 mg tablet extended release 24hr 10 mg PO DAILY insulin regular hum U-500 conc 500 unit/mL (3 mL) insulin pen 120 unit SQ BIDWMEAL 30 Days Qty: 14.4 10RF albuterol sulfate 90 mcg/actuation HFA aerosol inhaler 2 inh inhalation Q6H PRN (Reason: shortness of breath or wheezing) 90 Days Qty: 8.5 3RF Stiolto Respimat 2.5-2.5 mcg/actuation mist 2 puff inhalation DAILY Qty: 4 12RF ipratropium-albuterol 0.5 mg-3 mg(2.5 mg base)/3 mL solution for nebulization 3 ml INHALATION QID PRN (Reason: shortness of breath or wheezing) 90 Days Qty: 270 3RF gabapentin 300 mg capsule 300 mg PO BID Qty: 60 5RF miconazole nitrate [Lotrimin AF] 2 % powder 1 applic topical BID Qty: 85 10RF Rx Instructions: apply to groin do not use other powder here benzonatate 200 mg capsule 200 mg PO TID PRN (Reason: cough) Qty: 90 0RF cefdinir 300 mg capsule 300 mg PO BID 10 Days Qty: 20 0RF fluconazole [Diflucan] 100 mg tablet 100 mg PO DAILY Qty: 10 0RF nystatin 100,000 unit/gram cream 1 applic topical TID Qty: 60 1RF clopidogrel [Plavix] 75 mg tablet 75 mg PO DAILY Qty: 90 3RF (DME) pen needle, diabetic [BD Jayne 2nd Gen Pen Needle] 32 gauge x 5/32 needle See Rx Instructions .ROUTE .COMPLEX Qty: 100 12RF Dose Instruction: USE WITH INSULIN INJECTIONS Rx Instructions: USE WITH INSULIN INJECTIONS torsemide 10 mg tablet See Rx Instructions .ROUTE .COMPLEX Qty: 180 3RF Dose Instruction: TAKE 3 TABLETS BY MOUTH 2 TIMES A DAY FOR DIURETIC Rx Instructions: TAKE 3 TABLETS BY MOUTH 2 TIMES A DAY FOR DIURETIC tamsulosin 0.4 mg capsule 0.4 mg PO DAILY gemfibrozil 600 mg tablet See Rx Instructions .ROUTE .COMPLEX Qty: 180 0RF Dose Instruction: TAKE 1 TABLET TWICE DAILY FOR CHOLESTEROL Rx Instructions: TAKE 1 TABLET TWICE DAILY FOR CHOLESTEROL pantoprazole 40 mg tablet,delayed release (DR/EC) See Rx Instructions .ROUTE .COMPLEX Qty: 90 0RF Dose Instruction: TAKE 1 TABLET EVERY DAY FOR GERD Rx Instructions: TAKE 1 TABLET EVERY DAY FOR GERD rosuvastatin 40 mg tablet See Rx Instructions .ROUTE .COMPLEX Qty: 30 1RF Dose Instruction: TAKE ONE TABLET BY MOUTH ONCE A DAY Rx Instructions: TAKE ONE TABLET BY MOUTH ONCE A DAY ferrous gluconate 324 mg (38 mg iron) tablet See Rx Instructions .ROUTE .COMPLEX Qty: 30 0RF Dose Instruction: TAKE ONE TABLET BY MOUTH ONCE A DAY FOR SUPPLEMENT Rx Instructions: TAKE ONE TABLET BY MOUTH ONCE A DAY FOR SUPPLEMENT hydrocodone-acetaminophen 5-325 mg tablet 1 tab PO DAILY Qty: 30 0RF Referrals Follow up/Referrals: Andres Valencia MD [Primary Care Provider] - See instructions Clinical Impressions Clinical Impression: Atrial fibrillation with rapid ventricular response, Acute non-ST elevation myocardial infarction (NSTEMI) Pneumonia Qualifiers: Laterality: bilateral Respiratory failure Qualifiers: Chronicity: acute on chronic Respiratory failure complication: hypoxia Q ualified Code(s): J96.21 - Acute and chronic respiratory failure with hypoxia Print Language Print Language: Ukrainian Discharge ED Provider: Esau Vance General Adult HPI General Chief complaint: Shortness of Breath/Dyspnea Stated complaint: SOA Time Seen by Provider: 03/31/24 02:00 History of Present Illness HPI narrative: 84-year-old male with history of insulin-dependent diabetes, paroxysmal A-fib, COPD on oxygen at baseline (unknown requirement) coronary artery disease status post CABG and stents, obesity presents for hypoglycemia, hypoxia. The initial EMS call went out for hypoglycemia with blood sugar in the 60s. On their arrival blood sugar was 112. They were more concerned about his hypoxia. He was satting 80% on their arrival. He improved to the high 80s on nasal cannula and got into the 90s on 4 L after a DuoNeb. Patient is a very poor historian and family never came to the hospital to provide additional history. Patient has frequent wet cough noted. Denies any chest pain abdominal pain. Reports that he is short of breath but not significantly worse than baseline. He denies any significant complaint at this time. Related Data Home Medications ?Medication ?Instructions ?Recorded ?Confirmed oxybutynin chloride 10 mg 10 mg PO DAILY 11/05/22 03/22/24 tablet,extended release 24 hr tamsulosin 0.4 mg capsule 0.4 mg PO DAILY 11/22/23 03/22/24 Previous Rx's ?Medication ?Instructions ?Recorded albuterol sulfate 90 mcg/actuation 2 inh inhalation Q6H PRN shortness 03/31/22 aerosol inhaler of breath or wheezing 90 days #8.5 grams clopidogrel 75 mg tablet (Plavix) 75 mg PO DAILY #90 tabs 10/28/22 insulin regular hum U-500 conc 500 120 unit (0.24 mL) SQ BIDWMEAL 11/05/22 unit/mL(3 mL) subcut pen Diabetes 30 days #14.4 mL pen needle, diabetic 32 gauge x #100 ea 06/01/23 (BD Jayne 2nd Gen Pen Needle) torsemide 10 mg tablet See Rx Instructions .Route 09/01/23 .COMPLEX #180 tabs gabapentin 300 mg capsule 300 mg PO BID Pain #60 caps 11/21/23 ipratropium 0.5 mg-albuterol 3 mg 3 ml inhalation QID PRN shortness 11/21/23 (2.5 mg base)/3 mL nebulization of breath or wheezing 90 days #270 soln mL tiotropium 2.5 mcg-olodaterol 2.5 2 puff inhalation DAILY Breathing 11/21/23 mcg/actuation mist for inhalation problems #4 grams (Stiolto Respimat) gemfibrozil 600 mg tablet See Rx Instructions .Route 01/02/24 .COMPLEX #180 tabs pantoprazole 40 mg tablet,delayed See Rx Instructions .Route 02/07/24 release .COMPLEX #90 tabs benzonatate 200 mg capsule 200 mg PO TID PRN cough #90 caps 02/17/24 cefdinir 300 mg capsule 300 mg PO BID 10 days #20 caps 02/17/24 miconazole nitrate 2 % topical 1 applic topical BID #85 grams 02/17/24 powder (Lotrimin AF) rosuvastatin 40 mg tablet See Rx Instructions .Route 02/22/24 .COMPLEX #30 tabs ferrous gluconate 324 mg (38 mg See Rx Instructions .Route 02/27/24 iron) tablet .COMPLEX #30 tabs hydrocodone 5 mg-acetaminophen 325 1 tab PO DAILY #30 tabs 03/21/24 mg tablet fluconazole 100 mg tablet 100 mg PO DAILY #10 tabs 03/22/24 (Diflucan) nystatin 100,000 unit/gram topical 1 applic topical TID #60 grams 03/22/24 cream Allergies Allergy/AdvReac Type Severity Reaction Status Date / Time oxycodone Allergy Intermediate I-RASH Verified 03/22/24 15:36 Sulfa (Sulfonamide Allergy Unknown Unknown Verified 03/22/24 15:36 Antibiotics) allergy reaction aspirin AdvReac Intermediate Other Verified 03/22/24 15:36 [facility] Disclaimer: The information contained in this section may have been updated after the patient was seen, as this information can be updated by other users. Medical History Multiple pulmonary nodules Chronic hypoxemic respiratory failure COPD (chronic obstructive pulmonary disease) Pulmonary emphysema Stopped smoking with greater than 30 pack year history Lung nodule Dyspnea on exertion Sleep apnea Diabetes mellitus Abnormal EKG Atypical angina JUAN FRANCISCO (cerebral atherosclerosis) Edema Pre-op evaluation Claudication Paroxysmal atrial fibrillation HHD (hypertensive heart disease) Surgical History History of prostate surgery History of heart artery stent Family History Other Anemia Coronary artery disease Diabetes Heart attack Hyperlipidemia Hypertension Stroke Social History Smoking Status: Former smoker tobacco type: cigarettes packs per day: 2 second hand exposure: No alcohol intake: never substance use type: denies use current occupational status: retired Travel in the last 8 weeks: None household members: spouse housing: house current occupational exposures/hazards: No caffeine: Yes ROS Obtained: Yes All systems reviewed & no additional complaints except as documented Physical Exam General General appearance: alert and in no apparent distress Head Head exam: atraumatic and normocephalic Eye Eye exam: Present normal appearance, PERRL and EOMI ENT ENT exam: Present normal oropharynx and normal external ear exam Neck Neck exam: Present normal inspection and full ROM Chest Chest inspection: Present normal inspection and symmetric chest wall rise; Absent tenderness Respiratory Respiratory exam: Present other (Rhonchi noted in the lower lung santiago, frequent wet cough noted, mildly increased work of breathing) Cardiovascular Cardiovascular exam: Present tachycardia and irregular rhythm Abdominal Exam Abdominal exam: Present soft and distention; Absent tenderness or guarding Extremities Exam Extremities exam: Present normal inspection; Absent edema (No lower extremity pitting edema) or joint swelling Back Exam Back exam: Present normal inspection; Absent tenderness Neurological Exam Neurological exam: Present alert and oriented X3; Absent motor sensory deficit Psychiatric Psychiatric exam: Present normal affect and normal mood Skin Skin exam: Present warm, dry and normal color Lymphatic Lymphatic Findings: no adenopathy Medical Decision Making Medical Records Medical records reviewed: Yes I reviewed the patient's medical records. Bill Inquiry Pt receiving controlled substance: No Bill was queried for this patient: No Vital Signs: 03/31/24 01:58 Temperature 98.2 F Temperature Source Oral Pulse Rate [Left] 120 H Respiratory Rate 22 Blood Pressure [Right Arm] 107/72 L Blood Pressure Mean [Right Arm] 83 02 Sat by Pulse Oximetry 92 L Oxygen Delivery Method Nasal Cannula Lab Data Lab results reviewed: Yes I reviewed the patient's lab results. Lab Results 03/31/24 01:56: WBC 9.5, RBC 4.42 L, Hgb 11.7 L, Hct 37.2 L, MCV 84.2, MCH 26.6 L, MCHC 31.6 L, RDW 17.6 H, Plt Count 272, MPV 8.5, Neut % (Auto) 78.4, Lymph % (Auto) 13.3, Dodge % (Auto) 7.8, Eos % (Auto) 0.1, Baso % (Auto) 0.4, Neut # (Auto) 7.4, Lymph # (Auto) 1.3, Dodge # (Auto) 0.7, Eos # (Auto) 0.0, Baso # (Auto) 0.0, Sodium 137, Potassium 4.0, Chloride 105, Carbon Dioxide 26, Anion Gap 10.0, BUN 31 H, Creatinine 1.60 H, Estimated Creat Clear 34, Estimated GFR 42 L, Est GFR ( Amer) 50 L, Glucose 99, Calcium 8.6, Magnesium 1.9, Total Bilirubin 1.1, AST 72 H, ALT 33, Alkaline Phosphatase 125, Troponin I 0.35 H, N T-Pro-B Natriuret Pep 42270 H, Total Protein 5.9 L, Albumin 3.1 L, Globulin 2.8, Albumin/Globulin Ratio 1.1 03/31/24 02:04: VBG pH 7.44 H, VBG pCO2 38.4, VBG pO2 114.0 H, VBG HCO3 25.2, VBG Total CO2 26.4, VBG O2 Saturation 98.2 H, VBG Base Excess 1.0, VBG Lactic Acid 3.7 H 03/31/24 01:56 03/31/24 01:56 Orders (Tests/Meds): ED MEDICATIONS Generic Name Dose Route Start Last Admin Trade Name Freq PRN Reason Stop Dose Admin Sodium Chloride 1,000 mls @ 999 mls/hr 03/31/24 03:15 Sod Chlor 0.9% 1000ml Bag IV 03/31/24 04:15 .[id number] MARYAN Discontinued Medications Generic Name Dose Route Start Last Admin Trade Name Freq PRN Reason Stop Dose Admin Ceftriaxone Sodium 1 gm/ 50 mls @ 100 mls/hr 03/31/24 02:34 03/31/24 02:50 Sodium Chloride IV 03/31/24 03:03 100 mls/hr ONCE ONE Administration Azithromycin 500 mg/ Sodium 250 mls @ 250 mls/hr 03/31/24 02:35 Chloride IV 03/31/24 02:36 ONCE ONE ORDERS Category Date Time Status CXR --portable [XR chest portable] Stat Exams 03/31/24 02:02 Completed POCUS Point of Care (ER Only) Stat Exams 03/31/24 03:06 Ordered BNP [NT Pro Brain Natriuretic Pep.] Stat Lab 03/31/24 01:56 Completed CBC w/Auto Diff [Complete Blood Count Auto Diff] Stat Lab 03/31/24 01:56 Completed CMP [Comprehensive Metabolic Panel] Stat Lab 03/31/24 01:56 Completed Magnesium Stat Lab 03/31/24 01:56 Completed Rapid PCR Covid and Flu A/B Stat Lab 03/31/24 02:37 Received Troponin I Q3H Lab 03/31/24 01:56 Completed Troponin I Q3H Lab 03/31/24 05:15 Ordered UA [Urinalysis and Microscopic] Stat Lab 03/31/24 02:01 Ordered Blood Culture Stat Micro 03/31/24 02:04 Received VBG [Venous Blood Gas] Stat RT 03/31/24 02:04 Completed ECG Data Tracing #1: I reviewed this ECG and interpreted as documented below: Atrial fibrillation with rapid ventricular response, rate of 119, wide QRS, no Sgarbossa positive ST changes. ECG initial impression date: 03/31/24 ECG initial impression time: 01:53 HEART Score History (anamnesis): Slightly suspicious ECG: Non-specific disturbance Age: >65 years Risk factors: Atherosclerosis history Troponin: > 3x normal limit HEART Score: 7 Medical Decision Narrative: 84-year-old male with history of insulin-dependent diabetes, paroxysmal A-fib, COPD on oxygen at baseline (unknown requirement) coronary artery disease status post CABG and stents, obesity presents for hypoglycemia, hypoxia. History was obtained via interactive discussion with patient, EMS, chart review. On arrival, patient is afebrile, hemodynamically stable though in A-fib RVR with rates between 100-130, satting low 90s on 4 L nasal cannula. Full physical exam performed and significant for increased work of breathing, frequent productive wet cough, rhonchi Differential includes but is not limited to pneumonia, COVID, heart failure, A- fib RVR, ACS,. Workup initiated including CBC CMP blood culture COVID urinalysis troponin BNP EKG chest x-ray. On re-evaluation, patient remains normotensive in A-fib RVR. Laboratory workup independently interpreted by me and significant for no significant leukocytosis, BNP elevated at 24,000, initial troponin elevated at 0.35, creatinine 1.6, at baseline.. Imaging independently interpreted by me and significant for bilateral infiltrates and possible pulmonary edema.. See radiology read for full review of final results. EKG independently interpreted by me and significant for A-fib RVR without obvious ischemic changes. Bedside ultrasound was performed to assess for pulmonary edema/volume overload versus consolidation and assess need for volume resuscitation. Bedside ultrasound shows no significant B-lines or pleural effusion. Given patient history, exam and workup, patient's presentation most likely represents pneumonia with A-fib RVR and resultant NSTEMI. Patient was given 1 L IV fluid bolus and initiated on IV ceftriaxone and azithromycin for treatment of pneumonia. Interactive discussion was had with the hospitalist on-call for admission. Procedures Risk/Benefits of Procedure(s) Were Explained: Yes Critical Care Critical Care Time Critical Care Time: No
--- NOTE | 2024-03-31 02:02 | XR_ITS ---
PROCEDURE INFORMATION: Exam: XR Chest Exam date and time: 03/31/2024 2:04 AM Age: 84 years old Clinical indication: Shortness of breath; Additional info: Cough, SOA TECHNIQUE: Imaging protocol: Radiologic exam of the chest. Views: 1 view. Total images: 1 COMPARISON: CR XR CHEST PORTABLE 08/08/2023 6:53 AM FINDINGS: Tubes, catheters and devices: EKG leads are present. Lungs: New small volume consolidations or pulmonary nodules in the left upper lung. Mild left perihilar infiltrate. Bibasilar atelectasis or scarring. No pulmonary vascular congestion. Underlying emphysema/COPD. Pleural spaces: Unremarkable. No pleural effusion. No pneumothorax. Heart/Mediastinum: Stable mild cardiomegaly. No mediastinal widening. Vasculature: Atherosclerotic aortic arch. Bones/joints: Status post median sternotomy. Osseous demineralization. Poor osseous detail. Other findings: Slight rotation to the right. IMPRESSION: 1. New small volume consolidations or irregular pulmonary nodules in the left upper lobe. Recommend follow-up to confirm resolution. 2. Mild left perihilar infiltrate 3. Underlying emphysema/COPD 4. Stable mild cardiomegaly without vascular congestion.
[2024-03-31 02:10] LABS: Basophils % 0.4 % (0.1-2.0); Eosinophils % 0.1 % (0.1-12.0); Hematocrit 37.2 % (42.0-52.0); Hemoglobin 11.7 g/dL (14.1-18.0); Lymphocytes # 1.3 K/mm3 (0.7-4.5); Lymphocytes % 13.3 % (10-50); Mean Corpuscular HGB Conc 31.6 g/dL (31.8-35.4); Mean Corpuscular Hemoglobin 26.6 pg (27.0-31.2); Mean Corpuscular Volume 84.2 fl (80-94); Mean Platelet Volume 8.5 fl (7.4-10.4); Monocytes # 0.7 K/mm3 (0.1-1.0); Monocytes % 7.8 % (1.7-9.3); Neutrophils # 7.4 K/mm3 (1.8-7.8); Neutrophils % 78.4 % (37.0-80.0); Platelet Count 272 K/mm3 (142-424); Red Blood Count 4.42 M/mm3 (4.60-6.20); Red Cell Distribution Width 17.6 % (11.5-17.5); White Blood Count 9.5 K/mm3 (4.8-10.8)
[2024-03-31 02:16] LABS: Alanine Aminotransferase 33 U/L (12-78); Albumin Level 3.1 g/dl (3.5-5.0); Albumin/Globulin Ratio 1.1 (1.1-1.8); Alkaline Phosphatase 125 U/L (38-126); Aspartate Amino Transferase 72 U/L (17-59); Bilirubin,Total 1.1 mg/dl (0.2-1.3); Blood Urea Nitrogen 31 mg/dl (9-20); Calcium 8.6 mg/dl (8.4-10.2); Carbon Dioxide 26 mmol/L (22.0-30.0); Chloride 105 mmol/L (98-107); Creatinine Clearance Estimated 34 mL/min (50-200); Estimated Glomerular Filt Rate 42 ml/min (>60); GFR (African American) 50 ML/MIN (>60); Globulin 2.8 g/dL (1.3-3.2); Glucose 99 mg/dl (74-100); Sodium 137 mmol/L (136-145); Total Protein,Serum 5.9 g/dl (6.3-8.2)
[2024-03-31 02:17] LABS: Magnesium 1.9 mg/dl (1.6-2.3)
[2024-03-31 02:17] LABS: VBG HCO3 25.2 mmol/L (23-30); VBG Oxygen Saturation 98.2 % (50-70); VBG PCO2 38.4 mmol/L (35-51); VBG PH 7.44 mmol/L (7.31-7.41); VBG Total CO2 26.4 mmol/L (23-27)
[2024-03-31 02:19] LABS: Lactate Venous 3.7 mmol/L (0.4-2.0)
[2024-03-31 02:28] LABS: NT Pro Brain Natriuretic Pep. 24300 pg/mL (0-450)
[2024-03-31 02:29] LABS: Troponin I 0.35 ng/ml (0.00-0.034)
--- NOTE | 2024-03-31 02:32 | PC.NURSE ---
Critical Trop 0.35, MD informed and STACEY Raymundo informed.
[2024-03-31 02:40] LABS: Coronavirus 19, PCR Not Detected (NotDetected); Influenza A, PCR Not Detected (NotDetected); Influenza B, PCR Not Detected (NotDetected)
[2024-03-31] MEDS: CEFTRIAXONE 1 GM 1 GM in 0.9 % SODIUM CHLORIDE 50 ML IV (02:50)
--- NOTE | 2024-03-31 03:26 | PC.NURSE ---
Report called to STACEY Sweeney
[2024-03-31] MEDS: 0.9 % SODIUM CHLORIDE 1000ML 1,000 ML 999 ML IV (03:28)
[2024-03-31] MEDS: AZITHROMYCIN 500 MG in 0.9 % SODIUM CHLORIDE 250 ML 250 MG IV (03:31)
--- NOTE | 2024-03-31 03:36 | CT_ITS ---
PROCEDURE INFORMATION: Exam: CT Chest Without Contrast; Diagnostic Exam date and time: 03/31/2024 4:49 AM Age: 84 years old Clinical indication: Other: Pulmonary nodules TECHNIQUE: Imaging protocol: Diagnostic computed tomography of the chest without contrast. Radiation optimization: All CT scans at this facility use at least one of these dose optimization techniques: automated exposure control; mA and/or kV adjustment per patient size (includes targeted exams where dose is matched to clinical indication); or iterative reconstruction. COMPARISON: CT CHEST W CON 06/30/2022 11:51 AM FINDINGS: Lungs: Patchy bilateral airspace disease is noted most prominently within the left upper lobe is well as the right lower lobe. Chronic interstitial changes are present bilaterally. Bibasilar atelectasis. Pleural spaces: Unremarkable. No pneumothorax. No pleural effusion. Heart: Unremarkable. No cardiomegaly. No pericardial effusion. Coronary arteries: Coronary atherosclerosis. Lymph nodes: Unremarkable. No enlarged lymph nodes. Vasculature: Unremarkable. No aortic aneurysm. Bones/joints: Unremarkable. No acute fracture. Soft tissues: Unremarkable. IMPRESSION: 1. Patchy bilateral airspace opacities as described most prominently in the left upper lobe and right lower lobe, likely infiltrate but follow-up after treatment of presumed pneumonia to demonstrate resolution. 2. Coronary atherosclerosis. 3. Diffuse chronic interstitial changes.
--- NOTE | 2024-03-31 03:44 | PC.NURSE ---
Pt arrived to the floor via stretcher @ [id number]
--- NOTE | 2024-03-31 03:46 | P.HP_ITS ---
History of Present Illness *Admission Date: 03/31/24 *Reason for visit:: Shortness of air *History of present illness: This is an 84-year-old male who presents to [facility] emergency department with concerns of shortness of air. He reports a nonproductive croupy cough over the last few days not improving with home care. He describes a significant smoking history of 2 packs/day for greater than 30 years but quit a few years ago. He reports home oxygen at 4 L. He describes a history of coronary disease with previous surgical intervention and stent deployment. In the ED he was satting in the 80s and with oxygen administration has saturations improved. Chest imaging was concerning for cardiomegaly and his troponin was elevated. His telemetry identified atrial fibrillation with rates in the 120s. His COVID test came back negative. [facility] Medical History (Updated 03/31/24 @ 04:14 by Tito Ascencio MD) Morbid obesity with BMI of 40.0-44.9, adult CKD stage 3a, GFR 45-59 ml/min Iron deficiency anemia Multiple pulmonary nodules Chronic hypoxemic respiratory failure COPD (chronic obstructive pulmonary disease) Pulmonary emphysema Stopped smoking with greater than 30 pack year history Lung nodule Dyspnea on exertion Sleep apnea Diabetes mellitus Abnormal EKG Atypical angina JUAN FRANCISCO (cerebral atherosclerosis) Edema Pre-op evaluation Claudication Paroxysmal atrial fibrillation HHD (hypertensive heart disease) Surgical History History of prostate surgery History of heart artery stent Family History Other Anemia Coronary artery disease Diabetes Heart attack Hyperlipidemia Hypertension Stroke Social History Smoking Status: Former smoker tobacco type: cigarettes packs per day: 2 second hand exposure: No alcohol intake: never substance use type: denies use current occupational status: retired Travel in the last 8 weeks: None household members: spouse housing: house current occupational exposures/hazards: No caffeine: Yes Review of Systems Review of Systems Review of systems:: pertinent systems reviewed and negative unless documented below Constitutional Constitutional: Reports lethargy, Reports snoring and Reports weakness *Cardiovascular Cardiovascular: Denies chest pain, Denies chest pain at rest, Reports dyspnea, Reports dyspnea on exertion, Reports orthopnea, Reports palpitations and Reports paroxysmal nocturnal dyspnea *Respiratory Respiratory: Reports dyspnea, Reports dyspnea on exertion and Reports snoring *Gastrointestinal Gastrointestinal: Denies loose stools, Denies nausea and Denies vomiting *Neurologic Neurologic: Denies abnormal speech, Denies confusion, Denies localized weakness, Denies sensory deficit and Reports weakness Psychiatric Psychiatric: Denies confusion Endocrine Endocrine: Reports palpitations Meds Home Medications and Allergies Home Medications ?Medication ?Instructions ?Recorded ?Confirmed ?Type albuterol sulfate 90 mcg/actuation 2 inh inhalation Q6H PRN shortness 03/31/22 03/31/24 Rx aerosol inhaler of breath or wheezing 90 days #8.5 grams clopidogrel 75 mg tablet (Plavix) 75 mg PO DAILY #90 tabs 10/28/22 03/31/24 Rx insulin regular hum U-500 conc 500 120 unit (0.24 mL) SQ BIDWMEAL 11/05/22 03/22/24 Rx unit/mL(3 mL) subcut pen Diabetes 30 days #14.4 mL oxybutynin chloride 10 mg 10 mg PO DAILY 11/05/22 03/31/24 History tablet,extended release 24 hr pen needle, diabetic 32 gauge x #100 ea 06/01/23 03/22/24 Rx 5/32 (BD Jayne 2nd Gen Pen Needle) torsemide 10 mg tablet See Rx Instructions .Route 09/01/23 03/31/24 Rx .COMPLEX #180 tabs gabapentin 300 mg capsule 300 mg PO BID Pain #60 caps 11/21/23 03/31/24 Rx ipratropium 0.5 mg-albuterol 3 mg 3 ml inhalation QID PRN shortness 11/21/23 03/31/24 Rx (2.5 mg base)/3 mL nebulization of breath or wheezing 90 days #270 soln mL tiotropium 2.5 mcg-olodaterol 2.5 2 puff inhalation DAILY Breathing 11/21/23 03/31/24 Rx mcg/actuation mist for inhalation problems #4 grams (Stiolto Respimat) tamsulosin 0.4 mg capsule 0.4 mg PO DAILY 11/22/23 03/31/24 History gemfibrozil 600 mg tablet See Rx Instructions .Route 01/02/24 03/31/24 Rx .COMPLEX #180 tabs pantoprazole 40 mg tablet,delayed See Rx Instructions .Route 02/07/24 03/31/24 Rx release .COMPLEX #90 tabs benzonatate 200 mg capsule 200 mg PO TID PRN cough #90 caps 02/17/24 03/31/24 Rx miconazole nitrate 2 % topical 1 applic topical BID #85 grams 02/17/24 03/31/24 Rx powder (Lotrimin AF) rosuvastatin 40 mg tablet See Rx Instructions .Route 02/22/24 03/31/24 Rx .COMPLEX #30 tabs ferrous gluconate 324 mg (38 mg See Rx Instructions .Route 02/27/24 03/31/24 Rx iron) tablet .COMPLEX #30 tabs hydrocodone 5 mg-acetaminophen 325 1 tab PO DAILY #30 tabs 03/21/24 03/31/24 Rx mg tablet fluconazole 100 mg tablet 100 mg PO DAILY #10 tabs 03/22/24 03/31/24 Rx (Diflucan) nystatin 100,000 unit/gram topical 1 applic topical TID #60 grams 03/22/24 03/31/24 Rx cream New Prescriptions to Start Prescriptions: Allergies Allergy/AdvReac Type Severity Reaction Status Date / Time oxycodone Allergy Intermediate I-RASH Verified 03/22/24 15:36 Sulfa (Sulfonamide Allergy Unknown Unknown Verified 03/22/24 15:36 Antibiotics) allergy reaction aspirin AdvReac Intermediate Other Verified 03/22/24 15:36 Exam Data for Last 24 hours Vital signs and Labs for Last 24 Hours: Temp Pulse Resp BP Pulse Ox O2 Del Method 98.2 F 120 H 22 107/72 L 92 L Nasal Cannula 03/31/24 01:58 03/31/24 01:58 03/31/24 01:58 03/31/24 01:58 03/31/24 01:58 03/31/24 01:58 Laboratory Results - last 24 hr 03/31/24 01:56: WBC 9.5, RBC 4.42 L, Hgb 11.7 L, Hct 37.2 L, MCV 84.2, MCH 26.6 L, MCHC 31.6 L, RDW 17.6 H, Plt Count 272, MPV 8.5, Neut % (Auto) 78.4, Lymph % (Auto) 13.3, [place] % (Auto) 7.8, Eos % (Auto) 0.1, Baso % (Auto) 0.4, Neut # (Auto) 7.4, Lymph # (Auto) 1.3, [place] # (Auto) 0.7, Eos # (Auto) 0.0, Baso # (Auto) 0.0, Sodium 137, Potassium 4.0, Chloride 105, Carbon Dioxide 26, Anion Gap 10.0, BUN 31 H, Creatinine 1.60 H, Estimated Creat Clear 34, Estimated GFR 42 L, Est GFR ( Amer) 50 L, Glucose 99, Calcium 8.6, Magnesium 1.9, Total Bilirubin 1.1, AST 72 H, ALT 33, Alkaline Phosphatase 125, Troponin I 0.35 H, NT-Pro-B Natriuret Pep 06762 H, Total Protein 5.9 L, Albumin 3.1 L, Globulin 2.8, Albumin/Globulin Ratio 1.1 03/31/24 02:04: VBG pH 7.44 H, VBG pCO2 38.4, VBG pO2 114.0 H, VBG HCO3 25.2, VBG Total CO2 26.4, VBG O2 Saturation 98.2 H, VBG Base Excess 1.0, VBG Lactic Acid 3.7 H 03/31/24 02:37: SARS-CoV-2 (PCR) Not detected, Influenza A Untype (PCR) Not detected, Influenza Type B (PCR) Not detected I & O for Last 24 hours: Intake & Output 03/28/24 03/29/24 03/30/24 03/31/24 23:59 23:59 23:59 23:59 Weight 127.006 kg Constitutional Constitutional: no acute distress, morbidly obese, chronically ill appearing and cooperative *Routine HEENT Exam Head: Present normocephalic and atraumatic Eye: Present EOMI and PERRL ENT: Present mucous membranes moist Comments: Diminished hearing *Routine Neck Exam Neck: Present trachea midline; Absent JVD or lymphadenopathy *Routine Respiratory Exam Respiratory: Present rhonchi, crackles and symmetric chest movement *Routine Cardiovascular Exam Cardiovascular: Present irregular rhythm *Routine Abdominal Exam Abdominal: Present soft and normoactive bowel sounds; Absent tenderness *Routine Rectal Exam Rectal:: deferred *Routine Genitalia Exam Genitalia:: deferred *Routine Extremities Exam Extremities: Present edema *Routine Skin Exam Skin: Absent rash *Routine Neurological Exam Neurological: Present alert, oriented X3, moving all extremities, vision grossly intact and normal speech; Absent sensory deficit or motor deficit Routine Psychiatric Exam Psychiatric: Present normal affect and cooperative Assessment and Plan *Assessment and plan (1) Atrial fibrillation with rapid ventricular response: Status: Acute Category: Medical Code(s): I48.91 - Unspecified atrial fibrillation (2) Myocardial injury: Status: Acute Category: Medical Code(s): I5A - Non-ischemic myocardial injury (non-traumatic) (3) CAD (coronary artery disease): Status: Acute Category: Medical Code(s): I25.10 - Atherosclerotic heart disease of [place] coronary artery without angina pectoris (4) Acute on chronic heart failure with preserved ejection fraction (HFpEF): Status: Acute Category: Medical Code(s): I50.33 - Acute on chronic diastolic (congestive) heart failure (5) Acute exacerbation of chronic obstructive pulmonary disease: Status: Acute Category: Medical Code(s): J44.1 - Chronic obstructive pulmonary disease with (acute) exacerbation (6) Sleep apnea: Status: Chronic Category: Medical Code(s): G47.30 - Sleep apnea, unspecified (7) CKD stage 3a, GFR 45-59 ml/min: Status: Acute Category: Medical Code(s): N18.31 - Chronic kidney disease, stage 3a (8) Diabetes mellitus: Status: Chronic Qualifiers: Diabetes mellitus type: type 1 Diabetes mellitus complication status: with other specified complication Qualified Code(s): E10.69 - Type 1 diabetes mellitus with other specified complication Category: Medical Code(s): E11.9 - Type 2 diabetes mellitus without complications (9) Iron deficiency anemia: Status: Acute Category: Medical Code(s): D50.9 - Iron deficiency anemia, unspecified (10) Morbid obesity with BMI of 40.0-44.9, adult: Status: Acute Category: Medical Code(s): E66.01 - Morbid (severe) obesity due to excess calories; Z68.41 - Body mass index [BMI] 40.0-44.9, adult Plan This is an 84-year-old male with BMI 43, coronary artery disease, HFpEF and COPD who presents with shortness of air and was found to be in A-fib with RVR with elevated troponin and proBNP. Problems addressed as follows: Atrial fibrillation with RVR [id number] Telemetry monitoring Eliquis 2.5 mg twice daily (age and creatinine) Beta-sohail therapy Trending electrolytes and magnesium Myocardial injury type II A-fib with RVR assess Coronary artery disease Acute on chronic HFpEF Telemetry monitoring Troponin trend Cardiology consultation Previous echo (09/2021) EF 50%, LVH, grade 2 diastolic dysfunction Echocardiogram pending ED chest x-ray with cardiomegaly Aspirin allergy noted P2Y12 inhibitor therapy Statin therapy Factor Xa inhibitor therapy Beta-sohail therapy IV loop diuretic therapy SGLT2 inhibitor therapy ARB therapy, consideration for ARNI therapy pending renal function evaluations Aldosterone antagonist therapy Accurate I's and O's Sodium and fluid restriction Routine weights Trending electrolytes, creatinine Intermittent proBNP Acute exacerbation COPD Chronic hypoxic respiratory failure (home O2 4 L) JODY/OHS/BMI 43 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 Doxycycline 100 mg p.o. twice daily PPI therapy Calorie appropriate diet Trending labs and inflammatory markers Chronic kidney disease stage IIIa Baseline creatinine 1.5 Trending electrolytes and creatinine Avoiding NSAIDs Loop diuretic noted Iron deficiency anemia Iron studies B12 evaluation Iron replacement therapy with ascorbic acid Diabetes Routine blood sugar monitoring Hemoglobin A1c 9.8% (October 2023) Basal insulin therapy Sliding scale insulin therapy Consistent carbohydrate diet The length of stay for this patient will be 2 midnights or greater due to above diagnoses.
--- NOTE | 2024-03-31 04:40 | PC.NURSE ---
pt off floor to CT @04:40
--- NOTE | 2024-03-31 04:53 | PC.NURSE ---
pt back to floor from CT @04:53
[2024-03-31 06:20] LABS: Reflex Lactic Add Lactic Reflex
[2024-03-31] MEDS: BUDESONIDE 0.5MG/2ML NEB 0.5 MG IH ×2 (06:24→18:25)
[2024-03-31] MEDS: IPRATROPIUM/ALBUTEROL 3 ML NEB IH ×4 (06:24→23:51)
[2024-03-31 06:36] LABS: POC Glucose,Bedside 166 (70-110)
[2024-03-31] MEDS: humaLOG 100 UNITS/ML 10ML VIAL (SSI) SQ ×4 (06:42→21:48)
[2024-03-31 06:48] LABS: Chloride 104 mmol/L (98-107); Potassium 3.8 mmoL/L (3.5-5.1); Sodium 137 mmol/L (136-145)
[2024-03-31 06:49] LABS: Iron 35 ug/dL (49-181)
[2024-03-31 06:51] LABS: Anion Gap 9.8 mEq/L (5-15); Blood Urea Nitrogen 34 mg/dl (9-20); Calcium 8.4 mg/dl (8.4-10.2); Carbon Dioxide 27 mmol/L (22.0-30.0); Creatinine Clearance Estimated 39 mL/min (50-200); Estimated Glomerular Filt Rate 32 ml/min (>60); GFR (African American) 39 ML/MIN (>60); Glucose 119 mg/dl (74-100)
[2024-03-31 06:59] LABS: Total Iron Binding Capacity 456 ug/dL (261-462)
[2024-03-31 07:29] LABS: Hemoglobin A1C 10.2 % (4.0-6.0)
[2024-03-31 07:37] LABS: Procalcitonin 1.81 ng/mL (0.0-2.0)
[2024-03-31 07:44] LABS: Troponin I 0.32 ng/ml (0.00-0.034)
[2024-03-31 08:17] LABS: Microscopic, Urine URINE MICROSCOPIC (MICROSCOPIC)
[2024-03-31 08:20] LABS: Appearance,Urine CLOUDY (Clear); Blood, Urine 3+ (Negative); Color,Urine YELLOW (Yellow); Glucose,Urine (UA) 1+ (Negative); Ketones,Urine Negative (Negative); Leukocyte Esterase,Urine Negative (Negative); Nitrate,Urine Negative (Negative); Protein,Urine 3+ (Negative); Specific Gravity, Urine 1.025 (1.005-1.030)
[2024-03-31 08:29] LABS: Bilirubin,Urine 1+ (Negative)
[2024-03-31 08:37] LABS: Amorphous Sediment,Urine 1+ /lpf; Bacteria,Urine 1+ /lpf; Squamous Epithelial Cell,Urine Occasional #/hpf (0-5); WBC,Urine Occasional #/hpf (0-3)
[2024-03-31] MEDS: CARVEDILOL 3.125MG TABLET 3.125 MG PO ×2 (08:38→20:16)
[2024-03-31] MEDS: CLOPIDOGREL 75MG TAB 75 MG PO (08:38)
[2024-03-31] MEDS: EMPAGLIFLOZIN 10MG TABLET 10 MG PO (08:38)
[2024-03-31] MEDS: DOCUSATE SODIUM 100 MG CAPSULE PO (08:39)
[2024-03-31] MEDS: SPIRONOLACTONE 25MG TABLET 25 MG PO (08:39)
[2024-03-31] MEDS: APIXABAN 5MG TABLET 2.5 MG PO (08:39)
[2024-03-31] MEDS: predniSONE 20MG TAB 40 MG PO (08:39)
[2024-03-31] MEDS: ASCORBIC ACID 500MG TAB 500 MG PO (08:39)
[2024-03-31] MEDS: IRBESARTAN 75MG TABLET 75 MG PO (08:39)
[2024-03-31] MEDS: FERROUS SULFATE 325MG TABLET 325 MG PO (08:39)
[2024-03-31] MEDS: PANTOPRAZOLE 40MG TABLET 40 MG PO (08:39)
[2024-03-31] MEDS: BUMETANIDE 1MG/4ML VIAL 1 MG IV ×2 (08:40→15:06)
--- NOTE | 2024-03-31 09:10 | HMH.PHAINT1 ---
Pharmacy Intervention Comments: MEDICATION RECONCILIATION COMPLETED ON PATIENT USING EXTERNAL FILL HISTORY FROM PHARMACY AND LISTS FROM PCP/PAIN MANAGEMENT OFFICES. -TRAN MICHELLED
[2024-03-31 09:11] LABS: Vitamin B12 546 pg/mL (239-931)
[2024-03-31 10:19] LABS: Adenovirus,PCR Not Detected (NotDetected); Bordetella Pertussis Not Detected (NotDetected); Chlamydophila Pneumoniae, PCR Not Detected (NotDetected); Coronavirus 19, PCR Not Detected (NotDetected); Coronavirus 229E Not Detected (NotDetected); Coronavirus NL63 Not Detected (NotDetected); Coronavirus OC43 Not Detected (NotDetected); Coronovirus HKU1,PCR Not Detected (NotDetected); Human Metapneumovirus Not Detected (NotDetected); Influenza A, PCR Not Detected (NotDetected); Influenza AH1, 2009 Not Detected (NotDetected); Influenza AH1, PCR Not Detected (NotDetected); Influenza AH3,PCR Not Detected (NotDetected); Influenza B, PCR Not Detected (NotDetected); Parainfluenza 1, PCR Not Detected (NotDetected); Parainfluenza 2, PCR Not Detected (NotDetected); Parainfluenza 3, PCR Not Detected (NotDetected); Parainfluenza 4, PCR Not Detected (NotDetected); Respiratory Syncytial Virus Not Detected (NotDetected); Rhinovirus/Enterovirus Not Detected (NotDetected)
[2024-03-31 10:20] LABS: Mycoplasma Pneumoniae, PCR Not Detected (NotDetected)
[2024-03-31 10:48] LABS: POC Glucose,Bedside 232 (70-110)
[2024-03-31 11:03] LABS: Lactic Acid Follow Up (RFLX 1) 1.6 mmol/L (0.7-2.1)
[2024-03-31 11:18] LABS: Troponin I 0.26 ng/ml (0.00-0.034)
[2024-03-31 15:50] LABS: POC Glucose,Bedside 371 (70-110)
--- NOTE | 2024-03-31 17:49 | PC.NURSE ---
pt is currently up to the chair eating dinner. pt has not complained of any pain this shift. 4L NC with sats 93-95%. Pt says this is his baseline. fsbs was 232 at 1100 and 371 at 1600. pt treated with insulin per mar. langley catheter placed this shift for accurate tracking of I & O. pt tolerated placement well and has had 800ml out per langley this shift. bumex and abx given per MAR, as well as home medications. family is currently at bedside. pt is afib with bundle branch block on tele and has a HR in the 90s-120s. expiratory ronchi heard on auscultation. active bowel sounds. skin intact with edema noted to the lower extremities. 2+ this am but upon later evaluation they are now 1+. bed alarm has been on this shift for patient safety. call light within reach, chair in the locked position.
[2024-03-31 18:22] LABS: Chloride 102 mmol/L (98-107); Potassium 4.2 mmoL/L (3.5-5.1); Sodium 134 mmol/L (136-145)
[2024-03-31 18:25] LABS: Anion Gap 13.2 mEq/L (5-15); Blood Urea Nitrogen 37 mg/dl (9-20); Calcium 8.3 mg/dl (8.4-10.2); Carbon Dioxide 23 mmol/L (22.0-30.0); Creatinine Clearance Estimated 35 mL/min (50-200); Estimated Glomerular Filt Rate 29 ml/min (>60); GFR (African American) 35 ML/MIN (>60); Glucose 381 mg/dl (74-100)
[2024-03-31] MEDS: ENOXAPARIN 100MG/ML SYRINGE 95 MG SQ (20:15)
[2024-03-31] MEDS: CEFTRIAXONE SODIUM 1 GM in 0.9 % SODIUM CHLORIDE 50 ML IV (20:15)
[2024-03-31] MEDS: ATORVASTATIN 40MG TABLET 40 MG PO (20:16)
[2024-03-31] MEDS: INSULIN GLARGINE 100 UNITS/ML 3ML FLEXPEN 10 UNIT SQ (20:16)
[2024-03-31 21:11] LABS: POC Glucose,Bedside 525 (70-110)
[2024-03-31 21:11] LABS: Glucose,Random 509 mg/dL (74-100)
--- NOTE | 2024-03-31 21:11 | PC.NURSE ---
Bedside glucose at 20:21 was 525; STAT glucose per protocol was ordered and taken by lab. Maria E from lab called me at this time and reported a critical glucose value of 509. Dr Ascencio was paged and notified of the critical reading. Patient has received his previous scheduled medications, including Insulin glargine, per SEP. Patient is currently resting supine in bed, at bedside, with no complaints at this time. Waiting for any further interventions for ongoing care.
[2024-04-01] VITALS (13 sets, daily range): BP systolic 130–144; BP diastolic 58–75; PULSE 64–100; RESP 17–22; TEMP 36.2–36.8; O2SAT 89–97; BMI 32.2
[2024-04-01 00:03] LABS: POC Glucose,Bedside 482 (70-110)
[2024-04-01] MEDS: AZITHROMYCIN 500 MG in 0.9 % SODIUM CHLORIDE 250 ML 250 MG IV (04:06)
[2024-04-01 05:32] LABS: POC Glucose,Bedside 403 (70-110)
--- NOTE | 2024-04-01 05:56 | PC.NURSE ---
Patient is alert and oriented, with occasional periods of short-term memory loss. Throughout the majority of the night, patient was observed to have eyes closed, respirations even and unlabored, and no apparent distress. His vital signs have remained relatively stable; however, patient is continuing to run afib on telemetry. He has tolerated 4 L of oxygen via nasal cannula well this shift; oxygen is humidified. Patient's lung sounds were diminished with occasional expiratory rhonchi and wheezing heard with auscultation. Patient continues to have a loud cough intermittently. Patient's bowel sounds were active in all quadrants. He received his scheduled medications per MAR along with antibiotics and Glargine insulin. Patient's fingerstick glucoses have remained quite elevated this shift; at 21:00, his glucose was 525. A STAT random glucose was ordered and taken by lab; the new reading was 509. This was addressed by paging the MD, and then administering 15 units of Lispro insulin per MAR. Patient's FSBS has trended down with a spot check, and this morning (05:00), his reading shown 403. Patient will be receiving 15 units of Lispro insulin per sliding scale. At this time, patient does not have any further complaints. He is currently resting supine in bed. Bed alarm is on. Call light within reach.
[2024-04-01] MEDS: humaLOG 100 UNITS/ML 10ML VIAL (SSI) SQ ×4 (06:27→20:59)
[2024-04-01] MEDS: IPRATROPIUM/ALBUTEROL 3 ML NEB IH ×4 (06:45→23:08)
[2024-04-01] MEDS: BUDESONIDE 0.5MG/2ML NEB 0.5 MG IH ×2 (06:45→18:25)
[2024-04-01 07:48] LABS: Basophils % 0.2 % (0.1-2.0); Eosinophils % 0.4 % (0.1-12.0); Hemoglobin 11.3 g/dL (14.1-18.0); Lymphocytes # 0.9 K/mm3 (0.7-4.5); Mean Corpuscular HGB Conc 28.9 g/dL (31.8-35.4); Mean Corpuscular Hemoglobin 26.5 pg (27.0-31.2); Mean Corpuscular Volume 91.4 fl (80-94); Mean Platelet Volume 8.6 fl (7.4-10.4); Monocytes # 0.4 K/mm3 (0.1-1.0); Monocytes % 4.7 % (1.7-9.3); Neutrophils % 83.7 % (37.0-80.0); Platelet Count 247 K/mm3 (142-424); Red Blood Count 4.26 M/mm3 (4.60-6.20); Red Cell Distribution Width 17.4 % (11.5-17.5); White Blood Count 8.3 K/mm3 (4.8-10.8)
--- NOTE | 2024-04-01 07:59 | EXP.ACUTE.PN ---
Subjective *Date: 04/01/24 *Time: 12:26 Interval history: Patient on 3 L this morning. Within his range of normal baseline. Diuresing well, -2.3 L since admission. Denies chest pain or shortness of breath. No nausea or vomiting. No diarrhea. Medical Exam Vital signs and Labs for Last 24 Hours: Vital Signs Temp Pulse Pulse Resp BP Pulse Ox O2 Del Method 04/01/24 07:50 97.2 F L 73 20 139/61 92 L Nasal Cannula 04/01/24 06:58 Nasal Cannula 04/01/24 06:46 81 04/01/24 06:46 83 04/01/24 06:46 97 Nasal Cannula 04/01/24 05:00 Nasal Cannula 04/01/24 04:00 70 04/01/24 04:00 97.9 F 65 20 144/73 H 95 Nasal Cannula 04/01/24 03:00 Nasal Cannula 04/01/24 01:00 Nasal Cannula 04/01/24 00:43 64 04/01/24 00:42 81 04/01/24 00:00 95 H 04/01/24 00:00 98.2 F 84 18 138/58 L 96 Nasal Cannula 03/31/24 23:00 Nasal Cannula 03/31/24 21:00 Nasal Cannula 03/31/24 20:00 77 16 94 L Nasal Cannula 03/31/24 20:00 80 03/31/24 20:00 97.9 F 77 16 116/63 94 L Nasal Cannula 03/31/24 19:04 Nasal Cannula 03/31/24 19:04 84 03/31/24 19:03 83 03/31/24 18:35 Nasal Cannula 03/31/24 17:00 Nasal Cannula 03/31/24 16:00 97.7 F 73 22 116/70 96 Nasal Cannula 03/31/24 16:00 79 03/31/24 15:00 Nasal Cannula 03/31/24 13:06 87 03/31/24 13:06 87 03/31/24 13:06 94 L Nasal Cannula 03/31/24 13:00 Nasal Cannula 03/31/24 12:00 95 H 03/31/24 12:00 98.3 F 90 21 149/110 H 93 L Nasal Cannula 03/31/24 11:00 Nasal Cannula 03/31/24 09:00 Nasal Cannula 03/31/24 08:00 106 H 03/31/24 08:00 Nasal Cannula O2 Flow Rate 04/01/24 07:50 3 04/01/24 06:58 3 04/01/24 06:46 04/01/24 06:46 04/01/24 06:46 4 04/01/24 05:00 4 04/01/24 04:00 04/01/24 04:00 4 04/01/24 03:00 4 04/01/24 01:00 4 04/01/24 00:43 04/01/24 00:42 04/01/24 00:00 04/01/24 00:00 4 03/31/24 23:00 4 03/31/24 21:00 4 03/31/24 20:00 4 03/31/24 20:00 03/31/24 20:00 4 03/31/24 19:04 4 03/31/24 19:04 03/31/24 19:03 03/31/24 18:35 4 03/31/24 17:00 4 03/31/24 16:00 4 03/31/24 16:00 03/31/24 15:00 4 03/31/24 13:06 03/31/24 13:06 03/31/24 13:06 4 03/31/24 13:00 4 03/31/24 12:00 03/31/24 12:00 4 03/31/24 11:00 4 03/31/24 09:00 4 03/31/24 08:00 03/31/24 08:00 4 Intake and Output 03/31/24 03/31/24 04/01/24 15:59 23:59 07:59 Intake Total 300 / 710 290 / 290 Output Total 200 / 2600 1600 / 2600 1300 / 1300 Balance 100 / -1890 -1600 / -1890 -1010 / -1010 Intake: Intake, Oral Amount 300 / 660 240 / 240 Intake, Total IV Amount 50 / 50 Ceftriaxone Sodium 1 gm In 0.9 50 / 50 % Sodium Chloride 50 ml @ 100 mls/hr IV Q24H [facility] Rx#:[id number] Output: Output, Urine Amount 200 / 2600 1600 / 2600 1300 / 1300 Other: Number of Unmeasured Voids 1 0 0 Weight 96.434 kg Patient Weight 04/01/24 23:59 Weight 96.434 kg Laboratory Results - last 24 hr 03/31/24 02:31: Chlamy pneumoniae PCR Not detected, Adenovirus (PCR) Not detected, B. pertussis DNA (PCR) Not detected, Coronavirus OC43 (PCR) Not detected, Coronavirus HKU1 (PCR) Not detected, Coronavirus 229E (PCR) Not detected, SARS-CoV-2 (PCR) Not detected, Coronavirus NL63 (PCR) Not detected, Human Metapneumovir PCR Not detected, Influenza A (H1) PCR Not detected, Influ A (H1N1/09) PCR Not detected, Influenza A (H3) PCR Not detected, Influenza Type A (PCR) Not detected, Influenza Type B (PCR) Not detected, M. pneumoniae (PCR) Not detected, Parainfluenza 1 (PCR) Not detected, Parainfluenza 2 (PCR) Not detected, Parainfluenza 3 (PCR) Not detected, Parainfluenza 4 (PCR) Not detected, RSV (PCR) Not detected, Entero/Rhino (PCR) Not detected 03/31/24 06:17: Vitamin B12 546 03/31/24 10:40: Lactate 1.6, Troponin I 0.26 H 03/31/24 10:41: POC Glucose 232 H 03/31/24 15:40: POC Glucose 371 H* 03/31/24 17:45: Sodium 134 L, Potassium 4.2, Chloride 102, Carbon Dioxide 23, Anion Gap 13.2, BUN 37 H, Creatinine 2.20 H, Estimated Creat Clear 35, Estimated GFR 29 L, Est GFR ( Amer) 35 L, Glucose 381 H D, Calcium 8.3 L 03/31/24 20:21: POC Glucose 525 H* 03/31/24 20:50: Random Glucose 509 H* 03/31/24 23:52: POC Glucose 482 H* 03/31/24 : Urine Color Yellow, Urine Appearance Cloudy, Urine pH 6.0, Ur Specific [place] 1.025, Urine Protein 3+ A, Urine Glucose (UA) 1+, Urine Ketones Negative, Urine Blood 3+ A, Urine Nitrate Negative, Urine Bilirubin 1+ A, Urine Urobilinogen 1.0, Ur Leukocyte Esterase Negative, Urine RBC 5-10, Urine WBC Occasional, Ur Squamous Epith Cells Occasional, Amorphous Sediment 1+, Urine Bacteria 1+, Fine Granular Casts 3-5 04/01/24 05:24: POC Glucose 403 H* I & O for Labs for Last 24 Hours: Intake & Output 03/29/24 03/30/24 03/31/24 04/01/24 23:59 23:59 23:59 23:59 Intake Total 420 / 710 290 / 290 Output Total 1800 / 2600 1300 / 1300 Balance -1380 / -1890 -1010 / -1010 Weight 96.388 kg 96.434 kg Microbiology Reports for the Last 24 Hours: Microbiology 03/31/24 02:04 Blood Blood Culture - Preliminary NO GROWTH AFTER 24 HOURS 03/31/24 02:31 Blood Blood Culture - Preliminary NO GROWTH AFTER 24 HOURS 03/31/24 10:41 Sputum - Expectorated Sputum Gram Stain - Final Constitutional: Present mild distress, obese, chronically ill appearing and cooperative Head: Present atraumatic and normocephalic ENT: Present normal exam Neck: Present normal inspection Respiratory: Present crackles (Bases) and normal respiratory effort; Absent accessory muscle use, rhonchi or wheezes Cardiac: Present Reg Rate and Rhythm GI: Present soft and normal bowel sounds; Absent distention or tenderness Extremities: Present normal inspection and full ROM; Absent edema Skin: Present intact; Absent erythema Neuro: Present Grossly Intact, alert, awake, oriented x 3 and moves all extremities Comment:: Poor insight to condition and treatment plan; neurovascularly intact in his legs grossly Assessment and Plan *Assessment and plan (1) Acute on chronic heart failure with preserved ejection fraction (HFpEF): Status: Acute Category: Medical Code(s): I50.33 - Acute on chronic diastolic (congestive) heart failure (2) Acute exacerbation of chronic obstructive pulmonary disease: Status: Acute Category: Medical Code(s): J44.1 - Chronic obstructive pulmonary disease with (acute) exacerbation (3) Atrial fibrillation with rapid ventricular response: Status: Acute Category: Medical Code(s): I48.91 - Unspecified atrial fibrillation (4) Myocardial injury: Status: Acute Category: Medical Code(s): I5A - Non-ischemic myocardial injury (non-traumatic) (5) CAD (coronary artery disease): Status: Acute Category: Medical Code(s): I25.10 - Atherosclerotic heart disease of [place] coronary artery without angina pectoris (6) Sleep apnea: Status: Chronic Category: Medical Code(s): G47.30 - Sleep apnea, unspecified (7) CKD stage 3a, GFR 45-59 ml/min: Status: Acute Category: Medical Code(s): N18.31 - Chronic kidney disease, stage 3a (8) Diabetes mellitus: Status: Chronic Qualifiers: Diabetes mellitus type: type 1 Diabetes mellitus complication status: with other specified complication Qualified Code(s): E10.69 - Type 1 diabetes mellitus with other specified complication Category: Medical Code(s): E11.9 - Type 2 diabetes mellitus without complications (9) Iron deficiency anemia: Status: Acute Category: Medical Code(s): D50.9 - Iron deficiency anemia, unspecified (10) Morbid obesity with BMI of 40.0-44.9, adult: Status: Acute Category: Medical Code(s): E66.01 - Morbid (severe) obesity due to excess calories; Z68.41 - Body mass index [BMI] 40.0-44.9, adult Plan This is an 84-year-old male with morbid obesity, coronary artery disease, HFpEF and COPD who presents with shortness of air and was found to be in A-fib with RVR with elevated troponin and proBNP. Showing improvement with treatment for CHF exacerbation. Plan to continue antibiotics and diuresis. Necessitating cardiology consultation, they will see him in the next day or 2. Problems addressed as follows: Myocardial injury type II A-fib with RVR assess Coronary artery disease Acute on chronic HFpEF [id number]. Rate controlled. Discontinue telemetry. Lipitor 40 mg nightly, Bumex 1 mg IV twice daily today, de-escalate to once daily tomorrow. Continue carvedilol 3.125 mg twice daily -Continue spironolactone 25 mg daily, irbesartan 75 mg daily Transition from Lovenox therapeutic dosing back to Eliquis renally dosed -Troponin trending down. Peaked at 0.35, decreased to 0.25. Cardiology consultation, will see patient in the morning. Previous echo (09/2021) EF 50%, LVH, grade 2 diastolic dysfunction Echocardiogram pending -Repeat proBNP today down to 6900 from 24,000. -Responding well to diuresis. Monitoring electrolytes closely. Magnesium 2.3, potassium 3.8. Kidney function at the upper end of his baseline range at 2.2. BUN 43. Making good urine. Blackmon to stay in today, anticipate removal tomorrow. 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 Currently on 3 L. Baseline 3 to 4 L. DuoNebs as needed every 6 hours. Continue azithromycin and ceftriaxone for respiratory infection component, will complete 5 days. Prednisone 40 mg daily White count improved from 12.3-8.3 today. Chronic kidney disease stage IIIa Baseline 1.5-2.0. Creatinine 2.2 today. Repeat CBC, CMP, magnesium ordered for the morning. Monitoring BMP this afternoon given diuresis, electrolyte shifts, and kidney dysfunction. Iron deficiency anemia Iron studies B12 evaluation Iron replacement therapy with ascorbic acid Diabetes Additional 10 units of glargine this morning. Increase nighttime long-acting insulin 25 units. Increase sliding scale to high intensity. Glucoses remain elevated in the 3-4 100s. BPH/urinary retention: Continue tamsulosin 0.4 mg HS initiate finasteride 5 mg nightly Full code Diabetic diet
[2024-04-01] MEDS: DOCUSATE SODIUM 100 MG CAPSULE PO (08:14)
[2024-04-01] MEDS: predniSONE 20MG TAB 40 MG PO (08:14)
[2024-04-01] MEDS: CLOPIDOGREL 75MG TAB 75 MG PO (08:14)
[2024-04-01] MEDS: PANTOPRAZOLE 40MG TABLET 40 MG PO (08:14)
[2024-04-01] MEDS: EMPAGLIFLOZIN 10MG TABLET 10 MG PO (08:14)
[2024-04-01] MEDS: SPIRONOLACTONE 25MG TABLET 25 MG PO (08:14)
[2024-04-01] MEDS: IRBESARTAN 75MG TABLET 75 MG PO (08:14)
[2024-04-01] MEDS: FERROUS SULFATE 325MG TABLET 325 MG PO (08:14)
[2024-04-01] MEDS: ENOXAPARIN 100MG/ML SYRINGE 95 MG SQ (08:14)
[2024-04-01] MEDS: CARVEDILOL 3.125MG TABLET 3.125 MG PO ×2 (08:14→20:58)
[2024-04-01] MEDS: ASCORBIC ACID 500MG TAB 500 MG PO (08:14)
[2024-04-01] MEDS: INSULIN GLARGINE 100 UNITS/ML 3ML FLEXPEN 10 UNIT SQ (08:15)
[2024-04-01 08:19] LABS: Alanine Aminotransferase 37 U/L (12-78); Albumin Level 3.3 g/dl (3.5-5.0); Alkaline Phosphatase 144 U/L (38-126); Anion Gap 11.8 mEq/L (5-15); Aspartate Amino Transferase 61 U/L (17-59); Bilirubin,Total 0.6 mg/dl (0.2-1.3); Blood Urea Nitrogen 43 mg/dl (9-20); Calcium 8.4 mg/dl (8.4-10.2); Carbon Dioxide 25 mmol/L (22.0-30.0); Chloride 104 mmol/L (98-107); Creatinine Clearance Estimated 35 mL/min (50-200); Estimated Glomerular Filt Rate 29 ml/min (>60); GFR (African American) 35 ML/MIN (>60); Globulin 3.2 g/dL (1.3-3.2); Glucose 379 mg/dl (74-100); Magnesium 2.3 mg/dl (1.6-2.3); Potassium 3.8 mmoL/L (3.5-5.1); Sodium 137 mmol/L (136-145); Total Protein,Serum 6.5 g/dl (6.3-8.2)
[2024-04-01] MEDS: BUMETANIDE 1MG/4ML VIAL 1 MG IV ×2 (08:22→16:04)
[2024-04-01 08:25] LABS: NT Pro Brain Natriuretic Pep. 6980 pg/mL (0-450)
[2024-04-01 11:10] LABS: POC Glucose,Bedside 435 (70-110)
--- NOTE | 2024-04-01 12:41 | HMH.PTEV ---
Physical Therapy Evaluation Rehab PT IP Evaluation Start: 04/03/24 07:00 Freq: ONCE Status: Active Protocol: Document 04/01/24 12:36 PHORBEN (Rec: 04/01/24 12:41 PHORNE [id number]) Subjective/History History History 84 yowm adm to [facility] with PNA and a-fib. He has increased SOA with COPD exac as well. He reports he lives with his and son, 1 ARAM the home and he uses a RW or SC for ambulation at all times at baseline. He reports wearing oxygen intermittently at home. He has PMH as follows: Morbid obesity with BMI of 40. 0-44.9, adult CKD stage 3a, GFR 45-59 ml/min Iron deficiency anemia Multiple pulmonary nodules Chronic hypoxemic respiratory failure COPD (chronic obstructive pulmonary disease) Pulmonary emphysema Stopped smoking with greater than 30 pack year history Lung nodule Dyspnea on exertion Sleep apnea Diabetes mellitus Abnormal EKG Atypical angina JUAN FRANCISCO (cerebral atherosclerosis) Edema Pre-op evaluation Claudication Paroxysmal atrial fibrillation HHD (hypertensive heart disease) Subjective Subjective Currently he reports feeling tired, because I haven't slept any, but he does agree to mobility assessment. New diagnosis of cancer in past 12 No months? Rehab PT IP Eval Objective Appearance Patient Behavior Appropriate Patient Orientation Person,Place,Time Difficulty following instructions none Speech Pattern Clear Ambulation Patient Able to Ambulate Yes Ambulation Observation IP General Gait Pattern Observation Wide Based Gait,Shuffling Step Ambulation Distance (feet) 20 Ambulation Assistive Device Rolling Walker Ambulation Ability Supervision/Stand by Balance Ability to Arise Able, uses arms to help Sitting Balance Steady, safe Standing Balance Steady, wide stance Dynamic Sitting Balance Ability Good Dynamic Standing Balance Ability Fair Transfers Bed Transfer Ability Supervision/Stand by Chair Transfer Ability Supervision/Stand by Sit to Stand Bed Transfer Ability Supervision/Stand by Sit to Stand Chair Transfer Ability Supervision/Stand by Rehab PT IP prob,goals,plan Problems Date of Evaluation: 04/01/24 PT IP Problems Bed Mobility,Transfers,Gait Plan PT Intervention Plan Bed Mobility,Transfers,Gait, Therapeutic Exercise PT Plan Frequency Daily Duration LOS Discharge Goals Bed Transfer Ability Independent Sit to Stand Chair Transfer Ability Independent Ambulation Assistive Device Rolling Walker Ambulation Distance (feet) 30 Discharge Plan PT Discharge Plan Pt is currently most appropriate to return home once medically stable, recommend home health therapy after d/c. Skilled therapy is necessary to aid increased strength and improved ambulation to return pt to PLOF. Eval Complexity Eval Charge Codes 97740 - High Complexity PHYSICIAN CERTIFICATION: I certify the specified therapy services for Jarrett Pemberton are required, authorized, and reviewed every 30 days.
[2024-04-01 15:58] LABS: POC Glucose,Bedside 394 (70-110)
[2024-04-01 18:24] LABS: Chloride 101 mmol/L (98-107); Sodium 135 mmol/L (136-145)
[2024-04-01 18:25] LABS: Potassium 4.5 mmoL/L (3.5-5.1)
[2024-04-01 18:27] LABS: Blood Urea Nitrogen 52 mg/dl (9-20); Creatinine Clearance Estimated 31 mL/min (50-200); Estimated Glomerular Filt Rate 25 ml/min (>60); GFR (African American) 30 ML/MIN (>60)
[2024-04-01 18:28] LABS: Anion Gap 11.5 mEq/L (5-15); Calcium 8.6 mg/dl (8.4-10.2); Carbon Dioxide 27 mmol/L (22.0-30.0)
[2024-04-01 18:35] LABS: Glucose 456 mg/dl (74-100)
--- NOTE | 2024-04-01 19:19 | PC.NURSE ---
lab called with glucose of 456. this nurse has monitored meals and snacks t/o the day and pt has been compliant with the diabetic diet. spoke with son about pts insulin regimen at home and he stated the pt takes U-R 500 150units in the morning and 20 units at night. son said the U-R 500 is [facility] . notified wai, NEW ORDER OF HUMALOG 15UNITS ONCE NOW, then recheck in 2 hrs. oncoming nurse Patel sam.
[2024-04-01] MEDS: humaLOG 100 UNITS/ML 10ML VIAL (SSI) 15 UNIT SQ (19:31)
--- NOTE | 2024-04-01 20:41 | EXP.EVENT.NO ---
Noting that the patient is on a special insulin that is 5 times stronger than regular Humulin. Normally taking 500 units of regular insulin in the 100 units of regular insulin at night the equivalent of his present U-500 dose. Checking old records blood sugars been greater than 300 for a couple of years.. Patient now is averaging above 450. Will add increase amount of one-time Humulin R and will recheck sugars in 3 hours and continue present sliding scale. Have been in to see the patient talked with him he is alert and oriented he has been eating and drinking well showing no signs of respiratory difficulty no edema in the lower extremities Patient nurse has been updated on plan to use the extra 50 units of Humulin R at 9 PM and will recheck sugars at midnight
[2024-04-01 20:43] LABS: POC Glucose,Bedside 470 (70-110)
[2024-04-01] MEDS: CEFTRIAXONE SODIUM 1 GM in 0.9 % SODIUM CHLORIDE 50 ML IV (20:56)
[2024-04-01] MEDS: APIXABAN 5MG TABLET 2.5 MG PO (20:57)
[2024-04-01] MEDS: ATORVASTATIN 40MG TABLET 40 MG PO (20:57)
[2024-04-01] MEDS: humaLOG 100 UNITS/ML 10ML VIAL (SSI) 50 UNIT SQ (20:57)
[2024-04-01] MEDS: INSULIN GLARGINE 100 UNITS/ML 3ML FLEXPEN 35 UNIT SQ (20:57)
[2024-04-01] MEDS: FINASTERIDE 5MG TABLET 5 MG PO (20:58)
--- NOTE | 2024-04-01 21:39 | PC.NURSE ---
Provider notified of a blood glucose of 470. Orders were given to give 50 units of humalog along with sliding scale of 20 units of humalog and 35 units of latus pen. Was ordered to recheck sugar at midnight and update him.
[2024-04-02] VITALS (10 sets, daily range): BP systolic 116–167; BP diastolic 62–74; PULSE 68–80; RESP 18–24; TEMP 36.4–36.8; O2SAT 92–98; BMI 32.3
[2024-04-02 01:16] LABS: POC Glucose,Bedside 207 (70-110)
[2024-04-02 01:16] LABS: POC Glucose,Bedside 256 (70-110)
[2024-04-02 03:05] LABS: POC Glucose,Bedside 115 (70-110)
[2024-04-02 05:09] LABS: POC Glucose,Bedside 77 (70-110)
[2024-04-02] MEDS: DEXTROSE 50% 50ML SYRINGE (CRASH CART) 50 ML IVP (05:09)
[2024-04-02 06:17] LABS: POC Glucose,Bedside 157 (70-110)
[2024-04-02 06:20] LABS: Basophils % 0.1 % (0.1-2.0); Eosinophils # 0.1 K/mm3 (0.0-0.4); Eosinophils % 0.5 % (0.1-12.0); Hematocrit 37.2 % (42.0-52.0); Hemoglobin 11.3 g/dL (14.1-18.0); Lymphocytes # 0.9 K/mm3 (0.7-4.5); Lymphocytes % 8.5 % (10-50); Mean Corpuscular HGB Conc 30.5 g/dL (31.8-35.4); Mean Corpuscular Hemoglobin 26.1 pg (27.0-31.2); Mean Corpuscular Volume 85.7 fl (80-94); Mean Platelet Volume 8.6 fl (7.4-10.4); Monocytes # 0.5 K/mm3 (0.1-1.0); Monocytes % 4.4 % (1.7-9.3); Neutrophils # 8.9 K/mm3 (1.8-7.8); Neutrophils % 86.5 % (37.0-80.0); Platelet Count 295 K/mm3 (142-424); Red Blood Count 4.33 M/mm3 (4.60-6.20); Red Cell Distribution Width 17.7 % (11.5-17.5); White Blood Count 10.3 K/mm3 (4.8-10.8)
[2024-04-02 06:21] LABS: MANUAL DIFFERENTIAL MANUAL DIFFERENTIAL (MANUAL DIFF)
[2024-04-02] MEDS: AZITHROMYCIN 500 MG in 0.9 % SODIUM CHLORIDE 250 ML 250 MG IV (06:21)
[2024-04-02] MEDS: IPRATROPIUM/ALBUTEROL 3 ML NEB IH ×3 (06:27→18:10)
[2024-04-02] MEDS: BUDESONIDE 0.5MG/2ML NEB 0.5 MG IH ×2 (06:27→18:10)
[2024-04-02 06:30] LABS: Magnesium 2.6 mg/dl (1.6-2.3)
--- NOTE | 2024-04-02 06:36 | ECG_ITS ---
APPROVED REPORT Exam: Resting ECG HR:69 bpm ECG Measurements Heart Rate 69 AXES MT 119 P 260 QRSd 150 QRS 57 QT 466 T 177 QTc 485 Conclusion JUNCTIONAL RHYTHM WITH OCCASIONAL SUPRAVENTRICULAR PREMATURE COMPLEXES LEFT BUNDLE BRANCH BLOCK [120+ ms QRS DURATION, 80+ ms Q/S IN V1/V2, 85+ ms R IN I/aVL/V5/V6] ABNORMAL ECG UNCONFIRMED REPORT Electronically signed by : Rom Brady MD 04/02/2024 19:47:45
[2024-04-02 06:42] LABS: Chloride 103 mmol/L (98-107)
[2024-04-02 06:43] LABS: Potassium 3.7 mmoL/L (3.5-5.1); Sodium 139 mmol/L (136-145)
[2024-04-02 06:45] LABS: Blood Urea Nitrogen 57 mg/dl (9-20); Creatinine Clearance Estimated 35 mL/min (50-200); Estimated Glomerular Filt Rate 29 ml/min (>60); GFR (African American) 35 ML/MIN (>60)
[2024-04-02 06:46] LABS: Alanine Aminotransferase 35 U/L (12-78); Albumin/Globulin Ratio 1.2 (1.1-1.8); Alkaline Phosphatase 135 U/L (38-126); Anion Gap 8.7 mEq/L (5-15); Aspartate Amino Transferase 56 U/L (17-59); Bilirubin,Total 0.5 mg/dl (0.2-1.3); Calcium 8.4 mg/dl (8.4-10.2); Carbon Dioxide 31 mmol/L (22.0-30.0); Globulin 2.5 g/dL (1.3-3.2); Glucose 153 mg/dl (74-100); Total Protein,Serum 5.5 g/dl (6.3-8.2)
--- NOTE | 2024-04-02 06:48 | PC.NURSE ---
Patient has remained A&OX3. Pt was on c-pap for around an hour before taking it off. He has remained on 3L with no issues. Upon arrival pt sugar was 470. Provider notified and was ordered to give an addition 50 units of humalog along with the sliding scale. Monitored and updated provider throughout the shift on sugars. He got to 115 and 2 orange juices were provided. Sugar was still decreasing so an order D50 was obtained. Sugars have reamined around 160 since. Blackmon catheter has remained in place and drained well. No complaints at this time, call light within reach.
[2024-04-02 06:53] LABS: Lymphocytes % 6 % (10-50); Monocytes % 4 % (2-9); Neutrophils % 90 % (42-76); Total Cells Counted 100
[2024-04-02 06:54] LABS: Platelet Estimate Normal; RBC Morphology Normal
--- NOTE | 2024-04-02 07:30 | XR_ITS ---
PROCEDURE INFORMATION: Exam: XR Chest Exam date and time: 04/02/2024 7:35 AM Age: 84 years old Clinical indication: Cough; Additional info: Eval pna vs edema TECHNIQUE: Imaging protocol: Radiologic exam of the chest. Views: 1 view. COMPARISON: CT CHEST WO CON 03/31/2024 4:49 AM FINDINGS: Lungs: Opacity in the left mid lung and left base may represent atelectasis or pneumonia. Pleural spaces: Unremarkable. No pleural effusion. No pneumothorax. Heart/Mediastinum: Unremarkable. No cardiomegaly. Bones/joints: Median sternotomy IMPRESSION: Opacity in the left mid lung and left base may represent atelectasis or pneumonia.
[2024-04-02] MEDS: APIXABAN 5MG TABLET 2.5 MG PO ×2 (08:49→20:41)
[2024-04-02] MEDS: ASCORBIC ACID 500MG TAB 500 MG PO (08:50)
[2024-04-02] MEDS: CARVEDILOL 3.125MG TABLET 3.125 MG PO ×2 (08:50→20:41)
[2024-04-02] MEDS: CLOPIDOGREL 75MG TAB 75 MG PO (08:50)
[2024-04-02] MEDS: EMPAGLIFLOZIN 10MG TABLET 10 MG PO (08:50)
[2024-04-02] MEDS: FERROUS SULFATE 325MG TABLET 325 MG PO (08:50)
[2024-04-02] MEDS: DOCUSATE SODIUM 100 MG CAPSULE PO (08:50)
[2024-04-02] MEDS: IRBESARTAN 75MG TABLET 75 MG PO (08:51)
[2024-04-02] MEDS: TAMSULOSIN 0.4MG CAPSULE 0.4 MG PO (08:51)
[2024-04-02] MEDS: PANTOPRAZOLE 40MG TABLET 40 MG PO (08:51)
[2024-04-02] MEDS: predniSONE 20MG TAB 40 MG PO (08:51)
[2024-04-02] MEDS: SPIRONOLACTONE 25MG TABLET 25 MG PO (08:52)
[2024-04-02] MEDS: BUMETANIDE 1 MG TABLET PO (08:53)
[2024-04-02] MEDS: humaLOG 100 UNITS/ML 10ML VIAL (SSI) 10 UNIT SQ ×2 (11:21→20:57)
[2024-04-02] MEDS: humaLOG 100 UNITS/ML 10ML VIAL (SSI) SQ ×3 (11:22→22:59)
[2024-04-02 11:33] LABS: POC Glucose,Bedside 334 (70-110)
--- NOTE | 2024-04-02 13:32 | EXP.ACUTE.PN ---
Subjective *Date: 04/02/24 *Time: 13:32 Interval history: Stable on 3 L oxygen overnight. No fever. No nausea or vomiting or chest pain. Diuresing well. Tolerating p.o. intake. Continues to have elevated glucose due to insulin resistance and poorly controlled diabetes. Medical Exam Vital signs and Labs for Last 24 Hours: Vital Signs Temp Pulse Pulse Resp BP Pulse Ox O2 Del Method 04/02/24 13:15 77 04/02/24 13:15 77 04/02/24 13:15 95 Nasal Cannula 04/02/24 12:00 80 146/66 H 96 Nasal Cannula 04/02/24 11:00 Nasal Cannula 04/02/24 09:00 Nasal Cannula 04/02/24 07:41 97.5 F L 76 24 138/73 92 L Nasal Cannula 04/02/24 07:20 Nasal Cannula 04/02/24 06:39 Nasal Cannula 04/02/24 06:29 69 04/02/24 06:29 69 04/02/24 06:29 95 Nasal Cannula 04/02/24 05:00 Nasal Cannula 04/02/24 04:00 98.3 F 68 18 155/69 H 94 L Nasal Cannula 04/02/24 03:14 04/02/24 03:00 Nasal Cannula 04/02/24 01:00 Nasal Cannula 04/02/24 00:11 72 04/02/24 00:11 73 04/02/24 00:00 97.7 F 79 22 152/74 H 98 Nasal Cannula 04/01/24 23:10 04/01/24 23:00 CPAP 04/01/24 21:00 Nasal Cannula 04/01/24 20:00 Nasal Cannula 04/01/24 19:37 97.8 F 68 17 131/75 92 L Nasal Cannula, Non-Rebreather 04/01/24 19:22 89 L Room Air 04/01/24 19:21 Nasal Cannula 04/01/24 19:21 77 04/01/24 19:21 71 04/01/24 18:44 Nasal Cannula 04/01/24 17:00 Room Air 04/01/24 15:00 Room Air O2 Flow Rate FiO2 04/02/24 13:15 04/02/24 13:15 04/02/24 13:15 3 04/02/24 12:00 3 04/02/24 11:00 3 04/02/24 09:00 3 04/02/24 07:41 3 04/02/24 07:20 3 04/02/24 06:39 3 04/02/24 06:29 04/02/24 06:29 04/02/24 06:29 3 04/02/24 05:00 3 04/02/24 04:00 3 04/02/24 03:14 32 04/02/24 03:00 3 04/02/24 01:00 3 04/02/24 00:11 04/02/24 00:11 04/02/24 00:00 3 04/01/24 23:10 4 04/01/24 23:00 04/01/24 21:00 3 04/01/24 20:00 3 04/01/24 19:37 3 04/01/24 19:22 04/01/24 19:21 3 32 04/01/24 19:21 04/01/24 19:21 04/01/24 18:44 3 04/01/24 17:00 04/01/24 15:00 Intake and Output 04/01/24 04/02/24 04/02/24 23:59 07:59 15:59 Intake Total 270 / 1440 1070 / 1430 360 / 1430 Output Total 1100 / 3350 700 / 700 0 / 700 Balance -830 / -1910 370 / 730 360 / 730 Intake: Intake, Oral Amount 270 / 1340 770 / 1130 360 / 1130 Intake, Total IV Amount 300 / 300 Azithromycin 500 mg In 0.9 % 250 / 250 Sodium Chloride 250 ml @ 250 mls/hr IV Q24H [facility] Rx#: [id number] Ceftriaxone Sodium 1 gm In 0.9 50 / 50 % Sodium Chloride 50 ml @ 100 mls/hr IV Q24H [facility] Rx#:[id number] Output: Output, Urine Amount 1100 / 3350 700 / 700 0 / 700 Other: Number of Unmeasured Voids 1 Weight 96.933 kg 96.9 kg Patient Weight 04/02/24 23:59 Weight 96.9 kg Laboratory Results - last 24 hr 04/01/24 15:51: POC Glucose 394 H* 04/01/24 18:10: Sodium 135 L, Potassium 4.5, Chloride 101, Carbon Dioxide 27, Anion Gap 11.5, BUN 52 H, Creatinine 2.50 H, Estimated Creat Clear 31, Estimated GFR 25 L, Est GFR ( Amer) 30 L, Glucose 456 H* D, Calcium 8.6 04/01/24 20:30: POC Glucose 470 H* 04/02/24 00:08: POC Glucose 256 H 04/02/24 00:47: POC Glucose 207 H 04/02/24 02:54: POC Glucose 115 H 04/02/24 05:02: POC Glucose 77 04/02/24 06:04: WBC 10.3, RBC 4.33 L, Hgb 11.3 L, Hct 37.2 L, MCV 85.7, MCH 26.1 L, MCHC 30.5 L, RDW 17.7 H, Plt Count 295, MPV 8.6, Neut % (Auto) 86.5 H, Lymph % (Auto) 8.5 L, [place] % (Auto) 4.4, Eos % (Auto) 0.5, Baso % (Auto) 0.1, Neut # (Auto) 8.9 H, Lymph # (Auto) 0.9, [place] # (Auto) 0.5, Eos # (Auto) 0.1, Baso # (Auto) 0.0, Total Counted 100, Neutrophils % (Manual) 90 H, Lymphocytes % (Manual) 6 L, Monocytes % (Manual) 4, Platelet Estimate Normal, RBC Morphology Normal, Sodium 139, Potassium 3.7, Chloride 103, Carbon Dioxide 31 H, Anion Gap 8.7, BUN 57 H, Creatinine 2.20 H, Estimated Creat Clear 35, Estimated GFR 29 L, Est GFR ( Amer) 35 L, Glucose 153 H D, POC Glucose 157 H, Calcium 8.4, Magnesium 2.6 H D, Total Bilirubin 0.5, AST 56, ALT 35, Alkaline Phosphatase 135 H, Total Protein 5.5 L, Albumin 3.0 L, Globulin 2.5, Albumin/Globulin Ratio 1.2 04/02/24 11:21: POC Glucose 334 H* I & O for Labs for Last 24 Hours: Intake & Output 03/30/24 03/31/24 04/01/24 04/02/24 23:59 23:59 23:59 23:59 Intake Total 420 / 710 1040 / 1440 1430 / 1430 Output Total 1800 / 2600 3350 / 3350 700 / 700 Balance -1380 / -1890 -2310 / -1910 730 / 730 Weight 96.388 kg 96.434 kg 96.9 kg Microbiology Reports for the Last 24 Hours: Microbiology 03/31/24 10:41 Sputum - Expectorated Sputum Gram Stain - Final 03/31/24 10:41 Sputum - Expectorated Sputum Sputum Culture - Preliminary Gram Positive Cocci Gram Positive Cocci#2 03/31/24 02:31 Blood Blood Culture - Preliminary NO GROWTH AFTER 48 HOURS 03/31/24 02:04 Blood Blood Culture - Preliminary NO GROWTH AFTER 48 HOURS Constitutional: Present no acute distress, obese, chronically ill appearing and cooperative Head: Present atraumatic and normocephalic ENT: Present normal exam Neck: Present normal inspection Respiratory: Present crackles (Bases) and normal respiratory effort; Absent accessory muscle use, rhonchi or wheezes Cardiac: Present Reg Rate and Rhythm GI: Present soft and normal bowel sounds; Absent distention or tenderness Extremities: Present normal inspection and full ROM; Absent edema Skin: Present intact; Absent erythema Neuro: Present Grossly Intact, alert, awake, oriented x 3 and moves all extremities Comment:: Poor insight to condition and treatment plan; neurovascularly intact in his legs grossly Assessment and Plan *Assessment and plan (1) Acute on chronic heart failure with preserved ejection fraction (HFpEF): Status: Acute Category: Medical Code(s): I50.33 - Acute on chronic diastolic (congestive) heart failure (2) Acute exacerbation of chronic obstructive pulmonary disease: Status: Acute Category: Medical Code(s): J44.1 - Chronic obstructive pulmonary disease with (acute) exacerbation (3) Atrial fibrillation with rapid ventricular response: Status: Acute Category: Medical Code(s): I48.91 - Unspecified atrial fibrillation (4) Myocardial injury: Status: Acute Category: Medical Code(s): I5A - Non-ischemic myocardial injury (non-traumatic) (5) CAD (coronary artery disease): Status: Acute Category: Medical Code(s): I25.10 - Atherosclerotic heart disease of [place] coronary artery without angina pectoris (6) Sleep apnea: Status: Chronic Category: Medical Code(s): G47.30 - Sleep apnea, unspecified (7) CKD stage 3a, GFR 45-59 ml/min: Status: Acute Category: Medical Code(s): N18.31 - Chronic kidney disease, stage 3a (8) Diabetes mellitus: Status: Chronic Qualifiers: Diabetes mellitus type: type 1 Diabetes mellitus complication status: with other specified complication Qualified Code(s): E10.69 - Type 1 diabetes mellitus with other specified complication Category: Medical Code(s): E11.9 - Type 2 diabetes mellitus without complications (9) Iron deficiency anemia: Status: Acute Category: Medical Code(s): D50.9 - Iron deficiency anemia, unspecified (10) Morbid obesity with BMI of 40.0-44.9, adult: Status: Acute Category: Medical Code(s): E66.01 - Morbid (severe) obesity due to excess calories; Z68.41 - Body mass index [BMI] 40.0-44.9, adult Plan This is an 84-year-old male with morbid obesity, coronary artery disease, HFpEF and COPD who presents with shortness of air and was found to be in A-fib with RVR with elevated troponin and proBNP. Showing improvement with treatment for CHF exacerbation. Plan to continue antibiotics and diuresis. Cardiology to see patient in the morning. Problems addressed as follows: Myocardial injury type II A-fib with RVR assess Coronary artery disease Acute on chronic HFpEF [id number]. Rate controlled. Lipitor 40 mg nightly, Bumex 1 mg p.o. once daily. Has diuresed well. -4 L since admission. Continue carvedilol 3.125 mg twice daily Continue spironolactone 25 mg daily, irbesartan 75 mg daily Continue Eliquis 2.5 mg twice daily Troponin trended down. Peaked at 0.35, decreased to 0.25. Repeat troponin level ordered for the morning Cardiology consultation, will see patient in the morning. Previous echo (09/2021) EF 50%, LVH, grade 2 diastolic dysfunction Echocardiogram pending Magnesium 2.6, potassium 3.7. Repeat CBC, CMP, magnesium ordered for the morning. Remove [place] today. 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 Currently on 3 L. Baseline 3 to 4 L. DuoNebs as needed every 6 hours. Continue azithromycin and ceftriaxone for respiratory infection component, will complete 5 days. Prednisone 40 mg daily White count normal at 10.3. Chronic kidney disease stage IIIa Baseline 1.5-2.0. Creatinine 2.2 today, BUN 57. Appropriate bump given need to drive patient out due to his heart failure. Iron deficiency anemia Hemoglobin 11.3. TIBC 456 iron saturation 7.6%. Iron level 35. Will administer Venofer 200mg x 1. Diabetes Additional 10 units of glargine this morning. Increase nighttime long-acting insulin 25 units. Increase sliding scale to high intensity. Glucoses remain elevated in the 3-4 100s. BPH/urinary retention: Continue tamsulosin 0.4 mg HS initiate finasteride 5 mg nightly Full code Diabetic diet
[2024-04-02] MEDS: IRON SUCROSE COMPLEX 200 MG in 0.9 % SODIUM CHLORIDE 100 ML 220 MG IV (14:22)
[2024-04-02] MEDS: humaLOG 100 UNITS/ML 10ML VIAL (SSI) 20 UNIT SQ (16:12)
[2024-04-02 16:33] LABS: POC Glucose,Bedside 407 (70-110)
--- NOTE | 2024-04-02 16:48 | PC.NURSE ---
Pt A&Ox4. Remains on 3L O2 NC. F/C was DC this AM. Pt has ambulated to BR to void with standby assist and walker. FSBS have been elevated. 334, 407. Medication administered per mar. Call light within reach. Family in room.
[2024-04-02] MEDS: CEFTRIAXONE SODIUM 1 GM in 0.9 % SODIUM CHLORIDE 50 ML IV (20:41)
[2024-04-02] MEDS: FINASTERIDE 5MG TABLET 5 MG PO (20:41)
[2024-04-02] MEDS: ATORVASTATIN 40MG TABLET 40 MG PO (20:42)
[2024-04-02] MEDS: INSULIN GLARGINE 100 UNITS/ML 3ML FLEXPEN 45 UNIT SQ (20:55)
[2024-04-02] MEDS: humaLOG 100 UNITS/ML 10ML VIAL (SSI) 25 UNIT SQ (20:57)
[2024-04-02 21:11] LABS: Glucose,Random 541 mg/dL (74-100)
--- NOTE | 2024-04-02 21:39 | PC.NURSE ---
Reviewed lab confirmed BS of 541 with Willian Parrish APRN and insuling given including the 45 units of pts long acting and 35 units of Humalog around 9pm. Plan to recheck FSBS and administer SS insulin at that point using same scale.
[2024-04-03] VITALS (10 sets, daily range): BP systolic 137–162; BP diastolic 47–82; PULSE 58–82; RESP 16–21; TEMP 36.5–36.8; O2SAT 90–95; BMI 32.0
[2024-04-03] MEDS: IPRATROPIUM/ALBUTEROL 3 ML NEB IH ×4 (00:26→23:00)
[2024-04-03 03:30] LABS: POC Glucose,Bedside 565 (70-110)
--- NOTE | 2024-04-03 04:12 | PC.NURSE ---
Pt is A/O X 3. 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 02 at 3 liters / nc. VSS. At 9pm, pts FSBS was at 565, lab confirmed at 541. Pt was given 45 units of Lantus and 35 units of Humalog at that time. Recheck FSBS at 2300 was 390, 15 units of Humalog given at that time. Pt has been able to ambulate to BR with walker and assist of 1. stayed with pt through the night.
[2024-04-03] MEDS: AZITHROMYCIN 500 MG in 0.9 % SODIUM CHLORIDE 250 ML 250 MG IV (05:35)
--- NOTE | 2024-04-03 06:00 | CA_ITS ---
APPROVED REPORT EXAM: Comprehensive 2D, Doppler, and color-flow Echocardiogram Cross Tie Maker: JASPER Bravo, RVS Ht: 5 ft 7 in Wt: 280lbs BSA: 2.33 BP: 146/66 mmHg Indications: CAD, JUAN FRANCISCO, OHS-CABG, Coronary stents, DM , COPD, KRAMER, Ex-smoker Echo Enhancing Agent Comments: TDS: due to lung impedence/large body habitus 2D Dimensions Left Atrium 3.17 cm M: 3.0 - 4.0 M-Mode Dimensions LA Diam 4.60 cm (1.9-4.0) LVDd 6.50 cm (3.5-5.7) LVDs 3.95 cm (3.5-5.7) IVSd 1.27 cm (0.6-1.1) PWd 1.10 cm (0.6-1.1) EF (Teich) 68.60% EPSs 0.64 cm FS 39.20% EDV (Teich) 216.00 mL TAPSE 1.27 (<1.7) ESV (Teich) 67.90 mL LV Diastology E Decel Time 163 (160-240 msec) E/A Ratio 0.87 MED A' 6.90 cm/s LAT A' 7.30 cm/s Aortic Valve IVANIA Index 0.74 cm2/m2 AoV Peak Kristofer. 147.0 (50-130 cm/s) AO Peak GR. 8.70 mmHg AO Mean GR. 4.30 (<5 mmHg) AO VTI 33.4 (18-25 cm) IVANIA (VTI) 1.78 (2.5-4.5 cm2) Mitral Valve MV A Velocity 110.0 (40-130 cm/s) E/A Ratio 0.87 Pulmonary Valve PV Peak Velocity 122.0 (50-150 cm/s) Tricuspid Valve TR P. Velocity 289.00 cm/s Left Ventricle The left ventricle is normal size. 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 Left ventricular systolic function is moderate to severely decreased. Proximal septal thickening is noted. There is severe hypokinesis of the inferior LV wall. There is also akinesis of the inferoseptal LV wall. The septum is asynchronous. Grade 2 diastolic dysfunction is present. LVEF is 30%. Right Ventricle The right ventricle is normal size. The right ventricular systolic function is normal. Atria The left atrium is mildly dilated. The right atrium size is normal. There is no Doppler evidence of interatrial shunt. Aortic Valve The aortic valve is mildly thickened. There is no aortic valvular stenosis. Trace aortic regurgitation. Mitral Valve The mitral valve is normal in structure. No evidence of mitral valve stenosis. Trace mitral valve regurgitation noted. Tricuspid Valve The tricuspid valve leaflets are thin and pliable. Trace tricuspid regurgitation. There is insufficient TR jet to estimate RVSP. Pulmonic Valve The pulmonary valve is normal in structure. Trace pulmonic regurgitation. Great Vessels The aortic root is normal in size. The ascending aorta not well-visualized. IVC is normal in size and collapses >50% with inspiration. Pericardium Trivial, anterior pericardial effusion is present. No echo indications of tamponade. Other Information Study Quality: Technically Difficult Conclusion Technically difficult study due to poor acoustic windows. Moderate to severe reduction in LV systolic function (LVEF 30%). Grade 2 diastolic dysfunction. 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 Severe hypokinesis of the inferior LV wall. There is also akinesis of the inferoseptal LV wall. Asynchronous septum. Mild LA dilation. No significant valvular stenosis or regurgitation. Trivial, anterior pericardial effusion is present. No echo indications of tamponade. Electronically signed by : Elisha Pak MD 04/03/2024 09:42:43
[2024-04-03 06:19] LABS: POC Glucose,Bedside 164 (70-110)
[2024-04-03 06:23] LABS: Basophils % 0.2 % (0.1-2.0); Eosinophils % 0.1 % (0.1-12.0); Hematocrit 36.5 % (42.0-52.0); Hemoglobin 11.4 g/dL (14.1-18.0); Lymphocytes % 9.1 % (10-50); Mean Corpuscular HGB Conc 31.2 g/dL (31.8-35.4); Mean Corpuscular Volume 86.4 fl (80-94); Mean Platelet Volume 8.6 fl (7.4-10.4); Monocytes # 0.6 K/mm3 (0.1-1.0); Monocytes % 5.9 % (1.7-9.3); Neutrophils # 8.9 K/mm3 (1.8-7.8); Neutrophils % 84.8 % (37.0-80.0); Platelet Count 287 K/mm3 (142-424); Red Blood Count 4.22 M/mm3 (4.60-6.20); Red Cell Distribution Width 17.7 % (11.5-17.5); White Blood Count 10.5 K/mm3 (4.8-10.8)
[2024-04-03] MEDS: BUDESONIDE 0.5MG/2ML NEB 0.5 MG IH ×2 (06:31→18:19)
[2024-04-03 06:42] LABS: Magnesium 2.6 mg/dl (1.6-2.3)
--- NOTE | 2024-04-03 08:19 | EXP.PHA.PN ---
Subjective *Date: 04/03/24 *Time: 08:19 Medical Exam Vital signs and Labs for Last 24 Hours: Vital Signs Temp Pulse Pulse Resp BP Pulse Ox O2 Del Method 04/03/24 06:43 Nasal Cannula 04/03/24 05:00 Nasal Cannula 04/03/24 04:00 97.9 F 59 L 16 137/66 93 L 04/03/24 03:00 Nasal Cannula 04/03/24 01:00 Nasal Cannula 04/03/24 00:26 74 04/03/24 00:26 75 04/03/24 00:00 98.1 F 61 18 156/70 H 95 Nasal Cannula 04/02/24 23:00 Nasal Cannula 04/02/24 21:00 Nasal Cannula 04/02/24 20:00 98.1 F 71 18 167/70 H 92 L Nasal Cannula 04/02/24 19:48 Nasal Cannula 04/02/24 18:41 Nasal Cannula 04/02/24 18:10 75 04/02/24 18:10 78 04/02/24 18:10 94 L Nasal Cannula 04/02/24 16:46 Nasal Cannula 04/02/24 16:00 97.8 F 72 19 116/62 98 Nasal Cannula 04/02/24 15:00 Nasal Cannula 04/02/24 13:15 77 04/02/24 13:15 77 04/02/24 13:15 95 Nasal Cannula 04/02/24 13:00 Nasal Cannula 04/02/24 12:00 80 146/66 H 96 Nasal Cannula 04/02/24 11:00 Nasal Cannula 04/02/24 09:00 Nasal Cannula O2 Flow Rate 04/03/24 06:43 3 04/03/24 05:00 3 04/03/24 04:00 3 04/03/24 03:00 3 04/03/24 01:00 3 04/03/24 00:26 04/03/24 00:26 04/03/24 00:00 3 04/02/24 23:00 3 04/02/24 21:00 3 04/02/24 20:00 3 04/02/24 19:48 3 04/02/24 18:41 3 04/02/24 18:10 04/02/24 18:10 04/02/24 18:10 3 04/02/24 16:46 3 04/02/24 16:00 3 04/02/24 15:00 3 04/02/24 13:15 04/02/24 13:15 04/02/24 13:15 3 04/02/24 13:00 3 04/02/24 12:00 3 04/02/24 11:00 3 04/02/24 09:00 3 Intake and Output 04/02/24 04/03/24 04/03/24 23:59 07:59 15:59 Intake Total 460 / 1940 50 / 50 Output Total 0 / 700 Balance 460 / 1240 50 / 50 Intake: Intake, Oral Amount 360 / 1490 Intake, Total IV Amount 100 / 450 50 / 50 Ceftriaxone Sodium 1 gm In 0.9 50 / 50 % Sodium Chloride 50 ml @ 100 mls/hr IV Q24H [facility] Rx#:[id number] Iron Sucrose Complex 200 mg In 100 / 100 0.9 % Sodium Chloride 100 ml @ 220 mls/hr IV ONCE ONE Rx#: [id number] Output: Output, Urine Amount 0 / 700 Other: Number of Voids 0 Number of Unmeasured Voids 1 Number of Bowel Movements 1 Weight 95.844 kg Patient Weight 04/03/24 23:59 Weight 95.844 kg Laboratory Results - last 24 hr 04/02/24 11:21: POC Glucose 334 H* 04/02/24 16:08: POC Glucose 407 H* 04/02/24 20:03: Random Glucose 541 H* 04/02/24 20:26: POC Glucose 565 H* 04/03/24 05:37: WBC 10.5, RBC 4.22 L, Hgb 11.4 L, Hct 36.5 L, MCV 86.4, MCH 27.0, MCHC 31.2 L, RDW 17.7 H, Plt Count 287, MPV 8.6, Neut % (Auto) 84.8 H, Lymph % (Auto) 9.1 L, [place] % (Auto) 5.9, Eos % (Auto) 0.1, Baso % (Auto) 0.2, Neut # (Auto) 8.9 H, Lymph # (Auto) 1.0, [place] # (Auto) 0.6, Eos # (Auto) 0.0, Baso # (Auto) 0.0, Magnesium 2.6 H 04/03/24 05:41: POC Glucose 164 H I & O for Labs for Last 24 Hours: Intake & Output 03/31/24 04/01/24 04/02/24 04/03/24 23:59 23:59 23:59 23:59 Intake Total 420 / 710 1040 / 1440 1890 / 1940 50 / 50 Output Total 1800 / 2600 3350 / 3350 700 / 700 Balance -1380 / -1890 -2310 / -1910 1190 / 1240 50 / 50 Weight 96.388 kg 96.434 kg 96.9 kg 95.844 kg Microbiology Reports for the Last 24 Hours: Microbiology 03/31/24 10:41 Sputum - Expectorated Sputum Gram Stain - Final 03/31/24 10:41 Sputum - Expectorated Sputum Sputum Culture - Preliminary Rothia mucilaginosa Staphylococcus epidermidis The patient's infection will respond to the chosen ABx?: Yes (AFEBRILE OVER 24 HR, WBC 10.5, S.EPI OXACILLIN SENSITIVE.) Is the patient receiving the right drug, dose, and route?: Yes Could a more targeted ABx be ordered?: No
[2024-04-03] MEDS: FERROUS SULFATE 325MG TABLET 325 MG PO (09:11)
[2024-04-03 09:12] LABS: Albumin Level 3.3 g/dl (3.5-5.0); Chloride 107 mmol/L (98-107); Sodium 139 mmol/L (136-145)
[2024-04-03] MEDS: SPIRONOLACTONE 25MG TABLET 25 MG PO (09:12)
[2024-04-03] MEDS: CARVEDILOL 3.125MG TABLET 3.125 MG PO ×2 (09:12→20:38)
[2024-04-03] MEDS: EMPAGLIFLOZIN 10MG TABLET 10 MG PO (09:12)
[2024-04-03] MEDS: ASCORBIC ACID 500MG TAB 500 MG PO (09:12)
[2024-04-03] MEDS: APIXABAN 5MG TABLET 2.5 MG PO (09:12)
[2024-04-03] MEDS: TAMSULOSIN 0.4MG CAPSULE 0.4 MG PO (09:12)
[2024-04-03] MEDS: IRBESARTAN 75MG TABLET 75 MG PO (09:12)
[2024-04-03] MEDS: PANTOPRAZOLE 40MG TABLET 40 MG PO (09:12)
[2024-04-03] MEDS: CLOPIDOGREL 75MG TAB 75 MG PO (09:12)
[2024-04-03] MEDS: DOCUSATE SODIUM 100 MG CAPSULE PO (09:12)
[2024-04-03] MEDS: BUMETANIDE 1 MG TABLET PO (09:12)
[2024-04-03 09:13] LABS: Potassium 4.2 mmoL/L (3.5-5.1)
[2024-04-03 09:15] LABS: Anion Gap 11.2 mEq/L (5-15); Blood Urea Nitrogen 64 mg/dl (9-20); Carbon Dioxide 25 mmol/L (22.0-30.0); Creatinine Clearance Estimated 41 mL/min (50-200); Estimated Glomerular Filt Rate 34 ml/min (>60); GFR (African American) 41 ML/MIN (>60)
[2024-04-03 09:16] LABS: Alanine Aminotransferase 39 U/L (12-78); Albumin/Globulin Ratio 1.2 (1.1-1.8); Alkaline Phosphatase 152 U/L (38-126); Aspartate Amino Transferase 65 U/L (17-59); Bilirubin,Total 0.5 mg/dl (0.2-1.3); Calcium 8.5 mg/dl (8.4-10.2); Globulin 2.8 g/dL (1.3-3.2); Glucose 134 mg/dl (74-100); Total Protein,Serum 6.1 g/dl (6.3-8.2)
[2024-04-03 09:50] LABS: NT Pro Brain Natriuretic Pep. 1870 pg/mL (0-450)
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
--- NOTE | 2024-04-03 10:21 | SW/DCPLANNER ---
Addendum entered by Haydee Agarwal 04/04/24 10:03: Patient information/order faxed to [email or web address]/ [facility]. [facility] stated that home health services will start tomorrow. Original Note: I spoke w/ patient and his this AM regarding plans at time of discharge. PT/OT evaluated patient and recommended home health services. Patient is agreeable to home health (no preference). Home Health services will be set up at time of discharge. Discharge date is unknown at this time.
[2024-04-03] MEDS: humaLOG 100 UNITS/ML 10ML VIAL (SSI) 25 UNIT SQ ×2 (11:00→20:40)
--- NOTE | 2024-04-03 11:03 | P.CONCA_ITS ---
History of Present Illness History of Present Illness Consult date: 04/03/24 Requesting physician: Crow Urena Consult reason: congestive heart failure Chief complaint: Shortness of breath and weakness History of present illness: 84-year-old white male former patient of our office who has not followed up in several years. Has history of CAD status post CABG, HFpEF per echo in 2021, persistent rate controlled A-fib, COPD with [id number] smoking on 4L at baseline, CKD 3, poorly controlled diabetes with A1c of 10, chronic recurrent iron deficiency anemia, recent fracture of thoracic spine within the past year. Patient presented to the emergency room over the weekend with complaints of worsening shortness of breath cough hypoxia weakness. On evaluation he was found to be in COPD exacerbation, A-fib RVR 120s, Trop 0.35, and acute on chronic HFpEF. EKG on chart shows SR with LBBB which is unchanged from 2021. His Troponin trended down with improved oxygenation and patient denies anginal chest pain. He was not on guideline directed medical therapy for his CAD CHF or A-fib. He has been since started on each since admission and has diuresed 4 L. He reports feeling significantly better than he did on admission. Repeat echo here is pending. [facility] Disclaimer: The information contained in this section may have been updated after the patient was seen, as this information can be updated by other users. Medical History Morbid obesity with BMI of 40.0-44.9, adult CKD stage 3a, GFR 45-59 ml/min Iron deficiency anemia Multiple pulmonary nodules Chronic hypoxemic respiratory failure COPD (chronic obstructive pulmonary disease) Pulmonary emphysema Stopped smoking with greater than 30 pack year history Lung nodule Dyspnea on exertion Sleep apnea Diabetes mellitus Abnormal EKG Atypical angina JUAN [place]ANCISCO (cerebral atherosclerosis) Edema Pre-op evaluation Claudication Paroxysmal atrial fibrillation HHD (hypertensive heart disease) Surgical History History of prostate surgery History of heart artery stent Family History Other Anemia Coronary artery disease Diabetes Heart attack Hyperlipidemia Hypertension Stroke Social History Smoking Status: Former smoker tobacco type: cigarettes packs per day: 2 second hand exposure: No alcohol intake: never substance use type: denies use current occupational status: retired Travel in the last 8 weeks: None household members: spouse housing: house current occupational exposures/hazards: No caffeine: Yes Review of Systems Constitutional Constitutional: Reports weakness Eyes Eyes: Denies loss of vision ENT Ears, Nose, Mouth, and Throat: Denies hearing loss *Cardiovascular Cardiovascular: Denies chest pain and Denies dyspnea *Respiratory Respiratory: Denies cough and Denies dyspnea *Gastrointestinal Gastrointestinal: Denies change in stool character, Denies nausea and Denies vomiting *Genitourinary Genitourinary: Denies difficulty urinating *Musculoskeletal Musculoskeletal: Denies muscle weakness Integumentary/Breasts Skin/Breast: Denies changing lesions *Neurologic Neurologic: Denies abnormal speech, Denies confusion, Denies localized weakness, Denies loss of vision, Denies sensory deficit and Reports weakness Psychiatric Psychiatric: Denies confusion Exam Data for Last 24 hours Vital signs and Labs for Last 24 Hours: Temp Pulse Resp BP Pulse Ox O2 Del Method O2 Flow Rate 97.9 F 58 L 17 162/76 H 92 L Nasal Cannula 3 04/03/24 08:00 04/03/24 08:00 04/03/24 08:00 04/03/24 08:00 04/03/24 08:00 04/03/24 10:01 04/03/24 10:01 FiO2 32 04/01/24 19:21 Laboratory Results - last 24 hr 04/02/24 11:21: POC Glucose 334 H* 04/02/24 16:08: POC Glucose 407 H* 04/02/24 20:03: Random Glucose 541 H* 04/02/24 20:26: POC Glucose 565 H* 04/03/24 05:37: WBC 10.5, RBC 4.22 L, Hgb 11.4 L, Hct 36.5 L, MCV 86.4, MCH 27.0, MCHC 31.2 L, RDW 17.7 H, Plt Count 287, MPV 8.6, Neut % (Auto) 84.8 H, Lymph % (Auto) 9.1 L, [place] % (Auto) 5.9, Eos % (Auto) 0.1, Baso % (Auto) 0.2, Neut # (Auto) 8.9 H, Lymph # (Auto) 1.0, [place] # (Auto) 0.6, Eos # (Auto) 0.0, Baso # (Auto) 0.0, Sodium 139, Potassium 4.2, Chloride 107, Carbon Dioxide 25, Anion Gap 11.2, BUN 64 H, Creatinine 1.90 H, Estimated Creat Clear 41, Estimated GFR 34 L, Est GFR ( Amer) 41 L, Glucose 134 H, Calcium 8.5, Magnesium 2.6 H, Total Bilirubin 0.5, AST 65 H, ALT 39, Alkaline Phosphatase 152 H, NT-Pro-B Natriuret Pep 1870 H, Total Protein 6.1 L, Albumin 3.3 L, Globulin 2.8, Albumin/Globulin Ratio 1.2 04/03/24 05:41: POC Glucose 164 H I & O for Last 24 hours: Intake & Output 03/31/24 04/01/24 04/02/24 04/03/24 23:59 23:59 23:59 23:59 Intake Total 420 / 710 1040 / 1440 1890 / 1940 410 / 410 Output Total 1800 / 2600 3350 / 3350 700 / 700 0 / 0 Balance -1380 / -1890 -2310 / -1910 1190 / 1240 410 / 410 Weight 212 lb 8 oz 212 lb 9.6 oz 213 lb 10.047 oz 211 lb 4.8 oz Microbiology Reports for the Last 24 Hours: Microbiology 03/31/24 10:41 Sputum - Expectorated Sputum Gram Stain - Final 03/31/24 10:41 Sputum - Expectorated Sputum Sputum Culture - Preliminary Rothia mucilaginosa Staphylococcus epidermidis Constitutional Constitutional: no acute distress, obese and cooperative *Routine HEENT Exam Eye: Present PERRL *Routine Respiratory Exam Respiratory: Present CTA bilaterally; Absent accessory muscle use, wheezes or crackles *Routine Cardiovascular Exam Cardiovascular: Present RRR, Normal S1 and Normal S2; Absent murmur, gallop or rubs *Routine Abdominal Exam Abdominal: Present soft; Absent tenderness *Routine Extremities Exam Extremities: Present pulses intact; Absent cyanosis or edema *Routine Skin Exam Skin: Present intact; Absent erythema or wounds *Routine Neurological Exam Neurological: Present alert and oriented X3 Routine Psychiatric Exam Psychiatric: Present cooperative Meds Home Medications and Allergies Home Medications ?Medication ?Instructions ?Recorded ?Confirmed ?Type clopidogrel 75 mg tablet (Plavix) 75 mg PO DAILY #90 tabs 10/28/22 03/31/24 Rx insulin regular hum U-500 conc 500 120 unit (0.24 mL) SQ BIDWMEAL 11/05/2203/31 Rx unit/mL(3 mL) subcut pen Diabetes 30 days #14.4 mL oxybutynin chloride 10 mg 10 mg PO DAILY 11/05/22 03/31/24 History tablet,extended release 24 hr pen needle, diabetic 32 gauge x #100 ea 06/01/23 03/31/24 Rx /32 (BD Jayne 2nd Gen Pen Needle) gabapentin 300 mg capsule 300 mg PO BID Pain #60 caps 11/21/23 03/31/24 Rx tiotropium 2.5 mcg-olodaterol 2.5 2 puff inhalation DAILY Breathing 11/21/23 03/31/24 Rx mcg/actuation mist for inhalation problems #4 grams (Stiolto Respimat) tamsulosin 0.4 mg capsule 0.4 mg PO DAILY 11/22/23 03/31/24 History hydrocodone 5 mg-acetaminophen 325 1 tab PO DAILY #30 tabs 03/21/24 03/31/24 Rx mg tablet nystatin 100,000 unit/gram topical 1 applic topical TID #60 grams 03/22/24 03/31/24 Rx cream albuterol sulfate 90 mcg/actuation 2 inh inhalation Q6HP PRN 03/31/24 03/31/24 History aerosol inhaler shortness of breath or wheezing benzonatate 200 mg capsule 200 mg PO TIDP PRN cough 03/31/24 03/31/24 History ferrous gluconate 324 mg (38 mg 324 mg PO DAILY 03/31/24 03/31/24 History iron) tablet gemfibrozil 600 mg tablet 600 mg PO BID 03/31/24 03/31/24 History ipratropium 0.5 mg-albuterol 3 mg 3 ml inhalation QIDP PRN shortness 03/31/24 03/31/24 History (2.5 mg base)/3 mL nebulization of breath or wheezing soln pantoprazole 40 mg tablet,delayed 40 mg PO DAILY 03/31/24 03/31/24 History release rosuvastatin 40 mg tablet 40 mg PO DAILY 03/31/24 03/31/24 History torsemide 10 mg tablet 30 mg PO BID 03/31/24 03/31/24 History New Prescriptions to Start Prescriptions: Allergies Allergy/AdvReac Type Severity Reaction Status Date / Time oxycodone Allergy Intermediate I-RASH Verified 03/22/24 15:36 Sulfa (Sulfonamide Allergy Unknown Unknown Verified 03/22/24 15:36 Antibiotics) allergy reaction aspirin AdvReac Intermediate Other Verified 03/22/24 15:36 Assessment and Plan *Assessment and plan (1) Acute on chronic heart failure with preserved ejection fraction (HFpEF): Status: Acute Category: Medical Code(s): I50.33 - Acute on chronic diastolic (congestive) heart failure (2) Myocardial injury: Status: Acute Category: Medical Code(s): I5A - Non-ischemic myocardial injury (non-traumatic) (3) Atrial fibrillation with rapid ventricular response: Status: Acute Category: Medical Code(s): I48.91 - Unspecified atrial fibrillation (4) CAD (coronary artery disease): Status: Acute Category: Medical Code(s): I25.10 - Atherosclerotic heart disease of [place] coronary artery without angina pectoris (5) Acute exacerbation of chronic obstructive pulmonary disease: Status: Acute Category: Medical Code(s): J44.1 - Chronic obstructive pulmonary disease with (acute) exacerbation (6) CKD stage 3a, GFR 45-59 ml/min: Status: Acute Category: Medical Code(s): N18.31 - Chronic kidney disease, stage 3a (7) Morbid obesity with BMI of 40.0-44.9, adult: Status: Acute Category: Medical Code(s): E66.01 - Morbid (severe) obesity due to excess calories; Z68.41 - Body mass index [BMI] 40.0-44.9, adult Plan Acute on Chronic HFpEF -NYHA = 4 on presentation, currently 2-3 -known dx with ECHO in 2021 showing biatrial enlargement, mild LVH, EF 50%, grade 2 diastolic dysfunction, mild RV enlargement, mild MR, mild TR -On arrival here patient was hypoxic and orthopneic with proBNP of 24,000. C hest x-ray did not show edema but he did have peripheral edema on exam -Patient has diuresed 4 L and been placed on GDMT -Repeat echo here is pending CAD status post CABG with elevated Troponin - CCS = 0 -No ischemic evaluation in several years, patient was on Plavix and aspirin at home -Troponin max zero 0.35 then trended down this was in setting of acute infection and hypoxia -EKG shows sinus rhythm with left bundle branch block which is unchanged from 2021 -Continue Plavix, statin, beta-sohail and ARB -Repeat echo pending, consider predischarge heart cath Paroxysmal atrial fibrillation -Known diagnosis for many year -Patient arrived not on AVB or OAC -He has been in sinus rhythm since admission -Continue beta-sohail -Change Eliquis to renally dosed Xarelto as it would be combined with Acute on chronic hypoxic respiratory failure - 60 pack years, on 4L/min at home - questionable infectious component this admission - nebs, steroids, ab per primary service CKD-III - baseline CR 1.5-2.2 over the past several years - daily labs, dose adjust meds PRN DM-II - poorly controlled with A1C >10 on arrival - on SGLT2 - glucose control per primary service Addendum: ECHO shows EF 30% which is a new dx for patient. Discussed LifeVest and oupatient [facility]. He is agreeable to both.
[2024-04-03 12:07] LABS: POC Glucose,Bedside 429 (70-110)
[2024-04-03] MEDS: humaLOG 100 UNITS/ML 10ML VIAL (SSI) SQ ×3 (12:57→20:38)
--- NOTE | 2024-04-03 15:15 | PC.NURSE ---
Aox 4, SOUND RECORDIST cough, up with assistance times one with walker, 02-3L nc, 22g r fa sl, echo done with EF of 30%, patient to have a lifevest placed before d/c.
[2024-04-03 15:46] LABS: POC Glucose,Bedside 213 (70-110)
--- NOTE | 2024-04-03 15:52 | EXP.ACUTE.PN ---
Subjective *Date: 04/03/24 *Time: 16:00 Interval history: Patient extremely pleasant during interview with Dr. Hall today. Patient's and interdisciplinary treatment team present during interview with Dr. Hall. Reports some persistent weakness, but declines short-term rehab placement. Amendable to home health arrangements after hospital discharge. EF 30%, with new systolic heart failure noted today via echocardiogram. Seen by sec reporting consultant today with outpatient heart cath planned. States SOB/KRAMER improving with IV Lasix. Medical Exam Vital signs and Labs for Last 24 Hours: Vital Signs Temp Pulse Pulse Resp BP Pulse Ox O2 Del Method 04/03/24 14:42 Nasal Cannula 04/03/24 12:00 97.7 F 64 20 149/47 H 92 L Nasal Cannula 04/03/24 11:55 Nasal Cannula 04/03/24 10:01 Nasal Cannula 04/03/24 09:00 Nasal Cannula 04/03/24 08:00 70 04/03/24 08:00 Nasal Cannula 04/03/24 08:00 97.9 F 58 L 17 162/76 H 92 L Room Air 04/03/24 06:43 Nasal Cannula 04/03/24 05:00 Nasal Cannula 04/03/24 04:00 97.9 F 59 L 16 137/66 93 L 04/03/24 03:00 Nasal Cannula 04/03/24 01:00 Nasal Cannula 04/03/24 00:26 74 04/03/24 00:26 75 04/03/24 00:00 98.1 F 61 18 156/70 H 95 Nasal Cannula 04/02/24 23:00 Nasal Cannula 04/02/24 21:00 Nasal Cannula 04/02/24 20:00 98.1 F 71 18 167/70 H 92 L Nasal Cannula 04/02/24 19:48 Nasal Cannula 04/02/24 18:41 Nasal Cannula 04/02/24 18:10 75 04/02/24 18:10 78 04/02/24 18:10 94 L Nasal Cannula 04/02/24 16:46 Nasal Cannula 04/02/24 16:00 97.8 F 72 19 116/62 98 Nasal Cannula O2 Flow Rate 04/03/24 14:42 3 04/03/24 12:00 3 04/03/24 11:55 3 04/03/24 10:01 3 04/03/24 09:00 3 04/03/24 08:00 04/03/24 08:00 3 04/03/24 08:00 04/03/24 06:43 3 04/03/24 05:00 3 04/03/24 04:00 3 04/03/24 03:00 3 04/03/24 01:00 3 04/03/24 00:26 04/03/24 00:26 04/03/24 00:00 3 04/02/24 23:00 3 04/02/24 21:00 3 04/02/24 20:00 3 04/02/24 19:48 3 04/02/24 18:41 3 04/02/24 18:10 04/02/24 18:10 04/02/24 18:10 3 04/02/24 16:46 3 04/02/24 16:00 3 Intake and Output 04/02/24 04/03/24 04/03/24 23:59 07:59 15:59 Intake Total 460 / 1940 50 / 770 720 / 770 Output Total 0 / 700 0 / 0 Balance 460 / 1240 50 / 770 720 / 770 Intake: Intake, Oral Amount 360 / 1490 720 / 720 Intake, Total IV Amount 100 / 450 50 / 50 Ceftriaxone Sodium 1 gm In 0.9 50 / 50 % Sodium Chloride 50 ml @ 100 mls/hr IV Q24H [facility] Rx#:[id number] Iron Sucrose Complex 200 mg In 100 / 100 0.9 % Sodium Chloride 100 ml @ 220 mls/hr IV ONCE ONE Rx#: [id number] Output: Output, Urine Amount 0 / 700 0 / 0 Other: Number of Voids 0 0 Number of Unmeasured Voids 1 0 Number of Bowel Movements 1 Weight 95.844 kg Patient Weight 04/03/24 23:59 Weight 95.844 kg Laboratory Results - last 24 hr 04/02/24 16:08: POC Glucose 407 H* 04/02/24 20:03: Random Glucose 541 H* 04/02/24 20:26: POC Glucose 565 H* 04/03/24 05:37: WBC 10.5, RBC 4.22 L, Hgb 11.4 L, Hct 36.5 L, MCV 86.4, MCH 27.0, MCHC 31.2 L, RDW 17.7 H, Plt Count 287, MPV 8.6, Neut % (Auto) 84.8 H, Lymph % (Auto) 9.1 L, [place] % (Auto) 5.9, Eos % (Auto) 0.1, Baso % (Auto) 0.2, Neut # (Auto) 8.9 H, Lymph # (Auto) 1.0, [place] # (Auto) 0.6, Eos # (Auto) 0.0, Baso # (Auto) 0.0, Sodium 139, Potassium 4.2, Chloride 107, Carbon Dioxide 25, Anion Gap 11.2, BUN 64 H, Creatinine 1.90 H, Estimated Creat Clear 41, Estimated GFR 34 L, Est GFR ( Amer) 41 L, Glucose 134 H, Calcium 8.5, Magnesium 2.6 H, Total Bilirubin 0.5, AST 65 H, ALT 39, Alkaline Phosphatase 152 H, NT-Pro-B Natriuret Pep 1870 H, Total Protein 6.1 L, Albumin 3.3 L, Globulin 2.8, Albumin/Globulin Ratio 1.2 04/03/24 05:41: POC Glucose 164 H 04/03/24 11:59: POC Glucose 429 H* 04/03/24 15:40: POC Glucose 213 H Echocardiogram 04/03: Technically difficult study due to poor acoustic windows. Moderate to severe reduction in LV systolic function (LVEF 30%). Grade 2 diastolic dysfunction. 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 Severe hypokinesis of the inferior LV wall. There is also akinesis of the inferoseptal LV wall. Asynchronous septum. Mild LA dilation. No significant valvular stenosis or regurgitation. Trivial, anterior pericardial effusion is present. No echo indications of tamponade. I & O for Labs for Last 24 Hours: Intake & Output 03/31/24 04/01/24 04/02/24 04/03/24 23:59 23:59 23:59 23:59 Intake Total 420 / 710 1040 / 1440 1890 / 1940 770 / 770 Output Total 1800 / 2600 3350 / 3350 700 / 700 0 / 0 Balance -1380 / -1890 -2310 / -1910 1190 / 1240 770 / 770 Weight 96.388 kg 96.434 kg 96.9 kg 95.844 kg Microbiology Reports for the Last 24 Hours: Microbiology 03/31/24 10:41 Sputum - Expectorated Sputum Gram Stain - Final 03/31/24 10:41 Sputum - Expectorated Sputum Sputum Culture - Preliminary Rothia mucilaginosa Staphylococcus epidermidis Head: Present atraumatic ENT: Present normal exam and mucous membranes moist Neck: Present normal inspection and full ROM Respiratory: Present prolonged expiratory phase and diminished air movement Cardiac: Present Regular Rate and Regular Rhythm GI: Present soft and normal bowel sounds; Absent guarding, rebound or rigidity Rectal (male): Present deferred (male): Present deferred Extremities: Present normal inspection and full ROM Skin: Present intact and dry Assessment and Plan *Assessment and plan (1) CKD stage 3a, GFR 45-59 ml/min: Status: Acute Category: Medical Code(s): N18.31 - Chronic kidney disease, stage 3a (2) New onset of congestive heart failure: Status: Acute Category: Medical Code(s): I50.9 - Heart failure, unspecified (3) Iron deficiency anemia: Status: Acute Category: Medical Code(s): D50.9 - Iron deficiency anemia, unspecified (4) Respiratory failure: Status: Acute Qualifiers: Chronicity: acute on chronic Respiratory failure complication: hypoxia Qualified Code(s): J96.21 - Acute and chronic respiratory failure with hypoxia Category: Medical Code(s): J96.90 - Respiratory failure, unspecified, unspecified whether with hypoxia or hypercapnia (5) Acute non-ST elevation myocardial infarction (NSTEMI): Status: Acute Category: Medical Code(s): I21.4 - Non-ST elevation (NSTEMI) myocardial infarction (6) Atrial fibrillation with rapid ventricular response: Status: Acute Category: Medical Code(s): I48.91 - Unspecified atrial fibrillation (7) Myocardial injury: Status: Acute Category: Medical Code(s): I5A - Non-ischemic myocardial injury (non-traumatic) (8) Morbid obesity with BMI of 40.0-44.9, adult: Status: Acute Category: Medical Code(s): E66.01 - Morbid (severe) obesity due to excess calories; Z68.41 - Body mass index [BMI] 40.0-44.9, adult Plan This is an 84-year-old male with morbid obesity, coronary artery disease, HFpEF and COPD who presents with shortness of air and was found to be in A-fib with RVR with elevated troponin and proBNP. Showing improvement with treatment for CHF exacerbation. Plan to continue antibiotics and diuresis. Patient seen by cardiology 04/03 with LifeVest ordered. Patient echocardiogram 04/03 shows ejection fraction 30%. Patient plans for cardiac outpatient heart catheterization after disposition. Problems addressed as follows: Myocardial injury type II A-fib with RVR assess Coronary artery disease Acute on chronic HFpEF 04/03 DC IV Lasix and switch to Lasix 40 mg p.o. twice daily 04/03 EF 30% echocardiogram. Outpatient C planned by cardiology department. Obtaining LifeVest for at time of hospital disposition. Continue cautious diuresis. [id number]. Rate controlled. Lipitor 40 mg nightly, Bumex 1 mg p.o. once daily. Has diuresed well. -4 L since admission. Continue carvedilol 3.125 mg twice daily Continue spironolactone 25 mg daily, irbesartan 75 mg daily Continue Eliquis 2.5 mg twice daily Troponin trended down. Peaked at 0.35, decreased to 0.25. Repeat troponin level ordered for the morning Cardiology consultation, will see patient in the morning. Previous echo (09/2021) EF 50%, LVH, grade 2 diastolic dysfunction Echocardiogram pending Magnesium 2.6, potassium 3.7. Repeat CBC, CMP, magnesium ordered for the morning. Remove [place] today. 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 Wean to nocturnal oxygen as tolerated. Continue supplemental oxygen for goal sats greater than 90%. Currently on 3 L. Baseline 3 to 4 L. DuoNebs as needed every 6 hours. Continue azithromycin and ceftriaxone for respiratory infection component, will complete 5 days. Prednisone 40 mg daily White count normal at 10.3. Chronic kidney disease stage IIIa Baseline 1.5-2.0. Creatinine 2.2 today, BUN 57. Appropriate bump given need to drive patient out due to his heart failure. Iron deficiency anemia Hemoglobin 11.3. TIBC 456 iron saturation 7.6%. Iron level 35. Will administer Venofer 200mg x 1. Diabetes Continue to increase glargine as needed for euglycemia. sliding scale at high intensity. Glucoses remain elevated but trending toward normal range. BPH/urinary retention: Continue tamsulosin 0.4 mg HS initiate finasteride 5 mg nightly Full code Diabetic diet Disposition: ? Hopefully 04/04 once LifeVest obtained with outpatient cardiac catheterization scheduled.
[2024-04-03] MEDS: RIVAROXABAN 15MG TABLET 15 MG PO ×2 (17:26→19:25)
[2024-04-03] MEDS: CEFTRIAXONE SODIUM 1 GM in 0.9 % SODIUM CHLORIDE 50 ML IV (19:25)
[2024-04-03] MEDS: INSULIN GLARGINE 100 UNITS/ML 3ML FLEXPEN 45 UNIT SQ (20:38)
[2024-04-03] MEDS: ATORVASTATIN 40MG TABLET 40 MG PO (20:38)
[2024-04-03] MEDS: FINASTERIDE 5MG TABLET 5 MG PO (20:38)
[2024-04-04] VITALS (19 sets, daily range): BP systolic 98–137; BP diastolic 49–88; PULSE 58–83; RESP 16–20; TEMP 36.4–36.8; O2SAT 80–98; BMI 32.0
[2024-04-04 05:12] LABS: POC Glucose,Bedside 171 (70-110)
[2024-04-04] MEDS: AZITHROMYCIN 500 MG in 0.9 % SODIUM CHLORIDE 250 ML 250 MG IV (05:23)
[2024-04-04] MEDS: IPRATROPIUM/ALBUTEROL 3 ML NEB IH ×3 (06:16→18:13)
[2024-04-04] MEDS: BUDESONIDE 0.5MG/2ML NEB 0.5 MG IH ×2 (06:16→18:13)
[2024-04-04] MEDS: humaLOG 100 UNITS/ML 10ML VIAL (SSI) SQ ×3 (06:20→16:54)
[2024-04-04] MEDS: humaLOG 100 UNITS/ML 10ML VIAL (SSI) 25 UNIT SQ (06:21)
--- NOTE | 2024-04-04 06:58 | PC.NURSE ---
would not go home. Very needy. Requesting nursing staff assistance with her ADLs.
--- NOTE | 2024-04-04 08:33 | P.DS_ITS ---
General Admission date:: 03/31/24 HPI HPI HPI: This is an 84-year-old male who presents to [facility] emergency department with concerns of shortness of air. He reports a nonproductive croupy cough over the last few days not improving with home care. He describes a significant smoking history of 2 packs/day for greater than 30 years but quit a few years ago. He reports home oxygen at 4 L. He describes a history of coronary disease with previous surgical intervention and stent deployment. In the ED he was satting in the 80s and with oxygen administration has saturations improved. Chest imaging was concerning for cardiomegaly and his troponin was elevated. His telemetry identified atrial fibrillation with rates in the 120s. His COVID test came back negative. Hospital Course Hospital Course Hospital Course: This is an 84-year-old male with morbid obesity, coronary artery disease, HFpEF and COPD who presents with shortness of air and was found to be in A-fib with RVR with elevated troponin and proBNP. Patient diagnosed with type II non- STEMI, new onset systolic CHF exacerbation, and COPD exacerbation during hospitalization. Patient started on IV diuretics during hospitalization, with good diuresis noted. Previous echo (09/2021) EF 50%, LVH, grade 2 diastolic dysfunction. Echocardiogram done during hospitalization 04/03 showed EF 30%, confirming diagnosis of new onset systolic heart failure. Cardiology was consulted, and evaluated patient throughout hospitalization. Patient started on Jardiance, Coreg, spironolactone, irbesartan during hospitalization; all well- tolerated. Patient transitioned from Eliquis to Xarelto therapy per cardiology consult and recommendation during hospitalization. Patient's IV diuresis discontinued 04/02, and patient started on p.o. Bumex for remainder of hospitalization. Patient transition back to home torsemide at time of hospital disposition. Patient offered cardiac catheterization during hospitalization, but 04/04/24 radial artery cardiac catheterization procedure unsuccessful, and patient decided on outpatient repeat cardiac catheterization arrangements. Patient subsequently discharged home with [facility] 04/04, and instructed to follow-up with cardiology on outpatient basis. In terms of patient's COPD exacerbation, patient started on IV antibiotics, daily prednisone, nebulization treatments, and supplemental oxygen during hospitalization. Patient also diagnosed with community-acquired pneumonia causing COPD exacerbation during hospitalization. 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 Patient also uses nocturnal oxygen, 4 L at baseline. Patient's breathing slowly improved, and patient weaned to home oxygen requirement by time of hospital disposition. Patient serial radiographs also showed improvement throughout hospitalization on IV antibiotic therapy. Patient given IV azithromycin/Rocephin during hospitalization, and discharged home on 4 days azithromycin/cefdinir by Dr. Hall at time of hospital discharge 04/04/2024. For patient's pulmonary nodules management, patient advised to follow-up with pulmonary on outpatient basis. Patient will receive total 8- day total IV/p.o. antibiotic treatment course for community-acquired pneumonia causing COPD exacerbation. Patient's diabetes was controlled during hospitalization with combination glargine/short acting lispro therapy. Patient return to home diabetic regimen at time of hospital discharge. Patient also started on Jardiance during hospita lization, and continued on this medication at time of hospital discharge. Exam Data for Last 24 hours Vital signs and Labs for Last 24 Hours: Temp Pulse Resp BP Pulse Ox O2 Del Method O2 Flow Rate 97.6 F 68 20 114/62 96 Nasal Cannula 3 04/04/24 08:00 04/04/24 08:00 04/04/24 08:00 04/04/24 08:00 04/04/24 08:00 04/04/24 08:00 04/04/24 08:00 FiO2 32 04/01/24 19:21 Laboratory Results - last 24 hr 04/03/24 05:37: Sodium 139, Potassium 4.2, Chloride 107, Carbon Dioxide 25, Anion Gap 11.2, BUN 64 H, Creatinine 1.90 H, Estimated Creat Clear 41, Estimated GFR 34 L, Est GFR ( Amer) 41 L, Glucose 134 H, Calcium 8.5, Total Bilirubin 0.5, AST 65 H, ALT 39, Alkaline Phosphatase 152 H, NT-Pro-B Natriuret Pep 1870 H, Total Protein 6.1 L, Albumin 3.3 L, Globulin 2.8, Albumin/Globulin Ratio 1.2 04/03/24 11:59: POC Glucose 429 H* 04/03/24 15:40: POC Glucose 213 H 04/04/24 05:02: POC Glucose 171 H I & O for Last 24 hours: Intake & Output 04/01/24 04/02/24 04/03/24 04/04/24 23:59 23:59 23:59 23:59 Intake Total 1040 / 1440 1890 / 1940 1130 / 1540 660 / 660 Output Total 3350 / 3350 700 / 700 0 / 0 Balance -2310 / -1910 1190 / 1240 1130 / 1540 660 / 660 Weight 96.434 kg 96.9 kg 95.844 kg 95.844 kg Microbiology Reports for the Last 24 Hours: Microbiology 03/31/24 10:41 Sputum - Expectorated Sputum Gram Stain - Final 03/31/24 10:41 Sputum - Expectorated Sputum Sputum Culture - Final Rothia mucilaginosa Staphylococcus epidermidis 03/31/24 02:31 Blood Blood Culture - Preliminary NO GROWTH AFTER 4 DAYS 03/31/24 02:04 Blood Blood Culture - Preliminary NO GROWTH AFTER 4 DAYS Radiology Reports for the Last 24 Hours: 04/02/2024 x-ray IMPRESSION: Opacity in the left mid lung and left base may represent atelectasis or pneumonia. 03/31/2024 CT chest: IMPRESSION: 1. Patchy bilateral airspace opacities as described most prominently in the left upper lobe and right lower lobe, likely infiltrate but follow-up after treatment of presumed pneumonia to demonstrate resolution. 2. Coronary atherosclerosis. 3. Diffuse chronic interstitial changes. 03/31/2024 chest x-ray: IMPRESSION: 1. New small volume consolidations or irregular pulmonary nodules in the left upper lobe. Recommend follow-up to confirm resolution. 2. Mild left perihilar infiltrate 3. Underlying emphysema/COPD 4. Stable mild cardiomegaly without vascular congestion. Constitutional Constitutional: no acute distress, morbidly obese and chronically ill appearing *Routine HEENT Exam Head: Present normocephalic Eye: Present EOMI and normal accommodation ENT: Present mucous membranes moist and oropharynx clear *Routine Neck Exam Neck: Present supple and full ROM *Routine Respiratory Exam Respiratory: Present decreased breath sounds, prolonged expiratory phase and diminished air movement *Routine Cardiovascular Exam Cardiovascular: Present RRR, Normal S1 and Normal S2 *Routine Abdominal Exam Abdominal: Present soft and normoactive bowel sounds *Routine Extremities Exam Extremities: Present full ROM and normal capillary refill *Routine Skin Exam Skin: Present intact and dry *Routine Neurological Exam Neurological: Present alert, oriented X3 and CN II-XII intact Results Data Completed and Pending Labs on day of discharge: Labs from last 24 hours 04/04/24 04/03/24 04/03/24 05:02 15:40 11:59 Sodium Potassium Chloride Carbon Dioxide Anion Gap BUN Creatinine Estimated Creat Clear Estimated GFR Est GFR ( Amer) Glucose POC Glucose 171 H 213 H 429 H* Calcium Total Bilirubin AST ALT Alkaline Phosphatase NT-Pro-B Natriuret Pep Total Protein Albumin Globulin Albumin/Globulin Ratio 04/03/24 05:37 Sodium 139 Potassium 4.2 Chloride 107 Carbon Dioxide 25 Anion Gap 11.2 BUN 64 H Creatinine 1.90 H Estimated Creat Clear 41 Estimated GFR 34 L Est GFR ( Amer) 41 L Glucose 134 H POC Glucose Calcium 8.5 Total Bilirubin 0.5 AST 65 H ALT 39 Alkaline Phosphatase 152 H NT-Pro-B Natriuret Pep 1870 H Total Protein 6.1 L Albumin 3.3 L Globulin 2.8 Albumin/Globulin Ratio 1.2 Preliminary micro results at discharge 03/31/24 02:31 Blood Culture - Preliminary Blood NO GROWTH AFTER 4 DAYS 03/31/24 02:04 Blood Culture - Preliminary Blood NO GROWTH AFTER 4 DAYS DS: Diagnosis Discharge Diagnosis (1) CKD stage 3a, GFR 45-59 ml/min: Status: Acute Code(s): N18.31 - Chronic kidney disease, stage 3a (2) New onset of congestive heart failure: Status: Acute Code(s): I50.9 - Heart failure, unspecified (3) Iron deficiency anemia: Status: Acute Code(s): D50.9 - Iron deficiency anemia, unspecified (4) Respiratory failure: Status: Acute Code(s): J96.90 - Respiratory failure, unspecified, unspecified whether with hypoxia or hypercapnia Qualifiers: Chronicity: acute on chronic Respiratory failure complication: hypoxia Qualified Code(s): J96.21 - Acute and chronic respiratory failure with hypoxia (5) Acute non-ST elevation myocardial infarction (NSTEMI): Status: Acute Code(s): I21.4 - Non-ST elevation (NSTEMI) myocardial infarction (6) Atrial fibrillation with rapid ventricular response: Status: Acute Code(s): I48.91 - Unspecified atrial fibrillation (7) Myocardial injury: Status: Acute Code(s): I5A - Non-ischemic myocardial injury (non-traumatic) (8) Morbid obesity with BMI of 40.0-44.9, adult: Status: Acute Code(s): E66.01 - Morbid (severe) obesity due to excess calories; Z68.41 - Body mass index [BMI] 40.0-44.9, adult Meds Home Medications and Allergies Home Medications ?Medication ?Instructions ?Recorded ?Confirmed ?Type clopidogrel 75 mg tablet (Plavix) 75 mg PO DAILY #90 tabs 10/28/22 03/31/24 Rx insulin regular hum U-500 conc 500 120 unit (0.24 mL) SQ BIDWMEAL 11/05/22 03/31/24 Rx unit/mL(3 mL) subcut pen Diabetes 30 days #14.4 mL oxybutynin chloride 10 mg 10 mg PO DAILY 11/05/22 03/31/24 History tablet,extended release 24 hr pen needle, diabetic 32 gauge x #100 ea 06/01/23 03/31/24 Rx (BD Jayne 2nd Gen Pen Needle) gabapentin 300 mg capsule 300 mg PO BID Pain #60 caps 11/21/23 03/31/24 Rx tiotropium 2.5 mcg-olodaterol 2.5 2 puff inhalation DAILY Breathing 11/21/23 03/31/24 Rx mcg/actuation mist for inhalation problems #4 grams (Stiolto Respimat) tamsulosin 0.4 mg capsule 0.4 mg PO DAILY 11/22/23 03/31/24 History hydrocodone 5 mg-acetaminophen 325 1 tab PO DAILY #30 tabs 03/21/24 03/31/24 Rx mg tablet nystatin 100,000 unit/gram topical 1 applic topical TID #60 grams 03/22/24 03/31/24 Rx cream albuterol sulfate 90 mcg/actuation 2 inh inhalation Q6HP PRN 03/31/24 03/31/24 History aerosol inhaler shortness of breath or wheezing benzonatate 200 mg capsule 200 mg PO TIDP PRN cough 03/31/24 03/31/24 History ferrous gluconate 324 mg (38 mg 324 mg PO DAILY 03/31/24 03/31/24 History iron) tablet gemfibrozil 600 mg tablet 600 mg PO BID 03/31/24 03/31/24 History ipratropium 0.5 mg-albuterol 3 mg 3 ml inhalation QIDP PRN shortness 03/31/24 03/31/24 History (2.5 mg base)/3 mL nebulization of breath or wheezing soln pantoprazole 40 mg tablet,delayed 40 mg PO DAILY 03/31/24 03/31/24 History release rosuvastatin 40 mg tablet 40 mg PO DAILY 03/31/24 03/31/24 History torsemide 10 mg tablet 30 mg PO BID 03/31/24 03/31/24 History azithromycin 500 mg tablet 500 mg PO DAILY 4 days #4 tabs 04/04/24 Rx carvedilol 3.125 mg tablet 3.125 mg PO BID #90 tabs 04/04/24 Rx cefdinir 300 mg capsule 300 mg PO BID #8 caps 04/04/24 Rx empagliflozin 10 mg tablet 10 mg PO DAILY #90 tabs 04/04/24 Rx (Jardiance) finasteride 5 mg tablet 5 mg PO HS #90 tabs 04/04/24 Rx irbesartan 75 mg tablet 75 mg PO DAILY #90 tabs 04/04/24 Rx rivaroxaban 15 mg tablet (Xarelto) 15 mg PO QPMWITHMEAL #60 tabs 04/04/24 Rx spironolactone 25 mg tablet 25 mg PO DAILY #90 tabs 04/04/24 Rx New Prescriptions to Start Prescriptions: azithromycin Hall,Kike carvedilol Hall,Kike cefdinir Hall,[place] empagliflozin [Jardiance] Hall,Kike finasteride Hall,Kike irbesartan Hall,[place] rivaroxaban [Xarelto] Hall,[place] spironolactone Hall,[place] Allergies Allergy/AdvReac Type Severity Reaction Status Date / Time oxycodone Allergy Intermediate I-RASH Verified 03/22/24 15:36 Sulfa (Sulfonamide Allergy Unknown Unknown Verified 03/22/24 15:36 Antibiotics) allergy reaction aspirin AdvReac Intermediate Other Verified 03/22/24 15:36 Discharge Plan Disposition Patient Disposition: Home Health Service Condition: Fair Discharge Order Discharge Orders: Discharge Order (Routine); Ordered 04/04/24 Ordered By: Kike Hall Follow up Plan Follow up with: Jaquan Aly MD [Staff Physician] - 04/18/24 9:00 am (New onset systolic CHF, A-fib with RVR) Nirmala Gilman MD [Physician] - 04/19/24 1:00 pm (Pulmonary nodules noted during hospitalization workup. Please follow-up as outpatient. Thank you) Andres Valencia MD [Primary Care Provider] - 04/13/24 10:00 am (Status post hospitalization for new onset CHF exacerbation, COPD exacerbation) Prescriptions/Medication Reconciliation: New spironolactone 25 mg Tablet 25 mg PO DAILY Qty: 90 0RF Jardiance 10 mg Tablet 10 mg PO DAILY Qty: 90 0RF carvedilol 3.125 mg Tablet 3.125 mg PO BID Qty: 90 0RF irbesartan 75 mg Tablet 75 mg PO DAILY Qty: 90 0RF finasteride 5 mg Tablet 5 mg PO HS Qty: 90 0RF azithromycin 500 mg tablet 500 mg PO DAILY 4 Days Qty: 4 0RF cefdinir 300 mg capsule 300 mg PO BID Qty: 8 0RF Xarelto 15 mg Tablet 15 mg PO QPMWITHMEAL Qty: 60 0RF Continued oxybutynin chloride 10 mg tablet extended release 24hr 10 mg PO DAILY insulin regular hum U-500 conc 500 unit/mL (3 mL) insulin pen 120 unit SQ BIDWMEAL 30 Days Qty: 14.4 10RF Stiolto Respimat 2.5-2.5 mcg/actuation mist 2 puff inhalation DAILY Qty: 4 12RF gabapentin 300 mg capsule 300 mg PO BID Qty: 60 5RF nystatin 100,000 unit/gram cream 1 applic topical TID Qty: 60 1RF clopidogrel [Plavix] 75 mg tablet 75 mg PO DAILY Qty: 90 3RF (DME) pen needle, diabetic [BD Jayne 2nd Gen Pen Needle] 32 gauge x 5/32 needle See Rx Instructions .ROUTE .COMPLEX Qty: 100 12RF Dose Instruction: USE WITH INSULIN INJECTIONS Rx Instructions: USE WITH INSULIN INJECTIONS tamsulosin 0.4 mg capsule 0.4 mg PO DAILY ipratropium-albuterol 0.5 mg-3 mg(2.5 mg base)/3 mL solution for nebulization 3 ml INHALATION QIDP PRN (Reason: shortness of breath or wheezing) benzonatate 200 mg capsule 200 mg PO TIDP PRN (Reason: cough) torsemide 10 mg tablet 30 mg PO BID gemfibrozil 600 mg tablet 600 mg PO BID pantoprazole 40 mg tablet,delayed release (DR/EC) 40 mg PO DAILY albuterol sulfate 90 mcg/actuation HFA aerosol inhaler 2 inh inhalation Q6HP PRN (Reason: shortness of breath or wheezing) rosuvastatin 40 mg tablet 40 mg PO DAILY ferrous gluconate 324 mg (38 mg iron) tablet 324 mg PO DAILY hydrocodone-acetaminophen 5-325 mg tablet 1 tab PO DAILY Qty: 30 0RF Problem Reconciliation Problems Reviewed?: Yes Patient Discharge Instructions ACTIVITY: Continue current activity DIET: continue same diet Patient Instructions: DI for Heart Failure, DI for Pneumonia -- Adult, DI for Atrial Fibrillation, Catheter-Associated Urinary Tract Infection Print Language: Gambian Providers Primary Care Provider: Andres Valencia Admit Provider: Crow Urena Attending Provider: Corw Urena
[2024-04-04] MEDS: BUMETANIDE 1 MG TABLET 0.5 MG PO (08:42)
[2024-04-04] MEDS: EMPAGLIFLOZIN 10MG TABLET 10 MG PO (08:43)
[2024-04-04] MEDS: IRBESARTAN 75MG TABLET 75 MG PO (08:43)
[2024-04-04] MEDS: DOCUSATE SODIUM 100 MG CAPSULE PO (08:43)
[2024-04-04] MEDS: PANTOPRAZOLE 40MG TABLET 40 MG PO (08:43)
[2024-04-04] MEDS: SPIRONOLACTONE 25MG TABLET 25 MG PO (08:43)
[2024-04-04] MEDS: ASCORBIC ACID 500MG TAB 500 MG PO (08:43)
[2024-04-04] MEDS: FERROUS SULFATE 325MG TABLET 325 MG PO (08:43)
[2024-04-04] MEDS: CLOPIDOGREL 75MG TAB 75 MG PO (08:43)
[2024-04-04] MEDS: CARVEDILOL 3.125MG TABLET 3.125 MG PO (08:43)
[2024-04-04] MEDS: RIVAROXABAN 15MG TABLET 15 MG PO (08:43)
[2024-04-04] MEDS: TAMSULOSIN 0.4MG CAPSULE 0.4 MG PO (08:43)
--- NOTE | 2024-04-04 10:12 | PC.NURSE ---
pt is refusing to receive his xerelto and jardiance from clinic pharmacy due to cost. MD contacted regarding other options, case management contacted for assistance. both spoke with pt regarding importance of medication compliance. cardiology visited with pt regarding need for life vest before discharge, as well as possibly getting a heart cath today. pt verbalized understanding
--- NOTE | 2024-04-04 10:36 | IR_ITS ---
APPROVED REPORT Patient Location: Inpatient Manufacturing Laborer: SHERI Puentes RT (R) PROCEDURES Right radial arterial access Catheter placement in the proximal radial artery Right radial artery retrograde angiogram INDICATION New onset cardiomyopathy, Anticipated left heart catheterization Informed consent was obtained prior to the procedure. COMPLICATIONS NONE Estimated Blood Loss: LESS THAN 10 ML TECHNIQUE 1% lidocaine used anesthetize the right anterior aspect of the right wrist the right radial artery was accessed via the Salinger technique and a 6 Vietnamese hydrophilic sheath was placed in the right radial artery. Angiography was performed in the proximal right radial artery which demonstrated a 360 degree turn of the radial artery. An advantage wire was advanced without difficulty straightening the vessel however it would not accommodate passage of the catheter. It was decided to abort the procedure and proceed tomorrow or the following day with right groin access. Patient is on Xarelto 15 mg daily and has renal insufficiency therefore is therapeutic making an elective right groin access heart catheterization ill-advised IMPRESSION 360 degree turn in the right radial artery making right radial access impossible PLAN 1. Plan right femoral arterial access heart cath tomorrow 2. Hold Xarelto tomorrow morning Electronically signed by : Jaquan Aly MD 04/04/2024 14:39:44
--- NOTE | 2024-04-04 10:37 | EXP.CARD.PN ---
Subjective Subjective Date: 04/04/24 Time: 10:37 Interval history: Feeling well. No events overnight. Echo showed EF 30% with new wall motion abnormalities. I discussed with patient and his the option of a predischarge heart cath and they would like to proceed Exam Data for Last 24 hours Vital signs and Labs for Last 24 Hours: Temp Pulse Resp BP Pulse Ox O2 Del Method O2 Flow Rate 97.6 F 68 20 114/62 96 Nasal Cannula 3 04/04/24 08:00 04/04/24 08:00 04/04/24 08:00 04/04/24 08:00 04/04/24 08:00 04/04/24 09:00 04/04/24 09:00 FiO2 32 04/01/24 19:21 Laboratory Results - last 24 hr 04/03/24 11:59: POC Glucose 429 H* 04/03/24 15:40: POC Glucose 213 H 04/04/24 05:02: POC Glucose 171 H I & O for Last 24 hours: Intake & Output 04/01/24 04/02/24 04/03/24 04/04/24 23:59 23:59 23:59 23:59 Intake Total 1040 / 1440 1890 / 1940 1130 / 1540 860 / 860 Output Total 3350 / 3350 700 / 700 0 / 0 Balance -2310 / -1910 1190 / 1240 1130 / 1540 860 / 860 Weight 212 lb 9.6 oz 213 lb 10.047 oz 211 lb 4.8 oz 211 lb 3.245 oz Microbiology Reports for the Last 24 Hours: Microbiology 03/31/24 10:41 Sputum - Expectorated Sputum Gram Stain - Final 03/31/24 10:41 Sputum - Expectorated Sputum Sputum Culture - Final Rothia mucilaginosa Staphylococcus epidermidis 03/31/24 02:31 Blood Blood Culture - Preliminary NO GROWTH AFTER 4 DAYS 03/31/24 02:04 Blood Blood Culture - Preliminary NO GROWTH AFTER 4 DAYS Constitutional Constitutional: no acute distress and cooperative *Routine HEENT Exam Eye: Present PERRL *Routine Respiratory Exam Respiratory: Present CTA bilaterally; Absent accessory muscle use, wheezes or crackles *Routine Cardiovascular Exam Cardiovascular: Present RRR, Normal S1 and Normal S2; Absent murmur, gallop or rubs *Routine Abdominal Exam Abdominal: Present soft; Absent tenderness *Routine Extremities Exam Extremities: Present pulses intact; Absent cyanosis or edema *Routine Skin Exam Skin: Present intact; Absent erythema or wounds *Routine Neurological Exam Neurological: Present alert and oriented X3 Routine Psychiatric Exam Psychiatric: Present cooperative Progress Note: A&P Assessment and plan (1) CKD stage 3a, GFR 45-59 ml/min: Status: Acute (2) New onset of congestive heart failure: Status: Acute (3) Acute non-ST elevation myocardial infarction (NSTEMI): Status: Acute (4) Iron deficiency anemia: Status: Acute (5) Respiratory failure: Status: Acute (6) Atrial fibrillation with rapid ventricular response: Status: Acute (7) Morbid obesity with BMI of 40.0-44.9, adult: Status: Acute (8) HFrEF (heart failure with reduced ejection fraction): Status: Acute Assessment and Plan Assessment and Plan for All Diagnoses:: Acute HFrEF -new dx this admissions (was previously HFpEF) -ECHO in 2021 showing biatrial enlargement, mild LVH, EF 50%, grade 2 diastolic dysfunction, mild RV enlargement, mild MR, mild TR -NYHA = 4 on presentation, currently 2-3 -On arrival here patient was hypoxic and orthopneic with proBNP of 24,000. Chest x-ray did not show edema but he did have peripheral edema on exam -Patient has diuresed 4 L and been placed on GDMT -Repeat echo here shows EF 30%, grade 2 diastolic dysfunction, severe hypokinesis of inferior LV wall, akinesis of inferoseptal LV wall, asynchronous septum trivial anterior pericardial effusion. -Findings are suggestive of new or worsening ischemia, recommend left heart cath -LifeVest approved, pt agreeable CAD status post CABG with NSTEMI -Patient presented with new CHF and elevated troponin at 0.35 which trended down. EKG shows left bundle branch block which is unchanged from 2021 -No ischemic evaluation in several years, patient was on Plavix at home -Continue Plavix, statin, beta-sohail, ASA, and ARB -Repeat echo shows EF now 30% and new WMA, recommend C, pt agreeable Paroxysmal atrial fibrillation -Known diagnosis for many years -Patient arrived not on AVB or OAC -He has been in sinus rhythm since admission -Continue beta-sohail and Xarelto Acute on chronic hypoxic respiratory failure, COPD - 60 pack years, on 4L/min at home - questionable infectious component this admission - nebs, steroids, ab per primary service CKD-III - baseline CR 1.5-2.2 over the past several years - daily labs, dose adjust meds PRN - stable DM-II - poorly controlled with A1C >10 on arrival - on SGLT2 - glucose control per primary service Hx of GI Bleeding - none recently - we discussed risks/benefits of DAPT/OAC, he is agreeable to proceed for now Pt clinically stable on GDMT at this time. Will proceed with [facility] today - further plans pending results.
--- NOTE | 2024-04-04 11:02 | PC.NURSE ---
spoke with Wyatt (son) on the phone explaining that his father would be receiving a life vest, and have a heart cath this afternoon. discussed the need for his mother to have assistance here with her ADLs, as we cannot legally help her since she is not a patient. I explained that since she is not a patient, we cannot do any intervention that puts her at risk for injury, such as walking her to the restroom. explained that his mother visiting is perfectly acceptable, but that she cannot be left unattended for long periods of time due to her extreme need for assistance. son is agreeable. expressed that he would be here shortly and would assume care for his mother.
--- NOTE | 2024-04-04 11:06 | PC.NURSE ---
Home Medications Jarrett Pemberton ?Medication ?Instructions ?Recorded ?Confirmed oxybutynin chloride 10 mg 10 mg PO DAILY 11/05/22 03/31/24 tablet,extended release 24 hr tamsulosin 0.4 mg capsule 0.4 mg PO DAILY 11/22/23 03/31/24 albuterol sulfate 90 mcg/actuation 2 inh inhalation Q6HP PRN 03/31/24 03/31/24 aerosol inhaler shortness of breath or wheezing benzonatate 200 mg capsule 200 mg PO TIDP PRN cough 03/31/24 03/31/24 ferrous gluconate 324 mg (38 mg 324 mg PO DAILY 03/31/24 03/31/24 iron) tablet gemfibrozil 600 mg tablet 600 mg PO BID 03/31/24 03/31/24 ipratropium 0.5 mg-albuterol 3 mg 3 ml inhalation QIDP PRN shortness 03/31/24 03/31/24 (2.5 mg base)/3 mL nebulization of breath or wheezing soln pantoprazole 40 mg tablet,delayed 40 mg PO DAILY 03/31/24 03/31/24 release rosuvastatin 40 mg tablet 40 mg PO DAILY 03/31/24 03/31/24 torsemide 10 mg tablet 30 mg PO BID 03/31/24 03/31/24 Previous Rx's ?Medication ?Instructions ?Recorded clopidogrel 75 mg tablet (Plavix) 75 mg PO DAILY #90 tabs 10/28/22 insulin regular hum U-500 conc 500 120 unit (0.24 mL) SQ BIDWMEAL 11/05/22 unit/mL(3 mL) subcut pen Diabetes 30 days #14.4 mL pen needle, diabetic 32 gauge x #100 ea 06/01/23 (BD Jayne 2nd Gen Pen Needle) gabapentin 300 mg capsule 300 mg PO BID Pain #60 caps 11/21/23 tiotropium 2.5 mcg-olodaterol 2.5 2 puff inhalation DAILY Breathing 11/21/23 mcg/actuation mist for inhalation problems #4 grams (Stiolto Respimat) hydrocodone 5 mg-acetaminophen 325 1 tab PO DAILY #30 tabs 03/21/24 mg tablet nystatin 100,000 unit/gram topical 1 applic topical TID #60 grams 03/22/24 cream azithromycin 500 mg tablet 500 mg PO DAILY 4 days #4 tabs 04/04/24 carvedilol 3.125 mg tablet 3.125 mg PO BID #90 tabs 04/04/24 cefdinir 300 mg capsule 300 mg PO BID #8 caps 04/04/24 empagliflozin 10 mg tablet 10 mg PO DAILY #90 tabs 04/04/24 (Jardiance) finasteride 5 mg tablet 5 mg PO HS #90 tabs 04/04/24 irbesartan 75 mg tablet 75 mg PO DAILY #90 tabs 04/04/24 rivaroxaban 20 mg tablet 20 mg PO PM #90 tabs 04/04/24 spironolactone 25 mg tablet 25 mg PO DAILY #90 tabs 04/04/24
[2024-04-04 12:15] LABS: POC Glucose,Bedside 179 (70-110)
--- NOTE | 2024-04-04 12:27 | PC.NURSE ---
pt received life vest and samples of mary kerr. pt now being taken down to cleaner laboratory equipment.
[2024-04-04 12:35] LABS: Basophils % 0.2 % (0.1-2.0); Eosinophils # 0.2 K/mm3 (0.0-0.4); Eosinophils % 1.5 % (0.1-12.0); Hematocrit 39.1 % (42.0-52.0); Hemoglobin 11.8 g/dL (14.1-18.0); Lymphocytes # 1.4 K/mm3 (0.7-4.5); Lymphocytes % 13.1 % (10-50); Mean Corpuscular HGB Conc 30.3 g/dL (31.8-35.4); Mean Corpuscular Hemoglobin 26.4 pg (27.0-31.2); Mean Corpuscular Volume 87.2 fl (80-94); Mean Platelet Volume 8.1 fl (7.4-10.4); Monocytes # 0.6 K/mm3 (0.1-1.0); Monocytes % 5.6 % (1.7-9.3); Neutrophils # 8.7 K/mm3 (1.8-7.8); Neutrophils % 79.6 % (37.0-80.0); Platelet Count 352 K/mm3 (142-424); Red Blood Count 4.48 M/mm3 (4.60-6.20); Red Cell Distribution Width 17.6 % (11.5-17.5); White Blood Count 10.9 K/mm3 (4.8-10.8)
[2024-04-04 12:44] LABS: Chloride 106 mmol/L (98-107)
[2024-04-04 12:45] LABS: Potassium 3.9 mmoL/L (3.5-5.1); Sodium 139 mmol/L (136-145)
[2024-04-04 12:47] LABS: Blood Urea Nitrogen 59 mg/dl (9-20)
[2024-04-04 12:48] LABS: Anion Gap 7.9 mEq/L (5-15); Calcium 8.5 mg/dl (8.4-10.2); Carbon Dioxide 29 mmol/L (22.0-30.0); Creatinine Clearance Estimated 45 mL/min (50-200); Estimated Glomerular Filt Rate 39 ml/min (>60); GFR (African American) 47 ML/MIN (>60); Glucose 165 mg/dl (74-100)
[2024-04-04] MEDS: VERAPAMIL 2.5MG/ML 2ML VIAL 2.5 MG IV (13:56)
[2024-04-04] MEDS: FENTANYL 100MCG/2ML VIAL 50 MCG IV (13:56)
[2024-04-04] MEDS: MIDAZOLAM HCL 1MG/1ML 5ML VIAL 1 MG IV (13:56)
[2024-04-04] MEDS: LIDOCAINE 1% 10ML MDV 20 ML IJ (13:56)
[2024-04-04] MEDS: HEPARIN 1,000 UNITS/ML 10ML VIAL (CATH LAB) 10000 UNIT IV (13:56)
[2024-04-04] MEDS: HEPARIN 1,000 UNITS/500ML NS (CATH LAB) 3000 UNIT IV (13:57)
[2024-04-04] MEDS: diphenhydrAMINE 50MG/ML VIAL 50 MG IV (13:57)
[2024-04-04] MEDS: NITROGLYCERIN 800MCG/8ML SYR (CATH LAB) 800 MCG IA (13:57)
[2024-04-04] MEDS: 0.9 % SODIUM CHLORIDE 500 ML 25 ML IV (13:57)
--- NOTE | 2024-04-04 15:04 | SUR.PHASEII ---
Procedure unsuccessful in radial artery, Dr Aly stated he will be rescheduled to tomorrow through his groin. Notified RN Lead to hold jacob for today and in AM.
[2024-04-04] MEDS: IOPAMIDOL-370 (76%);100ML BOTTLE 10 ML IV (15:33)
[2024-04-04 16:57] LABS: POC Glucose,Bedside 308 (70-110)
--- NOTE | 2024-04-04 19:02 | PC.NURSE ---
pt resting in bed. call light in reach and bed in low and locked position. pt has no complaints at this time. pt is to be discharged home stephanie.
--- NOTE | 2024-04-06 14:18 | CARE MANAGER ---
Attempted to contact patient x2 related to hospital discharge. No VM option. STACEY Connor
== END 2024-04-04 19:25 | disposition home health service (06) | DRG 280 ==
LOC: ER 03:11 → 2ND 04:07
PROVIDERS: Family Medicine; Internal Medicine; Physician Assistant; Admitting Provider Internal Medicine Adolescent Medicine; Emergency Provider Emergency Medicine; PCP Family Medicine; Visit Provider Internal Medicine Adolescent Medicine
PROC: B30N1ZZ Plain Radiography of Other Upper Arteries using Low Osmolar Contrast (ICD-10-PCS; principal; 2024-04-04 11:30)
DX: I50.33 Acute on chronic diastolic (congestive) heart failure (principal); J18.9 Pneumonia, unspecified organism; I21.A1 Myocardial infarction type 2; J44.1 Chronic obstructive pulmonary disease with (acute) exacerbation; J96.11 Chronic respiratory failure with hypoxia; Z68.41 Body mass index [BMI] 40.0-44.9, adult; I42.9 Cardiomyopathy, unspecified; I48.91 Unspecified atrial fibrillation; I25.10 Atherosclerotic heart disease of native coronary artery without angina pectoris; Z95.5 Presence of coronary angioplasty implant and graft; E11.65 Type 2 diabetes mellitus with hyperglycemia; J43.9 Emphysema, unspecified; I73.9 Peripheral vascular disease, unspecified; E11.22 Type 2 diabetes mellitus with diabetic chronic kidney disease; N18.31 Chronic kidney disease, stage 3a; D50.9 Iron deficiency anemia, unspecified; E66.01 Morbid (severe) obesity due to excess calories; Z87.891 Personal history of nicotine dependence; Z79.4 Long term (current) 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; E11.51 Type 2 diabetes mellitus with diabetic peripheral angiopathy without gangrene; Z20.822 Contact with and (suspected) exposure to COVID-19
CPT/HCPCS: 75710; 36415; 71045; 71250; 80048; 80053; 81001; 82607; 82803; 82947; 82962; 83036; 83540; 83550; 83605; 83735; 83880; 84145; 84484; 85007; 85025; 85027; 87040; 87070; 87077; 87081; 87186; 87205; 87265; 87486; 87581; 87632; 87635; 87636; 93005; 93306; 94640; 94660; 94761; 97163; 97165; 97530; 99152; 99285; C1725; C1760; C1769; J0456; J0696; J1200; J1644; J1650; J1756; J1939; J2250; J3010; J7030; J7050; J7620; Q9967

== ENCOUNTER 2024-04-14 14:13 | Observation (INO) | payer MEDICARE, SELFPAY ==
[2024-04-14] VITALS (10 sets, daily range): BP systolic 88–135; BP diastolic 40–51; PULSE 50–86; RESP 13–26; TEMP 36.6–36.8; O2SAT 93–98; BMI 36.9; BMI 34.4; BMI 34.5
--- NOTE | 2024-04-14 14:37 | XR_ITS ---
PROCEDURE INFORMATION: Exam: XR Chest Exam date and time: 04/14/2024 2:44 PM Age: 84 years old Clinical indication: Shortness of breath; Additional info: Pneumonia TECHNIQUE: Imaging protocol: Radiologic exam of the chest. Views: 1 view. COMPARISON: CR XR CHEST PORTABLE 04/02/2024 7:35 AM FINDINGS: Tubes, catheters and devices: Cardiac device overlies the chest Lungs: Mild opacities in the lung bases may represent atelectasis or pneumonia.. Pleural spaces: Unremarkable. No pleural effusion. No pneumothorax. Heart/Mediastinum: Unremarkable. No cardiomegaly. Bones/joints: Median sternotomy. The osseous structures are stable IMPRESSION: Mild opacities in the lung bases may represent atelectasis or pneumonia..
--- NOTE | 2024-04-14 14:46 | ED_ITS ---
Discharge Plan Disposition Patient Disposition: Still a Patient Prescriptions Prescriptions: No Action oxybutynin chloride 10 mg tablet extended release 24hr 10 mg PO DAILY insulin regular hum U-500 conc 500 unit/mL (3 mL) insulin pen 120 unit SQ BIDWMEAL 30 Days Qty: 14.4 10RF Stiolto Respimat 2.5-2.5 mcg/actuation mist 2 puff inhalation DAILY Qty: 4 12RF gabapentin 300 mg capsule 300 mg PO BID Qty: 60 5RF nystatin 100,000 unit/gram cream 1 applic topical TID Qty: 60 1RF fluconazole 100 mg tablet 100 mg PO DAILY clopidogrel [Plavix] 75 mg tablet 75 mg PO DAILY Qty: 90 3RF (DME) pen needle, diabetic [BD Jayne 2nd Gen Pen Needle] 32 gauge x 5/32 needle See Rx Instructions .ROUTE .COMPLEX Qty: 100 12RF Dose Instruction: USE WITH INSULIN INJECTIONS Rx Instructions: USE WITH INSULIN INJECTIONS tamsulosin 0.4 mg capsule 0.4 mg PO DAILY benzonatate 200 mg capsule 200 mg PO TIDP PRN (Reason: cough) Qty: 90 0RF gemfibrozil 600 mg tablet 600 mg PO BID Qty: 90 1RF ipratropium-albuterol 0.5 mg-3 mg(2.5 mg base)/3 mL solution for nebulization 3 ml INHALATION QIDP PRN (Reason: shortness of breath or wheezing) torsemide 10 mg tablet 30 mg PO BID pantoprazole 40 mg tablet,delayed release (DR/EC) 40 mg PO DAILY albuterol sulfate 90 mcg/actuation HFA aerosol inhaler 2 inh inhalation Q6HP PRN (Reason: shortness of breath or wheezing) rosuvastatin 40 mg tablet 40 mg PO DAILY ferrous gluconate 324 mg (38 mg iron) tablet 324 mg PO DAILY spironolactone 25 mg Tablet 25 mg PO DAILY Qty: 90 0RF Jardiance 10 mg Tablet 10 mg PO DAILY Qty: 90 0RF carvedilol 3.125 mg Tablet 3.125 mg PO BID Qty: 90 0RF irbesartan 75 mg Tablet 75 mg PO DAILY Qty: 90 0RF finasteride 5 mg Tablet 5 mg PO HS Qty: 90 0RF azithromycin 500 mg tablet 500 mg PO DAILY 4 Days Qty: 4 0RF cefdinir 300 mg capsule 300 mg PO BID Qty: 8 0RF Xarelto 15 mg Tablet 15 mg PO QPMWITHMEAL Qty: 60 0RF hydrocodone-acetaminophen 5-325 mg tablet 1 tab PO DAILY Qty: 30 0RF Referrals Follow up/Referrals: Andres Valencia MD [Primary Care Provider] - See instructions Print Language Print Language: Maltese Discharge ED Provider: Arlin Cloud [facility] [place] HPI General Stated complaint: home health nurse states vitals are off Mode of Arrival: Ambulatory Source of Information: Patient Limitations: No Limitations Time Seen by Provider: 04/14/24 14:46 Description of Symptoms (Recalled from Triage Doc. by RN): PATIENT STATES HE WAS SENT HERE BY HOME HEALTH NURSE BECAUSE HIS VITALS WERE BAD . PATIENT C/O DIZZINESS AND WEAKNESS SINCE YESTERDAY. HIS SON REPORTS PATIENT WAS ADMITTED TO HOSPITAL LAST WEEK WITH PNEUMONIA AND A-FIB. PATIENT STATES HE DOES NOT FEEL ANY BETTER SINCE GETTING OUT OF HOSPITAL HEENT Symptoms (Recalled from RN notes): No Resp Symptoms (Recalled from RN notes): Yes Skin Symptoms (Recalled from RN notes): No MS Symptoms (Recalled from RN notes): No Functional Status (Recalled from RN notes): WNL History of Present Illness Provider Complaint: 84-year-old male presents for checkup. Patient states he was sent in by his home health nurse because his bottles were bad . Patient states he was just admitted to the hospital last week for pneumonia and A-fib and he has not felt any better since getting out of the hospital. Patient states today he feels dizzy and weak and not self. Son states he is wearing a LifeVest and it has alerted, but he has really adjusted and is waiting to see if it alarms again. Related Data Home Medications ?Medication ?Instructions ?Recorded ?Confirmed oxybutynin chloride 10 mg 10 mg PO DAILY 11/05/22 04/10/24 tablet,extended release 24 hr tamsulosin 0.4 mg capsule 0.4 mg PO DAILY 11/22/23 04/10/24 albuterol sulfate 90 mcg/actuation 2 inh inhalation Q6HP PRN 03/31/24 04/10/24 aerosol inhaler shortness of breath or wheezing ferrous gluconate 324 mg (38 mg 324 mg PO DAILY 03/31/24 04/10/24 iron) tablet ipratropium 0.5 mg-albuterol 3 mg 3 ml inhalation QIDP PRN shortness 03/31/24 04/10/24 (2.5 mg base)/3 mL nebulization of breath or wheezing soln pantoprazole 40 mg tablet,delayed 40 mg PO DAILY 03/31/24 04/10/24 release rosuvastatin 40 mg tablet 40 mg PO DAILY 03/31/24 04/10/24 torsemide 10 mg tablet 30 mg PO BID 03/31/24 04/10/24 fluconazole 100 mg tablet 100 mg PO DAILY 04/10/24 04/10/24 Previous Rx's ?Medication ?Instructions ?Recorded clopidogrel 75 mg tablet (Plavix) 75 mg PO DAILY #90 tabs 10/28/22 insulin regular hum U-500 conc 500 120 unit (0.24 mL) SQ BIDWMEAL 11/05/22 unit/mL(3 mL) subcut pen Diabetes 30 days #14.4 mL pen needle, diabetic 32 gauge x #100 ea 06/01/23 (BD Jayne 2nd Gen Pen Needle) gabapentin 300 mg capsule 300 mg PO BID Pain #60 caps 11/21/23 tiotropium 2.5 mcg-olodaterol 2.5 2 puff inhalation DAILY Breathing 11/21/23 mcg/actuation mist for inhalation problems #4 grams (Stiolto Respimat) hydrocodone 5 mg-acetaminophen 325 1 tab PO DAILY #30 tabs 03/21/24 mg tablet nystatin 100,000 unit/gram topical 1 applic topical TID #60 grams 03/22/24 cream azithromycin 500 mg tablet 500 mg PO DAILY 4 days #4 tabs 04/04/24 carvedilol 3.125 mg tablet 3.125 mg PO BID #90 tabs 04/04/24 cefdinir 300 mg capsule 300 mg PO BID #8 caps 04/04/24 empagliflozin 10 mg tablet 10 mg PO DAILY #90 tabs 04/04/24 (Jardiance) finasteride 5 mg tablet 5 mg PO HS #90 tabs 04/04/24 irbesartan 75 mg tablet 75 mg PO DAILY #90 tabs 04/04/24 rivaroxaban 15 mg tablet (Xarelto) 15 mg PO QPMWITHMEAL #60 tabs 04/04/24 spironolactone 25 mg tablet 25 mg PO DAILY #90 tabs 04/04/24 benzonatate 200 mg capsule 200 mg PO TIDP PRN cough #90 caps 04/11/24 gemfibrozil 600 mg tablet 600 mg PO BID #90 tabs 04/13/24 Allergies Allergy/AdvReac Type Severity Reaction Status Date / Time oxycodone Allergy Intermediate I-RASH Verified 04/10/24 11:59 Sulfa (Sulfonamide Allergy Unknown Unknown Verified 04/10/24 11:59 Antibiotics) allergy reaction aspirin AdvReac Intermediate Other Verified 04/10/24 11:59 Worker's Comp Is this a Worker's Comp case?: No [facility] Disclaimer: The information contained in this section may have been updated after the patient was seen, as this information can be updated by other users. Medical History , [employer]) Morbid obesity with BMI of 40.0-44.9, adult CKD stage 3a, GFR 45-59 ml/min Iron deficiency anemia Multiple pulmonary nodules Chronic hypoxemic respiratory failure COPD (chronic obstructive pulmonary disease) Pulmonary emphysema Stopped smoking with greater than 30 pack year history Lung nodule Dyspnea on exertion Sleep apnea Diabetes mellitus Abnormal EKG Atypical angina JUAN FRANCISCO (cerebral atherosclerosis) Edema Pre-op evaluation Claudication Paroxysmal atrial fibrillation HHD (hypertensive heart disease) Surgical History , [employer]) History of prostate surgery History of heart artery stent Family History , [employer]) Diabetes Coronary artery disease Anemia Hyperlipidemia Heart attack Hypertension Stroke Social History , [employer]) Smoking Status: Former smoker tobacco type: cigarettes packs per day: 2 second hand exposure: No alcohol intake: never substance use type: denies use current occupational status: retired Travel in the last 8 weeks: None household members: spouse housing: house current occupational exposures/hazards: No caffeine: Yes ROS Obtained: Yes Systems reviewed as appropriate & no additional complaints except as documented Physical Exam General General appearance: alert and in distress Eye Eye exam: Present normal appearance and PERRL ENT ENT exam: Present normal exam Respiratory Respiratory exam: Present other Expanded Respiratory Exam Location: Right: decreased breath sounds and Lower: decreased breath sounds Cardiovascular Cardiovascular exam: Present irregular rhythm and other (life Vest present) Neurological Exam Neurological exam: Present alert Expanded Neurological Exam Coma scale verbal response: Confused Comment: Patient keeps flopping head back while sitting in the wheelchair states he is just very very dizzy. Skin Skin exam: Present warm Medical Decision Making Medical Records Medical records reviewed: Yes I reviewed the patient's medical records. Bill Inquiry Pt receiving controlled substance: No Bill was queried for this patient: No Vital Signs: 04/14/24 14:25 Temperature 98.2 F Temperature Source Oral Pulse Rate [Right Brachial] 86 Respiratory Rate 24 Blood Pressure [Right Arm] 88/40 L Blood Pressure Mean [Right Arm] 56 Blood Pressure Source [Right Arm] Manual Cuff/ Auscultation Blood Pressure Position [Right Arm] Sitting 02 Sat by Pulse Oximetry 93 L Oxygen Delivery Method Room Air Orders (Tests/Meds): ORDERS Category Date Time Status Chest XR AP view [XR chest AP] Stat Exams 04/14/24 14:37 Ordered CBC Man Diff [Complete Blood Count Man Dif] Stat Lab 04/14/24 14:37 Ordered CMP [Comprehensive Metabolic Panel] Stat Lab 04/14/24 14:37 Ordered Cardiac Enzymes Stat Lab 04/14/24 14:40 Ordered Lactic Acid Stat Lab 04/14/24 14:37 Ordered EKG Request [ECG Request] Stat Y 04/14/24 14:39 Ordered Medical Decision Narrative: While attempting to obtain an IV and EKG coughing and began to shake all over and a seizure-like activity but was instantly able to follow commands. Spoke with Branden Ventura patient sent to the ER for evaluation report given
--- NOTE | 2024-04-14 15:11 | ECG_ITS ---
APPROVED REPORT Exam: Resting ECG HR:73 bpm ECG Measurements Heart Rate 73 AXES NE 103 P -69 QRSd 141 QRS 61 QT 402 T 203 QTc 427 Conclusion JUNCTIONAL RHYTHM WITH FREQUENT SUPRAVENTRICULAR PREMATURE COMPLEXES INTRAVENTRICULAR CONDUCTION DELAY [130+ ms QRS DURATION] ABNORMAL ECG Electronically signed by : ANNMARIE ARAGON, 04/14/2024 15:54:50
--- NOTE | 2024-04-14 15:44 | PC.NURSE ---
Pt difficult stick. Waiting on [facility] worker to come do u/s guided iv
[2024-04-14 15:50] LABS: Albumin Level 3.5 g/dl (3.5-5.0); Chloride 105 mmol/L (98-107); Sodium 134 mmol/L (136-145)
[2024-04-14 15:52] LABS: Blood Urea Nitrogen 23 mg/dl (9-20); Creatinine Clearance Estimated 54 mL/min (50-200); Estimated Glomerular Filt Rate 39 ml/min (>60); GFR (African American) 47 ML/MIN (>60)
[2024-04-14 15:53] LABS: Alanine Aminotransferase 30 U/L (12-78); Albumin/Globulin Ratio 1.2 (1.1-1.8); Alkaline Phosphatase 46 U/L (38-126); Anion Gap 12.3 mEq/L (5-15); Aspartate Amino Transferase 81 U/L (17-59); Bilirubin,Total 1.6 mg/dl (0.2-1.3); Carbon Dioxide 23 mmol/L (22.0-30.0); Creatine Kinase 100 U/L (55-170); Glucose 184 mg/dl (74-100); Total Protein,Serum 6.5 g/dl (6.3-8.2)
[2024-04-14 15:56] LABS: Potassium 6.3 mmoL/L (3.5-5.1)
--- NOTE | 2024-04-14 15:58 | PC.NURSE ---
Maria E Beckman in LAB called critical potassium of 6.3. Dr. Cloud notified.
[2024-04-14 16:02] LABS: CKMB Relative Index 1.3 U/L (0-4.0); Creatine Kinase MB 1.3 ng/ml (0.0-2.03)
[2024-04-14 16:05] LABS: Troponin I 0.04 ng/ml (0.00-0.034)
--- NOTE | 2024-04-14 16:06 | HMH.EDGENADL ---
Discharge Plan Disposition Patient Disposition: Still a Patient Clinical Impressions Clinical Impression: HFrEF (heart failure with reduced ejection fraction), Acute decompensated heart failure, Acute hypotension, Myocardial injury Discharge ED Provider: Arlin Cloud General Adult HPI General Chief complaint: Weakness Stated complaint: home health nurse states vitals are off Time Seen by Provider: 04/14/24 14:46 Mode of Arrival: Wheelchair Source of Information: Patient Limitations: No Limitations Description of Symptoms (Recalled from ER Triage Doc. by RN): pt states his home health nurse sent him in due to dizziness, weakness, and hypotension. pt denies pain. pt was d/c from this hospital last week with PNA and AFIB wearing a life vest. while being assessed in the [facility] he had a coughing spell while being stuck for an IV and vagaled having a near syncope incident. pt is very cantankerous and demanding thus hard to assess. BSFS 301 History of Present Illness HPI narrative: Patient is an 84-year-old male presenting today with hypotension and worsening shortness of breath. He was recently admitted for an NSTEMI found to have new onset of heart failure reduced ejection fraction with an ejection fraction of 30%. His ejection fraction had been 50% in 2021. He was offered a heart cath had a radial artery approach that was attempted however this was unsuccessful and patient opted to schedule outpatient catheterization management per notes. He was also not a candidate at the time for an implantable device and was placed on a LifeVest which she is currently wearing. He denies any shocks. States that home health found that he was significantly hypotensive which is new for him and he states that his overall symptoms and energy and shortness of breath have significantly worsened. Related Data Home Medications ?Medication ?Instructions ?Recorded ?Confirmed oxybutynin chloride 10 mg 10 mg PO DAILY 11/05/22 04/14/24 tablet,extended release 24 hr tamsulosin 0.4 mg capsule 0.4 mg PO DAILY 11/22/23 04/10/24 albuterol sulfate 90 mcg/actuation 2 inh inhalation Q6HP PRN 03/31/24 04/10/24 aerosol inhaler shortness of breath or wheezing ferrous gluconate 324 mg (38 mg 324 mg PO DAILY 03/31/24 04/10/24 iron) tablet ipratropium 0.5 mg-albuterol 3 mg 3 ml inhalation QIDP PRN shortness 03/31/24 04/10/24 (2.5 mg base)/3 mL nebulization of breath or wheezing soln pantoprazole 40 mg tablet,delayed 40 mg PO DAILY 03/31/24 04/14/24 release rosuvastatin 40 mg tablet 40 mg PO DAILY 03/31/24 04/14/24 torsemide 10 mg tablet 30 mg PO BID 03/31/24 04/14/24 fluconazole 100 mg tablet 100 mg PO DAILY 04/10/24 04/10/24 Previous Rx's ?Medication ?Instructions ?Recorded clopidogrel 75 mg tablet (Plavix) 75 mg PO DAILY #90 tabs 10/28/22 insulin regular hum U-500 conc 500 120 unit (0.24 mL) SQ BIDWMEAL 11/05/22 unit/mL(3 mL) subcut pen Diabetes 30 days #14.4 mL pen needle, diabetic 32 gauge x #100 ea 06/01/23 (BD Jayne 2nd Gen Pen Needle) gabapentin 300 mg capsule 300 mg PO BID Pain #60 caps 11/21/23 tiotropium 2.5 mcg-olodaterol 2.5 2 puff inhalation DAILY Breathing 11/21/23 mcg/actuation mist for inhalation problems #4 grams (Stiolto Respimat) hydrocodone 5 mg-acetaminophen 325 1 tab PO DAILY #30 tabs 03/21/24 mg tablet nystatin 100,000 unit/gram topical 1 applic topical TID #60 grams 03/22/24 cream azithromycin 500 mg tablet 500 mg PO DAILY 4 days #4 tabs 04/04/24 carvedilol 3.125 mg tablet 3.125 mg PO BID #90 tabs 04/04/24 empagliflozin 10 mg tablet 10 mg PO DAILY #90 tabs 04/04/24 (Jardiance) finasteride 5 mg tablet 5 mg PO HS #90 tabs 04/04/24 irbesartan 75 mg tablet 75 mg PO DAILY #90 tabs 04/04/24 rivaroxaban 15 mg tablet (Xarelto) 15 mg PO QPMWITHMEAL #60 tabs 04/04/24 spironolactone 25 mg tablet 25 mg PO DAILY #90 tabs 04/04/24 benzonatate 200 mg capsule 200 mg PO TIDP PRN cough #90 caps 04/11/24 gemfibrozil 600 mg tablet 600 mg PO BID #90 tabs 04/13/24 Allergies Allergy/AdvReac Type Severity Reaction Status Date / Time oxycodone Allergy Intermediate I-RASH Verified 04/10/24 11:59 Sulfa (Sulfonamide Allergy Unknown Unknown Verified 04/10/24 11:59 Antibiotics) allergy reaction aspirin AdvReac Intermediate Other Verified 04/10/24 11:59 [facility] Disclaimer: The information contained in this section may have been updated after the patient was seen, as this information can be updated by other users. Medical History Morbid obesity with BMI of 40.0-44.9, adult CKD stage 3a, GFR 45-59 ml/min Iron deficiency anemia Multiple pulmonary nodules Chronic hypoxemic respiratory failure COPD (chronic obstructive pulmonary disease) Pulmonary emphysema Stopped smoking with greater than 30 pack year history Lung nodule Dyspnea on exertion Sleep apnea Diabetes mellitus Abnormal EKG Atypical angina JUAN FRANCISCO (cerebral atherosclerosis) Edema Pre-op evaluation Claudication Paroxysmal atrial fibrillation HHD (hypertensive heart disease) Surgical History History of prostate surgery History of heart artery stent Family History Other Anemia Coronary artery disease Diabetes Heart attack Hyperlipidemia Hypertension Stroke Social History Smoking Status: Unknown if ever smoked second hand exposure: No alcohol intake: never substance use type: denies use current occupational status: retired Travel in the last 8 weeks: None household members: spouse housing: house current occupational exposures/hazards: No caffeine: Yes ROS Obtained: Yes All systems reviewed & no additional complaints except as documented Physical Exam General General appearance: alert and in distress Respiratory Respiratory exam: Present normal lung sounds bilaterally; Absent respiratory distress Cardiovascular Cardiovascular exam: Present regular rate and normal rhythm Neurological Exam Neurological exam: Present alert and oriented X3 Medical Decision Making Bill Inquiry Pt receiving controlled substance: No Vital Signs: 04/14/24 14:25 04/14/24 15:30 04/14/24 15:55 Temperature 98.2 F 97.8 F Temperature Source Oral Oral Pulse Rate Pulse Rate [Right Brachial] 86 70 Respiratory Rate 24 15 16 Blood Pressure 90/51 L Blood Pressure [Right Arm] 88/40 L 90/51 L Blood Pressure Mean [Right Arm] 56 64 Blood Pressure Source [Right Arm] Manual Cuff/ Auscultation Blood Pressure Position [Right Arm] Sitting 02 Sat by Pulse Oximetry 93 L 96 Oxygen Delivery Method Room Air Room Air Oxygen Flow Rate (LPM) 04/14/24 16:31 04/14/24 17:31 04/14/24 18:02 Temperature Temperature Source Pulse Rate 57 L Pulse Rate [Right Brachial] Respiratory Rate 13 17 26 H Blood Pressure 108/48 L 109/48 L 135/42 L Blood Pressure [Right Arm] Blood Pressure Mean [Right Arm] Blood Pressure Source [Right Arm] Blood Pressure Position [Right Arm] 02 Sat by Pulse Oximetry 96 Oxygen Delivery Method Nasal Cannula Oxygen Flow Rate (LPM) 2 04/14/24 18:42 04/14/24 18:48 04/14/24 18:53 Temperature 98.2 F Temperature Source Oral Pulse Rate Pulse Rate [Right Brachial] 60 Respiratory Rate 21 Blood Pressure Blood Pressure [Right Arm] 135/42 L Blood Pressure Mean [Right Arm] 73 Blood Pressure Source [Right Arm] Automatic Cuff Blood Pressure Position [Right Arm] Supine 02 Sat by Pulse Oximetry 98 Oxygen Delivery Method Nasal Cannula Nasal Cannula Nasal Cannula Oxygen Flow Rate (LPM) 2 2 2 04/14/24 18:59 Temperature 98.2 F Temperature Source Pulse Rate 57 L Pulse Rate [Right Brachial] Respiratory Rate 20 Blood Pressure 135/42 L Blood Pressure [Right Arm] Blood Pressure Mean [Right Arm] Blood Pressure Source [Right Arm] Blood Pressure Position [Right Arm] 02 Sat by Pulse Oximetry Oxygen Delivery Method Nasal Cannula Oxygen Flow Rate (LPM) 2 Lab Data Lab results reviewed: Yes I reviewed the patient's lab results. Lab Results 04/14/24 15:32: Sodium 134 L, Potassium 6.3 H*, Chloride 105, Carbon Dioxide 23, Anion Gap 12.3, BUN 23 H, Creatinine 1.70 H, Estimated Creat Clear 54, Estimated GFR 39 L, Est GFR ( Amer) 47 L, Glucose 184 H, Calcium 8.0 L, Magnesium 1.9, Total Bilirubin 1.6 H, AST 81 H, ALT 30, Alkaline Phosphatase 46, Total Creatine Kinase 100, CK-MB (CK-2) 1.3, CK-MB (CK-2) Rel Index 1.3, Troponin I 0.04 H 04/14/24 15:32: Troponin I 0.04 H, NT-Pro-B Natriuret Pep 3520 H, Total Protein 6.5, Albumin 3.5, Globulin 3.0, Albumin/Globulin Ratio 1.2 04/14/24 16:26: WBC 5.6, RBC 4.06 L, Hgb 10.6 L, Hct 36.3 L, MCV 89.5, MCH 26.2 L, MCHC 29.2 L, RDW 18.7 H, Plt Count 259, MPV 7.9, Neut % (Auto) 69.7, Lymph % (Auto) 18.3, Aiken % (Auto) 10.4 H, Eos % (Auto) 0.3, Baso % (Auto) 1.2, Neut # (Auto) 3.9, Lymph # (Auto) 1.0, Aiken # (Auto) 0.6, Eos # (Auto) 0.0, Baso # (Auto) 0.1, Sodium 137, Potassium 4.5 D, Chloride 103, Carbon Dioxide 30, Anion Gap 8.5, BUN 24 H, Creatinine 1.90 H, Estimated Creat Clear 42, Estimated GFR 34 L, Est GFR ( Amer) 41 L, Glucose 118 H D, Lactate 1.5, Calcium 8.4, Total Bilirubin 0.6, AST 35 D, ALT 24, Alkaline Phosphatase 91, Total Protein 6.4, Albumin 3.5, Globulin 2.9, Albumin/Globulin Ratio 1.2 04/14/24 16:26 04/14/24 16:26 Orders (Tests/Meds): ED MEDICATIONS Generic Name Dose Route Start Last Admin Trade Name Freq PRN Reason Stop Dose Admin Hydrocodone Bitart/Acetaminophen 1 tab 04/14/24 19:34 Hydrocodone/Apap 5/325 Mg Tablet PO 05/14/24 19:33 Q8HP PRN Moderate to Severe Pain (4-10) Albuterol/Ipratropium 3 ml 04/15/24 00:00 Ipratropium/Albuterol 3 Ml Neb IH 05/15/24 00:00 Q6RT MARYAN Atorvastatin Calcium 80 mg 04/14/24 21:00 04/14/24 20:47 Atorvastatin 40mg Tablet PO 05/14/24 20:59 80 mg HS MARYAN Administration Bumetanide 1 mg 04/15/24 09:00 Bumetanide 1mg/4ml Vial IV 05/15/24 08:59 DAILY [facility] Carvedilol 3.125 mg 04/14/24 21:00 04/14/24 20:48 Carvedilol 3.125mg Tablet PO 05/14/24 20:59 3.125 mg BID MARYAN Administration Empagliflozin 10 mg 04/15/24 09:00 Empagliflozin 10mg Tablet PO 05/15/24 08:59 DAILY MARYAN Finasteride 5 mg 04/14/24 21:00 04/14/24 20:48 Finasteride 5mg Tablet PO 05/14/24 20:59 Not Given HS MARYAN Gabapentin 300 mg 04/14/24 21:00 04/14/24 20:48 Gabapentin 300mg Capsule PO 05/14/24 20:59 300 mg BID MARYAN Administration Insulin Glargine 20 unit 04/14/24 21:00 04/14/24 21:11 Insulin Glargine 100 Units/Ml 3ml Flexpen SQ 05/14/24 20:59 Not Given HS MARYAN Insulin Human Lispro 0 unit 04/14/24 21:00 04/14/24 20:18 Humalog 100 Units/Ml 10ml Vial (Ssi) SQ 05/14/24 20:59 Not Given ACHS [facility] Protocol Pantoprazole Sodium 40 mg 04/15/24 09:00 Pantoprazole 40mg Tablet PO 05/15/24 08:59 DAILY [facility] Spironolactone 25 mg 04/15/24 09:00 Spironolactone 25mg Tablet PO 05/15/24 08:59 DAILY [facility] Tamsulosin HCl 0.4 mg 04/15/24 09:00 Tamsulosin 0.4mg Capsule PO 05/15/24 08:59 DAILY [facility] ORDERS Category Date Time Status Chest XR AP view [XR chest AP] Stat Exams 04/14/24 14:37 Completed POCUS Point of Care (ER Only) Stat Exams 04/14/24 16:00 Completed BNP [NT Pro Brain Natriuretic Pep.] Stat Lab 04/14/24 15:32 Completed CMP [Comprehensive Metabolic Panel] Stat Lab 04/14/24 15:32 Completed Cardiac Enzymes Stat Lab 04/14/24 15:32 Completed Complete Blood Count Auto Diff AMLAB Lab 04/15/24 06:00 Ordered Complete Blood Count Auto Diff Routine Lab 04/14/24 16:26 Completed Comprehensive Metabolic Panel AMLAB Lab 04/15/24 06:00 Ordered Comprehensive Metabolic Panel Routine Lab 04/14/24 16:26 Completed Lactic Acid Stat Lab 04/14/24 16:26 Completed Magnesium AMLAB Lab 04/15/24 06:00 Ordered Magnesium Stat Lab 04/14/24 15:32 Completed Trop I [Troponin I] Stat Lab 04/14/24 15:32 Completed Troponin I Q3H Lab 04/14/24 19:30 Completed Troponin I Q3H Lab 04/14/24 22:15 Received Medical Decision Narrative: 84-year-old with hypotension in the setting of heart failure reduced ejection fraction currently wearing a LifeVest. May need inotropic support does not have any evidence clinically of shock at this point. Will do a bedside echo to take a look at what his ejection fraction is today. He denies any chest pain that led up to today and states that his overall energy level and shortness of breath has worsened. He unsuccessfully had a heart cath recently and may need to be admitted for a groin approach. Also may need an AICD at this point. I will discuss the case with Dr. Aly after initial workup is complete. He is very stable in appearance at the moment. Patient's MAP remains around 65 no evidence of shock clinically. Patient is persistently hypotensive and states that his overall symptoms have worsened. Bedside ultrasound was done which shows an EF that is similar to what was recently demonstrated his last hospitalization but he also has some pulmonary edema. Chest x-ray performed to person interpreted shows bilateral small pleural effusions and pulmonary edema. I spoke with Dr. Aly about his case and given the fact that they unsuccessfully are able to do a cath largely due to his ongoing anticoagulation we have advised that the patient stop his anticoagulation and put him in the hospital Dr. Aly would like to cath him on Tuesday. I spoke with Dr. Urena who is agreeable and aware of this plan. Critical Care Critical Care Time Critical Care Time: No
--- NOTE | 2024-04-14 16:09 | PC.NURSE ---
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 pt was speaking directly to me and E.N. medic
[2024-04-14 16:14] LABS: Magnesium 1.9 mg/dl (1.6-2.3)
--- NOTE | 2024-04-14 16:16 | PC.NURSE ---
Dr. Cloud at [facility] to start u/s guided IV
--- NOTE | 2024-04-14 16:20 | PC.NURSE ---
Notified LAB that Dr. Cloud would like to repeat the BMP on new blood
[2024-04-14 16:24] LABS: NT Pro Brain Natriuretic Pep. 3520 pg/mL (0-450)
[2024-04-14 16:27] LABS: Troponin I 0.04 ng/ml (0.00-0.034)
--- NOTE | 2024-04-14 16:40 | P.HP_ITS ---
History of Present Illness *Admission Date: 04/14/24 *Reason for visit:: dyspnea *History of present illness: Mr. Pemberton is an 84-year-old male with complex past medical history including worsening heart failure with reduced ejection fraction, chronic hypoxemic respiratory failure due to COPD on 3 to 4 L oxygen at home, obesity, uncontrolled diabetes, CKD, hypertension, PA H, difficulty with medication compliance, neuropathy. He presented to the ER with report of dizziness, weakness, shortness of breath. States he has been feeling more weak since last admission. Home health sent him to the ER because of dizziness and hypotension. He denies chest pain, nausea, vomiting. Has previously been admitted twice in the past month for pneumonia, A-fib, heart failure. Prior to coming to the ER, had a near syncopal event at the [facility]. On evaluation in the ER, patient's blood pressure soft with MAP 60-65, systolic blood pressure 90. Alert and oriented and perfusing well. Labs obtained showing kidney function at or better than his baseline. Tolerating 2 to 3 L nasal cannula oxygen. Cardiology was consulted and recommended admission for evaluation given more symptomatology with his heart failure. Medicine consulted for admission and further management. On evaluation, patient reports to me that he has just been feeling more weak and fatigued. Has not been using his inhalers. Is comfortable on room air up to 2 L at rest but necessitates oxygen when he exerts himself. States he can barely walk across the room without getting short of breath and this is worse in the past 1 to 2 weeks. Of note, on exam he looks the same if not somewhat subjectively better than my last exam on him 2 weeks ago. [facility] Disclaimer: The information contained in this section may have been updated after the patient was seen, as this information can be updated by other users. Medical History Morbid obesity with BMI of 40.0-44.9, adult CKD stage 3a, GFR 45-59 ml/min Iron deficiency anemia Multiple pulmonary nodules Chronic hypoxemic respiratory failure COPD (chronic obstructive pulmonary disease) Pulmonary emphysema Stopped smoking with greater than 30 pack year history Lung nodule Dyspnea on exertion Sleep apnea Diabetes mellitus Abnormal EKG Atypical angina [place] (cerebral atherosclerosis) Edema Pre-op evaluation Claudication Paroxysmal atrial fibrillation HHD (hypertensive heart disease) Surgical History History of prostate surgery History of heart artery stent Family History Other Anemia Coronary artery disease Diabetes Heart attack Hyperlipidemia Hypertension Stroke Social History Smoking Status: Unknown if ever smoked second hand exposure: No alcohol intake: never substance use type: denies use current occupational status: retired Travel in the last 8 weeks: None household members: spouse housing: house current occupational exposures/hazards: No caffeine: Yes Review of Systems Review of Systems Review of systems (narrative): 14 point review of systems performed, pertinent positives and negatives as per HPI Meds Home Medications and Allergies Home Medications ?Medication ?Instructions ?Recorded ?Confirmed ?Type clopidogrel 75 mg tablet (Plavix) 75 mg PO DAILY #90 tabs 10/28/22 04/10/24 Rx insulin regular hum U-500 conc 500 120 unit (0.24 mL) SQ BIDWMEAL 11/05/22 04/10/24 Rx unit/mL(3 mL) subcut pen Diabetes 30 days #14.4 mL oxybutynin chloride 10 mg 10 mg PO DAILY 11/05/22 04/14/24 History tablet,extended release 24 hr pen needle, diabetic 32 gauge x #100 ea 06/01/23 04/10/24 Rx 5/32 (BD Jayne 2nd Gen Pen Needle) gabapentin 300 mg capsule 300 mg PO BID Pain #60 caps 11/21/23 04/14/24 Rx tiotropium 2.5 mcg-olodaterol 2.5 2 puff inhalation DAILY Breathing 11/21/23 04/10/24 Rx mcg/actuation mist for inhalation problems #4 grams (Stiolto Respimat) tamsulosin 0.4 mg capsule 0.4 mg PO DAILY 11/22/23 04/10/24 History hydrocodone 5 mg-acetaminophen 325 1 tab PO DAILY #30 tabs 03/21/24 04/14/24 Rx mg tablet nystatin 100,000 unit/gram topical 1 applic topical TID #60 grams 03/22/24 04/14/24 Rx cream albuterol sulfate 90 mcg/actuation 2 inh inhalation Q6HP PRN 03/31/24 04/10/24 History aerosol inhaler shortness of breath or wheezing ferrous gluconate 324 mg (38 mg 324 mg PO DAILY 03/31/24 04/10/24 History iron) tablet ipratropium 0.5 mg-albuterol 3 mg 3 ml inhalation QIDP PRN shortness 03/31/24 04/10/24 History (2.5 mg base)/3 mL nebulization of breath or wheezing soln pantoprazole 40 mg tablet,delayed 40 mg PO DAILY 03/31/24 04/14/24 History release rosuvastatin 40 mg tablet 40 mg PO DAILY 03/31/24 04/14/24 History torsemide 10 mg tablet 30 mg PO BID 03/31/24 04/14/24 History azithromycin 500 mg tablet 500 mg PO DAILY 4 days #4 tabs 04/04/24 04/10/24 Rx carvedilol 3.125 mg tablet 3.125 mg PO BID #90 tabs 04/04/24 04/14/24 Rx empagliflozin 10 mg tablet 10 mg PO DAILY #90 tabs 04/04/24 04/10/24 Rx (Jardiance) finasteride 5 mg tablet 5 mg PO HS #90 tabs 04/04/24 04/14/24 Rx irbesartan 75 mg tablet 75 mg PO DAILY #90 tabs 04/04/24 04/14/24 Rx rivaroxaban 15 mg tablet (Xarelto) 15 mg PO QPMWITHMEAL #60 tabs 04/04/24 04/14/24 Rx spironolactone 25 mg tablet 25 mg PO DAILY #90 tabs 04/04/24 04/14/24 Rx fluconazole 100 mg tablet 100 mg PO DAILY 04/10/24 04/10/24 History benzonatate 200 mg capsule 200 mg PO TIDP PRN cough #90 caps 04/11/24 Rx gemfibrozil 600 mg tablet 600 mg PO BID #90 tabs 04/13/24 04/14/24 Rx New Prescriptions to Start Prescriptions: Allergies Allergy/AdvReac Type Severity Reaction Status Date / Time oxycodone Allergy Intermediate I-RASH Verified 04/10/24 11:59 Sulfa (Sulfonamide Allergy Unknown Unknown Verified 04/10/24 11:59 Antibiotics) allergy reaction aspirin AdvReac Intermediate Other Verified 04/10/24 11:59 Exam Data for Last 24 hours Vital signs and Labs for Last 24 Hours: Temp Pulse Resp BP Pulse Ox O2 Del Method 97.8 F 70 16 90/51 L 96 Room Air 04/14/24 15:30 04/14/24 15:30 04/14/24 15:55 04/14/24 15:55 04/14/24 15:30 04/14/24 15:30 Laboratory Results - last 24 hr 04/14/24 15:32: Sodium 134 L, Potassium 6.3 H*, Chloride 105, Carbon Dioxide 23, Anion Gap 12.3, BUN 23 H, Creatinine 1.70 H, Estimated Creat Clear 54, Estimated GFR 39 L, Est GFR ( Amer) 47 L, Glucose 184 H, Calcium 8.0 L, Magnesium 1.9, Total Bilirubin 1.6 H, AST 81 H, ALT 30, Alkaline Phosphatase 46, Total Creatine Kinase 100, CK-MB (CK-2) 1.3, CK-MB (CK-2) Rel Index 1.3, Troponin I 0.04 H 04/14/24 15:32: Troponin I 0.04 H, NT-Pro-B Natriuret Pep 3520 H, Total Protein 6.5, Albumin 3.5, Globulin 3.0, Albumin/Globulin Ratio 1.2 I & O for Last 24 hours: Intake & Output 04/11/24 04/12/24 04/13/24 04/14/24 23:59 23:59 23:59 23:59 Weight 99.79 kg Constitutional Constitutional: no acute distress, morbidly obese, chronically ill appearing and cooperative *Routine HEENT Exam Head: Present normocephalic and atraumatic Eye: Present EOMI and PERRL ENT: Present mucous membranes moist Comments: Diminished hearing *Routine Neck Exam Neck: Present trachea midline; Absent JVD or lymphadenopathy *Routine Respiratory Exam Respiratory: Present prolonged expiratory phase, diminished air movement and symmetric chest movement; Absent rhonchi, wheezes or crackles *Routine Cardiovascular Exam Cardiovascular: Present irregular rhythm *Routine Abdominal Exam Abdominal: Present soft and normoactive bowel sounds; Absent tenderness *Routine Rectal Exam Rectal:: deferred *Routine Genitalia Exam Genitalia:: deferred *Routine Extremities Exam Extremities: Present clubbing (Fingers); Absent cyanosis or edema *Routine Skin Exam Skin: Absent rash *Routine Neurological Exam Neurological: Present alert, oriented X3, moving all extremities, vision grossly intact and normal speech; Absent sensory deficit or motor deficit Routine Psychiatric Exam Psychiatric: Present normal affect and cooperative Assessment and Plan *Assessment and plan (1) Acute on chronic heart failure with preserved ejection fraction (HFpEF): Status: Acute Category: Medical Code(s): I50.33 - Acute on chronic diastolic (congestive) heart failure (2) Acute exacerbation of chronic obstructive pulmonary disease: Status: Acute Category: Medical Code(s): J44.1 - Chronic obstructive pulmonary disease with (acute) exacerbation (3) Atrial fibrillation with rapid ventricular response: Status: Acute Category: Medical Code(s): I48.91 - Unspecified atrial fibrillation (4) Myocardial injury: Status: Acute Category: Medical Code(s): I5A - Non-ischemic myocardial injury (non-traumatic) (5) CAD (coronary artery disease): Status: Acute Qualifiers: Associated angina: with other forms of angina Coronary Disease- Associated Artery/Lesion type: bypass graft [place] vs. transplanted heart: [place] heart Qualified Code(s): I25.708 - Atherosclerosis of coronary artery bypass graft(s), unspecified, with other forms of angina pectoris Category: Medical Code(s): I25.10 - Atherosclerotic heart disease of [place] coronary artery without angina pectoris (6) Sleep apnea: Status: Chronic Category: Medical Code(s): G47.30 - Sleep apnea, unspecified (7) CKD stage 3a, GFR 45-59 ml/min: Status: Acute Category: Medical Code(s): N18.31 - Chronic kidney disease, stage 3a (8) Diabetes mellitus: Status: Chronic Qualifiers: Diabetes mellitus complication status: with other specified complication Diabetes mellitus type: type 1 Qualified Code(s): E10.69 - Type 1 diabetes mellitus with other specified complication Category: Medical Code(s): E11.9 - Type 2 diabetes mellitus without complications (9) Iron deficiency anemia: Status: Acute Category: Medical Code(s): D50.9 - Iron deficiency anemia, unspecified (10) Morbid obesity with BMI of 40.0-44.9, adult: Status: Acute Category: Medical Code(s): E66.01 - Morbid (severe) obesity due to excess calories; Z68.41 - Body mass index [BMI] 40.0-44.9, adult Plan This is an 84-year-old male with morbid obesity, coronary artery disease, HFpEF and COPD who presents with shortness of air worse over the past 1-1/2 weeks. Also found to be hypotensive. Discussed case with ER, requests admission for further treatment and cardiology eval. Medicine agreed to admit. Currently requiring 2 L nasal cannula oxygen. Afebrile. Not requiring pressors at this time. Perfusing well, alert and oriented. Cardiology consulted to see the patient. Problems addressed as follows: Myocardial injury type II A-fib, rate controlled Coronary artery disease Acute on chronic HFpEF [id number]. Rate controlled. Lipitor 40 mg nightly, Bumex 1 mg IV daily. Appears euvolemic at this time. Continue spironolactone 25 mg daily, continue carvedilol 3.125 mg twice daily. Holding irbesartan in the setting of hypotension. Reevaluate administration in the morning. Irbesartan 75 mg daily holding anticoagulation due to anticipated cath Tuesday Troponin 0.04, down from last visit 2 weeks ago with peak at 0.35, Repeat troponin level ordered for the morning Cardiology consultation Echo from 04/03/24 with heart failure with reduced ejection fraction of 30%. Grade 2 diastolic dysfunction. 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 Low concern for pneumonia. Holding on antibiotics. 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 Currently on 2 L. Baseline 3 to 4 L. DuoNebs as needed every 6 hours. White count normal at 10.9 -Reports not using inhalers or nebulizers at home even though he is short of breath. Chronic kidney disease stage IIIa Baseline 1.5-2.0. Creatinine 1.7, BUN 23. monitor daily -CBC, CMP, magnesium ordered for the morning. Iron deficiency anemia Hemoglobin 10.6. TIBC 456 iron saturation 7.6%. Iron level 35. Received for last admission. Consider repeat dosing this admission. Diabetes, uncontrolled Initiate on 20 units of glargine nightly. High intensity sliding scale. Close monitoring given his poorly controlled status and high glucose previous admissions. Controlled at 118 on admission. Last A1c 10.42 weeks ago. BPH/urinary retention: Continue tamsulosin 0.4 mg HS and finasteride 5 mg nightly Full code Diabetic diet holding anticoagulation
[2024-04-14 16:48] LABS: Albumin Level 3.5 g/dl (3.5-5.0); Chloride 103 mmol/L (98-107); Sodium 137 mmol/L (136-145)
[2024-04-14 16:49] LABS: Potassium 4.5 mmoL/L (3.5-5.1)
[2024-04-14 16:51] LABS: Alanine Aminotransferase 24 U/L (12-78); Anion Gap 8.5 mEq/L (5-15); Aspartate Amino Transferase 35 U/L (17-59); Blood Urea Nitrogen 24 mg/dl (9-20); Carbon Dioxide 30 mmol/L (22.0-30.0); Creatinine Clearance Estimated 42 mL/min (50-200); Estimated Glomerular Filt Rate 34 ml/min (>60); GFR (African American) 41 ML/MIN (>60)
[2024-04-14 16:52] LABS: Albumin/Globulin Ratio 1.2 (1.1-1.8); Alkaline Phosphatase 91 U/L (38-126); Bilirubin,Total 0.6 mg/dl (0.2-1.3); Calcium 8.4 mg/dl (8.4-10.2); Globulin 2.9 g/dL (1.3-3.2); Glucose 118 mg/dl (74-100); Total Protein,Serum 6.4 g/dl (6.3-8.2)
[2024-04-14 16:56] LABS: Lactic Acid 1.5 mmol/L (0.7-2.1)
[2024-04-14 17:15] LABS: Basophils # 0.1 K/mm3 (0-0.2); Basophils % 1.2 % (0.1-2.0); Eosinophils % 0.3 % (0.1-12.0); Hematocrit 36.3 % (42.0-52.0); Hemoglobin 10.6 g/dL (14.1-18.0); Lymphocytes % 18.3 % (10-50); Mean Corpuscular HGB Conc 29.2 g/dL (31.8-35.4); Mean Corpuscular Hemoglobin 26.2 pg (27.0-31.2); Mean Corpuscular Volume 89.5 fl (80-94); Mean Platelet Volume 7.9 fl (7.4-10.4); Monocytes # 0.6 K/mm3 (0.1-1.0); Monocytes % 10.4 % (1.7-9.3); Neutrophils # 3.9 K/mm3 (1.8-7.8); Neutrophils % 69.7 % (37.0-80.0); Platelet Count 259 K/mm3 (142-424); Red Blood Count 4.06 M/mm3 (4.60-6.20); Red Cell Distribution Width 18.7 % (11.5-17.5); White Blood Count 5.6 K/mm3 (4.8-10.8)
--- NOTE | 2024-04-14 17:57 | PC.NURSE ---
Report called to Edilma IBARRA
[2024-04-14 20:07] LABS: Troponin I 0.02 ng/ml (0.00-0.034)
[2024-04-14] MEDS: ATORVASTATIN 40MG TABLET 80 MG PO (20:47)
[2024-04-14] MEDS: GABAPENTIN 300MG CAPSULE 300 MG PO (20:48)
[2024-04-14] MEDS: CARVEDILOL 3.125MG TABLET 3.125 MG PO (20:48)
--- NOTE | 2024-04-14 21:12 | PC.NURSE ---
Claude Parrish APRN aware of patient refusing insulin pen.
[2024-04-14 22:44] LABS: Troponin I 0.03 ng/ml (0.00-0.034)
[2024-04-15] VITALS (13 sets, daily range): BP systolic 118–161; BP diastolic 46–77; PULSE 50–90; RESP 18–21; TEMP 36.6–37.4; O2SAT 89–99; BMI 34.5
[2024-04-15] MEDS: GUAIFENESIN/DEXTROMETHORPHAN 200MG/20MG 10ML UDC 10 ML PO (00:03)
[2024-04-15] MEDS: IPRATROPIUM/ALBUTEROL 3 ML NEB IH ×6 (00:19→22:05)
--- NOTE | 2024-04-15 07:46 | PC.NURSE ---
patient sitting on bedside. no needs voiced at this time.
[2024-04-15 07:54] LABS: Basophils % 0.9 % (0.1-2.0); Eosinophils # 0.1 K/mm3 (0.0-0.4); Eosinophils % 1.5 % (0.1-12.0); Hematocrit 35.7 % (42.0-52.0); Hemoglobin 10.8 g/dL (14.1-18.0); Lymphocytes # 1.2 K/mm3 (0.7-4.5); Lymphocytes % 22.9 % (10-50); Mean Corpuscular HGB Conc 30.2 g/dL (31.8-35.4); Mean Corpuscular Hemoglobin 26.9 pg (27.0-31.2); Mean Corpuscular Volume 89.2 fl (80-94); Mean Platelet Volume 7.9 fl (7.4-10.4); Monocytes # 0.4 K/mm3 (0.1-1.0); Monocytes % 8.5 % (1.7-9.3); Neutrophils # 3.3 K/mm3 (1.8-7.8); Neutrophils % 66.3 % (37.0-80.0); Platelet Count 228 K/mm3 (142-424); Red Cell Distribution Width 18.6 % (11.5-17.5)
[2024-04-15 08:52] LABS: Albumin Level 3.1 g/dl (3.5-5.0)
[2024-04-15 08:54] LABS: Alanine Aminotransferase 21 U/L (12-78); Alkaline Phosphatase 74 U/L (38-126); Aspartate Amino Transferase 35 U/L (17-59); Bilirubin,Total 0.4 mg/dl (0.2-1.3); Blood Urea Nitrogen 27 mg/dl (9-20); Calcium 8.1 mg/dl (8.4-10.2); Chloride 106 mmol/L (98-107); Creatinine Clearance Estimated 42 mL/min (50-200); Estimated Glomerular Filt Rate 34 ml/min (>60); GFR (African American) 41 ML/MIN (>60); Glucose 101 mg/dl (74-100); Magnesium 2.2 mg/dl (1.6-2.3); Sodium 137 mmol/L (136-145); Total Protein,Serum 5.9 g/dl (6.3-8.2)
[2024-04-15 08:55] LABS: Albumin/Globulin Ratio 1.1 (1.1-1.8); Globulin 2.8 g/dL (1.3-3.2); Potassium 3.9 mmoL/L (3.5-5.1)
[2024-04-15] MEDS: BUMETANIDE 1MG/4ML VIAL 1 MG IV (09:24)
[2024-04-15] MEDS: GABAPENTIN 300MG CAPSULE 300 MG PO ×2 (09:24→21:35)
[2024-04-15] MEDS: EMPAGLIFLOZIN 10MG TABLET 10 MG PO (09:24)
[2024-04-15] MEDS: CARVEDILOL 3.125MG TABLET 3.125 MG PO ×2 (09:24→21:35)
[2024-04-15] MEDS: TAMSULOSIN 0.4MG CAPSULE 0.4 MG PO (09:25)
[2024-04-15] MEDS: IRBESARTAN 75MG TABLET 37.5 MG PO (09:25)
[2024-04-15] MEDS: PANTOPRAZOLE 40MG TABLET 40 MG PO (09:25)
[2024-04-15] MEDS: SPIRONOLACTONE 25MG TABLET 25 MG PO (09:25)
[2024-04-15 10:11] LABS: Anion Gap 4.9 mEq/L (5-15); Carbon Dioxide 30 mmol/L (22.0-30.0)
[2024-04-15] MEDS: humaLOG 100 UNITS/ML 10ML VIAL (SSI) SQ ×3 (10:57→21:52)
[2024-04-15 12:19] LABS: POC Glucose,Bedside 246 (70-110)
[2024-04-15 12:19] LABS: POC Glucose,Bedside 109 (70-110)
[2024-04-15] MEDS: INSULIN GLARGINE 100 UNITS/ML 3ML FLEXPEN 40 UNIT SQ (14:27)
[2024-04-15 16:51] LABS: POC Glucose,Bedside 366 (70-110)
--- NOTE | 2024-04-15 18:05 | P.PN_ITS ---
Subjective *Date: 04/15/24 *Time: 18:05 Interval history: Patient did well overnight. States he is feeling little bit better than this morning. Blood pressure improved. On 2 L nasal cannula. No nausea or vomiting. No dizziness. Blood sugar was low so insulin was held at bedtime. Increased this morning. Medical Exam Vital signs and Labs for Last 24 Hours: Vital Signs Temp Pulse Pulse Resp BP BP Pulse Ox 04/15/24 17:00 04/15/24 16:00 04/15/24 16:00 99.4 F 61 18 161/77 H 89 L 04/15/24 15:00 04/15/24 14:38 67 04/15/24 14:38 67 04/15/24 14:38 98 04/15/24 13:00 04/15/24 11:57 98.5 F 74 18 139/47 L 95 04/15/24 11:00 04/15/24 10:55 62 04/15/24 10:55 64 04/15/24 10:55 92 L 04/15/24 09:00 04/15/24 08:00 65 04/15/24 08:00 99 04/15/24 08:00 99.2 F 65 20 120/46 L 97 04/15/24 07:40 64 04/15/24 07:40 64 04/15/24 07:40 96 04/15/24 06:47 04/15/24 04:36 04/15/24 04:00 50 L 04/15/24 04:00 98.1 F 62 21 120/47 L 94 L 04/15/24 03:00 04/15/24 00:55 04/15/24 00:21 04/15/24 00:20 55 L 04/15/24 00:00 98.1 F 54 L 18 140/60 95 04/15/24 00:00 50 L 04/14/24 23:00 04/14/24 21:00 04/14/24 20:00 50 L 04/14/24 20:00 04/14/24 19:48 98.1 F 52 L 15 129/50 L 97 04/14/24 18:59 98.2 F 57 L 20 135/42 L 04/14/24 18:53 04/14/24 18:48 04/14/24 18:42 98.2 F 60 21 135/42 L 98 O2 Del Method O2 Flow Rate FiO2 04/15/24 17:00 Nasal Cannula 2 04/15/24 16:00 Nasal Cannula 2 04/15/24 16:00 Room Air 04/15/24 15:00 Room Air 04/15/24 14:38 04/15/24 14:38 04/15/24 14:38 Room Air 04/15/24 13:00 Room Air 04/15/24 11:57 Nasal Cannula 2 04/15/24 11:00 Room Air 04/15/24 10:55 04/15/24 10:55 04/15/24 10:55 Room Air 04/15/24 09:00 Nasal Cannula 2 04/15/24 08:00 04/15/24 08:00 Nasal Cannula 2 04/15/24 08:00 Room Air 04/15/24 07:40 04/15/24 07:40 04/15/24 07:40 Nasal Cannula 2 04/15/24 06:47 Nasal Cannula 2 04/15/24 04:36 Nasal Cannula 2 04/15/24 04:00 04/15/24 04:00 Nasal Cannula 2 04/15/24 03:00 Venturi Mask 04/15/24 00:55 Nasal Cannula 2 04/15/24 00:21 Nasal Cannula 2 04/15/24 00:20 04/15/24 00:00 Nasal Cannula 2 04/15/24 00:00 04/14/24 23:00 Nasal Cannula 2 04/14/24 21:00 Nasal Cannula 2 04/14/24 20:00 04/14/24 20:00 Nasal Cannula 2 04/14/24 19:48 Nasal Cannula 2 04/14/24 18:59 Nasal Cannula 2 04/14/24 18:53 Nasal Cannula 2 04/14/24 18:48 Nasal Cannula 2 04/14/24 18:42 Nasal Cannula 2 Intake and Output 04/15/24 04/15/24 04/15/24 07:59 15:59 23:59 Intake Total 300 / 300 Output Total 900 / 1750 500 / 1750 350 / 1750 Balance -600 / -1450 -500 / -1450 -350 / -1450 Intake: Intake, Oral Amount 300 / 300 Output: Output, Urine Amount 900 / 1750 500 / 1750 350 / 1750 Other: Number of Unmeasured Voids 0 0 Number of Bowel Movements 1 Weight 99.79 kg Patient Weight 04/15/24 23:59 Weight 99.79 kg Laboratory Results - last 24 hr 04/14/24 19:30: Troponin I 0.02 04/14/24 22:15: Troponin I 0.03 04/15/24 05:08: POC Glucose 109 04/15/24 06:46: WBC 5.0, RBC 4.00 L, Hgb 10.8 L, Hct 35.7 L, MCV 89.2, MCH 26.9 L, MCHC 30.2 L, RDW 18.6 H, Plt Count 228, MPV 7.9, Neut % (Auto) 66.3, Lymph % (Auto) 22.9, [place] % (Auto) 8.5, Eos % (Auto) 1.5, Baso % (Auto) 0.9, Neut # (Auto) 3.3, Lymph # (Auto) 1.2, [place] # (Auto) 0.4, Eos # (Auto) 0.1, Baso # (Auto) 0.0, Sodium 137, Potassium 3.9, Chloride 106, Carbon Dioxide 30, Anion Gap 4.9 L, BUN 27 H, Creatinine 1.90 H, Estimated Creat Clear 42, Estimated GFR 34 L, Est GFR ( Amer) 41 L, Glucose 101 H, Calcium 8.1 L, Magnesium 2.2 D, Total Bilirubin 0.4, AST 35, ALT 21, Alkaline Phosphatase 74, Total Protein 5.9 L, Albumin 3.1 L D, Globulin 2.8, Albumin/Globulin Ratio 1.1 04/15/24 10:38: POC Glucose 246 H 04/15/24 16:37: POC Glucose 366 H* I & O for Labs for Last 24 Hours: Intake & Output 04/12/24 04/13/24 04/14/24 04/15/24 23:59 23:59 23:59 23:59 Intake Total 300 / 300 Output Total 350 / 350 1750 / 1750 Balance -350 / -50 -1450 / -1450 Weight 99.79 kg 99.79 kg Constitutional: Present no acute distress, obese, chronically ill appearing and cooperative Head: Present atraumatic and normocephalic ENT: Present normal exam Neck: Present normal inspection Respiratory: Present prolonged expiratory phase and diminished air movement; Absent respiratory distress, rhonchi, stridor, wheezes or crackles Cardiac: Present Reg Rate and Rhythm GI: Present soft and normal bowel sounds; Absent distention or tenderness Extremities: Present normal inspection and full ROM; Absent edema Skin: Present intact; Absent erythema Neuro: Present Grossly Intact, alert, awake, oriented x 3 and moves all extremities Comment:: Poor insight to condition and treatment plan; neurovascularly intact in his legs grossly Assessment and Plan *Assessment and plan (1) Acute on chronic heart failure with preserved ejection fraction (HFpEF): Status: Acute Category: Medical Code(s): I50.33 - Acute on chronic diastolic (congestive) heart failure (2) Acute exacerbation of chronic obstructive pulmonary disease: Status: Acute Category: Medical Code(s): J44.1 - Chronic obstructive pulmonary disease with (acute) exacerbation (3) Atrial fibrillation with rapid ventricular response: Status: Acute Category: Medical Code(s): I48.91 - Unspecified atrial fibrillation (4) Myocardial injury: Status: Acute Category: Medical Code(s): I5A - Non-ischemic myocardial injury (non-traumatic) (5) CAD (coronary artery disease): Status: Acute Qualifiers: Coronary Disease-Associated Artery/Lesion type: bypass graft [place] vs. transplanted heart: [place] heart Associated angina: with other forms of angina Qualified Code(s): I25.708 - Atherosclerosis of coronary artery bypass graft(s), unspecified, with other forms of angina pectoris Category: Medical Code(s): I25.10 - Atherosclerotic heart disease of [place] coronary artery without angina pectoris (6) Sleep apnea: Status: Chronic Category: Medical Code(s): G47.30 - Sleep apnea, unspecified (7) CKD stage 3a, GFR 45-59 ml/min: Status: Acute Category: Medical Code(s): N18.31 - Chronic kidney disease, stage 3a (8) Diabetes mellitus: Status: Chronic Qualifiers: Diabetes mellitus type: type 1 Diabetes mellitus complication status: with other specified complication Qualified Code(s): E10.69 - Type 1 diabetes mellitus with other specified complication Category: Medical Code(s): E11.9 - Type 2 diabetes mellitus without complications (9) Iron deficiency anemia: Status: Acute Category: Medical Code(s): D50.9 - Iron deficiency anemia, unspecified (10) Morbid obesity with BMI of 40.0-44.9, adult: Status: Acute Category: Medical Code(s): E66.01 - Morbid (severe) obesity due to excess calories; Z68.41 - Body mass index [BMI] 40.0-44.9, adult Plan This is an 84-year-old male with morbid obesity, coronary artery disease, HFpEF and COPD who presents with shortness of air worse over the past 1-1/2 weeks. Also found to be hypotensive. Discussed case with ER, requests admission for further treatment and cardiology eval. Medicine agreed to admit. Currently requiring 2 L nasal cannula oxygen. Afebrile. Blood pressure improving. No chest pain. Cardiology to evaluate in the morning for heart cath to assess for possible reversible occlusions. Problems addressed as follows: Myocardial injury type II A-fib, rate controlled Coronary artery disease Acute on chronic HFpEF [id number]. Rate controlled. Lipitor 40 mg nightly, Bumex 1 mg IV daily. Appears euvolemic at this time. Continue spironolactone 25 mg daily, continue carvedilol 3.125 mg twice daily. Resume irbesartan at 37.5 mg daily given improved blood in line with goal- directed therapy. Reevaluate administration in the morning. holding anticoagulation due to anticipated cath Tuesday Troponin normalized to 0.02 Cardiology consultation Echo from 04/03/24 with heart failure with reduced ejection fraction of 30%. Grade 2 diastolic dysfunction. 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 Currently on 2 L. Baseline 3 to 4 L. DuoNebs scheduled every 4 hours. White count normal at 5 -Reports not using inhalers or nebulizers at home even though he is short of breath. Chronic kidney disease stage IIIa Baseline 1.5-2.0. Creatinine 1.9, BUN 27. monitor daily -CBC, CMP, magnesium ordered for the morning. Iron deficiency anemia Hemoglobin 11. TIBC 456 iron saturation 7.6%. Iron level 35. Received for las t admission. Consider repeat dosing this admission. Diabetes, uncontrolled Initiate on 40 units glargine daily. Continue high intensity sliding scale. Morning glucose 101. Last A1c 10.4 2 weeks ago. BPH/urinary retention: Continue tamsulosin 0.4 mg HS and finasteride 5 mg nightly Full code Diabetic diet holding anticoagulation
[2024-04-15] MEDS: ATORVASTATIN 40MG TABLET 80 MG PO (21:36)
[2024-04-15] MEDS: FINASTERIDE 5MG TABLET 5 MG PO (21:36)
[2024-04-15 21:52] LABS: POC Glucose,Bedside 342 (70-110)
[2024-04-16] VITALS (18 sets, daily range): BP systolic 114–169; BP diastolic 47–88; PULSE 49–93; RESP 16–20; TEMP 36.6–37.3; O2SAT 92–100; BMI 34.5
[2024-04-16] MEDS: humaLOG 100 UNITS/ML 10ML VIAL (SSI) SQ ×2 (06:25→16:31)
[2024-04-16 06:26] LABS: POC Glucose,Bedside 209 (70-110)
--- NOTE | 2024-04-16 06:30 | PC.NURSE ---
Patient is alert and oriented x4 with occasional short-term memory loss. Patient was also noticed to be slightly hard of hearing. Patient's visited him earlier this shift; this appeared to be delightful for the patient. Patient was observed to have eyes closed, respirations even and unlabored, and no apparent stress throughout the majority of the night. Patient has remained on 2 L of oxygen via nasal cannula; oxygen saturations have maintained in the lower 90s this shift. Patient's lung sounds were diminished upon auscultation; no wheezing was heard upon assessment. Patient's bowel sounds were active. Life vest is in place. Vital signs have remained at patient baseline this shift. Patient has reported satisfaction with scheduled duonebs and stated that they do help. Patient has been using the urinal to void and gets up with assistance and a walker to use the bathroom. Patient's fingerstick glucose reading at 21:00 was 342; 12 units of insulin was given per MAR. At 06:00, fingerstick glucose was 209; 7 units of insulin was given. Patient also received his scheduled PO medications per MAR this shift. Patient does not have any further complaints at this time. He is currently resting supine in bed. Bed alarm on. Call light within reach.
[2024-04-16] MEDS: IPRATROPIUM/ALBUTEROL 3 ML NEB IH ×3 (06:48→13:28)
[2024-04-16 07:18] LABS: Albumin Level 3.3 g/dl (3.5-5.0); Chloride 106 mmol/L (98-107); Potassium 4.1 mmoL/L (3.5-5.1); Sodium 138 mmol/L (136-145)
[2024-04-16 07:21] LABS: Alanine Aminotransferase 22 U/L (12-78); Albumin/Globulin Ratio 1.2 (1.1-1.8); Alkaline Phosphatase 86 U/L (38-126); Anion Gap 7.1 mEq/L (5-15); Aspartate Amino Transferase 36 U/L (17-59); Bilirubin,Total 0.5 mg/dl (0.2-1.3); Blood Urea Nitrogen 29 mg/dl (9-20); Carbon Dioxide 29 mmol/L (22.0-30.0); Creatinine Clearance Estimated 45 mL/min (50-200); Estimated Glomerular Filt Rate 36 ml/min (>60); GFR (African American) 44 ML/MIN (>60); Globulin 2.7 g/dL (1.3-3.2); Glucose 193 mg/dl (74-100)
[2024-04-16 07:22] LABS: Magnesium 2.2 mg/dl (1.6-2.3)
--- NOTE | 2024-04-16 07:39 | HMH.PTEV ---
Physical Therapy Evaluation Rehab PT IP Evaluation Start: 04/15/24 09:17 Freq: ONCE Status: Active Protocol: Document 04/16/24 07:24 SHAHID (Rec: 04/16/24 07:29 SHAHID [id number]) Subjective/History History History Per H&P: Mr. Pemberton is an 84- year-old male with complex past medical history including worsening heart failure with reduced ejection fraction, chronic hypoxemic respiratory failure due to COPD on 3 to 4 L oxygen at home, obesity, uncontrolled diabetes, CKD, hypertension, PA H, difficulty with medication compliance, neuropathy. He presented to the ER with report of dizziness, weakness, shortness of breath. States he has been feeling more weak since last admission. Home health sent him to the ER because of dizziness and hypotension. He denies chest pain, nausea, vomiting. Has previously been admitted twice in the past month for pneumonia, A-fib, heart failure. Prior to coming to the ER, had a near syncopal event at the [facility]. On evaluation in the ER, patient 's blood pressure soft with MAP 60-65, systolic blood pressure 90. Alert and oriented and perfusing well. Labs obtained showing kidney function at or better than his baseline. Tolerating 2 to 3 L nasal cannula oxygen. Cardiology was consulted and recommended admission for evaluation given more symptomatology with his heart failure. Medicine consulted for admission and further management. Subjective Subjective I'm here for dehydration Pt reports she lives in a home with his and son. Son helps with mobility tasks as needed. 3 steps in home but pt usually avoids them. Pt used a RW for all ambulation tasks IND. New diagnosis of cancer in past 12 No months? Rehab PT IP Eval Objective Appearance Patient Behavior Appropriate,Cooperative Patient Orientation Person,Situation Difficulty following instructions none Speech Pattern Clear Ambulation Patient Able to Ambulate Yes Ambulation Observation IP General Gait Pattern Observation Wide Based Gait Ambulation Distance (feet) 30 Ambulation Assistive Device Rolling Walker Ambulation Ability Supervision/Stand by Balance Ability to Arise Able, uses arms to help Sitting Balance Steady, safe Standing Balance Steady, wide stance Transfers Bed Transfer Ability Supervision/Stand by Sit to Stand Bed Transfer Ability Supervision/Stand by Rehab PT IP prob,goals,plan Problems Date of Evaluation: 04/16/24 PT IP Problems Other Other Pt Problem Impaired endurance Rehab Potential Rehab Potential Innapropriate for Skilled Therapy Discharge Plan PT Discharge Plan Pt safe to d/c home when deemed medically necessary d/t current level of mobility, home set-up, and family support. Pt not appropriate for skilled acute care PT at this time d/t pt?s mobility being at baseline. PT recommending home health PT services to address endurance deficits. Eval Complexity Eval Charge Codes 90784 - Moderate Complexity PHYSICIAN CERTIFICATION: I certify the specified therapy services for Jarrett Pemberton are required, authorized, and reviewed every 30 days.
[2024-04-16 08:05] LABS: Basophils % 0.6 % (0.1-2.0); Eosinophils # 0.1 K/mm3 (0.0-0.4); Eosinophils % 1.4 % (0.1-12.0); Hematocrit 34.9 % (42.0-52.0); Hemoglobin 10.5 g/dL (14.1-18.0); Lymphocytes # 1.2 K/mm3 (0.7-4.5); Lymphocytes % 25.4 % (10-50); Mean Corpuscular HGB Conc 30.2 g/dL (31.8-35.4); Mean Corpuscular Hemoglobin 26.8 pg (27.0-31.2); Mean Corpuscular Volume 88.8 fl (80-94); Mean Platelet Volume 8.4 fl (7.4-10.4); Monocytes # 0.4 K/mm3 (0.1-1.0); Monocytes % 8.4 % (1.7-9.3); Neutrophils # 2.9 K/mm3 (1.8-7.8); Neutrophils % 64.2 % (37.0-80.0); Platelet Count 229 K/mm3 (142-424); Red Blood Count 3.93 M/mm3 (4.60-6.20); Red Cell Distribution Width 18.9 % (11.5-17.5); White Blood Count 4.5 K/mm3 (4.8-10.8)
--- NOTE | 2024-04-16 09:29 | HMH.OTEV ---
OT Inpatient Evaluation Rehab OT IP Evaluation Start: 04/15/24 09:17 Freq: ONCE Status: Active Protocol: Document 04/16/24 09:23 KENYONMASOUD (Rec: 04/16/24 09:28 EDWIN [id number]) Rehab OT IP Assessment Subjective History Mr. Pemberton is an 84-year-old male with complex past medical history including worsening heart failure with reduced ejection fraction, chronic hypoxemic respiratory failure due to COPD on 3 to 4 L oxygen at home, obesity, uncontrolled diabetes, CKD, hypertension, PA H, difficulty with medication compliance, neuropathy. He presented to the ER with report of dizziness, weakness, shortness of breath. States he has been feeling more weak since last admission. Home health sent him to the ER because of dizziness and hypotension. He denies chest pain, nausea, vomiting. Has previously been admitted twice in the past month for pneumonia, A-fib, heart failure. Prior to coming to the ER, had a near syncopal event at the [facility]. On evaluation in the ER, patient 's blood pressure soft with MAP 60-65, systolic blood pressure 90. Alert and oriented and perfusing well. Labs obtained showing kidney function at or better than his baseline. Tolerating 2 to 3 L nasal cannula oxygen. Cardiology was consulted and recommended admission for evaluation given more symptomatology with his heart failure. Medicine consulted for admission and further management. On evaluation, patient reports to me that he has just been feeling more weak and fatigued . Has not been using his inhalers. Is comfortable on room air up to 2 L at rest but necessitates oxygen when he exerts himself. States he can barely walk across the room without getting short of breath and this is worse in the past 1 to 2 weeks. Of note, on exam he looks the same if not somewhat subjectively better than my last exam on him 2 weeks ago. Patient lives with and son in 1 story home. Patient uses RW for ambulation. Son will assist with ADLs, fx'l mobility, housekeeping tasks and transportation as needed. Son does not work and is home as a pipe processor. Subjective I can get up. Analysis Patient's safety awareness to complete bed mobility, transfer, ADL and fx 'l mobility during initial evaluation. Patient completed all tasks independently. Patient stated to be on 4L of 02 at home. 02 >90%. Objective Patient Orientation Person,Place,Name,Age,Birthday ,Year Right Upper Extremity Gross ROM WFL Left Upper Extremity Gross ROM WFL Bed Mobility bed mobility - supine/sit Assist Level Independent Transfer Training Sit/Stand/Pivot Transfer Assist Level Independent Chair Transfer Ability Independent Chair Transfer Technique Sit to/from Ambulatory Chair Transfer Assistive Devices Rolling Walker Rehab OT IP prob,goals,plan Problems Date of Evaluation: 04/16/24 Rehab Potential Rehab Potential Innapropriate for Skilled Therapy Discharge Plan OT Discharge Plan Recommend patient to return home after medical d/c. Patient appears to be at baseline with ADLs and fx'l mobility. Son will assist patient as needed at home. Continue to provide transportation as needed. Eval Complexity Eval Charge Codes 53530 - Low Complexity PHYSICIAN CERTIFICATION: I certify the specified therapy services for Jarrett Riversclem Pemberton are required, authorized, and reviewed every 30 days.
[2024-04-16] MEDS: TAMSULOSIN 0.4MG CAPSULE 0.4 MG PO (09:32)
[2024-04-16] MEDS: CARVEDILOL 3.125MG TABLET 3.125 MG PO (09:33)
[2024-04-16] MEDS: SPIRONOLACTONE 25MG TABLET 25 MG PO (09:33)
[2024-04-16] MEDS: EMPAGLIFLOZIN 10MG TABLET 10 MG PO (09:33)
[2024-04-16] MEDS: PANTOPRAZOLE 40MG TABLET 40 MG PO (09:33)
[2024-04-16] MEDS: IRBESARTAN 75MG TABLET 37.5 MG PO (09:33)
[2024-04-16] MEDS: GABAPENTIN 300MG CAPSULE 300 MG PO (09:33)
[2024-04-16] MEDS: CLOPIDOGREL 75MG TAB 75 MG PO (09:34)
[2024-04-16] MEDS: INSULIN GLARGINE 100 UNITS/ML 3ML FLEXPEN 40 UNIT SQ (09:34)
[2024-04-16] MEDS: BUMETANIDE 1MG/4ML VIAL 1 MG IV (09:34)
--- NOTE | 2024-04-16 11:03 | IR_ITS ---
APPROVED REPORT Patient Location: Inpatient Mud Car Worker: SHERI Puentes RT (R) PROCEDURES Left heart catheterization Left ventriculogram Selective coronary angiogram Left internal mammary angiography Selective engagement of saphenous vein graft to circumflex artery Selective engagement of saphenous vein graft to the posterior sending artery INDICATION New onset cardiomyopathy, Coronary disease, History of non-ST elevation myocardial infarction Informed consent was obtained prior to the procedure. COMPLICATIONS None Estimated Blood Loss: Less than 10 mls TECHNIQUE One percent lidocaine used to anesthetize the right groin. The right femoral artery was accessed via the Seldinger technique and a 5 [place] sheath was placed in the right femoral artery. A JL 4, JR4 catheter were used to perform left heart catheterization, left ventriculogram selective coronary angiography as well as selective engagement of the 2 vein grafts and the left internal mammary artery. At the end of the procedure the patient was transferred to the postop holding area in stable condition for sheath removal. ANGIOGRAPHIC RESULTS The left main artery Normal The left anterior descending artery Has proximal 80% stenosis followed by mid vessel 70% stenosis with competitive flow from the left internal mammary artery The circumflex artery Nondominant and occluded at mid vessel The right coronary artery Is dominant and has proximal 40% stenosis with a mid vessel stent which has 30% concentric in-stent restenosis. Competitive flow is identified from the posterior descending artery. A large posterior lateral ventricular branch has diffuse 20 and 30% stenosis The GRIFFIN ventriculogram reveals Reduced 30 to 35% The left ventricular end-diastolic pressure 20 mmHg CRESPO to LAD patent Saphenous to circumflex artery patent Saphenous to posterior descending artery off the right coronary is patent IMPRESSION Patent coronary arteries as described above Reduced ejection fraction Borderline elevated LVEDP PLAN 1. Continue with standard therapy for systolic heart failure 2. Continue with standard therapy for ischemic heart disease 3. Evaluation for AICD after GDMT for appropriate length of time Electronically signed by : Jaquan Aly MD 04/16/2024 12:19:06
[2024-04-16] MEDS: HEPARIN 1,000 UNITS/500ML NS (CATH LAB) 3000 UNIT IV (11:34)
[2024-04-16] MEDS: diphenhydrAMINE 50MG/ML VIAL 50 MG IV (11:34)
[2024-04-16] MEDS: 0.9 % SODIUM CHLORIDE 500 ML 25 ML IV (11:34)
[2024-04-16] MEDS: LIDOCAINE 1% 10ML MDV 20 ML IJ (11:34)
[2024-04-16] MEDS: MIDAZOLAM HCL 1MG/1ML 5ML VIAL 1 MG IV (11:35)
[2024-04-16] MEDS: FENTANYL 100MCG/2ML VIAL 50 MCG IV (11:35)
[2024-04-16] MEDS: IOPAMIDOL-370 (76%);100ML BOTTLE 40 ML IV (12:48)
--- NOTE | 2024-04-16 13:10 | SW/DCPLANNER ---
Addendum entered by Haydee Agarwal 04/16/24 16:06: I have updated [facility]/ [facility] that patient will return home this afternoon. Updated information has been faxed. Original Note: This patient is currently established w/ [facility]. I will update [facility]ome lewis/ [facility] once patient is medically stable for discharge. Discharge date is unknown at this time.
--- NOTE | 2024-04-16 14:16 | P.CONCA_ITS ---
History of Present Illness History of Present Illness Consult date: 04/16/24 Requesting physician: Crow Urena Chief complaint: soa History of present illness: This is an 84-year-old gentleman who presented to the emergency department with complaints of shortness of breath and a low blood pressure. He has a past medical history for HFrEF, chronic hypoxemic respiratory failure, COPD, diabetes, hypertension, hyperlipidemia, CKD and diabetes. The patient was recently admitted to the hospital with an exacerbation of HFrEF and atrial fibrillation. He was attempted to undergo left cardiac catheterization but radial access was not achieved. He was sent home and was going to be scheduled to have an outpatient heart cath with a groin access but has Temitope presented to the hospital due to worsening shortness of breath and a low blood pressure. His map was between 60 and 65 with a systolic pressure in the 90s. His renal function has improved and he denies any chest pain or pressure. He states that he is short of breath essentially all the time. It is worse with exertion and improves with rest. He states that since being home his shortness of breath had worsened and he just did not feel well especially when his blood pressure got low and decided to come back into the emergency department. He denied any fever, chills, nausea, vomiting, diarrhea. [facility] Disclaimer: The information contained in this section may have been updated after the patient was seen, as this information can be updated by other users. Medical History (Updated 04/16/24 @ 14:23 by Kylie Pinzon APRN) Atypical angina HLD (hyperlipidemia) HTN (hypertension) Morbid obesity with BMI of 40.0-44.9, adult CKD stage 3a, GFR 45-59 ml/min Iron deficiency anemia Multiple pulmonary nodules Chronic hypoxemic respiratory failure COPD (chronic obstructive pulmonary disease) Pulmonary emphysema Stopped smoking with greater than 30 pack year history Lung nodule Dyspnea on exertion Sleep apnea Diabetes mellitus Abnormal EKG JUAN FRANCISCO (cerebral atherosclerosis) Edema Pre-op evaluation Claudication Paroxysmal atrial fibrillation HHD (hypertensive heart disease) Surgical History History of prostate surgery History of heart artery stent Family History Other Anemia Coronary artery disease Diabetes Heart attack Hyperlipidemia Hypertension Stroke Social History Smoking Status: Unknown if ever smoked second hand exposure: No alcohol intake: never substance use type: denies use current occupational status: retired Travel in the last 8 weeks: None household members: spouse housing: house current occupational exposures/hazards: No caffeine: Yes Review of Systems Review of Systems Review of systems:: pertinent systems reviewed and negative unless documented below Constitutional Constitutional: Reports system reviewed and no additional complaints, except as documented, Reports fatigue and Reports lethargy Eyes Eyes: Reports system reviewed and no additional complaints, except as documented ENT Ears, Nose, Mouth, and Throat: Reports system reviewed and no additional complaints, except as documented *Cardiovascular Cardiovascular: Reports system reviewed and no additional complaints, except as documented, Denies chest pain, Reports dyspnea, Reports dyspnea on exertion, Denies leg edema and Reports orthopnea *Respiratory Respiratory: Reports system reviewed and no additional complaints, except as documented, Reports dyspnea and Reports dyspnea on exertion *Gastrointestinal Gastrointestinal: Reports system reviewed and no additional complaints, except as documented *Genitourinary Genitourinary: Reports system reviewed and no additional complaints, except as documented *Musculoskeletal Musculoskeletal: Reports system reviewed and no additional complaints, except as documented Integumentary/Breasts Skin/Breast: Reports system reviewed and no additional complaints, except as documented *Neurologic Neurologic: Reports system reviewed and no additional complaints, except as documented Psychiatric Psychiatric: Reports system reviewed and no additional complaints, except as documented Endocrine Endocrine: Reports system reviewed and no additional complaints, except as documented and Reports fatigue Hematologic/Lymphatic Hematologic/Lymphatic: Reports system reviewed and no additional complaints, except as documented Allergic/Immunologic Allergic/Immunologic: Reports system reviewed and no additional complaints, except as documented Exam Data for Last 24 hours Vital signs and Labs for Last 24 Hours: Temp Pulse Resp BP Pulse Ox O2 Del Method O2 Flow Rate 98 F 72 16 127/59 L 96 Nasal Cannula 2 04/16/24 13:00 04/16/24 13:30 04/16/24 13:15 04/16/24 13:15 04/16/24 13:15 04/16/24 13:15 04/16/24 13:15 FiO2 28 04/15/24 00:21 Laboratory Results - last 24 hr 04/15/24 16:37: POC Glucose 366 H* 04/15/24 21:39: POC Glucose 342 H* 04/16/24 06:17: POC Glucose 209 H 04/16/24 06:22: WBC 4.5 L, RBC 3.93 L, Hgb 10.5 L, Hct 34.9 L, MCV 88.8, MCH 26.8 L, MCHC 30.2 L, RDW 18.9 H, Plt Count 229, MPV 8.4, Neut % (Auto) 64.2, Lymph % (Auto) 25.4, [place] % (Auto) 8.4, Eos % (Auto) 1.4, Baso % (Auto) 0.6, Neut # (Auto) 2.9, Lymph # (Auto) 1.2, [place] # (Auto) 0.4, Eos # (Auto) 0.1, Baso # (Auto) 0.0, Sodium 138, Potassium 4.1, Chloride 106, Carbon Dioxide 29, Anion Gap 7.1, BUN 29 H, Creatinine 1.80 H, Estimated Creat Clear 45, Estimated GFR 36 L, Est GFR ( Amer) 44 L, Glucose 193 H D, Calcium 8.0 L, Magnesium 2.2, Total Bilirubin 0.5, AST 36, ALT 22, Alkaline Phosphatase 86, Total Protein 6.0 L, Albumin 3.3 L, Globulin 2.7, Albumin/Globulin Ratio 1.2 I & O for Last 24 hours: Intake & Output 04/13/24 04/14/24 04/15/24 04/16/24 23:59 23:59 23:59 23:59 Intake Total 600 / 940 820 / 820 Output Total 350 / 350 1975 / 2350 1125 / 1125 Balance -350 / -50 -1375 / -1410 -305 / -305 Weight 220 lb 219 lb 15.988 oz 219 lb 15.636 oz Constitutional Constitutional: no acute distress and obese *Routine HEENT Exam Head: Present normocephalic and atraumatic ENT: Present mucous membranes moist *Routine Neck Exam Neck: Present supple, full ROM and normal carotid upstroke; Absent JVD, carotid bruit or lymphadenopathy *Routine Respiratory Exam Respiratory: Present CTA bilaterally, normal respiratory effort, able to speak in complete sentences and symmetric chest movement *Routine Cardiovascular Exam Cardiovascular: Present RRR, Normal S1 and Normal S2; Absent murmur or gallop *Routine Abdominal Exam Abdominal: Present soft and normoactive bowel sounds; Absent tenderness, distended or organomegaly *Routine Extremities Exam Extremities: Present full ROM, pulses intact and normal capillary refill; Absent cyanosis, clubbing or edema *Routine Skin Exam Skin: Present intact and warm; Absent erythema *Routine Neurological Exam Neurological: Present alert, oriented X3 and CN II-XII intact; Absent sensory deficit or motor deficit Routine Psychiatric Exam Psychiatric: Present normal affect Meds Home Medications and Allergies Home Medications ?Medication ?Instructions ?Recorded ?Confirmed ?Type clopidogrel 75 mg tablet (Plavix) 75 mg PO DAILY #90 tabs 10/28/22 04/15/24 Rx insulin regular hum U-500 conc 500 120 unit (0.24 mL) SQ BIDWMEAL 11/05/22 04/15/24 Rx unit/mL(3 mL) subcut pen Diabetes 30 days #14.4 mL oxybutynin chloride 10 mg 10 mg PO DAILY 11/05/22 04/14/24 History tablet,extended release 24 hr gabapentin 300 mg capsule 300 mg PO BID Pain #60 caps 11/21/23 04/14/24 Rx tiotropium 2.5 mcg-olodaterol 2.5 2 puff inhalation DAILY Breathing 11/21/23 04/15/24 Rx mcg/actuation mist for inhalation problems #4 grams (Stiolto Respimat) tamsulosin 0.4 mg capsule 0.4 mg PO DAILY 11/22/23 04/15/24 History hydrocodone 5 mg-acetaminophen 325 1 tab PO DAILY #30 tabs 03/21/24 04/14/24 Rx mg tablet nystatin 100,000 unit/gram topical 1 applic topical TID #60 grams 03/22/24 04/14/24 Rx cream ferrous gluconate 324 mg (38 mg 324 mg PO DAILY 03/31/24 04/15/24 History iron) tablet pantoprazole 40 mg tablet,delayed 40 mg PO DAILY 03/31/24 04/14/24 History release rosuvastatin 40 mg tablet 40 mg PO DAILY 03/31/24 04/14/24 History torsemide 10 mg tablet 30 mg PO BID 03/31/24 04/14/24 History carvedilol 3.125 mg tablet 3.125 mg PO BID #90 tabs 04/04/24 04/14/24 Rx empagliflozin 10 mg tablet 10 mg PO DAILY #90 tabs 04/04/24 04/15/24 Rx (Jardiance) finasteride 5 mg tablet 5 mg PO HS #90 tabs 04/04/24 04/14/24 Rx irbesartan 75 mg tablet 75 mg PO DAILY #90 tabs 04/04/24 04/14/24 Rx rivaroxaban 15 mg tablet (Xarelto) 15 mg PO QPMWITHMEAL #60 tabs 04/04/24 04/14/24 Rx spironolactone 25 mg tablet 25 mg PO DAILY #90 tabs 04/04/24 04/14/24 Rx gemfibrozil 600 mg tablet 600 mg PO BID #90 tabs 04/13/24 04/14/24 Rx New Prescriptions to Start Prescriptions: Allergies Allergy/AdvReac Type Severity Reaction Status Date / Time oxycodone Allergy Intermediate I-RASH Verified 04/10/24 11:59 Sulfa (Sulfonamide Allergy Unknown Unknown Verified 04/10/24 11:59 Antibiotics) allergy reaction aspirin AdvReac Intermediate Other Verified 04/10/24 11:59 Assessment and Plan *Assessment and plan (1) Atypical angina: Status: Acute Category: Medical Code(s): I20.8 - Other forms of angina pectoris (2) HFrEF (heart failure with reduced ejection fraction): Status: Acute Category: Medical Code(s): I50.20 - Unspecified systolic (congestive) heart failure (3) Hx of CABG: Status: Chronic Category: Surgical Code(s): Z95.1 - Presence of aortocoronary bypass graft (4) CAD (coronary artery disease): Status: Acute Qualifiers: Coronary Disease-Associated Artery/Lesion type: bypass graft [place] vs. transplanted heart: [place] heart Associated angina: with other forms of angina Qualified Code(s): I25.708 - Atherosclerosis of coronary artery bypass graft(s), unspecified, with other forms of angina pectoris Category: Medical Code(s): I25.10 - Atherosclerotic heart disease of [place] coronary artery without angina pectoris (5) Diabetes mellitus: Status: Chronic Qualifiers: Diabetes mellitus type: type 1 Diabetes mellitus complication status: with other specified complication Qualified Code(s): E10.69 - Type 1 diabetes mellitus with other specified complication Category: Medical Code(s): E11.9 - Type 2 diabetes mellitus without complications (6) CKD stage 3a, GFR 45-59 ml/min: Status: Acute Category: Medical Code(s): N18.31 - Chronic kidney disease, stage 3a (7) HTN (hypertension): Status: Resolved Qualifiers: Hypertension type: primary hypertension Qualified Code(s): I10 - Essential (primary) hypertension Category: Medical Code(s): I10 - Essential (primary) hypertension (8) HLD (hyperlipidemia): Status: Resolved Qualifiers: Hyperlipidemia type: mixed hyperlipidemia Qualified Code(s): E78.2 - Mixed hyperlipidemia Category: Medical Code(s): E78.5 - Hyperlipidemia, unspecified Plan Plan: 1. The patient was admitted to the hospital with shortness of breath and hypotension. The patient is likely a little hypotensive because he is on guideline directed medical therapy for his HFrEF. His blood pressure is accepta ble at this time and is not running low. 2. Continue carvedilol, Jardiance, spironolactone, irbesartan and torsemide for HFrEF. 3. The patient has known coronary artery disease and has been having atypical angina and did have an elevated troponin on last admission. Will plan to proceed with left cardiac catheterization today to evaluate his coronary artery disease due to the atypical angina and known coronary artery disease. 4. The patient has been educated the risk and benefits of proceeding with left cardiac catheterization. The patient verbalized understanding and is agreeable in proceeding with the procedure. 5. The patient will be n.p.o. in preparation for left cardiac catheterization. 6. His blood pressure is well-controlled. 7. His LDL goal is less than 55. His LDL was 95 in September 2023. He is on a statin. 8. The patient does have severe LV dysfunction. His ejection fraction is 30%. He does have a LifeVest in place. 9. Further recommendations be made pending the patient's response to treatment and the results of his left cardiac catheterization today. Thank you for the opportunity to help dissipate in the care of this patient. All recommendations and orders are per Dr. Pak. Addendum: [facility] shows: The left main artery Normal The left anterior descending artery Has proximal 80% stenosis followed by mid vessel 70% stenosis with competitive flow from the left internal mammary artery The circumflex artery Nondominant and occluded at mid vessel The right coronary artery Is dominant and has proximal 40% stenosis with a mid vessel stent which has 30% concentric in-stent restenosis. Competitive flow is identified from the posterior descending artery. A large posterior lateral ventricular branch has diffuse 20 and 30% stenosis The GRIFFIN ventriculogram reveals Reduced 30 to 35% The left ventricular end-diastolic pressure 20 mmHg CRESPO to LAD patent Saphenous to circumflex artery patent Saphenous to posterior descending artery off the right coronary is patent IMPRESSION Patent coronary arteries as described above Reduced ejection fraction Borderline elevated LVEDP PLAN 1. Continue with standard therapy for systolic heart failure 2. Continue with standard therapy for ischemic heart disease 3. Evaluation for AICD after GDMT for appropriate length of time
[2024-04-16 16:27] LABS: POC Glucose,Bedside 215 (70-110)
--- NOTE | 2024-04-16 16:46 | EXP.DC.SUM ---
General Admission date:: 04/14/24 Discharge date: 04/16/24 HPI HPI HPI: Mr. Pemberton is an 84-year-old male with complex past medical history including worsening heart failure with reduced ejection fraction, chronic hypoxemic respiratory failure due to COPD on 3 to 4 L oxygen at home, obesity, uncontrolled diabetes, CKD, hypertension, PA H, difficulty with medication compliance, neuropathy. He presented to the ER with report of dizziness, weakness, shortness of breath. States he has been feeling more weak since last admission. Home health sent him to the ER because of dizziness and hypotension. He denies chest pain, nausea, vomiting. Has previously been admitted twice in the past month for pneumonia, A-fib, heart failure. Prior to coming to the ER, had a near syncopal event at the [facility] [place]. On evaluation in the ER, patient's blood pressure soft with MAP 60-65, systolic blood pressure 90. Alert and oriented and perfusing well. Labs obtained showing kidney function at or better than his baseline. Tolerating 2 to 3 L nasal cannula oxygen. Cardiology was consulted and recommended admission for evaluation given more symptomatology with his heart failure. Medicine consulted for admission and further management. On evaluation, patient reports to me that he has just been feeling more weak and fatigued. Has not been using his inhalers. Is comfortable on room air up to 2 L at rest but necessitates oxygen when he exerts himself. States he can barely walk across the room without getting short of breath and this is worse in the past 1 to 2 weeks. Of note, on exam he looks the same if not somewhat subjectively better than my last exam on him 2 weeks ago. Hospital Course Hospital Course Hospital Course: This is an 84-year-old male with morbid obesity, coronary artery disease, HFpEF and COPD who presents with shortness of air worse over the past 1-1/2 weeks. Also found to be hypotensive. Discussed case with ER, requests admission for further treatment and cardiology eval. Medicine agreed to admit. Patient remained hemodynamically stable was on 2 L during admission. Blood pressure showed improvement throughout course of admission. Cardiology evaluated and was taken for left heart cath. See report for full details however patient received no new stents at this time. No reversible disease. Stable to discharge home with home health. Problems addressed as follows: Myocardial injury type II A-fib, rate controlled Coronary artery disease Acute on chronic HFpEF [id number]. Rate controlled. Lipitor 40 mg nightly, Bumex 1 mg IV daily. Appears euvolemic at this time. Continue spironolactone 25 mg daily, continue carvedilol 3.125 mg twice daily. Resume irbesartan at 37.5 mg daily given improved blood in line with goal-directed therapy. Held anticoagulation due to admission for heart cath. Resume after heart cath. Troponin normalized from 0.04-0.02 during admission. Down from last visit. Echo from 04/03/24 with heart failure with reduced ejection fraction of 30%. Grade 2 diastolic dysfunction. 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 Responded well to increased diuresis. See med rec for full details of medications. No reversible disease. Stable to discharge home on goal-directed therapy for heart failure. Extensive discussion about patient's symptoms, need for compliance to medications, I am concerned that symptoms will worsen if not adhering to regimen and having close follow-up.. 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 Currently on 2 L. Baseline 3 to 4 L. DuoNebs scheduled every 4 hours as needed. White count normal during admission. Continue breathing treatments at discharge. Responded well to nebulizers during admission. Chronic kidney disease stage IIIa: Baseline 1.5-2.0. Creatinine remained within baseline range during admission. BUN 29, creatinine 1.8 on day of discharge. Iron deficiency anemia: Hemoglobin 11. TIBC 456 iron saturation 7.6%. Iron level 35. Received IV iron last admission. No further treatment at this time. Continue oral supplementation Diabetes, uncontrolled: Treated with sliding scale insulin and once daily basal insulin during admission. Most recent A1c 2 weeks ago 10.4. Recommend resuming home regimen at discharge. BPH/urinary retention: Continue tamsulosin 0.4 mg HS and finasteride 5 mg nightly Total time spent on discharge 45 minutes in counseling, documentation, chart review, and direct care with patient. Exam Data for Last 24 hours Vital signs and Labs for Last 24 Hours: Temp Pulse Resp BP Pulse Ox O2 Del Method O2 Flow Rate 98 F 72 16 127/59 L 96 Nasal Cannula 2 04/16/24 13:00 04/16/24 13:30 04/16/24 13:15 04/16/24 13:15 04/16/24 13:15 04/16/24 13:15 04/16/24 13:15 FiO2 28 04/15/24 00:21 Laboratory Results - last 24 hr 04/15/24 16:37: POC Glucose 366 H* 04/15/24 21:39: POC Glucose 342 H* 04/16/24 06:17: POC Glucose 209 H 04/16/24 06:22: WBC 4.5 L, RBC 3.93 L, Hgb 10.5 L, Hct 34.9 L, MCV 88.8, MCH 26.8 L, MCHC 30.2 L, RDW 18.9 H, Plt Count 229, MPV 8.4, Neut % (Auto) 64.2, Lymph % (Auto) 25.4, [place] % (Auto) 8.4, Eos % (Auto) 1.4, Baso % (Auto) 0.6, Neut # (Auto) 2.9, Lymph # (Auto) 1.2, [place] # (Auto) 0.4, Eos # (Auto) 0.1, Baso # (Auto) 0.0, Sodium 138, Potassium 4.1, Chloride 106, Carbon Dioxide 29, Anion Gap 7.1, BUN 29 H, Creatinine 1.80 H, Estimated Creat Clear 45, Estimated GFR 36 L, Est GFR ( Amer) 44 L, Glucose 193 H D, Calcium 8.0 L, Magnesium 2.2, Total Bilirubin 0.5, AST 36, ALT 22, Alkaline Phosphatase 86, Total Protein 6.0 L, Albumin 3.3 L, Globulin 2.7, Albumin/Globulin Ratio 1.2 04/16/24 16:19: POC Glucose 215 H I & O for Last 24 hours: Intake & Output 04/13/24 04/14/24 04/15/24 04/16/24 23:59 23:59 23:59 23:59 Intake Total 600 / 940 820 / 820 Output Total 350 / 350 1975 / 2350 1125 / 1125 Balance -350 / -50 -1375 / -1410 -305 / -305 Weight 99.79 kg 99.79 kg 99.78 kg Constitutional Constitutional: no acute distress, morbidly obese and chronically ill appearing *Routine HEENT Exam Head: Present normocephalic Eye: Present EOMI and normal accommodation ENT: Present mucous membranes moist and oropharynx clear *Routine Neck Exam Neck: Present supple and full ROM *Routine Respiratory Exam Respiratory: Present decreased breath sounds, prolonged expiratory phase and diminished air movement; Absent rhonchi, wheezes or crackles *Routine Cardiovascular Exam Cardiovascular: Present RRR, Normal S1 and Normal S2 *Routine Abdominal Exam Abdominal: Present soft and normoactive bowel sounds *Routine Rectal Exam Patient deferred: visual exam *Routine Exam Patient deferred: penile exam *Routine Extremities Exam Extremities: Present full ROM and normal capillary refill; Absent cyanosis or edema *Routine Skin Exam Skin: Present intact and dry *Routine Neurological Exam Neurological: Present alert, oriented X3, CN II-XII intact and moving all extremities; Absent altered mental status Results Data Completed and Pending Labs on day of discharge: Labs from last 24 hours 04/16/24 04/16/24 04/16/24 16:19 06:22 06:17 WBC 4.5 L RBC 3.93 L Hgb 10.5 L Hct 34.9 L MCV 88.8 MCH 26.8 L MCHC 30.2 L RDW 18.9 H Plt Count 229 MPV 8.4 Neut % (Auto) 64.2 Lymph % (Auto) 25.4 Roosevelt % (Auto) 8.4 Eos % (Auto) 1.4 Baso % (Auto) 0.6 Neut # (Auto) 2.9 Lymph # (Auto) 1.2 [place] # (Auto) 0.4 Eos # (Auto) 0.1 Baso # (Auto) 0.0 Sodium 138 Potassium 4.1 Chloride 106 Carbon Dioxide 29 Anion Gap 7.1 BUN 29 H Creatinine 1.80 H Estimated Creat Clear 45 Estimated GFR 36 L Est GFR ( Amer) 44 L Glucose 193 H D POC Glucose 215 H 209 H Calcium 8.0 L Magnesium 2.2 Total Bilirubin 0.5 AST 36 ALT 22 Alkaline Phosphatase 86 Total Protein 6.0 L Albumin 3.3 L Globulin 2.7 Albumin/Globulin Ratio 1.2 04/15/24 04/15/24 21:39 16:37 WBC RBC Hgb Hct MCV MCH MCHC RDW Plt Count MPV Neut % (Auto) Lymph % (Auto) [place] % (Auto) Eos % (Auto) Baso % (Auto) Neut # (Auto) Lymph # (Auto) Roosevelt # (Auto) Eos # (Auto) Baso # (Auto) Sodium Potassium Chloride Carbon Dioxide Anion Gap BUN Creatinine Estimated Creat Clear Estimated GFR Est GFR ( Amer) Glucose POC Glucose 342 H* 366 H* Calcium Magnesium Total Bilirubin AST ALT Alkaline Phosphatase Total Protein Albumin Globulin Albumin/Globulin Ratio DS: Diagnosis Discharge Diagnosis (1) Atypical angina: Status: Acute Code(s): I20.8 - Other forms of angina pectoris (2) HFrEF (heart failure with reduced ejection fraction): Status: Acute Code(s): I50.20 - Unspecified systolic (congestive) heart failure (3) Hx of CABG: Status: Chronic Code(s): Z95.1 - Presence of aortocoronary bypass graft (4) CAD (coronary artery disease): Status: Acute Code(s): I25.10 - Atherosclerotic heart disease of [place] coronary artery without angina pectoris Qualifiers: Associated angina: with other forms of angina Coronary Disease-Associated Artery/Lesion type: bypass graft [place] vs. transplanted heart: [place] heart Qualified Code(s): I25.708 - Atherosclerosis of coronary artery bypass graft(s), unspecified, with other forms of angina pectoris (5) Diabetes mellitus: Status: Chronic Code(s): E11.9 - Type 2 diabetes mellitus without complications Qualifiers: Diabetes mellitus complication status: with other specified complication Diabetes mellitus type: type 1 Qualified Code(s): E10.69 - Type 1 diabetes mellitus with other specified complication (6) CKD stage 3a, GFR 45-59 ml/min: Status: Acute Code(s): N18.31 - Chronic kidney disease, stage 3a (7) HTN (hypertension): Status: Resolved Code(s): I10 - Essential (primary) hypertension Qualifiers: Hypertension type: primary hypertension Qualified Code(s): I10 - Essential (primary) hypertension (8) HLD (hyperlipidemia): Status: Resolved Code(s): E78.5 - Hyperlipidemia, unspecified Qualifiers: Hyperlipidemia type: mixed hyperlipidemia Qualified Code(s): E78.2 - Mixed hyperlipidemia Meds Home Medications and Allergies Home Medications ?Medication ?Instructions ?Recorded ?Confirmed ?Type clopidogrel 75 mg tablet (Plavix) 75 mg PO DAILY #90 tabs 10/28/22 04/15/24 Rx insulin regular hum U-500 conc 500 120 unit (0.24 mL) SQ BIDWMEAL 11/05/22 04/15/24 Rx unit/mL(3 mL) subcut pen Diabetes 30 days #14.4 mL gabapentin 300 mg capsule 300 mg PO BID Pain #60 caps 11/21/23 04/14/24 Rx tiotropium 2.5 mcg-olodaterol 2.5 2 puff inhalation DAILY Breathing 11/21/23 04/15/24 Rx mcg/actuation mist for inhalation problems #4 grams (Stiolto Respimat) tamsulosin 0.4 mg capsule 0.4 mg PO DAILY 11/22/23 04/15/24 History hydrocodone 5 mg-acetaminophen 325 1 tab PO DAILY #30 tabs 03/21/24 04/14/24 Rx mg tablet nystatin 100,000 unit/gram topical 1 applic topical TID #60 grams 03/22/24 04/14/24 Rx cream ferrous gluconate 324 mg (38 mg 324 mg PO DAILY 03/31/24 04/15/24 History iron) tablet pantoprazole 40 mg tablet,delayed 40 mg PO DAILY 03/31/24 04/14/24 History release rosuvastatin 40 mg tablet 40 mg PO DAILY 03/31/24 04/14/24 History torsemide 10 mg tablet 30 mg PO BID 03/31/24 04/14/24 History carvedilol 3.125 mg tablet 3.125 mg PO BID #90 tabs 04/04/24 04/14/24 Rx empagliflozin 10 mg tablet 10 mg PO DAILY #90 tabs 04/04/24 04/15/24 Rx (Jardiance) finasteride 5 mg tablet 5 mg PO HS #90 tabs 04/04/24 04/14/24 Rx rivaroxaban 15 mg tablet (Xarelto) 15 mg PO QPMWITHMEAL #60 tabs 04/04/24 04/14/24 Rx spironolactone 25 mg tablet 25 mg PO DAILY #90 tabs 04/04/24 04/14/24 Rx gemfibrozil 600 mg tablet 600 mg PO BID #90 tabs 04/13/24 04/14/24 Rx albuterol sulfate 90 mcg/actuation 2 puff inhalation Q6H PRN 04/16/24 Rx aerosol inhaler shortness of breath or wheezing #8.5 grams irbesartan 75 mg tablet 37.5 mg (1/2 x 75 mg) PO DAILY 30 04/16/24 04/14/24 Rx days #90 tabs New Prescriptions to Start Prescriptions: albuterol sulfate Crow Urena Allergies Allergy/AdvReac Type Severity Reaction Status Date / Time oxycodone Allergy Intermediate I-RASH Verified 04/10/24 11:59 Sulfa (Sulfonamide Allergy Unknown Unknown Verified 04/10/24 11:59 Antibiotics) allergy reaction aspirin AdvReac Intermediate Other Verified 04/10/24 11:59 Discharge Plan Disposition Patient Disposition: Home Health Service Condition: Fair Discharge Order Discharge Orders: Discharge Order (Routine); Ordered 04/16/24 Ordered By: Crow Urena Follow up Plan Follow up with: Jaquan Aly MD [Staff Physician] - 04/25/24 1:15 pm Andres Valencia MD [Primary Care Provider] - 04/23/24 2:45 pm Prescriptions/Medication Reconciliation: New albuterol sulfate 90 mcg/actuation HFA aerosol inhaler 2 puff inhalation Q6H PRN (Reason: shortness of breath or wheezing) Qty: 8.5 0RF Continued insulin regular hum U-500 conc 500 unit/mL (3 mL) insulin pen 120 unit SQ BIDWMEAL 30 Days Qty: 14.4 10RF Stiolto Respimat 2.5-2.5 mcg/actuation mist 2 puff inhalation DAILY Qty: 4 12RF gabapentin 300 mg capsule 300 mg PO BID Qty: 60 5RF nystatin 100,000 unit/gram cream 1 applic topical TID Qty: 60 1RF clopidogrel [Plavix] 75 mg tablet 75 mg PO DAILY Qty: 90 3RF tamsulosin 0.4 mg capsule 0.4 mg PO DAILY gemfibrozil 600 mg tablet 600 mg PO BID Qty: 90 1RF torsemide 10 mg tablet 30 mg PO BID pantoprazole 40 mg tablet,delayed release (DR/EC) 40 mg PO DAILY rosuvastatin 40 mg tablet 40 mg PO DAILY ferrous gluconate 324 mg (38 mg iron) tablet 324 mg PO DAILY spironolactone 25 mg Tablet 25 mg PO DAILY Qty: 90 0RF Jardiance 10 mg Tablet 10 mg PO DAILY Qty: 90 0RF carvedilol 3.125 mg Tablet 3.125 mg PO BID Qty: 90 0RF finasteride 5 mg Tablet 5 mg PO HS Qty: 90 0RF Xarelto 15 mg Tablet 15 mg PO QPMWITHMEAL Qty: 60 0RF hydrocodone-acetaminophen 5-325 mg tablet 1 tab PO DAILY Qty: 30 0RF Changed irbesartan 75 mg Tablet 37.5 mg PO DAILY 30 Days Qty: 90 0RF Discontinued oxybutynin chloride 10 mg tablet extended release 24hr 10 mg PO DAILY Problem Reconciliation Problems Reviewed?: Yes Patient Discharge Instructions ACTIVITY: Continue current activity DIET: continue same diet Patient Instructions: DI for Heart Failure, DI for Hypotension Print Language: German Providers Primary Care Provider: Andres Valencia Provider: Crow Urena Attending Provider: Crow Urena
--- NOTE | 2024-04-17 13:58 | CARE MANAGER ---
Spoke with patient for post-discharge follow-up phone call, he is not sure if he got his inhaler that was ordered on discharge and is aware of his follow-up appointments.
== END 2024-04-16 18:30 | disposition home health service (06) ==
LOC: UTC 14:19 → ER 15:17 → ICU 16:52 → 2ND 04-15 12:22
PROVIDERS: Internal Medicine; Nurse Practitioner Family; Admitting Provider Internal Medicine Adolescent Medicine; Emergency Provider Student in an Organized Health Care Education/Training Program; PCP Family Medicine; Visit Provider Internal Medicine Adolescent Medicine
DX: J44.1 Chronic obstructive pulmonary disease with (acute) exacerbation (principal); I13.0 Hypertensive heart and chronic kidney disease with heart failure and stage 1 through stage 4 chronic kidney disease, or unspecified chronic kidney disease; I50.33 Acute on chronic diastolic (congestive) heart failure; I48.91 Unspecified atrial fibrillation; I21.A1 Myocardial infarction type 2; I25.708 Atherosclerosis of coronary artery bypass graft(s), unspecified, with other forms of angina pectoris; G47.30 Sleep apnea, unspecified; N18.31 Chronic kidney disease, stage 3a; E11.22 Type 2 diabetes mellitus with diabetic chronic kidney disease; D50.9 Iron deficiency anemia, unspecified; E66.01 Morbid (severe) obesity due to excess calories; Z68.34 Body mass index [BMI] 34.0-34.9, adult; Z95.1 Presence of aortocoronary bypass graft; E78.2 Mixed hyperlipidemia; Z79.4 Long term (current) 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; Z79.899 Other long term (current) drug therapy; Z99.81 Dependence on supplemental oxygen; J96.11 Chronic respiratory failure with hypoxia; I25.118 Atherosclerotic heart disease of native coronary artery with other forms of angina pectoris; I42.9 Cardiomyopathy, unspecified
CPT/HCPCS: 36415; 71045; 80053; 82550; 82553; 82962; 83605; 83735; 83880; 84484; 85025; 93005; 93459; 94640; 94760; 94761; 97162; 97165; 99152; 99285; C1725; C1769; C1894; G0378; J1200; J1644; J1939; J2250; J3010; J7620; Q9967

== ENCOUNTER 2024-07-28 17:38 | Emergency (ER) | payer MEDICARE, SELFPAY ==
[2024-07-28] VITALS (12 sets, daily range): BP systolic 95–201; BP diastolic 28–112; PULSE 35–75; RESP 13–29; TEMP 36.6–36.9; O2SAT 90–99; BMI 33.6
--- NOTE | 2024-07-28 17:35 | ECG_ITS ---
APPROVED REPORT Exam: Resting ECG HR:36 bpm ECG Measurements Heart Rate 36 AXES QRSd 142 QRS 52 QT 514 T 157 QTc 425 Conclusion ATRIAL FIBRILLATION WITH SLOW VENTRICULAR RESPONSE LEFT BUNDLE BRANCH BLOCK [120+ ms QRS DURATION, 80+ ms Q/S IN V1/V2, 85+ ms R IN I/aVL/V5/V6] Electronically signed by : FLETCHER ANDRES, 07/29/2024 14:57:59
--- NOTE | 2024-07-28 17:38 | XR_ITS ---
PROCEDURE INFORMATION: Exam: XR Chest Exam date and time: 07/28/2024 5:38 PM Age: 84 years old Clinical indication: Shortness of breath; Additional info: SOA, cp, near syncope TECHNIQUE: Imaging protocol: Radiologic exam of the chest. Views: 1 view. COMPARISON: CR XR CHEST AP 04/14/2024 2:44 PM FINDINGS: Tubes, catheters and devices: Extensive apparatus is present over the chest wall which limits study. Lungs: No evidence of acute pulmonary disease or infiltrates Pleural spaces: No large effusion or pneumothorax. Heart/Mediastinum: Stable cardiac and mediastinal contours. Bones/joints: No evidence of acute osseous abnormalities within the visualized portions of the thoracic spine and ribs. Osseous structures appear appropriate for patient age. The patient is status post median sternotomy. IMPRESSION: No dense parenchymal consolidation, pleural effusion, or pneumothorax.
[2024-07-28] MEDS: ATROPINE 1MG/10ML SYRINGE (CRASH CART) 0.5 MG IV (17:54)
--- NOTE | 2024-07-28 17:55 | [facility].EDCP ---
Discharge Plan Disposition Patient Disposition: Xfer Short-Term Hosp Chief Complaint: Arrhythmia/Palpitations Prescriptions Prescriptions: No Action oxybutynin chloride 10 mg tablet extended release 24hr PO Stiolto Respimat 2.5-2.5 mcg/actuation mist 2 puff inhalation DAILY Qty: 4 12RF torsemide 10 mg tablet 30 mg PO QAM tamsulosin 0.4 mg capsule 0.4 mg PO DAILY rosuvastatin 20 mg tablet 20 mg PO DAILY Qty: 90 3RF Xarelto 15 mg tablet 15 mg PO QPMWITHMEAL Qty: 60 0RF Jardiance 10 mg tablet 10 mg PO DAILY Qty: 90 0RF albuterol sulfate 90 mcg/actuation HFA aerosol inhaler 2 puff inhalation Q6H PRN (Reason: shortness of breath or wheezing) Qty: 8.5 12RF gabapentin 300 mg capsule See Rx Instructions .ROUTE .COMPLEX Qty: 60 3RF Dose Instruction: TAKE 1 CAPSULE BY MOUTH 2 TIMES A DAY FOR PAIN Rx Instructions: TAKE 1 CAPSULE BY MOUTH 2 TIMES A DAY FOR PAIN gemfibrozil 600 mg tablet 600 mg PO BID Qty: 90 1RF Humulin 70/30 U-100 KwikPen 100 unit/mL (70-30) insulin pen 50 unit SQ BID Qty: 15 3RF (DME) pen needle, diabetic [BD Jayne 2nd Gen Pen Needle] 32 gauge x 5/32 needle See Rx Instructions .ROUTE .MEDSUPPLY Qty: 1200 0RF Rx Instructions: As directed irbesartan 75 mg tablet 37.5 mg PO DAILY 30 Days Qty: 90 0RF spironolactone 25 mg tablet 25 mg PO DAILY Qty: 90 0RF finasteride 5 mg tablet 5 mg PO HS Qty: 90 0RF pantoprazole 40 mg tablet,delayed release (DR/EC) 40 mg PO DAILY Qty: 90 1RF nystatin 100,000 unit/gram cream 1 applic topical TID Qty: 60 1RF rosuvastatin 40 mg tablet 40 mg PO DAILY ferrous gluconate 324 mg (38 mg iron) tablet 324 mg PO DAILY hydrocodone-acetaminophen 5-325 mg tablet 1 tab PO DAILY Qty: 30 0RF Referrals Follow up/Referrals: Andres Valencia MD [Primary Care Provider] - See instructions Clinical Impressions Clinical Impression: Bradycardic cardiac arrest, Acute hyperkalemia, Hyperosmolar hyperglycemic state (HHS), Non-ST elevation CO (NSTEMI), CHF exacerbation Print Language Print Language: Singaporean Discharge ED Provider: Dixon Benitez HPI <Patty Mai ([facility]), DIRECT MAIL MARKETER - Last Filed: 07/28/24 17:55> General Chief Complaint: Arrhythmia/Palpitations Stated Complaint: Dizziness Time Seen by Provider: 07/28/24 17:41 Related Data Home Medications ?Medication ?Instructions ?Recorded ?Confirmed tamsulosin 0.4 mg capsule 0.4 mg PO DAILY 11/22/23 07/19/24 ferrous gluconate 324 mg (38 mg 324 mg PO DAILY 03/31/24 07/19/24 iron) tablet rosuvastatin 40 mg tablet 40 mg PO DAILY 03/31/24 07/19/24 oxybutynin chloride 10 mg mg PO 05/28/24 07/19/24 tablet,extended release 24 hr torsemide 10 mg tablet 30 mg PO QAM 07/19/24 Previous Rx's ?Medication ?Instructions ?Recorded tiotropium 2.5 mcg-olodaterol 2.5 2 puff inhalation DAILY Breathing 11/21/23 mcg/actuation mist for inhalation problems #4 grams (Stiolto Respimat) hydrocodone 5 mg-acetaminophen 325 1 tab PO DAILY #30 tabs 03/21/24 mg tablet rosuvastatin 20 mg tablet 20 mg PO DAILY #90 tabs 05/10/24 rivaroxaban 15 mg tablet (Xarelto) 15 mg PO QPMWITHMEAL #60 tabs 05/14/24 empagliflozin 10 mg tablet 10 mg PO DAILY #90 tabs 05/23/24 (Jardiance) albuterol sulfate 90 mcg/actuation 2 puff inhalation Q6H PRN 06/25/24 aerosol inhaler shortness of breath or wheezing #8.5 grams gabapentin 300 mg capsule See Rx Instructions .Route 06/25/24 .COMPLEX #60 caps gemfibrozil 600 mg tablet 600 mg PO BID #90 tabs 06/25/24 insulin NPH-regular 70-30 U-100 50 unit (0.5 mL) SQ BID #15 mL 07/05/24 insulin 100 unit/mL subcutaneous pen (Humulin 70/30 U-100 KwikPen) irbesartan 75 mg tablet 37.5 mg (1/2 x 75 mg) PO DAILY 30 07/10/24 days #90 tabs pen needle, diabetic 32 gauge x #1,200 ea 07/10/24 (BD Jayne 2nd Gen Pen Needle) spironolactone 25 mg tablet 25 mg PO DAILY #90 tabs 07/10/24 finasteride 5 mg tablet 5 mg PO HS #90 tabs 07/16/24 nystatin 100,000 unit/gram topical 1 applic topical TID #60 grams 07/23/24 cream pantoprazole 40 mg tablet,delayed 40 mg PO DAILY #90 tabs 07/23/24 release Allergies Allergy/AdvReac Type Severity Reaction Status Date / Time oxycodone Allergy Intermediate I-RASH Verified 07/19/24 14:02 Sulfa (Sulfonamide Allergy Unknown Unknown Verified 07/19/24 14:02 Antibiotics) allergy reaction aspirin AdvReac Intermediate Other Verified 07/19/24 14:02 <Dixon Benitez MD - Last Filed: 07/28/24 23:19> History of Present Illness HPI narrative: Please note that above description of symptoms, in this electronic medical record under categorization of recalled from ER triage doctor by RN are reflective of an initial nursing assessment, however, is not reflective of my full history and physical exam that was personally taken and clarified. Consequentially, this preceding description of symptoms, which may include the patient's categorized chief complaint in the EMR, do not reflect my personal clinical impression, and the ultimate description of history of present illness and patient stated complaints should be deferred to this section of the note. Unless stated otherwise or congruent with this section of the note, additional signs, symptoms, or incongruence should be interpreted as inaccurate with my clinical impression. [facility] <Patty Mai ([facility]), DIRECT MAIL MARKETER - Last Filed: 07/28/24 17:55> [facility] Disclaimer: The information contained in this section may have been updated after the patient was seen, as this information can be updated by other users. Medical History Chronic kidney disease Bradycardia HLD (hyperlipidemia) Atrial fibrillation Atypical angina HTN (hypertension) Morbid obesity with BMI of 40.0-44.9, adult CKD stage 3a, GFR 45-59 ml/min Iron deficiency anemia Multiple pulmonary nodules Chronic hypoxemic respiratory failure COPD (chronic obstructive pulmonary disease) Pulmonary emphysema Stopped smoking with greater than 30 pack year history Lung nodule Dyspnea on exertion Sleep apnea Diabetes mellitus Abnormal EKG JUAN FRANCISCO (cerebral atherosclerosis) Edema Pre-op evaluation Claudication Paroxysmal atrial fibrillation HHD (hypertensive heart disease) Surgical History History of prostate surgery History of heart artery stent Family History Other Anemia Coronary artery disease Diabetes Heart attack Hyperlipidemia Hypertension Stroke Social History Smoking Status: Former smoker tobacco type: cigarettes packs per day: 2 second hand exposure: No alcohol intake: never substance use type: denies use current occupational status: retired Travel in the last 8 weeks: None household members: spouse housing: house current occupational exposures/hazards: No caffeine: Yes Have you lived/traveled outside [place] in past 30 days?: No Contact w/someone who lives/traveled outside US past 30 days?: No Exposure to someone with infectious disease in past 14 days?: No Do you have a fever (greater than 100.4 F or 38 C)?: No Have you tested positive for COVID-19: No Exposed to someone with COVID-19 in past 14 days?: No Do you have a sore throat?: No Do you have a cough?: No Do you have any weakness?: No Do you have any diarrhea?: No Are you experiencing any unusual bleeding?: No Do you have any muscle aches/pain?: No Do you have any abdominal pain?: No Are you experiencing loss of taste or smell?: No Other Medical History Have you received the Flu Vaccine for this season: No Have you received the Pneumonia Vaccine: Yes <Dixon Benitez MD - Last Filed: 07/28/24 23:19> ROS Obtained: Yes All systems reviewed & no additional complaints except as documented Physical Exam <Dixon Benitez MD - Last Filed: 07/28/24 23:19> General General appearance: alert and in distress Neck Neck exam: Present trachea midline Chest Chest inspection: Present normal inspection and symmetric chest wall rise Respiratory Respiratory exam: Present normal lung sounds bilaterally; Absent respiratory distress, wheezes, stridor, accessory muscle use or prolonged expiratory phase Cardiovascular Cardiovascular exam: Present bradycardia, systolic murmur and other (Pulses equal and symmetric in upper and lower extremities) Abdominal Exam Abdominal exam: Present soft; Absent distention Extremities Exam Extremities exam: Absent edema Neurological Exam Neurological exam: Present alert, oriented X3 and CN II-XII intact; Absent motor sensory deficit Skin Skin exam: Present warm, dry and pallor; Absent cyanosis or diaphoresis HEART Score <Dixon Benitez MD - Last Filed: 07/28/24 23:19> HEART Score HEART Score assessment performed?: Yes History (anamnesis): Moderately suspicious ECG: Non-specific disturbance Age: >65 years Risk factors: 3 or more risk factors Troponin: 1-3x normal limit HEART Score: 7 Critical Care <Dixon Benitez MD - Last Filed: 07/28/24 23:19> Critical Care Time Critical Care Time: Yes (Cardiovascular) Attestation: On 07/28/24, the high probability of a clinically significant, sudden or life threatening deterioration of the following system(s) required my full and direct attention, intervention and personal management. The time I documented below is in addition to time spent performing reported procedures but includes the following listed in this critical care notation. Total Time Total Critical Care Time: 90 Medical Decision Making <Patty Mai ([facility]), DIRECT MAIL MARKETER - Last Filed: 07/28/24 17:55> Vital Signs Vital Signs: 07/28/24 17:42 07/28/24 17:46 07/28/24 18:01 Temperature 98.4 F Temperature Source Oral Pulse Rate 37 L 35 L Pulse Rate [Left] 38 L Respiratory Rate 20 15 13 Blood Pressure 129/34 L 120/30 L Blood Pressure [Left Arm] 110/28 L Blood Pressure Mean [Left Arm] 55 Blood Pressure Source [Left Arm] Manual Cuff/ Auscultation Blood Pressure Position [Left Arm] Supine 02 Sat by Pulse Oximetry 98 99 98 Oxygen Delivery Method Nasal Cannula Nasal Cannula Nasal Cannula Oxygen Flow Rate (LPM) 2 2 2 07/28/24 18:10 07/28/24 18:16 07/28/24 18:21 Temperature Temperature Source Pulse Rate Pulse Rate [Left] Respiratory Rate 13 16 20 Blood Pressure 130/107 H 177/111 H 201/66 H Blood Pressure [Left Arm] Blood Pressure Mean [Left Arm] Blood Pressure Source [Left Arm] Blood Pressure Position [Left Arm] 02 Sat by Pulse Oximetry Oxygen Delivery Method Oxygen Flow Rate (LPM) 07/28/24 18:31 07/28/24 18:36 07/28/24 18:41 Temperature Temperature Source Pulse Rate 61 53 L 54 L Pulse Rate [Left] Respiratory Rate 17 21 29 H Blood Pressure 153/44 H 95/53 L 169/49 H Blood Pressure [Left Arm] Blood Pressure Mean [Left Arm] Blood Pressure Source [Left Arm] Blood Pressure Position [Left Arm] 02 Sat by Pulse Oximetry 91 L 92 L 90 L Oxygen Delivery Method Nasal Cannula Nasal Cannula Nasal Cannula Oxygen Flow Rate (LPM) 2 2 2 07/28/24 18:46 07/28/24 20:55 07/28/24 22:23 Temperature 97.9 F Temperature Source Tympanic Pulse Rate 50 L 45 L 75 Pulse Rate [Left] Respiratory Rate 21 20 18 Blood Pressure 178/52 H 138/112 H 128/69 Blood Pressure [Left Arm] Blood Pressure Mean [Left Arm] Blood Pressure Source [Left Arm] Blood Pressure Position [Left Arm] 02 Sat by Pulse Oximetry 90 L 96 96 Oxygen Delivery Method Nasal Cannula Nasal Cannula Nasal Cannula Oxygen Flow Rate (LPM) 2 2 2 Lab Data Labs: Lab Results 07/28/24 17:34: WBC 7.9, RBC 4.18 L, Hgb 9.8 L, Hct 34.2 L, MCV 81.8, MCH 23.4 L, MCHC 28.7 L, RDW 16.4, Plt Count 255, MPV 10.6 H, Neut % (Auto) 72.7, Lymph % (Auto) 17.4, Glynn % (Auto) 6.7, Eos % (Auto) 2.3, Baso % (Auto) 0.5, Neut # (Auto) 5.8, Lymph # (Auto) 1.4, Glynn # (Auto) 0.5, Eos # (Auto) 0.2, Baso # (Auto) 0.0, PT 10.9, INR 0.97, APTT 27.1, Sodium 128 L, Potassium 6.4 H*, Chloride 94 L, Carbon Dioxide 20 L, Anion Gap 20.4 H, BUN 42 H, Creatinine 1.90 H, Estimated Creat Clear 41, Estimated GFR 34 L, Est GFR ( Amer) 41 L, Glucose 780 H*, Hemoglobin A1c > 14.0 H D, Calcium 8.7, Magnesium 2.1, Total Bilirubin 0.5, AST 28, ALT 20, Alkaline Phosphatase 104, Troponin I 0.01, NT-Pro-B Natriuret Pep 1670 H, Total Protein 6.0 L, Albumin 3.9, Globulin 2.1, Albumin/Globulin Ratio 1.9 H, Triglycerides 345 H, Cholesterol 154, LDL Cholesterol Direct 87.16 L, VLDL Cholesterol 69 H, HDL Cholesterol 26 L, Cholesterol/HDL Ratio 5.9 H, Lipase 111, TSH 2.09, Thyroxine (T4) 5.7, Acetone Level None detected 07/28/24 17:40: VBG pH 7.26 L, VBG pCO2 40.5, VBG pO2 60.1 H, VBG HCO3 17.7 L, VBG Total CO2 18.9 L, VBG O2 Saturation 87.2 H, VBG Base Excess -9.4 L, VBG Lactic Acid 4.6 H 07/28/24 19:37: Urine Color Straw, Urine Appearance Clear, Urine pH 6.0, Ur Specific [place] <= 1.005, Urine Protein Negative, Urine Glucose (UA) 3+, Urine Ketones Negative, Urine Blood Trace-i, Urine Nitrate Negative, Urine Bilirubin Negative, Urine Urobilinogen 0.2, Ur Leukocyte Esterase Negative, Urine RBC Occasional, Urine WBC Occasional, Ur Squamous Epith Cells None, Urine Bacteria Trace 07/28/24 20:18: Sodium 129 L, Potassium 4.9 D, Chloride 96 L, Carbon Dioxide 22, Anion Gap 15.9 H, BUN 44 H, Creatinine 1.90 H, Estimated Creat Clear 41, Estimated GFR 34 L, Est GFR ( Amer) 41 L, Glucose 612 H* D, Calcium 10.5 H, Troponin I 0.07 H 07/28/24 17:34 07/28/24 20:18 Response Orders (Tests/Meds): ED MEDICATIONS Generic Name Dose Route Start Last Admin Trade Name Freq PRN Reason Stop Dose Admin Dopamine HCl/Dextrose 250 mls @ 18.285 mls/hr 07/28/24 18:19 07/28/24 22:22 Dopamine 400mg/250ml D5w IV 08/27/24 18:18 10 mcg/kg/min .[id number] MARYAN 36.57 mls/hr Titration Protocol 5 MCG/KG/MIN Insulin Human Regular 100 unit 101 mls @ 9.85 mls/hr 07/28/24 19:36 07/28/24 23:16 / Sodium Chloride IV 08/27/24 19:35 0.15 units/kg/hr .[id number] MARYAN 15 mls/hr Titration Protocol 0.1 UNITS/KG/HR Discontinued Medications Generic Name Dose Route Start Last Admin Trade Name Elizabet PRN Reason Stop Dose Admin Atropine Sulfate 0.5 mg 07/28/24 17:43 07/28/24 17:54 Atropine 1mg/10ml Syringe (Crash Cart) IV 07/28/24 17:44 0.5 mg ONCE ONE Administration Epinephrine HCl 0.5 mg 07/28/24 18:19 07/28/24 18:39 Epinephrine 1mg/Ml 30ml Vial IV 07/28/24 18:20 Not Given ONCE ONE Epinephrine HCl 0.5 mg 07/28/24 18:13 07/28/24 18:13 Epinephrine 0.1 Mg/Ml 10ml Syringe (Crash Cart) IV 07/28/24 18:14 0.5 mg ONCE ONE Administration Calcium Chloride 1 gm/ Sodium 110 mls @ 55 mls/hr 07/28/24 18:19 07/28/24 18:11 Chloride IV 07/28/24 18:20 55 mls/hr ONCE ONE Administration Insulin Human Regular 10 unit 07/28/24 18:25 07/28/24 18:14 Insulin Human Regular 100 Units/Ml 10ml Vial 0.1 unit/kg (10 unit) 07/28/24 18:26 10 unit IV Administration ONCE ONE Ondansetron HCl 4 mg 07/28/24 21:02 07/28/24 21:17 Ondansetron 4mg/2ml Vial IV 07/28/24 21:03 4 mg ONCE ONE Administration Sodium Bicarbonate 50 meq 07/28/24 18:19 07/28/24 18:15 Sodium Bicarb 8.4% 50ml Syringe (Crash Cart) IV 07/28/24 18:20 50 meq ONCE ONE Administration ORDERS Category Date Time Status XR chest portable Stat Exams 07/28/24 17:38 Completed Acetone, Serum (Rapid) Stat Lab 07/28/24 17:34 Completed Basic Metabolic Panel Stat Lab 07/28/24 20:18 Completed Complete Blood Count Auto Diff Stat Lab 07/28/24 17:34 Completed Comprehensive Metabolic Panel Stat Lab 07/28/24 17:34 Completed Hemoglobin A1C Stat Lab 07/28/24 17:34 Completed Lactic Acid Follow Up (RFLX 1) Stat Lab 07/28/24 22:10 Ordered Lactic Acid Routine Lab 07/28/24 17:39 Ordered Lipase Stat Lab 07/28/24 17:34 Completed Lipid Panel Stat Lab 07/28/24 17:34 Completed Magnesium Stat Lab 07/28/24 17:34 Completed NT Pro Brain Natriuretic Pep. Stat Lab 07/28/24 17:34 Completed PT INR [Prothrombin Time INR] Stat Lab 07/28/24 17:34 Completed PTT [Activated Partial Thrombo Time] Stat Lab 07/28/24 17:34 Completed Rapid PCR Covid and Flu A/B Stat Lab 07/28/24 23:17 Ordered T4 (Thyroxine) Stat Lab 07/28/24 17:34 Completed TSH [Thyroid Stimulating Hormone] Stat Lab 07/28/24 17:34 Completed Troponin I Q3H Lab 07/28/24 20:18 Completed Troponin I Q3H Lab 07/28/24 23:45 Ordered Troponin I Stat Lab 07/28/24 17:34 Completed UA [Urinalysis and Microscopic] Stat Lab 07/28/24 19:37 Completed Blood Culture Stat Micro 07/28/24 19:40 Ordered VBG [Venous Blood Gas] Stat RT 07/28/24 17:40 Completed <Dixon Benitez MD - Last Filed: 07/28/24 23:19> Medical Records Medical records reviewed: Yes I reviewed the patient's medical records. Bill Inquiry Pt receiving controlled substance: No Bill was queried for this patient: No Vital Signs Vital Signs: 07/28/24 17:42 07/28/24 17:46 07/28/24 18:01 Temperature 98.4 F Temperature Source Oral Pulse Rate 37 L 35 L Pulse Rate [Left] 38 L Respiratory Rate 20 15 13 Blood Pressure 129/34 L 120/30 L Blood Pressure [Left Arm] 110/28 L Blood Pressure Mean [Left Arm] 55 Blood Pressure Source [Left Arm] Manual Cuff/ Auscultation Blood Pressure Position [Left Arm] Supine 02 Sat by Pulse Oximetry 98 99 98 Oxygen Delivery Method Nasal Cannula Nasal Cannula Nasal Cannula Oxygen Flow Rate (LPM) 2 2 2 07/28/24 18:10 07/28/24 18:16 07/28/24 18:21 Temperature Temperature Source Pulse Rate Pulse Rate [Left] Respiratory Rate 13 16 20 Blood Pressure 130/107 H 177/111 H 201/66 H Blood Pressure [Left Arm] Blood Pressure Mean [Left Arm] Blood Pressure Source [Left Arm] Blood Pressure Position [Left Arm] 02 Sat by Pulse Oximetry Oxygen Delivery Method Oxygen Flow Rate (LPM) 07/28/24 18:31 07/28/24 18:36 07/28/24 18:41 Temperature Temperature Source Pulse Rate 61 53 L 54 L Pulse Rate [Left] Respiratory Rate 17 21 29 H Blood Pressure 153/44 H 95/53 L 169/49 H Blood Pressure [Left Arm] Blood Pressure Mean [Left Arm] Blood Pressure Source [Left Arm] Blood Pressure Position [Left Arm] 02 Sat by Pulse Oximetry 91 L 92 L 90 L Oxygen Delivery Method Nasal Cannula Nasal Cannula Nasal Cannula Oxygen Flow Rate (LPM) 2 2 2 07/28/24 18:46 07/28/24 20:55 07/28/24 22:23 Temperature 97.9 F Temperature Source Tympanic Pulse Rate 50 L 45 L 75 Pulse Rate [Left] Respiratory Rate 21 20 18 Blood Pressure 178/52 H 138/112 H 128/69 Blood Pressure [Left Arm] Blood Pressure Mean [Left Arm] Blood Pressure Source [Left Arm] Blood Pressure Position [Left Arm] 02 Sat by Pulse Oximetry 90 L 96 96 Oxygen Delivery Method Nasal Cannula Nasal Cannula Nasal Cannula Oxygen Flow Rate (LPM) 2 2 2 Lab Data Labs: Lab Results 07/28/24 17:34: WBC 7.9, RBC 4.18 L, Hgb 9.8 L, Hct 34.2 L, MCV 81.8, MCH 23.4 L, MCHC 28.7 L, RDW 16.4, Plt Count 255, MPV 10.6 H, Neut % (Auto) 72.7, Lymph % (Auto) 17.4, Glynn % (Auto) 6.7, Eos % (Auto) 2.3, Baso % (Auto) 0.5, Neut # (Auto) 5.8, Lymph # (Auto) 1.4, Glynn # (Auto) 0.5, Eos # (Auto) 0.2, Baso # (Auto) 0.0, PT 10.9, INR 0.97, APTT 27.1, Sodium 128 L, Potassium 6.4 H*, Chloride 94 L, Carbon Dioxide 20 L, Anion Gap 20.4 H, BUN 42 H, Creatinine 1.90 H, Estimated Creat Clear 41, Estimated GFR 34 L, Est GFR ( Amer) 41 L, Glucose 780 H*, Hemoglobin A1c > 14.0 H D, Calcium 8.7, Magnesium 2.1, Total Bilirubin 0.5, AST 28, ALT 20, Alkaline Phosphatase 104, Troponin I 0.01, NT-Pro-B Natriuret Pep 1670 H, Total Protein 6.0 L, Albumin 3.9, Globulin 2.1, Albumin/Globulin Ratio 1.9 H, Triglycerides 345 H, Cholesterol 154, LDL Cholesterol Direct 87.16 L, VLDL Cholesterol 69 H, HDL Cholesterol 26 L, Cholesterol/HDL Ratio 5.9 H, Lipase 111, TSH 2.09, Thyroxine (T4) 5.7, Acetone Level None detected 07/28/24 17:40: VBG pH 7.26 L, VBG pCO2 40.5, VBG pO2 60.1 H, VBG HCO3 17.7 L, VBG Total CO2 18.9 L, VBG O2 Saturation 87.2 H, VBG Base Excess -9.4 L, VBG Lactic Acid 4.6 H 07/28/24 19:37: Urine Color Straw, Urine Appearance Clear, Urine pH 6.0, Ur Specific [place] <= 1.005, Urine Protein Negative, Urine Glucose (UA) 3+, Urine Ketones Negative, Urine Blood Trace-i, Urine Nitrate Negative, Urine Bilirubin Negative, Urine Urobilinogen 0.2, Ur Leukocyte Esterase Negative, Urine RBC Occasional, Urine WBC Occasional, Ur Squamous Epith Cells None, Urine Bacteria Trace 07/28/24 20:18: Sodium 129 L, Potassium 4.9 D, Chloride 96 L, Carbon Dioxide 22, Anion Gap 15.9 H, BUN 44 H, Creatinine 1.90 H, Estimated Creat Clear 41, Estimated GFR 34 L, Est GFR ( Amer) 41 L, Glucose 612 H* D, Calcium 10.5 H, Troponin I 0.07 H Response Orders (Tests/Meds): ED MEDICATIONS Generic Name Dose Route Start Last Admin Trade Name Freq PRN Reason Stop Dose Admin Dopamine HCl/Dextrose 250 mls @ 18.285 mls/hr 07/28/24 18:19 07/28/24 22:22 Dopamine 400mg/250ml D5w IV 08/27/24 18:18 10 mcg/kg/min .[id number] MARYAN 36.57 mls/hr Titration Protocol 5 MCG/KG/MIN Insulin Human Regular 100 unit 101 mls @ 9.85 mls/hr 07/28/24 19:36 07/28/24 23:16 / Sodium Chloride IV 08/27/24 19:35 0.15 units/kg/hr .[id number] MARYAN 15 mls/hr Titration Protocol 0.1 UNITS/KG/HR Discontinued Medications Generic Name Dose Route Start Last Admin Trade Name Erasmoq PRN Reason Stop Dose Admin Atropine Sulfate 0.5 mg 07/28/24 17:43 07/28/24 17:54 Atropine 1mg/10ml Syringe (Crash Cart) IV 07/28/24 17:44 0.5 mg ONCE ONE Administration Epinephrine HCl 0.5 mg 07/28/24 18:19 07/28/24 18:39 Epinephrine 1mg/Ml 30ml Vial IV 07/28/24 18:20 Not Given ONCE ONE Epinephrine HCl 0.5 mg 07/28/24 18:13 07/28/24 18:13 Epinephrine 0.1 Mg/Ml 10ml Syringe (Crash Cart) IV 07/28/24 18:14 0.5 mg ONCE ONE Administration Calcium Chloride 1 gm/ Sodium 110 mls @ 55 mls/hr 07/28/24 18:19 07/28/24 18:11 Chloride IV 07/28/24 18:20 55 mls/hr ONCE ONE Administration Insulin Human Regular 10 unit 07/28/24 18:25 07/28/24 18:14 Insulin Human Regular 100 Units/Ml 10ml Vial 0.1 unit/kg (10 unit) 07/28/24 18:26 10 unit IV Administration ONCE ONE Ondansetron HCl 4 mg 07/28/24 21:02 07/28/24 21:17 Ondansetron 4mg/2ml Vial IV 07/28/24 21:03 4 mg ONCE ONE Administration Sodium Bicarbonate 50 meq 07/28/24 18:19 07/28/24 18:15 Sodium Bicarb 8.4% 50ml Syringe (Crash Cart) IV 07/28/24 18:20 50 meq ONCE ONE Administration ORDERS Category Date Time Status XR chest portable Stat Exams 07/28/24 17:38 Completed Acetone, Serum (Rapid) Stat Lab 07/28/24 17:34 Completed Basic Metabolic Panel Stat Lab 07/28/24 20:18 Completed Complete Blood Count Auto Diff Stat Lab 07/28/24 17:34 Completed Comprehensive Metabolic Panel Stat Lab 07/28/24 17:34 Completed Hemoglobin A1C Stat Lab 07/28/24 17:34 Completed Lactic Acid Follow Up (RFLX 1) Stat Lab 07/28/24 22:10 Ordered Lactic Acid Routine Lab 07/28/24 17:39 Ordered Lipase Stat Lab 07/28/24 17:34 Completed Lipid Panel Stat Lab 07/28/24 17:34 Completed Magnesium Stat Lab 07/28/24 17:34 Completed NT Pro Brain Natriuretic Pep. Stat Lab 07/28/24 17:34 Completed PT INR [Prothrombin Time INR] Stat Lab 07/28/24 17:34 Completed PTT [Activated Partial Thrombo Time] Stat Lab 07/28/24 17:34 Completed Rapid PCR Covid and Flu A/B Stat Lab 07/28/24 23:17 Ordered T4 (Thyroxine) Stat Lab 07/28/24 17:34 Completed TSH [Thyroid Stimulating Hormone] Stat Lab 07/28/24 17:34 Completed Troponin I Q3H Lab 07/28/24 20:18 Completed Troponin I Q3H Lab 07/28/24 23:45 Ordered Troponin I Stat Lab 07/28/24 17:34 Completed UA [Urinalysis and Microscopic] Stat Lab 07/28/24 19:37 Completed Blood Culture Stat Micro 07/28/24 19:40 Ordered VBG [Venous Blood Gas] Stat RT 07/28/24 17:40 Completed MDM Narrative Medical Decision Narrative: This is a an 84-year-old male with history of hypertension, hyperlipidemia, poorly controlled diabetes, CAD status post CABG, cardiomyopathy with LifeVest in place, CKD, COPD on home oxygen presenting with hyperglycemia. Patient states that his glucose monitor was reading high today. Also feeling lightheaded. No chest pain, nausea, vomiting, but has been presyncopal. No fevers or chills, any other associated symptoms. States last time that he felt this way he needed stents in his heart. History was obtained via conversation with patient and EMS. On arrival, patient hemodynamically stable, alert, oriented x4, appropriate, GCS 15, moving all extremities spontaneously, pupils equal and reactive to light. Full physical exam performed and significant for chronically ill-appearing male in mild distress intermittently. Seems to be going in and out of consciousness, but no loss of continence, immediately oriented afterward. Does not appear to be seizure-like activity. Cardiac exam with systolic murmur right upper sternal border murmur. Lungs are clear. Patient neurologically intact otherwise between these episodes. Differential includes malignant arrhythmia, metabolic abnormality, endocrinologic abnormality, DKA, sepsis, ACS, CO, CHF exacerbation, cardiogenic shock, among others. Patient was given 324 mg aspirin, atropine IV initially for symptomatic management and correction of underlying abnormalities. Patient placed on continuous cardiac monitoring and continuous pulse ox with initial blood pressure 129/34, heart rate 37, saturation 98% on 2 L nasal cannula. Independent interpretation of EKG shows junctional bradycardia 36 bpm with QRS 142, QTc 425. No acute ischemic change. Normal axis. Shortly after EKG, patient having intermittent syncope. Pads were placed, patient on the monitor going in and out of asystole. Given atropine not working, 0.5 mg of epinephrine was given. Patient had ventricular tachycardia sustained for 10 to 15 seconds, leveled out around 100 bpm. Cardiology was contacted and case was discussed. Recommended empiric treatment for hyperkalemia, as well as dopamine drip. All of these were ordered. Patient received calcium chloride, sodium bicarb, 10 units of insulin (without dextrose given hyperglycemia reading too high on our monitor). Repeat EKG shortly thereafter with what appears to be junctional rhythm right bundle branch block morphology. Diffuse ST depressions consistent with subendocardial injury, likely secondary to iatrogenic cause may need to resuscitate patient with epinephrine to prevent cardiac arrest. Workup independently interpreted and significant for nonactionable CBC. Patient's gas with pH 7.26/CO2 40/O2 60/bicarb 17/lactate 4.6. Patient's chemistry with hyponatremia 128, hyperkalemia 6.4, BUN 42/creatinine 190 (actually better than baseline of around 2.3.). Glucose right around 800. Initial troponin negative at 0.01, BNP elevated 1760. Anion gap elevated at 20. Patient started on insulin drip. on independent interpretation of imaging, patient has no acute cardiopulmonary airspace disease. See radiology read for full review of final results. Heart score 7. Patient initiated on insulin drip and maintained on dopamine drip. Hospital medicine was contacted and case was discussed, hospital is full, we have no ability to take care of ICU patients. [facility], so [facility] was contacted. Stated that they will accept patient to the [facility], however they do not have staff coming in until around 11:30 PM on 07/28, so need to wait until that time in order to transfer patient. Because patient high risk for clinical decompensation if discharged, deemed appropriate for transfer and inpatient admission. Results were relayed to patient who voiced understanding and patient was agreeable to transfer, inpatient admission, and management. Patient was graciously accepted and transferred to [facility] for further definitive management, under Dr. Oscar. Manager Medical Affairs disclaimer Much of this encounter note is an electronic shoe repairman spoken language to printed text. Electronic shoe repairman of the spoken language may permit errors. Although I have reviewed the note, some errors may still exist.
--- NOTE | 2024-07-28 18:00 | PC.NURSE ---
[facility] is reading HI at 1733.
[2024-07-28 18:05] LABS: VBG Base Excess -9.4 mmol/L (-2.4-2.3); VBG HCO3 17.7 mmol/L (23-30); VBG Oxygen Saturation 87.2 % (50-70); VBG PCO2 40.5 mmol/L (35-51); VBG PH 7.26 mmol/L (7.31-7.41); VBG PO2 60.1 mmol/L (28-40); VBG Total CO2 18.9 mmol/L (23-27)
--- NOTE | 2024-07-28 18:06 | PC.NURSE ---
DR ANDRES SPEAKING WITH DR GUNN
[2024-07-28 18:10] LABS: Lactate Venous 4.6 mmol/L (0.4-2.0)
[2024-07-28] MEDS: CALCIUM CHLORIDE 1 GM in 0.9 % SODIUM CHLORIDE 100 ML IV (18:11)
[2024-07-28] MEDS: EPINEPHrine 0.1 MG/ML 10ML SYRINGE (CRASH CART) 0.5 MG IV (18:13)
[2024-07-28] MEDS: INSULIN HUMAN REGULAR 100 UNITS/ML 10ML VIAL 10 UNIT IV (18:14)
[2024-07-28] MEDS: SODIUM BICARB 8.4% 50ML SYRINGE (CRASH CART) 50 MEQ IV (18:15)
[2024-07-28 18:16] LABS: Basophils % 0.5 % (0.1-2.0); Eosinophils # 0.2 K/mm3 (0.0-0.4); Eosinophils % 2.3 % (0.1-12.0); Hematocrit 34.2 % (42.0-52.0); Hemoglobin 9.8 g/dL (14.1-18.0); Lymphocytes # 1.4 K/mm3 (0.7-4.5); Lymphocytes % 17.4 % (10-50); Mean Corpuscular HGB Conc 28.7 g/dL (31.8-35.4); Mean Corpuscular Hemoglobin 23.4 pg (27.0-31.2); Mean Corpuscular Volume 81.8 fl (80-94); Mean Platelet Volume 10.6 fl (7.4-10.4); Monocytes # 0.5 K/mm3 (0.1-1.0); Monocytes % 6.7 % (1.7-9.3); Neutrophils # 5.8 K/mm3 (1.8-7.8); Neutrophils % 72.7 % (37.0-80.0); Platelet Count 255 K/mm3 (142-424); Red Blood Count 4.18 M/mm3 (4.60-6.20); Red Cell Distribution Width 16.4 % (11.5-17.5); White Blood Count 7.9 K/mm3 (4.8-10.8)
--- NOTE | 2024-07-28 18:20 | ECG_ITS ---
APPROVED REPORT Exam: Resting ECG HR:80 bpm ECG Measurements Heart Rate 80 AXES QRSd 114 QRS 48 QT 327 T 71 QTc 363 Conclusion Junctional rhythm Right bundle branch block ST depressions without reciprocal elevations Electronically signed by : FLETCHER ANDRES, 07/29/2024 15:00:25
[2024-07-28 18:23] LABS: Activated Partial Thrombo Time 27.1 seconds (22.8-30.6); Chol/HDL Ratio 5.9 (1-3.5); Cholesterol 154 mg/dl (140-200); HDL Cholesterol 26 mg/dl (40-60); Lipase 111 U/L (23-300); Magnesium 2.1 mg/dl (1.6-2.3); Triglycerides 345 mg/dl (30-150); VLDL Cholesterol 69 mg/dL (0-40)
[2024-07-28 18:24] LABS: Alanine Aminotransferase 20 U/L (12-78); Albumin Level 3.9 g/dl (3.5-5.0); Albumin/Globulin Ratio 1.9 (1.1-1.8); Alkaline Phosphatase 104 U/L (38-126); Aspartate Amino Transferase 28 U/L (17-59); Bilirubin,Total 0.5 mg/dl (0.2-1.3); Blood Urea Nitrogen 42 mg/dl (9-20); Calcium 8.7 mg/dl (8.4-10.2); Carbon Dioxide 20 mmol/L (22.0-30.0); Chloride 94 mmol/L (98-107); Creatinine Clearance Estimated 41 mL/min (50-200); Estimated Glomerular Filt Rate 34 ml/min (>60); GFR (African American) 41 ML/MIN (>60); Globulin 2.1 g/dL (1.3-3.2); Sodium 128 mmol/L (136-145)
[2024-07-28 18:33] LABS: INR 0.97 (0.9-1.1); Prothrombin Time 10.9 seconds (10.1-12.5)
[2024-07-28 18:34] LABS: Direct LDL Cholesterol 87.16 mg/dL (100-129)
[2024-07-28 18:36] LABS: NT Pro Brain Natriuretic Pep. 1670 pg/mL (0-450)
[2024-07-28] MEDS: DOPAMINE HCL/D5W 250 ML 18.29 MG IV (18:36)
[2024-07-28 18:40] LABS: Anion Gap 20.4 mEq/L (5-15); Potassium 6.4 mmoL/L (3.5-5.1)
[2024-07-28 18:44] LABS: Troponin I 0.01 ng/ml (0.00-0.034)
--- NOTE | 2024-07-28 18:44 | PC.NURSE ---
1807 pt became extremely bradycardic at 24BPM, pt A&OX4, anxious, dizzy and has impending doom. bedside on the phone with Dr. Aly. pt began shaking rapidly and was possibly shocked by the lifevest. pt was given meds per the SEP. pt temporarily paced throughout medication administration at 60BPM, pt is NOT paced at this time. pt is currently maintaining a stable HR on the dopamine drip.
[2024-07-28 18:53] LABS: Glucose 780 mg/dl (74-100)
[2024-07-28 18:56] LABS: Thyroid Stimulating Hormone 2.09 uIU/mL (0.465-4.68)
[2024-07-28 19:22] LABS: Acetone, Serum (Rapid) None Detected (None Detect)
[2024-07-28 19:27] LABS: T4 (Thyroxine) 5.7 ug/dl (5.53-11.0)
[2024-07-28 19:41] LABS: Microscopic, Urine URINE MICROSCOPIC (MICROSCOPIC)
[2024-07-28 19:55] LABS: Appearance,Urine CLEAR (Clear); Bilirubin,Urine Negative (Negative); Blood, Urine TRACE-I (Negative); Glucose,Urine (UA) 3+ (Negative); Ketones,Urine Negative (Negative); Leukocyte Esterase,Urine Negative (Negative); Nitrate,Urine Negative (Negative); Protein,Urine Negative (Negative); Specific Gravity, Urine <= 1.005 (1.005-1.030); Urobilinogen,Urine 0.2 EU/dl (0.2)
[2024-07-28 20:04] LABS: Hemoglobin A1C > 14.0 % (4.0-6.0)
[2024-07-28] MEDS: INSULIN REGULAR, HUMAN 100 UNIT in 0.9 % SODIUM CHLORIDE 100 ML 9.85 UNIT IV (20:12)
[2024-07-28 20:21] LABS: Color,Urine Straw (Yellow)
[2024-07-28 20:23] LABS: Bacteria,Urine Trace /lpf; RBC,Urine Occasional #/hpf (0-3); WBC,Urine Occasional #/hpf (0-3)
[2024-07-28] MEDS: ONDANSETRON 4MG/2ML VIAL 4 MG IV (21:17)
[2024-07-28 22:10] LABS: Reflex Lactic Add Lactic Reflex
[2024-07-28 22:33] LABS: Chloride 96 mmol/L (98-107)
[2024-07-28 22:34] LABS: Potassium 4.9 mmoL/L (3.5-5.1); Sodium 129 mmol/L (136-145)
[2024-07-28 22:37] LABS: Anion Gap 15.9 mEq/L (5-15); Blood Urea Nitrogen 44 mg/dl (9-20); Calcium 10.5 mg/dl (8.4-10.2); Carbon Dioxide 22 mmol/L (22.0-30.0); Creatinine Clearance Estimated 41 mL/min (50-200); Estimated Glomerular Filt Rate 34 ml/min (>60); GFR (African American) 41 ML/MIN (>60)
[2024-07-28 22:38] LABS: Glucose 612 mg/dl (74-100)
[2024-07-28 22:49] LABS: Troponin I 0.07 ng/ml (0.00-0.034)
--- NOTE | 2024-07-29 00:30 | PC.NURSE ---
EMS here to transport patient to the [facility]. IV's infusing without difficulty. Pt awake and slert
[2024-07-29 00:44] VITALS: BP 144/75; PULSE 87; RESP 18; TEMP 37.1; O2SAT 97
--- NOTE | 2024-07-29 01:01 | PC.NURSE ---
urinary catheter drained before transport. output = 1500 ml
--- NOTE | 2024-08-01 11:02 | PC.NURSE ---
BLOOD CULTURE FAXED TO [place] [phone]
== END 2024-07-29 01:02 | disposition short-term general hospital (02) ==
PROVIDERS: Emergency Provider Emergency Medicine; PCP Family Medicine
DX: I50.9 Heart failure, unspecified (principal); I21.4 Non-ST elevation (NSTEMI) myocardial infarction; E11.00 Type 2 diabetes mellitus with hyperosmolarity without nonketotic hyperglycemic-hyperosmolar coma (NKHHC); E87.5 Hyperkalemia; R00.1 Bradycardia, unspecified; I49.9 Cardiac arrhythmia, unspecified; R42 Dizziness and giddiness; R00.2 Palpitations
CPT/HCPCS: 51702; 71045; 80048; 80053; 80061; 81001; 82009; 82803; 83036; 83690; 83735; 83880; 84436; 84443; 84484; 85025; 85610; 85730; 87040; 87077; 87186; 93005; 96374; 96375; 99291; J0171; J0461; J1265; J2405

== ENCOUNTER 2024-08-12 17:28 | Emergency (ER) | payer MEDICARE, OTHER, SELFPAY ==
--- NOTE | 2024-08-12 17:25 | ECG_ITS ---
APPROVED REPORT Exam: Resting ECG HR:67 bpm ECG Measurements Heart Rate 67 AXES QRSd 141 QRS 43 QT 418 T 183 QTc 434 Conclusion ATRIAL FIBRILLATION LEFT BUNDLE BRANCH BLOCK [120+ ms QRS DURATION, 80+ ms Q/S IN V1/V2, 85+ ms R IN I/aVL/V5/V6] Electronically signed by : STEVE CADENA, 08/12/2024 23:40:26
--- NOTE | 2024-08-12 17:29 | PC.NURSE ---
PT PLACED IN C-COLLAR
--- NOTE | 2024-08-12 17:30 | ED_ITS ---
<Statement entered by Cinthia Nicolas DO - 08/12/24 20:32> I was consulted by the MIGNON, and we discussed the complexity of the problems being addressed. I approved the treatment and management plan for this patient's care in the emergency department, thus performing a substantive portion of the medical decision making. Patient arrives critically ill with syncope, bradycardia, facial injury. Labs concerning for hyperkalemia, for which calcium gluconate, insulin, fluids given to stabilize. He was only given 500 cc of fluids given history of heart failure. CT scans concerning for small subdural, and the patient is on anticoagulation. He also has open facial fractures. Given polytrauma, high risk syncope, bradycardia, hyperkalemia it is felt the patient is appropriate for transfer to higher level of care. He was transferred once medically stabilized with no recurrence of syncope here. Cinthia Nicolas DO Discharge Plan Disposition Patient Disposition: Xfer Short-Term Hosp Condition: Critical Prescriptions Prescriptions: No Action oxybutynin chloride 10 mg tablet extended release 24hr PO Stiolto Respimat 2.5-2.5 mcg/actuation mist 2 puff inhalation DAILY Qty: 4 12RF torsemide 10 mg tablet 30 mg PO QAM tamsulosin 0.4 mg capsule 0.4 mg PO DAILY rosuvastatin 20 mg tablet 20 mg PO DAILY Qty: 90 3RF Xarelto 15 mg tablet 15 mg PO QPMWITHMEAL Qty: 60 0RF Jardiance 10 mg tablet 10 mg PO DAILY Qty: 90 0RF albuterol sulfate 90 mcg/actuation HFA aerosol inhaler 2 puff inhalation Q6H PRN (Reason: shortness of breath or wheezing) Qty: 8.5 12RF gabapentin 300 mg capsule See Rx Instructions .ROUTE .COMPLEX Qty: 60 3RF Dose Instruction: TAKE 1 CAPSULE BY MOUTH 2 TIMES A DAY FOR PAIN Rx Instructions: TAKE 1 CAPSULE BY MOUTH 2 TIMES A DAY FOR PAIN gemfibrozil 600 mg tablet 600 mg PO BID Qty: 90 1RF Humulin 70/30 U-100 KwikPen 100 unit/mL (70-30) insulin pen 50 unit SQ BID Qty: 15 3RF (DME) pen needle, diabetic [BD Jayne 2nd Gen Pen Needle] 32 gauge x 5/32 needle See Rx Instructions .ROUTE .MEDSUPPLY Qty: 1200 0RF Rx Instructions: As directed irbesartan 75 mg tablet 37.5 mg PO DAILY 30 Days Qty: 90 0RF spironolactone 25 mg tablet 25 mg PO DAILY Qty: 90 0RF finasteride 5 mg tablet 5 mg PO HS Qty: 90 0RF pantoprazole 40 mg tablet,delayed release (DR/EC) 40 mg PO DAILY Qty: 90 1RF nystatin 100,000 unit/gram cream 1 applic topical TID Qty: 60 1RF rosuvastatin 40 mg tablet 40 mg PO DAILY ferrous gluconate 324 mg (38 mg iron) tablet 324 mg PO DAILY hydrocodone-acetaminophen 5-325 mg tablet 1 tab PO DAILY Qty: 30 0RF Referrals Follow up/Referrals: Andres Valencia MD [Primary Care Provider] - See instructions Activity Restrictions/Add. Instructions Additional Instructions/Restrictions: To the [facility] emergency department care of Dr. Clayton Mayer Clinical Impressions Clinical Impression: Subdural hemorrhage, Symptomatic bradycardia, Hyperkalemia Open fracture nasal bone Qualifiers: Encounter type: initial encounter Qualified Code(s): S02.2XXB - Fracture of nasal bones, initial encounter for open fracture Stand Alone Forms Stand Alone Forms: Transfer Record - ED Print Language Print Language: [place] Discharge ED Provider: Cinthia Nicolas General Adult HPI <DEBORA Nava - Last Filed: 08/12/24 19:38> General Chief complaint: Fall Stated complaint: fall/head injury Time Seen by Provider: 08/12/24 17:30 History of Present Illness HPI narrative: Patient presents for evaluation after syncopal event. Patient states that he got up to go to the bathroom to urinate which she was able to do however he felt extremely lightheaded subsequently syncopized. He is not sure what happened after but woke up on the floor next to his bed. He suffered injury across the bridge of his nose but denies neck pain headache back pain chest pain shortness of breath fever chills hemoptysis hematochezia melena nausea vomit diarrhea. More significantly patient was seen in our ER on 07/28/2024 ultimately transferred to the [facility] location for a junctional bradycardia of 36 with a QRS 142 QTc of 425 and repetitive episodes of bradycardia asystole. Patient has a past medical history of hypertension hyperlipidemia poorly controlled diabetes coronary artery disease status post coronary artery bypass graft, cardiomyopathy with a LifeVest that was in place that has been switched to a new device that have been familiar with, CKD, COPD on home oxygen. I have noted the visit in July patient was also in DKA and hyperkalemic at 6.4. Related Data Home Medications ?Medication ?Instructions ?Recorded ?Confirmed tamsulosin 0.4 mg capsule 0.4 mg PO DAILY 11/22/23 07/19/24 ferrous gluconate 324 mg (38 mg 324 mg PO DAILY 03/31/24 07/19/24 iron) tablet rosuvastatin 40 mg tablet 40 mg PO DAILY 03/31/24 07/19/24 oxybutynin chloride 10 mg mg PO 05/28/24 07/19/24 tablet,extended release 24 hr torsemide 10 mg tablet 30 mg PO QAM 07/19/24 Previous Rx's ?Medication ?Instructions ?Recorded tiotropium 2.5 mcg-olodaterol 2.5 2 puff inhalation DAILY Breathing 11/21/23 mcg/actuation mist for inhalation problems #4 grams (Stiolto Respimat) hydrocodone 5 mg-acetaminophen 325 1 tab PO DAILY #30 tabs 03/21/24 mg tablet rosuvastatin 20 mg tablet 20 mg PO DAILY #90 tabs 05/10/24 rivaroxaban 15 mg tablet (Xarelto) 15 mg PO QPMWITHMEAL #60 tabs 05/14/24 empagliflozin 10 mg tablet 10 mg PO DAILY #90 tabs 05/23/24 (Jardiance) albuterol sulfate 90 mcg/actuation 2 puff inhalation Q6H PRN 06/25/24 aerosol inhaler shortness of breath or wheezing #8.5 grams gabapentin 300 mg capsule See Rx Instructions .Route 06/25/24 .COMPLEX #60 caps gemfibrozil 600 mg tablet 600 mg PO BID #90 tabs 06/25/24 insulin NPH-regular 70-30 U-100 50 unit (0.5 mL) SQ BID #15 mL 07/05/24 insulin 100 unit/mL subcutaneous pen (Humulin 70/30 U-100 KwikPen) irbesartan 75 mg tablet 37.5 mg (1/2 x 75 mg) PO DAILY 30 07/10/24 days #90 tabs pen needle, diabetic 32 gauge x #1,200 ea 07/10/24 (BD Jayne 2nd Gen Pen Needle) spironolactone 25 mg tablet 25 mg PO DAILY #90 tabs 07/10/24 finasteride 5 mg tablet 5 mg PO HS #90 tabs 07/16/24 nystatin 100,000 unit/gram topical 1 applic topical TID #60 grams 07/23/24 cream pantoprazole 40 mg tablet,delayed 40 mg PO DAILY #90 tabs 07/23/24 release Allergies Allergy/AdvReac Type Severity Reaction Status Date / Time oxycodone Allergy Intermediate I-RASH Verified 07/19/24 14:02 Sulfa (Sulfonamide Allergy Unknown Unknown Verified 07/19/24 14:02 Antibiotics) allergy reaction aspirin AdvReac Intermediate Other Verified 07/19/24 14:02 [facility] <DEBORA Nava - Last Filed: 08/12/24 19:38> [facility] Disclaimer: The information contained in this section may have been updated after the patient was seen, as this information can be updated by other users. Medical History Chronic kidney disease Bradycardia HLD (hyperlipidemia) Atrial fibrillation Atypical angina HTN (hypertension) Morbid obesity with BMI of 40.0-44.9, adult CKD stage 3a, GFR 45-59 ml/min Iron deficiency anemia Multiple pulmonary nodules Chronic hypoxemic respiratory failure COPD (chronic obstructive pulmonary disease) Pulmonary emphysema Stopped smoking with greater than 30 pack year history Lung nodule Dyspnea on exertion Sleep apnea Diabetes mellitus Abnormal EKG JUAN FRANCISCO (cerebral atherosclerosis) Edema Pre-op evaluation Claudication Paroxysmal atrial fibrillation HHD (hypertensive heart disease) Surgical History History of prostate surgery History of heart artery stent Family History Other Anemia Coronary artery disease Diabetes Heart attack Hyperlipidemia Hypertension Stroke Social History Smoking Status: Former smoker tobacco type: cigarettes packs per day: 2 second hand exposure: No alcohol intake: never substance use type: denies use current occupational status: retired Travel in the last 8 weeks: None household members: spouse housing: house current occupational exposures/hazards: No caffeine: Yes Have you lived/traveled outside [place] in past 30 days?: No Contact w/someone who lives/traveled outside US past 30 days?: No Exposure to someone with infectious disease in past 14 days?: No Do you have a fever (greater than 100.4 F or 38 C)?: No Have you tested positive for COVID-19: No Exposed to someone with COVID-19 in past 14 days?: No Do you have a sore throat?: No Do you have a cough?: No Do you have any weakness?: No Do you have any diarrhea?: No Are you experiencing any unusual bleeding?: No Do you have any muscle aches/pain?: No Do you have any abdominal pain?: No Are you experiencing loss of taste or smell?: No Other Medical History Have you received the Flu Vaccine for this season: No Have you received the Pneumonia Vaccine: Yes <DEBORA Nava - Last Filed: 08/12/24 19:38> ROS Obtained: Yes Systems reviewed as appropriate & no additional complaints except as documented Physical Exam <DEBORA Nava - Last Filed: 08/12/24 19:38> General General appearance: alert and in no apparent distress Respiratory Respiratory exam: Present normal lung sounds bilaterally Cardiovascular Cardiovascular exam: Present bradycardia and irregular rhythm Neurological Exam Neurological exam: Present alert, oriented X3 and CN II-XII intact Medical Decision Making <DEBORA Nava - Last Filed: 08/12/24 19:38> Medical Records Medical records reviewed: Yes I reviewed the patient's medical records. Screening: Per USPSTF and CDC recommendations, given the prevalence of disease in our region, it is our hospital?s policy to screen for HIV and viral Hepatitis for all patients aged 18 and over and those with ongoing risk factors. Bill Inquiry Pt receiving controlled substance: No Vital Signs: 08/12/24 17:31 08/12/24 18:00 08/12/24 20:16 Temperature 98.4 F 98.1 F Temperature Source Oral Oral Pulse Rate 61 60 Pulse Rate [Right Radial] 70 Respiratory Rate 20 15 20 Blood Pressure 128/54 L 152/59 H Blood Pressure [Right Arm] 129/67 Blood Pressure Mean [Right Arm] 87 02 Sat by Pulse Oximetry 94 L 95 Oxygen Delivery Method Room Air Room Air Room Air Lab Data Lab results reviewed: Yes I reviewed the patient's lab results. Lab Results 08/12/24 17:50: WBC 8.7, RBC 4.05 L, Hgb 9.3 L, Hct 31.4 L, MCV 77.5 L, MCH 23.0 L, MCHC 29.6 L, RDW 16.7, Plt Count 318, MPV 9.5, Neut % (Auto) 74.3, Lymph % (Auto) 16.3, Summit % (Auto) 6.0, Eos % (Auto) 2.4, Baso % (Auto) 0.5, Neut # (Auto) 6.5, Lymph # (Auto) 1.4, Summit # (Auto) 0.5, Eos # (Auto) 0.2, Baso # (Auto) 0.0, PT 12.2, INR 1.10, APTT 27.4, Sodium 132 L, Potassium 6.4 H*, Chloride 99, Carbon Dioxide 26, Anion Gap 13.4, BUN 36 H, Creatinine 1.90 H, Estimated Creat Clear 39, Estimated GFR 34 L, Est GFR ( Amer) 41 L, G lucose 337 H, Calcium 9.1, Magnesium 2.1, Total Bilirubin 0.5, AST 29, ALT 18, Alkaline Phosphatase 104, Troponin I < 0.01, Total Protein 6.6, Albumin 3.9, Globulin 2.7, Albumin/Globulin Ratio 1.4 08/12/24 18:04: SARS-CoV-2 (PCR) Not detected, Influenza A Untype (PCR) Not detected, Influenza Type B (PCR) Not detected 08/12/24 17:50 08/12/24 17:50 Orders (Tests/Meds): ED MEDICATIONS Generic Name Dose Route Start Last Admin Trade Name Freq PRN Reason Stop Dose Admin Sodium Chloride 10 ml 08/12/24 18:25 08/12/24 18:27 Sodium Chloride 0.9% 10ml Syr (Rad Only) IV 09/11/24 18:24 10 ml NEEDED PRN Administration Maintain IV Site Discontinued Medications Generic Name Dose Route Start Last Admin Trade Name Freq PRN Reason Stop Dose Admin Acetaminophen 1,000 mg 08/12/24 17:30 08/12/24 17:56 Acetaminophen 1,000mg/100ml Vial IV 08/12/24 17:31 1,000 mg ONCE ONE Administration Famotidine 40 mg 08/12/24 19:05 08/12/24 19:21 Famotidine 20mg Tablet PO 08/12/24 19:06 40 mg ONCE ONE Administration Sodium Chloride 1,000 mls @ 999 mls/hr 08/12/24 17:30 08/12/24 17:56 Sod Chlor 0.9% 1000ml Bag IV 08/12/24 18:30 999 mls/hr .Q1H1M ONE Administration Calcium Gluconate/Sodium Chloride 2 gm in 100 mls @ 50 mls/hr 08/12/24 18:10 08/12/24 18:51 Calcium Gluconate 2,000mg/100ml Nacl Premix IV 08/12/24 20:09 50 mls/hr ONCE ONE Administration Insulin Human Regular 9 unit 08/12/24 18:12 08/12/24 18:51 Insulin Human Regular 100 Units/Ml 10ml Vial 0.1 unit/kg (9 unit) 08/12/24 18:13 9 unit IV Administration ONCE ONE Iopamidol 160 ml 08/12/24 18:25 08/12/24 18:26 Iopamidol-370 (76%);100ml Bottle IV 08/12/24 18:26 160 ml ONCE ONE Administration Ondansetron HCl 4 mg 08/12/24 17:30 08/12/24 17:56 Ondansetron 4mg/2ml Vial IV 08/12/24 17:31 4 mg ONCE ONE Administration Sodium Chloride 500 ml 08/12/24 18:12 08/12/24 18:50 Sodium Chloride 0.9% 500ml Bag IV 08/12/24 18:13 500 ml ONCE ONE Administration Sodium Chloride 80 ml 08/12/24 18:25 08/12/24 18:26 0.9 % Sodium Chloride 50 Ml Vial IV 08/12/24 18:26 80 ml ONCE ONE Administration ORDERS Category Date Time Status CT angio abdomen pelvis Stat Cat Scan 08/12/24 17:[address] angio chest - dissection Stat Cat Scan 08/12/24 17:[address] angio head Stat Cat Scan 08/12/24 17:[address] angio neck Stat Cat Scan 08/12/24 17:[address] bony pelvis Stat Cat Scan 08/12/24 17:[address] cervical spine wo con Stat Cat Scan 08/12/24 17:[address] facial bones wo con Stat Cat Scan 08/12/24 17:[address] head/brain wo con Stat Cat Scan 08/12/24 17:[address] lumbar spine wo con Stat Cat Scan 08/12/24 17:[address] thoracic spine wo con Stat Cat Scan 08/12/24 17:32 Completed Activated Partial Thrombo Time Stat Lab 08/12/24 17:50 Completed CBC w/Auto Diff [Complete Blood Count Auto Diff] Stat Lab 08/12/24 17:50 Completed CMP [Comprehensive Metabolic Panel] Stat Lab 08/12/24 17:50 Completed Magnesium Stat Lab 08/12/24 17:50 Completed Prothrombin Time INR Stat Lab 08/12/24 17:50 Completed Rapid PCR Covid and Flu A/B Stat Lab 08/12/24 18:04 Completed Trop I [Troponin I] Stat Lab 08/12/24 17:50 Completed Troponin I Q3H Lab 08/12/24 20:45 Ordered Troponin I Q3H Lab 08/12/24 23:45 Ordered HEART Score History (anamnesis): Moderately suspicious ECG: Non-specific disturbance Age: >65 years Risk factors: Atherosclerosis history Troponin: </= normal limit HEART Score: 6 Medical Decision Narrative: In summary patient is a 84-year-old male who presents to the emergency department for evaluation of syncope and collapse. Patient is is initially normotensive at 129/67 with atrial fibrillation noted on the monitor at a bradycardic rate ranging from the high 40s to low 50s at the time of my exam breathing 20 times a minute satting at 94% currently on room air upon arrival, and afebrile at 98.4. Physical exam is remarkable for a laceration across the bridge of the nose but no palpable bony deformities, midface is stable, there is no C-spine tenderness no other visible injuries currently although exam is limited due to to a c-collar in place currently, Glascow coma score is 15 and patient is awake alert and oriented to person place and circumstance currently and cranial nerves II through XII are intact respiratory exam. No other bony deformity noted on exam no other abrasions contusions lacerations noted currently.. Differential diagnosis includes cardiogenic syncope versus vasovagal syncope versus ACS etc. Initial workup will be conducted with hematologic labs CT trauma scans urinalysis.. Initial interventions include or depending on initial lab work thus deferred for now. Initial workup reviewed by me and his white count is 8.7 hemoglobin and hematocrit are 9.3 and 31.4 respectively with no shift on differential, INR is 1.10, CMP significant for sodium of 132 potassium is 6.4 CO2 of 26 and anion gap of 13.4 BUN of 36 creatinine 1.9 GFR of 39 glucose is 337 today calcium 9.1 magnesium 2.1 and the remainder of his chemistries are normal and nonactionable. His initial troponin is less than 0.01 his COVID and flu swabs are negative. My informal interpretation of his CT imaging shows shows multiple nasal fractures which given the laceration makes it an open fracture and a right parafalcine subdural hemorrhage and no other injuries prior to radiology read. Given his hyperkalemia we have ordered potassium lowering strategies stat including calcium and insulin. Initially had an interactive discussion with Dr. Aly regarding patient management and pending his PIERCE he would have been admitted here for pacemaker defibrillator placement tomorrow however given these new findings I had interact discussion with [facility] Dr. Clayton Mayer regarding patient management and he has been graciously accepted to the [facility] emergency department for further evaluation and care. <Cinthia Nicolas, DO - Last Filed: 08/12/24 20:33> Vital Signs: 08/12/24 17:31 08/12/24 18:00 08/12/24 20:16 Temperature 98.4 F 98.1 F Temperature Source Oral Oral Pulse Rate 61 60 Pulse Rate [Right Radial] 70 Respiratory Rate 20 15 20 Blood Pressure 128/54 L 152/59 H Blood Pressure [Right Arm] 129/67 Blood Pressure Mean [Right Arm] 87 02 Sat by Pulse Oximetry 94 L 95 Oxygen Delivery Method Room Air Room Air Room Air Lab Data Lab Results 08/12/24 17:50: WBC 8.7, RBC 4.05 L, Hgb 9.3 L, Hct 31.4 L, MCV 77.5 L, MCH 23.0 L, MCHC 29.6 L, RDW 16.7, Plt Count 318, MPV 9.5, Neut % (Auto) 74.3, Lymph % (Auto) 16.3, Summit % (Auto) 6.0, Eos % (Auto) 2.4, Baso % (Auto) 0.5, Neut # (Auto) 6.5, Lymph # (Auto) 1.4, [place] # (Auto) 0.5, Eos # (Auto) 0.2, Baso # (Auto) 0.0, PT 12.2, INR 1.10, APTT 27.4, Sodium 132 L, Potassium 6.4 H*, Chloride 99, Carbon Dioxide 26, Anion Gap 13.4, BUN 36 H, Creatinine 1.90 H, Estimated Creat Clear 39, Estimated GFR 34 L, Est GFR ( Amer) 41 L, G lucose 337 H, Calcium 9.1, Magnesium 2.1, Total Bilirubin 0.5, AST 29, ALT 18, Alkaline Phosphatase 104, Troponin I < 0.01, Total Protein 6.6, Albumin 3.9, Globulin 2.7, Albumin/Globulin Ratio 1.4 08/12/24 18:04: SARS-CoV-2 (PCR) Not detected, Influenza A Untype (PCR) Not detected, Influenza Type B (PCR) Not detected Orders (Tests/Meds): ED MEDICATIONS Generic Name Dose Route Start Last Admin Trade Name Freq PRN Reason Stop Dose Admin Sodium Chloride 10 ml 08/12/24 18:25 08/12/24 18:27 Sodium Chloride 0.9% 10ml Syr (Rad Only) IV 09/11/24 18:24 10 ml NEEDED PRN Administration Maintain IV Site Discontinued Medications Generic Name Dose Route Start Last Admin Trade Name Freq PRN Reason Stop Dose Admin Acetaminophen 1,000 mg 08/12/24 17:30 08/12/24 17:56 Acetaminophen 1,000mg/100ml Vial IV 08/12/24 17:31 1,000 mg ONCE ONE Administration Famotidine 40 mg 08/12/24 19:05 08/12/24 19:21 Famotidine 20mg Tablet PO 08/12/24 19:06 40 mg ONCE ONE Administration Sodium Chloride 1,000 mls @ 999 mls/hr 08/12/24 17:30 08/12/24 17:56 Sod Chlor 0.9% 1000ml Bag IV 08/12/24 18:30 999 mls/hr .Q1H1M ONE Administration Calcium Gluconate/Sodium Chloride 2 gm in 100 mls @ 50 mls/hr 08/12/24 18:10 08/12/24 18:51 Calcium Gluconate 2,000mg/100ml Nacl Premix IV 08/12/24 20:09 50 mls/hr ONCE ONE Administration Insulin Human Regular 9 unit 08/12/24 18:12 08/12/24 18:51 Insulin Human Regular 100 Units/Ml 10ml Vial 0.1 unit/kg (9 unit) 08/12/24 18:13 9 unit IV Administration ONCE ONE Iopamidol 160 ml 08/12/24 18:25 08/12/24 18:26 Iopamidol-370 (76%);100ml Bottle IV 08/12/24 18:26 160 ml ONCE ONE Administration Ondansetron HCl 4 mg 08/12/24 17:30 08/12/24 17:56 Ondansetron 4mg/2ml Vial IV 08/12/24 17:31 4 mg ONCE ONE Administration Sodium Chloride 500 ml 08/12/24 18:12 08/12/24 18:50 Sodium Chloride 0.9% 500ml Bag IV 08/12/24 18:13 500 ml ONCE ONE Administration Sodium Chloride 80 ml 08/12/24 18:25 08/12/24 18:26 0.9 % Sodium Chloride 50 Ml Vial IV 08/12/24 18:26 80 ml ONCE ONE Administration ORDERS Category Date Time Status CT angio abdomen pelvis Stat Cat Scan 08/12/24 17:[address] angio chest - dissection Stat Cat Scan 08/12/24 17:[address] angio head Stat Cat Scan 08/12/24 17:[address] angio neck Stat Cat Scan 08/12/24 17:[address] bony pelvis Stat Cat Scan 08/12/24 17:[address] cervical spine wo con Stat Cat Scan 08/12/24 17:[address] facial bones wo con Stat Cat Scan 08/12/24 17:[address] head/brain wo con Stat Cat Scan 08/12/24 17:[address] lumbar spine wo con Stat Cat Scan 08/12/24 17:[address] thoracic spine wo con Stat Cat Scan 08/12/24 17:32 Completed Activated Partial Thrombo Time Stat Lab 08/12/24 17:50 Completed CBC w/Auto Diff [Complete Blood Count Auto Diff] Stat Lab 08/12/24 17:50 Completed CMP [Comprehensive Metabolic Panel] Stat Lab 08/12/24 17:50 Completed Magnesium Stat Lab 08/12/24 17:50 Completed Prothrombin Time INR Stat Lab 08/12/24 17:50 Completed Rapid PCR Covid and Flu A/B Stat Lab 08/12/24 18:04 Completed Trop I [Troponin I] Stat Lab 08/12/24 17:50 Completed Troponin I Q3H Lab 08/12/24 20:45 Ordered Troponin I Q3H Lab 08/12/24 23:45 Ordered ECG Data Tracing #1: I reviewed this ECG and interpreted as documented below: Atrial fibrillation with ventricular rate of 67 bpm. Left bundle branch block. No acute STEMI based on Sgarbossa criteria. ECG initial impression date: 08/12/24 ECG initial impression time: 17:35 HEART Score HEART Score: 6 Critical Care <DEBORA Nava - Last Filed: 08/12/24 19:38> Critical Care Time Critical Care Time: Yes Attestation: On 08/12/24, the high probability of a clinically significant, sudden or life threatening deterioration of the following system: Cardiac, neurologic; required my full and direct attention, intervention and personal management. The time I documented below is in addition to time spent performing reported procedures but includes the following listed in this critical care notation. Total Time Total Critical Care Time: 30 <Cinthia Nicolas DO - Last Filed: 08/12/24 20:33> Total Time Total Critical Care Time: 45
[2024-08-12 17:31] VITALS: BP 129/67; PULSE 70; RESP 20; TEMP 36.9; O2SAT 94; BMI 32.1
--- NOTE | 2024-08-12 17:32 | CT_ITS ---
PROCEDURE INFORMATION: Exam: CT Thoracic Spine Without Contrast Exam date and time: 08/12/2024 6:28 PM Age: 84 years old Clinical indication: Injury or trauma; Fall; Blunt trauma (contusions or hematomas); Additional info: Trauma, critical injury suspected TECHNIQUE: Imaging protocol: Computed tomography of the thoracic spine without contrast. Radiation optimization: All CT scans at this facility use at least one of these dose optimization techniques: automated exposure control; mA and/or kV adjustment per patient size (includes targeted exams where dose is matched to clinical indication); or iterative reconstruction. COMPARISON: MR THORACIC SPINE WO CON 07/01/2022 7:35 AM FINDINGS: Bones/joints: The thoracic spine demonstrates moderate discogenic and spondylitic degenerative changes at multiple levels. This is predominantly manifest by endplate discogenic degenerative changes and marginal osteophytes. Severe compressive changes involving T12 with kyphoplasty are again noted. Mild posterosuperior retropulsion of the superior vertebral body is stable. This produces moderate central canal stenosis. Otherwise, no significant central canal or neural foraminal stenosis. Minor vacuum disc phenomenon is present at T7-8 level. No focal disc protrusion. There is no evidence of acute fracture. Soft tissues: No focal soft tissue hematomas. No significant soft tissue edema. Lungs: There is a pulmonary parenchymal calcification consistent with remote granulomatous organism exposure. Thyroid: Ovoid hypodensity measuring approximately 2 cm in the mildly prominent right thyroid lobe is incompletely visualized. Recommend additional evaluation when the patient's condition permits. Other findings: Findings within the lower chest and upper abdomen are described in the associated CT of the chest , and abdomen and pelvis report from the same date and time. Please reference that report for additional information. IMPRESSION: 1. No acute posttraumatic abnormality. 2. Moderate discogenic and spondylitic degenerative changes of the thoracic spine. 3. Stable severe compressive changes involving T12 with kyphoplasty and mild posterosuperior retropulsion resulting in moderate central canal stenosis.
--- NOTE | 2024-08-12 17:32 | CT_ITS ---
PROCEDURE INFORMATION: Exam: CT Maxillofacial Without Contrast Exam date and time: 08/12/2024 6:26 PM Age: 84 years old Clinical indication: Injury or trauma; Fall; Blunt trauma (contusions or hematomas); Forehead; Additional info: Trauma, critical injury suspected TECHNIQUE: Imaging protocol: Computed tomography of the face without contrast. Radiation optimization: All CT scans at this facility use at least one of these dose optimization techniques: automated exposure control; mA and/or kV adjustment per patient size (includes targeted exams where dose is matched to clinical indication); or iterative reconstruction. COMPARISON: 1. CT FACIAL BONES WO CON 11/27/2021 6:[address] HEAD/BRAIN WO CON 11/27/2021 6:[address] HEAD/BRAIN WO CON 10/11/2020 8:49 PM FINDINGS: Paranasal sinuses: No air-fluid levels. Orbital cavities: Orbits are normal. Globes are unremarkable. Bones: There are multiple minimally displaced nasal bone fractures. There is diffuse osseous demineralization. Soft tissues: Unremarkable. IMPRESSION: There are multiple minimally displaced nasal bone fractures.
--- NOTE | 2024-08-12 17:32 | CT_ITS ---
PROCEDURE INFORMATION: Exam: CTA Chest With Contrast Exam date and time: 08/12/2024 6:41 PM Age: 84 years old Clinical indication: Injury or trauma; Fall; Blunt trauma (contusions or hematomas); Additional info: Trauma, critical injury suspected TECHNIQUE: Imaging protocol: Computed tomographic angiography of the chest with contrast. Exam focused on the arteries. 3D rendering (Not supervised by radiologist): MIP and/or 3D reconstructed images were created by the technologist. Radiation optimization: All CT scans at this facility use at least one of these dose optimization techniques: automated exposure control; mA and/or kV adjustment per patient size (includes targeted exams where dose is matched to clinical indication); or iterative reconstruction. Contrast material: ISO 370; Contrast volume: 80 ml; Contrast route: INTRAVENOUS (IV); COMPARISON: CT ANGIO CHEST PE PROTOCOL 09/16/2021 4:21 PM FINDINGS: Pulmonary arteries: No pulmonary emboli. Aorta: The aorta demonstrates moderate atherosclerotic calcification. There is no evidence of aortic dissection, leak, rupture, or other acute vascular pathology. Thyroid: Hyper combo bili there is mild prominence to the right thyroid lobe, incompletely visualized.The heart is borderline enlarged. Lungs: Mild bibasilar streaky opacities suggest atelectasis or parenchymal scarring. There is mild emphysema. Pleural spaces: There are no pleural effusions. No pneumothorax. Heart: There is no evidence of pericardial fluid collections. Coronary arteries: There is moderate atherosclerotic calcification of the coronary arteries. Lymph nodes: There is no evidence of pathologic adenopathy. Calcified lymph nodes in the left hilar and mediastinal regions indicate prior granulomatous disease. Bones/joints: The thoracic spine demonstrates moderate degenerative changes at multiple levels. Sternal suture wires are in place suggesting prior median sternotomy and postoperative changes are present involving the mediastinum. There is minor concavity to the superior endplate of T5 which is stable from prior exam. There is no evidence of acute fracture. There is a remote fracture involving the left anterolateral 7th rib. Soft tissues: No significant soft tissue edema. No focal soft tissue hematomas. IMPRESSION: No acute posttraumatic abnormality.
--- NOTE | 2024-08-12 17:32 | CT_ITS ---
PROCEDURE INFORMATION: Exam: CT Cervical Spine Without Contrast Exam date and time: 08/12/2024 6:28 PM Age: 84 years old Clinical indication: Injury or trauma; Fall; Blunt trauma; Additional info: Trauma, critical injury suspected TECHNIQUE: Imaging protocol: Computed tomography of the cervical spine without contrast. Radiation optimization: All CT scans at this facility use at least one of these dose optimization techniques: automated exposure control; mA and/or kV adjustment per patient size (includes targeted exams where dose is matched to clinical indication); or iterative reconstruction. COMPARISON: 1. CT CERVICAL SPINE WO CON 11/27/2021 6:[address] THORACIC SPINE WO CON 08/12/2024 6:[address] FACIAL BONES WO CON 08/12/2024 6:26 PM FINDINGS: Bones: There is straightening of the normal spinal curvature. There is diffuse osseous demineralization. The cervical spine shows relatively preserved alignment of the vertebral bodies with no evidence of acute fractures or dislocations. However, age-related degenerative changes are observed, including mild disc space narrowing and osteophyte formation at multiple levels. These findings are consistent with age related degenerative disease. Lungs: Lung apices are normal. Soft tissues: Unremarkable. IMPRESSION: Multilevel degenerative change without acute injury identified.
--- NOTE | 2024-08-12 17:32 | CT_ITS ---
PROCEDURE INFORMATION: Exam: CTA Head With Contrast, Arteriography Exam date and time: 08/12/2024 6:37 PM Age: 84 years old Clinical indication: Injury or trauma; Fall; Blunt trauma; Head; Additional info: Trauma, critical injury suspected TECHNIQUE: Imaging protocol: Computed tomographic angiography of the head with contrast. Exam focused on the arteries. 3D rendering (Not supervised by radiologist): MIP and/or 3D reconstructed images were created by the technologist. Radiation optimization: All CT scans at this facility use at least one of these dose optimization techniques: automated exposure control; mA and/or kV adjustment per patient size (includes targeted exams where dose is matched to clinical indication); or iterative reconstruction. Contrast material: ISO 370; Contrast volume: 80 ml; Contrast route: INTRAVENOUS (IV); Other contrast: Oral; COMPARISON: 1. CT HEAD/BRAIN WO CON 08/12/2024 6:[address] HEAD/BRAIN WO CON 11/27/2021 6:[address] HEAD/BRAIN WO CON 10/11/2020 8:49 PM FINDINGS: ANTERIOR CIRCULATION: Right internal carotid artery: Intracranial segment is patent with no significant stenosis. No aneurysm. Right middle cerebral artery: No occlusion or significant stenosis. No aneurysm. Right anterior cerebral artery: No occlusion or significant stenosis. No aneurysm. Left internal carotid artery: Intracranial segment is patent with no significant stenosis. No aneurysm. Left middle cerebral artery: No occlusion or significant stenosis. No aneurysm. Left anterior cerebral artery: No occlusion or significant stenosis. No aneurysm. POSTERIOR CIRCULATION: Right vertebral artery: No occlusion or significant stenosis. No aneurysm. Left vertebral artery: No occlusion or significant stenosis. No aneurysm. Basilar artery: No occlusion or significant stenosis. No aneurysm. Right posterior cerebral artery: No occlusion or significant stenosis. No aneurysm. Left posterior cerebral artery: No occlusion or significant stenosis. No aneurysm. Brain: No definite mass, mass effect, or midline shift. Right parafalcine subdural hemorrhage is better visualized on the dedicated noncontrast CT. Cerebral ventricles: No ventriculomegaly. Bones/joints: Unremarkable. No acute fracture. Soft tissues: Unremarkable. IMPRESSION: No large vessel stenosis or occlusion.
--- NOTE | 2024-08-12 17:32 | CT_ITS ---
PROCEDURE INFORMATION: Exam: CT Lumbar Spine Without Contrast Exam date and time: 08/12/2024 6:28 PM Age: 84 years old Clinical indication: Injury or trauma; Fall; Blunt trauma (contusions or hematomas); Additional info: Trauma, critical injury suspected TECHNIQUE: Imaging protocol: Computed tomography of the lumbar spine without contrast. Radiation optimization: All CT scans at this facility use at least one of these dose optimization techniques: automated exposure control; mA and/or kV adjustment per patient size (includes targeted exams where dose is matched to clinical indication); or iterative reconstruction. COMPARISON: MR LUMBAR SPINE WO CON 01/16/2024 4:44 PM FINDINGS: Bones/joints: There is mild diffuse osteopenia. The lumbar spine demonstrates mild discogenic and spondylitic degenerative changes at multiple levels. This is predominantly manifest by endplate discogenic degenerative changes and marginal osteophytes as well as mild facet degenerative arthropathy. There is grade 1 anterior spondylolisthesis of L4 on L5. Alignment is otherwise intact. Findings within the lower thoracic spine are described in the associated CT of the thoracic spine report from the same date and time. Please reference that report for additional information. There is no evidence of acute fracture. No compression fractures. There are mild degenerative changes of the sacroiliac joints. Mild diffuse annular bulge at the L3-L4 level produces mild ventral effacement upon the thecal sac and mild central canal stenosis. There is minor bilateral inferior neural foraminal narrowing. Moderate diffuse annular bulge at the L4-L5 level produces moderate ventral effacement upon the thecal sac and moderate central canal stenosis. This is mildly accentuated by ligamentum flavum hypertrophy. There is ykbnimtb-mv-xuhtny bilateral neural foraminal narrowing at this level. Sxiu-da-zxgnvdvi diffuse annular bulge at the L5-S1 level produces mild ventral effacement upon the thecal sac and approximates the originating S1 nerve roots. There is fmbr-dd-agluklef bilateral neural foraminal narrowing. No large focal disc protrusion. Soft tissues: No large soft tissue hematoma. No significant soft tissue edema. IMPRESSION: No acute posttraumatic abnormality. Mild discogenic and spondylitic degenerative changes of the lumbar spine.
--- NOTE | 2024-08-12 17:32 | CT_ITS ---
PROCEDURE INFORMATION: Exam: CTA Abdomen and Pelvis With Contrast Exam date and time: 08/12/2024 6:41 PM Age: 84 years old Clinical indication: Injury or trauma; Fall; Blunt trauma; Lower abdominal or back area; Bilateral; Additional info: Trauma, critical injury suspected TECHNIQUE: Imaging protocol: Computed tomographic angiography of the abdomen and pelvis with contrast. Exam focused on the arteries. 3D rendering (Not supervised by radiologist): MIP and/or 3D reconstructed images were created by the technologist. Radiation optimization: All CT scans at this facility use at least one of these dose optimization techniques: automated exposure control; mA and/or kV adjustment per patient size (includes targeted exams where dose is matched to clinical indication); or iterative reconstruction. Contrast material: ISO 370; Contrast volume: 80 ml; Contrast route: INTRAVENOUS (IV); COMPARISON: CT BONY PELVIS 08/12/2024 6:33 PM FINDINGS: Aorta: The abdominal aorta and iliac arteries demonstrate moderate to severe atherosclerotic calcification. There is no evidence of an aortic aneurysm. Celiac trunk and mesenteric arteries: There is pmpp-xe-hitswawk stenosis involving the proximal celiac artery. No significant SMA stenosis. Renal arteries: No occlusion. There is mild stenosis involving the right proximal renal artery. No significant left renal artery stenosis. Right iliac arteries: No occlusion or significant stenosis. There is minor stenosis involving both common iliac arteries. A stent is present within the right external iliac artery which appears patent. Left iliac arteries: No occlusion or significant stenosis. Liver: There the liver is otherwise within range of normal. Gallbladder and biliary ducts: Several layering calcified gallstones are present. No gallbladder wall thickening or pericholecystic fluid. Pancreas: The pancreas is normal. Spleen: The spleen demonstrates punctate calcifications, consistent with remote granulomatous organism exposure. Adrenal glands: The adrenal glands are normal. Kidneys and ureters: There is a 13 mm superior cyst in the left kidney. The kidneys are otherwise within range of normal. Stomach and bowel: The stomach is normal. The duodenum is unremarkable. Lack of gastrointestinal contrast limits evaluation of bowel. Unopacified loops of small bowel within range of normal. There is mildly excessive colonic stool content. Appendix: A normal appendix is identified. Intraperitoneal space: No evidence of intraperitoneal free air. There is no evidence of free intraperitoneal or pelvic fluid. Lymph nodes: No enlarged lymph nodes. Urinary bladder: The bladder is normal. Reproductive: Punctate foci of increased density in the region of the prostate suggests post intervention changes. There are few minor calcifications in the prostate which appears small. Bones/joints: There are mild degenerative changes of the hip joints. There are mild degenerative changes of the symphyseal pubic joint. There is very slight anterior spondylolisthesis of L4 on L5. There is mild diffuse osteopenia. Kyphoplasty changes and yvkuebwd-ob-dylpwr compressive changes are present involving T12. There is mild posterosuperior retropulsion of the vertebral body, unchanged. Soft tissues: Postsurgical changes are present in the right inguinal region. There is mild fat stranding involving both anterolateral soft tissues of the mid abdomen which may reflect mild edema/contusion. Other findings: Findings within the lower chest are described in the associated CT of the chest report from the same date and time. Please reference that report for additional information. IMPRESSION: 1. No acute posttraumatic abnormality. 2. Mild hepatomegaly. 3. Cholelithiasis. 4. Mild constipation. 5. Mild fat stranding involving both anterolateral soft tissues of the mid abdomen which may reflect mild edema/contusion.
--- NOTE | 2024-08-12 17:32 | CT_ITS ---
PROCEDURE INFORMATION: Exam: CT Head Without Contrast Exam date and time: 08/12/2024 6:37 PM Age: 84 years old Clinical indication: Injury or trauma; Fall; Blunt trauma (contusions or hematomas); Additional info: Trauma, critical injury suspected TECHNIQUE: Imaging protocol: Computed tomography of the head without contrast. Radiation optimization: All CT scans at this facility use at least one of these dose optimization techniques: automated exposure control; mA and/or kV adjustment per patient size (includes targeted exams where dose is matched to clinical indication); or iterative reconstruction. COMPARISON: 1. CT ANGIO HEAD 08/12/2024 6:[address] HEAD/BRAIN WO CON 11/27/2021 6:[address] HEAD/BRAIN WO CON 10/11/2020 8:49 PM FINDINGS: Brain: There is moderate cerebral and cerebellar atrophy. There are scattered white matter disease which is likely chronic microvascular in etiology. Old right basal ganglia infarct. There is a tiny subdural hemorrhage in the right parafalcine region measuring 0.4 cm (image 50 series 3) without significant associated mass effect. Cerebral ventricles: No ventriculomegaly. Paranasal sinuses: Visualized sinuses are unremarkable. No fluid levels. There are scattered areas of sinus mucosal thickening. Mastoid air cells: Visualized mastoid air cells are well aerated. Bones: Unremarkable. No acute fracture. Soft tissues: Please see the dedicated interpretation of the face for findings in that region. IMPRESSION: There is a tiny subdural hemorrhage in the right parafalcine region measuring 0.4 cm (image 50 series 3) without significant associated mass effect.
--- NOTE | 2024-08-12 17:32 | CT_ITS ---
PROCEDURE INFORMATION: Exam: CT Pelvis Without Contrast, Skeleton Exam date and time: 08/12/2024 6:33 PM Age: 84 years old Clinical indication: Injury or trauma; Fall; Blunt trauma (contusions or hematomas); Bilateral; Abdomen, lower; Additional info: Trauma, critical injury suspected TECHNIQUE: Imaging protocol: Computed tomography of the pelvis without contrast. Exam focused on the skeleton. Radiation optimization: All CT scans at this facility use at least one of these dose optimization techniques: automated exposure control; mA and/or kV adjustment per patient size (includes targeted exams where dose is matched to clinical indication); or iterative reconstruction. COMPARISON: CT ABDOMEN PELVIS W CON 06/30/2022 11:51 AM FINDINGS: Intraperitoneal space: Findings within the lower abdomen and pelvis are described in the associated CT of the abdomen and pelvis report from the same date and time. Please reference that report for additional information. Vasculature: The visualized aorta and iliac arteries demonstrate moderate atherosclerotic calcification, also described in the CT of the abdomen and pelvis from the same date. Please reference that report. Vascular stent previously described involving the right external iliac artery is present. Bones/joints: There are mild degenerative changes of the hip joints. There are mild degenerative changes of the symphyseal pubic joint. There are mild degenerative changes of the sacroiliac joints. There is mild diffuse osteopenia. Dsnt-ql-wvkzrwyo facet degenerative arthropathy involves the lower lumbosacral spine. There is no evidence of acute fracture. Soft tissues: Mild fat stranding previously described involving the bilateral anterolateral soft tissues of the lower abdomen and pelvis may reflect post contusive edema. No focal soft tissue hematomas. IMPRESSION: No acute posttraumatic osseous abnormality.
--- NOTE | 2024-08-12 17:32 | CT_ITS ---
PROCEDURE INFORMATION: Exam: CTA Neck With Contrast Exam date and time: 08/12/2024 6:37 PM Age: 84 years old Clinical indication: Injury or trauma; Fall; Blunt trauma; Head; Additional info: Trauma, critical injury suspected TECHNIQUE: Imaging protocol: Computed tomographic angiography of the neck with contrast. Exam focused on the cervical segments of the vasculature. 3D rendering (Not supervised by radiologist): MIP and/or 3D reconstructed images were created by the technologist. Radiation optimization: All CT scans at this facility use at least one of these dose optimization techniques: automated exposure control; mA and/or kV adjustment per patient size (includes targeted exams where dose is matched to clinical indication); or iterative reconstruction. Contrast material: ISO 370; Contrast volume: 80 ml; Contrast route: INTRAVENOUS (IV); COMPARISON: 1. CT CERVICAL SPINE WO CON 08/12/2024 6:[address] ANGIO HEAD 08/12/2024 6:[address] CERVICAL SPINE WO CON 11/27/2021 6:25 AM FINDINGS: Right common carotid artery: There is atherosclerotic disease of the right carotid bulb without significant stenosis of the internal carotid artery. Right internal carotid artery: No stenosis of the extracranial segment. No dissection or occlusion. Right external carotid artery: No occlusion or stenosis of the origin. Left common carotid artery: There is atherosclerotic disease of the left carotid bulb without significant stenosis of the internal carotid artery. Left internal carotid artery: No stenosis of the extracranial segment. No dissection or occlusion. Left external carotid artery: No occlusion or stenosis of the origin. Right vertebral artery: No stenosis. No dissection or occlusion. Left vertebral artery: No stenosis. No dissection or occlusion. Thyroid: There is heterogeneity of the thyroid gland for which nonemergent thyroid ultrasound should be considered. Soft tissues: Normal. No significant soft tissue swelling. Bones/joints: No acute fracture. The patient is status post median sternotomy. Mediastinal space: There are surgical clips in the region of the mediastinum. IMPRESSION: 1. Atherosclerotic disease of the carotid bulbs without significant stenosis of the internal carotid arteries. 2. There is heterogeneity of the thyroid gland for which nonemergent thyroid ultrasound should be considered. REFERENCES: NASCET CRITERIA. The degree of stenosis in the cervical segment of the internal carotid artery is based on NASCET criteria. Normal is no stenosis. Mild is less than 50% stenosis. Moderate is 50-69% stenosis. Severe is 70% to 99% stenosis. Total occlusion is no detectable patent lumen.
[2024-08-12] MEDS: 0.9 % SODIUM CHLORIDE 1000ML 1,000 ML 999 ML IV (17:56)
[2024-08-12] MEDS: ONDANSETRON 4MG/2ML VIAL 4 MG IV (17:56)
[2024-08-12] MEDS: ACETAMINOPHEN 1,000MG/100ML VIAL 1000 MG IV (17:56)
[2024-08-12 18:00] VITALS: BP 128/54; PULSE 61; RESP 15; O2SAT 95
[2024-08-12 18:04] LABS: Albumin Level 3.9 g/dl (3.5-5.0); Chloride 99 mmol/L (98-107); Sodium 132 mmol/L (136-145)
[2024-08-12 18:07] LABS: Alanine Aminotransferase 18 U/L (12-78); Albumin/Globulin Ratio 1.4 (1.1-1.8); Alkaline Phosphatase 104 U/L (38-126); Anion Gap 13.4 mEq/L (5-15); Aspartate Amino Transferase 29 U/L (17-59); Bilirubin,Total 0.5 mg/dl (0.2-1.3); Blood Urea Nitrogen 36 mg/dl (9-20); Carbon Dioxide 26 mmol/L (22.0-30.0); Creatinine Clearance Estimated 39 mL/min (50-200); Estimated Glomerular Filt Rate 34 ml/min (>60); GFR (African American) 41 ML/MIN (>60); Globulin 2.7 g/dL (1.3-3.2); Total Protein,Serum 6.6 g/dl (6.3-8.2)
--- NOTE | 2024-08-12 18:07 | PC.NURSE ---
BS is 356 @[id number].
[2024-08-12 18:08] LABS: Calcium 9.1 mg/dl (8.4-10.2); Glucose 337 mg/dl (74-100); Magnesium 2.1 mg/dl (1.6-2.3)
[2024-08-12 18:10] LABS: Potassium 6.4 mmoL/L (3.5-5.1)
--- NOTE | 2024-08-12 18:10 | PC.NURSE ---
Dr. Nicolas notified of potassium of 6.4.
[2024-08-12 18:13] LABS: Coronavirus 19, PCR Not Detected (NotDetected); Influenza A, PCR Not Detected (NotDetected); Influenza B, PCR Not Detected (NotDetected)
[2024-08-12 18:13] LABS: Basophils % 0.5 % (0.1-2.0); Eosinophils # 0.2 K/mm3 (0.0-0.4); Eosinophils % 2.4 % (0.1-12.0); Hematocrit 31.4 % (42.0-52.0); Hemoglobin 9.3 g/dL (14.1-18.0); Lymphocytes # 1.4 K/mm3 (0.7-4.5); Lymphocytes % 16.3 % (10-50); Mean Corpuscular HGB Conc 29.6 g/dL (31.8-35.4); Mean Corpuscular Volume 77.5 fl (80-94); Mean Platelet Volume 9.5 fl (7.4-10.4); Monocytes # 0.5 K/mm3 (0.1-1.0); Neutrophils # 6.5 K/mm3 (1.8-7.8); Neutrophils % 74.3 % (37.0-80.0); Platelet Count 318 K/mm3 (142-424); Red Blood Count 4.05 M/mm3 (4.60-6.20); Red Cell Distribution Width 16.7 % (11.5-17.5); White Blood Count 8.7 K/mm3 (4.8-10.8)
[2024-08-12] MEDS: 0.9 % SODIUM CHLORIDE 50 ML VIAL 80 ML IV (18:26)
[2024-08-12] MEDS: IOPAMIDOL-370 (76%);100ML BOTTLE 160 ML IV (18:26)
[2024-08-12] MEDS: SODIUM CHLORIDE 0.9% 10ML SYR (RAD ONLY) 10 ML IV (18:27)
[2024-08-12 18:29] LABS: Activated Partial Thrombo Time 27.4 seconds (22.8-30.6); Prothrombin Time 12.2 seconds (10.1-12.5)
[2024-08-12 18:30] LABS: Troponin I < 0.01 ng/ml (0.00-0.034)
[2024-08-12] MEDS: SODIUM CHLORIDE 0.9% 500ML BAG 500 ML IV (18:50)
[2024-08-12] MEDS: CALCIUM GLUC IN NACL, ISO-OSM 2 GM/100 ML BAG IV (18:51)
[2024-08-12] MEDS: INSULIN HUMAN REGULAR 100 UNITS/ML 10ML VIAL 9 UNIT IV (18:51)
--- NOTE | 2024-08-12 19:17 | PC.NURSE ---
Dr. Nicolas s/w BARRY for critical results. Asked for Radiology to power-share results to [facility] & make a disc
[2024-08-12] MEDS: FAMOTIDINE 20MG TABLET 40 MG PO (19:21)
[2024-08-12 20:16] VITALS: BP 152/59; PULSE 60; RESP 20; TEMP 36.7; O2SAT 97
== END 2024-08-12 21:03 | disposition short-term general hospital (02) ==
PROVIDERS: Physician Assistant; Emergency Provider Emergency Medicine; PCP Family Medicine
DX: S02.2XXA Fracture of nasal bones, initial encounter for closed fracture (principal); I62.00 Nontraumatic subdural hemorrhage, unspecified; E87.5 Hyperkalemia; R00.1 Bradycardia, unspecified; R55 Syncope and collapse; R42 Dizziness and giddiness; W19.XXXA Unspecified fall, initial encounter; Y93.89 Activity, other specified; Y92.003 Bedroom of unspecified non-institutional (private) residence as the place of occurrence of the external cause; Z87.891 Personal history of nicotine dependence
CPT/HCPCS: 70450; 70486; 70496; 70498; 71275; 72125; 72128; 72131; 72192; 74174; 80053; 83735; 84484; 85025; 85610; 85730; 87636; 93005; 96361; 96374; 96375; 99285; J0131; J2405; J7030; Q9967

== ENCOUNTER 2024-08-27 13:07 | Emergency (ER) | payer MEDICARE, OTHER, SELFPAY ==
[2024-08-27] VITALS (20 sets, daily range): BP systolic 149–187; BP diastolic 62–87; PULSE 61–109; RESP 20–26; TEMP 36.6–36.7; O2SAT 91–96; BMI 39.1
--- NOTE | 2024-08-27 13:10 | ECG_ITS ---
APPROVED REPORT Exam: Resting ECG HR:99 bpm ECG Measurements Heart Rate 99 AXES QRSd 133 QRS 52 QT 367 T -78 QTc 424 Conclusion ATRIAL FIBRILLATION INTRAVENTRICULAR CONDUCTION DELAY [130+ ms QRS DURATION] ABNORMAL ECG Electronically signed by : STEVE CADENA, 08/27/2024 17:08:02
--- NOTE | 2024-08-27 13:11 | ED_ITS ---
<Statement entered by Branden Ventura MD - 08/27/24 17:59> I was consulted by the MIGNON, and we discussed the complexity of the problems being addressed. I approved the treatment and management plan for this patient's care in the emergency department, thus performing a substantive portion of the medical decision making. Serial troponins nonactionable, CT imaging remarkable for duodenitis which patient is already on PPI will have outpatient follow-up. Had resolution of pain in the ER and hyperglycemia without evidence of DKA patient is appropriate for outpatient management at this time. Branden Ventura MD <Statement entered by Cinthia Nicolas DO - 08/27/24 16:28> I was consulted by the MIGNON, and we discussed the complexity of the problems being addressed. I approved the treatment and management plan for this patient's care in the emergency department, thus performing a substantive portion of the medical decision making. CT scans pending at time of signout to oncoming provider at my departure at 1500. I independently interpreted EKG at 1317 and noted atrial fibrillation with left bundle branch block. No acute STEMI. Ventricular rate 99 bpm. QTc 424 ms. Cinthia Nicolas DO Discharge Plan Disposition Chief Complaint: Nausea/Vomiting/Diarrhea Prescriptions Prescriptions: No Action oxybutynin chloride 10 mg tablet extended release 24hr PO Stiolto Respimat 2.5-2.5 mcg/actuation mist 2 puff inhalation DAILY Qty: 4 12RF torsemide 10 mg tablet 30 mg PO QAM tamsulosin 0.4 mg capsule 0.4 mg PO DAILY rosuvastatin 20 mg tablet 20 mg PO DAILY Qty: 90 3RF Xarelto 15 mg tablet 15 mg PO QPMWITHMEAL Qty: 60 0RF Jardiance 10 mg tablet 10 mg PO DAILY Qty: 90 0RF albuterol sulfate 90 mcg/actuation HFA aerosol inhaler 2 puff inhalation Q6H PRN (Reason: shortness of breath or wheezing) Qty: 8.5 12RF gabapentin 300 mg capsule See Rx Instructions .ROUTE .COMPLEX Qty: 60 3RF Dose Instruction: TAKE 1 CAPSULE BY MOUTH 2 TIMES A DAY FOR PAIN Rx Instructions: TAKE 1 CAPSULE BY MOUTH 2 TIMES A DAY FOR PAIN gemfibrozil 600 mg tablet 600 mg PO BID Qty: 90 1RF Humulin 70/30 U-100 KwikPen 100 unit/mL (70-30) insulin pen 50 unit SQ BID Qty: 15 3RF (DME) pen needle, diabetic [BD Jayne 2nd Gen Pen Needle] 32 gauge x 5/32 needle See Rx Instructions .ROUTE .MEDSUPPLY Qty: 1200 0RF Rx Instructions: As directed irbesartan 75 mg tablet 37.5 mg PO DAILY 30 Days Qty: 90 0RF spironolactone 25 mg tablet 25 mg PO DAILY Qty: 90 0RF finasteride 5 mg tablet 5 mg PO HS Qty: 90 0RF pantoprazole 40 mg tablet,delayed release (DR/EC) 40 mg PO DAILY Qty: 90 1RF nystatin 100,000 unit/gram cream 1 applic topical TID Qty: 60 1RF rosuvastatin 40 mg tablet 40 mg PO DAILY ferrous gluconate 324 mg (38 mg iron) tablet 324 mg PO DAILY hydrocodone-acetaminophen 5-325 mg tablet 1 tab PO DAILY Qty: 30 0RF Referrals Follow up/Referrals: Andres Valencia MD [Primary Care Provider] - See instructions Instructions Patient Instructions: DI for Nausea -- Adult, DI for Nausea -- Child, DI for Diarrhea and Traveler's Diarrhea -- Adult, DI for Diarrhea and Traveler's Diarrhea -- Child Print Language Print Language: German Discharge ED Provider: Cinthia Nicolas General Chief Complaint: Nausea/Vomiting/Diarrhea Stated Complaint: cp Time Seen by Provider: 08/27/24 13:11 Related Data Home Medications ?Medication ?Instructions ?Recorded ?Confirmed tamsulosin 0.4 mg capsule 0.4 mg PO DAILY 11/22/23 07/19/24 ferrous gluconate 324 mg (38 mg 324 mg PO DAILY 03/31/24 07/19/24 iron) tablet rosuvastatin 40 mg tablet 40 mg PO DAILY 03/31/24 07/19/24 oxybutynin chloride 10 mg mg PO 05/28/24 07/19/24 tablet,extended release 24 hr torsemide 10 mg tablet 30 mg PO QAM 07/19/24 Previous Rx's ?Medication ?Instructions ?Recorded tiotropium 2.5 mcg-olodaterol 2.5 2 puff inhalation DAILY Breathing 11/21/23 mcg/actuation mist for inhalation problems #4 grams (Stiolto Respimat) hydrocodone 5 mg-acetaminophen 325 1 tab PO DAILY #30 tabs 03/21/24 mg tablet rosuvastatin 20 mg tablet 20 mg PO DAILY #90 tabs 05/10/24 rivaroxaban 15 mg tablet (Xarelto) 15 mg PO QPMWITHMEAL #60 tabs 05/14/24 empagliflozin 10 mg tablet 10 mg PO DAILY #90 tabs 05/23/24 (Jardiance) albuterol sulfate 90 mcg/actuation 2 puff inhalation Q6H PRN 06/25/24 aerosol inhaler shortness of breath or wheezing #8.5 grams gabapentin 300 mg capsule See Rx Instructions .Route 06/25/24 .COMPLEX #60 caps gemfibrozil 600 mg tablet 600 mg PO BID #90 tabs 06/25/24 insulin NPH-regular 70-30 U-100 50 unit (0.5 mL) SQ BID #15 mL 07/05/24 insulin 100 unit/mL subcutaneous pen (Humulin 70/30 U-100 KwikPen) irbesartan 75 mg tablet 37.5 mg (1/2 x 75 mg) PO DAILY 30 07/10/24 days #90 tabs pen needle, diabetic 32 gauge x #1,200 ea 07/10/24 (BD Jayne 2nd Gen Pen Needle) spironolactone 25 mg tablet 25 mg PO DAILY #90 tabs 07/10/24 finasteride 5 mg tablet 5 mg PO HS #90 tabs 07/16/24 nystatin 100,000 unit/gram topical 1 applic topical TID #60 grams 07/23/24 cream pantoprazole 40 mg tablet,delayed 40 mg PO DAILY #90 tabs 07/23/24 release Allergies Allergy/AdvReac Type Severity Reaction Status Date / Time oxycodone Allergy Intermediate I-RASH Verified 07/19/24 14:02 Sulfa (Sulfonamide Allergy Unknown Unknown Verified 07/19/24 14:02 Antibiotics) allergy reaction aspirin AdvReac Intermediate Other Verified 07/19/24 14:02 [facility] Disclaimer: The information contained in this section may have been updated after the patient was seen, as this information can be updated by other users. Medical History Chronic kidney disease Bradycardia HLD (hyperlipidemia) Atrial fibrillation Atypical angina HTN (hypertension) Morbid obesity with BMI of 40.0-44.9, adult CKD stage 3a, GFR 45-59 ml/min Iron deficiency anemia Multiple pulmonary nodules Chronic hypoxemic respiratory failure COPD (chronic obstructive pulmonary disease) Pulmonary emphysema Stopped smoking with greater than 30 pack year history Lung nodule Dyspnea on exertion Sleep apnea Diabetes mellitus Abnormal EKG JUAN FRANCISCO (cerebral atherosclerosis) Edema Pre-op evaluation Claudication Paroxysmal atrial fibrillation HHD (hypertensive heart disease) Surgical History History of prostate surgery History of heart artery stent Family History Other Anemia Coronary artery disease Diabetes Heart attack Hyperlipidemia Hypertension Stroke Social History Smoking Status: Former smoker tobacco type: cigarettes packs per day: 2 second hand exposure: No alcohol intake: never substance use type: denies use current occupational status: retired Travel in the last 8 weeks: None household members: spouse housing: house current occupational exposures/hazards: No caffeine: Yes Have you lived/traveled outside [place] in past 30 days?: No Contact w/someone who lives/traveled outside [place] past 30 days?: No Exposure to someone with infectious disease in past 14 days?: No Do you have a fever (greater than 100.4 F or 38 C)?: No Have you tested positive for COVID-19: No Exposed to someone with COVID-19 in past 14 days?: No Do you have a sore throat?: No Do you have a cough?: No Do you have any weakness?: No Do you have any diarrhea?: No Are you experiencing any unusual bleeding?: No Do you have any muscle aches/pain?: No Do you have any abdominal pain?: No Are you experiencing loss of taste or smell?: No Other Medical History Have you received the Flu Vaccine for this season: No Have you received the Pneumonia Vaccine: Yes ROS Obtained: Yes Systems reviewed as appropriate & no additional complaints except as documented Physical Exam General General appearance: alert and in no apparent distress Head Head exam: atraumatic and normal inspection Eye Eye exam: Present normal appearance, PERRL and EOMI ENT ENT exam: Present normal exam, normal oropharynx and mucous membranes moist Neck Neck exam: Present normal inspection, full ROM and trachea midline; Absent lymphadenopathy Chest Chest inspection: Present normal inspection and symmetric chest wall rise Respiratory Respiratory exam: Present normal lung sounds bilaterally; Absent accessory muscle use Cardiovascular Cardiovascular exam: Present regular rate, normal rhythm, normal heart sounds, +S1 and +S2 Abdominal Exam Abdominal exam: Present soft and normal bowel sounds; Absent tenderness, guarding or rebound Extremities Exam Extremities exam: Present normal inspection and full ROM Neurological Exam Neurological exam: Present alert, oriented X3 and CN II-XII intact Psychiatric Psychiatric exam: Present normal affect and normal mood Skin Skin exam: Present warm, dry and normal color Lymphatic Lymphatic Findings: no adenopathy Medical Decision Making Vital Signs Vital Signs: 08/27/24 13:07 08/27/24 13:31 08/27/24 14:01 Temperature 97.8 F Temperature Source Oral Pulse Rate 85 103 H Pulse Rate [Right] 82 Respiratory Rate 20 22 21 Blood Pressure 185/69 H 168/87 H Blood Pressure [Left Arm] 164/68 H Blood Pressure Mean [Left Arm] 100 Blood Pressure Source [Left Arm] Automatic Cuff 02 Sat by Pulse Oximetry 95 93 L 94 L Oxygen Delivery Method Room Air Room Air Room Air 08/27/24 14:30 08/27/24 14:31 08/27/24 14:59 Temperature Temperature Source Pulse Rate 84 102 H 91 H Pulse Rate [Right] Respiratory Rate 21 26 H 26 H Blood Pressure 164/68 H 158/62 H Blood Pressure [Left Arm] Blood Pressure Mean [Left Arm] Blood Pressure Source [Left Arm] 02 Sat by Pulse Oximetry 95 95 95 Oxygen Delivery Method Room Air 08/27/24 15:01 08/27/24 15:33 Temperature Temperature Source Pulse Rate 61 105 H Pulse Rate [Right] Respiratory Rate 22 21 Blood Pressure 154/74 H 176/74 H Blood Pressure [Left Arm] Blood Pressure Mean [Left Arm] Blood Pressure Source [Left Arm] 02 Sat by Pulse Oximetry 95 94 L Oxygen Delivery Method Room Air Room Air Lab Data Labs: Lab Results 08/27/24 13:00: Lactate 2.0 08/27/24 13:19: WBC 17.1 H, RBC 4.72, Hgb 10.4 L, Hct 35.5 L, MCV 75.2 L, MCH 22.0 L, MCHC 29.3 L, RDW 17.9 H, Plt Count 304, MPV 9.8, Neut % (Auto) 90.4 H, L ymph % (Auto) 4.0 L, [place] % (Auto) 4.8, Eos % (Auto) 0.0 L, Baso % (Auto) 0.2, N eut # (Auto) 15.5 H, Lymph # (Auto) 0.7, [place] # (Auto) 0.8, Eos # (Auto) 0.0, Baso # (Auto) 0.0, Total Counted 100, Neutrophils % (Manual) 93 H, Lymphocytes % (Manual) 3 L, Monocytes % (Manual) 4, Platelet Estimate Normal, RBC Morphology Normal, PT 10.3, INR 0.93, Sodium 135 L, Potassium 4.6, Chloride 100, Carbon Dioxide 24, Anion Gap 15.6 H, BUN 21 H, Creatinine 0.90, Estimated GFR 81, Est GFR ( Amer) 98, Glucose 414 H*, Calcium 8.9, Magnesium 1.7, Total Bilirubin 0.7, AST 35, ALT 39, Alkaline Phosphatase 201 H, Troponin I 0.02, N T-Pro-B Natriuret Pep 17969 H, Total Protein 6.5, Albumin 3.8, Globulin 2.7, Albumin/Globulin Ratio 1.4, Lipase 41, Acetone Level None detected 08/27/24 13:58: VBG pH 7.32, VBG pCO2 43.7, VBG pO2 43.6 H, VBG HCO3 21.9 L, VBG Total CO2 23.3, VBG O2 Saturation 71.1 H, VBG Base Excess -4.2 L, VBG Lactic Acid 2.7 H 08/27/24 13:19 08/27/24 13:19 Response Orders (Tests/Meds): ED MEDICATIONS Discontinued Medications Generic Name Dose Route Start Last Admin Trade Name Freq PRN Reason Stop Dose Admin Belladonna Alkaloids 60 ml 08/27/24 13:17 08/27/24 14:00 Belladonna Alkaloids 60 Ml Ml PO 08/27/24 13:18 60 ml ONCE ONE Administration Lactated Ringer's 1,000 mls @ 999 mls/hr 08/27/24 13:17 08/27/24 14:00 Lactated Ringer's 1000 Ml Bag IV 08/27/24 14:17 999 mls/hr .Q1H1M ONE Administration Iopamidol 75 ml 08/27/24 15:22 08/27/24 15:22 Iopamidol-370 (76%);100ml Bottle IV 08/27/24 15:23 75 ml ONCE ONE Administration Sodium Chloride 10 ml 08/27/24 15:22 08/27/24 15:22 Sodium Chloride 0.9% 10ml Syr (Rad Only) IV 08/27/24 15:23 10 ml ONCE ONE Administration ORDERS Category Date Time Status CT abdomen pelvis w con Stat Cat Scan 08/27/24 15:[address] chest w con Stat Cat Scan 08/27/24 15:01 Completed XR chest portable Stat Exams 08/27/24 14:08 Completed Acetone, Serum (Rapid) Stat Lab 08/27/24 13:19 Completed BNP [NT Pro Brain Natriuretic Pep.] Stat Lab 08/27/24 13:19 Completed CBC w/Auto Diff [Complete Blood Count Auto Diff] Stat Lab 08/27/24 13:19 Completed CMP [Comprehensive Metabolic Panel] Stat Lab 08/27/24 13:19 Completed INR [Prothrombin Time INR] Stat Lab 08/27/24 13:19 Completed Lactic Acid Stat Lab 08/27/24 13:00 Completed Lipase Stat Lab 08/27/24 13:19 Completed Magnesium Stat Lab 08/27/24 13:19 Completed Thyroid Panel Stat Lab 08/27/24 13:19 Received Trop I [Troponin I] Stat Lab 08/27/24 13:19 Completed Troponin I Q3H Lab 08/27/24 16:30 Ordered Troponin I Q3H Lab 08/27/24 19:30 Ordered Blood Culture Stat Micro 08/27/24 14:40 Received VBG [Venous Blood Gas] Stat RT 08/27/24 13:58 Completed
[2024-08-27 13:32] LABS: Basophils % 0.2 % (0.1-2.0); Hematocrit 35.5 % (42.0-52.0); Hemoglobin 10.4 g/dL (14.1-18.0); Lymphocytes # 0.7 K/mm3 (0.7-4.5); Mean Corpuscular HGB Conc 29.3 g/dL (31.8-35.4); Mean Corpuscular Volume 75.2 fl (80-94); Mean Platelet Volume 9.8 fl (7.4-10.4); Monocytes # 0.8 K/mm3 (0.1-1.0); Monocytes % 4.8 % (1.7-9.3); Neutrophils # 15.5 K/mm3 (1.8-7.8); Neutrophils % 90.4 % (37.0-80.0); Platelet Count 304 K/mm3 (142-424); Red Blood Count 4.72 M/mm3 (4.60-6.20); Red Cell Distribution Width 17.9 % (11.5-17.5); White Blood Count 17.1 K/mm3 (4.8-10.8)
[2024-08-27 13:39] LABS: Albumin Level 3.8 g/dl (3.5-5.0); Chloride 100 mmol/L (98-107)
[2024-08-27 13:40] LABS: Potassium 4.6 mmoL/L (3.5-5.1); Sodium 135 mmol/L (136-145)
[2024-08-27 13:42] LABS: Alanine Aminotransferase 39 U/L (12-78); Albumin/Globulin Ratio 1.4 (1.1-1.8); Alkaline Phosphatase 201 U/L (38-126); Anion Gap 15.6 mEq/L (5-15); Aspartate Amino Transferase 35 U/L (17-59); Bilirubin,Total 0.7 mg/dl (0.2-1.3); Blood Urea Nitrogen 21 mg/dl (9-20); Carbon Dioxide 24 mmol/L (22.0-30.0); Estimated Glomerular Filt Rate 81 ml/min (>60); GFR (African American) 98 ML/MIN (>60); Globulin 2.7 g/dL (1.3-3.2); Total Protein,Serum 6.5 g/dl (6.3-8.2)
[2024-08-27 13:43] LABS: Calcium 8.9 mg/dl (8.4-10.2); Lipase 41 U/L (23-300); MANUAL DIFFERENTIAL MANUAL DIFFERENTIAL (MANUAL DIFF); Magnesium 1.7 mg/dl (1.6-2.3)
[2024-08-27 13:46] LABS: Glucose 414 mg/dl (74-100)
[2024-08-27 13:49] LABS: INR 0.93 (0.9-1.1); Prothrombin Time 10.3 seconds (9.2-12.1)
[2024-08-27 14:00] LABS: Lactate Venous 2.7 mmol/L (0.4-2.0); VBG Base Excess -4.2 mmol/L (-2.4-2.3); VBG HCO3 21.9 mmol/L (23-30); VBG Oxygen Saturation 71.1 % (50-70); VBG PCO2 43.7 mmol/L (35-51); VBG PH 7.32 mmol/L (7.31-7.41); VBG PO2 43.6 mmol/L (28-40); VBG Total CO2 23.3 mmol/L (23-27)
[2024-08-27] MEDS: BELLADONNA ALKALOIDS 60 ML ML PO (14:00)
[2024-08-27] MEDS: LACTATED RINGERS 1000ML 1,000 ML 999 ML IV (14:00)
--- NOTE | 2024-08-27 14:04 | PC.NURSE ---
Called TJ for a ultra sound IV. Advised 10 min.
--- NOTE | 2024-08-27 14:08 | XR_ITS ---
FINAL REPORT CLINICAL HISTORY: Epigastric chest pain COMPARISON: 07/28/2024 FINDINGS: There is mild cardiomegaly. Sternotomy wires are present. There is a left-sided pacemaker. There is coarse interstitial opacity at the lung bases. There is no focal infiltrate or edema. There are no pleural effusions. There is no pneumothorax. There is no osseous abnormality. IMPRESSION: Coarse interstitial opacity at the lung bases. Reviewed, Interpreted and Dictated by Rogelio Wayne MD Transcribed by Kassi Mccartney Authenticated and [facility]
[2024-08-27 14:27] LABS: Lymphocytes % 3 % (10-50); Monocytes % 4 % (2-9); Neutrophils % 93 % (42-76); Platelet Estimate Normal; RBC Morphology Normal; Total Cells Counted 100
[2024-08-27 14:46] LABS: NT Pro Brain Natriuretic Pep. 12400 pg/mL (0-450)
[2024-08-27 14:49] LABS: Troponin I 0.02 ng/ml (0.00-0.034)
--- NOTE | 2024-08-27 15:01 | CT_ITS ---
FINAL REPORT TECHNIQUE: After the administration of oral and intravenous contrast, axial images were obtained through the abdomen and pelvis by computed tomography. The study was performed with techniques to keep radiation dose as low as reasonably achievable, (ALARA). Individual dose reduction techniques using automated exposure control or adjustment of mA and/or kV according to the patient's size were employed. CLINICAL HISTORY: Epigastric abdominal pain COMPARISON: 08/12/2024 FINDINGS: Abdomen: . The liver parenchyma is homogeneous. There are multiple gallstones and sludge in the dependent portion of the gallbladder. The spleen, pancreas, adrenals and kidneys appear unremarkable. The aorta is normal in caliber. There is no free fluid or adenopathy. Abnormal mucosal thickening is seen extending from the pyloric channel to the third portion of the duodenum with surrounding stranding. Findings may be due to duodenitis or peptic ulcer disease. Pelvis: The appendix is not identified. There is stranding in the right paracolic gutter. The urinary bladder is unremarkable. There is no free fluid or adenopathy. Clips are noted in the inguinal region. There is a vascular stent in the right iliac artery. Radiation seed implants are present in the prostate. IMPRESSION: Mucosal thickening at the pyloric channel extending to the third portion of the duodenum likely due to duodenitis or peptic ulcer disease. Upper endoscopy may be helpful for further evaluation. Sludge/stones in the gallbladder. Reviewed, Interpreted and Dictated by Rogelio Wayne MD Transcribed by Jessica Dubon Authenticated and [facility]
--- NOTE | 2024-08-27 15:01 | CT_ITS ---
FINAL REPORT TECHNIQUE: Routine axial images were obtained from the lung apices to below the diaphragm following IV contrast administration. Individualized dose reduction techniques using automated exposure control or adjustment of the mA and/or kV according to the patient size were employed. CLINICAL HISTORY: Epigastric abdominal pain FINDINGS: Patient is status post median sternotomy. There are small mediastinal lymph nodes. Small bilateral pleural effusions are seen. Dependent edema is present at the lung bases. Lungs are otherwise clear. There is no pneumothorax. Heart is normal in size. IMPRESSION: Small bilateral pleural effusions with dependent edema. Reviewed, Interpreted and Dictated by Rogelio Wayne MD Transcribed by Jessica Dubon Authenticated and [facility]
[2024-08-27 15:20] LABS: Acetone, Serum (Rapid) None Detected (None Detect)
[2024-08-27] MEDS: SODIUM CHLORIDE 0.9% 10ML SYR (RAD ONLY) 10 ML IV (15:22)
[2024-08-27] MEDS: IOPAMIDOL-370 (76%);100ML BOTTLE 75 ML IV (15:22)
[2024-08-27 16:56] LABS: Free Thyroxine Index 2.9 ug/dL (5.93-13.13); T4 (Thyroxine) 8.4 ug/dl (5.53-11.0); Triiodothryronine (T3) Uptake 35 % (23.5-40.5)
[2024-08-27 17:09] LABS: Troponin I 0.02 ng/ml (0.00-0.034)
[2024-08-27 17:11] LABS: Thyroid Stimulating Hormone 1.75 uIU/mL (0.465-4.68)
--- NOTE | 2024-08-27 17:54 | PC.NURSE ---
pt voided 300ml in urinal.
--- NOTE | 2024-08-27 17:55 | PC.NURSE ---
pt is eating a sandwich and drinking water. tolerating well.
[2024-08-27 18:01] LABS: Reflex Lactic Add Lactic Reflex
--- NOTE | 2024-08-27 18:01 | ED_ITS ---
<Statement entered by Branden Ventura MD - 08/27/24 18:29> I was consulted by the MIGNON, and we discussed the complexity of the problems being addressed. I approved the treatment and management plan for this patient's care in the emergency department, thus performing a substantive portion of the medical decision making. Patient has hyperglycemia without evidence of DKA, nonspecific leukocytosis, serial flat troponins. CT imaging consistent with duodenitis already on PPI therapy. Patient is appropriate for outpatient management at this time. EKG independently interpreted by me rate is 99, rhythm is irregular, atrial fibrillation with bundle branch block, no excessive discordance, no ST elevation in anatomical contiguous leads. QTc 424. Branden Ventura MD Discharge Plan Disposition Patient Disposition: Home, Self-Care Condition: Good Prescriptions Prescriptions: No Action oxybutynin chloride 10 mg tablet extended release 24hr PO Stiolto Respimat 2.5-2.5 mcg/actuation mist 2 puff inhalation DAILY Qty: 4 12RF torsemide 10 mg tablet 30 mg PO QAM tamsulosin 0.4 mg capsule 0.4 mg PO DAILY rosuvastatin 20 mg tablet 20 mg PO DAILY Qty: 90 3RF Xarelto 15 mg tablet 15 mg PO QPMWITHMEAL Qty: 60 0RF Jardiance 10 mg tablet 10 mg PO DAILY Qty: 90 0RF albuterol sulfate 90 mcg/actuation HFA aerosol inhaler 2 puff inhalation Q6H PRN (Reason: shortness of breath or wheezing) Qty: 8.5 12RF gabapentin 300 mg capsule See Rx Instructions .ROUTE .COMPLEX Qty: 60 3RF Dose Instruction: TAKE 1 CAPSULE BY MOUTH 2 TIMES A DAY FOR PAIN Rx Instructions: TAKE 1 CAPSULE BY MOUTH 2 TIMES A DAY FOR PAIN gemfibrozil 600 mg tablet 600 mg PO BID Qty: 90 1RF Humulin 70/30 U-100 KwikPen 100 unit/mL (70-30) insulin pen 50 unit SQ BID Qty: 15 3RF (DME) pen needle, diabetic [BD Jayne 2nd Gen Pen Needle] 32 gauge x 5/32 needle See Rx Instructions .ROUTE .MEDSUPPLY Qty: 1200 0RF Rx Instructions: As directed irbesartan 75 mg tablet 37.5 mg PO DAILY 30 Days Qty: 90 0RF spironolactone 25 mg tablet 25 mg PO DAILY Qty: 90 0RF finasteride 5 mg tablet 5 mg PO HS Qty: 90 0RF pantoprazole 40 mg tablet,delayed release (DR/EC) 40 mg PO DAILY Qty: 90 1RF nystatin 100,000 unit/gram cream 1 applic topical TID Qty: 60 1RF rosuvastatin 40 mg tablet 40 mg PO DAILY ferrous gluconate 324 mg (38 mg iron) tablet 324 mg PO DAILY hydrocodone-acetaminophen 5-325 mg tablet 1 tab PO DAILY Qty: 30 0RF Referrals Follow up/Referrals: Chad Cooper II, MD [Staff Physician] - See instructions Andres Valencia MD [Primary Care Provider] - See instructions Activity Restrictions/Add. Instructions Additional Instructions/Restrictions: I have referred you to gastroenterology for further workup of your esophageal symptoms. Please call to make your appointment in the morning. Follow-up with your PCP within 48 hours for recheck of your laboratory work and symptoms. Return to ER for any worsening signs or symptoms as needed. Clinical Impressions Clinical Impression: Epigastric abdominal pain, Duodenitis Instructions Patient Instructions: DI for Diarrhea and Traveler's Diarrhea -- Adult, DI for Diarrhea and Traveler's Diarrhea -- Child, DI for Nausea -- Adult, DI for Nausea -- Child Print Language Print Language: Albanian Discharge ED Provider: Cinthia Nicolas General Adult HPI General Chief complaint: Nausea/Vomiting/Diarrhea Stated complaint: cp Time Seen by Provider: 08/27/24 13:11 Mode of Arrival: EMS Source of Information: Patient Limitations: No Limitations Description of Symptoms (Recalled from ER Triage Doc. by RN): Pt c/o real bad heartburn . EMS reports they were called out for left sided chest pain. Pt points to his left upper abd to epigastric region. Denies any SOA. Pt is well known to [facility] and recently had a pacemaker placed at . History of Present Illness HPI narrative: Patient presents for evaluation of epigastric abdominal pain. Patient reports that he began having epigastric abdominal pain that began today. He does have a significant both past and recent medical history of bradycardia arrest, recent AICD implantation, chronic atrial fibrillation on Eliquis insulin-dependent type 2 diabetes mellitus. Patient currently denies chest pain fever chills hemoptysis hematochezia melena nausea vomiting diarrhea. Related Data Home Medications ?Medication ?Instructions ?Recorded ?Confirmed tamsulosin 0.4 mg capsule 0.4 mg PO DAILY 11/22/23 07/19/24 ferrous gluconate 324 mg (38 mg 324 mg PO DAILY 03/31/24 07/19/24 iron) tablet rosuvastatin 40 mg tablet 40 mg PO DAILY 03/31/24 07/19/24 oxybutynin chloride 10 mg mg PO 05/28/24 07/19/24 tablet,extended release 24 hr torsemide 10 mg tablet 30 mg PO QAM 07/19/24 Previous Rx's ?Medication ?Instructions ?Recorded tiotropium 2.5 mcg-olodaterol 2.5 2 puff inhalation DAILY Breathing 11/21/23 mcg/actuation mist for inhalation problems #4 grams (Stiolto Respimat) hydrocodone 5 mg-acetaminophen 325 1 tab PO DAILY #30 tabs 03/21/24 mg tablet rosuvastatin 20 mg tablet 20 mg PO DAILY #90 tabs 05/10/24 rivaroxaban 15 mg tablet (Xarelto) 15 mg PO QPMWITHMEAL #60 tabs 05/14/24 empagliflozin 10 mg tablet 10 mg PO DAILY #90 tabs 05/23/24 (Jardiance) albuterol sulfate 90 mcg/actuation 2 puff inhalation Q6H PRN 06/25/24 aerosol inhaler shortness of breath or wheezing #8.5 grams gabapentin 300 mg capsule See Rx Instructions .Route 06/25/24 .COMPLEX #60 caps gemfibrozil 600 mg tablet 600 mg PO BID #90 tabs 06/25/24 insulin NPH-regular 70-30 U-100 50 unit (0.5 mL) SQ BID #15 mL 07/05/24 insulin 100 unit/mL subcutaneous pen (Humulin 70/30 U-100 KwikPen) irbesartan 75 mg tablet 37.5 mg (1/2 x 75 mg) PO DAILY 30 07/10/24 days #90 tabs pen needle, diabetic 32 gauge x #1,200 ea 07/10/24 (BD Jayne 2nd Gen Pen Needle) spironolactone 25 mg tablet 25 mg PO DAILY #90 tabs 07/10/24 finasteride 5 mg tablet 5 mg PO HS #90 tabs 07/16/24 nystatin 100,000 unit/gram topical 1 applic topical TID #60 grams 07/23/24 cream pantoprazole 40 mg tablet,delayed 40 mg PO DAILY #90 tabs 07/23/24 release Allergies Allergy/AdvReac Type Severity Reaction Status Date / Time oxycodone Allergy Intermediate I-RASH Verified 07/19/24 14:02 Sulfa (Sulfonamide Allergy Unknown Unknown Verified 07/19/24 14:02 Antibiotics) allergy reaction aspirin AdvReac Intermediate Other Verified 07/19/24 14:02 [facility] Disclaimer: The information contained in this section may have been updated after the patient was seen, as this information can be updated by other users. Medical History Chronic kidney disease Bradycardia HLD (hyperlipidemia) Atrial fibrillation Atypical angina HTN (hypertension) Morbid obesity with BMI of 40.0-44.9, adult CKD stage 3a, GFR 45-59 ml/min Iron deficiency anemia Multiple pulmonary nodules Chronic hypoxemic respiratory failure COPD (chronic obstructive pulmonary disease) Pulmonary emphysema Stopped smoking with greater than 30 pack year history Lung nodule Dyspnea on exertion Sleep apnea Diabetes mellitus Abnormal EKG JUAN FRANCISCO (cerebral atherosclerosis) Edema Pre-op evaluation Claudication Paroxysmal atrial fibrillation HHD (hypertensive heart disease) Surgical History History of prostate surgery History of heart artery stent Family History Other Anemia Coronary artery disease Diabetes Heart attack Hyperlipidemia Hypertension Stroke Social History Smoking Status: Former smoker tobacco type: cigarettes packs per day: 2 second hand exposure: No alcohol intake: never substance use type: denies use current occupational status: retired Travel in the last 8 weeks: None household members: spouse housing: house current occupational exposures/hazards: No caffeine: Yes Have you lived/traveled outside [place] in past 30 days?: No Contact w/someone who lives/traveled outside [place] past 30 days?: No Exposure to someone with infectious disease in past 14 days?: No Do you have a fever (greater than 100.4 F or 38 C)?: No Have you tested positive for COVID-19: No Exposed to someone with COVID-19 in past 14 days?: No Do you have a sore throat?: No Do you have a cough?: No Do you have any weakness?: No Do you have any diarrhea?: No Are you experiencing any unusual bleeding?: No Do you have any muscle aches/pain?: No Do you have any abdominal pain?: No Are you experiencing loss of taste or smell?: No Other Medical History Have you received the Flu Vaccine for this season: No Have you received the Pneumonia Vaccine: Yes ROS Obtained: Yes Systems reviewed as appropriate & no additional complaints except as documented Physical Exam General General appearance: alert and in no apparent distress Respiratory Respiratory exam: Present normal lung sounds bilaterally Cardiovascular Cardiovascular exam: Present regular rate Neurological Exam Neurological exam: Present alert and oriented X3 Medical Decision Making Medical Records Medical records reviewed: Yes I reviewed the patient's medical records. Screening: Per USPSTF and CDC recommendations, given the prevalence of disease in our region, it is our hospital?s policy to screen for HIV and viral Hepatitis for all patients aged 18 and over and those with ongoing risk factors. Bill Inquiry Pt receiving controlled substance: No Vital Signs: 08/27/24 13:07 08/27/24 13:31 08/27/24 14:01 Temperature 97.8 F Temperature Source Oral Pulse Rate 85 103 H Pulse Rate [Right] 82 Respiratory Rate 20 22 21 Blood Pressure 185/69 H 168/87 H Blood Pressure [Left Arm] 164/68 H Blood Pressure Mean Blood Pressure Mean [Left Arm] 100 Blood Pressure Source [Left Arm] Automatic Cuff 02 Sat by Pulse Oximetry 95 93 L 94 L Oxygen Delivery Method Room Air Room Air Room Air 08/27/24 14:30 08/27/24 14:31 08/27/24 14:59 Temperature Temperature Source Pulse Rate 84 102 H 91 H Pulse Rate [Right] Respiratory Rate 21 26 H 26 H Blood Pressure 164/68 H 158/62 H Blood Pressure [Left Arm] Blood Pressure Mean Blood Pressure Mean [Left Arm] Blood Pressure Source [Left Arm] 02 Sat by Pulse Oximetry 95 95 95 Oxygen Delivery Method Room Air 08/27/24 15:01 08/27/24 15:33 08/27/24 15:45 Temperature Temperature Source Pulse Rate 61 105 H 95 H Pulse Rate [Right] Respiratory Rate 22 21 21 Blood Pressure 154/74 H 176/74 H Blood Pressure [Left Arm] Blood Pressure Mean Blood Pressure Mean [Left Arm] Blood Pressure Source [Left Arm] 02 Sat by Pulse Oximetry 95 94 L 91 L Oxygen Delivery Method Room Air Room Air 08/27/24 16:00 08/27/24 16:01 08/27/24 16:15 Temperature Temperature Source Pulse Rate 89 80 99 H Pulse Rate [Right] Respiratory Rate 22 22 22 Blood Pressure 187/72 H Blood Pressure [Left Arm] Blood Pressure Mean Blood Pressure Mean [Left Arm] Blood Pressure Source [Left Arm] 02 Sat by Pulse Oximetry 92 L 92 L 92 L Oxygen Delivery Method 08/27/24 16:30 08/27/24 16:31 08/27/24 16:45 Temperature Temperature Source Pulse Rate 92 H 97 H 93 H Pulse Rate [Right] Respiratory Rate 22 22 22 Blood Pressure 167/71 H Blood Pressure [Left Arm] Blood Pressure Mean Blood Pressure Mean [Left Arm] Blood Pressure Source [Left Arm] 02 Sat by Pulse Oximetry 94 L 93 L 92 L Oxygen Delivery Method 08/27/24 17:00 08/27/24 17:31 Temperature Temperature Source Pulse Rate 102 H Pulse Rate [Right] Respiratory Rate 22 22 Blood Pressure 171/82 H 149/79 H Blood Pressure [Left Arm] Blood Pressure Mean 102 Blood Pressure Mean [Left Arm] Blood Pressure Source [Left Arm] 02 Sat by Pulse Oximetry 92 L Oxygen Delivery Method Room Air Lab Data Lab results reviewed: Yes I reviewed the patient's lab results. Lab Results 08/27/24 13:00: Lactate 2.0 08/27/24 13:19: WBC 17.1 H, RBC 4.72, Hgb 10.4 L, Hct 35.5 L, MCV 75.2 L, MCH 22.0 L, MCHC 29.3 L, RDW 17.9 H, Plt Count 304, MPV 9.8, Neut % (Auto) 90.4 H, L ymph % (Auto) 4.0 L, Daggett % (Auto) 4.8, Eos % (Auto) 0.0 L, Baso % (Auto) 0.2, N eut # (Auto) 15.5 H, Lymph # (Auto) 0.7, Daggett # (Auto) 0.8, Eos # (Auto) 0.0, Baso # (Auto) 0.0, Total Counted 100, Neutrophils % (Manual) 93 H, Lymphocytes % (Manual) 3 L, Monocytes % (Manual) 4, Platelet Estimate Normal, RBC Morphology Normal, PT 10.3, INR 0.93, Sodium 135 L, Potassium 4.6, Chloride 100, Carbon Dioxide 24, Anion Gap 15.6 H, BUN 21 H, Creatinine 0.90, Estimated GFR 81, Est GFR ( Amer) 98, Glucose 414 H*, Calcium 8.9, Magnesium 1.7, Total Bilirubin 0.7, AST 35, ALT 39, Alkaline Phosphatase 201 H, Troponin I 0.02, N T-Pro-B Natriuret Pep 67020 H, Total Protein 6.5, Albumin 3.8, Globulin 2.7, Albumin/Globulin Ratio 1.4, Lipase 41, TSH 1.75, Free T4 Index 2.9 L, Thyroxine (T4) 8.4, T3 Uptake 35, Acetone Level None detected 08/27/24 13:58: VBG pH 7.32, VBG pCO2 43.7, VBG pO2 43.6 H, VBG HCO3 21.9 L, VBG Total CO2 23.3, VBG O2 Saturation 71.1 H, VBG Base Excess -4.2 L, VBG Lactic Acid 2.7 H 08/27/24 16:28: Troponin I 0.02 08/27/24 13:19 08/27/24 13:19 Orders (Tests/Meds): ED MEDICATIONS Discontinued Medications Generic Name Dose Route Start Last Admin Trade Name Erasmoq PRN Reason Stop Dose Admin Belladonna Alkaloids 60 ml 08/27/24 13:17 08/27/24 14:00 Belladonna Alkaloids 60 Ml Ml PO 08/27/24 13:18 60 ml ONCE ONE Administration Lactated Ringer's 1,000 mls @ 999 mls/hr 08/27/24 13:17 08/27/24 14:00 Lactated Ringer's 1000 Ml Bag IV 08/27/24 14:17 999 mls/hr .Q1H1M ONE Administration Iopamidol 75 ml 08/27/24 15:22 08/27/24 15:22 Iopamidol-370 (76%);100ml Bottle IV 08/27/24 15:23 75 ml ONCE ONE Administration Sodium Chloride 10 ml 08/27/24 15:22 08/27/24 15:22 Sodium Chloride 0.9% 10ml Syr (Rad Only) IV 08/27/24 15:23 10 ml ONCE ONE Administration ORDERS Category Date Time Status CT abdomen pelvis w con Stat Cat Scan 08/27/24 15:[address] chest w con Stat Cat Scan 08/27/24 15:01 Completed XR chest portable Stat Exams 08/27/24 14:08 Completed Acetone, Serum (Rapid) Stat Lab 08/27/24 13:19 Completed BNP [NT Pro Brain Natriuretic Pep.] Stat Lab 08/27/24 13:19 Completed CBC w/Auto Diff [Complete Blood Count Auto Diff] Stat Lab 08/27/24 13:19 Completed CMP [Comprehensive Metabolic Panel] Stat Lab 08/27/24 13:19 Completed INR [Prothrombin Time INR] Stat Lab 08/27/24 13:19 Completed Lactic Acid Stat Lab 08/27/24 13:00 Completed Lipase Stat Lab 08/27/24 13:19 Completed Magnesium Stat Lab 08/27/24 13:19 Completed Thyroid Panel Stat Lab 08/27/24 13:19 Completed Trop I [Troponin I] Stat Lab 08/27/24 13:19 Completed Troponin I Q3H Lab 08/27/24 16:28 Completed Troponin I Q3H Lab 08/27/24 19:30 Ordered Blood Culture Stat Micro 08/27/24 14:40 Received VBG [Venous Blood Gas] Stat RT 08/27/24 13:58 Completed HEART Score History (anamnesis): Slightly suspicious ECG: Non-specific disturbance Age: >65 years Risk factors: Atherosclerosis history Troponin: </= normal limit HEART Score: 5 Medical Decision Narrative: In summary patient is a 84-year-old male who presents to the emergency department for evaluation of epigastric abdominal pain. Patient is patient is hemodynamically stable on arrival at 164/68 pulse 82 O2 sat 95% on room air breathing 20 times a minute upon arrival, afebrile at 97.8. Physical exam is remarkable for tenderness in the epigastrium with no rebound or guarding or rigidity. Patient has normal breath sounds normal heart sounds is a is in a paced rhythm however he appears to have A-fib with a slight rapid rate around 100 at the time of my exam on the bedside monitor.. Differential diagnosis includes ACS versus gastritis versus ulcer versus cholecystitis versus pancreatitis etc. Initial workup will be conducted with hematologic labs CT scan abdomen pelvis plain film chest x-ray twelve-lead EKG. Initial interventions include crystalloid bolus Tylenol and GI cocktail. Initial workup reviewed by me and his labs are significant for white count of 17.1 with an absolute neutrophil count of 15.5, a glucose of 414 and NT proBNP of 12,400 and a negative troponin with a flat delta at 0.02. My informal interpretation of his CT scan of the chest shows no acute infiltrates and the CT scan abdomen pelvis however shows thickened pyloric channel without evidence of perforation or free air. My informal interpretation of his chest x-ray shows cardiomegaly but no acute infiltrates. Upon repeat evaluation patient had complete resolution of his symptoms after GI cocktail and actually is tolerating oral intake.. Given this although patient has leukocytosis he has no evidence of infection currently and it could be stress margination. Given this patient is appropriate for discharge with follow-up with his PCP within 48 hours for recheck of his lab abnormalities and referral to gastroenterology for further workup of duodenitis Critical Care Critical Care Time Critical Care Time: No
--- NOTE | 2024-08-27 18:22 | PC.NURSE ---
called geovany wallace pt son and he states he will be here in 30 minutes to pick him up
--- NOTE | 2024-08-27 18:57 | PC.NURSE ---
John Ludwig PAC at bedside s.w pt and his son regarding work up and d/c. Pt at d/c was c/o continued pain and reflux
[2024-08-27] MEDS: ALUMINUM/MAGNESIUM/SIMETHICONE 30ML UDC 30 ML PO (19:22)
[2024-08-27] MEDS: FAMOTIDINE 20MG TABLET 40 MG PO (19:22)
--- NOTE | 2024-09-01 08:55 | PC.NURSE ---
discussed blood culture with , who report is contaminant due to other culture negative.
== END 2024-08-27 19:42 | disposition home or self-care (01) ==
PROVIDERS: Physician Assistant; Emergency Provider Emergency Medicine; PCP Family Medicine
DX: K29.80 Duodenitis without bleeding (principal); R07.9 Chest pain, unspecified; R10.13 Epigastric pain; Z95.0 Presence of cardiac pacemaker
CPT/HCPCS: 71045; 71260; 74177; 80053; 82009; 82803; 83605; 83690; 83735; 83880; 84436; 84443; 84479; 84484; 85007; 85025; 85027; 85610; 87040; 87077; 87186; 93005; 96360; 99285; J7120; Q9967

== ENCOUNTER 2024-09-12 11:30 | Inpatient (IN) | payer MEDICARE, OTHER, SELFPAY ==
[2024-09-12] VITALS (10 sets, daily range): BP systolic 155–203; BP diastolic 61–82; PULSE 65–88; RESP 13–21; TEMP 36.6; O2SAT 94–97; BMI 32.1; BMI 31.1
--- NOTE | 2024-09-12 | ECG_ITS ---
APPROVED REPORT Exam: Resting ECG HR:71 bpm ECG Measurements Heart Rate 71 AXES NV 154 P 204 QRSd 130 QRS -37 QT 408 T 137 QTc 430 Conclusion ELECTRONIC ATRIAL PACEMAKER ELECTRONIC VENTRICULAR PACEMAKER Electronically signed by : STEVE CADENA, 09/12/2024 15:56:47
[2024-09-12 12:20] LABS: Hemoglobin 8.4 g/dL (14.1-18.0); Lymphocytes # 0.8 K/mm3 (0.7-4.5); Mean Corpuscular Hemoglobin 20.8 pg (27.0-31.2); Monocytes # 0.4 K/mm3 (0.1-1.0); Neutrophils # 3.4 K/mm3 (1.8-7.8); White Blood Count 4.7 K/mm3 (4.8-10.8)
[2024-09-12 12:26] LABS: Albumin Level 3.7 g/dl (3.5-5.0); Chloride 102 mmol/L (98-107); Potassium 4.8 mmoL/L (3.5-5.1); Sodium 136 mmol/L (136-145)
[2024-09-12 12:29] LABS: Alanine Aminotransferase 17 U/L (12-78); Albumin/Globulin Ratio 1.5 (1.1-1.8); Alkaline Phosphatase 118 U/L (38-126); Anion Gap 9.8 mEq/L (5-15); Aspartate Amino Transferase 20 U/L (17-59); Bilirubin,Total 0.5 mg/dl (0.2-1.3); Blood Urea Nitrogen 13 mg/dl (9-20); Calcium 8.8 mg/dl (8.4-10.2); Carbon Dioxide 29 mmol/L (22.0-30.0); Creatinine Clearance Estimated 68 mL/min (50-200); Estimated Glomerular Filt Rate 64 ml/min (>60); GFR (African American) 78 ML/MIN (>60); Globulin 2.4 g/dL (1.3-3.2); Glucose 267 mg/dl (74-100); Total Protein,Serum 6.1 g/dl (6.3-8.2)
[2024-09-12 12:31] LABS: Basophils % 0.6 % (0.1-2.0); Eosinophils # 0.2 K/mm3 (0.0-0.4); Eosinophils % 3.2 % (0.1-12.0); Hematocrit 29.9 % (42.0-52.0); Lymphocytes % 15.8 % (10-50); Mean Corpuscular HGB Conc 28.1 g/dL (31.8-35.4); Mean Platelet Volume 9.1 fl (7.4-10.4); Monocytes % 8.4 % (1.7-9.3); Neutrophils % 71.8 % (37.0-80.0); Platelet Count 254 K/mm3 (142-424); Red Blood Count 4.04 M/mm3 (4.60-6.20); Red Cell Distribution Width 17.6 % (11.5-17.5)
[2024-09-12 12:35] LABS: C-Reactive Protein 9.7 mg/L (0-4)
--- NOTE | 2024-09-12 12:44 | PC.NURSE ---
Called [facility] for a consult per Dr. Nicolas.
--- NOTE | 2024-09-12 12:48 | HMH.EDGENADL ---
Discharge Plan Disposition Patient Disposition: Admitted Condition: Good Clinical Impressions Clinical Impression: Infected pacemaker Discharge ED Provider: Cinthia Nicolas General Adult HPI General Chief complaint: Recheck/Abnormal Lab/Rx Stated complaint: bleeding from pacemaker Time Seen by Provider: 09/12/24 11:33 Mode of Arrival: Wheelchair Source of Information: Patient Limitations: No Limitations Description of Symptoms (Recalled from ER Triage Doc. by RN): pt presents to ED with c/o drainage from his pacemaker site. pt reports bleeding began this morning. but he also noticed some clear liquid drainage as well. pacemaker was placed 2 weeks ago at per pt report. 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 Patient states that he is having some yellow bloody drainage that smells bad from his pacemaker site, as it had busted open overnight. No fevers or other systemic symptoms, otherwise he is feeling and has been doing fine. Related Data Home Medications ?Medication ?Instructions ?Recorded ?Confirmed tamsulosin 0.4 mg capsule 0.4 mg PO DAILY 11/22/23 09/12/24 ferrous gluconate 324 mg (38 mg 324 mg PO DAILY 03/31/24 07/19/24 iron) tablet oxybutynin chloride 10 mg 10 mg PO DAILY 05/28/24 07/19/24 tablet,extended release 24 hr torsemide 10 mg tablet 30 mg PO DAILY 07/19/24 carvedilol 3.125 mg tablet 3.125 mg PO BID 09/12/24 gabapentin 300 mg capsule 300 mg PO BID 09/12/24 09/12/24 pen needle, diabetic 32 gauge x 09/12/24 09/12/24 (BD Jayne 2nd Gen Pen Needle) Previous Rx's ?Medication ?Instructions ?Recorded tiotropium 2.5 mcg-olodaterol 2.5 2 puff inhalation DAILY Breathing 11/21/23 mcg/actuation mist for inhalation problems #4 grams (Stiolto Respimat) rosuvastatin 20 mg tablet 20 mg PO DAILY #90 tabs 05/10/24 rivaroxaban 15 mg tablet (Xarelto) 15 mg PO QPMWITHMEAL #60 tabs 05/14/24 empagliflozin 10 mg tablet 10 mg PO DAILY #90 tabs 05/23/24 (Jardiance) albuterol sulfate 90 mcg/actuation 2 puff inhalation Q6H PRN 06/25/24 aerosol inhaler shortness of breath or wheezing #8.5 grams gemfibrozil 600 mg tablet 600 mg PO BID #90 tabs 06/25/24 insulin NPH-regular 70-30 U-100 50 unit (0.5 mL) SQ BID #15 mL 07/05/24 insulin 100 unit/mL subcutaneous pen (Humulin 70/30 U-100 KwikPen) irbesartan 75 mg tablet 37.5 mg (1/2 x 75 mg) PO DAILY 30 07/10/24 days #90 tabs spironolactone 25 mg tablet 25 mg PO DAILY #90 tabs 07/10/24 finasteride 5 mg tablet 5 mg PO HS #90 tabs 07/16/24 pantoprazole 40 mg tablet,delayed 40 mg PO BID #60 tabs 08/27/24 release (Protonix) Allergies Allergy/AdvReac Type Severity Reaction Status Date / Time oxycodone Allergy Intermediate I-RASH Verified 09/12/24 12:16 Sulfa (Sulfonamide Allergy Unknown Unknown Verified 09/12/24 12:16 Antibiotics) allergy reaction aspirin AdvReac Intermediate Other Verified 09/12/24 12:16 [facility] Disclaimer: The information contained in this section may have been updated after the patient was seen, as this information can be updated by other users. Medical History Chronic kidney disease Bradycardia HLD (hyperlipidemia) Atrial fibrillation Atypical angina HTN (hypertension) Morbid obesity with BMI of 40.0-44.9, adult CKD stage 3a, GFR 45-59 ml/min Iron deficiency anemia Multiple pulmonary nodules Chronic hypoxemic respiratory failure COPD (chronic obstructive pulmonary disease) Pulmonary emphysema Stopped smoking with greater than 30 pack year history Lung nodule Dyspnea on exertion Sleep apnea Diabetes mellitus Abnormal EKG JUAN FRANCISCO (cerebral atherosclerosis) Edema Pre-op evaluation Claudication Paroxysmal atrial fibrillation HHD (hypertensive heart disease) Surgical History History of prostate surgery History of heart artery stent Family History Other Anemia Coronary artery disease Diabetes Heart attack Hyperlipidemia Hypertension Stroke Social History Smoking Status: Former smoker tobacco type: cigarettes packs per day: 2 second hand exposure: No alcohol intake: never substance use type: denies use current occupational status: retired Travel in the last 8 weeks: None household members: spouse housing: house current occupational exposures/hazards: No caffeine: Yes Have you lived/traveled outside [place] in past 30 days?: No Contact w/someone who lives/traveled outside [place] past 30 days?: No Exposure to someone with infectious disease in past 14 days?: No Do you have a fever (greater than 100.4 F or 38 C)?: No Have you tested positive for COVID-19: No Exposed to someone with COVID-19 in past 14 days?: No Do you have a sore throat?: No Do you have a cough?: No Do you have any weakness?: No Do you have any diarrhea?: No Are you experiencing any unusual bleeding?: Yes Do you have any muscle aches/pain?: No Do you have any abdominal pain?: No Are you experiencing loss of taste or smell?: No Other Medical History Have you received the Flu Vaccine for this season: No Have you received the Pneumonia Vaccine: Yes ROS Obtained: Yes All systems reviewed & no additional complaints except as documented Physical Exam General General appearance: alert and in no apparent distress Head Head exam: atraumatic and normocephalic Eye Eye exam: Present normal appearance, PERRL and EOMI ENT ENT exam: Present normal exam, normal oropharynx, mucous membranes moist and normal external ear exam Neck Neck exam: Present normal inspection, full ROM and trachea midline; Absent tenderness Chest Chest inspection: Present symmetric chest wall rise and other (Localized redness and area of fluctuance at the pacer site with a small area that is open and expressing cloudy serosanguineous drainage. No red streaking away); Absent tenderness Respiratory Respiratory exam: Present normal lung sounds bilaterally; Absent respiratory distress, wheezes, stridor or accessory muscle use Cardiovascular Cardiovascular exam: Present regular rate and normal rhythm Abdominal Exam Abdominal exam: Present soft; Absent distention, tenderness or guarding Extremities Exam Extremities exam: Present normal inspection, full ROM and normal capillary refill; Absent tenderness or edema Back Exam Back exam: Present normal inspection and full ROM; Absent tenderness Neurological Exam Neurological exam: Present alert, oriented X3, CN II-XII intact and normal gait; Absent motor sensory deficit Psychiatric Psychiatric exam: Present normal affect and normal mood Skin Skin exam: Present warm and dry Medical Decision Making Medical Records Medical records reviewed: Yes I reviewed the patient's medical records. Screening: Per USPSTF and CDC recommendations, given the prevalence of disease in our region, it is our hospital?s policy to screen for HIV and viral Hepatitis for all patients aged 18 and over and those with ongoing risk factors. Bill Inquiry Pt receiving controlled substance: No Vital Signs: 09/12/24 11:49 09/12/24 12:30 09/12/24 13:00 Temperature 97.9 F Temperature Source Oral Pulse Rate 70 65 Pulse Rate [Left Radial] 88 Respiratory Rate 16 20 20 Blood Pressure 162/70 H 186/76 H Blood Pressure [Right Arm] 155/61 H Blood Pressure Mean [Right Arm] 92 Blood Pressure Source Blood Pressure Position Blood Pressure Position [Right Arm] 02 Sat by Pulse Oximetry 95 96 95 Oxygen Delivery Method Room Air Room Air Room Air 09/12/24 13:30 09/12/24 13:49 09/12/24 14:00 Temperature Temperature Source Pulse Rate 70 70 Pulse Rate [Left Radial] Respiratory Rate 16 16 13 Blood Pressure 196/82 H 186/80 H Blood Pressure [Right Arm] Blood Pressure Mean [Right Arm] Blood Pressure Source Blood Pressure Position Blood Pressure Position [Right Arm] 02 Sat by Pulse Oximetry 97 96 Oxygen Delivery Method Room Air Room Air 09/12/24 14:30 09/12/24 15:01 09/12/24 15:13 Temperature 97.9 F Temperature Source Oral Pulse Rate 70 71 Pulse Rate [Left Radial] 70 Respiratory Rate 13 14 21 Blood Pressure 175/77 H 198/78 H Blood Pressure [Right Arm] 203/77 H Blood Pressure Mean [Right Arm] 119 Blood Pressure Source Blood Pressure Position Blood Pressure Position [Right Arm] Supine 02 Sat by Pulse Oximetry 96 95 94 L Oxygen Delivery Method Room Air Room Air Room Air 09/12/24 15:15 Temperature 97.9 F Temperature Source Oral Pulse Rate 71 Pulse Rate [Left Radial] Respiratory Rate 14 Blood Pressure 198/78 H Blood Pressure [Right Arm] Blood Pressure Mean [Right Arm] Blood Pressure Source Automatic Cuff Blood Pressure Position Sitting Blood Pressure Position [Right Arm] 02 Sat by Pulse Oximetry Oxygen Delivery Method Room Air Lab Data Lab results reviewed: Yes I reviewed the patient's lab results. Lab Results 09/12/24 12:11: WBC 4.7 L, RBC 4.04 L, Hgb 8.4 L, Hct 29.9 L, MCV 74.0 L, MCH 20.8 L, MCHC 28.1 L, RDW 17.6 H, Plt Count 254, MPV 9.1, Neut % (Auto) 71.8, Lymph % (Auto) 15.8, Tompkins % (Auto) 8.4, Eos % (Auto) 3.2, Baso % (Auto) 0.6, Neut # (Auto) 3.4, Lymph # (Auto) 0.8, Tompkins # (Auto) 0.4, Eos # (Auto) 0.2, Baso # (Auto) 0.0, ESR 51 H, Sodium 136, Potassium 4.8, Chloride 102, Carbon Dioxide 29, Anion Gap 9.8, BUN 13, Creatinine 1.10, Estimated Creat Clear 68, Estimated GFR 64, Est GFR ( Amer) 78, Glucose 267 H, Calcium 8.8, Total Bilirubin 0.5, AST 20, ALT 17, Alkaline Phosphatase 118, C-Reactive Protein 9.7 H, Total Protein 6.1 L, Albumin 3.7, Globulin 2.4, Albumin/Globulin Ratio 1.5, HCV Ab GORDO w/Rflx PCR Qn Negative, HIV Ag/Ab Combo Qual Negative 09/12/24 13:27: SARS-CoV-2 (PCR) Not detected, Influenza A Untype (PCR) Not detected, Influenza Type B (PCR) Not detected 09/12/24 12:11 09/12/24 12:11 Orders (Tests/Meds): ED MEDICATIONS Discontinued Medications Generic Name Dose Route Start Last Admin Trade Name Freq PRN Reason Stop Dose Admin Ceftriaxone Sodium 2 gm/ 100 mls @ 200 mls/hr 09/12/24 14:00 09/12/24 14:01 Sodium Chloride IV 09/12/24 14:29 200 mls/hr ONCE ONE Administration Vancomycin/PEG/NADA/Lysine/Water 1.75 gm in 350 mls @ 175 mls/hr 09/12/24 13:45 09/12/24 14:18 Vancomycin 1.75gm/350ml (Peg) Premix IV 09/12/24 15:44 175 mls/hr ONCE ONE Administration Miscellaneous 1 each 09/12/24 13:45 Vancomycin Consult Request NOTAPPLIC 10/12/24 13:44 CONSULT PHARMACY [facility] ORDERS Category Date Time Status Cardiology Consult [Consult to Cardiology] [CONS] Cons 09/12/24 12:52 Active Routine CRP [C-Reactive Protein] Stat Lab 09/12/24 12:11 Completed Complete Blood Count Auto Diff Stat Lab 09/12/24 12:11 Completed Comprehensive Metabolic Panel Stat Lab 09/12/24 12:11 Completed ESR [Erythrocyte Sedimentation Rate] Stat Lab 09/12/24 12:11 Completed HIV Combo Stat Lab 09/12/24 12:11 Completed Hepatitis C Ab Qual. W/ RFX Stat Lab 09/12/24 12:11 Completed Rapid PCR Covid and Flu A/B Stat Lab 09/12/24 13:27 Completed Blood Culture Stat Micro 09/12/24 13:53 Received Wound Culture and Gram Stain Stat Micro 09/12/24 12:41 Results ECG Data Tracing #1: I reviewed this ECG and interpreted as documented below: Paced at a rate of [address] changes concerning for STEMI. ECG initial impression date: 09/12/24 ECG initial impression time: 11:49 Medical Decision Narrative: In summary, this patient is a 84-year-old male presenting to the Emergency Department for evaluation of abnormal drainage from pacemaker placement site. Differential diagnoses considered include but are not limited to maker pocket infection, sepsis, bacteremia, normal serosanguineous drainage, seroma. Ruling out the most morbid conditions drove assessment. It should be noted patient's history includes bradycardia arrhythmia, cardiovascular disease, CHF, hypertension, hyperlipidemia, diabetes which may or may not be at goal therapy. This complicates all aspects of care by increasing patient's risk for morbidity. I reviewed patient's past medical records and noted placement at as detailed in HPI. On exam, the patient is sitting upright in no acute distress with no systemic concerns or complaints. He states he is feeling fine. He is afebrile with normal vital signs on cardiac telemetry. Workup included wound culture, CBC, CMP, ESR, CRP. I had an interactive discussion with Dr. Hodge at who recommended having her combatant swimmer come take a look at it. Given this, cardiology was consulted after interactive discussion. Labs obtained demonstrated mild leukopenia without neutropenia. He also has slightly worsened chronic anemia. Patient does have elevated ESR with only mildly elevated CRP. Blood culture sent as well as wound culture. Patient was started on IV vancomycin and Rocephin. I had interactive discussion with Dr. Aly with cardiology here who advised that the patient likely needs pacemaker replacement and evacuation of that pocket, and since it was done elsewhere and the patient has advanced heart failure and likely is completely pacer dependent, he felt he would be better served at higher level of care. [facility] because they would not be able to remove and replace pacemaker there. Given this, I then had an interactive discussion with Dr. Sales in the transfer center who waitlisted the patient for a bed after speaking with Dr. Hodge again. While waitlisted for , I feel the patient would benefit from admission here for continued IV antibiotics. I had an interactive discussion with the hospitalist who admitted the patient in stable condition. Critical Care Critical Care Time Critical Care Time: No
[2024-09-12 12:58] LABS: Erythrocyte Sedimentation Rate 51 mm/hr (0-20)
--- NOTE | 2024-09-12 13:02 | PC.NURSE ---
CARDIOLOGY AT BEDSIDE
--- NOTE | 2024-09-12 13:03 | PC.NURSE ---
ROUNDED ON THE PT. THE PT VOICES THAT HE DOES NOT NEED ANYTHING AT THIS TIME. CALL LIGHT IS WITHIN REACH OF THE PT.
--- NOTE | 2024-09-12 13:21 | PC.NURSE ---
[facility] DUE TO INFECTED PACE MAKER. [facility] SA[facility] CALL [facility].
--- NOTE | 2024-09-12 13:28 | P.CONCA_ITS ---
History of Present Illness History of Present Illness Consult date: 09/12/24 Requesting physician: Cinthia Nicolas Consult reason: known to you Chief complaint: pacemaker is leaking History of present illness: 84-year-old white male established patient of our office with a history of CAD status post CABG and atrial fibrillation. Patient did not follow-up in the clinic for several years. Presented here to the emergency room in April with pneumonia and newly reduced ejection fraction of 30%. Left heart cath eventually revealed normal cors. He has been following in the clinic for GDMT. Last seen in the office on July 19 and was stable. Repeat limited echo ordered to assess for possible BiV ICD. In the interim patient had a fall at home and presented to the emergency room where he was found to have subdural hematoma. He was subsequently transferred to trauma. Apparently while admitted to their service they went ahead and placed an ICD. Patient called our office today stating his pacemaker site was oozing brown and bloody liquid so we advised to present to the emergency room for evaluation which is where we are seeing him now. Pacemaker site left chest is erythematous and slightly tender to palpation. There is a caramel colored liquid which can be easily expressed from the wound. Patient states his shirt had been saturated with the liquid and with blood earlier in the day. He is afebrile, WBC 4.7. He is agreeable to admission and device explant. [facility] Disclaimer: The information contained in this section may have been updated after the patient was seen, as this information can be updated by other users. Medical History Chronic kidney disease Bradycardia HLD (hyperlipidemia) Atrial fibrillation Atypical angina HTN (hypertension) Morbid obesity with BMI of 40.0-44.9, adult CKD stage 3a, GFR 45-59 ml/min Iron deficiency anemia Multiple pulmonary nodules Chronic hypoxemic respiratory failure COPD (chronic obstructive pulmonary disease) Pulmonary emphysema Stopped smoking with greater than 30 pack year history Lung nodule Dyspnea on exertion Sleep apnea Diabetes mellitus Abnormal EKG JUAN FRANCISCO (cerebral atherosclerosis) Edema Pre-op evaluation Claudication Paroxysmal atrial fibrillation HHD (hypertensive heart disease) Surgical History History of prostate surgery History of heart artery stent Family History Other Anemia Coronary artery disease Diabetes Heart attack Hyperlipidemia Hypertension Stroke Social History Smoking Status: Former smoker tobacco type: cigarettes packs per day: 2 second hand exposure: No alcohol intake: never substance use type: denies use current occupational status: retired Travel in the last 8 weeks: None household members: spouse housing: house current occupational exposures/hazards: No caffeine: Yes Have you lived/traveled outside US in past 30 days?: No Contact w/someone who lives/traveled outside US past 30 days?: No Exposure to someone with infectious disease in past 14 days?: No Do you have a fever (greater than 100.4 F or 38 C)?: No Have you tested positive for COVID-19: No Exposed to someone with COVID-19 in past 14 days?: No Do you have a sore throat?: No Do you have a cough?: No Do you have any weakness?: No Do you have any diarrhea?: No Are you experiencing any unusual bleeding?: Yes Do you have any muscle aches/pain?: No Do you have any abdominal pain?: No Are you experiencing loss of taste or smell?: No Review of Systems Constitutional Constitutional: Denies fatigue and Denies weakness Comments: drainage from PPM site Eyes Eyes: Denies loss of vision ENT Ears, Nose, Mouth, and Throat: Denies hearing loss and Denies vertigo *Cardiovascular Cardiovascular: Denies chest pain, Denies dyspnea and Denies syncope *Respiratory Respiratory: Denies cough and Denies dyspnea *Gastrointestinal Gastrointestinal: Denies change in stool character, Denies nausea and Denies vo miting *Genitourinary Genitourinary: Denies difficulty urinating *Musculoskeletal Musculoskeletal: Denies muscle weakness Integumentary/Breasts Skin/Breast: Denies changing lesions *Neurologic Neurologic: Denies loss of vision, Denies syncope, Denies vertigo and Denies weakness Endocrine Endocrine: Denies fatigue Exam Data for Last 24 hours Vital signs and Labs for Last 24 Hours: Temp Pulse Resp BP Pulse Ox O2 Del Method 97.9 F 70 20 162/70 H 96 Room Air 09/12/24 11:49 09/12/24 12:30 09/12/24 12:30 09/12/24 12:30 09/12/24 12:30 09/12/24 12:30 Laboratory Results - last 24 hr 09/12/24 12:11: WBC 4.7 L, RBC 4.04 L, Hgb 8.4 L, Hct 29.9 L, MCV 74.0 L, MCH 20.8 L, MCHC 28.1 L, RDW 17.6 H, Plt Count 254, MPV 9.1, Neut % (Auto) 71.8, Lymph % (Auto) 15.8, [place] % (Auto) 8.4, Eos % (Auto) 3.2, Baso % (Auto) 0.6, Neut # (Auto) 3.4, Lymph # (Auto) 0.8, [place] # (Auto) 0.4, Eos # (Auto) 0.2, Baso # (Auto) 0.0, ESR 51 H, Sodium 136, Potassium 4.8, Chloride 102, Carbon Dioxide 29, Anion Gap 9.8, BUN 13, Creatinine 1.10, Estimated Creat Clear 68, Estimated GFR 64, Est GFR ( Amer) 78, Glucose 267 H, Calcium 8.8, Total Bilirubin 0.5, AST 20, ALT 17, Alkaline Phosphatase 118, C-Reactive Protein 9.7 H, Total Protein 6.1 L, Albumin 3.7, Globulin 2.4, Albumin/Globulin Ratio 1.5 I & O for Last 24 hours: Intake & Output 09/09/24 09/10/24 09/11/24 09/12/24 23:59 23:59 23:59 23:59 Weight 205 lb Constitutional Constitutional: no acute distress and cooperative *Routine HEENT Exam Eye: Present PERRL Routine Chest/Breast/Axilla Exam Comments: Left chest exam reveals well-approximated ICD incision which has about 1 cm erythema surrounding margins of the wound. There is no fluctuance but caramel colored liquid can be easily expressed with palpation. There is no streaking noted. *Routine Respiratory Exam Respiratory: Present CTA bilaterally; Absent accessory muscle use, wheezes or crackles *Routine Cardiovascular Exam Cardiovascular: Present RRR, Normal S1 and Normal S2; Absent murmur, gallop or rubs *Routine Abdominal Exam Abdominal: Present soft; Absent tenderness *Routine Extremities Exam Extremities: Present pulses intact; Absent cyanosis or edema *Routine Skin Exam Skin: Present intact; Absent erythema or wounds *Routine Neurological Exam Neurological: Present alert and oriented X3 Routine Psychiatric Exam Psychiatric: Present cooperative Meds Home Medications and Allergies Home Medications ?Medication ?Instructions ?Recorded ?Confirmed ?Type tamsulosin 0.4 mg capsule 0.4 mg PO DAILY 11/22/23 09/12/24 History rosuvastatin 20 mg tablet 20 mg PO DAILY #90 tabs 05/10/24 09/12/24 Rx rivaroxaban 15 mg tablet (Xarelto) 15 mg PO QPMWITHMEAL #60 tabs 05/14/24 09/12/24 Rx empagliflozin 10 mg tablet 10 mg PO DAILY #90 tabs 05/23/24 09/12/24 Rx (Jardiance) oxybutynin chloride 10 mg 10 mg PO DAILY 05/28/24 09/12/24 History tablet,extended release 24 hr albuterol sulfate 90 mcg/actuation 2 puff inhalation Q6H PRN 06/25/24 09/12/24 Rx aerosol inhaler shortness of breath or wheezing #8.5 grams gemfibrozil 600 mg tablet 600 mg PO BID #90 tabs 06/25/24 09/12/24 Rx insulin NPH-regular 70-30 U-100 50 unit (0.5 mL) SQ BID #15 mL 07/05/24 09/12/24 Rx insulin 100 unit/mL subcutaneous pen (Humulin 70/30 U-100 KwikPen) irbesartan 75 mg tablet 37.5 mg (1/2 x 75 mg) PO DAILY 30 07/10/24 09/12/24 Rx days #90 tabs spironolactone 25 mg tablet 25 mg PO DAILY #90 tabs 07/10/24 09/12/24 Rx finasteride 5 mg tablet 5 mg PO HS #90 tabs 07/16/24 09/12/24 Rx torsemide 10 mg tablet 30 mg PO DAILY 07/19/24 09/12/24 History pantoprazole 40 mg tablet,delayed 40 mg PO BID #60 tabs 08/27/24 09/12/24 Rx release (Protonix) carvedilol 3.125 mg tablet 3.125 mg PO BID 09/12/24 09/12/24 History gabapentin 300 mg capsule 300 mg PO BID 09/12/24 09/12/24 History pen needle, diabetic 32 gauge x 09/12/24 09/12/24 History 5/32 (BD Jayne 2nd Gen Pen Needle) tamsulosin 0.4 mg capsule 0.4 mg PO HS 09/12/24 09/12/24 History New Prescriptions to Start Prescriptions: Allergies Allergy/AdvReac Type Severity Reaction Status Date / Time oxycodone Allergy Intermediate I-RASH Verified 09/12/24 12:16 Sulfa (Sulfonamide Allergy Unknown Unknown Verified 09/12/24 12:16 Antibiotics) allergy reaction aspirin AdvReac Intermediate Other Verified 09/12/24 12:16 Assessment and Plan *Assessment and plan (1) Infected pacemaker: Status: Acute Category: Medical Code(s): T82.7XXA - Infection and inflammatory reaction due to other cardiac and vascular devices, implants and grafts, initial encounter (2) Atrial fibrillation: Status: Acute Qualifiers: Atrial fibrillation type: longstanding persistent Qualified Code(s): I48.11 - Longstanding persistent atrial fibrillation Category: Medical Code(s): I48.91 - Unspecified atrial fibrillation (3) HFrEF (heart failure with reduced ejection fraction): Status: Acute Category: Medical Code(s): I50.20 - Unspecified systolic (congestive) heart failure (4) CAD (coronary artery disease): Status: Acute Qualifiers: Associated angina: with other forms of angina Coronary Disease- Associated Artery/Lesion type: bypass graft [place] vs. transplanted heart: [place] heart Qualified Code(s): I25.708 - Atherosclerosis of coronary artery bypass graft(s), unspecified, with other forms of angina pectoris Category: Medical Code(s): I25.10 - Atherosclerotic heart disease of [place] coronary artery without angina pectoris Plan Infected ICD - was placed at - will admit to floor, will obtain wound and blood culture and start broad spectrum antibiotics and schedule ICD explant - will resume LifeVest HFrEF - known chronic dx - appears euvolemic, NYHA = 1-2 - EF 30% - hold Jadiance due to infection and risk of DKA - resume home dose irbesartan, aldactone, torsemide MV-CAD s/p CABG - CCS = 0 - [facility] 04/24 - patent arteries - Hold Xarelto due to device explant - cont BB and Statin DM - poorly controlled, last A1C >14 on 07/28/24 - glucose control per Hospitalist Hx of GI Bleed and Chronic Anemia - Hgb 8 - holding Xarelto for device explant Recent Traumatic Subdural Hematoma - no Neuro changes here CKD-III - monitor daily labs, dose adjust meds ADDENDUM: After further discussion, it appears patient is currently PPM dependent. Removal of device may require temp pacing and prolonged ho spitalization. Would be better served at [facility]. Transfer pending.
[2024-09-12 13:29] LABS: Coronavirus 19, PCR Not Detected (NotDetected); Influenza A, PCR Not Detected (NotDetected); Influenza B, PCR Not Detected (NotDetected)
--- NOTE | 2024-09-12 13:31 | PC.NURSE ---
[place] CALLED BACK, PT DID NOT HAVE PACEMAKER PLACED AT [place], IT WAS AT . [facility] SHOULD CONTACT FOR MANAGEMENT [facility] CONTACTED AT THIS TIME
--- NOTE | 2024-09-12 13:39 | PC.NURSE ---
DR CADENA SPEAKING WITH [facility]
[2024-09-12 13:42] LABS: Hepatitis C Ab Qual. W/ RFX NEGATIVE (Negative)
--- NOTE | 2024-09-12 13:44 | PC.NURSE ---
DR CADENA AT BEDSIDE TO UPDATE PT AND FAMILY
[2024-09-12] MEDS: CEFTRIAXONE SODIUM 2 GM in 0.9 % SODIUM CHLORIDE 100 ML IV (14:01)
[2024-09-12 14:18] LABS: HIV Combo NEGATIVE (Negative)
[2024-09-12] MEDS: VANCOMYCIN/WATER FOR INJ (PEG) 1.75 GM/350 ML PIGGYBACK IV (14:18)
--- NOTE | 2024-09-12 14:46 | PC.NURSE ---
spoke with [facility] medical billing supervisor for admission
--- NOTE | 2024-09-12 15:00 | PC.NURSE ---
report called to april on second floor
--- NOTE | 2024-09-12 15:18 | PC.NURSE ---
arrived by stretcher from ED
--- NOTE | 2024-09-12 17:38 | EXP.HPDC ---
General Admission date:: 09/12/24 *Admission Date: 09/12/24 *Chief complaint: Left chest pain *History of present illness: Jarrett Pemberton is a 84-year-old male with a medical history significant for HFrEF s/p BiV AICD, A-fib, CAD/CABG who presents with 2-day onset of swelling and redness at his pacemaker site. He denies any kind of trauma or other inciting factor to trigger swelling around his pacemaker site. He had a placed at . No fever/chills, chest pain, shortness of breath. [facility] was consulted by ED who graciously accepted patient for transfer for further management of suspected infected pacemaker, awaiting bed. Other workup including vital signs, CBC unremarkable. Case discussed with ED provider and decision was made to admit patient for suspected infected pacemaker site while he awaits a bed at . [facility] Disclaimer: The information contained in this section may have been updated after the patient was seen, as this information can be updated by other users. Medical History Chronic kidney disease Bradycardia HLD (hyperlipidemia) Atrial fibrillation Atypical angina HTN (hypertension) Morbid obesity with BMI of 40.0-44.9, adult CKD stage 3a, GFR 45-59 ml/min Iron deficiency anemia Multiple pulmonary nodules Chronic hypoxemic respiratory failure COPD (chronic obstructive pulmonary disease) Pulmonary emphysema Stopped smoking with greater than 30 pack year history Lung nodule Dyspnea on exertion Sleep apnea Diabetes mellitus Abnormal EKG JUAN FRANCISCO (cerebral atherosclerosis) Edema Pre-op evaluation Claudication Paroxysmal atrial fibrillation HHD (hypertensive heart disease) Surgical History History of prostate surgery History of heart artery stent Family History Other Anemia Coronary artery disease Diabetes Heart attack Hyperlipidemia Hypertension Stroke Social History Smoking Status: Former smoker tobacco type: cigarettes packs per day: 2 second hand exposure: No alcohol intake: never substance use type: denies use current occupational status: retired Travel in the last 8 weeks: None household members: spouse housing: house current occupational exposures/hazards: No caffeine: Yes Have you lived/traveled outside US in past 30 days?: No Contact w/someone who lives/traveled outside US past 30 days?: No Exposure to someone with infectious disease in past 14 days?: No Do you have a fever (greater than 100.4 F or 38 C)?: No Have you tested positive for COVID-19: No Exposed to someone with COVID-19 in past 14 days?: No Do you have a sore throat?: No Do you have a cough?: No Do you have any weakness?: No Do you have any diarrhea?: No Are you experiencing any unusual bleeding?: Yes Do you have any muscle aches/pain?: No Do you have any abdominal pain?: No Are you experiencing loss of taste or smell?: No Other Medical History Have you received the Flu Vaccine for this season: Yes Have you received the Pneumonia Vaccine: Yes Review of Systems Constitutional Constitutional: Denies weakness Eyes Eyes: Denies loss of vision ENT Ears, Nose, Mouth, and Throat: Denies vertigo *Cardiovascular Cardiovascular: Denies syncope *Neurologic Neurologic: Denies loss of vision, Denies syncope, Denies vertigo and Denies weakness Exam Data for Last 24 hours Vital signs and Labs for Last 24 Hours: Temp Pulse Resp BP Pulse Ox O2 Del Method 97.9 F 71 14 198/78 H 94 L Room Air 09/12/24 15:15 09/12/24 15:15 09/12/24 15:15 09/12/24 15:15 09/12/24 15:13 09/12/24 15:15 Laboratory Results - last 24 hr 09/12/24 12:11: WBC 4.7 L, RBC 4.04 L, Hgb 8.4 L, Hct 29.9 L, MCV 74.0 L, MCH 20.8 L, MCHC 28.1 L, RDW 17.6 H, Plt Count 254, MPV 9.1, Neut % (Auto) 71.8, Lymph % (Auto) 15.8, [place] % (Auto) 8.4, Eos % (Auto) 3.2, Baso % (Auto) 0.6, Neut # (Auto) 3.4, Lymph # (Auto) 0.8, [place] # (Auto) 0.4, Eos # (Auto) 0.2, Baso # (Auto) 0.0, ESR 51 H, Sodium 136, Potassium 4.8, Chloride 102, Carbon Dioxide 29, Anion Gap 9.8, BUN 13, Creatinine 1.10, Estimated Creat Clear 68, Estimated GFR 64, Est GFR ( Amer) 78, Glucose 267 H, Calcium 8.8, Total Bilirubin 0.5, AST 20, ALT 17, Alkaline Phosphatase 118, C-Reactive Protein 9.7 H, Total Protein 6.1 L, Albumin 3.7, Globulin 2.4, Albumin/Globulin Ratio 1.5, HCV Ab GORDO w/Rflx PCR Qn Negative, HIV Ag/Ab Combo Qual Negative 09/12/24 13:27: SARS-CoV-2 (PCR) Not detected, Influenza A Untype (PCR) Not detected, Influenza Type B (PCR) Not detected I & O for Last 24 hours: Intake & Output 09/09/24 09/10/24 09/11/24 09/12/24 23:59 23:59 23:59 23:59 Weight 89.811 kg Microbiology Reports for the Last 24 Hours: Microbiology 09/12/24 12:41 Chest Gram Stain - Final Constitutional Constitutional: no acute distress *Routine HEENT Exam Head: Present normocephalic Eye: Present EOMI and PERRL ENT: Present mucous membranes moist *Routine Neck Exam Neck: Present supple; Absent lymphadenopathy *Routine Respiratory Exam Respiratory: Present CTA bilaterally *Routine Cardiovascular Exam Cardiovascular: Present RRR *Routine Abdominal Exam Abdominal: Present soft and normoactive bowel sounds; Absent tenderness *Routine Rectal Exam Rectal:: deferred *Routine Genitalia Exam Genitalia:: deferred *Routine Extremities Exam Extremities: Absent cyanosis, clubbing or edema *Routine Skin Exam Skin: Present warm; Absent rash *Routine Neurological Exam Neurological: Present alert and oriented X3 Detailed Chest Wall Exam Comments: Left-sided chest swelling, erythema, mild yellow purulence from pacemaker site. Meds Home Medications and Allergies Home Medications ?Medication ?Instructions ?Recorded ?Confirmed ?Type tamsulosin 0.4 mg capsule 0.4 mg PO DAILY 11/22/23 09/12/24 History rosuvastatin 20 mg tablet 20 mg PO DAILY #90 tabs 05/10/24 09/12/24 Rx rivaroxaban 15 mg tablet (Xarelto) 15 mg PO QPMWITHMEAL #60 tabs 05/14/24 09/12/24 Rx empagliflozin 10 mg tablet 10 mg PO DAILY #90 tabs 05/23/24 09/12/24 Rx (Jardiance) oxybutynin chloride 10 mg 10 mg PO DAILY 05/28/24 09/12/24 History tablet,extended release 24 hr albuterol sulfate 90 mcg/actuation 2 puff inhalation Q6H PRN 06/25/24 09/12/24 Rx aerosol inhaler shortness of breath or wheezing #8.5 grams gemfibrozil 600 mg tablet 600 mg PO BID #90 tabs 06/25/24 09/12/24 Rx insulin NPH-regular 70-30 U-100 50 unit (0.5 mL) SQ BID #15 mL 07/05/24 09/12/24 Rx insulin 100 unit/mL subcutaneous pen (Humulin 70/30 U-100 KwikPen) irbesartan 75 mg tablet 37.5 mg (1/2 x 75 mg) PO DAILY 30 07/10/24 09/12/24 Rx days #90 tabs spironolactone 25 mg tablet 25 mg PO DAILY #90 tabs 07/10/24 09/12/24 Rx finasteride 5 mg tablet 5 mg PO HS #90 tabs 07/16/24 09/12/24 Rx torsemide 10 mg tablet 30 mg PO DAILY 07/19/24 09/12/24 History pantoprazole 40 mg tablet,delayed 40 mg PO BID #60 tabs 08/27/24 09/12/24 Rx release (Protonix) carvedilol 3.125 mg tablet 3.125 mg PO BID 09/12/24 09/12/24 History gabapentin 300 mg capsule 300 mg PO BID 09/12/24 09/12/24 History pen needle, diabetic 32 gauge x 09/12/24 09/12/24 History 5/32 (BD Jayne 2nd Gen Pen Needle) tamsulosin 0.4 mg capsule 0.4 mg PO HS 09/12/24 09/12/24 History New Prescriptions to Start Prescriptions: Allergies Allergy/AdvReac Type Severity Reaction Status Date / Time oxycodone Allergy Intermediate I-RASH Verified 09/12/24 12:16 Sulfa (Sulfonamide Allergy Unknown Unknown Verified 09/12/24 12:16 Antibiotics) allergy reaction aspirin AdvReac Intermediate Other Verified 09/12/24 12:16 Hospital Course Hospital Course Hospital Course: [facility] is a 84-year-old male with a medical history significant for HFrEF s/p BiV AICD, A-fib, CAD/CABG who presents with 2-day onset of swelling and redness at his pacemaker site. He denies any kind of trauma or other inciting factor to trigger swelling around his pacemaker site. He had a placed at . No fever/chills, chest pain, shortness of breath. [facility] was consulted by ED who graciously accepted patient for transfer for further management of suspected infected pacemaker, awaiting bed. Other workup including vital signs, CBC unremarkable. Case discussed with ED provider and decision was made to admit patient for suspected infected pacemaker site while he awaits a bed at . #Suspected infected pacemaker site #HFrEF #A-fib ? History of HFrEF s/p BiV AICD. ? Endorses swelling, redness, and yellow drainage over the past 2 days. No fever/chills. ? HFrEF currently euvolemic. A-fib currently rate controlled. ? [facility] graciously accepted patient for transfer for further evaluation management of infected pacemaker site. Results Data Completed and Pending Labs on day of discharge: Labs from last 24 hours 09/12/24 09/12/24 13:27 12:11 WBC 4.7 L RBC 4.04 L Hgb 8.4 L Hct 29.9 L MCV 74.0 L MCH 20.8 L MCHC 28.1 L RDW 17.6 H Plt Count 254 MPV 9.1 Neut % (Auto) 71.8 Lymph % (Auto) 15.8 [place] % (Auto) 8.4 Eos % (Auto) 3.2 Baso % (Auto) 0.6 Neut # (Auto) 3.4 Lymph # (Auto) 0.8 [place] # (Auto) 0.4 Eos # (Auto) 0.2 Baso # (Auto) 0.0 ESR 51 H Sodium 136 Potassium 4.8 Chloride 102 Carbon Dioxide 29 Anion Gap 9.8 BUN 13 Creatinine 1.10 Estimated Creat Clear 68 Estimated GFR 64 Est GFR ( Amer) 78 Glucose 267 H Calcium 8.8 Total Bilirubin 0.5 AST 20 ALT 17 Alkaline Phosphatase 118 C-Reactive Protein 9.7 H Total Protein 6.1 L Albumin 3.7 Globulin 2.4 Albumin/Globulin Ratio 1.5 SARS-CoV-2 (PCR) Not detected HCV Ab GORDO w/Rflx PCR Qn Negative HIV Ag/Ab Combo Qual Negative Influenza A Untype (PCR) Not detected Influenza Type B (PCR) Not detected DS: Diagnosis Discharge Diagnosis (1) Infected pacemaker: Status: Acute Code(s): T82.7XXA - Infection and inflammatory reaction due to other cardiac and vascular devices, implants and grafts, initial encounter (2) Atrial fibrillation: Status: Acute Code(s): I48.91 - Unspecified atrial fibrillation Qualifiers: Atrial fibrillation type: longstanding persistent Qualified Code(s): I48.11 - Longstanding persistent atrial fibrillation (3) HFrEF (heart failure with reduced ejection fraction): Status: Acute Code(s): I50.20 - Unspecified systolic (congestive) heart failure (4) CAD (coronary artery disease): Status: Acute Code(s): I25.10 - Atherosclerotic heart disease of [place] coronary artery without angina pectoris Qualifiers: Associated angina: with other forms of angina Coronary Disease-Associated Artery/Lesion type: bypass graft [place] vs. transplanted heart: [place] heart Qualified Code(s): I25.708 - Atherosclerosis of coronary artery bypass graft(s), unspecified, with other forms of angina pectoris Discharge Plan Disposition Patient Disposition: Xfer Short-Term Hosp Condition: Fair Discharge Order Discharge Orders: Discharge Order (Routine); Ordered 09/12/24 Ordered By: Noel Cross Follow up Plan Prescriptions/Medication Reconciliation: No Action oxybutynin chloride 10 mg tablet extended release 24hr 10 mg PO DAILY torsemide 10 mg tablet 30 mg PO DAILY tamsulosin 0.4 mg capsule 0.4 mg PO DAILY rosuvastatin 20 mg tablet 20 mg PO DAILY Qty: 90 3RF Xarelto 15 mg tablet 15 mg PO QPMWITHMEAL Qty: 60 0RF Jardiance 10 mg tablet 10 mg PO DAILY Qty: 90 0RF albuterol sulfate 90 mcg/actuation HFA aerosol inhaler 2 puff inhalation Q6H PRN (Reason: shortness of breath or wheezing) Qty: 8.5 12RF gemfibrozil 600 mg tablet 600 mg PO BID Qty: 90 1RF Humulin 70/30 U-100 KwikPen 100 unit/mL (70-30) insulin pen 50 unit SQ BID Qty: 15 3RF irbesartan 75 mg tablet 37.5 mg PO DAILY 30 Days Qty: 90 0RF spironolactone 25 mg tablet 25 mg PO DAILY Qty: 90 0RF finasteride 5 mg tablet 5 mg PO HS Qty: 90 0RF pantoprazole [Protonix] 40 mg tablet,delayed release (DR/EC) 40 mg PO BID Qty: 60 0RF (DME) pen needle, diabetic [BD Jayne 2nd Gen Pen Needle] 32 gauge x 5/32 needle See Rx Instructions .ROUTE .MEDSUPPLY Rx Instructions: As directed carvedilol 3.125 mg tablet 3.125 mg PO BID gabapentin 300 mg capsule 300 mg PO BID tamsulosin 0.4 mg capsule 0.4 mg PO HS Problem Reconciliation Problems Reviewed?: Yes Patient Discharge Instructions Patient Instructions: DI for Pacemaker Insertion, DI for Surgical Site Infection Print Language: French Providers Primary Care Provider: Andres Valencia Admit Provider: Noel Cross Attending Provider: Noel Cross
--- NOTE | 2024-09-12 18:17 | PC.NURSE ---
scant amount of serosanguinous drainage present seeping from pacemaker site. pacemaker site cleaned with chloraprep, telfa dressing applied, tegaderm placed on top. dressing is clean, dry and intact. no c/o pain.
--- NOTE | 2024-09-12 21:05 | PC.NURSE ---
called ambulance at 194 for transport . attempted to call again at 2104 for an update on transport time and unable to get ahold of anyone.
== END 2024-09-12 21:17 | disposition short-term general hospital (02) | DRG 315 ==
LOC: ER 14:41 → 2ND 14:51
PROVIDERS: Admitting Provider Student in an Organized Health Care Education/Training Program; Emergency Provider Emergency Medicine; PCP Family Medicine; Visit Provider Student in an Organized Health Care Education/Training Program
DX: T82.7XXA Infection and inflammatory reaction due to other cardiac and vascular devices, implants and grafts, initial encounter (principal); J96.11 Chronic respiratory failure with hypoxia; Z16.24 Resistance to multiple antibiotics; B95.7 Other staphylococcus as the cause of diseases classified elsewhere; E11.22 Type 2 diabetes mellitus with diabetic chronic kidney disease; J44.9 Chronic obstructive pulmonary disease, unspecified; N18.30 Chronic kidney disease, stage 3 unspecified; I12.9 Hypertensive chronic kidney disease with stage 1 through stage 4 chronic kidney disease, or unspecified chronic kidney disease; I48.91 Unspecified atrial fibrillation; E66.9 Obesity, unspecified; Z68.31 Body mass index [BMI] 31.0-31.9, adult; Z87.891 Personal history of nicotine dependence; Z79.899 Other long term (current) drug therapy; Z82.3 Family history of stroke; Z82.49 Family history of ischemic heart disease and other diseases of the circulatory system; Z83.438 Family history of other disorder of lipoprotein metabolism and other lipidemia; Z83.3 Family history of diabetes mellitus; Z88.2 Allergy status to sulfonamides; Z88.5 Allergy status to narcotic agent; Z88.8 Allergy status to other drugs, medicaments and biological substances
CPT/HCPCS: 80053; 85025; 85651; 86140; 86803; 87040; 87070; 87077; 87186; 87205; 87389; 87636; 93005; 99285; J0696; J3372